=== PATIENT | male | born 1955 | race Caucasian/White ===

== ENCOUNTER 2020-05-22 11:15 | Outpatient (REF) | payer BC, SELFPAY ==
[2020-05-22 11:57] VITALS: BP 159/86; PULSE 80; RESP 16; TEMP 37.3; O2SAT 96
[2020-05-22 11:59] VITALS: BMI 20.3
--- NOTE | 2020-05-22 12:43 | MHC.SHP ---
Pre-Procedural Eval Section A The patient is an INPATIENT: No Changes since office visit: No Cold of Flu in the past 2 weeks, No New Medical Problems, No Changes in Medication and No Patient answered all questions The History & Physical has been completed within 30 days and I have reviewed it.: Yes Section B Chief Complaint: ELEVATED PSA Allergies: Allergies Allergy/AdvReac Type Severity Reaction Status Date / Time penicillin V Allergy Unknown Unverified 02/29/20 00:00 Penicillins [PCN] AdvReac Mild UNKNOWN Unverified 04/12/20 16:18 Plan Patient has been examined and remains a candidate for the planned procedure
--- NOTE | 2020-05-22 12:44 | PM.OP ---
Brief Operative Note Date of procedure: 05/22/20 Pre-op diagnosis: Elevated PSA Post-op diagnosis: same Procedure: 1) TRUS - measure of prostate TRUS - local anesthetic to prostate block TRUS - 12 core biopsy Implants: none Surgeon: Alberto Bernal MD Anesthesia: local Estimated blood loss (mL): 0 Pathology: other (12 core biopsy) Condition: stable Disposition: same day
--- NOTE | 2020-05-22 12:45 | W.PM.OPN ---
Operative Note Operative Note Narrative: Preoperative diagnosis: Elevated PSA Postoperative diagnosis: Elevated PSA Procedure: 1. transrectal ultrasound measurement of prostate 2. transrectal ultrasound-guided pudendal nerve block 3. transrectal ultrasound-guided prostate biopsy 12 core Surgeon: Dr. Alberto Bernal Anesthetic: Local Indications for procedure: Elevated PSA Prostate Cancer Procedure: After informed consent was verified, the patient was brought into the procedure area and lay left-hand side down on the table. Patient identity confirmed. Perioperative antibiotics confirmed. Gel was placed per rectum Ultrasound probe was placed per rectum The prostate was measured in 3 dimensions Total volume equals 40 gm There were no cystic structures, there were minor calcifications noted and the prostate was homogeneous in nature A ultrasound-guided pudendal nerve block was performed using 10 cc of 1% lidocaine. 8 cc was placed at the base and 2 cc of the apex. A 12 core biopsy was performed with 6 cores each side. Two cores were taken at the apex, mid and base. Cores were spaced between lateral and medial. He tolerated the procedure well. Was able to ambulate to bathroom after 5 minutes. Printed instructions regarding antibiotic use and common side effects such as low-grade temperature and bleeding were given.
[2020-05-22 12:58] VITALS: BP 163/82; PULSE 80; RESP 16; O2SAT 96
== END 2020-05-22 11:16 | disposition home or self-care (01) ==
LOC: HO.MS 11:15
PROVIDERS: PCP Internal Medicine; Visit Provider Urology
PROC: (CPT 55700; principal; 2020-05-22 12:00)
DX: C61 Malignant neoplasm of prostate (principal); R97.20 Elevated prostate specific antigen [PSA]; Z88.0 Allergy status to penicillin
CPT/HCPCS: 55700; 76942; 88305; 88344

== ENCOUNTER → 2020-06-06 15:58 | Outpatient (BNVA) | payer BC, SELFPAY | PROVIDERS: PCP Internal Medicine; Visit Provider Urology | DX: Z76.89 Persons encountering health services in other specified circumstances (principal) ==

== ENCOUNTER 2020-09-29 06:49 | Outpatient (REF) | payer BC, SELFPAY ==
[2020-09-29 08:19] LABS: PSA,Total (Free>4and<10) 2.84 ng/mL (0.00-4.00)
== END 2020-09-29 06:50 | disposition home or self-care (01) ==
LOC: HO.LAB 06:49
PROVIDERS: PCP Internal Medicine; Visit Provider Urology
DX: N40.1 Benign prostatic hyperplasia with lower urinary tract symptoms (principal); N13.8 Other obstructive and reflux uropathy; C61 Malignant neoplasm of prostate
CPT/HCPCS: 36415; 84153

== ENCOUNTER 2021-02-12 06:32 | Outpatient (REF) | payer BC, SELFPAY ==
[2021-02-12 07:05] LABS: MANUAL DIFF FLAG NO
[2021-02-12 07:13] LABS: Basophils Absolute Auto 0.1 X10*3/uL (0.0-0.2); Basophils Percent Auto 0.7 % (0-2); Eosinophils Absolute Auto 0.3 X10*3/uL (0.0-0.4); Eosinophils Percent Auto 4.2 % (0-4); Hematocrit 50.5 % (42-52); Hemoglobin 17.6 g/dl (14.0-18.0); Imm Gran Abs Auto 0.02 X10*3/uL (0.00-0.03); Imm Gran Pct Auto 0.3 % (0.0-0.4); Lymphocytes Absolute Auto 1.8 X10*3/uL (1.2-4.9); Mean Corpuscular HGB Conc 34.9 g/dl (31.0-36.0); Mean Corpuscular Hemoglobin 32.2 pg (27.0-33.0); Mean Corpuscular Volume 92.5 fL (80-98); Mean Platelet Volume 9.7 fL (9.4-12.4); Monocytes Absolute Auto 0.8 X10*3/uL (0.1-1.2); Monocytes Percent Auto 10.6 % (2-11); Neutrophils Absolute Auto 4.4 X10*3/uL (2.0-8.3); Neutrophils Percent Auto 59.2 % (45-73); Platelet Count 281 X10*3/uL (160-400); Red Blood Count 5.46 X10*6/uL (4.60-5.80); Red Cell Distribution Width 13.2 % (11.0-16.0); White Blood Count 7.4 X10*3/uL (4.8-10.8)
[2021-02-12 07:45] LABS: Alanine Aminotransferase 22 U/L (0-40); Albumin Level 4.5 g/dL (3.5-5.0); Alkaline Phosphatase 142 U/L (39-117); Anion Gap 14 (12-20); Aspartate Amino Transferase 24 U/L (5-37); Bilirubin Total 0.7 mg/dL (0.0-1.0); Blood Urea Nitrogen 10 mg/dL (9-16); Calcium 9.8 mg/dL (8.4-10.2); Carbon Dioxide 30 mmol/L (22-29); Chloride 97 mmol/L (96-108); Cholesterol 142 mg/dL; Estimated Glomerular Filt Rate > 60; Glucose Random 94 mg/dL (60-115); HDL Cholesterol 46 mg/dL; LDL Cholesterol Calculated 83 mg/dl; Potassium 4.1 mmol/L (3.3-5.1); Sodium 137 mmol/L (135-145); Total Protein 7.6 g/dL (6.5-8.0); Triglycerides 69 mg/dL
[2021-02-12 08:07] LABS: Free T4 (Free Thyroxine) 1.06 ng/dL (0.71-1.85); Thyroid Stimulating Hormone 2.27 uIU/mL (0.32-4.0)
[2021-02-12 08:20] LABS: Folate 7.1 ng/mL (> or = 4.0); Vitamin B12 965 pg/mL (200-900)
[2021-02-12 08:33] LABS: Prostate Specific Antigen Scr 3.31 ng/mL (<0.05-4.0)
== END 2021-02-12 06:33 | disposition home or self-care (01) ==
LOC: HO.LAB 06:32
PROVIDERS: PCP Internal Medicine; Visit Provider Internal Medicine
DX: R97.20 Elevated prostate specific antigen [PSA] (principal); I10 Essential (primary) hypertension; E78.00 Pure hypercholesterolemia, unspecified
CPT/HCPCS: 36415; 80053; 80061; 82607; 82746; 84153; 84439; 84443; 85025

== ENCOUNTER 2021-06-18 06:36 | Outpatient (REF) | payer MEDICARE, SELFPAY ==
[2021-06-18 07:45] LABS: Gamma Glutamyl Transpeptidase 22 U/L (11-51)
[2021-06-18 08:07] LABS: PSA,Total (Free>4and<10) 3.34 ng/mL (0.00-4.00)
[2021-06-23 01:01] LABS: 5' Nucleotidase 3 U/L (0-10)
== END 2021-06-18 06:37 | disposition home or self-care (01) ==
LOC: HO.LAB 06:36
PROVIDERS: Absent Provider Internal Medicine; PCP Internal Medicine; Visit Provider Urology
DX: Z12.5 Encounter for screening for malignant neoplasm of prostate (principal); C61 Malignant neoplasm of prostate; R74.8 Abnormal levels of other serum enzymes
CPT/HCPCS: 36415; 82977; 83915; 84153

== ENCOUNTER → 2021-08-30 08:18 | Outpatient (BNVA) | payer MEDICARE, SELFPAY | PROVIDERS: PCP Internal Medicine; Referring Provider Internal Medicine; Visit Provider Nurse Practitioner Family | DX: R19.5 Other fecal abnormalities (principal) | CPT/HCPCS: 99202 ==

== ENCOUNTER → 2021-11-29 12:15 | Outpatient (BNVA) | payer MEDICARE, SELFPAY | PROVIDERS: PCP Internal Medicine; Visit Provider Urology | DX: C61 Malignant neoplasm of prostate (principal) | CPT/HCPCS: Q3014 ==

== ENCOUNTER 2021-12-19 07:21 | Day surgery (SDC) | payer MEDICARE, SELFPAY ==
[2021-12-13 10:57] VITALS: BMI 19.3
--- NOTE | 2021-12-18 10:41 | HO.ANESPROP2 ---
Documented by User: Ryann Fregoso NP 12/18/21 10:43 HPI - Anesthesia Eval Consult details Narrative: 66yo M for Colonoscopy PMFSH Active Problems Active Problems: All Active Problems (Updated 12/13/21 @ 10:55 by Giovanna Contreras RN) Prostate cancer (Acute) Epistaxis (Acute) Annual physical exam (Acute) Alkaline phosphatase elevation (Acute) Colon cancer screening (Acute) Peripheral vascular disease (Acute) Positive colorectal cancer screening using Cologuard test (Acute) Hypercholesterolemia (Acute) Coronary artery disease (Acute) Tobacco abuse (Acute) COPD (chronic obstructive pulmonary disease) (Acute) Hypertension (Acute) Past Medical History Medical History COPD (chronic obstructive pulmonary disease) Coronary artery disease COVID-19 vaccination refused History of testicular cancer Hypercholesterolemia Hypertension Peripheral arterial disease Tobacco abuse Family History Family History Father No problems noted. Mother No problems noted. Maternal Grandmother Myocardial infarction Brother In good health Sister In good health Son In good health Son In good health Daughter In good health Sister Diabetes Surgical History Surgical History History of testicular surgery History of tonsillectomy Hx of prostate biopsy Social History Social History Housing: House Are you a primary manager progressive care to a significant other at home: No Do you presently have visiting nurse or other home services: No Patient Tobacco Use Status: Current everyday Tobacco user Tobacco use type: Cigarette Cigarette Packs Per Day: 0.5 Cigarettes Per Day: 10 e-Cigarette/Vaping Use: Never Used Second Hand Smoke Exposure: Yes Use of substances other than those prescribed or required for medical reasons: No Have you been hit, kicked, punched, or otherwise hurt by someone within the past year? If so, by whom?: No Are you DNR?: No Advance Directives: No Advance Directives Information Provided: Yes (brochure mailed) Advance Directives on File: No Recently lost weight without trying: No Eating poorly because of decreased appetite: No service: No Current occupational status: employed Current occupational exposures/hazards: No Meds Allergies Allergy/AdvReac Type Severity Reaction Status Date / Time Penicillins [PCN] AdvReac Unknown reaction Verified 12/13/21 10:59 unknown Home Medications Medication Instructions Recorded Confirmed Last Taken Type aspirin 81 mg tablet,delayed 81 mg PO DAILY 03/04/21 12/19/21 12/11/21 History release (Adult Aspirin Regimen) cyanocobalamin (vitamin B-12) 500 500 mcg PO DAILY 03/04/21 12/13/21 Unknown History mcg tablet Exam Exam Date and Time: December 18, 2021 1041 Height,Weight and Vital Signs: Height 6 ft Weight 64.864 kg Assessment and Plan Assessment Anesthesia Assessment: Chart Reviewed Documented by User: Hailey Anderson MD 12/19/21 08:34 [facility] Active Problems Active Problems: All Active Problems (Updated 12/13/21 @ 10:55 by Giovanna Contreras RN) Prostate cancer (Acute) Epistaxis (Acute) Annual physical exam (Acute) Alkaline phosphatase elevation (Acute) Colon cancer screening (Acute) Peripheral vascular disease (Acute) Positive colorectal cancer screening using Cologuard test (Acute) Hypercholesterolemia (Acute) Coronary artery disease (Acute) Tobacco abuse (Acute). Last cigarette this am COPD (chronic obstructive pulmonary disease) (Acute) Hypertension (Acute) Past Medical History Medical History COPD (chronic obstructive pulmonary disease) Coronary artery disease COVID-19 vaccination refused History of testicular cancer Hypercholesterolemia Hypertension Peripheral arterial disease Tobacco abuse Family History Family History Father No problems noted. Mother No problems noted. Maternal Grandmother Myocardial infarction Brother In good health Sister In good health Son In good health Son In good health Daughter In good health Sister Diabetes Family history of problems with anesthesia: No Surgical History Surgical History History of testicular surgery History of tonsillectomy Hx of prostate biopsy History of Problems with Anesthesia: No Social History Social History Housing: House Are you a primary manager progressive care to a significant other at home: No Do you presently have visiting nurse or other home services: No Patient Tobacco Use Status: Current everyday Tobacco user Tobacco use type: Cigarette Cigarette Packs Per Day: 0.5 Cigarettes Per Day: 10 e-Cigarette/Vaping Use: Never Used Second Hand Smoke Exposure: Yes Use of substances other than those prescribed or required for medical reasons: No Have you been hit, kicked, punched, or otherwise hurt by someone within the past year? If so, by whom?: No Are you DNR?: No Advance Directives: No Advance Directives Information Provided: Yes (brochure mailed) Advance Directives on File: No Recently lost weight without trying: No Eating poorly because of decreased appetite: No service: No Current occupational status: employed Current occupational exposures/hazards: No Meds Allergies Allergy/AdvReac Type Severity Reaction Status Date / Time Penicillins [PCN] AdvReac Unknown reaction Verified 12/13/21 10:59 unknown Home Medications Medication Instructions Recorded Confirmed Last Taken Type aspirin 81 mg tablet,delayed 81 mg PO DAILY 03/04/21 12/19/21 12/11/21 History release (Adult Aspirin Regimen) cyanocobalamin (vitamin B-12) 500 500 mcg PO DAILY 03/04/21 12/13/21 Unknown History mcg tablet Exam Height,Weight and Vital Signs: Height 6 ft Weight 64.864 kg Vital Signs Temp Pulse Resp BP Pulse Ox 12/19/21 07:53 73 16 12/19/21 07:47 97.7 F 78 18 166/94 H 96 Airway Mallampati Class: II TM Dist: >3cm Neck ROM: Full Loose/Missing/Broken Teeth: Yes (2 broken teeth. Gingival hyperplasia) Heart: RRR Lungs: CTAB. S/p albuterol treatment Assessment and Plan Assessment Anesthesia Assessment: Anesthesia Plan Discussed Final Anesthetic Review Family History of Problems with Anesthesia: No History of Problems with Anesthesia: No NPO: Yes ASA Class: III Final Preanesthetic Review: No Changes in Pt Med Stat, Meds/Allgs Chart Reviewed, Consent Obtained/Reviewed and Anes Risks/Benef Reviewed Patient Risk: Intermediate Procedure Risk: Low Assessment/Block/Sedation in SS: Assess/Block/Sedation-SS Anesthetic Plan Anesthetic Plan: MAC: Disposition: Standard PACU
--- NOTE | 2021-12-19 07:02 | MHC.SHP ---
Pre-Procedural Eval Section A Date of Service: 12/19/21 Section B Chief Complaint: pos cologuard test Relevant Family History (Specify if Yes): No Relevant Social History: Tobacco Use Present Medications: see Short Stay Collaborative assessment Medical History: Significant History (COPD (chronic obstructive pulmonary disease) Coronary artery disease COVID-19 vaccination refused History of testicular cancer Hypercholesterolemia Hypertension Peripheral arterial disease Tobacco abuse) History of Previous Operations: Relevant previous surgery/procedure and date(s) (History of testicular surgery History of tonsillectomy Hx of prostate biopsy) Allergies: Allergies Allergy/AdvReac Type Severity Reaction Status Date / Time Penicillins [PCN] AdvReac Unknown reaction Verified 12/13/21 10:59 unknown Review of Systems Sugical H&P ROS: Negative: Constitution, Cardiovascular, Respiratory, Neurological, Psychiatric, Hem-Onc, Allergic/Immunologic, Gastrointestinal, Genitourinary, Musculoskeletal, Integumentary, Endocrine and Eyes/Ears/Nose/Throat Exam Surgical H&P Exam: Normal: HEENT, Normal: Heart, Normal: Lungs, Normal: Extremities, Normal: Abdomen, Normal: Skin and Normal: Neurological Plan Diagnosis/Plan: Unchanged I have reviewed the history and physical and performed a pertinent physical examination on my patient. No changes have occurred unless specified.
[2021-12-19 07:47] VITALS: BP 166/94; PULSE 78; RESP 18; TEMP 36.5; O2SAT 96
[2021-12-19 07:53] VITALS: PULSE 73; RESP 16; O2SAT 98
[2021-12-19] MEDS: Albuterol Sulfate (0.083%) 2.5 MG/3 ML VIAL.NEB INHALE (07:53)
[2021-12-19] MEDS: Lactated Ringers 1,000 ML 100 ML IVCONT (07:55)
--- NOTE | 2021-12-19 08:34 | PM.OP ---
Brief Operative Note Date of Service: 12/19/21 Pre-op diagnosis: pos cologuard Post-op diagnosis: same Procedure: see op note Surgeon: Aaron Byers MD Anesthesia: MAC Was an Electrician Technician used for this Procedure?: No Estimated blood loss (mL): 0 Condition: stable Disposition: PACU
--- NOTE | 2021-12-19 08:34 | W.PM.OPN ---
Operative Note Operative Note Date of Service: 12/19/21 Narrative: Operative Information Procedure Description: Colonoscopy Indication: pos cologuard test Anesthesia: MAC COLONOSCOPY Instrument: Olympus variable stiffness pediatric scope 190L Colonoscopy Monitoring: Vital signs and clinical assessment, continuous EKG monitoring, Pulse oximetry, Carbon Dioxide monitoring and blood pressure monitoring were done throughout the procedure. Colon withdrawal time was 34 minutes. Procedure: The patient was placed in the left lateral decubitis position and pre-procedure medications were administered. After a digital rectal examination of the ano-rectum, the video colonoscope was inserted into the rectum and advanced through the colon to the cecum/TI. The colonoscope was slowly withdrawn in a retrograde panoramic fashion and the colon mucosa was carefully examined including a retroflexed view of the rectum. Findings and interventions are described below. Procedure Difficulty: moderate Findings: Terminal Ileum-normal right sided retroflexion normal Cecum:normal Ascending Colon: normal Transverse Colon -normal Descending Colon: x 1 laterally spreading granular polyp lesion, measuring 13-16 mm --injected and lifted with orise then removed piece meal with stiff snare, with edges and base ablated using soft tip coag. x 1 sessile polyp 10 mm removed with cold snare. There was aslo a seesile polyp with a umbilicated center, this was removed with forceps and put in a separate jar measured about 8-10 mm. Sigmoid Colon: normal Rectum: Retroflexion with small internal hemorrhoids, grade I, x 4 sessile polyps 10-12 mm removed with combination of cold snare and forceps Anorectum - normal Colon preparation: [place]ant Bowel Preparation Scale Right colon; 2 Transverse colon: 3 Left colon; 3 (0 = Unprepared colon segment with mucosa not seen due to solid stool that cannot be cleared. 1 = Portion of mucosa of the colon segment seen, but other areas of the colon segment not well seen due to staining, residual stool and/or opaque liquid. 2 = Minor amount of residual staining, small fragments of stool and/or opaque liquid, but mucosa of colon segment seen well. 3 = Entire mucosa of colon segment seen well with no residual staining, small fragments of stool or opaque liquid) Impression and Post Procedure Diagnosis: polyps internal hemorrhoids Plan: High fiber diet leaflet Avoid straining at stool, epsom salts and sitz bath, anusol supps or cream Repeat Colonoscopy in 1 year or earlier if clinically indicated avoid nsaids for 3-5 days apart from baby aspirin Above findings were reviewed with the patient and relevant handouts were provided if indicated.
[2021-12-19 09:25] VITALS: BP 99/62; PULSE 69; RESP 16; TEMP 36.3; O2SAT 98
[2021-12-19 09:40] VITALS: BP 123/75; PULSE 69; RESP 16; O2SAT 97
== END 2021-12-19 10:52 | disposition home or self-care (01) ==
PROVIDERS: PCP Internal Medicine; Visit Provider Internal Medicine Gastroenterology
PROC: 0DBE8ZZ Excision of Large Intestine, Via Natural or Artificial Opening Endoscopic (ICD-10-PCS; CPT 45385; principal; 2021-12-19 08:30)
DX: R19.5 Other fecal abnormalities (principal); D12.4 Benign neoplasm of descending colon; K62.1 Rectal polyp; K64.0 First degree hemorrhoids; J44.9 Chronic obstructive pulmonary disease, unspecified; I25.10 Atherosclerotic heart disease of native coronary artery without angina pectoris; I10 Essential (primary) hypertension; E78.00 Pure hypercholesterolemia, unspecified; I73.9 Peripheral vascular disease, unspecified; Z79.82 Long term (current) use of aspirin; Z79.899 Other long term (current) drug therapy; Z88.0 Allergy status to penicillin; Z85.47 Personal history of malignant neoplasm of testis; F17.210 Nicotine dependence, cigarettes, uncomplicated
CPT/HCPCS: 45385; 45380; 45381; 88305; 94640

== ENCOUNTER → 2022-01-21 08:21 | Outpatient (BNVA) | payer MEDICARE, SELFPAY | PROVIDERS: PCP Internal Medicine; Visit Provider Nurse Practitioner Family | DX: D36.9 Benign neoplasm, unspecified site (principal); Z98.890 Other specified postprocedural states | CPT/HCPCS: 99212 ==

== ENCOUNTER 2022-03-18 07:49 | Outpatient (REF) | payer MEDICARE, SELFPAY ==
--- NOTE | ~2022-03-18 | US_ITS ---
EXAMINATION: US RETROPERITONEAL LIMITED (AORTA) CLINICAL INFORMATION: Peripheral vascular disease. COMPARISON: None TECHNIQUE: Gann-scale, color Doppler and spectral Doppler evaluation of the abdominal aorta. FINDINGS: There is evidence of atherosclerotic disease. The lower abdominal aorta is slightly dilated. The measurements of the aorta in maximum AP and transverse dimensions respectively are as follows: Proximal: 2.1 x 2.2 cm. Mid: cm. Distal: 2.2 x 2.1 2.4 x 3.4 cm. PSV: 63 cm/s cm/s. The measurements of the common iliac arteries in maximum AP and TRV dimensions are as follows: Right Common Iliac Artery: 1.3 x 1.5 cm. No flow is seen in the right common iliac artery. Left Common Iliac Artery: 1.1 x 1.7 cm. Peak systolic velocity measures 137 cm/s with abnormal waveform with loss of diastolic flow. US/US abdominal aortic aneurysm IMPRESSION: Atherosclerotic disease. Mild dilatation of the distal abdominal aorta measuring 2.4 x 3.4 cm. The right common iliac artery appears occluded.
--- NOTE | ~2022-03-18 | US_ITS ---
EXAMINATION: Noninvasive assessment of the arteries of both lower extremities to include a PVR exam limited (1-2 levels) and LAUREANO, bilateral. ? Interventional Radiologist: Mert Adkins M.D., F.S.I.R., F.A.C.R. TECHNIQUE: The ankle/brachial indices of the distal posterior tibial and the dorsalis pedis arteries were obtained of the lower extremity arterial system bilaterally; along with pressures and pulse volume recordings at the ankle and duplex Doppler techniques of the common femoral, proximal femoral and proximal profunda arteries. The study was performed at rest. CLINICAL INFORMATION: This is a 66-year-old male with peripheral arterial disease. Atherosclerosis. Possible abdominal aortic aneurysm. COMPARISON: Comparison is made to previous study dated 03/23/2020. FINDINGS: RIGHT SIDE: The right ankle-brachial index is 0.52 rest. Previously, 0.51. The segmental pressures demonstrate decreased pressures of 80 mmHg in the posterior tibial and 64 mmHg the dorsalis pedis. The PVR waveforms demonstrate decreased waveforms suggesting peripheral arterial disease. RIGHT FEMORAL RUNOFF VELOCITIES: The right common femoral artery measures 119 cm/s and monophasic. Previously, 33 cm/s and monophasic. Right proximal superficial femoral artery measures 28 cm/s and monophasic. Previously, 27 cm/s and monophasic. Mid superficial femoral artery is 31 cm/s and monophasic. Previously, 26 cm/s and monophasic. Distal right superficial femoral artery measures 29 cm/s and monophasic. Previously, 24 cm/s and monophasic. Right popliteal velocity measures 20 cm/s and monophasic. Previously, 18 cm/s and monophasic. The posterior tibial artery velocity measures 7 cm/s and monophasic. Previously, 13 cm/s and monophasic. The right ankle-brachial index is 0.51. Previously, 0.47. The right iliac and proximal right common femoral artery appear to be occluded by duplex ultrasound. LEFT SIDE: The left ankle-brachial index is 0.95 at rest. Previously, 0.98. The segmental pressures demonstrate decreased pressures of 100 mmHg in the dorsalis pedis but relatively normal pressure in the posterior tibial artery measuring 147 mmHg. The PVR waveforms demonstrate decreased waveforms suggesting peripheral arterial disease. LEFT FEMORAL RUNOFF VELOCITIES: The left common femoral artery measures 99 cm/s and biphasic. Previously, 223 cm/s and biphasic. Left proximal superficial femoral artery measures 101 cm/s and biphasic. Previously, 79 cm/s and biphasic. Mid superficial femoral artery is 72 cm/s and biphasic. Previously, 84 cm/s and biphasic. Distal left superficial femoral artery measures 51 cm/s and biphasic. Previously, 57 cm/s and biphasic. Left popliteal velocity measures 54 cm/s and biphasic. Previously, 59 cm/s and biphasic.. The posterior tibial artery velocity measures 51 cm/s and biphasic. Previously, 46 cm/s and biphasic. The left ankle-brachial index is 0.98. Previously, 0.92. US/US arterial duplex LE BI IMPRESSION: 1. RIGHT SIDE: There is severe peripheral arterial disease throughout the right lower extremity with monophasic flow. This is consistent with the known absence of inflow in the right lower extremity. This appears unchanged when compared to the previous exam. The right iliac artery and proximal right common femoral artery appear to be occluded by duplex ultrasound. 2. LEFT SIDE: There now appears to be hemodynamically significant stenosis with elevated velocity in the distal left common femoral artery and extending into the proximal left superficial femoral artery. However, there appears to be compensation with a normal ankle-brachial index. INTERPRETATION CRITERIA FOR PERIPHERAL ARTERIAL DISEASE: > 0.97-1.25 = normal - no significant peripheral arterial disease. (0.95 - 0.91 may be abnormal-consider PVRs and Doppler waveforms). 0.75 - 0.96 = MILD peripheral arterial disease. 0.50 -0.74 = MODERATE peripheral arterial disease. < 0.50 = SEVERE peripheral arterial disease. < 0.30 = CRITICAL peripheral arterial disease. EXAMINATION: US RETROPERITONEAL LIMITED (AORTA) CLINICAL INFORMATION: Peripheral vascular disease. COMPARISON: None TECHNIQUE: Gann-scale, color Doppler and spectral Doppler evaluation of the abdominal aorta. FINDINGS: There is evidence of atherosclerotic disease. The lower abdominal aorta is slightly dilated. The measurements of the aorta in maximum AP and transverse dimensions respectively are as follows: Proximal: 2.1 x 2.2 cm. Mid: cm. Distal: 2.2 x 2.1 2.4 x 3.4 cm. PSV: 63 cm/s cm/s. The measurements of the common iliac arteries in maximum AP and TRV dimensions are as follows: Right Common Iliac Artery: 1.3 x 1.5 cm. No flow is seen in the right common iliac artery. Left Common Iliac Artery: 1.1 x 1.7 cm. Peak systolic velocity measures 137 cm/s with abnormal waveform with loss of diastolic flow. IMPRESSION: Atherosclerotic disease. Mild dilatation of the distal abdominal aorta measuring 2.4 x 3.4 cm. The right common iliac artery appears occluded.
== END 2022-03-18 07:50 | disposition home or self-care (01) ==
LOC: HO.US 07:49
PROVIDERS: Visit Provider Surgery Vascular Surgery
DX: I70.213 Atherosclerosis of native arteries of extremities with intermittent claudication, bilateral legs (principal)
CPT/HCPCS: 76706; 76775; 93923; 93925

== ENCOUNTER → 2022-03-25 09:45 | Outpatient (BNVA) | payer MEDICARE, SELFPAY | PROVIDERS: PCP Internal Medicine; Visit Provider Surgery Vascular Surgery | DX: I73.9 Peripheral vascular disease, unspecified (principal); F17.210 Nicotine dependence, cigarettes, uncomplicated | CPT/HCPCS: 99212 ==

== ENCOUNTER 2022-04-02 15:58 | Outpatient (REF) | payer MEDICARE, SELFPAY ==
[2022-04-02 17:13] LABS: Blood Urea Nitrogen 16 mg/dL (9-16); Estimated Glomerular Filt Rate > 60
== END 2022-04-02 15:59 | disposition home or self-care (01) ==
LOC: HO.LAB 15:58
PROVIDERS: PCP Internal Medicine; Visit Provider Surgery Vascular Surgery
DX: I73.9 Peripheral vascular disease, unspecified (principal)
CPT/HCPCS: 36415; 82565; 84520

== ENCOUNTER 2022-04-04 07:44 | Outpatient (REF) | payer MEDICARE, SELFPAY ==
--- NOTE | ~2022-04-04 | CT_ITS ---
STUDY PERFORMED: CT ANGIOGRAPHY OF THE ABDOMEN, PELVIS AND LOWER EXTREMITY RUNOFF WITH CONTRAST HISTORY: Peripheral vascular disease. DESCRIPTION: Routine abdominal aorta and lower extremity runoff CTA protocol with contrast was performed. 100 mL of Omnipaque 350 intravenous contrast was administered. 3D POSTPROCESSING: Multiple 3-D angiographic images were processed from the initial data set by the [facility] under concurrent physician supervision. This CT examination was performed using dose optimization techniques as appropriate, variously including the following: *Automated exposure control *Adjustment of mA and/or kV according to patient size (this includes techniques or standardized protocols for targeted exams where dose is matched to indication/reason for exam; i.e. extremities or head) *Use of iterative reconstruction technique DLP: 630 mGy-cm COMPARISON: None FINDINGS: VASCULAR: ABDOMINAL AORTA: Severe atherosclerotic changes are present in the abdominal aorta with a large amount of noncalcified irregular plaque. There is also calcified plaque present peripherally There is minimal aneurysmal dilatation seen distally at 2 cm. RIGHT LOWER EXTREMITY: - Common Iliac Artery: Occluded. - Internal Iliac Artery: Occluded. - External Iliac Artery: Occluded. - Common Femoral Artery: Reconstituted but very diseased. - Profunda Femoral Artery: Diseased but patent. - Superficial Femoral Artery: Patent but with moderate disease proximally as well as at the adductor canal. - Popliteal Artery: Patent with stenosis at the level of the knee. - Tibioperoneal Trunk: Patent. - Posterior Tibial Artery: Patent with poor filling of the deep arch. - Peroneal Artery: Small but widely patent. - Anterior Tibial Artery: Calcified plaque but patent to the foot extending into the dorsalis pedis. LEFT LOWER EXTREMITY: - Common Iliac Artery: Calcific plaque, widely patent. - Internal Iliac Artery: Tight origin stenosis with poststenotic dilatation. - External Iliac Artery: Calcific plaque but widely patent. - Common Femoral Artery: Calcific plaque but patent. - Profunda Femoral Artery: Widely patent. - Superficial Femoral Artery: Moderate disease at adductor canal with at least one area of significant stenosis (6:879). - Popliteal Artery: Patent. - Tibioperoneal Trunk: Calcific plaque but patent without significant stenosis - Posterior Tibial Artery: Widely patent filling the deep arch. - Peroneal Artery: Widely patent. - Anterior Tibial Artery: Mild disease but patent and continuous into the dorsalis pedis. CELIOMESENTERIC ARTERIES: The celiac and SMA are patent. The origin of the JACINTO is occluded but branches fill distally. RENAL ARTERIES: Severe atherosclerotic changes are present in both renal arteries proximally with at least moderate stenoses. NONVASCULAR: Lung Bases: Emphysematous changes are present at the lung bases. Some tiny pulmonary micronodules are present. Basilar scarring is seen. Liver, Gallbladder and Biliary Tree: The liver is normal in size, shape, and attenuation. No focal hepatic lesion or biliary ductal dilatation is present. The gallbladder is unremarkable with no evidence of radiopaque gallstones, gallbladder wall thickening, or obvious pericholecystic inflammatory changes. Pancreas: Unremarkable. Spleen: Unremarkable. Adrenal Glands: Unremarkable. Kidneys and Ureters: The kidneys are normal in size, shape, and attenuation. Bilateral small Bosniak class I cysts are seen which need no further imaging or followup. No solid renal masses. No hydronephrosis, hydroureter, or calculi seen. No perinephric stranding. Bladder: Unremarkable. Gastrointestinal Tract: The small and large bowel are unremarkable. The appendix is unremarkable. Abdominal Wall: No significant hernia is appreciated. Lymph Nodes: No retroperitoneal lymphadenopathy. Pelvic Viscera: The prostate and seminal vesicles are unremarkable. Osseous Structures: Degenerative changes are present in the visualized lumbar spine predominantly from L3 through L5. CT/CT angio abd aorta runoff IMPRESSION: 1. Large amount of eccentric irregular noncalcified plaque in the abdominal aorta but no stenosis is seen. 2. On the right, occluded common and external iliac arteries with reconstituted diseased common femoral artery with SFA containing moderate disease proximally and at the adductor canal with popliteal stenosis at the level of the knee and three-vessel runoff. 3. On the left, no significant iliac inflow disease aside from internal iliac stenosis. Moderate disease at the adductor canal with three-vessel runoff described above. 4. Bilateral renal artery stenoses. JACINTO is occluded. 5. Nonvascular findings significant for emphysema and degenerative changes in the spine.
[2022-04-04] MEDS: iohexoL 350 MG/ML 100 ML INFUS..BTL IV (09:00)
== END 2022-04-04 07:45 | disposition home or self-care (01) ==
LOC: HO.CT 07:44
PROVIDERS: Visit Provider Surgery Vascular Surgery
DX: I73.9 Peripheral vascular disease, unspecified (principal)
CPT/HCPCS: 75635; Q9967

== ENCOUNTER → 2022-04-10 11:06 | Outpatient (BNVA) | payer MEDICARE, SELFPAY | PROVIDERS: PCP Internal Medicine; Visit Provider Surgery Vascular Surgery | DX: I73.9 Peripheral vascular disease, unspecified (principal) | CPT/HCPCS: 99212 ==

== ENCOUNTER 2022-07-12 07:00 | Outpatient (REF) | payer MEDICARE, SELFPAY ==
[2022-07-12 07:13] LABS: MANUAL DIFF FLAG NO
[2022-07-12 07:34] LABS: Basophils Absolute Auto 0.1 X10*3/uL (0.0-0.2); Basophils Percent Auto 0.9 % (0-2); Eosinophils Absolute Auto 0.3 X10*3/uL (0.0-0.4); Eosinophils Percent Auto 3.5 % (0-4); Hematocrit 47.7 % (42.0-52.0); Hemoglobin 16.6 g/dl (14.0-18.0); Imm Gran Abs Auto 0.03 X10*3/uL (0.00-0.03); Imm Gran Pct Auto 0.3 % (0.0-0.4); Lymphocytes Absolute Auto 1.9 X10*3/uL (1.2-4.9); Lymphocytes Percent Auto 22.5 % (20-40); Mean Corpuscular HGB Conc 34.8 g/dl (31.0-36.0); Mean Corpuscular Hemoglobin 31.5 pg (27.0-33.0); Mean Corpuscular Volume 90.5 fL (80.0-98.0); Mean Platelet Volume 9.9 fL (9.4-12.4); Monocytes Absolute Auto 1.1 X10*3/uL (0.1-1.2); Monocytes Percent Auto 12.3 % (2-11); Neutrophils Absolute Auto 5.2 x10*3/uL (2.0-8.3); Neutrophils Percent Auto 60.5 % (45-73); Platelet Count 298 X10*3/uL (160-400); Red Blood Count 5.27 X10*6/uL (4.60-5.80); Red Cell Distribution Width 12.5 % (11.0-16.0); White Blood Count 8.6 X10*3/uL (4.8-10.8)
[2022-07-12 08:19] LABS: Alanine Aminotransferase 18 U/L (0-40); Albumin Level 4.1 g/dL (3.5-5.0); Alkaline Phosphatase 126 U/L (39-117); Anion Gap 14 (12-20); Aspartate Amino Transferase 19 U/L (5-37); Bilirubin Total 0.9 mg/dL (0.0-1.0); Blood Urea Nitrogen 15 mg/dL (9-16); Calcium 9.4 mg/dL (8.4-10.2); Carbon Dioxide 30 mmol/L (22-29); Chloride 96 mmol/L (96-108); Cholesterol 136 mg/dL; Estimated Glomerular Filt Rate > 60; Glucose Random 103 mg/dL (60-115); HDL Cholesterol 37 mg/dL; LDL Cholesterol Calculated 87 mg/dl; PSA,Total (Free>4and<10) 1.89 ng/mL (0.00-4.00); Potassium 3.4 mmol/L (3.3-5.1); Sodium 137 mmol/L (135-145); Thyroid Stimulating Hormone 3.42 uIU/mL (0.32-4.0); Total Protein 6.8 g/dL (6.5-8.0); Triglycerides 62 mg/dL
[2022-07-12 08:33] LABS: Folate 7.2 ng/mL (> or = 4.0); Vitamin B12 1574 pg/mL (200-900)
== END 2022-07-12 07:01 | disposition home or self-care (01) ==
LOC: HO.LAB 07:00
PROVIDERS: PCP Internal Medicine; Visit Provider Internal Medicine
DX: Z12.5 Encounter for screening for malignant neoplasm of prostate (principal); I74.5 Embolism and thrombosis of iliac artery; E78.00 Pure hypercholesterolemia, unspecified
CPT/HCPCS: 36415; 80053; 80061; 82607; 82746; 84153; 84439; 84443; 85025

== ENCOUNTER → 2022-09-25 09:52 | Outpatient (BNVA) | payer MEDICARE, SELFPAY | PROVIDERS: PCP Internal Medicine; Visit Provider Surgery Vascular Surgery | DX: I73.9 Peripheral vascular disease, unspecified (principal) | CPT/HCPCS: 99212 ==

== ENCOUNTER 2022-11-03 10:52 | Inpatient (IN) | payer MEDICARE, SELFPAY ==
[2022-10-23 12:01] VITALS: BP 155/85; PULSE 82; RESP 16; O2SAT 97; BMI 21.4
--- NOTE | 2022-10-23 12:50 | P.CONAN_ITS ---
Documented by User: Ryann Fregoso NP 10/23/22 13:12 HPI - Anesthesia Eval Consult details Narrative: 67yo M for Fem-Fem Bypass Graft Cardiac clearance pending - Stress and ECHO [facility] Active Problems Active Problems: All Active Problems (Updated 10/21/22 @ 13:56 by Michael Chery MD) Renal artery stenosis (Acute) Iliac artery occlusion, right (Acute) Prostate cancer (Acute) Epistaxis (Acute) Annual physical exam (Acute) Alkaline phosphatase elevation (Acute) Colon cancer screening (Acute) Peripheral vascular disease (Acute) Positive colorectal cancer screening using Cologuard test (Acute) Hypercholesterolemia (Acute) Coronary artery disease (Acute) Tobacco abuse (Acute) COPD (chronic obstructive pulmonary disease) (Acute) Hypertension (Acute) Past Medical History Medical History COPD (chronic obstructive pulmonary disease) Coronary artery disease COVID-19 vaccination refused History of testicular cancer Hypercholesterolemia Hypertension Peripheral arterial disease Tobacco abuse Tubular adenoma Family History Family History Father No problems noted. Mother No problems noted. Maternal Grandmother Myocardial infarction Brother In good health Sister In good health Son In good health Son In good health Daughter In good health Sister Diabetes Family history of problems with anesthesia: No Surgical History Surgical History History of testicular surgery History of tonsillectomy Hx of colonoscopy Hx of prostate biopsy History of Problems with Anesthesia: No Social History Social History (Updated 10/23/22 @ 12:56 by Ryann Fregoso NP) Housing: House Are you a primary memory care director to a significant other at home: No Do you presently have visiting nurse or other home services: No Alcohol intake: former Patient Tobacco Use Status: Current everyday Tobacco user Tobacco use type: Cigarette Cigarette Packs Per Day: 0.5 Cigarettes Per Day: 10 Years Smoked: 50+ e-Cigarette/Vaping Use: Never Used Second Hand Smoke Exposure: No service: No Current occupational status: employed Current occupational exposures/hazards: No Cognitive needs: No Hearing needs: No Vision needs: Yes Narrative Narrative: No recent illness No CP/SOB within very limited activity d/t LE pain Meds Allergies Allergy/AdvReac Type Severity Reaction Status Date / Time Penicillins [PCN] Allergy Intermediate Hives Verified 10/23/22 12:37 Home Medications Medication Instructions Recorded Confirmed Last Taken Type aspirin 81 mg tablet,delayed 81 mg PO .@0603/04/21 10/23/22 12/11/21 History release (Adult Aspirin Regimen) cyanocobalamin (vitamin B-12) 500 mcg PO .@1800 09/25/22 10/23/22 Unknown History 1,000 mcg capsule amlodipine 10 mg tablet 10 mg PO .@59910/23/22 10/23/22 11/03/22 05:00 History atorvastatin 80 mg tablet 80 mg PO .@59910/23/22 10/23/22 Unknown History clonidine HCl 0.1 mg tablet 0.1 mg PO .@06+179910/23/22 10/23/22 11/03/22 05:00 History finasteride 5 mg tablet 5 mg PO .@179910/23/22 10/23/22 Unknown History hydrochlorothiazide 50 mg tablet 50 mg PO .@59910/23/22 10/23/22 Unknown History metoprolol succinate 25 mg 25 mg PO .@179910/23/22 Unknown History tablet,extended release 24 hr Exam Exam Date and Time: October 23, 2022 1250 Height,Weight and Vital Signs: Height 5 ft 10 in Weight 67.7 kg Last Vital Signs Pulse 82 10/23/22 12:01 Resp 16 10/23/22 12:01 BP 155/85 H 10/23/22 12:01 Pulse Ox 97 10/23/22 12:01 O2 Del Method Room Air 10/23/22 12:01 Airway Mallampati Class: I TM Dist: >3cm Neck ROM: Full Loose/Missing/Broken Teeth: Yes (Front upper capped, Right upper front broken, Right lower molar broken) Heart: RRR, ? faint murmur Lungs: CTAB Assessment and Plan Assessment Anesthesia Assessment: Anesthesia Plan Discussed, Smoking Cess. Discussed and PAT Visit Final Anesthetic Review Family History of Problems with Anesthesia: No History of Problems with Anesthesia: No Documented by User: Fabiano Mcwilliams MD 11/03/22 07:31 [facility] Past Medical History Medical History COPD (chronic obstructive pulmonary disease) Coronary artery disease COVID-19 vaccination refused History of testicular cancer Hypercholesterolemia Hypertension Peripheral arterial disease Tobacco abuse Tubular adenoma Family History Family History Father No problems noted. Mother No problems noted. Maternal Grandmother Myocardial infarction Brother In good health Sister In good health Son In good health Son In good health Daughter In good health Sister Diabetes Surgical History Surgical History History of testicular surgery History of tonsillectomy Hx of colonoscopy Hx of prostate biopsy Social History Social History (Updated 10/23/22 @ 12:56 by Ryann Fregoso NP) Housing: House Are you a primary memory care director to a significant other at home: No Do you presently have visiting nurse or other home services: No Alcohol intake: former Patient Tobacco Use Status: Current everyday Tobacco user Tobacco use type: Cigarette Cigarette Packs Per Day: 0.5 Cigarettes Per Day: 10 Years Smoked: 50+ e-Cigarette/Vaping Use: Never Used Second Hand Smoke Exposure: No service: No Current occupational status: employed Current occupational exposures/hazards: No Cognitive needs: No Hearing needs: No Vision needs: Yes Meds Allergies Allergy/AdvReac Type Severity Reaction Status Date / Time Penicillins [PCN] Allergy Intermediate Hives Verified 10/23/22 12:37 Home Medications Medication Instructions Recorded Confirmed Last Taken Type aspirin 81 mg tablet,delayed 81 mg PO .@0600 03/04/21 10/23/22 12/11/21 History release (Adult Aspirin Regimen) cyanocobalamin (vitamin B-12) 500 mcg PO .@1800 09/25/22 10/23/22 Unknown History 1,000 mcg capsule amlodipine 10 mg tablet 10 mg PO .@0610/23/22 10/23/22 11/03/22 05:00 History atorvastatin 80 mg tablet 80 mg PO .@0610/23/22 10/23/22 Unknown History clonidine HCl 0.1 mg tablet 0.1 mg PO .@0600+1800 10/23/22 10/23/22 11/03/22 05:00 History finasteride 5 mg tablet 5 mg PO .@1800 10/23/22 10/23/22 Unknown History hydrochlorothiazide 50 mg tablet 50 mg PO .@0600 10/23/22 10/23/22 Unknown History metoprolol succinate 25 mg 25 mg PO .@1800 10/23/22 Unknown History tablet,extended release 24 hr Assessment and Plan Final Anesthetic Review ASA Class: III Final Preanesthetic Review: No Changes in Pt Med Stat, Meds/Allgs Chart Reviewed, Consent Obtained/Reviewed and Anes Risks/Benef Reviewed Patient Risk: Intermediate Procedure Risk: High Anesthetic Plan Anesthetic Plan: GA (Nl ef, no ischemia on ETT) Disposition: Standard PACU
[2022-10-23 14:05] LABS: Hematocrit 47.5 % (42.0-52.0); Hemoglobin 16.1 g/dl (14.0-18.0); Mean Corpuscular HGB Conc 33.9 g/dl (31.0-36.0); Mean Corpuscular Volume 88.6 fL (80.0-98.0); Mean Platelet Volume 10.1 fL (9.4-12.4); Platelet Count 289 X10*3/uL (160-400); Red Blood Count 5.36 X10*6/uL (4.60-5.80); Red Cell Distribution Width 13.5 % (11.0-16.0); White Blood Count 8.3 X10*3/uL (4.8-10.8)
[2022-10-23 14:07] LABS: INTERNATIONAL NORM RATIO 1.1 (0.9-1.1); Prothrombin Time 13.2 SEC (10.0-13.1)
[2022-10-23 14:10] LABS: Partial Thromboplastin Time 35.6 SEC (26.0-36.4)
[2022-10-23 15:01] LABS: Anion Gap 17 (12-20); Blood Urea Nitrogen 20 mg/dL (9-16); Calcium 10.1 mg/dL (8.4-10.2); Carbon Dioxide 28 mmol/L (22-29); Chloride 97 mmol/L (96-108); Creatinine Clr Calc Pharmacy 56.5; Estimated Glomerular Filt Rate 59; Glucose Random 91 mg/dL (60-115); Potassium 4.1 mmol/L (3.3-5.1); Sodium 138 mmol/L (135-145)
[2022-11-03] VITALS (20 sets, daily range): BP systolic 116–175; BP diastolic 67–88; PULSE 61–92; RESP 9–20; TEMP 36.3–37.6; O2SAT 95–100
[2022-11-03] MEDS: Lactated Ringers 1,000 ML 50 ML IVCONT (06:41)
[2022-11-03 06:46] LABS: COVID-19 Test Negative (Negative); IDNOW Serial# BCCEAD1C
[2022-11-03 07:01] LABS: Hemoglobin 15.6 g/dl (14.0-18.0); Mean Corpuscular HGB Conc 34.7 g/dl (31.0-36.0); Mean Corpuscular Hemoglobin 30.4 pg (27.0-33.0); Mean Corpuscular Volume 87.7 fL (80.0-98.0); Mean Platelet Volume 9.6 fL (9.4-12.4); Platelet Count 275 X10*3/uL (160-400); Red Blood Count 5.13 X10*6/uL (4.60-5.80); Red Cell Distribution Width 13.2 % (11.0-16.0); White Blood Count 9.1 X10*3/uL (4.8-10.8)
[2022-11-03 07:05] LABS: INTERNATIONAL NORM RATIO 1.2 (0.9-1.1); Prothrombin Time 13.3 SEC (10.0-13.1)
[2022-11-03 07:08] LABS: Partial Thromboplastin Time 33.2 SEC (26.0-36.4)
[2022-11-03 07:18] LABS: Anion Gap 14 (12-20); Blood Urea Nitrogen 22 mg/dL (9-16); Calcium 9.4 mg/dL (8.4-10.2); Carbon Dioxide 33 mmol/L (22-29); Chloride 96 mmol/L (96-108); Creatinine Clr Calc Pharmacy 55.2; Estimated Glomerular Filt Rate 57; Glucose Random 107 mg/dL (60-115); Potassium 3.5 mmol/L (3.3-5.1); Sodium 139 mmol/L (135-145)
[2022-11-03] MEDS: ceFAZolin Sodium/Dextrose,Iso 2 GM/50 ML PIGGYBACK IV ×2 (07:43→11:58)
--- NOTE | 2022-11-03 10:55 | P.OP_ITS ---
Operative Note Operative Note Date of Service: 11/03/22 Narrative: Operative note by [facility] Preoperative diagnosis: Atherosclerosis with activity limiting claudication Postoperative diagnosis: Same Procedure:1. Right common femoral endarterectomy with remote endarterectomy of SFA and profundus 2. Femoral to femoral bypass 3. Left femoral endarterectomy with her remote endarterectomy of the SFA and profundus Surgeon:Regulo Veras M.D. Stonework Tracer: Dr. Moore Anesthesia: General Specimens: 2 Drains: None Estimated blood loss: 300 mL Indications: 67-year-old gentleman who has difficulty ambulating distances presents for operative intervention. Reports that he can barely walk half a block prior to any difficulty. Unable to golf. He now presents for operative intervention. The patient has signed the informed consent after reviewing risks, complications, benefits, and alternatives previously discussed with the patient. The patient was given the opportunity to ask any additional questions or voice any concerns. All questions were answered to the patient's satisfaction. Procedure in detail: Patient was brought to the operating room prior to which a time-out was called for patient identification site verification abdomen and groins were prepped and draped in standard surgical fashion. We made a longitudinal incision over the right SFA 1st. We dissected down to the common femoral. We identified the inguinal ligament and encircled the common femoral at that location. We were also able down dissect down to the SFA and profundus femorals and these were also isolated with silastic loops in a similar fashion left groin cutdown was created as well. We then created a tunnel using a aortic clamp from femoral to femoral. Once this was accomplished we administered 5000 units of systemic heparin. After 5 minutes of circulation time we 1st turned our attention to the left side. Using a [place] Propaten 6 x 50 we trimmed this to the appropriate side. We then isolated the left vessel by clamping on the common femoral SFA and profundus. Arteriotomy was created and endarterectomy was performed. We had to do a remote SFA and profundus femorals endarterectomy as well. We circumferentially anastomosed the [place] Propaten we using a CV 6 [place] suture. Once this was completed we flushed through the graft. We then had to put several interrupted 6 0 Prolene sutures to obtain hemostasis. Once this was accomplished this was brought from the left over to the right. In a similar fashion we clamped off the right common femoral SFA and profundus. Arteriotomy was created. We then did endarterectomy and trimmed the graft down and circumferentially anastomosed prior to closure we flushed this clear. The graft was flushed clean as well. We completed the anastomosis adequate hemostasis was achieved. Tisseel sealant was placed. We closed the groins in layers using 2 0 poly Sorb 3-0 poly Sorb and finally skin with skin clips. Sterile dressings were applied. At the end the case sponge instrument counts were correct. Patient tolerated the procedure well and returned to recovery with palpable bilateral dorsalis pedis pulses. This note is constructed using voice recognition software. While every effort has been made to ensure accuracy, pharmacy benefit manager errors may have been included. Thank you for allowing me to participate in the care of your patient. Yours sincerely, Regulo Veras MD, FACS, R.P.V.I.
--- NOTE | 2022-11-03 11:00 | MHC.SHP ---
Pre-Procedural Eval Section A Date of Service: 11/03/22 The patient is an INPATIENT: No Changes since office visit: Yes Patient answered all questions The History & Physical has been completed within 30 days and I have reviewed it.: Yes Section B Chief Complaint: Peripheral vascular disease, unspecified Allergies: Allergies Allergy/AdvReac Type Severity Reaction Status Date / Time Penicillins [PCN] Allergy Intermediate Hives Verified 10/23/22 12:37 Plan I have reviewed the history and physical and performed a pertinent physical examination on my patient. No changes have occurred unless specified. Time Spent With Patient Time: Total time managing care of this patient today ____ minutes.
--- OUTSIDE RECORDS SUMMARY | 2022-11-03 11:21 | XMS_ITS | Continuity of Care Document ---
Author Name Unknown Organization [facility] Address [address] [address]- Care Team Providers Care Milling Supervisor Name Role Phone Po Michael RIBEIRO Primary Care Physician [phone] [place] [facility] [place] - 10/29/22 [facility] [address] [address]- Attending Physician: Derek Romo MD Admitting Physician: Derek Romo MD Referring Physician: Derek Romo MD Allergies, Adverse Reactions, Alerts Substance Reaction Severity Status penicillins Active Immunizations Not Given Vaccine Date Status Refusal Reason influenza virus vaccine, inactivated 10/22/15 Not Given Patient Refuses Medications Amlodipine = 10 mg, By Mouth, Daily, 0 Refills, Maintenance, 10/21/15 13:16:51 Start Date: 10/21/15 Status: Ordered Aspirin Tablet 81 mg, By Mouth, Daily, Refills 0, Maintenance, 10/21/15 13:17:33 Start Date: 10/21/15 Status: Ordered Combivent Respimat 1 puffs, Inhalation, 4 times a day, 0 Refills, Maintenance, 10/22/15 14:59:09 Start Date: 10/22/15 Status: Ordered Hydrochlorothiazide = 25 mg, By Mouth, Daily, 0 Refills, Maintenance, 10/21/15 13:17:00 Start Date: 10/21/15 Status: Ordered Imdur 30 mg oral tablet, extended release 30 mg, 1, tablet, By Mouth, Daily in AM, # 30 tablet, Refills 3, Tot. Refills 3, Maintenance, 11/12/15 11:42:36, Route to Pharmacy Electronically, [id number], [facility] Start Date: 11/12/15 Stop Date: 03/11/16 Status: Ordered metoprolol 25 mg oral tablet, extended release 25 mg, 1, tablet, By Mouth, Daily, # 30 tablet, Refills 0, Tot. Refills 0, Maintenance, 10/22/15 14:59:45, Route to Pharmacy Electronically, [id number], [facility] Start Date: 10/22/15 Status: Ordered nitroglycerin 0.4 mg sublingual tablet = 0.4 mg, Sublingual, Every 5 minutes, PRN Chest Pain, 0 Refills, Maintenance, 11/12/15 11:47:55, Tablet Start Date: 11/12/15 Status: Ordered Prilosec OTC = 20 mg, By Mouth, Daily, 0 Refills, Maintenance, 10/21/15 13:16:44 Start Date: 10/21/15 Status: Ordered Symbicort 160mcg/4.5mcg Inhaler 2, puffs, Inhalation, 2 times a day, Refills 0, Maintenance, 10/22/15 14:58:59 Start Date: 10/22/15 Status: Ordered Social History Social History Type Response Smoking Status Current every day ion frausto entered on: 10/21/15 Sex Note * Event Display: Stress Nuc with Regadenoson Please click on pdf link to open report * Event Display: NM Myocard Perf SPECT Multi Authored Date: * Event Display: NM Myocard Perf SPECT Multi Authored Date: Myocardial Perfusion Imaging Demographics Patient Name TEENA VIRAMONTES Gender Male [employer] Room Number Height 72 inches Date of 1955 Weight 145.5 pounds Age 67 year(s) BSA 1.86 m2 Accession Number [id number] BMI 19.71 kg/m2 Date of study 10/22/2022 Resident Referring Physician Derek Romo MD Interpreting Physician Yolanda Bruno MD NM Technologist Raeann Woods Procedure Procedure Type: Myocardial Perfusion Imaging:NM Myocardial Perfusion Spect Multi Indications: Pre-op Cardiovascular exam. Risk Factors The patient risk factors include:Current - Every day tobacco use, hypercholesterolemia and hypertension. Stress Protocols Resting ECG Sinus rhythm. Premature Ventricular Contractions. Resting HR:73 bpm Resting BP:165/95 mmHg Pre-stress physical exam: The patient's medications include CLONIDINE, AMLODIPINE, METOPTOLOL, HCTZ, ATORVASTATIN, ASA, FINASTERIDE, INHALER. Stress Protocol:Pharmacologic - IV Regadenoson Dose: 0.4 mg Peak HR:109 bpm HR response: Not assessed Peak BP:182/84 mmHg (pharmacologic study) Predicted HR: 154 bpm HR recovery: Not Assessed % of predicted HR: 71 (Pharmacologic Study) Test duration: 1 min BP response: Resting hypertension Reason for termination:Protocol complete with appropriate response Functional capacity:Not assessed HR/BP product: Time of RP Injection:00:44 min Chest pain:No chest pain ST Changes:No ST segment changes Arrhythmias Ventricular Premature Beats, Isolated. Stress Interpretation Pharmacologic study only. Physiologic response not assessed - pharm stress. No EKG evidence of ischemia. Imaging Protocols - One Day Rest Stress Isotope:Tc99m Sestamibi Isotope: Tc99m Sestamibi Isotope dose:9.3 mCi IV Isotope dose:36.4 mCi IV Date:10/22/2022 Date:10/22/2022 Time to Rest Imagin minutes Time to Stress Imagin minutes Technique: Gated Technique: Gated Supine Supine Imaging Findings Study quality is good. Post stress imaging reveal very small mild decrease in isotope uptake in the anteroapical and inferoapical domingo. Rest imaging shows no change in defects and there is decreased inferior isotope uptake. Gated SPECT LVEF is normal and there are no regional wall motion abnormalities. Imaging Results Summed scores - Summed stress score: 0 - Summed rest score: 0 - Summed difference score: 0 Rest ejection Stress ejection Ejection fraction:90 % Ejection fraction:77 % EDV :68 ml EDV :87 ml ESV :7 ml ESV :20 ml Stroke volume :61 ml Stroke volume :67 ml LV mass :98 gr LV mass :122 gr Conclusions Summary 1. Myocardial perfusion imaging is probably normal without reversible perfusion defect after Regadenoson infusion. Very small mild fixed inferoapical and anteroapical defects likely secondary to artifact. 2. LV function is normal with an E.F. of 90% at rest and 77% after IV administration of Regadenoson with normal wall motion and thickening. 3. EKG portion of the stress test is reported separately. Signatures Patient Care team information Care Team Personnel Name: Michael Chery MD Position: Reference Physician Member Role: PCP Address: Address: [address] [place] [id number]- Care Team Related Persons Name: LILIYA DICKINSON Address: [address] [address]
--- NOTE | 2022-11-03 11:26 | PHA.MEDREC ---
Pharmacy Consult ? Medication Reconciliation Pharmacy has completed the medication reconciliation. Pharmacy has reviewed med rec done by short stay
[2022-11-03] MEDS: 0.9 % Sodium Chloride 1,000 ML 80 ML IVCONT (11:57)
[2022-11-03] MEDS: Atorvastatin Calcium 80 MG TABLET PO (12:00)
[2022-11-03] MEDS: Aspirin Enteric Coated 81 MG TABLET.DR PO (12:00)
[2022-11-03] MEDS: oxyCODONE HCl Immed Release 5 MG TABLET PO ×2 (12:18→19:57)
[2022-11-03] MEDS: hydroCHLOROthiazide 50 MG TABLET PO (12:40)
--- NOTE | 2022-11-03 16:00 | W.PM.CCCN ---
History of Present Illness Data of Consult Service Date: 11/03/22 Requesting physician: Regulo Veras Primary Care Provider: Michael Chery MD [facility] Reason for consult: 67-year-old continued smoker with hypercholesterolemia and and hypertensio 67-year-old with known peripheral vascular disease continued smoker and hypertensive with underlying COPD and hypercholesterolemia and because of a progressive claudication and then eventually resting pain with dependent rubor and and blue discoloration of his right lower extremity/foot representing a limb threatening ischemic issue and and also having known for 9 months peripheral disease involving occlusion of his common iliac and external iliac on the right side he underwent successful femoral to femoral bypass without complication no no bleeding and foot color and warmth immediately had improved preoperative noninvasive workup showed no evidence of ischemia on adenosine nuclear stress testing and 65% ejection fraction without primary valve or pericardial disease by echo Review of Systems Review of Systems: Yes all other systems are reviewed and are negative [facility] Past Medical History Medical History COPD (chronic obstructive pulmonary disease) Coronary artery disease COVID-19 vaccination refused History of testicular cancer Hypercholesterolemia Hypertension Peripheral arterial disease Tobacco abuse Tubular adenoma Family History Family History Father No problems noted. Mother No problems noted. Maternal Grandmother Myocardial infarction Brother In good health Sister In good health Son In good health Son In good health Daughter In good health Sister Diabetes Surgical History Surgical History History of testicular surgery History of tonsillectomy Hx of colonoscopy Hx of prostate biopsy Social History Social History (Updated 10/23/22 @ 12:56 by Ryann Fregoso NP) Household Members: Spouse Housing: House Are you a primary daycare assistant to a significant other at home: No Do you presently have visiting nurse or other home services: No Alcohol intake: former Patient Tobacco Use Status: Current everyday Tobacco user Tobacco use type: Cigarette Cigarette Packs Per Day: 0.5 Cigarettes Per Day: 8 Years Smoked: 53 years Smoked in Last 30 Days: Yes e-Cigarette/Vaping Use: Currently Using Patient Interested in Nicotine Replacement: Yes Patient Given Instructions on How to Stop Smoking: Yes Date Education Initiated: 11/03/22 Second Hand Smoke Exposure: Yes Use of substances other than those prescribed or required for medical reasons: No Currently Displaying Signs/Symptoms of Drug Intoxication Withdrawal: No Have you been hit, kicked, punched, or otherwise hurt by someone within the past year? If so, by whom?: No Do you feel safe in your current relationship?: Yes Is there a partner from a previous relationship who is making you feel unsafe now?: No Are you made to feel afraid or neglected: No Spiritual Healthcare Practices: none per patient Worship Healthcare Practices: Christian Cultural Healthcare Practices: none per patient Are you DNR?: No Advance Directives: No Advance Directives Information Provided: Yes Advance Directives on File: No Do you have thoughts of harming others: None Do you have a plan to hurt others: No Plan Recently lost weight without trying: No Eating poorly because of decreased appetite: Yes Nutrition Risks: No Nutritional Risk Poor oral hygiene: Yes service: No Current occupational status: employed Current occupational exposures/hazards: No Cognitive needs: No Hearing needs: No Vision needs: Yes Meds Allergies Allergy/AdvReac Type Severity Reaction Status Date / Time Penicillins [PCN] Allergy Intermediate Hives Verified 10/23/22 12:37 Active Medications: Current Medications Acetaminophen (Acetaminophen 325 Mg Tablet) 650 mg PO Q6H PRN PRN Reason: Pain, Mild (Pain Scale 1-3) Amlodipine Besylate (Amlodipine Besylate 10 Mg Tablet) 10 mg PO DAILY@0600 [facility]; Protocol Last Admin: 11/03/22 12:36 Dose: Not Given Aspirin (Aspirin Enteric Coated 81 Mg Tablet.) 81 mg PO DAILY@0600 [facility] Last Admin: 11/03/22 12:00 Dose: 81 mg Atorvastatin Calcium (Atorvastatin Calcium 80 Mg Tablet) 80 mg PO DAILY@0600 [facility] Last Admin: 11/03/22 12:00 Dose: 80 mg Clonidine HCl (Clonidine Hcl 0.1 Mg Tablet) 0.1 mg PO BID@0600,1800 [facility]; Protocol Last Admin: 11/03/22 12:37 Dose: Not Given Cyanocobalamin (Cyanocobalamin (Vitamin B-12) 500 Mcg Tablet) 500 mcg PO DAILY@1800 [facility] Finasteride (Finasteride 5 Mg Tablet) 5 mg PO DAILY@1800 [facility] Hydrochlorothiazide (Hydrochlorothiazide 50 Mg Tablet) 50 mg PO DAILY@0600 [facility]; Protocol Last Admin: 11/03/22 12:40 Dose: 50 mg Sodium Chloride (Ns) 1,000 mls @ 80 mls/hr IVCONT .[id number] [facility] Last Admin: 11/03/22 11:57 Dose: 80 mls/hr Morphine Sulfate (Morphine Sulfate 2 Mg/Ml Cartridge) 2 mg IVPUSH Q4H PRN; Protocol PRN Reason: Pain, Severe (Pain Scale 7-10) Oxycodone HCl (Oxycodone Hcl Immed Release 5 Mg Tablet) 5 mg PO Q4H PRN PRN Reason: Pain, Moderate (Pain Scale 4-6 Last Admin: 11/03/22 12:18 Dose: 5 mg Sodium Chloride (0.9 % Sodium Chloride Flush 3 Ml Syringe) 3 ml IVFLUSH QSHIFT [facility] Home Medications Medication Instructions Recorded Confirmed Last Taken Type aspirin 81 mg tablet,delayed 81 mg PO .@0603/04/21 10/23/22 12/11/21 History release (Adult Aspirin Regimen) cyanocobalamin (vitamin B-12) 500 mcg PO .@1800 09/25/22 10/23/22 Unknown History 1,000 mcg capsule amlodipine 10 mg tablet 10 mg PO .@0610/23/22 10/23/22 11/03/22 05:00 History atorvastatin 80 mg tablet 80 mg PO .@59910/23/22 10/23/22 Unknown History clonidine HCl 0.1 mg tablet 0.1 mg PO .@0600+1800 10/23/22 10/23/22 11/03/22 05:00 History finasteride 5 mg tablet 5 mg PO .@179910/23/22 10/23/22 Unknown History hydrochlorothiazide 50 mg tablet 50 mg PO .@0610/23/22 10/23/22 Unknown History metoprolol succinate 25 mg 25 mg PO .@1800 10/23/22 11/03/22 Unknown History tablet,extended release 24 hr Physical Exam Vital Signs: Vital Signs: Last Vital Signs Temp 97.9 F 11/03/22 12:00 Pulse 70 11/03/22 15:00 Resp 13 11/03/22 15:00 BP 127/73 11/03/22 15:00 Pulse Ox 97 11/03/22 15:00 O2 Del Method Room Air 11/03/22 15:00 O2 Flow Rate 6 11/03/22 10:51 BMI result Body Mass Index 21.4 Awake alert neurologically nonfocal good bilateral carotid upstrokes no bruits no gallops lungs without adventitious sounds just diminished breath sounds bilaterally abdomen is soft no organomegaly operative site without significant hematoma and no active bleeding right lower extremity color and warmth is good Results Labs 11/03/22 06:51 11/03/22 06:50 Labs: Short CBC 11/03/22 Range/Units 06:51 WBC 9.1 (4.8-10.8) X10*3/uL Hgb 15.6 (14.0-18.0) g/dl Hct 45.0 (42.0-52.0) % Plt Count 275 (160-400) X10*3/uL BMP 11/03/22 06:50 Sodium 139 Potassium 3.5 Chloride 96 Carbon Dioxide 33 H BUN 22 H Creatinine 1.26 Calcium 9.4 D Assessment and Plan (1) Renal artery stenosis: Status: Acute (2) Iliac artery occlusion, right: Status: Acute (3) Prostate cancer: Status: Acute (4) Alkaline phosphatase elevation: Status: Acute (5) Peripheral vascular disease: Status: Acute (6) Hypercholesterolemia: Status: Acute (7) Coronary artery disease: Qualifiers: Coronary Disease-Associated Artery/Lesion type: [place] artery [place] vs. transplanted heart: [place] heart Associated angina: without angina Qualified Code(s): I25.10 - Atherosclerotic heart disease of [place] coronary artery without angina pectoris Status: Acute (8) Tobacco abuse: Status: Acute (9) COPD (chronic obstructive pulmonary disease): Qualifiers: COPD type: emphysema Emphysema type: panlobular Qualified Code(s): J43.1 - Panlobular emphysema Status: Acute (10) Hypertension: Qualifiers: Hypertension type: essential hypertension Qualified Code(s): I10 - Essential (primary) hypertension Status: Acute Plan simple observation as exam and lab work oral negative and if no apparent complication such as redevelopment of ischemia of the foot or a bleed etc. should take place then should be okay to transfer to the floor for the balance of his convalescence Time Spent With Patient Time: Total time managing care of this patient today _30___ minutes.
[2022-11-03] MEDS: Finasteride 5 MG TABLET PO (16:40)
[2022-11-03] MEDS: cloNIDine HCL 0.1 MG TABLET PO (16:41)
[2022-11-03] MEDS: Cyanocobalamin (Vitamin B-12) 500 MCG TABLET PO (16:41)
[2022-11-04] VITALS (13 sets, daily range): BP systolic 107–152; BP diastolic 63–81; PULSE 61–84; RESP 12–18; TEMP 36.2–36.6; O2SAT 94–97; BMI 22.1
[2022-11-04] MEDS: Melatonin 3 MG TABLET 6 MG PO (00:21)
[2022-11-04] MEDS: 0.9 % Sodium Chloride 1,000 ML 80 ML IVCONT (00:22)
[2022-11-04] MEDS: oxyCODONE HCl Immed Release 5 MG TABLET PO ×3 (03:32→21:22)
[2022-11-04 04:46] LABS: MANUAL DIFF FLAG NO
[2022-11-04 04:49] LABS: Basophils Percent Auto 0.1 % (0-2); Eosinophils Percent Auto 0.1 % (0-4); Hematocrit 30.3 % (42.0-52.0); Imm Gran Abs Auto 0.06 X10*3/uL (0.00-0.03); Imm Gran Pct Auto 0.4 % (0.0-0.4); Lymphocytes Absolute Auto 1.5 X10*3/uL (1.2-4.9); Lymphocytes Percent Auto 9.3 % (20-40); Mean Corpuscular Hemoglobin 30.7 pg (27.0-33.0); Mean Corpuscular Volume 87.8 fL (80.0-98.0); Mean Platelet Volume 10.1 fL (9.4-12.4); Monocytes Absolute Auto 1.1 X10*3/uL (0.1-1.2); Monocytes Percent Auto 7.2 % (2-11); Neutrophils Absolute Auto 13.1 x10*3/uL (2.0-8.3); Neutrophils Percent Auto 82.9 % (45-73); Platelet Count 212 X10*3/uL (160-400); Red Blood Count 3.45 X10*6/uL (4.60-5.80); Red Cell Distribution Width 13.3 % (11.0-16.0); White Blood Count 15.8 X10*3/uL (4.8-10.8)
[2022-11-04 05:09] LABS: Anion Gap 13 (12-20); Blood Urea Nitrogen 18 mg/dL (9-16); Calcium 8.3 mg/dL (8.4-10.2); Carbon Dioxide 28 mmol/L (22-29); Chloride 99 mmol/L (96-108); Creatinine Clr Calc Pharmacy 69.5; Estimated Glomerular Filt Rate > 60; Glucose Random 116 mg/dL (60-115); Potassium 3.5 mmol/L (3.3-5.1); Sodium 136 mmol/L (135-145)
[2022-11-04 05:14] LABS: Hemoglobin 10.6 g/dl (14.0-18.0)
[2022-11-04] MEDS: amLODIPine Besylate 10 MG TABLET PO (05:51)
[2022-11-04] MEDS: Aspirin Enteric Coated 81 MG TABLET.DR PO (05:51)
[2022-11-04] MEDS: cloNIDine HCL 0.1 MG TABLET PO ×2 (05:51→17:02)
[2022-11-04] MEDS: hydroCHLOROthiazide 50 MG TABLET PO (05:51)
[2022-11-04] MEDS: Atorvastatin Calcium 80 MG TABLET PO (05:52)
--- NOTE | 2022-11-04 09:37 | P.PNVS_ITS ---
Subjective Subjective Date of Service: 11/04/22 Patient reports: no new complaints and feels better Interval history: Patient is postop day 1 status post fem-fem bypass. No interval issues overnight. Reports that he is feeling fairly well. Pain well controlled. Now for routine follow-up. Physical Exam Vital Signs: Vital Signs: Last Vital Signs Temp 97.5 F 11/04/22 08:00 Pulse 63 11/04/22 09:00 Resp 12 11/04/22 09:00 BP 133/71 11/04/22 09:00 Pulse Ox 97 11/04/22 09:00 O2 Del Method Room Air 11/04/22 09:00 O2 Flow Rate 6 11/03/22 10:51 BMI result Body Mass Index 22.1 Const: General: cooperative, healthy appearing and no acute distress Orientation/consciousness: oriented to person, oriented to place and oriented to time HEENT: Head: Yes normal to inspection Neck: Carotids: no bruits Chest: Chest palpation & inspection: normal inspection of the chest Resp: Effort & Inspection: normal respiratory effort and able to speak in complete sentences Auscultation: clear to auscultation bilaterally Cardio: Rate: regular rate Heart sounds: S1 normal heart sound present and S2 normal heart sound present GI: Inspection: Yes normal to inspection Skin: Other: Bilateral groin small hematoma a left-sided some staining on dressing overall stable. General skin exam: no rashes or lesions noted Wounds: no wounds Neuro: General: oriented to person, oriented to place, oriented to time and CN's II-XI intact bilaterally Extrem: General: Yes normal to inspection, Yes full ROM and Yes no clubbing, cyanosis or edema Psych: Appearance: grossly normal and well kempt Speech and movement: Normal speech and movement present Affect: normal affect Progress Note: A&P Assessment and plan (1) Peripheral vascular disease: Status: Acute Assessment and Plan: Patient is status post femoral to femoral bypass. Appears to be doing extremely well. For transfer up to floor. EMMA Lara in out of bed to chair. Stable for transfer to [facility] floor. Thank you to the shear scrapman for their assistance in his care. Time Spent With Patient Time: Total time managing care of this patient today ____ minutes. Procedures Date of Service Date of Service: 11/04/22 Quality Stroke Does the patient have a stroke diagnosis?: No VTE Prior VTE?: No VTE Risk Level:: Surgical - moderate VTE Device Contraindication: N/A - Device Ordered VTE Drug Contraindication: N/A - Med Ordered
[2022-11-04] MEDS: Heparin Sodium,Porcine 5,000 UNIT/ML VIAL 5000 UNIT SUBCUT ×2 (10:24→17:01)
--- NOTE | 2022-11-04 13:03 | HO.POSTANES ---
Post Anesthesia Evaluation Post Anesthesia Evaluation Vital Signs: Vital Signs Temp Pulse Resp BP Pulse Ox O2 Del Method 11/04/22 10:00 79 12 131/81 96 Room Air 11/04/22 09:00 66 12 133/71 96 Room Air 11/04/22 08:00 97.5 F 62 13 123/69 96 Room Air 11/04/22 07:00 62 14 107/65 97 Room Air 11/04/22 12:00 97.6 F 69 13 127/68 96 Room Air 11/04/22 09:00 63 12 133/71 97 Room Air 11/04/22 01:54 62 15 123/73 96 Room Air 11/04/22 06:00 64 14 132/63 97 Room Air 11/04/22 05:00 61 12 115/65 96 Room Air 11/04/22 04:00 97.6 F 68 12 119/66 96 Room Air 11/04/22 03:00 64 12 134/70 96 Room Air Anesthesia: General Endotracheal-GETA Mental Status: Awake Pain Control: Satisfactory Nausea/Vomiting: None Hydration: Adequate Anesthesia-Related Issues: No Anes. Related Issues
--- NOTE | 2022-11-04 13:22 | HO.PM.IMPN ---
Subjective Subjective Date of Service: 11/04/22 Review of Systems Follow up consultation right common femoral endarterectomy, femoral to femoral bypass, left femoral endarterectomy Denies pain, resting in bed Physical Exam Vital Signs: Vital Signs: Last Vital Signs Temp 97.6 F 11/04/22 12:00 Pulse 69 11/04/22 12:00 Resp 13 11/04/22 12:00 BP 127/68 11/04/22 12:00 Pulse Ox 96 11/04/22 12:00 O2 Del Method Room Air 11/04/22 12:00 O2 Flow Rate 6 11/03/22 10:51 BMI result Body Mass Index 22.1 Appearing in no acute distress lung sounds are clear to auscultation heart regular rate rhythm, clear S1, S2 positive bowel sounds, abdomen is soft, nontender neuro patient is alert x3, no focal deficits Objective Data Active Medications Acetaminophen (Acetaminophen 325 Mg Tablet) 650 mg PO Q6H PRN PRN Reason: Pain, Mild (Pain Scale 1-3) Amlodipine Besylate (Amlodipine Besylate 10 Mg Tablet) 10 mg PO DAILY@0600 [facility]; Protocol Last Admin: 11/04/22 05:51 Dose: 10 mg Documented By: TAMMY Aspirin (Aspirin Enteric Coated 81 Mg Tablet.) 81 mg PO DAILY@0600 [facility] Last Admin: 11/04/22 05:51 Dose: 81 mg Documented By: TAMMY Atorvastatin Calcium (Atorvastatin Calcium 80 Mg Tablet) 80 mg PO DAILY@0600 [facility] Last Admin: 11/04/22 05:52 Dose: 80 mg Documented By: TAMMY Clonidine HCl (Clonidine Hcl 0.1 Mg Tablet) 0.1 mg PO BID@0600,1800 [facility]; Protocol Last Admin: 11/04/22 05:51 Dose: 0.1 mg Documented By: TAMMY Cyanocobalamin (Cyanocobalamin (Vitamin B-12) 500 Mcg Tablet) 500 mcg PO DAILY@1800 [facility] Last Admin: 11/03/22 16:41 Dose: 500 mcg Documented By: STEWART Finasteride (Finasteride 5 Mg Tablet) 5 mg PO DAILY@1800 [facility] Last Admin: 11/03/22 16:40 Dose: 5 mg Documented By: STEWART Heparin Sodium (Porcine) (Heparin Sodium,Porcine 5,000 Unit/Ml Vial) 5,000 unit SUBCUT Q8H [facility] Last Admin: 11/04/22 10:24 Dose: 5,000 unit Documented By: ANAYA Hydrochlorothiazide (Hydrochlorothiazide 50 Mg Tablet) 50 mg PO DAILY@0600 [facility]; Protocol Last Admin: 11/04/22 05:51 Dose: 50 mg Documented By: TAMMY Sodium Chloride (Ns) 1,000 mls @ 40 mls/hr IVCONT .Q24H [facility] Last Infusion: 11/04/22 06:39 Dose: 40 mls/hr Documented By: TAMMY Morphine Sulfate (Morphine Sulfate 2 Mg/Ml Cartridge) 2 mg IVPUSH Q4H PRN; Protocol PRN Reason: Pain, Severe (Pain Scale 7-10) Oxycodone HCl (Oxycodone Hcl Immed Release 5 Mg Tablet) 5 mg PO Q4H PRN PRN Reason: Pain, Moderate (Pain Scale 4-6 Last Admin: 11/04/22 03:32 Dose: 5 mg Documented By: TAMMY Sodium Chloride (0.9 % Sodium Chloride Flush 3 Ml Syringe) 3 ml IVFLUSH QSHIFT [facility] Last Admin: 11/04/22 07:54 Dose: Not Given Documented By: ANAYA Non-Admin Reason: IV Running Labs 11/04/22 04:24 11/04/22 04:24 Labs: Laboratory Results - last 24 hr 11/04/22 11/04/22 04:24 04:24 MCV 87.8 MCH 30.7 MCHC 35.0 RDW 13.3 Plt Count 212 MPV 10.1 Immature Gran % (Auto) 0.4 Neut % (Auto) 82.9 H Lymph % (Auto) 9.3 L [place] % (Auto) 7.2 Eos % (Auto) 0.1 Baso % (Auto) 0.1 Lymph # (Auto) 1.5 [place] # (Auto) 1.1 Eos # (Auto) 0.0 Baso # (Auto) 0.0 Abs Immat Gran (auto) 0.06 H Absolute Neuts (auto) 13.1 H Absolute Nucleated RBC 0.000 Nucleated RBC % (auto) 0.0 Anion Gap 13 Estim Creat Clear Calc 69.5 Estimated GFR > 60 Random Glucose 116 H Calcium 8.3 L D Assessment and Plan (1) Iliac artery occlusion, right: Status: Acute Plan 67 year old man admitted by vascular surgery (postoperatively in the ICU) and is s/p right and left femoral endarterectomy and fem-fem bypass Endarterectomy Management as per Vascular surgery Hypertension continue amlodipine, clonidine, hydrochlorothiazide sign BPH Continue finasteride COPD No exacerbation Continue home medications PVD/PAD Continue aspirin and statin DVT prophylaxis with heparin Attending Dr. Fabian Time Spent With Patient Time: Total time managing care of this patient today ____ minutes. Quality Stroke Does the patient have a stroke diagnosis?: No VTE Prior VTE?: No VTE Risk Level:: Surgical - moderate VTE Device Contraindication: N/A - Device Ordered VTE Drug Contraindication: N/A - Med Ordered
--- NOTE | 2022-11-04 13:32 | MHC.CM.PN ---
Met w/pt to discuss d/c planning needs: pt resides w/spouse: independent w/all care needs: no services or DME used. Spouse to transport: IMM in chart, HCP copy requested.
[2022-11-04] MEDS: 0.9 % Sodium Chloride 1,000 ML 40 ML IVCONT (16:26)
[2022-11-04] MEDS: Cyanocobalamin (Vitamin B-12) 500 MCG TABLET PO (17:02)
[2022-11-04] MEDS: Finasteride 5 MG TABLET PO (17:02)
--- NOTE | 2022-11-04 18:32 | PC.NURSE ---
Patient transfered from ICU s/p surgery. See Surgery Notes. Patient is A&Ox3, initially stated he had no pain. Later on, he stated he wanted Pain medication. Med given per order for incision pain, + effect. Lungs clear, no chest pain, +BS in all 4Q, no c/o N/V. +PP via Dopplar Bilateral. Dressings intact bilateral, small blood noted, traced by previous unit. Oriented to staff and call system. Order for OOB as tolerated to chair at this time. Patient states understanding of plan of care.
[2022-11-04] MEDS: Acetaminophen 325 MG TABLET 650 MG PO (21:23)
[2022-11-05] MEDS: oxyCODONE HCl Immed Release 5 MG TABLET PO ×4 (01:34→21:06)
[2022-11-05 04:00] VITALS: BP 153/73; PULSE 66; RESP 16; TEMP 36.4; O2SAT 95
[2022-11-05 06:08] LABS: MANUAL DIFF FLAG NO
[2022-11-05 06:17] LABS: Basophils Percent Auto 0.3 % (0-2); Eosinophils Absolute Auto 0.2 X10*3/uL (0.0-0.4); Eosinophils Percent Auto 1.7 % (0-4); Hematocrit 30.8 % (42.0-52.0); Hemoglobin 10.3 g/dl (14.0-18.0); Imm Gran Abs Auto 0.04 X10*3/uL (0.00-0.03); Imm Gran Pct Auto 0.4 % (0.0-0.4); Lymphocytes Absolute Auto 2.5 X10*3/uL (1.2-4.9); Mean Corpuscular HGB Conc 33.4 g/dl (31.0-36.0); Mean Corpuscular Hemoglobin 29.9 pg (27.0-33.0); Mean Corpuscular Volume 89.5 fL (80.0-98.0); Mean Platelet Volume 10.5 fL (9.4-12.4); Monocytes Percent Auto 10.7 % (2-11); Neutrophils Absolute Auto 5.5 x10*3/uL (2.0-8.3); Neutrophils Percent Auto 59.9 % (45-73); Platelet Count 217 X10*3/uL (160-400); Red Blood Count 3.44 X10*6/uL (4.60-5.80); Red Cell Distribution Width 13.7 % (11.0-16.0); White Blood Count 9.2 X10*3/uL (4.8-10.8)
[2022-11-05] MEDS: Atorvastatin Calcium 80 MG TABLET PO (06:17)
[2022-11-05] MEDS: hydroCHLOROthiazide 50 MG TABLET PO (06:17)
[2022-11-05] MEDS: Aspirin Enteric Coated 81 MG TABLET.DR PO (06:17)
[2022-11-05] MEDS: cloNIDine HCL 0.1 MG TABLET PO ×2 (06:17→16:57)
[2022-11-05] MEDS: amLODIPine Besylate 10 MG TABLET PO (06:17)
[2022-11-05 07:34] VITALS: BP 129/73; PULSE 69; RESP 18; TEMP 36.7; O2SAT 93
--- NOTE | 2022-11-05 08:05 | HO.PM.IMPN ---
Subjective Subjective Date of Service: 11/05/22 Interval History: pt seen and examined at bedside. no acute complaint at this time no chest pain, abdominal pain, no constipation. no nausea, or vomiting. no urinary symptoms Review of Systems Review of Systems: Yes all other systems are reviewed and are negative Physical Exam Vital Signs: Vital Signs: Last Vital Signs Temp 98.1 F 11/05/22 07:34 Pulse 69 11/05/22 07:34 Resp 18 11/05/22 07:34 BP 129/73 11/05/22 07:34 Pulse Ox 93 11/05/22 07:34 O2 Del Method Room Air 11/05/22 07:34 O2 Flow Rate 6 11/03/22 10:51 BMI result Body Mass Index 22.1 Const: General: cooperative, comfortable and no acute distress Resp: Effort & Inspection: normal respiratory effort Auscultation: clear to auscultation bilaterally GI: Inspection: Yes normal to inspection Palpation (GI): Soft to palpation Auscultation: normal bowel sounds Objective Data Active Medications Acetaminophen (Acetaminophen 325 Mg Tablet) 650 mg PO Q6H PRN PRN Reason: Pain, Mild (Pain Scale 1-3) Last Admin: 11/04/22 21:23 Dose: 650 mg Documented By: CHAO Amlodipine Besylate (Amlodipine Besylate 10 Mg Tablet) 10 mg PO DAILY@0600 [facility]; Protocol Last Admin: 11/05/22 06:17 Dose: 10 mg Documented By: CHAO Aspirin (Aspirin Enteric Coated 81 Mg Tablet.) 81 mg PO DAILY@0600 [facility] Last Admin: 11/05/22 06:17 Dose: 81 mg Documented By: CHAO Atorvastatin Calcium (Atorvastatin Calcium 80 Mg Tablet) 80 mg PO DAILY@0600 [facility] Last Admin: 11/05/22 06:17 Dose: 80 mg Documented By: CHAO Clonidine HCl (Clonidine Hcl 0.1 Mg Tablet) 0.1 mg PO BID@0600,1800 [facility]; Protocol Last Admin: 11/05/22 06:17 Dose: 0.1 mg Documented By: CHAO Cyanocobalamin (Cyanocobalamin (Vitamin B-12) 500 Mcg Tablet) 500 mcg PO DAILY@1800 [facility] Last Admin: 11/04/22 17:02 Dose: 500 mcg Documented By: WOJCIECH Finasteride (Finasteride 5 Mg Tablet) 5 mg PO DAILY@1800 [facility] Last Admin: 11/04/22 17:02 Dose: 5 mg Documented By: WOJCIECH Heparin Sodium (Porcine) (Heparin Sodium,Porcine 5,000 Unit/Ml Vial) 5,000 unit SUBCUT Q8H [facility] Last Admin: 11/05/22 00:46 Dose: Not Given Documented By: CHAO Non-Admin Reason: Patient Refused Hydrochlorothiazide (Hydrochlorothiazide 50 Mg Tablet) 50 mg PO DAILY@0600 [facility]; Protocol Last Admin: 11/05/22 06:17 Dose: 50 mg Documented By: CHAO Sodium Chloride (Ns) 1,000 mls @ 40 mls/hr IVCONT .Q24H [facility] Last Admin: 11/04/22 16:26 Dose: 40 mls/hr Documented By: WOJCIECH Morphine Sulfate (Morphine Sulfate 2 Mg/Ml Cartridge) 2 mg IVPUSH Q4H PRN; Protocol PRN Reason: Pain, Severe (Pain Scale 7-10) Oxycodone HCl (Oxycodone Hcl Immed Release 5 Mg Tablet) 5 mg PO Q4H PRN PRN Reason: Pain, Moderate (Pain Scale 4-6 Last Admin: 11/05/22 07:20 Dose: 5 mg Documented By: WOJCIECH Sodium Chloride (0.9 % Sodium Chloride Flush 3 Ml Syringe) 3 ml IVFLUSH QSHIFT [facility] Last Admin: 11/05/22 06:24 Dose: Not Given Documented By: MARTHA Non-Admin Reason: IV Running Labs 11/05/22 05:14 11/04/22 04:24 Labs: Laboratory Results - last 24 hr 11/05/22 05:14 MCV 89.5 MCH 29.9 MCHC 33.4 RDW 13.7 Plt Count 217 MPV 10.5 Immature Gran % (Auto) 0.4 Neut % (Auto) 59.9 Lymph % (Auto) 27.0 [place] % (Auto) 10.7 Eos % (Auto) 1.7 Baso % (Auto) 0.3 Lymph # (Auto) 2.5 [place] # (Auto) 1.0 Eos # (Auto) 0.2 Baso # (Auto) 0.0 Abs Immat Gran (auto) 0.04 H Absolute Neuts (auto) 5.5 Absolute Nucleated RBC 0.000 Nucleated RBC % (auto) 0.0 Assessment and Plan (1) Status post femorofemoral bypass surgery: Status: Acute (2) Renal artery stenosis: Status: Acute (3) Iliac artery occlusion, right: Status: Acute (4) Peripheral vascular disease: Status: Acute Plan Postop day 3 status post fem-fem bypass 67 year old man admitted by vascular surgery (postoperatively in the ICU) and is s/p right and left femoral endarterectomy and fem-fem bypass # fem-fem bypass/Endarterectomy - Management as per Vascular surgery - post-op day 3 #Hypertension - stable - continue amlodipine, clonidine, hydrochlorothiazide sign # BPH - Continue finasteride # COPD - No exacerbation - Continue home medications # PVD/PAD - Continue aspirin and statin DVT prophylaxis with heparin Dsicharge planing per vascular surgery Time Spent With Patient Time: Total time managing care of this patient today ____ minutes. Quality Stroke Does the patient have a stroke diagnosis?: No VTE Prior VTE?: No VTE Risk Level:: Surgical - moderate VTE Device Contraindication: N/A - Device Ordered VTE Drug Contraindication: N/A - Med Ordered
[2022-11-05] MEDS: Heparin Sodium,Porcine 5,000 UNIT/ML VIAL 5000 UNIT SUBCUT ×2 (10:11→16:58)
--- NOTE | 2022-11-05 10:39 | HO.VASCPN ---
Subjective Subjective Date of Service: 11/05/22 Patient reports: no new complaints and feels better Interval history: Patient seen and examined. Postop day 2 status post fem-fem bypass. Up to regular floor tolerating regular diet. Reports he is passing flatus but no bowel movement. Has been out of bed to a commode reports no difficulty with that. Physical Exam Vital Signs: Vital Signs: Last Vital Signs Temp 98.1 F 11/05/22 07:34 Pulse 69 11/05/22 07:34 Resp 18 11/05/22 07:34 BP 129/73 11/05/22 07:34 Pulse Ox 93 11/05/22 07:34 O2 Del Method Room Air 11/05/22 07:34 O2 Flow Rate 6 11/03/22 10:51 BMI result Body Mass Index 22.1 Const: General: cooperative, healthy appearing and no acute distress Orientation/consciousness: oriented to person, oriented to place and oriented to time HEENT: Head: Yes normal to inspection Neck: Carotids: no bruits Chest: Chest palpation & inspection: normal inspection of the chest Resp: Effort & Inspection: normal respiratory effort and able to speak in complete sentences Auscultation: clear to auscultation bilaterally Cardio: Rate: regular rate Heart sounds: S1 normal heart sound present and S2 normal heart sound present GI: Inspection: Yes normal to inspection Skin: Other: Dressing changes bilateral groins - healing well General skin exam: no rashes or lesions noted Wounds: no wounds Neuro: General: oriented to person, oriented to place, oriented to time and CN's II-XI intact bilaterally Extrem: General: Yes normal to inspection, Yes full ROM and Yes no clubbing, cyanosis or edema Psych: Appearance: grossly normal and well kempt Speech and movement: Normal speech and movement present Affect: normal affect Progress Note: A&P Assessment and plan (1) Peripheral vascular disease: Status: Acute Assessment and Plan: In short patient is doing well status post fem-fem bypass. Continues to have mild postop ileus. Have started him on MiraLax and Colace. In addition ordered physical therapy as he reports he is unsteady on his feet. Will continue to monitor his status. If all goes well would anticipate discharge as early as tomorrow. Time Spent With Patient Time: Total time managing care of this patient today ____ minutes. Procedures Date of Service Date of Service: 11/05/22 Quality Stroke Does the patient have a stroke diagnosis?: No VTE Prior VTE?: No VTE Risk Level:: Surgical - moderate VTE Device Contraindication: N/A - Device Ordered VTE Drug Contraindication: N/A - Med Ordered
[2022-11-05] MEDS: polyethylene glycoL 3350 17 GM POWD.PACK PO (11:33)
[2022-11-05] MEDS: Docusate Sodium 100 MG CAPSULE PO ×2 (11:33→21:06)
[2022-11-05 15:25] VITALS: BP 160/72; PULSE 81; RESP 15; TEMP 37; O2SAT 91
[2022-11-05] MEDS: 0.9 % Sodium Chloride Flush 3 ML SYRINGE IVFLUSH ×2 (15:45→21:07)
[2022-11-05] MEDS: Albuterol Sulfate 90 MCG 8 GM INHALER 2 PUFF INHALE (16:21)
[2022-11-05] MEDS: Cyanocobalamin (Vitamin B-12) 500 MCG TABLET PO (16:57)
[2022-11-05] MEDS: Finasteride 5 MG TABLET PO (16:58)
[2022-11-05] MEDS: Metoprolol Succinate ER 25 MG TAB.ER.24H PO (16:58)
[2022-11-05 19:22] VITALS: BP 146/77; PULSE 81; RESP 16; TEMP 36.6; O2SAT 91
[2022-11-06] MEDS: oxyCODONE HCl Immed Release 5 MG TABLET PO (02:18)
[2022-11-06 04:00] VITALS: BP 149/78; PULSE 79; RESP 16; TEMP 36.6; O2SAT 91
[2022-11-06] MEDS: hydroCHLOROthiazide 50 MG TABLET PO (06:00)
[2022-11-06] MEDS: amLODIPine Besylate 10 MG TABLET PO (06:00)
[2022-11-06] MEDS: Aspirin Enteric Coated 81 MG TABLET.DR PO (06:00)
[2022-11-06] MEDS: cloNIDine HCL 0.1 MG TABLET PO (06:00)
[2022-11-06] MEDS: Atorvastatin Calcium 80 MG TABLET PO (06:00)
[2022-11-06 07:05] VITALS: BP 138/64; PULSE 76; RESP 16; TEMP 36.1; O2SAT 94
[2022-11-06] MEDS: Acetaminophen 325 MG TABLET 650 MG PO (07:13)
[2022-11-06] MEDS: Docusate Sodium 100 MG CAPSULE PO (07:13)
[2022-11-06] MEDS: 0.9 % Sodium Chloride Flush 3 ML SYRINGE IVFLUSH (07:14)
--- NOTE | 2022-11-06 12:55 | PM.DS ---
DS: Providers Provider Date of Service: 11/06/22 Date of admission: 11/03/22 10:52 Primary care physician: Michael Chery MD Consults: 11/05/22 15:43 Consult to Hospitalist Routine Comment: Consulting Provider: Hospitalist Reason For Exam: Shortness of breath DS: Diagnosis Discharge Diagnosis (1) Status post femorofemoral bypass surgery: Status: Acute (2) Renal artery stenosis: Status: Acute (3) Iliac artery occlusion, right: Status: Acute (4) Peripheral vascular disease: Status: Acute DS: Summary Hospital Course Hospital Course: Patient underwent femoral to femoral bypass. Postoperatively was observed in the ICU for a day. Patient was slow to be ambulatory. Postop day 3 he had get an his strength. He was able to ambulate on his own. He is passing flatus but has not had bowel movement as of yet. He was anxious to be discharged. Condition upon discharge stable discharge diet regular Time spent discussing smoking cessation with patient: more than 10 minutes Status at Discharge Functional status at discharge: independent ambulation Time Spent with Patient Time attestation: Total time managing care of this patient today ____ minutes. Discharge coordination time: Greater than 30 minutes Quality: Safe Use of Opioids Does Pt have an Active Cancer Diagnosis on the Problem List?: No Quality: Stroke Does the patient have a stroke diagnosis?: No Physical Exam Vital Signs: Vital Signs: Last Vital Signs Temp 97 F 11/06/22 07:05 Pulse 76 11/06/22 07:05 Resp 16 11/06/22 07:05 BP 138/64 11/06/22 07:05 Pulse Ox 94 11/06/22 07:05 O2 Del Method Room Air 11/06/22 07:05 O2 Flow Rate 6 11/03/22 10:51 BMI result Body Mass Index 22.1 Const: General: cooperative, healthy appearing and no acute distress Orientation/consciousness: oriented to person, oriented to place and oriented to time HEENT: Head: Yes normal to inspection Neck: Carotids: no bruits Chest: Chest palpation & inspection: normal inspection of the chest Resp: Effort & Inspection: normal respiratory effort and able to speak in complete sentences Auscultation: clear to auscultation bilaterally Cardio: Rate: regular rate Heart sounds: S1 normal heart sound present and S2 normal heart sound present GI: Inspection: Yes normal to inspection Skin: Other: Bilateral groins healing well General skin exam: no rashes or lesions noted Wounds: no wounds Neuro: General: oriented to person, oriented to place, oriented to time and CN's II-XI intact bilaterally Extrem: General: Yes normal to inspection, Yes full ROM and Yes no clubbing, cyanosis or edema Psych: Appearance: grossly normal and well kempt Speech and movement: Normal speech and movement present Affect: normal affect DS: Data Data Completed and Pending Completed studies during hospitalization [Text1]: Pending at discharge 11/03/22 09:56 Surgical [PTH] Routine Discharge Plan Discharge Anticipated Discharge Date/Time: 11/06/22 12:49 Patient Disposition: Home, Self-Care Discharge Diagnosis: Status post femoral to femoral bypass Referrals: Po,Michael Garcia MD [Primary Care Provider] - 1 Week Discharge Medications: New oxycodone-acetaminophen [Percocet] 5-325 mg tablet 1 tab PO Q6H PRN (Reason: pain) Qty: 14 0RF Rx Instructions: Partial Fill upon patient request. Continued atorvastatin 80 mg tablet 80 mg PO .@0600 metoprolol succinate 25 mg tablet extended release 24 hr 25 mg PO .@1800 finasteride 5 mg tablet 5 mg PO .@1800 clonidine HCl 0.1 mg tablet 0.1 mg PO .@0600+1800 hydrochlorothiazide 50 mg tablet 50 mg PO .@0600 amlodipine 10 mg tablet 10 mg PO .@0600 aspirin [Adult Aspirin Regimen] 81 mg tablet,delayed release (DR/EC) 81 mg PO .@0600 budesonide-formoterol [Symbicort] 160-4.5 mcg/actuation HFA aerosol inhaler 2 puff inhalation Q12H Qty: 10.2 5RF cyanocobalamin (vitamin B-12) 1,000 mcg capsule 500 mcg PO .@1800 Discharge Orders: Discharge Order (Routine); Ordered 11/06/22 Ordered By: Regulo Veras Diet: Advance to usual diet Activity on Discharge: As tolerated Stand Alone Forms: Patient Portal Discharge page Activity Restrictions/Additional Instructions: Skin aisha were used and you may shower as early as tomorrow. Take it easy today and you may ambulate around the house. You may climb a flight of stairs as tolerated Do not lift anything heavier than a gallon of milk for [address] Veras in follow-up in approximately 2 weeks time. You should already have an appointment if not please call my office at [phone] Please use MiraLax daily until you have normal bowel movement. Please use Tylenol for pain and if needed prescription Percocet If you notice excessive bleeding from the groin please immediately call my office or return to the emergency room. Care Plan Goals: Status post bypass Health Concerns: Peripheral vascular disease Plan of Treatment: Surveillance follow-up Assessment: Status post femoral to femoral bypass
--- NOTE | 2022-11-06 13:26 | MHC.CM.PN ---
IMM 11/04/22 Patient discharged to home self care. He has arranged for transportation home.
== END 2022-11-06 14:01 | disposition home or self-care (01) | DRG 253 ==
LOC: HO.SSSA 11:19 → HO.ICU 11:35 → HO.IMC 11-04 12:45 → HO.S3 11-04 13:08
PROVIDERS: Nurse Practitioner; Admitting Provider Surgery Vascular Surgery; PCP Internal Medicine; Visit Provider Surgery Vascular Surgery
PROC: 04CL0ZZ Extirpation of Matter from Left Femoral Artery, Open Approach (ICD-10-PCS; principal; 2022-11-03 07:30)
DX: I70.213 Atherosclerosis of native arteries of extremities with intermittent claudication, bilateral legs (principal); K56.7 Ileus, unspecified; I10 Essential (primary) hypertension; J44.9 Chronic obstructive pulmonary disease, unspecified; I25.10 Atherosclerotic heart disease of native coronary artery without angina pectoris; E78.00 Pure hypercholesterolemia, unspecified; F17.210 Nicotine dependence, cigarettes, uncomplicated; Z20.822 Contact with and (suspected) exposure to COVID-19; Z85.47 Personal history of malignant neoplasm of testis; Z71.6 Tobacco abuse counseling; Z88.0 Allergy status to penicillin; Z79.82 Long term (current) use of aspirin; Z79.899 Other long term (current) drug therapy
CPT/HCPCS: 36415; 80048; 85025; 85027; 85610; 85730; 86850; 86900; 86901; 87635; 88304; 88311; 97116; 97161; C1758; C1768; J0690; J1100; J1643; J2250; J2370; J2405; J2795; J3010

== ENCOUNTER → 2022-11-20 12:50 | Outpatient (BNVA) | payer MEDICARE, SELFPAY | PROVIDERS: PCP Internal Medicine; Visit Provider Surgery Vascular Surgery | DX: I73.9 Peripheral vascular disease, unspecified (principal) | CPT/HCPCS: 99212 ==

== ENCOUNTER → 2022-11-28 13:25 | Outpatient (BNVA) | payer MEDICARE, SELFPAY | PROVIDERS: PCP Internal Medicine; Visit Provider Urology | DX: C61 Malignant neoplasm of prostate (principal) | CPT/HCPCS: 99212 ==

== ENCOUNTER → 2023-01-21 08:54 | Outpatient (BNVA) | payer MEDICARE, SELFPAY | PROVIDERS: PCP Internal Medicine; Visit Provider Nurse Practitioner Family ==

== ENCOUNTER 2023-01-29 09:46 | Outpatient (REF) | payer MEDICARE, SELFPAY ==
--- NOTE | ~2023-01-29 | US_ITS ---
ULTRASOUND AORTA Clinical indication: Abdominal aortic aneurysm and iliac artery occlusion Technique: Multiple gomez-scale and color Doppler images of the abdominal aorta obtained. Comparison: CTA from 04/04/2022/ FINDINGS: The proximal segment of the abdominal aorta measures 2.6 x 2.3 cm. The mid abdominal aorta measures 2.1 x 2.0 cm. The distal abdominal aorta measures 2.5 x 3.1 cm in axial dimensions. Diffuse atherosclerotic plaque is seen within the abdominal aorta. Patent flow is seen in the color-flow Doppler. Peak systolic velocity measures 102 cm/s with normal arterial waveforms. The right common iliac artery is chronically occluded. The left common iliac artery measures 0.7 cm. Patent flow seen on color flow Doppler. Peak systolic velocity measures 86.7 cm/s US/US abdominal aortic aneurysm IMPRESSION: Fusiform and renal abdominal aortic aneurysm.. Chronic occlusion of the right common iliac artery. Left common iliac artery is patent EXAMINATION: Noninvasive assessment of the bilateral lower extremities with ARTERIAL DUPLEX and ANKLE BRACHIAL INDICES (ABIs). CLINICAL INFORMATION: Peripheral vascular disease TECHNIQUE: Duplex Doppler techniques with waveform analysis and measurement of velocities in the bilateral common femoral, profunda femoris, superficial femoral, popliteal and tibial arteries were performed. Additionally, ankle pulse volume recordings, ankle pressure measurements and ankle brachial indices were obtained of the lower extremity arterial system bilaterally. The study was performed only at rest. COMPARISON: CTA from 03/31/2022 FINDINGS: DIRECT DUPLEX DOPPLER FINDINGS: RIGHT LEG: Common femoral artery: 151 cm/s, phasicity: Monophasic Profunda femoris artery: 81.2 cm/s, phasicity: Monophasic Superficial femoral artery (proximal): 115 cm/s, phasicity: Biphasic, mild calcified plaque Superficial femoral artery (mid): 67.3 cm/s, phasicity: Biphasic, mild calcified plaque Superficial femoral artery (distal): 91.9 cm/s, phasicity: Triphasic. Moderate calcified plaque Popliteal artery: 56.0 cm/s, phasicity: Biphasic Posterior tibial artery: 27.7 cm/s, phasicity: Monophasic Peroneal artery: 34.4 cm/s, phasicity: Biphasic LEFT LEG: Common femoral artery: 74.6 cm/s, phasicity: Biphasic Profunda femoris artery: 93 cm/s, phasicity: Monophasic Superficial femoral artery (proximal): 64.5 cm/s, phasicity: Biphasic, mild calcified plaque Superficial femoral artery (mid): 60.3 cm/s, phasicity: Biphasic, mild calcified plaque Superficial femoral artery (distal): 46.2 cm/s, phasicity: Biphasic, mild calcified plaque Popliteal artery: 65.9 cm/s, phasicity: Biphasic Posterior tibial artery: 24.8 cm/s, phasicity: Biphasic Peroneal artery: 31.0 cm/s, phasicity: Biphasic ANKLE-BRACHIAL INDEX: Right: 0.89? Left: 0.88 ANKLE PRESSURES: Right: PT 127, DP 138 Left: PT?136, DP?118 ANKLE PVR WAVEFORMS: Right: Abnormal Left: Abnormal IMPRESSION: Right leg: Minimally decreased ankle-brachial index. Scattered atherosclerotic plaque with patent arterial flow within the evaluated vessels as described above Left leg: Minimally decreased ankle-brachial index. Scattered atherosclerotic plaque with patent arterial flow within the evaluated vessels as described above LAUREANO Reference: - >1.4 = calcified vessels - 0.9 - 1.4 = normal - no significant arterial disease - 0.7 - 0.89 = mild peripheral arterial disease - 0.51 - 0.69 = moderate peripheral arterial disease - ? 0.50 = severe peripheral arterial disease - < .30 = critical arterial disease
== END 2023-01-29 09:47 | disposition home or self-care (01) ==
LOC: HO.US 09:46
PROVIDERS: PCP Internal Medicine; Visit Provider Surgery Vascular Surgery
DX: I73.9 Peripheral vascular disease, unspecified (principal)
CPT/HCPCS: 76706; 93923; 93925

== ENCOUNTER 2023-02-03 13:52 | Outpatient (AMB) | payer MEDICARE, SELFPAY ==
[2023-02-03 13:53] VITALS: BP 114/68; BMI 21.9
--- NOTE | 2023-02-03 13:53 | MHC.OFFVIS ---
Intake Vital Signs 02/03/23 13:53 Height 5 ft 9 in Weight 148 lb BMI 21.9 BP 114/68 Blood Pressure Location Lt brachial Position Sitting Intake Visit Reasons: 3 months f/u s/p arterial Us 01/29/23 Intake Note: 3 mo follow up s/p Arterial US 01/29/23 w/ hx of fem-fem bypass 11/03/22. Pt states that legs are still sore, states he can do stairs better and is back to same activity amount as before Accompanied by: Self / Same As Patient Allergies Penicillins [PCN] Allergy (Intermediate, Verified 02/03/23 14:00) Hives HPI 3 months f/u s/p arterial Us 01/29/23 HPI Details Pleasant 67-year-old gentleman presents for surveillance follow-up status post fem-fem bypass. Appears to be doing relatively well. Reports he can walk several blocks without any difficulty. In general no complaints. He now presents for follow-up with surveillance ultrasound. He is being maintained on aspirin and high-dose statin PFSH Medical History COPD (chronic obstructive pulmonary disease) Coronary artery disease COVID-19 vaccination refused History of testicular cancer Hypercholesterolemia Hypertension Peripheral arterial disease Tobacco abuse Tubular adenoma Surgical History H/O heart bypass surgery History of testicular surgery History of tonsillectomy Hx of colonoscopy Hx of prostate biopsy Family History Father No problems noted. Mother No problems noted. Maternal Grandmother Myocardial infarction Brother In good health Sister In good health Son In good health Son In good health Daughter In good health Sister Diabetes Social History Household Members: Spouse Housing: House Are you a primary career services assistant to a significant other at home: No Do you presently have visiting nurse or other home services: No Alcohol intake: former Patient Tobacco Use Status: Current everyday Tobacco user Tobacco use type: Cigarette Cigarette Packs Per Day: 0.5 Cigarettes Per Day: 8 Years Smoked: 53 years e-Cigarette/Vaping Use: Currently Using Second Hand Smoke Exposure: Yes service: No Current occupational status: employed Current occupational exposures/hazards: No Cognitive needs: No Hearing needs: No Vision needs: Yes Review of Systems Const All systems reviewed & are unremarkable except as noted in HPI and below Reports no additional complaints ENT Reports Normal hearing present Card Denies chest pain, Denies chest pain at rest, Denies chest pain with activity and Denies pedal edema Resp Denies cough GI Denies abdominal pain Musc Denies abnormal gait, Denies muscle cramps and Denies radiating pain into limb Skin/Breast Denies skin ulcer and Denies wounds Neuro Reports Normal hearing present and Denies abnormal gait Psych Reports no additional complaints Physical Exam Vital Signs: Last Vital Signs BP 114/68 02/03/23 13:53 BMI result Body Mass Index 21.9 Const General: cooperative, healthy appearing and comfortable Orientation/consciousness: oriented to person, oriented to place and oriented to time HEENT Head: Yes normal to inspection Neck Neck: Yes normal visual inspection Carotids: no bruits Chest Chest palpation & inspection: normal inspection of the chest Resp Effort & Inspection: normal respiratory effort and able to speak in complete sentences Auscultation: clear to auscultation bilaterally, no crackles, no rales, no rhonchi and no wheezes Cardio Other: Palpable bilateral DP pulses Rate: regular rate Rhythm: regular rhythm Heart sounds: S1 normal heart sound present and S2 normal heart sound present Bruits: no carotid bruits Peripheral pulses: Peripheral pulses 2+ throughout GI Inspection: Yes normal to inspection Skin Wounds: no wounds Hair: normal Neuro General: oriented to person, oriented to place and oriented to time Cranial nerves: Yes CN's II-XII intact bilaterally and Yes Normal hearing present Cognition (Neuro): normal cognition Motor exam (neuro): 5/5 motor strength present throughout Extrem Other: venous exam: No significant superficial varicosities or spider telangiectasias, minimal edema General: No clubbing, No cyanosis and No edema Psych Appearance: grossly normal Mental Status: mental status grossly normal Speech and movement: Normal speech and movement present Results Reviewed Results Reviewed: Surveillance ultrasound dated 01/29/2023 demonstrates LAUREANO on the right of 0.89 and on the left of 0.88. Written report and images were reviewed. Assessment & Plan Assessment & Plan (1) Peripheral vascular disease: Comment: 03/24/2018 - diagnostic angiogram 11/03/2022 - femoral to femoral bypass Code(s): I73.9 - Peripheral vascular disease, unspecified Plan: In short patient has stable claudication. I did review the pathophysiology of peripheral vascular disease with the patient. In addition we did discuss routine conservative measures including a healthy diet and the importance of exercise and ambulation. We did discuss risk factor modification. The patient will continue to to follow-up with surveillance follow-up in approximately 6 months. Thank you for allowing us to participate in this patient's care. If there are any questions or concerns please do not hesitate to contact us. Orders: Orders US arterial duplex LE BI 6 Months I73.9 - Peripheral vascular disease, unspecified Medications: Discontinued hydrochlorothiazide 50 mg PO QAM 90 days 90 tabs 2RF atorvastatin 80 mg PO DAILY 90 tabs 3RF E78.00 - Pure hypercholesterolemia, unspecified clonidine HCl 0.1 mg PO BID 90 days 180 tabs 1RF metoprolol succinate ER 25 mg PO DAILY 90 tabs 3RF I10 - Essential (primary) hypertension amlodipine 10 mg PO DAILY 90 tabs 1RF I10 - Essential (primary) hypertension finasteride 5 mg PO DAILY 90 days 90 tabs 2RF C61 - Malignant neoplasm of prostate, N40.1 - Benign prostatic hyperplasia with lower urinary tract symptoms, R33.9 - Retention of urine, unspecified Coding Level of Care Code Est Pt Level 4 (20300) Diagnoses Peripheral vascular disease I73.9
== END 2023-02-03 14:33 | disposition home or self-care (01) ==
LOC: HO.HVS 13:52
PROVIDERS: PCP Internal Medicine; Visit Provider Surgery Vascular Surgery
DX: I73.9 Peripheral vascular disease, unspecified (principal)
CPT/HCPCS: 99213

== ENCOUNTER → 2023-02-03 13:52 | Outpatient (BNVA) | payer MEDICARE, SELFPAY | PROVIDERS: PCP Internal Medicine; Visit Provider Surgery Vascular Surgery | DX: I73.9 Peripheral vascular disease, unspecified (principal) | CPT/HCPCS: 99212 ==

== ENCOUNTER 2023-03-21 07:40 | Outpatient (REF) | payer MEDICARE, SELFPAY | END 2023-03-21 07:41 | disposition home or self-care (01) | LOC: HO.LAB 07:40 | PROVIDERS: PCP Internal Medicine; Visit Provider Urology | DX: Z12.5 Encounter for screening for malignant neoplasm of prostate (principal); C61 Malignant neoplasm of prostate | CPT/HCPCS: 36415; 84153 ==

== ENCOUNTER 2023-04-01 13:27 | Outpatient (AMB) | payer MEDICARE, SELFPAY ==
[2023-04-01 13:51] VITALS: BP 132/72; PULSE 85; BMI 21.2
--- NOTE | 2023-04-01 13:51 | A.OFFPC_ITS ---
Vital Signs 04/01/23 13:51 Height 5 ft 9 in Weight 143 lb 4 oz BMI 21.2 BP 132/72 Blood Pressure Location Lt brachial Position Sitting Pulse 85 Pulse Source Pulse Oximeter Oxygen Delivery Method Room Air Intake Visit Reasons: htn Intake Note: Patient is here to follow up on HTN. Ingot Stripper Required: No Planning Assistant: Not Required per policy Accompanied by: Self / Same As Patient Allergies Penicillins [PCN] Allergy (Intermediate, Verified 04/01/23 13:52) Hives Medication List - Last Reconciled 04/01/23 by Michael Chery MD amlodipine 5 mg (1/2 x 10 mg) PO .@0600 aspirin (Adult Aspirin Regimen) 81 mg PO .@0600 atorvastatin 80 mg PO .@0600 bisacodyl (Dulcolax (bisacodyl)) 10 mg (2 x 5 mg) PO ONCE 1 day budesonide-formoterol 160-4.5 mcg/actuation (Symbicort) 2 puffs inhalation Q12H clonidine HCl 0.1 mg PO DAILY cyanocobalamin (vitamin B-12) 500 mcg PO .@1800 finasteride 5 mg PO DAILY 90 days hydrochlorothiazide 50 mg PO .@0600 metoprolol succinate ER 50 mg PO DAILY polyethylene glycol 3350 (Miralax) 238 grams PO ONCE Tobacco use date assessed: 04/01/23 Fall risk assessment: No Falls in past year Last assessed Fall Risk: 04/01/23 Dental Screening Dental Screen Date: 04/01/23 Did you have a dental visit in the last 12 months?: No Did you have a dental problem in the last 6 months where you did not have access to dental care?: No Was dental information given to patient?: No HPI htn HPI Details 67-year-old male smoker with a history of prostate cancer, peripheral arterial disease coronary artery disease COPD hypertension hypercholesterolemia last seen in December 2022. Patient had tubular adenoma and was advised by the information assurance specialist to another colonoscopy this year. Patient is here for follow-up. Patient is being followed up by vascular surgeon for the status post femoral femoral bypass surgery. Patient had an ultrasound of the abdomen as well as blood vessels of the lower extremity. Patient is stressed at work. work will be a little better [facility] Medical History COPD (chronic obstructive pulmonary disease) Coronary artery disease COVID-19 vaccination refused History of testicular cancer Hypercholesterolemia Hypertension Peripheral arterial disease Tobacco abuse Tubular adenoma Surgical History H/O heart bypass surgery History of testicular surgery History of tonsillectomy Hx of colonoscopy Hx of prostate biopsy Family History (Updated 04/01/23 @ 14:01 by Kerri Hernandez Carlos) Father No problems noted. Mother No problems noted. Maternal Grandmother Myocardial infarction Brother In good health Sister In good health Son In good health Son In good health Daughter In good health Sister Diabetes Social History Household Members: Spouse Housing: House Are you a primary skin care specialist to a significant other at home: No Do you presently have visiting nurse or other home services: No Alcohol intake: former Patient Tobacco Use Status: Current everyday Tobacco user Tobacco use type: Cigarette Cigarette Packs Per Day: 0.5 Cigarettes Per Day: 8 Years Smoked: 53 years e-Cigarette/Vaping Use: Never Used Second Hand Smoke Exposure: Yes service: No Current occupational status: employed Current occupational exposures/hazards: No Cognitive needs: No Hearing needs: No Vision needs: Yes Questionnaire PHQ-9 Over the last 2 weeks, how often have you been bothered by any of the following problems? 1. Little interest or pleasure in doing things: not at all 2. Feeling down, depressed, or hopeless: several days 3. Trouble falling or staying asleep, or sleeping too much: several days 4. Feeling tired or having little energy: several days 5. Poor appetite or overeating: not at all 6. Feeling bad about yourself - or that you are a failure or have let yourself or your family down: not at all 7. Trouble concentrating on things, such as reading the newspaper or watching television: not at all 8. Moving or speaking so slowly that other people could have noticed. Or the opposite - being so fidgety or restless that you have been moving around a lot more than usual: not at all 9. Thoughts that you would be better off or of hurting yourself in some way: not at all Total score: 3 Depression Screening Interpretation: Positive Source: Developed by Drs. Tad Angel, Jennie Nicole, Tello Mendoza and colleagues, with an educational noemi from [employer]. Thrive Questionnaire Date Thrive assessed: 04/01/23 I am a: Patient What is your living situation today?: I have a steady place to live Within the past 12 months, did the food you bought not last and you didn't have the money to get more?: Never true Within the past 12 months, did you worry whether your food would run out before you got money to buy more?: Never true Do you have trouble paying for medicines?: No Do you have trouble getting transportation to medical appointments?: No Do you have trouble paying your heating and electricity bill?: No Do you have trouble taking care of your child, family member or friend?: No Do you have trouble with day-to-day activities such as bathing, preparing meals, shopping, managing finances, etc.?: No Are you currently unemployed and looking for a job?: No Are you interested in more education?: No Please select the resources that you would like help with: None Currently or been in a relationship where the following occur: no concerns reported AUDIT C Alcohol Use Questionnaire (AUDIT-C) 1. How often do you have a drink containing alcohol?: Never 2. How many drinks containing alcohol do you have on a typical day when you are drinking?: 1 or 2 3. How often do you have six or more drinks on one occasion?: Never Total Score: 0 BIANCA-7 AMB Questionnaire BIANCA-7 Date BIANCA - 7 assessed: 04/01/23 Feeling nervous, anxious, or on edge: 0 = Not at all Not being able to stop or control worryin = Not at all Worrying too much about different things: 0 = Not at all Trouble relaxin = Not at all Being so restless that it is hard to sit still: 0 = Not at all Becoming easily annoyed or irritable: 0 = Not at all Feeling afraid as if something awful might happen: 0 = Not at all Total BIANCA-7 score (0-4 normal; 5-9 mild; 10-14 moderate; 15-21 severe): 0 Source: Developed by Jennie Wood, Tello Mendoza and colleagues, with an educational noemi from [employer]. Physical exam (Primary Care) Vital Signs: Last Vital Signs Pulse 85 04/01/23 13:51 BP 132/72 04/01/23 13:51 Oxygen Delivery Method Room Air 04/01/23 13:51 BMI result Body Mass Index 21.2 Tobacco/Smoking Status: Tobacco use Status Tobacco use date assessed 04/01/23 04/01/23 13:54 Patient Tobacco Use Status Current everyday Tobacco 04/01/23 13:54 Tobacco use type Cigarette 04/01/23 13:54 e-Cigarette/Vaping Use Never Used 04/01/23 14:02 PHQ-9: PHQ-9 Score PHQ-9: Total score 3 04/01/23 13:54 Depression Screening Interpretation: Positive Thrive Assessment: Date of Thrive Assessment Date Thrive assessed 04/01/23 04/01/23 13:54 Currently or been in a relationship where the following occur: no concerns reported Const General: alert; No acute distress HENMT Other: impacted cerumen bilateral Eyes Conjunctivae: conjunctivae normal Resp Auscultation: clear to auscultation bilaterally Cardio Rate: regular rate Rhythm: regular rhythm GI Inspection: Yes normal to inspection Extrem General: Yes normal to inspection and No edema Office Procedures Cerumen Removal From which ear canal was the cerumen removed: bilateral Removal: irrigation, otoscope w/curette and cerumen loop/spoon Notes: patient tolerated procedure well, no complications and ear canal clear [id number] Irrigation/Lavage Assessment and Plan Assessment & Plan (1) Status post femorofemoral bypass surgery: Code(s): Z95.828 - Presence of other vascular implants and grafts Plan: Patient continues to follow-up with the vascular surgeon (2) Prostate cancer: Code(s): C61 - Malignant neoplasm of prostate Plan: Continue to be monitored by urology (3) Peripheral vascular disease: Comment: 03/24/2018 - diagnostic angiogram 11/03/2022 - femoral to femoral bypass Code(s): I73.9 - Peripheral vascular disease, unspecified Plan: Control the cholesterol, weight, blood pressure, diabetes (4) Hypercholesterolemia: Code(s): E78.00 - Pure hypercholesterolemia, unspecified Plan: Avoid fried foods, chicken skin, eggs, butter margarine, pastries and meat. Be it pork or beef they have a lot of cholesterol LDL goal of less than 70 and triglyceride of less than 150 patient is taking atorvastatin 80 mg once a day (5) Coronary artery disease: Comment: does not have a supervisor belt and link assembly-sees PCP Dr. Chery & Dr. Veras-vascular(last appt >1yr ago per patient) Code(s): I25.10 - Atherosclerotic heart disease of [place] coronary artery without angina pectoris Qualifiers: Coronary Disease-Associated Artery/Lesion type: [place] artery [place] vs. transplanted heart: [place] heart Associated angina: without angina Qualified Code(s): I25.10 - Atherosclerotic heart disease of [place] coronary artery without angina pectoris Plan: Control the cholesterol, weight, blood pressure, diabetes (6) Tobacco abuse: Code(s): Z72.0 - Tobacco use Plan: Stop smoking! (7) COPD (chronic obstructive pulmonary disease): Code(s): J44.9 - Chronic obstructive pulmonary disease, unspecified Qualifiers: COPD type: emphysema Emphysema type: panlobular Qualified Code(s): J43.1 - Panlobular emphysema Plan: Stop smoking, continue with inhalers as needed (8) Hypertension: Code(s): I10 - Essential (primary) hypertension Qualifiers: Hypertension type: essential hypertension Qualified Code(s): I10 - Essential (primary) hypertension Plan: Continue with blood pressure medication. Decrease salt intake and exercise patient is taking amlodipine 5 mg once a day hydrochlorothiazide 50 mg once a day metoprolol 50 mg once a day continue with med - monitor the BP and record (9) Impacted cerumen of both ears: Code(s): H61.23 - Impacted cerumen, bilateral Plan: irrigation done TM intact bilateral Orders: Orders Comprehensive Met. Panel 3 Months E78.00 - Pure hypercholesterolemia, unspecified Michael Chery MD Lipid Panel 3 Months E78.00 - Pure hypercholesterolemia, unspecified Michael Chery MD Vitamin B12 and Folate 3 Months I25.10 - Atherosclerotic heart disease of [place] coronary artery without angina pectoris Michael Chery MD Prostate Specific Antigen Scr 3 Months I25.10 - Atherosclerotic heart disease of [place] coronary artery without angina pectoris Michael Chery MD Free T4 (Free Thyroxine) 3 Months I25.10 - Atherosclerotic heart disease of [place] coronary artery without angina pectoris Michael Chery MD Thyroid Stimulating Hormone 3 Months I25.10 - Atherosclerotic heart disease of [place] coronary artery without angina pectoris Michael Chery MD Complete Blood Count Auto Diff 3 Months I25.10 - Atherosclerotic heart disease of [place] coronary artery without angina pectoris Michael Chery MD Medications: New rosuvastatin 40 mg PO DAILY 30 tabs 5RF E78.00 - Pure hypercholesterolemia, unspecified Michael O MD Vik Changed From amlodipine 5 mg (1/2 x 10 mg) PO .@0600 90 tabs 1RF I25.10 - Atherosclerotic heart disease of [place] coronary artery without angina pectoris To amlodipine 5 mg PO .@0600 90 days 90 tabs 1RF I25.10 - Atherosclerotic heart disease of [place] coronary artery without angina pectoris Michael Chery MD Discontinued hydrochlorothiazide 50 mg PO QAM 90 days 90 tabs 2RF atorvastatin 80 mg PO DAILY 90 tabs 3RF E78.00 - Pure hypercholesterolemia, unspecified Lilia Conklin RN clonidine HCl 0.1 mg PO BID 90 days 180 tabs 1RF metoprolol succinate ER 25 mg PO DAILY 90 tabs 3RF I10 - Essential (primary) hypertension amlodipine 10 mg PO DAILY 90 tabs 1RF I10 - Essential (primary) hypertension Lilia Conklin RN finasteride 5 mg PO DAILY 90 days 90 tabs 2RF C61 - Malignant neoplasm of prostate, N40.1 - Benign prostatic hyperplasia with lower urinary tract symptoms, R33.9 - Retention of urine, unspecified Coding Level of Care Code Est Pt Level 4 (72444) Diagnoses Status post femorofemoral bypass surgery Z95.828 Prostate cancer C61 Peripheral vascular disease I73.9 Hypercholesterolemia E78.00 Coronary artery disease I25.10 Coronary Disease-Associated Artery/Lesion type: [place] artery [place] vs. transplanted heart: [place] heart Associated angina: without angina Tobacco abuse Z72.0 COPD (chronic obstructive pulmonary disease) J43.1 COPD type: emphysema Emphysema type: panlobular Hypertension I10 Hypertension type: essential hypertension Impacted cerumen of both ears H61.23 CPT Codes Office Procedure - CPT: [id number] Irrigation/Lavage ([id number])
== END 2023-04-01 14:53 | disposition home or self-care (01) ==
PROVIDERS: PCP Internal Medicine; Visit Provider Internal Medicine
DX: I10 Essential (primary) hypertension (principal); C61 Malignant neoplasm of prostate; J43.1 Panlobular emphysema; I73.9 Peripheral vascular disease, unspecified; H61.23 Impacted cerumen, bilateral; Z95.828 Presence of other vascular implants and grafts; E78.00 Pure hypercholesterolemia, unspecified; I25.10 Atherosclerotic heart disease of native coronary artery without angina pectoris; Z72.0 Tobacco use
CPT/HCPCS: 69209; 99214

== ENCOUNTER 2023-06-02 08:28 | Outpatient (AMB) | payer MEDICARE, SELFPAY ==
--- NOTE | 2023-06-02 08:34 | MHC.OFFVIS ---
Intake Intake Visit Reasons: 6M PSA(set) Intake Note: Patient is Present for Follow Up PSA Urology Medication: Finasteride Antibiotic Allergies: Penicillins Blood Thinners: Aspirin Allergies Penicillins [PCN] Allergy (Intermediate, Verified 06/02/23 08:38) Hives Medication List - Last Reconciled 06/02/23 by Alberto Bernal MD amlodipine 5 mg PO .@0600 90 days aspirin (Adult Aspirin Regimen) 81 mg PO .@0600 cyanocobalamin (vitamin B-12) 500 mcg PO .@1800 finasteride 5 mg PO DAILY 90 days hydrochlorothiazide 50 mg PO .@0600 metoprolol succinate ER 50 mg PO DAILY rosuvastatin 40 mg PO DAILY HPI HPI Comments History of Present Illness Details Zi is a pleasant male. He is a patient of Dr. Chery. He is seen for the following urologic conditions - prostate cancer - testicular cancer 1993 - XRT PSA slight rise on finasteride every other day Continue surveillance Four month follow-up PSA with MRI Progressive prostate symptoms Discussed laser procedure Will continue with finasteride current Prostate cancer - low-grade, low volume diagnosis May 2020 PSA 06/16 3.3, 07/17 1.9, 01/16 3.8 Prostate cancer diagnosed by Dr. Bernal PSA at diagnosis 5.7 free 8% Volume 40 gm Histologic type: Adenocarcinoma, acinar Histologic grade: Mylene score: 3 + 3 = 6 Tumor quantitation: Number cores positive: 2 Total number of cores: 12 % of tissue involved: 1-2% of all tissue examined Low-grade, low volume disease Recommendation active surveillance with finasteride [facility] Medical History Tubular adenoma COVID-19 vaccination refused History of testicular cancer Peripheral arterial disease Hypercholesterolemia Coronary artery disease Tobacco abuse COPD (chronic obstructive pulmonary disease) Hypertension Surgical History H/O heart bypass surgery Hx of colonoscopy Hx of prostate biopsy History of tonsillectomy History of testicular surgery Family History Father No problems noted. Mother No problems noted. Maternal Grandmother Myocardial infarction Brother In good health Sister In good health Son In good health Son In good health Daughter In good health Sister Diabetes Social History Household Members: Spouse Housing: House Are you a primary physician assistant primary care to a significant other at home: No Do you presently have visiting nurse or other home services: No Alcohol intake: former Patient Tobacco Use Status: Current everyday Tobacco user Tobacco use type: Cigarette Cigarette Packs Per Day: 0.5 Cigarettes Per Day: 8 Years Smoked: 53 years e-Cigarette/Vaping Use: Never Used Second Hand Smoke Exposure: Yes service: No Current occupational status: employed Current occupational exposures/hazards: No Cognitive needs: No Hearing needs: No Vision needs: Yes Review of Systems Const Denies chills and Denies fever(s) Card Reports no additional complaints and Denies syncope Resp Denies cough GI Denies abdominal pain and Denies heartburn Reports as per HPI and Denies change in libido Neuro Denies syncope Psych Denies change in libido Endo Denies change in libido Physical Exam Const General: cooperative, healthy appearing, comfortable and no acute distress Orientation/consciousness: patient oriented x3 HEENT Face and sinus: Yes normal facial exam Mouth: moist mucous membranes Neck Neck: Yes normal visual inspection, Yes full ROM and Yes trachea midline Chest Chest palpation & inspection: normal inspection of the chest Resp Effort & Inspection: normal respiratory effort, able to speak in complete sentences and no respiratory distress GI Inspection: Yes normal to inspection Back/Spine/Pelvis Cervical Spine: normal cervical lordosis Thoracic/Lumbar Spine: thoracic and lumbar spine normal to inspection Skin General skin exam: no rashes or lesions noted Neuro General: patient oriented x3, gait normal, tone normal and moves all extremities Extrem General: Yes normal to inspection and Yes capillary refill normal Assessment & Plan Assessment & Plan (1) Prostate cancer: Code(s): C61 - Malignant neoplasm of prostate (2) Weak urinary stream: Code(s): R39.12 - Poor urinary stream (3) Nocturia more than twice per night: Code(s): R35.1 - Nocturia Plan Four month follow-up imaging Orders: Orders Blood Urea Nitrogen 4 Months C61 - Malignant neoplasm of prostate Prostate Specific Antigen 4 Months C61 - Malignant neoplasm of prostate Creatinine 4 Months C61 - Malignant neoplasm of prostate MR pelvis wo/w con 4 Months C61 - Malignant neoplasm of prostate Patient Instructions: Imaging studies, laboratory and physical exam results were discussed and reviewed in detail. No major barriers to patient understanding were identified. An opportunity to ask questions regarding the treatment plan was provided. All questions were answered. The patient expressed understanding and agreement with the above treatment plan. The patient is aware they should contact our office by phone for worsening of their current condition or the appearance of new urologic symptoms. Compliance is encouraged with any medications and followup testing that is ordered. It is a privilege to participate in the urologic care of your patient. If you have any questions or concerns regarding treatment for the above conditions, or other urologic issues, please do not hesitate to contact me. The office telephone contact is [phone]. This note is constructed using voice recognition software. While every effort has been made to ensure accuracy puff iron operator errors may have been included. Yours sincerely, Dr Alberto Bernal MD, [facility] - Urology Providers of Expert, Compassionate Care for the Genitourinary System Coding Level of Care Code Est Pt Level 4 (56804) Diagnoses Prostate cancer C61 Weak urinary stream R39.12 Nocturia more than twice per night R35.1
== END 2023-06-02 09:07 | disposition home or self-care (01) ==
PROVIDERS: Visit Provider Urology
DX: C61 Malignant neoplasm of prostate (principal); R39.12 Poor urinary stream; R35.1 Nocturia
CPT/HCPCS: 99214

== ENCOUNTER → 2023-06-02 08:28 | Outpatient (BNVA) | payer MEDICARE, SELFPAY | PROVIDERS: Visit Provider Urology | DX: R39.12 Poor urinary stream (principal); R35.1 Nocturia; C61 Malignant neoplasm of prostate | CPT/HCPCS: 99212 ==

== ENCOUNTER 2023-07-12 16:46 | Emergency (ER) | payer MEDICARE, SELFPAY ==
--- NOTE | ~2023-07-12 | XR_ITS ---
EXAMINATION: XR CHEST CLINICAL INFORMATION: Cough. COMPARISON: None available. TECHNIQUE: Frontal view of the chest was obtained. FINDINGS: Hyperinflated lung field is present bilaterally with prominent bronchovascular markings likely represent chronic changes. No definite evidence of any focal airspace disease to suspect pneumonia. Cardiac mediastinal silhouette is within normal limits. No evidence of any pleural effusion or pneumothorax. XR/XR chest 1V IMPRESSION: Hyperinflated lung field and no radiographic evidence of pneumonia.
[2023-07-12 16:51] VITALS: BP 179/87; PULSE 115; RESP 18; TEMP 37.9; O2SAT 94; BMI 19.8
[2023-07-12] MEDS: Acetaminophen 325 MG TABLET 650 MG PO (16:59)
[2023-07-12 18:21] LABS: Influenza A PCR NEGATIVE (Negative); Influenza B PCR NEGATIVE (Negative); Resp Syncy Virus RNA Qual PCR NEGATIVE (Negative); SARS COV2 PCR INHOUSE POSITIVE (Negative)
[2023-07-12 19:35] VITALS: TEMP 37.1
[2023-07-12 19:36] VITALS: BP 154/82; PULSE 84; RESP 18; TEMP 37.1; O2SAT 95
--- NOTE | 2023-07-12 20:11 | ED_ITS ---
HPI - URI/Sore Throat General Chief Complaint: Upper Respiratory Symptoms Stated Complaint: 1-2 day headache,temp/blood pressure Time Seen by Provider: 07/12/23 20:11 Source: patient, RN notes reviewed and old records reviewed Mode of arrival: ambulatory History of Present Illness HPI Narrative: 68-year-old male with a past medical history of PAD, HLD, COPD, HTN, in of dry cough, chills, headache, myalgias, and fever T-max 101 degrees since yesterday. Also reports hypertension. S denies chest pain, shortness of breath, pedal edema, abdominal pain, nausea/vomiting. + sick contacts MD elicited complaint: fever, cough, rhinorrhea and nasal congestion Related Data Home Medications Medication Instructions Recorded Confirmed aspirin 81 mg tablet,delayed 81 mg PO .@0600 03/04/21 06/02/23 release (Adult Aspirin Regimen) cyanocobalamin (vitamin B-12) 500 mcg PO .@1800 09/25/22 06/02/23 1,000 mcg capsule Previous Rx's Medication Instructions Recorded metoprolol succinate 50 mg 50 mg PO DAILY #90 tabs 01/22/23 tablet,extended release 24 hr amlodipine 5 mg tablet 5 mg PO .@0600 90 days #90 tabs 04/01/23 rosuvastatin 40 mg tablet 40 mg PO DAILY #30 tabs 04/01/23 finasteride 5 mg tablet 5 mg PO DAILY #90 tabs 06/24/23 hydrochlorothiazide 50 mg tablet 50 mg PO .@0600 #90 tabs 07/08/23 Allergies Allergy/AdvReac Type Severity Reaction Status Date / Time Penicillins [PCN] Allergy Intermediate Hives Verified 07/12/23 16:51 Review of Systems Review of Systems: Constitutional: +Fever, No Chills ENT/Mouth: No Ear Pain, + Nasal Congestion, No Sinus Pain, No Hoarseness, No sore throat, + Rhinorrhea, No Swallowing Difficulty Cardiovascular: No Chest Pain, No SOB Respiratory: + Cough, No Sputum, No Wheezing Gastrointestinal: No Nausea, No Vomiting, No Diarrhea, No Constipation, No Abdominal pain Genitourinary: No Dysuria, No Hematuria,No Flank Pain Musculoskeletal: No joint pain, + Myalgias, No Joint Swelling Skin: No Skin Lesions, No rash Neuro: No Weakness, +BUCK Yes all other systems are reviewed and are negative Constitutional: Constitutional: Reports as per [facility] Past Medical History Attestation statement: The following information was validated with the patient. Source: old records reviewed Medical History Tubular adenoma COVID-19 vaccination refused History of testicular cancer Peripheral arterial disease Hypercholesterolemia Coronary artery disease Tobacco abuse COPD (chronic obstructive pulmonary disease) Hypertension Surgical History H/O heart bypass surgery Hx of colonoscopy Hx of prostate biopsy History of tonsillectomy History of testicular surgery Family History Family History Father No problems noted. Mother No problems noted. Maternal Grandmother Myocardial infarction Brother In good health Sister In good health Son In good health Son In good health Daughter In good health Sister Diabetes Social History Social History Household Members: Spouse Housing: House Are you a primary rn home care to a significant other at home: No Do you presently have visiting nurse or other home services: No Alcohol intake: former Comment: aware of trip hazard Patient Tobacco Use Status: Current everyday Tobacco user Tobacco use type: Cigarette Cigarette Packs Per Day: 0.5 Cigarettes Per Day: 8 Years Smoked: 53 years e-Cigarette/Vaping Use: Never Used Second Hand Smoke Exposure: Yes Advance Directives: No Advance Directives Information Provided: Yes service: No Current occupational status: employed Current occupational exposures/hazards: No Cognitive needs: No Hearing needs: No Vision needs: Yes Physical Exam Vital Signs: Vital Signs: Last Vital Signs Temp 98.8 F 07/12/23 19:36 Pulse 84 07/12/23 19:36 Resp 18 07/12/23 19:36 BP 154/82 H 07/12/23 19:36 Pulse Ox 95 07/12/23 19:36 O2 Del Method Room Air 07/12/23 19:36 BMI result Body Mass Index 19.8 Const: General: cooperative, healthy appearing and no acute distress Orientation/consciousness: patient oriented x3 Limitations: no limitations HEENT: Head: Yes normal to inspection and Yes atraumatic Ears: hearing grossly normal bilaterally General nose exam: Normal external nose present Face and sinus: Yes normal facial exam Eyes: General: appearance normal, both eyes and all related structures EOM: EOMs intact bilaterally Neck: Neck: Yes normal visual inspection and Yes no meningeal signs Resp: Effort & Inspection: normal respiratory effort and no respiratory distress Auscultation: clear to auscultation bilaterally Cardio: Rate: regular rate Heart sounds: S1 normal heart sound present and S2 normal heart sound present Skin: Rashes: no rashes Wounds: no wounds Neuro: General: patient oriented x3, tone normal and no meningeal signs Cranial nerves: Yes CN's II-XII intact bilaterally Gait exam (Neuro): Normal gait present Extrem: General: Yes normal to inspection Course Course Course Narrative: -2011--COVID-19 positive XR chest 1V IMPRESSION: Hyperinflated lung field and no radiographic evidence of pneumonia. Results discussed with patient including worrisome signs and symptoms and strict return precautions, and when to return to the emergency department. They verbalized understanding and feel safe for discharge at this time. Medications Administered Discontinued Medications Generic Name Dose Route Start Last Admin Trade Name Freq PRN Reason Stop Dose Admin Acetaminophen 650 mg 07/12/23 16:57 07/12/23 16:59 Acetaminophen 325 Mg Tablet PO 07/12/23 16:58 650 mg ONCE ONE Administration Medical Decision Making Medical Decision Making [facility] Narrative: 68-year-old male with a past medical history of PAD, HLD, COPD, HTN, in of dry cough, chills, headache, myalgias, and fever T-max 101 degrees since yesterday. On exam initially febrile to 100.3, tachycardic likely from fever., NAD, nontoxic appearing, lungs CTA. Concern for viral illness. Rule out pneumonia/bronchitis. Lower suspicion for ACS/PE or pneumonia Plan: Antipyretic, CXR, viral testing Please refer to course for remaining clinical decision making, interpretation of labs/imaging results, and discussions with consultants and/or family members. Differential Diagnosis Differential Diagnoses: The differential diagnosis associated with the presentation includes As above Admission/Observation Consideration of admission/observation: Escalation of care including admission/observation considered Lab Data [facility] Lab Attestation statement: I reviewed the patient's lab results. Labs: Lab Results 07/12/23 Range/Units 17:11 Influenza Type A (PCR) NEGATIVE (Negative) Influenza Type B (PCR) NEGATIVE (Negative) RSV RNA Qual (PCR) NEGATIVE (Negative) SARS-CoV-2 RNA (RT-PCR) POSITIVE A (Negative) Independent Interpretation I performed an independent interpretation of an: Plain X-Ray Radiology Impression Discussion of test interpretation with radiology: I have reviewed the radiologist's reading. Independent Historian Clinical information obtained from an independent historian. History obtained from or confirmed by: Other (Family) External Record Review External record reviewed: Inpatient record, Office record, Outpatient record, Prior outpatient labs, Prior outpatient radiology, Primary care record and Outside ED record Tests considered The following testing was considered but not selected: As above Prescription Management I considered prescription management with: Pain Medication Chronic Conditions Patient?s care impacted by: Other Discharge Plan Discharge Clinical Impression: COVID-19 Patient Disposition: Home, Self-Care Instructions: COVID-19 (Coronavirus Disease 2019) (ED) Additional Instructions: YOU HAVE COVID-19 At this time you will be okay for discharge. Please self isolate for 5 days. Do not expose yourself to others. You may not go to work or school. Please continue to follow cold instructions and wash your hands frequently. You may take Tylenol / Motrin as directed on the bottle for pain or fever. If you have constant or persistent shortness of breath, fever unresolved with medications, chest pain, or your unable to eat or drink please return to the ED CDC Guidelines for home isolation: - Stay away from others - WEAR A MASK if you are sick AND STAY HOME - Cover your mouth and nose with a tissue when you cough or sneeze. Dispose of tissues in a lined trash can and wash your hands immediately with soap and water for at least 20 seconds. If soap and water are not available, clean hands with alcohol-based hand professional architect that contains at least 60% alcohol. - Clean your hands often with soap and water for at least 20 seconds - Avoid touching your eyes, nose and mouth with unwashed hands - Do not share dishes, drinking glasses, cups, eating utensils, towels, or bedding with other people in your home. After using these items, wash them thoroughly with soap and water or put in the claim clerk. - Clean high-touch surfaces in your isolation area ( sick room and bathroom) every day; let a caregiver clean and disinfect high-touch surfaces in other areas of the home. Clean the area or item with soap and water or another detergent if it is dirty. Then, use a household disinfectant. - Limit contact with pets and animals: If you must care for a pet, wash your hands before and after interacting with them) Prescriptions: No Action finasteride 5 mg tablet 5 mg PO DAILY Qty: 90 1RF Rx Instructions: to be taken every other day hydrochlorothiazide 50 mg tablet 50 mg PO .@0600 Qty: 90 0RF aspirin [Adult Aspirin Regimen] 81 mg tablet,delayed release (DR/EC) 81 mg PO .@0600 metoprolol succinate 50 mg tablet extended release 24 hr 50 mg PO DAILY Qty: 90 1RF rosuvastatin 40 mg tablet 40 mg PO DAILY Qty: 30 5RF amlodipine 5 mg tablet 5 mg PO .@0600 90 Days Qty: 90 1RF cyanocobalamin (vitamin B-12) 1,000 mcg capsule 500 mcg PO .@1800 Referrals: Po,Michael Garcia MD [Primary Care Provider] - 1 week Stand Alone Forms: Work/School Release Interventions: ED Discharge Assessment Last Done: 07/12/23 20:36 Discharge Date/Time: 07/12/23 20:36
== END 2023-07-12 20:36 | disposition home or self-care (01) ==
PROVIDERS: Emergency Provider Emergency Medicine; PCP Internal Medicine
DX: U07.1 COVID-19 (principal); R05.9 Cough, unspecified; I10 Essential (primary) hypertension; R51.9 Headache, unspecified; J44.9 Chronic obstructive pulmonary disease, unspecified; R50.9 Fever, unspecified
CPT/HCPCS: 0241U; 71045; 99284

== ENCOUNTER 2023-07-14 14:00 | Outpatient (AMB) | payer MEDICARE, SELFPAY ==
--- NOTE | 2023-07-14 14:00 | A.OFFPC_ITS ---
<Statement entered by Mellissa Roman RN - 07/14/23 15:53> pt called looking for his new meds, pharmacy called, just got order, will varify with office renal status, as there are 2 doses of med for covid. Intake Visit Reasons: COVID positive, has symptoms, Allergies Penicillins [PCN] Allergy (Intermediate, Verified 07/14/23 14:01) Hives Tobacco use date assessed: 07/14/23 Fall risk assessment: No Falls in past year Last assessed Fall Risk: 07/14/23 HPI COVID positive, has symptoms, HPI Details 68-year-old male smoker with a history o f prostate cancer hypercholesterolemia coronary artery disease hypertension COPD coming in through Telehealth for recent COVID-19 infection. Patient was last seen in March 2023 complains of having sore throat, not much cough, has fevers,. complains of having also rash on the ear and asking for triamcinolone cream. Patient also follows up with urology and had frequency and was placed on finasteride has been advised to cut into half and take it once a day but was confused because the nurse practitioner was seeing not to cut into half. Patient does feel better with the half tablet. Discussed that to do half tablet. [facility] Medical History Tubular adenoma COVID-19 vaccination refused History of testicular cancer Peripheral arterial disease Hypercholesterolemia Coronary artery disease Tobacco abuse COPD (chronic obstructive pulmonary disease) Hypertension Surgical History H/O heart bypass surgery Hx of colonoscopy Hx of prostate biopsy History of tonsillectomy History of testicular surgery Family History Father No problems noted. Mother No problems noted. Maternal Grandmother Myocardial infarction Brother In good health Sister In good health Son In good health Son In good health Daughter In good health Sister Diabetes Social History Household Members: Spouse Housing: House Are you a primary career development counselor to a significant other at home: No Do you presently have visiting nurse or other home services: No Alcohol intake: former Comment: aware of trip hazard Patient Tobacco Use Status: Current everyday Tobacco user Tobacco use type: Cigarette Cigarette Packs Per Day: 0.5 Cigarettes Per Day: 8 Years Smoked: 53 years e-Cigarette/Vaping Use: Never Used Second Hand Smoke Exposure: Yes service: No Current occupational status: employed Current occupational exposures/hazards: No Cognitive needs: No Hearing needs: No Vision needs: Yes Questionnaire Thrive Questionnaire Date Thrive assessed: 04/01/23 AUDIT C Alcohol Use Questionnaire (AUDIT-C) 1. How often do you have a drink containing alcohol?: Never 2. How many drinks containing alcohol do you have on a typical day when you are drinking?: 1 or 2 3. How often do you have six or more drinks on one occasion?: Never Total Score: 0 BIANCA-7 AMB Questionnaire BIANCA-7 Date BIANCA - 7 assessed: 04/01/23 Source: Developed by Drs. Tad Angel, Jennie Nicole, Tello Mendoza and colleagues, with an educational noemi from [employer]. Physical exam (Primary Care) Tobacco/Smoking Status: Tobacco use Status Tobacco use date assessed 07/14/23 07/14/23 14:04 Patient Tobacco Use Status Current everyday Tobacco 07/14/23 14:01 Tobacco use type Cigarette 07/14/23 14:01 e-Cigarette/Vaping Use Never Used 07/14/23 14:01 Thrive Assessment: Date of Thrive Assessment Date Thrive assessed 04/01/23 07/14/23 14:01 Telehealth Telehealth Location of provider rendering services: practice address Location of patient: address on file Patient Identification confirmed using: Name, : Yes Telehealth method: voice only ([phone]) Patient verbally consented to treatment: Yes Patient verbally consented to billing insurance company: Yes Patient informed of any privacy concerns related to visit: Yes Minutes spent on Phone/Video with Pt.: 25 Assessment and Plan Assessment & Plan (1) COVID-19: Comment: July 12, 2023 Code(s): U07.1 - COVID-19 Plan: increase oral fluids, antiviral sent, (2) Eczema: Comment: ear rash Code(s): L30.9 - Dermatitis, unspecified Plan: Steroid cream sent in (3) Nocturia more than twice per night: Code(s): R35.1 - Nocturia Plan: patient was advised by Urology to cut finasteride into half which produces better results for the patient. Medications: New benzocaine-menthol 15-2.6 mg (Cepacol Sore Throat (benzocaine-menthol)) 1 taniya mucous membrane Q4H PRN 16 ea 1RF pain U07.1 - COVID-19 triamcinolone acetonide 0.5% 1 appl topical BID 15 grams 0RF L30.9 - Dermatitis, unspecified nirmatrelvir-ritonavir 300 mg (150 mg x 2)-100 mg (Paxlovid) take TWO 150 mg tablets of nirmatrelvir with ONE 100 mg tablet of ritonavir twice daily for 5 days PO 30 ea 0RF U07.1 - COVID-19 Refilled finasteride to be taken every other day 5 mg PO DAILY 90 tabs 1RF C61 - Malignant neoplasm of prostate, N40.1 - Benign prostatic hyperplasia with lower urinary tract symptoms, R33.9 - Retention of urine, unspecified Coding Level of Care Code Tele Est Pt Level 4 (75937) Diagnoses COVID-19 U07.1 Eczema L30.9 Nocturia more than twice per night R35.1
== END 2023-07-14 15:09 | disposition home or self-care (01) ==
LOC: HO.HMGH 14:00
PROVIDERS: PCP Internal Medicine; Visit Provider Internal Medicine
DX: U07.1 COVID-19 (principal); L30.9 Dermatitis, unspecified; R35.1 Nocturia
CPT/HCPCS: 99443

== ENCOUNTER 2023-07-15 09:00 | Emergency (ER) | payer MEDICARE, SELFPAY ==
--- NOTE | ~2023-07-15 | XR_ITS ---
EXAMINATION: XR SHOULDER, LEFT CLINICAL INFORMATION: Left shoulder pain after a fall COMPARISON: None available. TECHNIQUE: AP external rotation, Grashey, scapular Y, and axillary views of the left shoulder. FINDINGS: The bones and soft tissues are normal. No fracture. Glenohumeral and acromioclavicular alignment is anatomic with normal joint space. No abnormal soft tissue calcifications. XR/XR shoulder LT min 2V IMPRESSION: Normal left shoulder.
--- NOTE | ~2023-07-15 | CT_ITS ---
CT HEAD WITHOUT IV CONTRAST CT CERVICAL SPINE WITHOUT IV CONTRAST INDICATION: Fall with head strike COMPARISON: None available. TECHNIQUE: Multidetector CT acquisitions of the head and cervical spine were obtained without IV contrast. Multiplanar reformats were acquired and utilized for image interpretation. This CT examination was performed using dose optimization techniques as appropriate, variously including the following: *Automated exposure control *Adjustment of mA and/or kV according to patient size (this includes techniques or standardized protocols for targeted exams where dose is matched to indication/reason for exam; i.e. extremities or head) *Use of iterative reconstruction technique FINDINGS: HEAD: Mild chronic microangiopathy. There is acute subarachnoid hemorrhage within inferior frontal sulci bilaterally along the floor the anterior cranial fossa and there are a few probable small hemorrhagic contusions within the inferior frontal lobes anteriorly. Trace subdural hematoma along the anterior inferior right frontal convexity. A small 5 mm focus of nodular increased density along the anteromedial aspect of the left middle cranial fossa on image 20 of series 9 may reflect a small focus of extra-axial hemorrhage or a small meningioma. There is no mass effect. There is no hydrocephalus, midline shift, or other herniation pattern. Gann to white matter differentiation is diffusely maintained without evidence of an evolved acute territorial infarct. The basilar cisterns are preserved. No significant soft tissue abnormality. No acute osseous abnormality. The paranasal sinuses and the mastoid air cells are well aerated. CERVICAL SPINE: Cervical alignment is normal. The vertebral body heights are maintained. There is multilevel degenerative disc disease and hypertrophic facet arthropathy. There are no acute fractures and there are no acute subluxations. Craniocervical junction is intact. There is no prevertebral soft tissue swelling. There are blebs at the lung apices. There is extensive atherosclerotic calcification involving the carotid bifurcations bilaterally. CT/CT cervical spine wo IV con IMPRESSION: - There is acute subarachnoid hemorrhage within inferior frontal sulci bilaterally along the floor the anterior cranial fossa and there are a few probable small hemorrhagic contusions within the inferior frontal lobes anteriorly. Trace subdural hematoma along the anterior inferior right frontal convexity. A small 5 mm focus of nodular increased density along the anteromedial aspect of the left middle cranial fossa on image 20 of series 9 may reflect a small focus of extra-axial hemorrhage or a small meningioma. There is no mass effect. - No acute osseous abnormality within the cervical spine. Cervical spondylosis. Findings discussed with Dr. Reddy at 2:00 PM on 07/15/2023.
--- NOTE | ~2023-07-15 | XR_ITS ---
EXAMINATION: XR CHEST CLINICAL INFORMATION: Chest pain syncope COMPARISON: Chest radiograph from 08/12/2022 TECHNIQUE: 2 views of the chest were obtained. FINDINGS: Hyperinflation bilateral lung morrissey. Redemonstration of bilateral perihilar bronchovascular markings. Biapical pleural parenchymal scarring. No pneumothorax. Trachea is midline. Cardiomediastinal silhouette is not enlarged. No large pleural effusion. Degenerative changes of the thoracolumbar spine. Soft tissues are unremarkable. XR/XR chest 2V IMPRESSION: 1. Hyperinflation bilateral lung morrissey. 2. Redemonstration of bilateral perihilar bronchovascular markings. 3. Biapical pleural parenchymal scarring.
--- NOTE | 2023-07-15 09:05 | ECG_ITS ---
Test Reason : CHEST PAIN Blood Pressure : / mmHG Vent. Rate : 079 BPM Atrial Rate : 079 BPM P-R Int : 178 ms QRS Dur : 102 ms QT Int : 396 ms P-R-T Axes : 080 092 082 degrees QTc Int : 454 ms Normal sinus rhythm Biatrial enlargement Rightward axis Pulmonary disease pattern Incomplete right bundle branch block Abnormal ECG No previous ECGs available Referred By: Generic ED Physician Electronically Signed By:ELLIOT FLORES MD
[2023-07-15 09:14] VITALS: BP 126/77; PULSE 64; RESP 19; TEMP 36.6; O2SAT 97; BMI 20.2
[2023-07-15 10:25] LABS: MANUAL DIFF FLAG NO
[2023-07-15 10:26] LABS: Basophils Percent Auto 0.3 % (0-2); Eosinophils Percent Auto 0.5 % (0-4); Hematocrit 48.2 % (42.0-52.0); Hemoglobin 16.5 g/dl (14.0-18.0); Imm Gran Abs Auto 0.02 X10*3/uL (0.00-0.03); Imm Gran Pct Auto 0.5 % (0.0-0.4); Lymphocytes Absolute Auto 0.7 X10*3/uL (1.2-4.9); Lymphocytes Percent Auto 17.3 % (20-40); Mean Corpuscular HGB Conc 34.2 g/dl (31.0-36.0); Mean Corpuscular Hemoglobin 29.7 pg (27.0-33.0); Mean Corpuscular Volume 86.8 fL (80.0-98.0); Mean Platelet Volume 9.9 fL (9.4-12.4); Monocytes Absolute Auto 0.5 X10*3/uL (0.1-1.2); Monocytes Percent Auto 12.3 % (2-11); Neutrophils Absolute Auto 2.8 x10*3/uL (2.0-8.3); Neutrophils Percent Auto 69.1 % (45-73); Platelet Count 155 X10*3/uL (160-400); Red Blood Count 5.55 X10*6/uL (4.60-5.80); Red Cell Distribution Width 13.8 % (11.0-16.0)
[2023-07-15 10:40] LABS: Anion Gap 13 (12-20); Blood Urea Nitrogen 21 mg/dL (9-16); Calcium 9.5 mg/dL (8.4-10.2); Carbon Dioxide 29 mmol/L (22-29); Chloride 97 mmol/L (96-108); Creatinine Clr Calc Pharmacy 39.2; Estimated Glomerular Filt Rate 40; Glucose Random 153 mg/dL (60-115); Potassium 3.6 mmol/L (3.3-5.1); Sodium 135 mmol/L (135-145)
[2023-07-15 10:48] LABS: Troponin-I High Sensitivity 5.6 ng/L (<3.5-35.0)
[2023-07-15 14:06] LABS: B Type Natriuretic Peptide 13 pg/mL (<100)
--- NOTE | 2023-07-15 14:07 | ED.SYNCOPE ---
HPI - Syncope General Chief Complaint: Syncope Stated Complaint: Chest Pain Time Seen by Provider: 07/15/23 14:03 Source: patient and family (Son, Venu) Mode of arrival: ambulatory Limitations: no limitations History of Present Illness HPI narrative: 68-year-old male with a past medical history of PAD, HLD, COPD, HTN, testicular cancer, hx of fem-fem bypass 11/03/22 who was seen on 07/12/2023 was diagnosed with COVID infection. Patient was complaining of frequent diarrhea every time he ate or drink, he had fever as high as 101.9. States he was also having headaches. Prior to coming to the emergency department he states that he bent over and put a log and wood stove. He then drink a glass of water and developed severe pain in his sternal area and then had a syncopal episode. He woke up on the floor and does not know how long he was unconscious. Patient states he has had similar chest pain in the past from drinking water but has never had a syncopal episode. He states that the chest pain that he is experiencing was greater than 10/10. He complained of left shoulder pain and headache. The patient does take aspirin 81 mg daily but is on no other blood thinners. Related Data Home Medications Medication Instructions Recorded Confirmed aspirin 81 mg tablet,delayed 81 mg PO .@0600 03/04/21 06/02/23 release (Adult Aspirin Regimen) cyanocobalamin (vitamin B-12) 500 mcg PO .@1800 09/25/22 06/02/23 1,000 mcg capsule Previous Rx's Medication Instructions Recorded metoprolol succinate 50 mg 50 mg PO DAILY #90 tabs 01/22/23 tablet,extended release 24 hr amlodipine 5 mg tablet 5 mg PO .@0600 90 days #90 tabs 04/01/23 rosuvastatin 40 mg tablet 40 mg PO DAILY #30 tabs 04/01/23 hydrochlorothiazide 50 mg tablet 50 mg PO .@0600 #90 tabs 07/08/23 benzocaine 15 mg-menthol 2.6 mg 1 taniya mucous membrane Q4H PRN pain 07/14/23 lozenges (Cepacol Sore Throat #16 ea (benzocaine-menthol)) finasteride 5 mg tablet 5 mg PO DAILY #90 tabs 07/14/23 nirmatrelvir 300 mg (150 mg See Rx Instructions PO .COMPLEX 07/14/23 x2)-ritonavir 100 mg tablet,dose #30 ea pack (Paxlovid) triamcinolone acetonide 0.5 % 1 appl topical BID #15 grams 07/14/23 topical cream Allergies Allergy/AdvReac Type Severity Reaction Status Date / Time Penicillins [PCN] Allergy Intermediate Hives Verified 07/15/23 09:14 Review of Systems Review of Systems: Yes all other systems are reviewed and are negative [facility] Past Medical History [facility] Narrative: Social history: Patient smokes 1 pack of cigarettes per day times 54 years. He states he occasionally drinks alcohol. He denies drug use. Medical History Tubular adenoma COVID-19 vaccination refused History of testicular cancer Peripheral arterial disease Hypercholesterolemia Coronary artery disease Tobacco abuse COPD (chronic obstructive pulmonary disease) Hypertension Surgical History H/O heart bypass surgery Hx of colonoscopy Hx of prostate biopsy History of tonsillectomy History of testicular surgery Family History Family History Father No problems noted. Mother No problems noted. Maternal Grandmother Myocardial infarction Brother In good health Sister In good health Son In good health Son In good health Daughter In good health Sister Diabetes Social History Social History Household Members: Spouse Housing: House Are you a primary ambulatory care nurse to a significant other at home: No Do you presently have visiting nurse or other home services: No Alcohol intake: former Comment: aware of trip hazard Patient Tobacco Use Status: Current everyday Tobacco user Tobacco use type: Cigarette Cigarette Packs Per Day: 0.5 Cigarettes Per Day: 8 Years Smoked: 53 years e-Cigarette/Vaping Use: Never Used Second Hand Smoke Exposure: Yes Advance Directives: No Advance Directives Information Provided: No service: No Current occupational status: employed Current occupational exposures/hazards: No Cognitive needs: No Hearing needs: No Vision needs: Yes Physical Exam Vital Signs: Vital Signs: Last Vital Signs Temp 98.1 F 07/15/23 14:29 Pulse 84 07/15/23 15:02 Resp 20 07/15/23 15:02 BP 150/84 H 07/15/23 15:02 Pulse Ox 96 07/15/23 15:02 O2 Del Method Room Air 07/15/23 15:02 BMI result Body Mass Index 20.2 Vital signs revealed an elevated respiratory rate of 22 and elevated blood pressure of 150/84 Exam: General: Awake, alert in no distress Head: Normocephalic, atraumatic, no obvious hematomas with palpation of his scalp EENT: PERRL, Lids normal, sclera normal, conjunctiva normal, nose normal , ears normal, throat without erythema or exudates Neck: Supple, no adenopathy, no trachea midline or C-spine tenderness Lung: breath sounds symmetric, no wheezing, rales or rhonchi Chest: symmetric movement, nontender Heart: regular rate and rhythm, normal S1, S2 no murmurs or rubs Abdomen: soft, non-tender, nondistended, normal bowel sounds Back: no vertebral tenderness, no CVAT Extremities: Patient has tenderness palpation over his left shoulder but I am able to move the shoulder joint with only minimal discomfort, he has increased pain when he tries to actively lift his left hand over his head. Neuro: Awake, alert, oriented, normal speech, cranial nerves intact, moves all extremities symmetrically Psych: Pleasant, cooperative Medications Administered Generic Name Dose Route Start Last Admin Trade Name Freq PRN Reason Stop Dose Admin Sodium Chloride 1,000 mls @ 999 mls/hr 07/15/23 14:33 07/15/23 15:04 Ns IV 07/15/23 15:33 999 mls/hr .Q1H1M STA Administration Discontinued Medications Generic Name Dose Route Start Last Admin Trade Name Freq PRN Reason Stop Dose Admin Morphine Sulfate 4 mg 07/15/23 14:33 07/15/23 15:04 Morphine Sulfate 4 Mg/Ml Cartridge IVPUSH 07/15/23 14:34 4 mg ONCE STA Administration Protocol Ondansetron HCl 4 mg 07/15/23 14:33 07/15/23 15:04 Ondansetron Hcl 4 Mg/2 Ml Vial IVPUSH 07/15/23 14:34 4 mg ONCE ONE Administration Medical Decision Making Medical Decision Making MDM Narrative: 68-year-old male with a past medical history of PAD, HLD, COPD, HTN, testicular cancer, hx of fem-fem bypass 11/03/22 who was seen on 07/12/2023 was diagnosed with COVID infection. Patient developed severe pain in his chest after drinking water and then had a syncopal episode, waking up on the floor after an unknown period of time. Presented emergency department complaining of left shoulder plain and headache. Vital signs did reveal an elevated respiratory rate and elevated blood pressure. Exam did reveal tenderness palpation of his left shoulder. Following evaluation was ordered: CBC, BMP BNP, troponin, chest x-ray two view, left shoulder x-ray two view, CT scan of the head and cervical spine Patient was treated with morphine 4 mg IV, Zofran 4 mg IV and normal saline 1 L IV My interpretation patient's laboratory evaluation is as follows: Elevated 21 with an elevated creatinine of 1.7-these are elevated compared to BUN of 18 with a creatinine of 1.0 from 11/04/2022. Patient's 1st high sensitive troponin I was 5.6 (normal less than 3.5 to 35) 4 hour repeat troponin was 4.1 suggesting the patient did not have cardiac injury. Twelve EKG was unremarkable pain. Patient most likely had a vasovagal syncope secondary to esophageal spasm caused by drinking water. X-ray of the left shoulder and chest x-ray revealed no acute fractures CT scan of the cervical spine revealed no acute fractures CT scan of the brain did reveal subarachnoid hemorrhage-see reading below pain I did discuss the need to transfer to [facility] with the patient and the patient's son of the agree to transfer. 15:34 I did discuss the patient with the trauma surgeon at [facility], Dr. Finley who accepted the patient as an ED to ED transfer. Differential Diagnosis Differential Diagnoses: The differential diagnosis associated with the presentation includes Consult Healthcare Provider Management of the patient was discussed with: [employer] Software Developer Lab Data [facility] Lab Attestation statement: I reviewed the patient's lab results. See MDM for my discuss 07/15/23 10:15 07/15/23 10:15 Labs: Lab Results 07/15/23 07/15/23 Range/Units 10:15 14:23 WBC 4.0 L (4.8-10.8) X10*3/uL RBC 5.55 D (4.60-5.80) X10*6/uL Hgb 16.5 D (14.0-18.0) g/dl Hct 48.2 D (42.0-52.0) % MCV 86.8 (80.0-98.0) fL MCH 29.7 (27.0-33.0) pg MCHC 34.2 (31.0-36.0) g/dl RDW 13.8 (11.0-16.0) % Plt Count 155 L D (160-400) X10*3/uL MPV 9.9 (9.4-12.4) fL Immature Gran % (Auto) 0.5 H (0.0-0.4) % Neut % (Auto) 69.1 (45-73) % Lymph % (Auto) 17.3 L (20-40) % Rankin % (Auto) 12.3 H (2-11) % Eos % (Auto) 0.5 (0-4) % Baso % (Auto) 0.3 (0-2) % Lymph # (Auto) 0.7 L (1.2-4.9) X10*3/uL Rankin # (Auto) 0.5 (0.1-1.2) X10*3/uL Eos # (Auto) 0.0 (0.0-0.4) X10*3/uL Baso # (Auto) 0.0 (0.0-0.2) X10*3/uL Abs Immat Gran (auto) 0.02 (0.00-0.03) X10*3/uL Absolute Neuts (auto) 2.8 (2.0-8.3) x10*3/uL Absolute Nucleated RBC 0.000 (0.0-0.012) X10*3/uL Nucleated RBC % (auto) 0.0 (0.0-0.2) /100WBC Sodium 135 (135-145) mmol/L Potassium 3.6 (3.3-5.1) mmol/L Chloride 97 (96-108) mmol/L Carbon Dioxide 29 (22-29) mmol/L Anion Gap 13 (12-20) BUN 21 H (9-16) mg/dL Creatinine 1.70 H (0.5-1.4) mg/dL Estim Creat Clear Calc 39.2 Estimated GFR 40 Random Glucose 153 H (60-115) mg/dL Calcium 9.5 D (8.4-10.2) mg/dL Troponin I High Sens 5.6 6.1 (<3.5-35.0) ng/L B-Natriuretic Peptide 13 (<100) pg/mL Independent Interpretation I performed an independent interpretation of an: EKG and Plain X-Ray Interpretation: My interpretation of the patient's right shoulder x-ray is as follows: No acute fracture My interpretation patient's two view chest x-ray is as follows: No acute infiltrates seen My independent interpretation patient's 12 EKG done at 099 hours is as follows: Normal sinus rhythm with a rate of 79, normal [place] interval, prolonged QRS duration of 102 milliseconds, normal QTC interval of 454 milliseconds, no ST segment elevation, no ST segment depression, no significant T-wave abnormalities, R/R prime V1 consistent with incomplete right bundle-branch block. Radiology Impression Discussion of test interpretation with radiology: I have reviewed the radiologist's reading. Radiologist Impression: XR chest 2V IMPRESSION: 1. Hyperinflation bilateral lung morrissey. 2. Redemonstration of bilateral perihilar bronchovascular markings. 3. Biapical pleural parenchymal scarring. Dictated By: Malathi Tan MD CT cervical spine wo IV con IMPRESSION: - There is acute subarachnoid hemorrhage within inferior frontal sulci bilaterally along the floor the anterior cranial fossa and there are a few probable small hemorrhagic contusions within the inferior frontal lobes anteriorly. Trace subdural hematoma along the anterior inferior right frontal convexity. A small 5 mm focus of nodular increased density along the anteromedial aspect of the left middle cranial fossa on image 20 of series 9 may reflect a small focus of extra-axial hemorrhage or a small meningioma. There is no mass effect. - No acute osseous abnormality within the cervical spine. Cervical spondylosis. Findings discussed with Dr. Reddy at 2:00 PM on 07/15/2023. Dictated By: Brayden Nazario MD Independent Historian Clinical information obtained from an independent historian. History obtained from or confirmed by: Other (Son) Critical Care Time Critical Care Time Critical Care Time: Yes Total Critical Care Time: 45 Attestation: Critical Care: The patient was critically ill with a high probability of imminent or life threatening deterioration. I spent greater than 30 minutes of discontinuous time evaluating the patient,delivering critical care at the bedside, discussing and evaluating pertinent data with consultants. Critical care time does not include time spent performing separately billable procedures or teaching. Total time spent performing critical care was 45 minutes. Discharge Plan Discharge Clinical Impression: Subarachnoid hemorrhage, Esophageal spasm, COVID-19 virus infection, Acute dehydration Syncope Qualifiers: Syncope type: vasovagal syncope Qualified Code(s): R55 - Syncope and collapse Patient Disposition: [facility] Transfer Details: ED to ED transfer [facility] as a trauma consult Prescriptions: No Action hydrochlorothiazide 50 mg tablet 50 mg PO .@0600 Qty: 90 0RF aspirin [Adult Aspirin Regimen] 81 mg tablet,delayed release (DR/EC) 81 mg PO .@0600 metoprolol succinate 50 mg tablet extended release 24 hr 50 mg PO DAILY Qty: 90 1RF rosuvastatin 40 mg tablet 40 mg PO DAILY Qty: 30 5RF amlodipine 5 mg tablet 5 mg PO .@0600 90 Days Qty: 90 1RF Paxlovid 300 mg (150 mg x 2)-100 mg tablets,dose pack See Rx Instructions PO .COMPLEX Qty: 30 0RF Rx Instructions: take TWO 150 mg tablets of nirmatrelvir with ONE 100 mg tablet of ritonavir twice daily for 5 days PO Cepacol Sore Throat (lala-men) 15-2.6 mg lozenge 1 taniya mucous membrane Q4H PRN (Reason: pain) Qty: 16 1RF triamcinolone acetonide 0.5 % cream 1 appl topical BID Qty: 15 0RF finasteride 5 mg tablet 5 mg PO DAILY Qty: 90 1RF Rx Instructions: to be taken every other day cyanocobalamin (vitamin B-12) 1,000 mcg capsule 500 mcg PO .@1800
--- NOTE | 2023-07-15 14:25 | PC.NURSE ---
BROUGHT IN FROM [facility], #20 PIV PLACED IN RAC, 2ND TROPONIN DRAWN. PT ENDORSES DIZZINESS WHILE AMBULATING, HYPERTENSIVE. PLACED ON PHARMACY ORDER ENTRY TECHNICIAN, AT BEDSIDE.
[2023-07-15 14:29] VITALS: BP 167/91; PULSE 77; RESP 20; TEMP 36.7; O2SAT 96
[2023-07-15 14:52] LABS: Troponin-I High Sensitivity 6.1 ng/L (<3.5-35.0)
[2023-07-15 15:02] VITALS: BP 150/84; PULSE 84; RESP 20; O2SAT 96
[2023-07-15] MEDS: Morphine Sulfate 4 MG/ML CARTRIDGE IVPUSH (15:04)
[2023-07-15] MEDS: ondansetron HCL 4 MG/2 ML VIAL IVPUSH (15:04)
[2023-07-15] MEDS: 0.9 % Sodium Chloride 1,000 ML 999 ML IV (15:04)
--- NOTE | 2023-07-15 15:15 | MHC.EDTECH ---
Called [facility] at [phone] Dr[address] Saldana took call.
== END 2023-07-15 16:47 | disposition short-term general hospital (02) ==
PROVIDERS: Physician Assistant; Emergency Provider Emergency Medicine Emergency Medical Services; PCP Internal Medicine
DX: S06.6XAA Traumatic subarachnoid hemorrhage with loss of consciousness status unknown, initial encounter (principal); W18.30XA Fall on same level, unspecified, initial encounter; Y93.89 Activity, other specified; Y92.009 Unspecified place in unspecified non-institutional (private) residence as the place of occurrence of the external cause; Y99.8 Other external cause status; U07.1 COVID-19; R55 Syncope and collapse; R07.89 Other chest pain; K22.4 Dyskinesia of esophagus; E86.0 Dehydration; R51.9 Headache, unspecified; M25.512 Pain in left shoulder; M54.2 Cervicalgia; R06.02 Shortness of breath; Z79.899 Other long term (current) drug therapy
CPT/HCPCS: 36415; 70450; 71046; 72125; 73030; 80048; 83880; 84484; 85025; 93005; 96374; 96375; 99284; 99285; J2270; J2405

== ENCOUNTER → 2023-07-15 09:05 | Outpatient (BNV) | payer MEDICARE, SELFPAY | PROVIDERS: Emergency Provider Emergency Medicine Emergency Medical Services; PCP Internal Medicine; Visit Provider Internal Medicine Cardiovascular Disease | DX: R94.31 Abnormal electrocardiogram [ECG] [EKG] (principal); R07.9 Chest pain, unspecified | CPT/HCPCS: 93010 ==

== ENCOUNTER 2023-07-30 08:05 | Outpatient (REF) | payer MEDICARE, SELFPAY ==
--- NOTE | ~2023-07-30 | US_ITS ---
EXAMINATION: Noninvasive assessment of the bilateral lower extremities with ARTERIAL DUPLEX and ANKLE BRACHIAL INDICES (ABIs). Arterial duplex evaluation of the abdominal aorta CLINICAL INFORMATION: Peripheral vascular disease. History of femorofemoral bypass graft TECHNIQUE: Duplex Doppler techniques with waveform analysis and measurement of velocities in the abdominal aorta and bilateral iliac arteries. Bilateral common femoral, profunda femoris, superficial femoral, popliteal and tibial arteries were performed. Additionally, ankle pulse volume recordings, ankle pressure measurements and ankle brachial indices were obtained of the lower extremity arterial system bilaterally. The study was performed only at rest. COMPARISON: 01/29/2023 and 03/18/2022 FINDINGS: DIRECT DUPLEX DOPPLER FINDINGS: There is a [id number] femorofemoral bypass graft which is patent on color flow Doppler. Velocity measurements are as follows: Inflow artery (left common femoral artery): 276 cm/s, monophasic Proximal anastomosis: 164 cm/s, triphasic Proximal bypass graft: 127 cm/s, triphasic Mid bypass graft: 105 cm/s, triphasic Distal bypass graft: 112 cm/s, triphasic Distal anastomosis: 122 cm/s, triphasic Outflow artery (right common femoral artery): 146 cm/s, triphasic RIGHT LEG: Common femoral artery: 136 cm/s, phasicity: Biphasic Profunda femoris artery: 101 cm/s, phasicity: Triphasic Superficial femoral artery (proximal): 100 cm/s, phasicity: Biphasic Superficial femoral artery (mid): 82.6 cm/s, phasicity: Biphasic. Stable calcified plaque Superficial femoral artery (distal): 92.9 cm/s, phasicity: Biphasic. Stable calcified plaque Popliteal artery: 55.9 cm/s, phasicity: Biphasic Posterior tibial artery: 45.3 cm/s, phasicity: Biphasic Peroneal artery: 33.5 cm/s, phasicity: Biphasic Anterior tibial artery: 61 cm/s, phasicity: Biphasic Dorsalis pedis artery: 30.1 cm/s, phasicity:Biphasic LEFT LEG: Common femoral artery: 276 cm/s, phasicity: Biphasic Profunda femoris artery: 53.4 cm/s, phasicity: Biphasic Superficial femoral artery (proximal): 55.2 cm/s, phasicity: Biphasic Superficial femoral artery (mid): 71.3 cm/s, phasicity: Biphasic. Stable calcified plaque Superficial femoral artery (distal): 86.8 cm/s, phasicity: Biphasic. Stable calcified plaque Popliteal artery: 46.1 cm/s, phasicity: Biphasic stable calcified plaque Posterior tibial artery: 49.4 cm/s, phasicity: Biphasic Peroneal artery: 36 cm/s, phasicity: Biphasic ANKLE-BRACHIAL INDEX: Right: 0.82, previously 0.89? Left: 0.89, previously 0.88 ANKLE PRESSURES: Right: PT 120, DP 127 Left: PT?138, DP?128 ANKLE PVR WAVEFORMS: Right: Mildly dampened, unchanged Left: Mildly dampened, unchanged US/US arterial duplex LE BI IMPRESSION: Right leg: Stable, mildly decreased ankle brachial index. Patent arterial flow within the left or right bypass graft. Patent arterial flow throughout the right lower extremity with scattered calcified plaque without significant stenosis Left leg: Stable, mildly decreased ankle brachial index. Patent arterial flow throughout the left lower extremity with scattered calcified plaque without significant stenosis LAUREANO Reference: - >1.4 = calcified vessels - 0.9 - 1.4 = normal - no significant arterial disease - 0.7 - 0.89 = mild peripheral arterial disease - 0.51 - 0.69 = moderate peripheral arterial disease - ? 0.50 = severe peripheral arterial disease - < .30 = critical arterial disease
--- NOTE | ~2023-07-30 | US_ITS ---
EXAMINATION: Noninvasive assessment of the bilateral lower extremities with ARTERIAL DUPLEX and ANKLE BRACHIAL INDICES (ABIs). Arterial duplex evaluation of the abdominal aorta CLINICAL INFORMATION: Peripheral vascular disease. History of femorofemoral bypass graft TECHNIQUE: Duplex Doppler techniques with waveform analysis and measurement of velocities in the abdominal aorta and bilateral iliac arteries. Bilateral common femoral, profunda femoris, superficial femoral, popliteal and tibial arteries were performed. Additionally, ankle pulse volume recordings, ankle pressure measurements and ankle brachial indices were obtained of the lower extremity arterial system bilaterally. The study was performed only at rest. COMPARISON: 01/29/2023 and 03/18/2022 FINDINGS: DIRECT DUPLEX DOPPLER FINDINGS: There is a [id number] femorofemoral bypass graft which is patent on color flow Doppler. Velocity measurements are as follows: Inflow artery (left common femoral artery): 276 cm/s, monophasic Proximal anastomosis: 164 cm/s, triphasic Proximal bypass graft: 127 cm/s, triphasic Mid bypass graft: 105 cm/s, triphasic Distal bypass graft: 112 cm/s, triphasic Distal anastomosis: 122 cm/s, triphasic Outflow artery (right common femoral artery): 146 cm/s, triphasic RIGHT LEG: Common femoral artery: 136 cm/s, phasicity: Biphasic Profunda femoris artery: 101 cm/s, phasicity: Triphasic Superficial femoral artery (proximal): 100 cm/s, phasicity: Biphasic Superficial femoral artery (mid): 82.6 cm/s, phasicity: Biphasic. Stable calcified plaque Superficial femoral artery (distal): 92.9 cm/s, phasicity: Biphasic. Stable calcified plaque Popliteal artery: 55.9 cm/s, phasicity: Biphasic Posterior tibial artery: 45.3 cm/s, phasicity: Biphasic Peroneal artery: 33.5 cm/s, phasicity: Biphasic Anterior tibial artery: 61 cm/s, phasicity: Biphasic Dorsalis pedis artery: 30.1 cm/s, phasicity:Biphasic LEFT LEG: Common femoral artery: 276 cm/s, phasicity: Biphasic Profunda femoris artery: 53.4 cm/s, phasicity: Biphasic Superficial femoral artery (proximal): 55.2 cm/s, phasicity: Biphasic Superficial femoral artery (mid): 71.3 cm/s, phasicity: Biphasic. Stable calcified plaque Superficial femoral artery (distal): 86.8 cm/s, phasicity: Biphasic. Stable calcified plaque Popliteal artery: 46.1 cm/s, phasicity: Biphasic stable calcified plaque Posterior tibial artery: 49.4 cm/s, phasicity: Biphasic Peroneal artery: 36 cm/s, phasicity: Biphasic ANKLE-BRACHIAL INDEX: Right: 0.82, previously 0.89? Left: 0.89, previously 0.88 ANKLE PRESSURES: Right: PT 120, DP 127 Left: PT?138, DP?128 ANKLE PVR WAVEFORMS: Right: Mildly dampened, unchanged Left: Mildly dampened, unchanged US/US LAUREANO complete IMPRESSION: Right leg: Stable, mildly decreased ankle brachial index. Patent arterial flow within the left or right bypass graft. Patent arterial flow throughout the right lower extremity with scattered calcified plaque without significant stenosis Left leg: Stable, mildly decreased ankle brachial index. Patent arterial flow throughout the left lower extremity with scattered calcified plaque without significant stenosis LA[place]ANO Reference: - >1.4 = calcified vessels - 0.9 - 1.4 = normal - no significant arterial disease - 0.7 - 0.89 = mild peripheral arterial disease - 0.51 - 0.69 = moderate peripheral arterial disease - ? 0.50 = severe peripheral arterial disease - < .30 = critical arterial disease
== END 2023-07-30 08:06 | disposition home or self-care (01) ==
LOC: HO.US 08:05
PROVIDERS: PCP Internal Medicine; Visit Provider Surgery Vascular Surgery
DX: I73.9 Peripheral vascular disease, unspecified (principal)
CPT/HCPCS: 93923; 93925

== ENCOUNTER 2023-08-05 15:26 | Outpatient (AMB) | payer MEDICARE, SELFPAY ==
--- NOTE | 2023-08-05 15:32 | A.OFFPC_ITS ---
Vital Signs 08/05/23 15:34 Height 5 ft 11 in Weight 141 lb BMI 19.7 BP 130/70 Blood Pressure Location Lt brachial Position Sitting Pulse 77 Pulse Source Pulse Oximeter Pulse Oximetry (%) 98 Oxygen Delivery Method Room Air Intake Visit Reasons: Chest Pain Administrative Nursing Supervisor Required: No Veterinary Assistant: Not Required per policy Accompanied by: Self / Same As Patient Allergies Penicillins [PCN] Allergy (Intermediate, Verified 08/05/23 15:35) Hives Medication List - Last Reconciled 08/05/23 by Michael Chery MD amlodipine 5 mg PO .@0600 90 days aspirin (Adult Aspirin Regimen) 81 mg PO .@0600 azithromycin (Zithromax) For 250 mg dose pack: take 500 mg today (day 1), then 250 mg for 4 days (days 2-5) PO benzocaine-menthol 15-2.6 mg (Cepacol Sore Throat (benzocaine-menthol)) 1 taniya mucous membrane Q4H PRN cyanocobalamin (vitamin B-12) 500 mcg PO .@1800 finasteride 5 mg PO DAILY hydrochlorothiazide 50 mg PO .@0600 metoprolol succinate ER 50 mg PO DAILY rosuvastatin 40 mg PO DAILY triamcinolone acetonide 0.5% 1 appl topical BID Tobacco use date assessed: 08/05/23 Fall risk assessment: No Falls in past year Last assessed Fall Risk: 08/05/23 Dental Screening Dental Screen Date: 08/05/23 Did you have a dental visit in the last 12 months?: Yes Did you have a dental problem in the last 6 months where you did not have access to dental care?: No Was dental information given to patient?: Patient has dentist HPI Chest Pain HPI Details 68-year-old male smoker with COPD hernandez ry artery disease hyperch olesterolemia peripheral vascular disease coming in for an acute problem. Last seen in June 2023 had COVID-19 infection review of the notes follows up with vascular surgeon had ultrasound of the blood vessels of the leg impression of right leg mildly decreased ankle-brachial index patent arterial flow without significant stenosis, left leg with not significant stenosis. Also received ER note July 15 diagnosis of COVID-19 infection with syncope . Transfer note subarachnoid hemorrhage with chest discomfort. [facility] CT done no Subarachnoid hemorrhage. admitted for syncope but went home against medical advised.07/11 sore throat, thursday covid- antiviral started thursday had chest pain- then passed out- Er visit here and Due to SA - [facility]-- cough still productive. cough - now [facility] Medical History (Updated 08/05/23 @ 16:08 by Michael Chery MD) Subarachnoid hemorrhage Tubular adenoma COVID-19 vaccination refused History of testicular cancer Peripheral arterial disease Hypercholesterolemia Coronary artery disease Tobacco abuse COPD (chronic obstructive pulmonary disease) Hypertension Surgical History H/O heart bypass surgery Hx of colonoscopy Hx of prostate biopsy History of tonsillectomy History of testicular surgery Family History Father No problems noted. Mother No problems noted. Maternal Grandmother Myocardial infarction Brother In good health Sister In good health Son In good health Son In good health Daughter In good health Sister Diabetes Social History Household Members: Spouse Housing: House Are you a primary direct support professional caregiver to a significant other at home: No Do you presently have visiting nurse or other home services: No Alcohol intake: former Comment: aware of trip hazard Patient Tobacco Use Status: Current everyday Tobacco user Tobacco use type: Cigarette Cigarette Packs Per Day: 0.5 Cigarettes Per Day: 8 Years Smoked: 53 years e-Cigarette/Vaping Use: Never Used Second Hand Smoke Exposure: Yes service: No Current occupational status: employed Current occupational exposures/hazards: No Cognitive needs: No Hearing needs: No Vision needs: Yes Questionnaire PHQ-9 Over the last 2 weeks, how often have you been bothered by any of the following problems? 1. Little interest or pleasure in doing things: not at all 2. Feeling down, depressed, or hopeless: several days 3. Trouble falling or staying asleep, or sleeping too much: several days 4. Feeling tired or having little energy: several days 5. Poor appetite or overeating: not at all 6. Feeling bad about yourself - or that you are a failure or have let yourself or your family down: not at all 7. Trouble concentrating on things, such as reading the newspaper or watching television: not at all 8. Moving or speaking so slowly that other people could have noticed. Or the opposite - being so fidgety or restless that you have been moving around a lot more than usual: not at all 9. Thoughts that you would be better off or of hurting yourself in some way: not at all Total score: 3 Depression Screening Interpretation: Positive Depression Screening Done: Yes Source: Developed by Drs. Tad Angel, Jennie Nicole, Tello Mendoza and colleagues, with an educational noemi from [employer]. Thrive Questionnaire Date Thrive assessed: 08/05/23 I am a: Patient What is your living situation today?: I have a steady place to live Within the past 12 months, did the food you bought not last and you didn't have the money to get more?: Never true Within the past 12 months, did you worry whether your food would run out before you got money to buy more?: Never true Do you have trouble paying for medicines?: No Do you have trouble getting transportation to medical appointments?: No Do you have trouble paying your heating and electricity bill?: No Do you have trouble taking care of your child, family member or friend?: No Do you have trouble with day-to-day activities such as bathing, preparing meals, shopping, managing finances, etc.?: No Are you currently unemployed and looking for a job?: No Are you interested in more education?: No Please select the resources that you would like help with: None AUDIT C Alcohol Use Questionnaire (AUDIT-C) 1. How often do you have a drink containing alcohol?: Never 2. How many drinks containing alcohol do you have on a typical day when you are drinking?: 1 or 2 3. How often do you have six or more drinks on one occasion?: Never Total Score: 0 BIANCA-7 AMB Questionnaire BIANCA-7 Date BIANCA - 7 assessed: 08/05/23 Feeling nervous, anxious, or on edge: 0 = Not at all Not being able to stop or control worryin = Not at all Worrying too much about different things: 0 = Not at all Trouble relaxin = Not at all Being so restless that it is hard to sit still: 0 = Not at all Becoming easily annoyed or irritable: 0 = Not at all Feeling afraid as if something awful might happen: 0 = Not at all Total BIANCA-7 score (0-4 normal; 5-9 mild; 10-14 moderate; 15-21 severe): 0 Source: Developed by Drs. Tad Angel, Jennie Nicole, Tello Mendoza and colleagues, with an educational noemi from [employer]. Physical exam (Primary Care) Vital Signs: Last Vital Signs Pulse 77 08/05/23 15:34 BP 130/70 08/05/23 15:34 Pulse Ox 98 08/05/23 15:34 Oxygen Delivery Method Room Air 08/05/23 15:34 BMI result Body Mass Index 19.7 Tobacco/Smoking Status: Tobacco use Status Tobacco use date assessed 08/05/23 08/05/23 15:36 Patient Tobacco Use Status Current everyday Tobacco 08/05/23 15:33 Tobacco use type Cigarette 08/05/23 15:33 e-Cigarette/Vaping Use Never Used 08/05/23 15:33 PHQ-9: PHQ-9 Score PHQ-9: Total score 3 08/05/23 15:36 Depression Screening Interpretation: Positive Thrive Assessment: Date of Thrive Assessment Date Thrive assessed 08/05/23 08/05/23 15:36 Const General: alert; No acute distress Eyes Conjunctivae: conjunctivae normal Resp Other: Decreased breath sounds with wheezing as well as rhonchi bilateral Cardio Rate: regular rate Rhythm: regular rhythm GI Inspection: Yes normal to inspection Extrem General: Yes normal to inspection and No edema Assessment and Plan Assessment & Plan (1) Subarachnoid hemorrhage: Code(s): I60.9 - Nontraumatic subarachnoid hemorrhage, unspecified Plan: A CT scan done in [place] showing subarachnoid hemorrhage but a CT scan repeated in [facility] revealed negative results. Patient is doing fine otherwise (2) COVID-19 virus infection: Code(s): U07.1 - COVID-19 Plan: Resolved (3) Coronary artery disease: Comment: does not have a boat cleaner-sees PCP Dr. Chery & Dr. Veras-vascular(last appt >1yr ago per patient) Code(s): I25.10 - Atherosclerotic heart disease of [place] coronary artery without angina pectoris Qualifiers: Coronary Disease-Associated Artery/Lesion type: [place] artery [place] vs. transplanted heart: [place] heart Associated angina: without angina Qualified Code(s): I25.10 - Atherosclerotic heart disease of [place] coronary artery without angina pectoris Plan: Control the cholesterol, weight, blood pressure, on aspirin (4) Tobacco abuse: Code(s): Z72.0 - Tobacco use Plan: Patient is strongly advised to stop smoking (5) COPD (chronic obstructive pulmonary disease): Code(s): J44.9 - Chronic obstructive pulmonary disease, unspecified Qualifiers: COPD type: emphysema Emphysema type: panlobular Qualified Code(s): J43.1 - Panlobular emphysema Plan: Stop smoking! (6) Hypertension: Code(s): I10 - Essential (primary) hypertension Qualifiers: Hypertension type: essential hypertension Qualified Code(s): I10 - Essential (primary) hypertension Plan: Continue with blood pressure medication. Decrease salt intake and exercise (7) COPD exacerbation: Code(s): J44.1 - Chronic obstructive pulmonary disease with (acute) exacerbation Plan: antibiotic sent , and discussed about using the Symbicort and to rinse mouth after using it Medications: New azithromycin (Zithromax) For 250 mg dose pack: take 500 mg today (day 1), then 250 mg for 4 days (days 2-5) PO 6 tabs 0RF J44.1 - Chronic obstructive pulmonary disease with (acute) exacerbation Refilled metoprolol succinate ER 50 mg PO DAILY 90 tabs 1RF I10 - Essential (primary) hypertension Coding Level of Care Code Est Pt Level 4 (56907) Diagnoses Subarachnoid hemorrhage I60.9 COVID-19 virus infection U07.1 Coronary artery disease involving [place] coronary artery of [place] heart without angina pectoris I25.10 Coronary Disease-Associated Artery/Lesion type: [place] artery [place] vs. transplanted heart: [place] heart Associated angina: without angina Tobacco abuse Z72.0 Panlobular emphysema J43.1 COPD type: emphysema Emphysema type: panlobular Essential hypertension I10 Hypertension type: essential hypertension COPD exacerbation J44.1
[2023-08-05 15:34] VITALS: BP 130/70; PULSE 77; O2SAT 98; BMI 19.7
== END 2023-08-05 16:59 | disposition home or self-care (01) ==
PROVIDERS: PCP Internal Medicine; Visit Provider Internal Medicine
DX: I60.9 Nontraumatic subarachnoid hemorrhage, unspecified (principal); J43.1 Panlobular emphysema; I73.9 Peripheral vascular disease, unspecified; U07.1 COVID-19; I25.10 Atherosclerotic heart disease of native coronary artery without angina pectoris; Z72.0 Tobacco use; I10 Essential (primary) hypertension
CPT/HCPCS: 99214

== ENCOUNTER 2023-08-21 07:31 | Outpatient (REF) | payer MEDICARE, SELFPAY ==
[2023-08-21 07:48] LABS: MANUAL DIFF FLAG NO
[2023-08-21 08:16] LABS: Basophils Absolute Auto 0.1 X10*3/uL (0.0-0.2); Basophils Percent Auto 0.6 % (0-2); Eosinophils Absolute Auto 0.6 X10*3/uL (0.0-0.4); Eosinophils Percent Auto 5.8 % (0-4); Hematocrit 46.2 % (42.0-52.0); Hemoglobin 15.7 g/dl (14.0-18.0); Imm Gran Abs Auto 0.03 X10*3/uL (0.00-0.03); Imm Gran Pct Auto 0.3 % (0.0-0.4); Lymphocytes Percent Auto 20.3 % (20-40); Mean Corpuscular Hemoglobin 29.4 pg (27.0-33.0); Mean Corpuscular Volume 86.5 fL (80.0-98.0); Monocytes Percent Auto 10.1 % (2-11); Neutrophils Absolute Auto 6.1 x10*3/uL (2.0-8.3); Neutrophils Percent Auto 62.9 % (45-73); Platelet Count 242 X10*3/uL (160-400); Red Blood Count 5.34 X10*6/uL (4.60-5.80); Red Cell Distribution Width 13.5 % (11.0-16.0); White Blood Count 9.7 X10*3/uL (4.8-10.8)
[2023-08-21 09:00] LABS: Alanine Aminotransferase 17 U/L (0-40); Albumin Level 4.1 g/dL (3.5-5.0); Alkaline Phosphatase 95 U/L (39-117); Anion Gap 15 (12-20); Aspartate Amino Transferase 20 U/L (5-37); Bilirubin Total 0.5 mg/dL (0.0-1.0); Blood Urea Nitrogen 33 mg/dL (9-16); Calcium 9.7 mg/dL (8.4-10.2); Carbon Dioxide 31 mmol/L (22-29); Chloride 96 mmol/L (96-108); Cholesterol 145 mg/dL (<200); Estimated Glomerular Filt Rate 35; Glucose Random 105 mg/dL (60-115); HDL Cholesterol 41 mg/dL (>40); LDL Cholesterol Calculated 84 mg/dL (<100); Potassium 3.1 mmol/L (3.3-5.1); Sodium 139 mmol/L (135-145); Total Protein 7.6 g/dL (6.5-8.0); Triglycerides 101 mg/dL (<150)
[2023-08-21 09:09] LABS: Prostate Specific Antigen 3.53 ng/mL (<0.05-4.0)
[2023-08-21 09:10] LABS: Free T4 (Free Thyroxine) 1.06 ng/dL (0.71-1.85)
[2023-08-21 09:14] LABS: Thyroid Stimulating Hormone 3.66 uIU/mL (0.32-4.0)
[2023-08-21 09:22] LABS: Folate 6.2 ng/mL (> or = 4.0); Prostate Specific Antigen Scr 3.77 ng/mL (<0.05-4.0); Vitamin B12 1044 pg/mL (200-900)
[2023-08-21 11:49] LABS: COVID-19 Test Negative (Negative); IDNOW Serial# 6674DD1D
== END 2023-08-21 07:32 | disposition home or self-care (01) ==
LOC: HO.LAB 07:31
PROVIDERS: Absent Provider Urology; PCP Internal Medicine; Visit Provider Internal Medicine
DX: Z12.5 Encounter for screening for malignant neoplasm of prostate (principal); C61 Malignant neoplasm of prostate; I25.10 Atherosclerotic heart disease of native coronary artery without angina pectoris; E78.00 Pure hypercholesterolemia, unspecified; U07.1 COVID-19
CPT/HCPCS: 36415; 80053; 80061; 82607; 82746; 84153; 84439; 84443; 85025; 87635

== ENCOUNTER 2023-08-27 07:30 | Day surgery (SDC) | payer MEDICARE, SELFPAY ==
[2023-08-25 15:15] VITALS: BMI 19.7
[2023-08-27 07:58] VITALS: BP 191/111; RESP 18; TEMP 36.4; O2SAT 95
[2023-08-27 08:15] VITALS: BP 179/95
--- NOTE | 2023-08-27 08:22 | MHC.SHP ---
Pre-Procedural Eval Section A - 24 Hr Update-Section A only Date of Service: 08/27/23 Section B - Complete if H&P > 30 days Chief Complaint: Benign neoplasm, unspecified site Relevant Family History (Specify if Yes): No Relevant Social History: Tobacco Use Present Medications: see Short Stay Collaborative assessment Medical History: Significant History (COPD (chronic obstructive pulmonary disease) Coronary artery disease COVID-19 vaccination refused History of testicular cancer Hypercholesterolemia Hypertension Peripheral arterial disease Tobacco abuse Tubular adenoma) History of Previous Operations: Relevant previous surgery/procedure and date(s) (History of testicular surgery History of tonsillectomy Hx of colonoscopy Hx of prostate biopsy) Allergies: Allergies Allergy/AdvReac Type Severity Reaction Status Date / Time Penicillins [PCN] Allergy Intermediate Hives Verified 08/05/23 15:35 Review of Systems Sugical H&P ROS: Negative: Constitution, Cardiovascular, Respiratory, Neurological, Psychiatric, Hem-Onc, Allergic/Immunologic, Gastrointestinal, Genitourinary, Musculoskeletal, Integumentary, Endocrine and Eyes/Ears/Nose/Throat Exam Surgical H&P Exam: Normal: HEENT, Normal: Heart, Normal: Lungs, Normal: Extremities, Normal: Abdomen, Normal: Skin and Normal: Neurological Plan Diagnosis/Plan: Unchanged I have reviewed the history and physical and performed a pertinent physical examination on my patient. No changes have occurred unless specified. Time Spent With Patient Time: Total time managing care of this patient today ____ minutes.
[2023-08-27] MEDS: Lactated Ringers 1,000 ML 50 ML IVCONT (08:39)
[2023-08-27] MEDS: Albuterol Sulfate (0.083%) 2.5 MG/3 ML VIAL.NEB INHALE (08:40)
--- NOTE | 2023-08-27 09:13 | HO.ANESPROP2 ---
HPI - Anesthesia Eval Consult details Narrative: 68 yo male patient for Colonoscopy [facility] Active Problems Active Problems: All Active Problems (Updated 08/25/23 @ 15:14 by Giovanna Contreras RN) COPD exacerbation (Acute)- does not use inhaler COVID-19 virus infection (Acute)- 06/2023 Eczema (Acute) Nocturia more than twice per night (Acute) Weak urinary stream (Acute) Impacted cerumen of both ears (Acute) Tubular adenoma of colon (Acute) Status post femorofemoral bypass surgery (Acute) History of arterial bypass of lower extremity (Acute) Positive colorectal cancer screening using Cologuard test (Acute) Peripheral vascular disease (Acute) Colon cancer screening (Acute) Alkaline phosphatase elevation (Acute) Annual physical exam (Acute) Epistaxis (Acute) in Springtime Prostate cancer (Acute) Hypercholesterolemia (Acute) Coronary artery disease (Acute)- denies recent chest pain. Tobacco abuse (Acute)- last cigarette this morning COPD (chronic obstructive pulmonary disease) (Acute) Hypertension (Acute)- BP high this morning- took amlodipine. No HCTZ Past Medical History Medical History Subarachnoid hemorrhage Tubular adenoma COVID-19 vaccination refused History of testicular cancer Peripheral arterial disease Hypercholesterolemia Coronary artery disease Tobacco abuse COPD (chronic obstructive pulmonary disease) Hypertension Family History Family History Father No problems noted. Mother No problems noted. Maternal Grandmother Myocardial infarction Brother In good health Sister In good health Son In good health Son In good health Daughter In good health Sister Diabetes Family history of problems with anesthesia: No Surgical History Surgical History History of surgery Hx of colonoscopy Hx of prostate biopsy History of tonsillectomy History of testicular surgery History of Problems with Anesthesia: No Social History Social History Household Members: Spouse Housing: House Are you a primary field care manager to a significant other at home: No Do you presently have visiting nurse or other home services: No Alcohol intake: former Comment: aware of trip hazard Patient Tobacco Use Status: Current everyday Tobacco user Tobacco use type: Cigarette Cigarette Packs Per Day: 0.5 Cigarettes Per Day: 8 Years Smoked: 53 years e-Cigarette/Vaping Use: Never Used Second Hand Smoke Exposure: Yes Are you DNR?: No Advance Directives: No Advance Directives Information Provided: Yes Recently lost weight without trying: No Nutrition Risks: No Nutritional Risk service: No Current occupational status: employed Current occupational exposures/hazards: No Cognitive needs: No Hearing needs: No Vision needs: Yes Meds Allergies Allergy/AdvReac Type Severity Reaction Status Date / Time Penicillins [PCN] Allergy Intermediate Hives Verified 08/05/23 15:35 Active Medications: Current Medications Albuterol Sulfate (Albuterol Sulfate (0.083%) 2.5 Mg/3 Ml Vial.Neb) 2.5 mg INHALE ONCE PRN PRN Reason: Shortness of Breath/Wheezing Last Admin: 08/27/23 08:40 Dose: 2.5 mg Lactated Ringer's (Lr) 1,000 mls @ 50 mls/hr IVCONT .Q20H ROMAN Last Admin: 08/27/23 08:39 Dose: 50 mls/hr Home Medications Medication Instructions Recorded Confirmed Last Taken Type aspirin 81 mg tablet,delayed 81 mg PO .@0600 03/04/21 08/05/23 08/26/23 History release (Adult Aspirin Regimen) cyanocobalamin (vitamin B-12) 500 mcg PO .@1800 09/25/22 08/05/23 Unknown History 1,000 mcg capsule Exam Height,Weight and Vital Signs: Height 5 ft 11 in Weight 63.957 kg Last Vital Signs Temp 97.5 F 08/27/23 07:58 Resp 18 08/27/23 07:58 BP 179/95 H 08/27/23 08:15 Pulse Ox 95 08/27/23 07:58 O2 Del Method Transtracheal Catheter 08/27/23 08:15 Airway Mallampati Class: II TM Dist: >3cm Neck ROM: Full Loose/Missing/Broken Teeth: Yes (Poor dentition. Some broken teeth. Hypertrophic gums. Some missing teeth. Denies loose teeth) Heart: RRR Lungs: CTAB Assessment and Plan Assessment Anesthesia Assessment: Anesthesia Plan Discussed and Chart Reviewed Final Anesthetic Review Family History of Problems with Anesthesia: No History of Problems with Anesthesia: No NPO: Yes ASA Class: III Final Preanesthetic Review: No Changes in Pt Med Stat, Meds/Allgs Chart Reviewed, Consent Obtained/Reviewed and Anes Risks/Benef Reviewed Patient Risk: Intermediate Procedure Risk: Low Assessment/Block/Sedation in SS: Assess/Block/Sedation-SS Anesthetic Plan Anesthetic Plan: MAC: and TIVA Disposition: Standard PACU
--- NOTE | 2023-08-27 09:26 | P.OP_ITS ---
Operative Note Operative Note Date of Service: 08/27/23 Narrative: Operative Information Procedure Description: Colonoscopy Indication: screening Anesthesia: MAC COLONOSCOPY Instrument: Olympus variable stiffness pediatric scope 190L Colonoscopy Monitoring: Vital signs and clinical assessment, continuous EKG monitoring, Pulse oximetry, Carbon Dioxide monitoring and blood pressure monitoring were done throughout the procedure. Colon withdrawal time was 13 minutes. Procedure: The patient was placed in the left lateral decubitis position and pre-procedure medications were administered. After a digital rectal examination of the ano-rectum, the video colonoscope was inserted into the rectum and advanced through the colon to the cecum/TI. The colonoscope was slowly withdrawn in a retrograde panoramic fashion and the colon mucosa was carefully examined including a retroflexed view of the rectum. Findings and interventions are described below. Procedure Difficulty: easy Findings: Terminal Ileum-normal Cecum:normal Ascending Colon: 5-7 mm sessile polyp removed with cold forceps Transverse Colon - x 2 sessile polyps 10 mm noted. One removed with cold snare and the other was lifted with eleview and removed with cold snare Descending Colon:normal Sigmoid Colon: 10 mm sessile polyp removed with cold snare Rectum: Retroflexion with small internal hemorrhoids, grade I Anorectum - normal Colon preparation: [place] Bowel Preparation Scale Right colon; 2 Transverse colon: 2 Left colon; 2 (0 = Unprepared colon segment with mucosa not seen due to solid stool that cannot be cleared. 1 = Portion of mucosa of the colon segment seen, but other areas of the colon segment not well seen due to staining, residual stool and/or opaque liquid. 2 = Minor amount of residual staining, small fragments of stool and/or opaque liquid, but mucosa of colon segment seen well. 3 = Entire mucosa of colon segment seen well with no residual staining, small fragments of stool or opaque liquid) Impression and Post Procedure Diagnosis: polyps internal hemorrhoids Plan: High fiber diet leaflet Avoid straining at stool, epsom salts and sitz bath, anusol supps or cream Repeat Colonoscopy in 3-4 years or earlier if clinically indicated Above findings were reviewed with the patient and relevant handouts were provided if indicated.
[2023-08-27 10:05] VITALS: BP 134/74; PULSE 63; RESP 16; TEMP 36.5; O2SAT 98
[2023-08-27 10:20] VITALS: BP 155/86; PULSE 66; RESP 16; O2SAT 97
[2023-08-27 10:35] VITALS: BP 164/92; PULSE 65; RESP 18; TEMP 36.8; O2SAT 98
== END 2023-08-27 11:01 | disposition home or self-care (01) ==
PROVIDERS: PCP Internal Medicine; Visit Provider Internal Medicine Gastroenterology
PROC: 0DJD8ZZ Inspection of Lower Intestinal Tract, Via Natural or Artificial Opening Endoscopic (ICD-10-PCS; CPT 45378; principal; 2023-08-27 10:20)
DX: Z12.11 Encounter for screening for malignant neoplasm of colon (principal); D12.2 Benign neoplasm of ascending colon; K64.8 Other hemorrhoids; Z86.010 Personal history of colon polyps; I10 Essential (primary) hypertension; E78.00 Pure hypercholesterolemia, unspecified; J44.9 Chronic obstructive pulmonary disease, unspecified; Z85.47 Personal history of malignant neoplasm of testis; Z85.46 Personal history of malignant neoplasm of prostate; F17.210 Nicotine dependence, cigarettes, uncomplicated; Z79.82 Long term (current) use of aspirin; Z79.02 Long term (current) use of antithrombotics/antiplatelets; Z79.899 Other long term (current) drug therapy
CPT/HCPCS: 45385; 45380; 45381; 88305; J2704

== ENCOUNTER → 2023-08-27 07:30 | Outpatient (BNV) | payer MEDICARE, SELFPAY | PROVIDERS: PCP Internal Medicine; Visit Provider Internal Medicine Gastroenterology | DX: Z12.11 Encounter for screening for malignant neoplasm of colon (principal); D12.2 Benign neoplasm of ascending colon; D12.3 Benign neoplasm of transverse colon; D12.5 Benign neoplasm of sigmoid colon; K64.0 First degree hemorrhoids | CPT/HCPCS: 45380; 45381; 45385 ==

== ENCOUNTER 2023-09-03 11:21 | Outpatient (AMB) | payer MEDICARE, SELFPAY ==
[2023-09-03 11:24] VITALS: BP 144/82; PULSE 66; BMI 19.5
--- NOTE | 2023-09-03 11:24 | MHC.OFFVIS ---
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 Reports he can walk several blocks with no difficulties. He does have some generalized hip and body pain. He has lost significant amount of weight since he had COVID this past June. He is being maintained on aspirin and high-dose statin. [facility] Medical History Subarachnoid hemorrhage Tubular adenoma COVID-19 vaccination refused History of testicular cancer Peripheral arterial disease Hypercholesterolemia Coronary artery disease Tobacco abuse COPD (chronic obstructive pulmonary disease) Hypertension Surgical History History of surgery Hx of colonoscopy Hx of prostate biopsy History of tonsillectomy History of testicular surgery Family History Father No problems noted. Mother No problems noted. Maternal Grandmother Myocardial infarction Brother In good health Sister In good health Son In good health Son In good health Daughter In good health Sister Diabetes Social History Household Members: Spouse Housing: House Are you a primary critical care physician to a significant other at home: No Do you presently have visiting nurse or other home services: No Alcohol intake: former Comment: aware of trip hazard Patient Tobacco Use Status: Current everyday Tobacco user Tobacco use type: Cigarette Cigarette Packs Per Day: 0.5 Cigarettes Per Day: 8 Years Smoked: 53 years e-Cigarette/Vaping Use: Never Used Second Hand Smoke Exposure: Yes service: No Current occupational status: employed Current occupational exposures/hazards: No Cognitive needs: No Hearing needs: No Vision needs: Yes Review of Systems Const All systems reviewed & are unremarkable except as noted in HPI and below Reports no additional complaints ENT Reports Normal hearing present Card Denies chest pain, Denies chest pain at rest, Denies chest pain with activity and Denies pedal edema Resp Denies cough GI Denies abdominal pain Musc Denies abnormal gait, Denies muscle cramps and Denies radiating pain into limb Skin/Breast Denies skin ulcer and Denies wounds Neuro Reports Normal hearing present and Denies abnormal gait Psych Reports no additional complaints Physical Exam Vital Signs: Last Vital Signs Pulse 66 09/03/23 11:24 BP 144/82 H 09/03/23 11:24 BMI result Body Mass Index 19.5 Const General: cooperative, healthy appearing and comfortable Orientation/consciousness: oriented to person, oriented to place and oriented to time HEENT Head: Yes normal to inspection Neck Neck: Yes normal visual inspection Carotids: no bruits Chest Chest palpation & inspection: normal inspection of the chest Resp Effort & Inspection: normal respiratory effort and able to speak in complete sentences Auscultation: clear to auscultation bilaterally, no crackles, no rales, no rhonchi and no wheezes Cardio Rate: regular rate Rhythm: regular rhythm Heart sounds: S1 normal heart sound present and S2 normal heart sound present Bruits: no carotid bruits Peripheral pulses: Peripheral pulses 2+ throughout GI Inspection: Yes normal to inspection Skin Wounds: no wounds Hair: normal Neuro General: oriented to person, oriented to place and oriented to time Cranial nerves: Yes CN's II-XII intact bilaterally and Yes Normal hearing present Cognition (Neuro): normal cognition Motor exam (neuro): 5/5 motor strength present throughout Extrem Other: venous exam: No significant superficial varicosities or spider telangiectasias, minimal edema General: No clubbing, No cyanosis and No edema Psych Appearance: grossly normal Mental Status: mental status grossly normal Speech and movement: Normal speech and movement present Results Reviewed Results Reviewed: Noninvasive arterial testing dated 07 30 2023 demonstrates right and left with biphasic flow LAUREANO on the right is 0.82 and on the left of 0.89 with fem-fem bypass patent. Written report and images were reviewed. Assessment & Plan Assessment & Plan (1) Peripheral vascular disease: Comment: 03/24/2018 - diagnostic angiogram 11/03/2022 - femoral to femoral bypass Code(s): I73.9 - Peripheral vascular disease, unspecified Plan: In short patient appears to be doing extremely well status post fem-fem bypass. Appears to be stable from our perspective. We did discuss risk factor modification Will plan for follow-up in approximately 1 year's time. Thank you for allowing us to assist in his care. Orders: Orders US arterial duplex LE BI 364 Days I73.9 - Peripheral vascular disease, unspecified Coding Level of Care Code Est Pt Level 4 (77537) Diagnoses Peripheral vascular disease I73.9
== END 2023-09-04 07:46 | disposition home or self-care (01) ==
PROVIDERS: PCP Internal Medicine; Visit Provider Surgery Vascular Surgery
DX: I73.9 Peripheral vascular disease, unspecified (principal)
CPT/HCPCS: 99213

== ENCOUNTER → 2023-09-03 11:21 | Outpatient (BNVA) | payer MEDICARE, SELFPAY | PROVIDERS: PCP Internal Medicine; Visit Provider Surgery Vascular Surgery | DX: I73.9 Peripheral vascular disease, unspecified (principal) | CPT/HCPCS: 99212 ==

== ENCOUNTER 2023-10-02 08:39 | Outpatient (AMB) | payer MEDICARE, SELFPAY ==
--- NOTE | 2023-10-02 08:51 | MHC.OFFVIS ---
Intake Intake Visit Reasons: 4m/MRI/PSA(set) Intake Note: Patient is Present for Follow Up MRI/PSA Urology Medication: Finasteride Antibiotic Allergies: Penicillins Blood Thinners: Aspirin Allergies Penicillins [PCN] Allergy (Intermediate, Verified 08/05/23 15:35) Hives HPI HPI Comments History of Present Illness Details Zi is a pleasant male. He is a patient of Dr. Chery. He is seen for the following urologic conditions - prostate cancer - testicular cancer 1993 - XRT - lower urinary tract symptoms Four month follow-up PSA remains stable MRI shows 20 g prostate, right posterolateral peripheral zone 1.1 cm PI-RADS 4, adjacent 6 mm PI-RADS 4 lesion Recommend MRI ultrasound fusion biopsy Prostate cancer - low-grade, low volume diagnosis May 2020 PSA 06/16 3.3, 07/17 1.9, 01/16 3.8, 08/19 3.7 Prostate cancer diagnosed by Dr. Bernal PSA at diagnosis 5.7 free 8% Volume 40 gm Histologic type: Adenocarcinoma, acinar Histologic grade: Red[place] score: 3 + 3 = 6 Tumor quantitation: Number cores positive: 2 Right lateral - Total number of cores: 12 % of tissue involved: 1-2% of all tissue examined Low-grade, low volume disease Recommendation active surveillance with finasteride PFSH Medical History Subarachnoid hemorrhage Tubular adenoma COVID-19 vaccination refused History of testicular cancer Peripheral arterial disease Hypercholesterolemia Coronary artery disease Tobacco abuse COPD (chronic obstructive pulmonary disease) Hypertension Surgical History History of surgery Hx of colonoscopy Hx of prostate biopsy History of tonsillectomy History of testicular surgery Family History Father No problems noted. Mother No problems noted. Maternal Grandmother Myocardial infarction Brother In good health Sister In good health Son In good health Son In good health Daughter In good health Sister Diabetes Social History Household Members: Spouse Housing: House Are you a primary family day care provider to a significant other at home: No Do you presently have visiting nurse or other home services: No Alcohol intake: former Comment: aware of trip hazard Patient Tobacco Use Status: Current everyday Tobacco user Tobacco use type: Cigarette Cigarette Packs Per Day: 0.5 Cigarettes Per Day: 8 Years Smoked: 53 years e-Cigarette/Vaping Use: Never Used Second Hand Smoke Exposure: Yes service: No Current occupational status: employed Current occupational exposures/hazards: No Cognitive needs: No Hearing needs: No Vision needs: Yes Review of Systems Const Denies chills and Denies fever(s) Card Reports no additional complaints and Denies syncope Resp Denies cough GI Denies abdominal pain and Denies heartburn Reports as per HPI and Denies change in libido Neuro Denies syncope Psych Denies change in libido Endo Denies change in libido Physical Exam Const General: cooperative, healthy appearing, comfortable and no acute distress Orientation/consciousness: patient oriented x3 HEENT Face and sinus: Yes normal facial exam Mouth: moist mucous membranes Neck Neck: Yes normal visual inspection, Yes full ROM and Yes trachea midline Chest Chest palpation & inspection: normal inspection of the chest Resp Effort & Inspection: normal respiratory effort, able to speak in complete sentences and no respiratory distress GI Inspection: Yes normal to inspection Back/Spine/Pelvis Cervical Spine: normal cervical lordosis Thoracic/Lumbar Spine: thoracic and lumbar spine normal to inspection Skin General skin exam: no rashes or lesions noted Neuro General: patient oriented x3, gait normal, tone normal and moves all extremities Extrem General: Yes normal to inspection and Yes capillary refill normal Assessment & Plan Assessment & Plan (1) Weak urinary stream: Code(s): R39.12 - Poor urinary stream (2) Nocturia more than twice per night: Code(s): R35.1 - Nocturia Plan Risks, benefits and alternatives to therapy were discussed. These include but are not limited to infection, bleeding, damage to local organs and tissues, need for further interventions. Anesthetic risks regarding cardiac arrhythmia, blood clots, and potential mortality were discussed. The patient understands the typical recovery time and the outpatient nature of the procedure. After consideration of these risks the patient gives full informed consent and they wish to move ahead with the procedure. Ultrasound MRI guided prostate biopsy Patient Instructions: Imaging studies, laboratory and physical exam results were discussed and reviewed in detail. No major barriers to patient understanding were identified. An opportunity to ask questions regarding the treatment plan was provided. All questions were answered. The patient expressed understanding and agreement with the above treatment plan. The patient is aware they should contact our office by phone for worsening of their current condition or the appearance of new urologic symptoms. Compliance is encouraged with any medications and followup testing that is ordered. It is a privilege to participate in the urologic care of your patient. If you have any questions or concerns regarding treatment for the above conditions, or other urologic issues, please do not hesitate to contact me. The office telephone contact is [phone]. This note is constructed using voice recognition software. While every effort has been made to ensure accuracy tabulating clerk errors may have been included. Yours sincerely, Dr Alberto Bernal MD, [facility] - Urology Providers of Expert, Compassionate Care for the Genitourinary System Coding Level of Care Code Est Pt Level 4 (10407) Diagnoses Weak urinary stream R39.12 Nocturia more than twice per night R35.1
== END 2023-10-02 09:32 | disposition home or self-care (01) ==
PROVIDERS: PCP Internal Medicine; Visit Provider Urology
DX: R39.12 Poor urinary stream (principal); R35.1 Nocturia
CPT/HCPCS: 99213

== ENCOUNTER → 2023-10-02 08:39 | Outpatient (BNVA) | payer MEDICARE, SELFPAY | PROVIDERS: PCP Internal Medicine; Visit Provider Urology | DX: R39.12 Poor urinary stream (principal); R35.1 Nocturia | CPT/HCPCS: 99212 ==

== ENCOUNTER 2023-11-16 13:36 | Outpatient (AMB) | payer MEDICARE, SELFPAY ==
[2023-11-16 13:44] VITALS: BP 162/98; PULSE 74; O2SAT 98; BMI 19.4
--- NOTE | 2023-11-16 13:44 | AM.OFFVISMDC ---
Intake Vital Signs 11/16/23 13:44 Height 5 ft 11 in Weight 139 lb BMI 19.4 BP 162/98 H Blood Pressure Location Lt brachial Position Sitting Pulse 74 Pulse Source Pulse Oximeter Pulse Oximetry (%) 98 Oxygen Delivery Method Room Air Intake Visit Reasons: AWV G0438 Allergies Penicillins [PCN] Allergy (Intermediate, Verified 11/16/23 13:45) Hives Medication List - Last Reconciled 11/16/23 by Michael Garcia Po, amlodipine 5 mg PO .@0600 90 days aspirin (Adult Aspirin Regimen) 81 mg PO .@0600 benzocaine-menthol 15-2.6 mg (Cepacol Sore Throat (benzocaine-menthol)) 1 taniya mucous membrane Q4H PRN cyanocobalamin (vitamin B-12) 500 mcg PO .@1800 finasteride 5 mg PO DAILY hydrochlorothiazide 25 mg PO .@0600 metoprolol succinate ER 50 mg PO DAILY potassium chloride ER (Klor-Con M) 20 mEq PO BID 4 days rosuvastatin 40 mg PO DAILY triamcinolone acetonide 0.5% 1 appl topical BID HPI AWV G0438 HPI Details 68-year-old male smoker with coronary artery disease COPD, hypertension coming in for an annual well visit. Last seen in July 2023. Patient is up-to-date with colonoscopy August 2023. Patient has seen Urology September 2023 prostate cancer and testicular cancer 1994 status post radiation therapy patient also follows up with vascular surgeon for the peripheral vascular disease and continuing surveillance. Patient did have the colonoscopy done in August 2023 with tubular adenoma. [facility] Medical History Subarachnoid hemorrhage Tubular adenoma COVID-19 vaccination refused History of testicular cancer Peripheral arterial disease Hypercholesterolemia Coronary artery disease Tobacco abuse COPD (chronic obstructive pulmonary disease) Hypertension Surgical History History of surgery Hx of colonoscopy Hx of prostate biopsy History of tonsillectomy History of testicular surgery Family History Father No problems noted. Mother No problems noted. Maternal Grandmother Myocardial infarction Brother In good health Sister In good health Son In good health Son In good health Daughter In good health Sister Diabetes Social History (Updated 11/16/23 @ 14:11 by Michael Chery MD) Household Members: Spouse Housing: House Are you a primary care management specialist to a significant other at home: No Do you presently have visiting nurse or other home services: No Alcohol intake: current Alcohol intake frequency: does not drink Comment: aware of trip hazard 2X A MONTHS 1 BEER Patient Tobacco Use Status: Current everyday Tobacco user Tobacco use type: Cigarette Cigarette Packs Per Day: 0.5 Cigarettes Per Day: 8 Years Smoked: 53 years- 10/PER DAY e-Cigarette/Vaping Use: Never Used Second Hand Smoke Exposure: Yes service: No Current occupational status: employed Current occupational exposures/hazards: No Cognitive needs: No Hearing needs: No Vision needs: Yes Questionnaire Medicare Wellness Checkup [age] What gender do you identify with?: male During the past 4 weeks, how much have you been bothered by emotional problems such as feeling anxious, depressed, irritable, sad or downhearted, and blue?: slightly During the past 4 weeks, has your physical & emotional health limited your social activities with family, friends, neighbors, or groups?: slightly During the past 4 weeks, how much bodily pain have you generally had?: mild pain During the past 4 weeks, was someone available to help you if you needed & wanted help?: yes, quite a bit During the past 4 weeks, what was the hardest physical activity you could do for at least 2 minutes?: heavy Can you get to places out of walking distance without help? (For eg., can you travel alone on buses, taxis or drive your car?): Yes Can you go shopping for groceries or clothes without someone's help?: Yes Can you prepare your own meals?: Yes Can you do your housework without help?: Yes Because of any health problems, do you need the help of another person with your personal care needs such as eating, bathing, dressing or getting around the house?: No Can you handle your own money without help?: Yes During the past 4 weeks, how would you rate your health in general?: fair During the past 4 weeks how have things been going for you?: pretty well Are you having difficulties driving your car?: no Do you always fasten your seat belt when you are in a car?: yes, sometimes During past 4 weeks, have you been bothered by the following: never: Problems using the telephone?, seldom: Falling or dizzy when standing up, sometimes: Trouble eating well? and often: Sexual problems?, Teeth or denture problems? and Tiredness or fatigue? Have you fallen 2 or more times in the past year?: No Are you afraid of falling?: No Are you a smoker?: yes, but I'm not ready to quit During the past 4 weeks, how many drinks of wine, beer, or other alcoholic beverages did you have?: no alcohol at all Do you exercise for about 20 minutes 3 or more times a week?: no, I usually do not exercise this much Have you been given information to help with the following?: no: Hazards in your house that might hurt you? and no: Keeping track of your medications? How often do you have trouble taking medicines the way you have been told to take them?: I always take medicine as prescribed How confident are you that you can control & manage most of your health problems?: somewhat confident What is your race?: White PHQ-9 Over the last 2 weeks, how often have you been bothered by any of the following problems? 1. Little interest or pleasure in doing things: several days 2. Feeling down, depressed, or hopeless: several days 3. Trouble falling or staying asleep, or sleeping too much: nearly every day 4. Feeling tired or having little energy: more than half the days 5. Poor appetite or overeating: several days 6. Feeling bad about yourself - or that you are a failure or have let yourself or your family down: several days 7. Trouble concentrating on things, such as reading the newspaper or watching television: not at all 8. Moving or speaking so slowly that other people could have noticed. Or the opposite - being so fidgety or restless that you have been moving around a lot more than usual: not at all 9. Thoughts that you would be better off or of hurting yourself in some way: not at all Total score: 9 Depression Screening Interpretation: Negative Depression Screening Done: Yes 58145 - PHQ-9 Billing: Yes Source: Developed by Drs. Tad Angel, Jennie Nicole, Tello Mendoza and colleagues, with an educational noemi from [employer]. Review of Systems Const Denies poor appetite and Denies weakness Eyes Denies no additional complaints ENT Reports Normal hearing present, Denies dizziness, Denies nasal congestion, Denies tinnitus and Denies sore throat Card Denies chest pain, Denies syncope, Denies rapid heart rate and Denies dyspnea Resp Denies cough and Denies dyspnea GI Denies change in stool character, Reports constipation, Denies diarrhea, Denies nausea and Denies vomiting Denies dysuria and Denies urinary frequency Neuro Reports Normal hearing present, Denies confusion, Denies dizziness, Denies syncope and Denies weakness Psych Denies confusion Physical Exam Vital Signs: Last Vital Signs Pulse 74 11/16/23 13:44 BP 162/98 H 11/16/23 13:44 Pulse Ox 98 11/16/23 13:44 Oxygen Delivery Method Room Air 11/16/23 13:44 BMI result Body Mass Index 19.4 Const General: No confusion Orientation/consciousness: No confusion HEENT Head: Yes normocephalic Ears: external ears normal and TM's normal bilaterally Face and sinus: Yes normal facial exam Mouth: moist mucous membranes Throat: Yes tonsils normal Eyes Conjunctivae: conjunctivae normal Pupils: Equal, round and reactive pupils present and Pupil accommodation reflex normal Direct Ophthalmoscopy: normal light reflex Neck Neck: No lymphadenopathy Thyroid: Thyroid normal Chest Chest palpation & inspection: normal inspection of the chest Resp Effort & Inspection: normal respiratory effort and no audible wheezes Auscultation: clear to auscultation bilaterally, no crackles, no wheezes and lung sounds not diminished Cardio Rate: regular rate Rhythm: regular rhythm Peripheral pulses: radial pulses present and dorsalis pedis present GI Palpation (GI): no masses Auscultation: normal bowel sounds and normoactive bowel sounds Rectal Exam - Male: Yes deferred Skin General skin exam: no rashes or lesions noted Rashes: no rashes Neuro General: No confusion Cranial nerves: Yes Equal, round and reactive pupils present and Yes Normal hearing present Cognition (Neuro): normal cognition Gait exam (Neuro): Normal gait present Motor exam (neuro): 5/5 motor strength present throughout Deep tendon reflexes (DTR's): Right brachioradialis reflex intensity grade: 2+, Left brachioradialis reflex intensity grade: 2+, Right patellar reflex intensity grade: 2+ and Left patellar reflex intensity grade: 2+ Extrem General: No edema Assessment & Plan Assessment & Plan (1) Medicare annual wellness visit, subsequent: Code(s): Z00.00 - Encounter for general adult medical examination without abnormal findings Plan: Keep well hydrated, eat healthy, keep active and have adequate sleep. (2) Tobacco abuse: Code(s): Z72.0 - Tobacco use Plan: Patient is strongly advised to stop smoking! (3) COPD (chronic obstructive pulmonary disease): Code(s): J44.9 - Chronic obstructive pulmonary disease, unspecified Qualifiers: COPD type: emphysema Emphysema type: panlobular Qualified Code(s): J43.1 - Panlobular emphysema Plan: Stable, stop smoking! (4) Hypertension: Code(s): I10 - Essential (primary) hypertension Qualifiers: Hypertension type: essential hypertension Qualified Code(s): I10 - Essential (primary) hypertension Plan: Continue with blood pressure medication. Decrease salt intake and exercise presently taking metoprolol 50 mg once a day hydrochlorothiazide 25 mg once a day and amlodipine 5 mg once a day (5) Coronary artery disease: Comment: saw [facility] pre-femoral/femoral bypass surgery 2022-sees PCP Dr. Chery & Dr. Veras-vascular Code(s): I25.10 - Atherosclerotic heart disease of [place] coronary artery without angina pectoris Qualifiers: Associated angina: without angina Coronary Disease-Associated Artery/Lesion type: [place] artery [place] vs. transplanted heart: pic[place]une heart Qualified Code(s): I25.10 - Atherosclerotic heart disease of [place] coronary artery without angina pectoris Plan: Control the cholesterol, weight, blood pressure, patient on aspirin 81 mg once a day (6) Hypercholesterolemia: Code(s): E78.00 - Pure hypercholesterolemia, unspecified Plan: Avoid fried foods, chicken skin, eggs, butter margarine, pastries and meat. Be it pork or beef they have a lot of cholesterol LDL goal of less than 70 and triglyceride of less than 150. (7) Prostate cancer: Code(s): C61 - Malignant neoplasm of prostate Plan: Patient follows up with urology and on surveillance (8) Peripheral vascular disease: Comment: 03/24/2018 - diagnostic angiogram 11/03/2022 - femoral to femoral bypass Code(s): I73.9 - Peripheral vascular disease, unspecified Plan: Patient follows up with vascular surgeon, (9) Hypokalemia: Code(s): E87.6 - Hypokalemia Plan: On potassium will need retesting (10) Renal insufficiency: Code(s): N28.9 - Disorder of kidney and ureter, unspecified Plan: Keep well hydrated avoid NSAIDs will need retesting (11) Impacted cerumen of both ears: Code(s): H61.23 - Impacted cerumen, bilateral Plan: will need to irrigate Orders: Orders Comprehensive Met. Panel Today N28.9 - Disorder of kidney and ureter, unspecified Complete Blood Count Auto Diff Today N28.9 - Disorder of kidney and ureter, unspecified Thyroid Stimulating Hormone Today N28.9 - Disorder of kidney and ureter, unspecified Free T4 (Free Thyroxine) Today N28.9 - Disorder of kidney and ureter, unspecified Referrals Speech and Hearing Referral H91.90 - Unspecified hearing loss, unspecified ear Medications: Changed From metoprolol succinate ER 50 mg PO DAILY 90 tabs 1RF I10 - Essential (primary) hypertension To metoprolol succinate ER 100 mg PO DAILY 30 tabs 3RF I10 - Essential (primary) hypertension Quality Reporting (2019) Depression/Bipolar (159/160/161/177) PHQ-9: Total score: 9 Coding Level of Care Code Medicare Subsequent (G0439) Diagnoses Medicare annual wellness visit, subsequent Z00.00 Tobacco abuse Z72.0 Panlobular emphysema J43.1 COPD type: emphysema Emphysema type: panlobular Essential hypertension I10 Hypertension type: essential hypertension Coronary artery disease involving [place] coronary artery of [place] heart without angina pectoris I25.10 Associated angina: without angina Coronary Disease-Associated Artery/Lesion type: [place] artery [place] vs. transplanted heart: [place] heart Hypercholesterolemia E78.00 Prostate cancer C61 Peripheral vascular disease I73.9 Hypokalemia E87.6 Renal insufficiency N28.9 Impacted cerumen of both ears H61.23
== END 2023-11-16 14:35 | disposition home or self-care (01) ==
LOC: HO.HMGH 13:41
PROVIDERS: PCP Internal Medicine; Visit Provider Internal Medicine
DX: Z00.00 Encounter for general adult medical examination without abnormal findings (principal); J43.1 Panlobular emphysema; C61 Malignant neoplasm of prostate; I73.9 Peripheral vascular disease, unspecified; Z72.0 Tobacco use; I10 Essential (primary) hypertension; I25.10 Atherosclerotic heart disease of native coronary artery without angina pectoris; E78.00 Pure hypercholesterolemia, unspecified; E87.6 Hypokalemia; N28.9 Disorder of kidney and ureter, unspecified; H61.23 Impacted cerumen, bilateral
CPT/HCPCS: G0439

== ENCOUNTER 2023-12-11 07:05 | Outpatient (REF) | payer MEDICARE, SELFPAY ==
[2023-12-11 07:14] LABS: MANUAL DIFF FLAG NO
[2023-12-11 08:03] LABS: Basophils Absolute Auto 0.1 X10*3/uL (0.0-0.2); Basophils Percent Auto 0.7 % (0-2); Eosinophils Absolute Auto 0.6 X10*3/uL (0.0-0.4); Eosinophils Percent Auto 7.3 % (0-4); Hematocrit 44.4 % (42.0-52.0); Hemoglobin 15.2 g/dl (14.0-18.0); Imm Gran Abs Auto 0.02 X10*3/uL (0.00-0.03); Imm Gran Pct Auto 0.3 % (0.0-0.4); Lymphocytes Absolute Auto 2.2 X10*3/uL (1.2-4.9); Lymphocytes Percent Auto 28.3 % (20-40); Mean Corpuscular HGB Conc 34.2 g/dl (31.0-36.0); Mean Corpuscular Hemoglobin 30.3 pg (27.0-33.0); Mean Corpuscular Volume 88.4 fL (80.0-98.0); Mean Platelet Volume 10.5 fL (9.4-12.4); Monocytes Absolute Auto 0.8 X10*3/uL (0.1-1.2); Monocytes Percent Auto 10.2 % (2-11); Neutrophils Absolute Auto 4.1 x10*3/uL (2.0-8.3); Neutrophils Percent Auto 53.2 % (45-73); Platelet Count 229 X10*3/uL (160-400); Red Blood Count 5.02 X10*6/uL (4.60-5.80); Red Cell Distribution Width 13.7 % (11.0-16.0); White Blood Count 7.6 X10*3/uL (4.8-10.8)
[2023-12-11 09:00] LABS: Alanine Aminotransferase 16 U/L (0-40); Albumin Level 4.3 g/dL (3.5-5.0); Alkaline Phosphatase 83 U/L (39-117); Anion Gap 16 (12-20); Aspartate Amino Transferase 22 U/L (5-37); Bilirubin Total 0.5 mg/dL (0.0-1.0); Blood Urea Nitrogen 39 mg/dL (9-16); Calcium 9.9 mg/dL (8.4-10.2); Carbon Dioxide 28 mmol/L (22-29); Chloride 100 mmol/L (96-108); Estimated Glomerular Filt Rate 24; Glucose Random 105 mg/dL (60-115); Potassium 3.7 mmol/L (3.3-5.1); Sodium 140 mmol/L (135-145); Total Protein 7.7 g/dL (6.5-8.0)
[2023-12-11 09:03] LABS: Free T4 (Free Thyroxine) 0.97 ng/dL (0.71-1.85); Thyroid Stimulating Hormone 4.78 uIU/mL (0.32-4.0)
== END 2023-12-11 07:06 | disposition home or self-care (01) ==
LOC: HO.LAB 07:05
PROVIDERS: PCP Internal Medicine; Visit Provider Internal Medicine
DX: N28.9 Disorder of kidney and ureter, unspecified (principal)
CPT/HCPCS: 36415; 80053; 84439; 84443; 85025

== ENCOUNTER 2023-12-15 15:07 | Outpatient (AMB) | payer MEDICARE, SELFPAY ==
[2023-12-15 15:08] VITALS: BP 160/90; PULSE 68; O2SAT 97; BMI 19.2
--- NOTE | 2023-12-15 15:08 | HO.NEPHOV ---
Vital Signs 12/15/23 15:08 Height 5 ft 11 in Weight 138 lb BMI 19.2 BP 160/90 H Blood Pressure Location Lt brachial Position Sitting Pulse 68 Pulse Source Pulse Oximeter Pulse Oximetry (%) 97 Oxygen Delivery Method Room Air Intake Visit Reasons: Disorder of kidney and ureter Clammer Required: No Accompanied by: Spouse Allergies Penicillins [PCN] Allergy (Intermediate, Verified 12/15/23 15:10) Hives Medication List - Last Reconciled 12/16/23 by Shelton Simmons MD amlodipine 5 mg PO .@0600 90 days aspirin (Adult Aspirin Regimen) 81 mg PO .@0600 benzocaine-menthol 15-2.6 mg (Cepacol Sore Throat (benzocaine-menthol)) 1 taniya mucous membrane Q4H PRN cyanocobalamin (vitamin B-12) 500 mcg PO .@1800 finasteride 5 mg PO DAILY metoprolol succinate ER 100 mg PO DAILY HPI Comments Details: Zi is a 68-year-old man with a history of hypertension and significant vascular disease. He has been referred for the evaluation of chronic kidney disease. Baseline creatinine was about 1.0 1.2 mg/dL back in October of 2022 In June of 2023 creatinine bumped up to 1.6. In July creatinine was 1.9 and as of November 2023 serum creatinine was 2.63 and hence this evaluation. He has been on hydrochlorothiazide 50 mg which was reduced to 25 mg due to hypokalemia. About 3 months ago he was prescribed rosuvastatin. He is stopped taking it about 3 weeks ago because he believes that the renal insufficiency is related to the use of rosuvastatin. However based on the available lab data the renal insufficiency started we before rosuvastatin was started. He has a history of testicular cancer and underwent radiation several years ago. History of prostate cancer and being evaluated by Urology. Waiting for repeat biopsy. History of significant peripheral vascular disease. Status post fem- fem bypass surgery by Dr. Veras. Apparently he had a coronary angiogram in [facility] which was reportedly normal. He has a history of smoking for several years. He continues to smoke cigarettes despite peripheral vascular disease and dyslipidemia. Today he has no shortness of breath no chest pain nausea or vomiting. No diarrhea constipation. No edema. No rash. He does have increased urinary frequency. [facility] [place] Medical History Subarachnoid hemorrhage Tubular adenoma COVID-19 vaccination refused History of testicular cancer Peripheral arterial disease Hypercholesterolemia Coronary artery disease Tobacco abuse COPD (chronic obstructive pulmonary disease) Hypertension Surgical History History of surgery Hx of colonoscopy Hx of prostate biopsy History of tonsillectomy History of testicular surgery Family History Father No problems noted. Mother No problems noted. Maternal Grandmother Myocardial infarction Brother In good health Sister In good health Son In good health Son In good health Daughter In good health Sister Diabetes Social History Household Members: Spouse Housing: House Are you a primary care management coordinator to a significant other at home: No Do you presently have visiting nurse or other home services: No Alcohol intake: current Alcohol intake frequency: does not drink Comment: aware of trip hazard 2X A MONTHS 1 BEER Patient Tobacco Use Status: Current everyday Tobacco user Tobacco use type: Cigarette Cigarette Packs Per Day: 0.5 Cigarettes Per Day: 8 Years Smoked: 53 years- 10/PER DAY e-Cigarette/Vaping Use: Never Used Second Hand Smoke Exposure: Yes service: No Current occupational status: employed Current occupational exposures/hazards: No Cognitive needs: No Hearing needs: No Vision needs: Yes Physical Exam Vital Signs: Last Vital Signs Pulse 68 12/15/23 15:08 BP 160/90 H 12/15/23 15:08 Pulse Ox 97 12/15/23 15:08 Oxygen Delivery Method Room Air 12/15/23 15:08 BMI result Body Mass Index 19.2 Const General: comfortable Nutritional Appearance: well nourished Orientation/consciousness: patient oriented x3 HEENT Head: No normal to inspection Mouth: moist mucous membranes Neck Neck: Yes supple and Yes no JVD Resp Auscultation: clear to auscultation bilaterally, no rales and rub present Cardio Jugular venous distension: no JVD Palpation: no palpable S3 and no palpable S4 Heart sounds: no rubs GI Palpation (GI): Soft to palpation and nontender Percussion: No Fluid wave present General: Yes no CVA tenderness Back/Spine/Pelvis Back: no CVA tenderness Skin General skin exam: no rashes or lesions noted Neuro General: patient oriented x3 Extrem General: Yes no pedal edema and No clubbing Results Reviewed Nephrology Results: Hgb 15.2 g/dl (14.0-18.0) 12/11/23 WBC 7.6 X10*3/uL (4.8-10.8) 12/11/23 Plt Count 229 X10*3/uL (160-400) 12/11/23 Sodium 140 mmol/L (135-145) 12/11/23 Potassium 3.7 mmol/L (3.3-5.1) 12/11/23 Chloride 100 mmol/L (96-108) 12/11/23 Carbon Dioxide 28 mmol/L (22-29) 12/11/23 BUN 39 mg/dL (9-16) H 12/11/23 Creatinine 2.63 mg/dL (0.5-1.4) H 12/11/23 Calcium 9.9 mg/dL (8.4-10.2) 12/11/23 Assessment & Plan Assessment & Plan (1) CKD (chronic kidney disease): Code(s): N18.9 - Chronic kidney disease, unspecified Category: Medical Plan 68-year-old man with a history of longstanding hypertension dyslipidemia and peripheral vascular disease in the setting of chronic smoking has chronic kidney disease. He has a history of prostate cancer. There has been a recent serum creatinine over the last 1 year. Differential diagnosis would include obstructive uropathy. Other possibilities including hypoperfusion from diuretics should be considered. Other less likely possibilities would include glomerular nephritis /interstitial disease. However based on recent lab data this seems unlikely Given the history of present as disease underlying renal artery stenosis should be considered. Workup initiated for CKD. Ordered renal ultrasonogram to assess echogenicity and to rule out hydronephrosis. Based on the kidney sizes I will obtain renal artery Doppler if needed. Discontinue hydrochlorothiazide. Stay on low-sodium diet. Increase p.o. fluid intake. Recheck renal panel in next 2-3 weeks after discontinuing hydrochlorothiazide to see if there is any improvement in renal function. Further urine studies including urine protein creatinine ratio was ordered Encouraged to avoid nephrotoxic agents including NSAIDs. He will benefit from smoking cessation. Again I reassured the dose was statin is not the likely cause for the ROSAURA since the creatinine has been gradually increasing well before starting rosuvastatin. He returned to the office in the next few weeks after the above workup is completed Orders: Orders Creatinine Urine 2 Weeks N05.9 - Unspecified nephritic syndrome with unspecified morphologic changes, N18.9 - Chronic kidney disease, unspecified Basic Metabolic Panel 2 Weeks N18.9 - Chronic kidney disease, unspecified US renal BI 12/15/23 N18.9 - Chronic kidney disease, unspecified Total Protein Urine Random 2 Weeks N18.9 - Chronic kidney disease, unspecified UA and rflx microscopic 2 Weeks N18.9 - Chronic kidney disease, unspecified Parathyroid Hormone Intact 2 Weeks N18.9 - Chronic kidney disease, unspecified Medications: Discontinued hydrochlorothiazide Discontinued Reason: Doctor's Order 25 mg PO .@0600 30 tabs 0RF Coding Level of Care Code New Pt Level 4 (69717) Diagnoses CKD (chronic kidney disease) N18.9
== END 2023-12-15 15:44 | disposition home or self-care (01) ==
PROVIDERS: PCP Internal Medicine; Referring Provider Internal Medicine; Visit Provider Internal Medicine Hypertension Specialist
DX: N18.9 Chronic kidney disease, unspecified (principal)
CPT/HCPCS: 99204

== ENCOUNTER → 2023-12-15 15:07 | Outpatient (BNVA) | payer MEDICARE, SELFPAY | PROVIDERS: PCP Internal Medicine; Referring Provider Internal Medicine; Visit Provider Internal Medicine Hypertension Specialist | DX: I12.9 Hypertensive chronic kidney disease with stage 1 through stage 4 chronic kidney disease, or unspecified chronic kidney disease (principal); N18.9 Chronic kidney disease, unspecified | CPT/HCPCS: 99202 ==

== ENCOUNTER 2023-12-18 14:16 | Outpatient (AMB) | payer MEDICARE, SELFPAY ==
--- NOTE | 2023-12-18 14:16 | A.OFFVIS_ITS ---
Intake Visit Reasons: H&P Targeted Prostate bx Intake Note: Patient is Present for Follow Up on H&P Targeted Prostate: Urology Medication: Finasteride Antibiotic Allergies: Penicillins Blood Thinners: Aspirin Skip Hoist Engineer Required: No Accompanied by: Self / Same As Patient Allergies Penicillins [PCN] Allergy (Intermediate, Verified 12/15/23 15:10) Hives HPI Comments Details: Zi is a pleasant male. He is a patient of Dr. Chery. He is seen for the following urologic conditions - prostate cancer - testicular cancer 1993 - XRT - lower urinary tract symptoms Telemedicine Evaluation 15 min Consultation [email or web address] Jonas Video attempted Planned for targeted biopsy MRI shows 20 g prostate, right posterolateral peripheral zone 1.1 cm PI-RADS 4, adjacent 6 mm PI-RADS 4 lesion Recommend MRI ultrasound fusion biopsy Prostate cancer - low-grade, low volume diagnosis May 2020 PSA 06/16 3.3, 07/17 1.9, 01/16 3.8, 08/19 3.7 Prostate cancer diagnosed by Dr. Bernal PSA at diagnosis 5.7 free 8% Volume 40 gm Histologic type: Adenocarcinoma, acinar Histologic grade: Linden score: 3 + 3 = 6 Tumor quantitation: Number cores positive: 2 Right lateral - Total number of cores: 12 % of tissue involved: 1-2% of all tissue examined Low-grade, low volume disease Recommendation active surveillance with finasteride [facility] Medical History Subarachnoid hemorrhage Tubular adenoma COVID-19 vaccination refused History of testicular cancer Peripheral arterial disease Hypercholesterolemia Coronary artery disease Tobacco abuse COPD (chronic obstructive pulmonary disease) Hypertension Surgical History History of surgery Hx of colonoscopy Hx of prostate biopsy History of tonsillectomy History of testicular surgery Family History Father No problems noted. Mother No problems noted. Maternal Grandmother Myocardial infarction Brother In good health Sister In good health Son In good health Son In good health Daughter In good health Sister Diabetes Social History Household Members: Spouse Housing: House Are you a primary group care worker to a significant other at home: No Do you presently have visiting nurse or other home services: No Alcohol intake: current Alcohol intake frequency: does not drink Comment: aware of trip hazard 2X A MONTHS 1 BEER Patient Tobacco Use Status: Current everyday Tobacco user Tobacco use type: Cigarette Cigarette Packs Per Day: 0.5 Cigarettes Per Day: 8 Years Smoked: 53 years- 10/PER DAY e-Cigarette/Vaping Use: Never Used Second Hand Smoke Exposure: Yes service: No Current occupational status: employed Current occupational exposures/hazards: No Cognitive needs: No Hearing needs: No Vision needs: Yes Review of Systems Const All systems reviewed & are unremarkable except as noted in HPI and below Reports no additional complaints Resp Reports no additional complaints GI Reports no additional complaints Reports as per HPI Musc Reports no additional complaints Physical Exam Telemedicine evaluation Appropriate responses Regular breathing rate and rhythm HEENT Head: Yes normal to inspection Ears: hearing grossly normal bilaterally Eyes General: appearance normal, both eyes and all related structures Neck Neck: Yes normal visual inspection Chest Chest palpation & inspection: normal inspection of the chest Resp Effort & Inspection: normal respiratory effort and able to speak in complete sentences Telehealth Telehealth Telehealth Platform: [employer] Location of provider rendering services: practice address Location of patient: address on file Patient Identification confirmed using: Name, : Yes Telehealth method: video Patient verbally consented to treatment: Yes Patient verbally consented to billing insurance company: Yes Patient informed of any privacy concerns related to visit: Yes Minutes spent on Phone/Video with Pt.: 15 Assessment & Plan Assessment & Plan (1) Prostate cancer: Code(s): C61 - Malignant neoplasm of prostate Category: Medical (2) Nocturia more than twice per night: Code(s): R35.1 - Nocturia Category: Medical Plan Risks, benefits and alternatives to therapy were discussed. These include but are not limited to infection, bleeding, damage to local organs and tissues, need for further interventions. Anesthetic risks regarding cardiac arrhythmia, blood clots, and potential mortality were discussed. The patient understands the typical recovery time and the outpatient nature of the procedure. After consideration of these risks the patient gives full informed consent and they wish to move ahead with the procedure. Targeted prostate biopsy Patient Instructions: Imaging studies, laboratory and physical exam results were discussed and reviewed in detail. No major barriers to patient understanding were identified. An opportunity to ask questions regarding the treatment plan was provided. All questions were answered. The patient expressed understanding and agreement with the above treatment plan. The patient is aware they should contact our office by phone for worsening of their current condition or the appearance of new urologic symptoms. Compliance is encouraged with any medications and followup testing that is ordered. It is a privilege to participate in the urologic care of your patient. If you have any questions or concerns regarding treatment for the above conditions, or other urologic issues, please do not hesitate to contact me. The office telephone contact is [phone]. This note is constructed using voice recognition software. While every effort has been made to ensure accuracy gastroenterology nurse errors may have been included. Yours sincerely, Dr Alberto Bernal MD, [facility] - Urology Providers of Expert, Compassionate Care for the Genitourinary System Coding Level of Care Code Tele Est Pt Level 3 (05233) Diagnoses Prostate cancer C61 Nocturia more than twice per night R35.1
== END 2023-12-18 14:55 | disposition home or self-care (01) ==
LOC: HO.HUSH 14:16
PROVIDERS: PCP Internal Medicine; Visit Provider Urology
DX: C61 Malignant neoplasm of prostate (principal); R35.1 Nocturia
CPT/HCPCS: 99213

== ENCOUNTER → 2023-12-18 14:16 | Outpatient (BNVA) | payer MEDICARE, SELFPAY | PROVIDERS: PCP Internal Medicine; Visit Provider Urology ==

== ENCOUNTER 2023-12-22 14:20 | Outpatient (REF) | payer MEDICARE, SELFPAY ==
--- NOTE | ~2023-12-22 | US_ITS ---
EXAMINATION: US RETROPERITONEAL LIMITED (RENAL ONLY) CLINICAL INFORMATION: Chronic kidney disease, unspecified. COMPARISON: CT angiography of the abdomen, pelvis and lower extremity runoff with contrast 04/04/2022. TECHNIQUE: Real-time imaging of the kidneys. Limited visualization due to bowel gas. FINDINGS: RIGHT KIDNEY: 10.7 x 5.0 x 4.5 cm (SAG x AP x TRV). No hydronephrosis. No renal calculi. Renal cortical thickness is normal. Limited visualization. LEFT KIDNEY: 8.7 x 4.9 x 5.4 cm (SAG x AP x TRV). No hydronephrosis. No renal calculi. Renal cortical thickness is normal. Limited visualization. 0.8 cm lower pole cyst. 1.1 cm medial midpole cyst. 2.5 cm posterior mid pole cyst with benign features. There is no indication for follow up imaging. US/US renal BI IMPRESSION: No hydronephrosis. No renal calculi.
[2023-12-22 15:32] LABS: Appearance Urine Clear; Color Urine Yellow; Glucose Urine UA Negative (Negative); Leukocyte Esterase Urine Negative (Negative); Nitrite Urine Negative (Negative); PH 6.5 (5.0-9.0); Specific Gravity - Urine 1.015 (1.005-1.025); UMIC TRIGGER UA YES; Urine Blood Negative (Negative); Urine Ketones Negative (Negative); Urine Protein 30 (1+) mg/dL (Neg-Trace)
[2023-12-22 15:42] LABS: Creatinine Urine 100.85 mg/dL; Total Protein Urine Random 31 mg/dL (<12)
[2023-12-22 15:49] LABS: Influenza A PCR NEGATIVE (Negative); Influenza B PCR NEGATIVE (Negative); Resp Syncy Virus RNA Qual PCR NEGATIVE (Negative); SARS COV2 PCR INHOUSE NEGATIVE (Negative)
[2023-12-22 15:49] LABS: Parathyroid Hormone Intact 226.4 pg/mL (8.7-77.1)
[2023-12-22 15:53] LABS: Anion Gap 15 (12-20); Blood Urea Nitrogen 39 mg/dL (9-16); Calcium 9.3 mg/dL (8.4-10.2); Carbon Dioxide 24 mmol/L (22-29); Chloride 100 mmol/L (96-108); Estimated Glomerular Filt Rate 25; Glucose Random 102 mg/dL (60-115); Potassium 4.1 mmol/L (3.3-5.1); Sodium 135 mmol/L (135-145)
[2023-12-22 15:56] LABS: Bacteria Urine None Seen (None Seen); Hyaline Casts Urine 0-2 /LPF (0-2); RBC Urine 0-2 /HPF (0-2); Squamous Epithelial Cell Urine 0-2 /HPF (0-2); WBC Urine 0-5 /HPF (0-5)
== END 2023-12-22 14:21 | disposition home or self-care (01) ==
LOC: HO.US 14:20
PROVIDERS: Absent Provider Internal Medicine; PCP Internal Medicine; Visit Provider Internal Medicine Hypertension Specialist
DX: U07.1 COVID-19 (principal); N18.9 Chronic kidney disease, unspecified; N05.9 Unspecified nephritic syndrome with unspecified morphologic changes; J43.1 Panlobular emphysema; C61 Malignant neoplasm of prostate
CPT/HCPCS: 0241U; 36415; 76775; 80048; 81001; 82570; 83970; 84156

== ENCOUNTER 2023-12-26 08:12 | Emergency (ER) | payer MEDICARE, SELFPAY ==
[2023-12-26 08:14] VITALS: BP 152/93; PULSE 57; RESP 19; TEMP 36.6; O2SAT 98; BMI 18.3
[2023-12-26 08:30] VITALS: RESP 16; O2SAT 98
--- NOTE | 2023-12-26 08:34 | PC.NURSE ---
Bleeding from right nare since 0600, ASA use. Report sore throat x 2 weeks. Denies other sx. Nose clamp applied. Bleeding mostly controlled with occasional dribbling
[2023-12-26] MEDS: Tranexamic Acid 1,000 MG/10 ML VIAL 500 MG INTRANASAL (08:52)
--- NOTE | 2023-12-26 09:02 | ED_ITS ---
HPI - General Adult General Chief complaint: General Medical Stated complaint: nose bleed Time Seen by Provider: 12/26/23 08:24 Source: patient, family (), RN notes reviewed and old records reviewed Mode of arrival: ambulatory Limitations: no limitations History of Present Illness ED Provider: ZHANNA ESCOBEDO PA-C HPI narrative: 68-year-old male with pmhx significant for CKD not requiring dialysis, hypertension, HDL, PVD, COPD, CAD status post fem-fem bypass surgery in 2022, current prostate cancer presents to the ED today for evaluation of nosebleed that began abruptly at 6:00 a.m. this morning while he was sleeping. Reports constant bleeding from the right nare he has been unable to control at home. Admits to recurrent nosebleeds over the years. He takes aspirin 81mg daily. Not on AC. Additionally endorses sore throat for the past week. Denies dysphagia or odynophagia. Recently tested negative for COVID, flu, RSV. Denies fevers, chills, nausea or vomiting, cough. Denies decreased p.o. intake. Admits to concern for strep throat. Related Data Home Medications ?Medication ?Instructions ?Recorded ?Confirmed aspirin 81 mg tablet,delayed 81 mg PO .@0600 03/04/21 12/16/23 release (Adult Aspirin Regimen) cyanocobalamin (vitamin B-12) 500 mcg PO .@1800 09/25/22 12/16/23 1,000 mcg capsule Previous Rx's ?Medication ?Instructions ?Recorded benzocaine 15 mg-menthol 2.6 mg 1 taniya mucous membrane Q4H PRN pain 07/14/23 lozenges (Cepacol Sore Throat #16 ea (benzocaine-menthol)) finasteride 5 mg tablet 5 mg PO DAILY Every other day #90 07/14/23 tabs amlodipine 5 mg tablet 5 mg PO .@0600 90 days #90 tabs 10/16/23 metoprolol succinate 100 mg 100 mg PO DAILY #30 tabs 11/16/23 tablet,extended release 24 hr oxymetazoline 0.05 % nasal spray 2 spray intranasal BID PRN nose 12/26/23 (Afrin (oxymetazoline)) bleed 3 days #15 mL Allergies Allergy/AdvReac Type Severity Reaction Status Date / Time Penicillins [PCN] Allergy Intermediate Hives Verified 12/26/23 08:16 Review of Systems 2 Review of Systems: Constitutional: No fever, chills, fatigue, night sweats, weight changes ENT/Mouth: No ear pain, hearing loss, nasal congestion, sinus pain, rhinorrhea, sore throat, +epistaxis Eyes: No eye pain, swelling, redness, vision changes, discharge Cardio: No chest pain, palpitations, ZARATE, orthopnea, peripheral edema Pulm: No SOB, cough, sputum, wheezing, dyspnea, hemoptysis GI: No nausea, vomiting, hematemesis, abdominal pain, diarrhea, constipation, hematochezia, melena : No irregular bleeding, dysuria, frequency, urgency, hesitancy, hematuria, flank pain, urinary flow changes, urinary incontinence or retention MSK: No back pain, neck pain, joint pain, myalgias Skin: No lesions, rashes Neuro: No weakness, numbness, paresthesias, LOC, dizziness, headache Psych: No anxiety/panic, depression, SI/HI, AH/VH All other systems reviewed and are negative. [facility] Past Medical History Attestation statement: The following information was validated with the patient. Source: old records reviewed and nursing notes reviewed Medical History Subarachnoid hemorrhage Tubular adenoma COVID-19 vaccination refused History of testicular cancer Peripheral arterial disease Hypercholesterolemia Coronary artery disease Tobacco abuse COPD (chronic obstructive pulmonary disease) Hypertension Surgical History History of surgery Hx of colonoscopy Hx of prostate biopsy History of tonsillectomy History of testicular surgery Family History Family History Father No problems noted. Mother No problems noted. Maternal Grandmother Myocardial infarction Brother In good health Sister In good health Son In good health Son In good health Daughter In good health Sister Diabetes Social History Social History Household Members: Spouse Housing: House Are you a primary nanny caregiver to a significant other at home: No Do you presently have visiting nurse or other home services: No Alcohol intake: current Alcohol intake frequency: does not drink Comment: aware of trip hazard 2X A MONTHS 1 BEER Patient Tobacco Use Status: Current everyday Tobacco user Tobacco use type: Cigarette Cigarette Packs Per Day: 0.5 Cigarettes Per Day: 8 Years Smoked: 53 years- 10/PER DAY Smoked in Last 30 Days: Yes e-Cigarette/Vaping Use: Never Used Second Hand Smoke Exposure: Yes Use of substances other than those prescribed or required for medical reasons: No Advance Directives: No Advance Directives Information Provided: Yes Do you have a plan to hurt others: No Plan service: No Current occupational status: employed Current occupational exposures/hazards: No Cognitive needs: No Hearing needs: No Vision needs: Yes Physical Exam ED Vital Signs: Vital Signs - 24 hr 12/26/23 08:14 12/26/23 08:30 12/26/23 10:00 Temperature 98 F 98 F Pulse Rate 57 55 Respiratory Rate 19 16 17 Blood Pressure 152/93 H 168/85 H Pulse Oximetry 98 98 97 Oxygen Delivery Method Room Air Room Air Room Air 12/26/23 12:19 12/26/23 13:01 12/26/23 13:20 Temperature 98 F Pulse Rate 54 54 54 Respiratory Rate 17 16 16 Blood Pressure 180/95 H 191/96 H 189/96 H Pulse Oximetry 96 97 98 Oxygen Delivery Method Room Air Room Air Room Air BMI result Body Mass Index 18.3 hypertensive, vitals otherwise wnl Const General: cooperative, healthy appearing, comfortable and no acute distress Orientation/consciousness: patient oriented x3 Limitations: no limitations [facility] Head: Yes normal to inspection, Yes No palpable skull fracture present, Yes normocephalic and Yes atraumatic General nose exam: Normal septum present and Epistaxis present on the right Mouth: Normal oral and palatal mucosa present Throat: Yes posterior oropharynx normal Eyes General: appearance normal, both eyes and all related structures Pupils: Equal, round and reactive pupils present Neck Neck: Yes normal visual inspection, Yes full ROM and Yes no lymphadenopathy Resp Effort & Inspection: normal respiratory effort and able to speak in complete sentences Auscultation: clear to auscultation bilaterally Cardio Rate: regular rate Rhythm: regular rhythm Skin General skin exam: no rashes or lesions noted Neuro General: patient oriented x3 and gait normal Cranial nerves: Yes Equal, round and reactive pupils present Course Course Course Narrative: 0853-- Patient with noted epistaxis from right nare. unable to completely visualize bleed. TXA soaked gauze applied and clampl placed. will re-eval in 20 minutes. 0940-- On re-evaluation, able to visualize anterior bleed in right nare along the septum. Silver nitrate was applied directly to the area of bleeding and cocaine soaked gauze placed. will re-evaluate. CBC and BMP ordered. 1035-- CBC without leukocytosis or left shift. Patient is slightly anemic with H&H 13.6/40.1. No concern for acute blood loss. Chemistry without acute electrolyte abnormality requiring intervention. Elevated BUN to 32. Elevated creatinine to 2.27. This is consistent with his chronic kidney disease and appears around his baseline. > on re-evaluation, cocaine soaked gauze removed from right naris. There is no evidence of rebleeding. Hemostasis achieved. Will monitor patient for 2 hours to assess for rebleeding and re-evaluate. Patient aware and agreeable to this. 1235-- On re-evaluation, patient is well appearing. He has had no further episodes of epistaxis. Bleeding from right nare is well controlled. No blood noted to posterior oropharynx. He has not had any rebleeding since presentation and repeat CBC is not indicated at this time. Afrin sent to pharmacy. Advised patient to use this if he begins to rebleed and then apply pressure for at least 20 minutes. Patient has remained stable throughout ED visit today. Discussed worrisome signs and symptoms and when to return to the ED. All questions answered at this time. Patient is agreeable with disposition and stable for discharge. Medications Administered Discontinued Medications Generic Name Dose Route Start Last Admin Trade Name Jesseq PRN Reason Stop Dose Admin Cocaine HCl 2 ml 12/26/23 09:29 12/26/23 09:38 Cocaine Hcl 4 % 4 Ml Solution TOPICAL 12/26/23 09:30 2 ml ONCE ONE Administration Protocol Silver Nitrate 1 appl 12/26/23 09:31 12/26/23 09:39 Silver Nitrate Applicator Stick..Ea. TOPICAL 12/26/23 09:32 1 appl ONCE ONE Administration Silver Nitrate 1 appl 12/26/23 09:31 12/26/23 09:39 Silver Nitrate Applicator Stick..Ea. TOPICAL 12/26/23 09:32 1 appl ONCE ONE Administration Tranexamic Acid 500 mg 12/26/23 08:48 12/26/23 08:52 Tranexamic Acid 1,000 Mg/10 Ml Vial INTRANASAL 12/26/23 08:49 500 mg ONCE ONE Administration Procedures Epistaxis Control Time Out Performed: Yes Nostril: Yes right Nose prepped with: Yes cocaine 4% Direct inspection: Yes anterior source identified Direct inspection method: Yes nasal speculum and Yes otoscope Clots removed by: Yes manually Epistaxis treatment: Yes TXA soaked gauze and Yes silver nitrate cautery Results of treatment: Yes bleeding controlled Complications: Yes none Medical Decision Making Medical Decision Making [facility] Narrative: 68-year-old male with pmhx significant for CKD not requiring dialysis, hypertension, HDL, PVD, COPD, CAD status post fem-fem bypass surgery in 2022, current prostate cancer presents to the ED today for evaluation of nosebleed that began abruptly at 6:00 a.m. this morning while he was sleeping. Patient slightly hypertensive likely situational. reports taking his amlodipine this morning. does endorse headache that began once the silver nitrate was applied to his nare. no vision changes, chest pain or dizziness. vitals otherwise wnl. On exam, steady bleeding noted from right nare. not clots. no septal hematoma. no obvious deformity. no blood noted to posterior oropharynx. airway patent. Differential diagnosis includes epistaxis, anemia. Unlikely acute blood loss, hypertensive urgency/emergency. Plan for basic labs, hemostasis, and re-evaluation. Differential Diagnosis Differential Diagnoses: The differential diagnosis associated with the presentation includes as above. Admission/Observation Consideration of admission/observation: Escalation of care including admission/observation considered Admission considered on presentation Lab Data [facility] Lab Attestation statement: I reviewed the patient's lab results. as above. 12/26/23 09:18 12/26/23 09:18 Labs: Lab Results 12/26/23 12/26/23 Range/Units 08:59 09:18 WBC 5.4 (4.8-10.8) X10*3/uL RBC 4.50 L (4.60-5.80) X10*6/uL Hgb 13.6 L (14.0-18.0) g/dl Hct 40.1 L (42.0-52.0) % MCV 89.1 (80.0-98.0) fL MCH 30.2 (27.0-33.0) pg MCHC 33.9 (31.0-36.0) g/dl RDW 13.8 (11.0-16.0) % Plt Count 222 (160-400) X10*3/uL MPV 10.1 (9.4-12.4) fL Immature Gran % (Auto) 0.2 (0.0-0.4) % Neut % (Auto) 61.0 (45-73) % Lymph % (Auto) 19.7 L (20-40) % [place] % (Auto) 10.8 (2-11) % Eos % (Auto) 7.2 H (0-4) % Baso % (Auto) 1.1 (0-2) % Lymph # (Auto) 1.1 L (1.2-4.9) X10*3/uL [place] # (Auto) 0.6 (0.1-1.2) X10*3/uL Eos # (Auto) 0.4 (0.0-0.4) X10*3/uL Baso # (Auto) 0.1 (0.0-0.2) X10*3/uL Abs Immat Gran (auto) 0.01 (0.00-0.03) X10*3/uL Absolute Neuts (auto) 3.3 (2.0-8.3) x10*3/uL Absolute Nucleated RBC 0.000 (0.0-0.012) X10*3/uL Nucleated RBC % (auto) 0.0 (0.0-0.2) /100WBC PT 13.9 H (11.1-13.3) SEC INR 1.1 (0.9-1.1) Sodium 139 (135-145) mmol/L Potassium 3.3 (3.3-5.1) mmol/L Chloride 104 (96-108) mmol/L Carbon Dioxide 26 (22-29) mmol/L Anion Gap 12 (12-20) BUN 32 H (9-16) mg/dL Creatinine 2.27 H (0.5-1.4) mg/dL Estim Creat Clear Calc 27.3 Estimated GFR 29 Random Glucose 80 (60-115) mg/dL Calcium 9.4 (8.4-10.2) mg/dL S. pyogenes GrpA JEFFREY Negative (Negative) Independent Historian Clinical information obtained from an independent historian. History obtained from or confirmed by: Spouse () External Record Review External record reviewed: Inpatient record Prescription Management I considered prescription management with: Other (afrin) Chronic Conditions Patient?s care impacted by: Hypertension Social Determinants Patient?s care significantly limited by Social Determinants of Health including: Other Social Determinant of Health Critical Care Time Critical Care Time Critical Care Time: No Discharge Plan Discharge Clinical Impression: Epistaxis Patient Disposition: Home, Self-Care Instructions: Nosebleed (ED) Additional Instructions: You were evaluated in the ED today for nosebleed. Avoid hot beverages for the next 2-3 days as this can increase chance of re- bleeding. Make sure your blood pressure is controlled at home as increased BP can lead to increased/ recurrence of bleeding. If there is recurrence of significant bleeding at home: I recommend blowing your nose to remove the clots before giving yourself several sprays of the oxymetazoline (afrin) spray that I have sent to your pharmacy. After this, apply nasal clamp on your nose again for at least 20 minutes. If after 20 minutes you are no longer bleeding, you do not need to come to the ED. Follow up with ENT (ear, nose, throat) in 2-3 days. You have been provided with a referral. Call them to make an appointment. They will not call you. Return with new or worsening symptoms. In the case of an emergency call 911. Prescriptions: New oxymetazoline [Afrin (oxymetazoline)] 0.05 % spray,non-aerosol 2 spray intranasal BID PRN (Reason: nose bleed) 3 Days Qty: 15 0RF No Action amlodipine 5 mg tablet 5 mg PO .@0600 90 Days Qty: 90 1RF aspirin [Adult Aspirin Regimen] 81 mg tablet,delayed release (DR/EC) 81 mg PO .@0600 Cepacol Sore Throat (lala-men) 15-2.6 mg lozenge 1 taniya mucous membrane Q4H PRN (Reason: pain) Qty: 16 1RF finasteride 5 mg tablet 5 mg PO DAILY Qty: 90 1RF Rx Instructions: to be taken every other day metoprolol succinate 100 mg tablet extended release 24 hr 100 mg PO DAILY Qty: 30 3RF cyanocobalamin (vitamin B-12) 1,000 mcg capsule 500 mcg PO .@1800 Referrals: Delta Byers [Physician] - Michael Chery MD [Primary Care Provider] - Interventions: ED Discharge Assessment Last Done: 12/26/23 13:20 Discharge Date/Time: 12/26/23 13:22 Print Language: Danish
--- NOTE | 2023-12-26 09:05 | PC.NURSE ---
This RN and Zofia WHITE to bedside. TXA applied to cotton in nares at this time in attempt to better control bleeding for better visualization.
--- NOTE | 2023-12-26 09:05 | PC.NURSE ---
Strep Swab obtained/sent
[2023-12-26 09:25] LABS: MANUAL DIFF FLAG NO
[2023-12-26 09:29] LABS: IDNOW Serial# 08D9AD1C; Strep A Nucleic Acid Negative (Negative)
[2023-12-26] MEDS: Cocaine HCl 4 % 4 ML SOLUTION 2 ML TOPICAL (09:38)
[2023-12-26] MEDS: Silver Nitrate Applicator STICK..EA. 1 APPL TOPICAL ×2 (09:39)
--- NOTE | 2023-12-26 09:45 | PC.NURSE ---
Cocaine soaked cotton to right nare applied by Zofia WHITE. Pt NAD, awaiting lab results
[2023-12-26 09:51] LABS: Anion Gap 12 (12-20); Blood Urea Nitrogen 32 mg/dL (9-16); Calcium 9.4 mg/dL (8.4-10.2); Carbon Dioxide 26 mmol/L (22-29); Chloride 104 mmol/L (96-108); Creatinine Clr Calc Pharmacy 27.3; Estimated Glomerular Filt Rate 29; Glucose Random 80 mg/dL (60-115); Potassium 3.3 mmol/L (3.3-5.1); Sodium 139 mmol/L (135-145)
[2023-12-26 09:53] LABS: Basophils Absolute Auto 0.1 X10*3/uL (0.0-0.2); Basophils Percent Auto 1.1 % (0-2); Eosinophils Absolute Auto 0.4 X10*3/uL (0.0-0.4); Eosinophils Percent Auto 7.2 % (0-4); Hematocrit 40.1 % (42.0-52.0); Hemoglobin 13.6 g/dl (14.0-18.0); Imm Gran Abs Auto 0.01 X10*3/uL (0.00-0.03); Imm Gran Pct Auto 0.2 % (0.0-0.4); Lymphocytes Absolute Auto 1.1 X10*3/uL (1.2-4.9); Lymphocytes Percent Auto 19.7 % (20-40); Mean Corpuscular HGB Conc 33.9 g/dl (31.0-36.0); Mean Corpuscular Hemoglobin 30.2 pg (27.0-33.0); Mean Corpuscular Volume 89.1 fL (80.0-98.0); Mean Platelet Volume 10.1 fL (9.4-12.4); Monocytes Absolute Auto 0.6 X10*3/uL (0.1-1.2); Monocytes Percent Auto 10.8 % (2-11); Neutrophils Absolute Auto 3.3 x10*3/uL (2.0-8.3); Platelet Count 222 X10*3/uL (160-400); Red Cell Distribution Width 13.8 % (11.0-16.0); White Blood Count 5.4 X10*3/uL (4.8-10.8)
[2023-12-26 09:59] LABS: INTERNATIONAL NORM RATIO 1.1 (0.9-1.1); Prothrombin Time 13.9 SEC (11.1-13.3)
[2023-12-26 10:00] VITALS: BP 168/85; PULSE 55; RESP 17; TEMP 36.6; O2SAT 97
[2023-12-26 12:19] VITALS: BP 180/95; PULSE 54; RESP 17; O2SAT 96
[2023-12-26 13:01] VITALS: BP 191/96; PULSE 54; RESP 16; O2SAT 97
[2023-12-26 13:20] VITALS: BP 189/96; PULSE 54; RESP 16; TEMP 36.6; O2SAT 98
== END 2023-12-26 13:22 | disposition home or self-care (01) ==
PROVIDERS: Physician Assistant Medical; Emergency Provider Emergency Medicine; PCP Internal Medicine
DX: R04.0 Epistaxis (principal); J02.9 Acute pharyngitis, unspecified; I10 Essential (primary) hypertension; E78.00 Pure hypercholesterolemia, unspecified; F17.210 Nicotine dependence, cigarettes, uncomplicated; Z79.82 Long term (current) use of aspirin
CPT/HCPCS: 30901; 36415; 80048; 85025; 85610; 87651; 99284; C9143

== ENCOUNTER 2023-12-28 07:05 | Day surgery (SDC) | payer MEDICARE, SELFPAY ==
[2023-12-28 07:46] VITALS: BMI 18.0
[2023-12-28 08:01] VITALS: BP 194/98; PULSE 66; RESP 16; TEMP 36.3; O2SAT 97
[2023-12-28] MEDS: Lactated Ringers 1,000 ML 100 ML IVCONT (08:18)
[2023-12-28] MEDS: levoFLOXacin 500 MG TABLET PO (08:19)
--- NOTE | 2023-12-28 08:22 | PC.NURSE ---
anesthesia made aware of right sided nosebleed on Thursday tx'd with cocaine solution, bp 194/98. ok'd to proceed.
--- NOTE | 2023-12-28 08:30 | HO.ANESPROP2 ---
Documented by User: Ryann Fregoso NP 12/25/23 12:13 HPI - Anesthesia Eval Consult details Narrative: 68yo M for Targeted Prostate Needle Biopsy s/p colo 08/2023 with TIVA [facility]. Last office visit 09/2022 for preop clearance prior to vascular surgery. CAD: stable, treated medically. Cath done 2015 CKD: Recent new patient visit with [facility] renal. w/u in progress for etiology. ? FUENTES - ultrasound report pending PAD: s/p fem-fem bypass 2022 PMFSH Active Problems Active Problems: All Active Problems CKD (chronic kidney disease) (Acute) Hearing deficit (Acute) Renal insufficiency (Acute) Hypokalemia (Acute) Medicare annual wellness visit, subsequent (Acute) COPD exacerbation (Acute) Subarachnoid hemorrhage (Acute) COVID-19 virus infection (Acute) Eczema (Acute) COVID-19 (Acute) Nocturia more than twice per night (Acute) Weak urinary stream (Acute) Impacted cerumen of both ears (Acute) Tubular adenoma of colon (Acute) Status post femorofemoral bypass surgery (Acute) History of arterial bypass of lower extremity (Acute) Positive colorectal cancer screening using Cologuard test (Acute) Peripheral vascular disease (Acute) Colon cancer screening (Acute) Alkaline phosphatase elevation (Acute) Annual physical exam (Acute) Epistaxis (Acute) Prostate cancer (Acute) Hypercholesterolemia (Acute) Coronary artery disease (Acute) Tobacco abuse (Acute) COPD (chronic obstructive pulmonary disease) (Acute) Hypertension (Acute) Past Medical History Medical History (Updated 12/28/23 @ 08:08 by Екатерина Tamayo RN) CKD (chronic kidney disease) Subarachnoid hemorrhage Tubular adenoma COVID-19 vaccination refused History of testicular cancer Peripheral arterial disease Hypercholesterolemia Coronary artery disease Tobacco abuse COPD (chronic obstructive pulmonary disease) Hypertension Family History Family History Father No problems noted. Mother No problems noted. Maternal Grandmother Myocardial infarction Brother In good health Sister In good health Son In good health Son In good health Daughter In good health Sister Diabetes Family history of problems with anesthesia: No Surgical History Surgical History History of surgery Hx of colonoscopy Hx of prostate biopsy History of tonsillectomy History of testicular surgery History of Problems with Anesthesia: No Social History Social History Household Members: Spouse Housing: House Are you a primary healthcare or medical to a significant other at home: No Do you presently have visiting nurse or other home services: No Alcohol intake: current Alcohol intake frequency: does not drink Comment: aware of trip hazard 2X A MONTHS 1 BEER Patient Tobacco Use Status: Current everyday Tobacco user Tobacco use type: Cigarette Cigarette Packs Per Day: 0.5 Cigarettes Per Day: 10 Years Smoked: 53 years- 10/PER DAY e-Cigarette/Vaping Use: Never Used Second Hand Smoke Exposure: Yes Use of substances other than those prescribed or required for medical reasons: Yes Substance Use Frequency: Occasionally Are you DNR?: No Advance Directives: No Advance Directives Information Provided: Yes service: No Current occupational status: employed Current occupational exposures/hazards: No Cognitive needs: No Hearing needs: No Vision needs: Yes Meds Allergies Allergy/AdvReac Type Severity Reaction Status Date / Time Penicillins [PCN] Allergy Intermediate Hives Verified 12/28/23 07:46 Home Medications ?Medication ?Instructions ?Recorded ?Confirmed ?Last Taken ?Type aspirin 81 mg tablet,delayed 81 mg PO .@0600 03/04/21 12/28/23 12/28/23 06:00 History release (Adult Aspirin Regimen) cyanocobalamin (vitamin B-12) 500 mcg PO .@1800 09/25/22 12/28/23 12/28/23 06:00 History 1,000 mcg capsule Exam Pertinent Lab Results Pertinent Lab Results: Laboratory Tests 12/11/23 12/22/23 07:13 14:37 WBC 7.6 Hgb 15.2 Hct 44.4 Plt Count 229 Sodium 135 Potassium 4.1 Chloride 100 Carbon Dioxide 24 BUN 39 H Creatinine 2.62 H Assessment and Plan Assessment Anesthesia Assessment: Chart Reviewed Final Anesthetic Review Family History of Problems with Anesthesia: No History of Problems with Anesthesia: No Documented by User: Екатерина Oh DO 12/28/23 08:32 HPI - Anesthesia Eval Consult details Narrative: 68yo M for Targeted Prostate Needle Biopsy s/p colo 08/2023 with TIVA [facility]. Last office visit 09/2022 for preop clearance prior to vascular surgery. CAD: stable, treated medically. Cath done 2015 CKD: Recent new patient visit with [facility] renal. w/u in progress for etiology. ? FUENTES - ultrasound report pending PAD: s/p fem-fem bypass 2022 Recently in ED with epistaxis on 12/26/23. BP 196/98 this morning. Patient has been off his anti-hypertensive medications for a few days. PENDING SALE TO [facility] Past Medical History Medical History (Updated 12/28/23 @ 08:08 by Екатерина Tamayo RN) CKD (chronic kidney disease) Subarachnoid hemorrhage Tubular adenoma COVID-19 vaccination refused History of testicular cancer Peripheral arterial disease Hypercholesterolemia Coronary artery disease Tobacco abuse COPD (chronic obstructive pulmonary disease) Hypertension Family History Family History Father No problems noted. Mother No problems noted. Maternal Grandmother Myocardial infarction Brother In good health Sister In good health Son In good health Son In good health Daughter In good health Sister Diabetes Family history of problems with anesthesia: No Surgical History Surgical History History of surgery Hx of colonoscopy Hx of prostate biopsy History of tonsillectomy History of testicular surgery History of Problems with Anesthesia: No Social History Social History Household Members: Spouse Housing: House Are you a primary healthcare or medical to a significant other at home: No Do you presently have visiting nurse or other home services: No Alcohol intake: current Alcohol intake frequency: does not drink Comment: aware of trip hazard 2X A MONTHS 1 BEER Patient Tobacco Use Status: Current everyday Tobacco user Tobacco use type: Cigarette Cigarette Packs Per Day: 0.5 Cigarettes Per Day: 10 Years Smoked: 53 years- 10/PER DAY e-Cigarette/Vaping Use: Never Used Second Hand Smoke Exposure: Yes Use of substances other than those prescribed or required for medical reasons: Yes Substance Use Frequency: Occasionally Are you DNR?: No Advance Directives: No Advance Directives Information Provided: Yes service: No Current occupational status: employed Current occupational exposures/hazards: No Cognitive needs: No Hearing needs: No Vision needs: Yes Meds Allergies Allergy/AdvReac Type Severity Reaction Status Date / Time Penicillins [PCN] Allergy Intermediate Hives Verified 12/28/23 07:46 Home Medications ?Medication ?Instructions ?Recorded ?Confirmed ?Last Taken ?Type aspirin 81 mg tablet,delayed 81 mg PO .@0600 03/04/21 12/28/23 12/28/23 06:00 History release (Adult Aspirin Regimen) cyanocobalamin (vitamin B-12) 500 mcg PO .@1800 09/25/22 12/28/23 12/28/23 06:00 History 1,000 mcg capsule Exam Exam Date and Time: December 28, 2023 0829 Height,Weight and Vital Signs: Height 6 ft Weight 60.328 kg Vital Signs Temperature 97.3 F 12/28/23 08:01 Pulse Rate 66 12/28/23 08:01 Respiratory Rate 16 12/28/23 08:01 Blood Pressure 194/98 H 12/28/23 08:01 Pulse Oximetry 97 12/28/23 08:01 Oxygen Delivery Method Room Air 12/28/23 08:01 Temperature 97.3 F 12/28/23 08:01 Pulse Rate 66 12/28/23 08:01 Respiratory Rate 16 12/28/23 08:01 Blood Pressure 194/98 H 12/28/23 08:01 Pulse Oximetry 97 12/28/23 08:01 Oxygen Delivery Method Room Air 12/28/23 08:01 Airway Mallampati Class: III TM Dist: >3cm Neck ROM: Full Loose/Missing/Broken Teeth: Yes (poor dentition - many broken and missing teeth) Heart: S1S2 Lungs: CTAB Assessment and Plan Assessment Anesthesia Assessment: Anesthesia Plan Discussed and Chart Reviewed Final Anesthetic Review Family History of Problems with Anesthesia: No History of Problems with Anesthesia: No NPO: Yes ASA Class: III Final Preanesthetic Review: No Changes in Pt Med Stat, Meds/Allgs Chart Reviewed, Consent Obtained/Reviewed and Anes Risks/Benef Reviewed Patient Risk: Intermediate Procedure Risk: Low Anesthetic Plan Anesthetic Plan: MAC: and Agree w/ Assess. and Plan Disposition: Standard PACU
--- NOTE | 2023-12-28 08:37 | MHC.SHP ---
Pre-Procedural Eval Section A - 24 Hr Update-Section A only Date of Service: 12/28/23 The patient is an INPATIENT: No Changes since office visit: No Cold of Flu in the past 2 weeks, No New Medical Problems, No Changes in Medication and No Patient answered all questions The patient has been examined within 24 hours of the surgical procedure. The History & Physical has been completed within 30 days and I have reviewed it.: Yes Section B - Complete if H&P > 30 days Chief Complaint: Malignant neoplasm of prostate Details of Present Illness: US/MRI prostate fusion Allergies: Allergies Allergy/AdvReac Type Severity Reaction Status Date / Time Penicillins [PCN] Allergy Intermediate Hives Verified 12/28/23 07:46 Plan I have reviewed the history and physical and performed a pertinent physical examination on my patient. No changes have occurred unless specified. Time Spent With Patient Time: Total time managing care of this patient today ____ minutes.
--- NOTE | 2023-12-28 09:25 | W.PM.OPN ---
Operative Note Operative Note Date of Service: 12/28/23 Narrative: Preoperative diagnosis: Prostate Cancer Postoperative diagnosis: Prostate Cancer Procedure: 1. transrectal ultrasound-guided pudendal nerve block 2. MRI-US fusion image registration performed 3. transperineal ultrasound-guided prostate biopsy 13 core including targets Surgeon: Dr. Alberto Bernal Anesthetic: Sedation plus local Indications for procedure: Prostate Cancer Gl 3+3 2/12 cores Procedure: After informed consent was verified, the patient was brought into the procedure area. Patient identity confirmed. Perioperative antibiotics confirmed. Safety pause time out performed. Anesthesia performed per protocol. Scrotum taped out of operative area. Iodine prep used. Perineal injection of local anesthetic. Digital guided prostate pudendal nerve block performed with 10 cc of 1% lidocaine. 5cc each side. Combination 10cc iodine with 50cc gel was mixed and placed in the rectum. Ultrasound probe was placed per rectum. Ultrasound probe stabilized on a prostate stepper with attached grid. [employer] software and hardware platform used for US image acquisition, US 3D model creation and MRI-US fusion image overlay. Ultrasound placement was made with external grid calibration for height and prostate diameter in both the transverse and longitudinal planes. Grid A-C covering right prostate and c-F covering left prostate. Numbers 1.0-2.5 covering posterior prostate and 2.5-4.0 covering anterior prostate. Once grid calibration was confirmed prostate ultrasound data acquisition was performed in the transverse fashion. The US images were registered to create model boundaries. A three dimensional ultrasound model was created using [employer] software. The model was reviewed against acquired US images. The planned needle targeting, based on prior acquisition of MRI imaging, was overlaid on the ultrasound images and targets confirmed through ultrasound review. Adjustments were then made between real time and projected model targeting locations. Based on pre-planning evaluation 13 targets had been identified. These included 4 targets PiRADS 4 right apex 1.1cm identified lesion/s. He tolerated the procedure well. Was transferred to stable condition in the PACU. Printed instructions regarding antibiotic use and common side effects such as low-grade temperature, potential infection and bleeding were given Pathology: 13 core prostate biopsy CPT 63540 Modifier 22 for complexity of procedure execution (Perineal prostate biopsy) CPT 59868 US/MRI target fusion and manipulation in realtime
[2023-12-28 09:34] VITALS: BP 136/82; PULSE 67; RESP 16; TEMP 36.5; O2SAT 99
[2023-12-28 09:39] VITALS: BP 124/70; PULSE 62; RESP 18; O2SAT 99
[2023-12-28 09:44] VITALS: BP 150/83; PULSE 62; RESP 18; O2SAT 100
[2023-12-28 09:49] VITALS: BP 149/80; PULSE 58; RESP 18; TEMP 36.5; O2SAT 100
== END 2023-12-28 10:48 | disposition home or self-care (01) ==
PROVIDERS: PCP Internal Medicine; Visit Provider Urology
PROC: (CPT 55700; principal; 2023-12-28 08:30)
DX: C61 Malignant neoplasm of prostate (principal); I10 Essential (primary) hypertension; J44.9 Chronic obstructive pulmonary disease, unspecified; Z88.0 Allergy status to penicillin
CPT/HCPCS: 55700; 88305; J2704; J3010

== ENCOUNTER → 2023-12-28 07:05 | Outpatient (BNV) | payer MEDICARE, SELFPAY | PROVIDERS: PCP Internal Medicine; Visit Provider Urology | DX: C61 Malignant neoplasm of prostate (principal) | CPT/HCPCS: 55700; 76942 ==

== ENCOUNTER 2024-01-05 13:50 | Outpatient (AMB) | payer MEDICARE, SELFPAY ==
[2024-01-05 14:10] VITALS: BP 148/72; PULSE 64
--- NOTE | 2024-01-05 14:10 | HO.NEPHOV ---
Vital Signs 01/05/24 14:10 01/05/24 14:27 BP 148/72 H 130/70 Blood Pressure Location Lt brachial Lt brachial Position Sitting Sitting Pulse 64 Intake Visit Reasons: Disorder of kidney and ureter/ 3 wks fu/ Conf Allergies Penicillins [PCN] Allergy (Intermediate, Verified 12/28/23 07:46) Hives HPI Comments Details: Zi is a 68-year-old man with a history of hypertension and significant vascular disease. He has been referred for the evaluation of chronic kidney disease. Baseline creatinine was about 1.0 1.2 mg/dL back in October of 2022 In June of 2023 creatinine bumped up to 1.6. In July creatinine was 1.9 and as of November 2023 serum creatinine was 2.63 and hence this evaluation. He has been on hydrochlorothiazide 50 mg which was reduced to 25 mg due to hypokalemia. About 3 months ago he was prescribed rosuvastatin. He is stopped taking it about 3 weeks ago because he believes that the renal insufficiency is related to the use of rosuvastatin. However based on the available lab data the renal insufficiency started we before rosuvastatin was started. He has a history of testicular cancer and underwent radiation several years ago. History of prostate cancer and being evaluated by Urology. Waiting for repeat biopsy. History of significant peripheral vascular disease. Status post fem- fem bypass surgery by Dr. Veras. Apparently he had a coronary angiogram in [facility] which was reportedly normal. He has a history of smoking for several years. He continues to smoke cigarettes despite peripheral vascular disease and dyslipidemia. Today he has no shortness of breath no chest pain nausea or vomiting. No diarrhea constipation. No edema. No rash. He does have increased urinary frequency. 01/05/2024. During his last visit hydrochlorothiazide was discontinued. He has no new complaints today. [facility] Medical History (Updated 12/29/23 @ 18:22 by Michael Chery MD) CKD (chronic kidney disease) Subarachnoid hemorrhage Tubular adenoma COVID-19 vaccination refused History of testicular cancer Peripheral arterial disease Hypercholesterolemia Coronary artery disease Tobacco abuse COPD (chronic obstructive pulmonary disease) Hypertension Surgical History History of surgery Hx of colonoscopy Hx of prostate biopsy History of tonsillectomy History of testicular surgery Family History Father No problems noted. Mother No problems noted. Maternal Grandmother Myocardial infarction Brother In good health Sister In good health Son In good health Son In good health Daughter In good health Sister Diabetes Social History Household Members: Spouse Housing: House Are you a primary urgent care physician assistant to a significant other at home: No Do you presently have visiting nurse or other home services: No Alcohol intake: current Alcohol intake frequency: does not drink Comment: aware of trip hazard 2X A MONTHS 1 BEER Patient Tobacco Use Status: Current everyday Tobacco user Tobacco use type: Cigarette Cigarette Packs Per Day: 0.5 Cigarettes Per Day: 10 Years Smoked: 53 years- 10/PER DAY e-Cigarette/Vaping Use: Never Used Second Hand Smoke Exposure: Yes service: No Current occupational status: employed Current occupational exposures/hazards: No Cognitive needs: No Hearing needs: No Vision needs: Yes Physical Exam Vital Signs: Last Vital Signs Pulse 64 01/05/24 14:10 BP 148/72 H 01/05/24 14:10 Const General: comfortable Nutritional Appearance: well nourished Orientation/consciousness: patient oriented x3 HEENT Head: No normal to inspection Mouth: moist mucous membranes Neck Neck: Yes supple and Yes no JVD Resp Auscultation: clear to auscultation bilaterally and no rales Cardio Jugular venous distension: no JVD Palpation: no palpable S3 and no palpable S4 Heart sounds: no rubs GI Palpation (GI): Soft to palpation and nontender Percussion: No Fluid wave present General: Yes no CVA tenderness Back/Spine/Pelvis Back: no CVA tenderness Skin General skin exam: no rashes or lesions noted Neuro General: patient oriented x3 Extrem General: Yes no pedal edema and No clubbing Results Reviewed Nephrology Results: Hgb 13.6 g/dl (14.0-18.0) L 12/26/23 WBC 5.4 X10*3/uL (4.8-10.8) 12/26/23 Plt Count 222 X10*3/uL (160-400) 12/26/23 Sodium 139 mmol/L (135-145) 12/26/23 Potassium 3.3 mmol/L (3.3-5.1) 12/26/23 Chloride 104 mmol/L (96-108) 12/26/23 Carbon Dioxide 26 mmol/L (22-29) 12/26/23 BUN 32 mg/dL (9-16) H 12/26/23 Creatinine 2.27 mg/dL (0.5-1.4) H 12/26/23 Calcium 9.4 mg/dL (8.4-10.2) 12/26/23 PTH Intact 226.4 pg/mL (8.7-77.1) H 12/22/23 Urine Protein 30 (1+) mg/dL (Neg-Trace) H 12/22/23 Urine Creatinine 100.85 mg/dL 12/22/23 Renal US 12/22/23 Assessment & Plan Assessment & Plan (1) CKD (chronic kidney disease): Code(s): N18.9 - Chronic kidney disease, unspecified Category: Medical Plan 68-year-old man with a history of longstanding hypertension dyslipidemia and peripheral vascular disease in the setting of chronic smoking has chronic kidney disease. He has a history of prostate cancer. He has ROSAURA superimposed on CKD. ROSAURA is most likely due to hypoperfusion from diuretics. No evidence obstructive uropathy based on ultrasound Urinary sediments were bland therefore glomerulonephritis or interstitial disease seem unlikely. Given the history of present as disease underlying renal artery stenosis should be considered. Continue to hold hydrochlorothiazide. Stay on low-sodium diet. Increase p.o. fluid intake. Encouraged to avoid nephrotoxic agents including NSAIDs. He will benefit from smoking cessation. Recheck renal panel in the next 4-8 weeks. Blood pressure seems optimal with the current antihypertensive regimen. Coding Level of Care Code Est Pt Level 4 (51420) Diagnoses CKD (chronic kidney disease) N18.9
[2024-01-05 14:27] VITALS: BP 130/70
== END 2024-01-05 14:22 | disposition home or self-care (01) ==
PROVIDERS: PCP Internal Medicine; Visit Provider Internal Medicine Hypertension Specialist
DX: N18.9 Chronic kidney disease, unspecified (principal)
CPT/HCPCS: 99214

== ENCOUNTER → 2024-01-05 13:50 | Outpatient (BNVA) | payer MEDICARE, SELFPAY | PROVIDERS: PCP Internal Medicine; Visit Provider Internal Medicine Hypertension Specialist | DX: I10 Essential (primary) hypertension (principal); N18.9 Chronic kidney disease, unspecified | CPT/HCPCS: 99212 ==

== ENCOUNTER 2024-01-06 14:05 | Outpatient (AMB) | payer MEDICARE, SELFPAY ==
[2024-01-06 14:14] VITALS: BP 164/98; PULSE 63; O2SAT 98; BMI 19.5
--- NOTE | 2024-01-06 14:14 | A.OFFPC_ITS ---
Vital Signs 01/06/24 14:14 Height 5 ft 11 in Weight 140 lb BMI 19.5 BP 164/98 H Blood Pressure Location Lt brachial Position Sitting Pulse 63 Pulse Source Pulse Oximeter Pulse Oximetry (%) 98 Oxygen Delivery Method Room Air Intake Visit Reasons: Ear Cleaning Allergies Penicillins [PCN] Allergy (Intermediate, Verified 01/06/24 14:15) Hives Tobacco use date assessed: 08/05/23 Fall risk assessment: No Falls in past year Last assessed Fall Risk: 01/06/24 Dental Screening Dental Screen Date: 08/05/23 HPI Ear Cleaning HPI Details 68-year-old male smoker with multiple me dical problems coronary artery disease hypercholesterolemia COPD history of prostate cancer and having renal insufficiency coming in for follow-up. Last seen in 11/14/2023 had impacted cerumen and was here for irrigation. Review of the notes has seen Nephrology due to concerns of chronic kidney disease had acute kidney injury superimposed from chronic kidney disease due to diuretics patient was advised to continue with hydrochlorothiazide. Patient also had some prostate biopsy from Neurology showing the cancer. [facility] Medical History (Updated 12/29/23 @ 18:22 by Michael Chery MD) CKD (chronic kidney disease) Subarachnoid hemorrhage Tubular adenoma COVID-19 vaccination refused History of testicular cancer Peripheral arterial disease Hypercholesterolemia Coronary artery disease Tobacco abuse COPD (chronic obstructive pulmonary disease) Hypertension Surgical History History of surgery Hx of colonoscopy Hx of prostate biopsy History of tonsillectomy History of testicular surgery Family History Father No problems noted. Mother No problems noted. Maternal Grandmother Myocardial infarction Brother In good health Sister In good health Son In good health Son In good health Daughter In good health Sister Diabetes Social History Household Members: Spouse Housing: House Are you a primary child care centre director to a significant other at home: No Do you presently have visiting nurse or other home services: No Alcohol intake: current Alcohol intake frequency: does not drink Comment: aware of trip hazard 2X A MONTHS 1 BEER Patient Tobacco Use Status: Current everyday Tobacco user Tobacco use type: Cigarette Cigarette Packs Per Day: 0.5 Cigarettes Per Day: 10 Years Smoked: 53 years- 10/PER DAY Packs Per Year: 0 Packs per year/per ci.00 e-Cigarette/Vaping Use: Never Used Second Hand Smoke Exposure: Yes service: No Current occupational status: employed Current occupational exposures/hazards: No Cognitive needs: No Hearing needs: No Vision needs: Yes Questionnaire PHQ-9 Over the last 2 weeks, how often have you been bothered by any of the following problems? 1. Little interest or pleasure in doing things: several days 2. Feeling down, depressed, or hopeless: several days 3. Trouble falling or staying asleep, or sleeping too much: nearly every day 4. Feeling tired or having little energy: more than half the days 5. Poor appetite or overeating: several days 6. Feeling bad about yourself - or that you are a failure or have let yourself or your family down: several days 7. Trouble concentrating on things, such as reading the newspaper or watching television: not at all 8. Moving or speaking so slowly that other people could have noticed. Or the opposite - being so fidgety or restless that you have been moving around a lot more than usual: not at all 9. Thoughts that you would be better off or of hurting yourself in some way: not at all Total score: 9 Depression Screening Interpretation: Negative Depression Screening Done: Yes [id number] - PHQ-9 Billing: Yes Source: Developed by Drs. Tad Angel, Jennie Nicole, Tello Mendoza and colleagues, with an educational noemi from [employer]. Thrive Questionnaire Date Thrive assessed: 08/05/23 AUDIT C Alcohol Use Questionnaire (AUDIT-C) 1. How often do you have a drink containing alcohol?: Never 2. How many drinks containing alcohol do you have on a typical day when you are drinking?: 1 or 2 3. How often do you have six or more drinks on one occasion?: Never Total Score: 0 BIANCA-7 AMB Questionnaire BIANCA-7 Date BIANCA - 7 assessed: 08/05/23 Source: Developed by Drs. Tad Angel, Jennie Nicole, Tello Mendoza and colleagues, with an educational noemi from [employer]. Physical exam (Primary Care) Vital Signs: Last Vital Signs Pulse 63 01/06/24 14:14 BP 164/98 H 06/12/24 14:14 Pulse Ox 98 01/06/24 14:14 Oxygen Delivery Method Room Air 01/06/24 14:14 BMI result Body Mass Index 19.5 Tobacco/Smoking Status: Tobacco use Status Tobacco use date assessed 08/05/23 01/06/24 14:26 Patient Tobacco Use Status Current everyday Tobacco 01/06/24 14:26 Tobacco use type Cigarette 01/06/24 14:26 e-Cigarette/Vaping Use Never Used 01/06/24 14:26 PHQ-9: PHQ-9 Score PHQ-9: Total score 9 01/06/24 15:29 Depression Screening Interpretation: Negative Thrive Assessment: Date of Thrive Assessment Date Thrive assessed 08/05/23 01/06/24 14:26 Const Other: Bilateral impacted cerumen General: alert; No acute distress Eyes Conjunctivae: conjunctivae normal Resp Auscultation: clear to auscultation bilaterally Cardio Rate: regular rate Rhythm: regular rhythm GI Inspection: Yes normal to inspection Extrem General: Yes normal to inspection and No edema Office Procedures Cerumen Removal From which ear canal was the cerumen removed: bilateral Removal: irrigation, otoscope w/curette, cerumen loop/spoon and other Notes: patient tolerated procedure well, no complications and ear canal clear [id number] Irrigation/Lavage Assessment and Plan Assessment & Plan (1) CKD (chronic kidney disease): Code(s): N18.9 - Chronic kidney disease, unspecified Plan: keep well hydrated seen Nephrology and has taken the diuretic off and will continue to monitor renal function. (2) Impacted cerumen of both ears: Code(s): H61.23 - Impacted cerumen, bilateral Plan: irrigation and scoop used TM intact (3) Tobacco abuse: Code(s): Z72.0 - Tobacco use Plan: advised to stop smoking! (4) Prostate cancer: Comment: 12/2023 biopsy Code(s): C61 - Malignant neoplasm of prostate Plan: will see Urologynext week - prostate biopsy showing cancer . Orders: Orders Comprehensive Met. Panel 2 Months E78.00 - Pure hypercholesterolemia, unspecified Lipid Panel 2 Months E78.00 - Pure hypercholesterolemia, unspecified Coding Level of Care Code Est Pt Level 4 (03595) Diagnoses CKD (chronic kidney disease) N18.9 Impacted cerumen of both ears H61.23 Tobacco abuse Z72.0 Prostate cancer C61 CPT Codes Office Procedure - CPT: 09218-Ppt Irrigation/Lavage ([id number])
== END 2024-01-06 17:36 | disposition home or self-care (01) ==
PROVIDERS: PCP Internal Medicine; Visit Provider Internal Medicine
DX: N18.9 Chronic kidney disease, unspecified (principal); H61.23 Impacted cerumen, bilateral; Z72.0 Tobacco use; C61 Malignant neoplasm of prostate
CPT/HCPCS: 69210; 99214

== ENCOUNTER 2024-01-08 08:20 | Outpatient (REF) | payer MEDICARE, SELFPAY | END 2024-01-08 08:21 | disposition home or self-care (01) | LOC: HO.SH 08:20 | PROVIDERS: Visit Provider Internal Medicine | DX: Z01.118 Encounter for examination of ears and hearing with other abnormal findings (principal); H90.3 Sensorineural hearing loss, bilateral | CPT/HCPCS: 92557; 92567 ==

== ENCOUNTER 2024-01-15 12:54 | Outpatient (AMB) | payer MEDICARE, SELFPAY ==
--- NOTE | 2024-01-15 13:18 | A.OFFVIS_ITS ---
Intake Visit Reasons: Prostate biopsy results Intake Note: Patient presents to the office today for his prostate biopsy results. Urology Meds: finasteride Blood thinners: Aspirin Allergies Penicillins [PCN] Allergy (Intermediate, Verified 01/15/24 13:18) Hives HPI Comments Details: Zi is a pleasant male. He is a patient of Dr. Chery. He is seen for the following urologic conditions - prostate cancer - testicular cancer 1993 - XRT - lower urinary tract symptoms Discussed results Low volume disease Continue to follow Prolaris Second biopsy 01/1724 grade group 2, low volume disease Histologic type: Acinar adenocarcinoma Pope score: 3+3=6 (H & M), 3+4=7 (J) - 50%, 20%, 65% Grade group: 1 (H &M), 2 (J) Tumor quantitation: Number cores positive: 3 Total number of cores: 13 Periprostatic fat inv.: One focus suspicious for extraprostatic extension (Part J) Seminal vesicle inv.: Not identified Perineural inv.: Present LVI: Not identified MRI shows 20 g prostate, right posterolateral peripheral zone 1.1 cm PI-RADS 4, adjacent 6 mm PI-RADS 4 lesion Prostate cancer - low-grade, low volume diagnosis May 2020 PSA 06/16 3.3, 07/17 1.9, 01/16 3.8, 08/19 3.7 Prostate cancer diagnosed by Dr. Bernal PSA at diagnosis 5.7 free 8% Volume 40 gm Histologic type: Adenocarcinoma, acinar Histologic grade: Pope score: 3 + 3 = 6 Tumor quantitation: Number cores positive: 2 Right lateral - Total number of cores: 12 % of tissue involved: 1-2% of all tissue examined Low-grade, low volume disease Recommendation active surveillance with finasteride [facility] Medical History (Updated 12/29/23 @ 18:22 by Michael Chery MD) CKD (chronic kidney disease) Subarachnoid hemorrhage Tubular adenoma COVID-19 vaccination refused History of testicular cancer Peripheral arterial disease Hypercholesterolemia Coronary artery disease Tobacco abuse COPD (chronic obstructive pulmonary disease) Hypertension Surgical History History of surgery Hx of colonoscopy Hx of prostate biopsy History of tonsillectomy History of testicular surgery Family History Father No problems noted. Mother No problems noted. Maternal Grandmother Myocardial infarction Brother In good health Sister In good health Son In good health Son In good health Daughter In good health Sister Diabetes Social History Household Members: Spouse Housing: House Are you a primary insurance healthcare consultant to a significant other at home: No Do you presently have visiting nurse or other home services: No Alcohol intake: current Alcohol intake frequency: does not drink Comment: aware of trip hazard 2X A MONTHS 1 BEER Patient Tobacco Use Status: Current everyday Tobacco user Tobacco use type: Cigarette Cigarette Packs Per Day: 0.5 Cigarettes Per Day: 10 Years Smoked: 53 years- 10/PER DAY e-Cigarette/Vaping Use: Never Used Second Hand Smoke Exposure: Yes service: No Current occupational status: employed Current occupational exposures/hazards: No Cognitive needs: No Hearing needs: No Vision needs: Yes Review of Systems Const Denies chills and Denies fever(s) Card Reports no additional complaints and Denies syncope Resp Denies cough GI Denies abdominal pain and Denies heartburn Reports as per HPI and Denies change in libido Neuro Denies syncope Psych Denies change in libido Endo Denies change in libido Physical Exam Const General: cooperative, healthy appearing, comfortable and no acute distress Orientation/consciousness: patient oriented x3 HEENT Face and sinus: Yes normal facial exam Mouth: moist mucous membranes Neck Neck: Yes normal visual inspection, Yes full ROM and Yes trachea midline Chest Chest palpation & inspection: normal inspection of the chest Resp Effort & Inspection: normal respiratory effort, able to speak in complete sentences and no respiratory distress GI Inspection: Yes normal to inspection Back/Spine/Pelvis Cervical Spine: normal cervical lordosis Thoracic/Lumbar Spine: thoracic and lumbar spine normal to inspection Skin General skin exam: no rashes or lesions noted Neuro General: patient oriented x3, gait normal, tone normal and moves all extremities Extrem General: Yes normal to inspection and Yes capillary refill normal Assessment & Plan Assessment & Plan (1) Nocturia more than twice per night: Code(s): R35.1 - Nocturia Category: Medical (2) Prostate cancer: Comment: 12/2023 biopsy Code(s): C61 - Malignant neoplasm of prostate Category: Medical Plan Two month follow-up PSA Orders: Orders Prostate Specific Antigen 2 Months C61 - Malignant neoplasm of prostate Patient Instructions: Imaging studies, laboratory and physical exam results were discussed and reviewed in detail. No major barriers to patient understanding were identified. An opportunity to ask questions regarding the treatment plan was provided. All questions were answered. The patient expressed understanding and agreement with the above treatment plan. The patient is aware they should contact our office by phone for worsening of their current condition or the appearance of new urologic symptoms. Compliance is encouraged with any medications and followup testing that is ordered. It is a privilege to participate in the urologic care of your patient. If you have any questions or concerns regarding treatment for the above conditions, or other urologic issues, please do not hesitate to contact me. The office telephone contact is [phone]. This note is constructed using voice recognition software. While every effort has been made to ensure accuracy hair or beauty salon manager errors may have been included. Yours sincerely, Dr Alberto Bernal MD, [facility] - Urology Providers of Expert, Compassionate Care for the Genitourinary System Coding Level of Care Code Est Pt Level 3 (01594) Diagnoses Nocturia more than twice per night R35.1 Prostate cancer C61
== END 2024-01-15 13:57 | disposition home or self-care (01) ==
PROVIDERS: PCP Internal Medicine; Visit Provider Urology
DX: R35.1 Nocturia (principal); C61 Malignant neoplasm of prostate
CPT/HCPCS: 99213

== ENCOUNTER → 2024-01-15 12:54 | Outpatient (BNVA) | payer MEDICARE, SELFPAY | PROVIDERS: PCP Internal Medicine; Visit Provider Urology | DX: C61 Malignant neoplasm of prostate (principal); R35.1 Nocturia | CPT/HCPCS: 99212 ==

== ENCOUNTER 2024-03-01 06:28 | Outpatient (REF) | payer MEDICARE, SELFPAY ==
[2024-03-01 07:47] LABS: Alanine Aminotransferase 14 U/L (0-40); Albumin Level 4.2 g/dL (3.5-5.0); Alkaline Phosphatase 88 U/L (39-117); Anion Gap 15 (12-20); Aspartate Amino Transferase 20 U/L (5-37); Bilirubin Total 0.5 mg/dL (0.0-1.0); Blood Urea Nitrogen 41 mg/dL (9-16); Carbon Dioxide 28 mmol/L (22-29); Chloride 99 mmol/L (96-108); Cholesterol 218 mg/dL (<200); Estimated Glomerular Filt Rate 20; Glucose Random 102 mg/dL (60-115); HDL Cholesterol 42 mg/dL (>40); LDL Cholesterol Calculated 153 mg/dL (<100); Potassium 4.3 mmol/L (3.3-5.1); Sodium 138 mmol/L (135-145); Total Protein 7.8 g/dL (6.5-8.0); Triglycerides 119 mg/dL (<150)
[2024-03-01 08:12] LABS: Prostate Specific Antigen 2.71 ng/mL (<0.05-4.0)
== END 2024-03-01 06:29 | disposition home or self-care (01) ==
LOC: HO.LAB 06:28
PROVIDERS: Absent Provider Urology; PCP Internal Medicine; Referring Provider Internal Medicine; Visit Provider Internal Medicine Hypertension Specialist
DX: C61 Malignant neoplasm of prostate (principal); E78.00 Pure hypercholesterolemia, unspecified; Z12.5 Encounter for screening for malignant neoplasm of prostate
CPT/HCPCS: 36415; 80053; 80061; 84153

== ENCOUNTER 2024-03-04 15:18 | Emergency (ER) | payer MEDICARE, SELFPAY ==
--- NOTE | ~2024-03-04 | CT_ITS ---
EXAMINATION: CT HEAD WITHOUT CONTRAST CLINICAL INFORMATION: Headache COMPARISON: CT head 07/15/2023 TECHNIQUE: Contiguous axial imaging was performed from the skull base to vertex without intravenous administration of contrast. This CT examination was performed using dose optimization techniques as appropriate, variously including the following: *Automated exposure control *Adjustment of mA and/or kV according to patient size (this includes techniques or standardized protocols for targeted exams where dose is matched to indication/reason for exam; i.e. extremities or head) *Use of iterative reconstruction technique DLP: 613 mGy-cm FINDINGS: There is no evidence of acute intracranial hemorrhage or edematous territorial infarction. The intracranial hemorrhage seen on the prior CT of 07/15/2023 is not evident in today's study. No abnormal mass effect or midline shift is seen. Gann to white matter differentiation is well preserved. No extra-axial fluid collections are identified. The previously seen small focus of increased density in the anteromedial aspect of the left middle cranial fossa is not evident in today's study. Periventricular and deep white matter hypodensities suggesting chronic microangiopathic changes. No acute calvarial fracture.. Paranasal sinuses and mastoid air cells are well-aerated. CT/CT head/brain wo IV con IMPRESSION: No CT evidence of acute intracranial hemorrhage or edematous territorial infarction.
[2024-03-04 16:09] VITALS: BP 222/111; PULSE 60; RESP 17; TEMP 36.4; O2SAT 98; BMI 17.5
--- NOTE | 2024-03-04 16:10 | ED.GENADULT ---
HPI - General Adult General Chief complaint: General Medical Stated complaint: sent by pcp for labs and ekg Time Seen by Provider: 03/04/24 20:25 Source: patient and family Limitations: no limitations History of Present Illness HPI narrative: 68-year-old male who has a history of hypertension, CKD, renal insufficiency, history of subarachnoid hemorrhage, peripheral vascular disease status post fem-pop bypass, high cholesterol, prostate cancer, presents for evaluation of headache and elevated blood pressure. Patient states that he has a long history of hypertension and takes amlodipine 5 mg daily as well as metoprolol 100 mg daily. Patient reports compliance with this medication. Of note, he previously was on amlodipine 10 mg for an extended period time however this caused him to have lower extremity edema. Patient denies any edema at this time. Denies any chest pain or shortness of breath. No palpitations. No vision changes. No tinnitus. He denies any trauma. Patient reports that he had gradual onset of headache over the past 5 days. He initially was taking Tylenol which offered some relief and then it stopped working. He checks his blood pressure intermittently and it is typically in the 180s systolic. Patient has otherwise been feeling well. Related Data Home Medications ?Medication ?Instructions ?Recorded ?Confirmed aspirin 81 mg tablet,delayed 81 mg PO .@0600 03/04/21 12/28/23 release (Adult Aspirin Regimen) cyanocobalamin (vitamin B-12) 500 mcg PO .@1800 09/25/22 12/28/23 1,000 mcg capsule Previous Rx's ?Medication ?Instructions ?Recorded finasteride 5 mg tablet 5 mg PO DAILY Every other day #90 07/14/23 tabs amlodipine 5 mg tablet 5 mg PO .@0600 90 days #90 tabs 10/16/23 metoprolol succinate 100 mg 100 mg PO DAILY #30 tabs 11/16/23 tablet,extended release 24 hr amlodipine 10 mg tablet 10 mg PO DAILY #14 tabs 03/04/24 Allergies Allergy/AdvReac Type Severity Reaction Status Date / Time Penicillins [PCN] Allergy Intermediate Hives Verified 03/04/24 16:16 Review of Systems Constitutional: Constitutional: Denies chills, Denies fever(s) and Reports headache(s) Eyes: Eyes: Denies change in vision and Denies other (No redness.) ENT: Reports headache(s), Denies nasal congestion, Denies nasal discharge, Denies neck pain and Denies sore throat Cardiovascular: Cardiovascular: Denies chest pain, Denies palpitations, Denies dyspnea, Denies dyspnea on exertion and Denies orthopnea Respiratory: Respiratory: Denies cough, Denies dyspnea and Denies dyspnea on exertion Gastrointestinal: Gastrointestinal: Denies abdominal pain, Denies melena, Denies hematochezia, Denies diarrhea, Denies nausea and Denies vomiting Musculoskeletal: Musculoskeletal: Denies back pain, Denies muscle weakness, Denies neck pain and Denies numbness Integumentary/Breasts: Skin/Breast: Denies rash Neurologic: Reports headache(s), Denies focal weakness and Denies numbness Psychiatric: Psychiatric: Denies depression Endocrine: Endocrine: Denies palpitations PMFSH Past Medical History Medical History CKD (chronic kidney disease) Subarachnoid hemorrhage Tubular adenoma COVID-19 vaccination refused History of testicular cancer Peripheral arterial disease Hypercholesterolemia Coronary artery disease Tobacco abuse COPD (chronic obstructive pulmonary disease) Hypertension Surgical History History of surgery Hx of colonoscopy Hx of prostate biopsy History of tonsillectomy History of testicular surgery Family History Family History Father No problems noted. Mother No problems noted. Maternal Grandmother Myocardial infarction Brother In good health Sister In good health Son In good health Son In good health Daughter In good health Sister Diabetes Social History Social History Household Members: Spouse Housing: House Are you a primary dialysis patient care technician to a significant other at home: No Do you presently have visiting nurse or other home services: No Alcohol intake: never Comment: aware of trip hazard 2X A MONTHS 1 BEER Patient Tobacco Use Status: Current everyday Tobacco user Tobacco use type: Cigarette Cigarette Packs Per Day: 0.5 Cigarettes Per Day: 10 Years Smoked: 53 years- 10/PER DAY Smoked in Last 30 Days: No e-Cigarette/Vaping Use: Never Used Second Hand Smoke Exposure: Yes Use of substances other than those prescribed or required for medical reasons: No Advance Directives: No Advance Directives Information Provided: No Do you have a plan to hurt others: No Plan service: No Current occupational status: employed Current occupational exposures/hazards: No Cognitive needs: No Hearing needs: No Vision needs: Yes Physical Exam ED Vital Signs: Vital Signs - 24 hr 03/04/24 16:09 03/04/24 16:54 03/04/24 18:50 Temperature 97.5 F 97.6 F Pulse Rate 60 74 60 Respiratory Rate 17 16 18 Blood Pressure 222/111 H 213/154 H 193/107 H Pulse Oximetry 98 100 98 Oxygen Delivery Method Room Air Room Air Room Air 03/04/24 21:20 03/04/24 22:51 Temperature Pulse Rate 64 Respiratory Rate 16 Blood Pressure 209/113 H 183/95 H Pulse Oximetry 98 Oxygen Delivery Method Room Air BMI result Body Mass Index 17.5 Const General: cooperative, alert and awake Orientation/consciousness: patient oriented x3 HENMT Other: Pupils equal round and reactive to light. Resp Other: Lung sounds clear throughout. No wheezes rales or rhonchi. Cardio Other: Regular rate and rhythm. Other: Abdomen is soft and nontender. No peritoneal signs Neuro General: patient oriented x3 and CN's II-XI intact bilaterally Extrem Other: No calf tenderness or pedal edema NIH Stroke Scale Internal: Initial- Upon Arrival Level of Consciousness: Alert Level of Consciousness Questions: Answers both questions correctly Level of Consciousness Commands: Performs both tasks correctly Best Gaze: Normal Visual: No visual loss Facial Palsy: Normal Motor Arm (Right): No drift Motor Arm (Left): No drift Motor Leg (Right): No drift Motor Leg (Left): No drift Limb Ataxia: Absent Sensory: Normal Best Language: No aphasia Dysarthia: Normal Extinction and Inattention: No abnormality Score: 0 Course Course Course Narrative: This is an RME: Additional HPI, ROS, PE not included below will be deferred to primary provider. RME assessment and note performed by: Malika Hightower PA-C This is a 89-eew[age]-yas-male with a hx of COPD, CKD, CAD, who presents to the ER with complaints of headache and elevated BP. Patient reports that he has been taking all his medications, no misses dosages. His dose of amlodipine was cut in half last fall due to peripheral edema. He states that he has a headache at this time. He is neurologically intact. History of subarachnoid hemorrhage last fall Plan: , EKG, CT head Reevaluation(s) Reevaluation #1: 10:10 p.m., March 04, 2024 patient is resting comfortably at this time. He was able to tolerate food. Blood pressure has improved to 192/97. He feels comfortable with discharge plan home and will follow up with his PCP. He agrees to current blood amlodipine adjustment. Medications Administered Discontinued Medications Generic Name Dose Route Start Last Admin Trade Name Jesseq PRN Reason Stop Dose Admin Amlodipine Besylate 5 mg 03/04/24 21:00 03/04/24 21:20 Amlodipine Besylate 5 Mg Tablet PO 03/04/24 21:01 5 mg ONCE ONE Administration Protocol Medical Decision Making Medical Decision Making MDM Narrative: 68-year-old male who has a history of hypertension currently on amlodipine and metoprolol, CKD, peripheral vascular disease, high cholesterol and prostate cancer, presents with elevated blood pressure and headache. Currently the patient's headache is rated a 2/10. He has not had any medication except for Tylenol or this morning. He is not lightheaded, denies any chest pain or palpitations. Blood pressure continues to be in the 190s and low 200s systolic. Reviewed all patient's labs, BUN and creatinine is slightly elevated but is at baseline. Head CT is negative. COVID tests are negative. EKG is first-degree block with occasional bigeminy. Rhythm strips have been monitored, he has not had any episodes of V-tach. Review of the patient's blood pressure history confirms that he has persistent elevated blood pressure in the 180s and 190s. Given this, caution will be exercised with his blood pressure. He has tolerated amlodipine 10 mg previously. Will add an additional 5 mg dose of amlodipine now. Patient will be discharged home with amlodipine 10 mg in the interim until he follows up with his PCP. The patient acknowledges this change. I have had extensive discussion with the patient and his , offering additional medication for any pain or discomfort which he has refused at this time. He appears to be of sound mind in neurologically intact. Patient feels comfortable with this plan. No additional electrolyte abnormalities at this time. I have had extensive discussion with Dr. Saldana regarding the patient's blood pressure management and agrees with this plan. Patient will be discharged home and follow up with his PCP. Differential Diagnosis Differential Diagnoses: The differential diagnosis associated with the presentation includes Hypertensive urgency Hypertensive crisis Chronic hypertension Metabolic abnormality Admission/Observation Consideration of admission/observation: Escalation of care including admission/observation considered Consideration for admission if medically warranted. Unlikely at this time. Consult Healthcare Provider Attending physician Lab Data MDM Lab Attestation statement: I reviewed the patient's lab results. 03/04/24 17:15 03/04/24 17:15 Labs: Lab Results 03/04/24 03/04/24 Range/Units 17:15 18:54 WBC 7.8 (4.8-10.8) X10*3/uL RBC 5.25 (4.60-5.80) X10*6/uL Hgb 15.9 (14.0-18.0) g/dl Hct 46.5 (42.0-52.0) % MCV 88.6 (80.0-98.0) fL MCH 30.3 (27.0-33.0) pg MCHC 34.2 (31.0-36.0) g/dl RDW 13.4 (11.0-16.0) % Plt Count 235 (160-400) X10*3/uL MPV 10.1 (9.4-12.4) fL Immature Gran % (Auto) 0.4 (0.0-0.4) % Neut % (Auto) 53.4 (45-73) % Lymph % (Auto) 27.0 (20-40) % Hendricks % (Auto) 10.7 (2-11) % Eos % (Auto) 7.7 H (0-4) % Baso % (Auto) 0.8 (0-2) % Lymph # (Auto) 2.1 (1.2-4.9) X10*3/uL Hendricks # (Auto) 0.8 (0.1-1.2) X10*3/uL Eos # (Auto) 0.6 H (0.0-0.4) X10*3/uL Baso # (Auto) 0.1 (0.0-0.2) X10*3/uL Abs Immat Gran (auto) 0.03 (0.00-0.03) X10*3/uL Absolute Neuts (auto) 4.2 (2.0-8.3) x10*3/uL Absolute Nucleated RBC 0.000 (0.0-0.012) X10*3/uL Nucleated RBC % (auto) 0.0 (0.0-0.2) /100WBC Sodium 138 (135-145) mmol/L Potassium 3.8 (3.3-5.1) mmol/L Chloride 98 (96-108) mmol/L Carbon Dioxide 29 (22-29) mmol/L Anion Gap 15 (12-20) BUN 38 H (9-16) mg/dL Creatinine 2.92 H (0.5-1.4) mg/dL Estim Creat Clear Calc 20.3 Estimated GFR 22 Random Glucose 92 (60-115) mg/dL Calcium 10.2 (8.4-10.2) mg/dL Magnesium 2.3 (1.6-2.6) mg/dL Total Bilirubin 0.5 (0.0-1.0) mg/dL Direct Bilirubin 0.1 (0.0-0.5) mg/dL AST 20 (5-37) U/L ALT 15 (0-40) U/L Alkaline Phosphatase 100 (39-117) U/L Troponin I High Sens 4.3 (<3.5-35.0) ng/L Total Protein 8.2 H (6.5-8.0) g/dL Albumin 4.5 (3.5-5.0) g/dL Influenza Type A (PCR) NEGATIVE (Negative) Influenza Type B (PCR) NEGATIVE (Negative) RSV RNA Qual (PCR) NEGATIVE (Negative) SARS-CoV-2 RNA (RT-PCR) NEGATIVE (Negative) Independent Interpretation I performed an independent interpretation of an: EKG Interpretation: 75 beats per minute, first-degree AV block with PVCs in bigeminy. Reviewed with Dr. Saldana. Radiology Impression Discussion of test interpretation with radiology: I have reviewed the radiologist's reading. Radiologist Impression: [address] [address] [address] Scan Report Signed Patient: Zi Hogan MR#: [id number] : 1955 Acct:[id number] Age/Sex: 68 / M ADM Date: 03/04/24 Loc: .ED Attending Dr: Ordering Physician: Malika Hightower Date of Service: 03/04/24 Procedure(s): CT head/brain wo IV con Accession Number(s): [id number] cc: Malika Hightower; Michael Chery MD~ EXAMINATION: CT HEAD WITHOUT CONTRAST CLINICAL INFORMATION: Headache COMPARISON: CT head 07/15/2023 TECHNIQUE: Contiguous axial imaging was performed from the skull base to vertex without intravenous administration of contrast. This CT examination was performed using dose optimization techniques as appropriate, variously including the following: *Automated exposure control *Adjustment of mA and/or kV according to patient size (this includes techniques or standardized protocols for targeted exams where dose is matched to indication/reason for exam; i.e. extremities or head) *Use of iterative reconstruction technique DLP: 613 mGy-cm FINDINGS: There is no evidence of acute intracranial hemorrhage or edematous territorial infarction. The intracranial hemorrhage seen on the prior CT of 07/15/2023 is not evident in today's study. No abnormal mass effect or midline shift is seen. Gann to white matter differentiation is well preserved. No extra-axial fluid collections are identified. The previously seen small focus of increased density in the anteromedial aspect of the left middle cranial fossa is not evident in today's study. Periventricular and deep white matter hypodensities suggesting chronic microangiopathic changes. No acute calvarial fracture.. Paranasal sinuses and mastoid air cells are well-aerated. CT/CT head/brain wo IV con IMPRESSION: No CT evidence of acute intracranial hemorrhage or edematous territorial infarction. Dictated By: Carmine Hassan MD Signed By: <Electronically signed by Carmine Hassan MD in OV> 03/04/24 1726 DD/ 1646 TD/TT: Ethnoarchaeology Professor: KERRY Independent Historian Clinical information obtained from an independent historian. History obtained from or confirmed by: Spouse External Record Review External record reviewed: Inpatient record and Prior outpatient labs Prescription Management I considered prescription management with: Pain Medication (Patient refused) Chronic Conditions Patient?s care impacted by: Hypertension and Cancer Discharge Plan Discharge Clinical Impression: Hypertension Qualifiers: Hypertension type: essential hypertension Qualified Code(s): I10 - Essential (primary) hypertension Patient Disposition: Home, Self-Care Instructions: Chronic Hypertension (ED) Additional Instructions: Increase your amlodipine to 10 mg daily for the next week. Continue your metoprolol and other medications as directed. Check your blood pressure in the morning, every other day. Keep a log of the readings. Follow-up with your primary care provider. Call this week to schedule a follow-up appointment to be seen this week. Return to the emergency department if you have any worsening of symptoms, or any concerns. Get well soon! Prescriptions: New amlodipine 10 mg tablet 10 mg PO DAILY Qty: 14 0RF No Action amlodipine 5 mg tablet 5 mg PO .@0600 90 Days Qty: 90 1RF aspirin [Adult Aspirin Regimen] 81 mg tablet,delayed release (DR/EC) 81 mg PO .@0600 finasteride 5 mg tablet 5 mg PO DAILY Qty: 90 1RF Rx Instructions: to be taken every other day metoprolol succinate 100 mg tablet extended release 24 hr 100 mg PO DAILY Qty: 30 3RF cyanocobalamin (vitamin B-12) 1,000 mcg capsule 500 mcg PO .@1800 Referrals: Po,Michael Garcia MD [Primary Care Provider] - 1 week (Hypertension, med management) Print Language: Lithuanian
--- NOTE | 2024-03-04 16:17 | ECG_ITS ---
Test Reason : HYPERTENSION Blood Pressure : / mmHG Vent. Rate : 075 BPM Atrial Rate : 075 BPM P-R Int : 220 ms QRS Dur : 098 ms QT Int : 414 ms P-R-T Axes : 074 083 070 degrees QTc Int : 462 ms Sinus rhythm with 1st degree A-V block with frequent Premature ventricular complexes in a pattern of bigeminy Biatrial enlargement Incomplete right bundle branch block Nonspecific ST abnormality Abnormal ECG When compared with ECG of 15-JUL-2023 09:09, Premature ventricular complexes are now Present IN interval has increased Referred By: Malika Hightower Electronically Signed By:ELLIOT FLORES MD
[2024-03-04 16:54] VITALS: BP 213/154; PULSE 74; RESP 16; TEMP 36.4; O2SAT 100
--- NOTE | 2024-03-04 17:04 | PC.NURSE ---
Pt. is on cardiac sonographer at this time.
[2024-03-04 17:21] LABS: MANUAL DIFF FLAG NO
[2024-03-04 17:23] LABS: Basophils Absolute Auto 0.1 X10*3/uL (0.0-0.2); Basophils Percent Auto 0.8 % (0-2); Eosinophils Absolute Auto 0.6 X10*3/uL (0.0-0.4); Eosinophils Percent Auto 7.7 % (0-4); Hematocrit 46.5 % (42.0-52.0); Hemoglobin 15.9 g/dl (14.0-18.0); Imm Gran Abs Auto 0.03 X10*3/uL (0.00-0.03); Imm Gran Pct Auto 0.4 % (0.0-0.4); Lymphocytes Absolute Auto 2.1 X10*3/uL (1.2-4.9); Mean Corpuscular HGB Conc 34.2 g/dl (31.0-36.0); Mean Corpuscular Hemoglobin 30.3 pg (27.0-33.0); Mean Corpuscular Volume 88.6 fL (80.0-98.0); Mean Platelet Volume 10.1 fL (9.4-12.4); Monocytes Absolute Auto 0.8 X10*3/uL (0.1-1.2); Monocytes Percent Auto 10.7 % (2-11); Neutrophils Absolute Auto 4.2 x10*3/uL (2.0-8.3); Neutrophils Percent Auto 53.4 % (45-73); Platelet Count 235 X10*3/uL (160-400); Red Blood Count 5.25 X10*6/uL (4.60-5.80); Red Cell Distribution Width 13.4 % (11.0-16.0); White Blood Count 7.8 X10*3/uL (4.8-10.8)
[2024-03-04 17:48] LABS: Alanine Aminotransferase 15 U/L (0-40); Albumin Level 4.5 g/dL (3.5-5.0); Alkaline Phosphatase 100 U/L (39-117); Anion Gap 15 (12-20); Aspartate Amino Transferase 20 U/L (5-37); Bilirubin Direct 0.1 mg/dL (0.0-0.5); Bilirubin Total 0.5 mg/dL (0.0-1.0); Blood Urea Nitrogen 38 mg/dL (9-16); Calcium 10.2 mg/dL (8.4-10.2); Carbon Dioxide 29 mmol/L (22-29); Chloride 98 mmol/L (96-108); Creatinine Clr Calc Pharmacy 20.3; Estimated Glomerular Filt Rate 22; Glucose Random 92 mg/dL (60-115); Magnesium 2.3 mg/dL (1.6-2.6); Potassium 3.8 mmol/L (3.3-5.1); Sodium 138 mmol/L (135-145); Total Protein 8.2 g/dL (6.5-8.0)
[2024-03-04 17:57] LABS: Troponin-I High Sensitivity 4.3 ng/L (<3.5-35.0)
[2024-03-04 18:50] VITALS: BP 193/107; PULSE 60; RESP 18; O2SAT 98
[2024-03-04 19:38] LABS: Influenza A PCR NEGATIVE (Negative); Influenza B PCR NEGATIVE (Negative); Resp Syncy Virus RNA Qual PCR NEGATIVE (Negative); SARS COV2 PCR INHOUSE NEGATIVE (Negative)
[2024-03-04 21:20] VITALS: BP 209/113
[2024-03-04] MEDS: amLODIPine Besylate 5 MG TABLET PO (21:20)
[2024-03-04 22:51] VITALS: BP 183/95; PULSE 64; RESP 16; O2SAT 98
== END 2024-03-05 06:33 | disposition home or self-care (01) ==
PROVIDERS: Physician Assistant Medical; Emergency Provider Emergency Medicine Emergency Medical Services; PCP Internal Medicine
DX: I12.9 Hypertensive chronic kidney disease with stage 1 through stage 4 chronic kidney disease, or unspecified chronic kidney disease (principal); N18.9 Chronic kidney disease, unspecified; R51.9 Headache, unspecified; C61 Malignant neoplasm of prostate; E78.00 Pure hypercholesterolemia, unspecified; J44.9 Chronic obstructive pulmonary disease, unspecified; F17.210 Nicotine dependence, cigarettes, uncomplicated; Z79.899 Other long term (current) drug therapy; Z03.818 Encounter for observation for suspected exposure to other biological agents ruled out
CPT/HCPCS: 0241U; 70450; 80048; 80076; 83735; 84484; 85025; 93005; 99284

== ENCOUNTER → 2024-03-04 16:17 | Outpatient (BNV) | payer MEDICARE, SELFPAY | PROVIDERS: Emergency Provider Emergency Medicine Emergency Medical Services; PCP Internal Medicine; Visit Provider Internal Medicine Cardiovascular Disease | DX: R94.31 Abnormal electrocardiogram [ECG] [EKG] (principal) | CPT/HCPCS: 93010 ==

== ENCOUNTER 2024-03-14 09:42 | Outpatient (AMB) | payer MEDICARE, SELFPAY ==
[2024-03-14 09:43] VITALS: BP 158/80; PULSE 68; O2SAT 98; BMI 17.9
--- NOTE | 2024-03-14 09:43 | MHC.PC.OV ---
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: No Allergies Penicillins [PCN] Allergy (Intermediate, Verified 03/14/24 09:44) Hives Medication List - Last Reconciled 03/14/24 by Beverly Scott PA-C amlodipine 10 mg PO DAILY amlodipine 5 mg PO .@0600 90 days aspirin (Adult Aspirin Regimen) 81 mg PO .@0600 cyanocobalamin (vitamin B-12) 500 mcg PO .@1800 finasteride 5 mg PO DAILY metoprolol succinate ER 100 mg PO DAILY Tobacco use date assessed: 08/05/23 Fall risk assessment: No Falls in past year Last assessed Fall Risk: 03/14/24 Dental Screening Dental Screen Date: 08/05/23 HPI [facility] 03/05 High BP HPI Details 68-year-old male with past medical history of hypertension, COPD, coronary artery disease, hypercholesterolemia, prostate cancer, and chronic kidney disease last seen by Dr. Chery December 2023 coming in for hospital follow up.? Interview of the notes, patient was seen in [facility] ED 03/04/2024 for evaluation for elevated blood pressures with headache.? Labs and head CT within normal limits.? EKG shows first-degree block with occasional bigeminy.? Amlodipine was adjusted to 10 mg daily and advised to follow up with PCP. Patient states he still has persistent headaches every day and also has been taking his blood pressure at home with most values ranging from 180-200 systolic and normal diastolic. When he takes his blood pressure he is often lying flat in bed and only takes in the morning. He is still smoking cigarettes daily and endorses poor diet. [facility] Medical History CKD (chronic kidney disease) Subarachnoid hemorrhage Tubular adenoma COVID-19 vaccination refused History of testicular cancer Peripheral arterial disease Hypercholesterolemia Coronary artery disease Tobacco abuse COPD (chronic obstructive pulmonary disease) Hypertension Surgical History History of surgery Hx of colonoscopy Hx of prostate biopsy History of tonsillectomy History of testicular surgery Family History Father No problems noted. Mother No problems noted. Maternal Grandmother Myocardial infarction Brother In good health Sister In good health Son In good health Son In good health Daughter In good health Sister Diabetes Social History Household Members: Spouse Housing: House Are you a primary adult caregiver to a significant other at home: No Do you presently have visiting nurse or other home services: No Alcohol intake: never Comment: aware of trip hazard 2X A MONTHS 1 BEER Patient Tobacco Use Status: Current everyday Tobacco user Tobacco use type: Cigarette Cigarette Packs Per Day: 0.5 Cigarettes Per Day: 10 Years Smoked: 53 years- 10/PER DAY e-Cigarette/Vaping Use: Never Used Second Hand Smoke Exposure: Yes service: No Current occupational status: employed Current occupational exposures/hazards: No Cognitive needs: No Hearing needs: No Vision needs: Yes Questionnaire PHQ-9 Over the last 2 weeks, how often have you been bothered by any of the following problems? 1. Little interest or pleasure in doing things: several days 2. Feeling down, depressed, or hopeless: several days 3. Trouble falling or staying asleep, or sleeping too much: nearly every day 4. Feeling tired or having little energy: more than half the days 5. Poor appetite or overeating: several days 6. Feeling bad about yourself - or that you are a failure or have let yourself or your family down: several days 7. Trouble concentrating on things, such as reading the newspaper or watching television: not at all 8. Moving or speaking so slowly that other people could have noticed. Or the opposite - being so fidgety or restless that you have been moving around a lot more than usual: not at all 9. Thoughts that you would be better off or of hurting yourself in some way: not at all Total score: 9 Depression Screening Interpretation: Negative Depression Screening Done: Yes 00579 - PHQ-9 Billing: Yes Source: Developed by Drs. Tad Angel, Jennie Nicole, Tello Mendoza and colleagues, with an educational noemi from [employer]. Thrive Questionnaire Date Thrive assessed: 08/05/23 AUDIT C Alcohol Use Questionnaire (AUDIT-C) 1. How often do you have a drink containing alcohol?: Never 2. How many drinks containing alcohol do you have on a typical day when you are drinking?: 1 or 2 3. How often do you have six or more drinks on one occasion?: Never Total Score: 0 BIANCA-7 AMB Questionnaire BIANCA-7 Date BIANCA - 7 assessed: 08/05/23 Source: Developed by Drs. Tad Angel, Jennie Nicole, Tello Mendoza and colleagues, with an educational noemi from [employer]. Review of Systems Const Denies body aches, Denies chills, Denies fever(s), Reports headache(s) and Denies poor appetite Eyes Reports no additional complaints ENT Denies dysphagia, Denies dizziness, Reports headache(s) and Denies odynophagia Card Denies chest pain, Denies syncope, Denies edema, Denies irregular heart rhythm, Denies lightheadedness and Denies dyspnea Resp Denies cough and Denies dyspnea GI Denies abdominal pain, Denies constipation, Denies dysphagia, Denies diarrhea, Denies nausea, Denies odynophagia and Denies vomiting Reports no additional complaints Musc Reports no additional complaints and Denies abnormal gait Skin/Breast Reports system reviewed and no additional complaints, except as documented Neuro Denies abnormal gait, Denies dizziness, Denies syncope and Reports headache(s) Psych Reports no additional complaints Physical exam (Primary Care) Vital Signs: Last Vital Signs Pulse 68 03/14/24 09:43 BP 158/80 H 03/14/24 09:43 Pulse Ox 98 03/14/24 09:43 Oxygen Delivery Method Room Air 03/14/24 09:43 BMI result Body Mass Index 17.9 Tobacco/Smoking Status: Tobacco use Status Tobacco use date assessed 08/05/23 03/14/24 09:44 Patient Tobacco Use Status Current everyday Tobacco 03/14/24 09:44 Tobacco use type Cigarette 03/14/24 09:44 e-Cigarette/Vaping Use Never Used 03/14/24 09:44 PHQ-9: PHQ-9 Score PHQ-9: Total score 9 03/14/24 09:44 Depression Screening Interpretation: Negative Thrive Assessment: Date of Thrive Assessment Date Thrive assessed 08/05/23 03/14/24 09:44 Const General: cooperative, healthy appearing, comfortable and no acute distress Orientation/consciousness: patient oriented x3 HENMT Head: Yes normocephalic Ears: hearing grossly normal bilaterally General nose exam: Normal external nose present Eyes General: appearance normal, both eyes and all related structures Conjunctivae: conjunctivae normal Neck Neck: Yes full ROM and Yes no lymphadenopathy Resp Effort & Inspection: normal respiratory effort Auscultation: clear to auscultation bilaterally, no crackles, no rales, no rhonchi and no wheezes Cardio Rate: regular rate Rhythm: regular rhythm Skin General skin exam: no rashes or lesions noted Neuro General: patient oriented x3 Gait exam (Neuro): Normal gait present Extrem General: Yes normal to inspection, Yes full ROM and No edema Psych Affect: normal affect Attitude: cooperative Insight: Good insight present (Psych) Judgement: Good judgement present (Psych) Assessment and Plan Assessment & Plan (1) Hypertension: Code(s): I10 - Essential (primary) hypertension Qualifiers: Hypertension type: essential hypertension Qualified Code(s): I10 - Essential (primary) hypertension Plan: Reviewed with patient contributing factors to elevated blood pressure and discussed strategies for regular exercise, diet, smoking cessation, and decrease salt intake. Advised patient to follow up with Nephrology for continued elevated blood pressures. For headaches related to elevated blood pressures patient may take Tylenol. Reviewed with patient red flag symptoms and when to present to the ER. Plan This note was constructed using voice recognition software. While every effort has been made to ensure accuracy and section plotter operator, still areas may have been included sometimes these areas may affect the content or meeting of the given symptoms. Total time spent caring for the patient today was 30 minutes. This includes time spent before the visit reviewing the chart, time spent during the visit, and time spent after the visit and documentation. Coding Level of Care Code Est Pt Level 4 (41791) Diagnoses Essential hypertension I10 Hypertension type: essential hypertension
[2024-03-14 10:26] VITALS: BP 170/80
== END 2024-03-14 10:41 | disposition home or self-care (01) ==
PROVIDERS: PCP Internal Medicine
DX: I10 Essential (primary) hypertension (principal)
CPT/HCPCS: 99214

== ENCOUNTER 2024-03-15 10:43 | Outpatient (AMB) | payer MEDICARE, SELFPAY ==
[2024-03-15 10:47] VITALS: BP 142/70; PULSE 37; O2SAT 97; BMI 18.2
--- NOTE | 2024-03-15 10:47 | HO.NEPHOV_ITS ---
Vital Signs 03/15/24 10:47 Height 6 ft Weight 134 lb BMI 18.2 BP 142/70 H Blood Pressure Location Lt brachial Position Sitting Pulse 37 L Pulse Source Pulse Oximeter Pulse Oximetry (%) 97 Oxygen Delivery Method Room Air Intake Visit Reasons: Pt came to office for appt Per Assessment Nurse Required: No Accompanied by: Self / Same As Patient Allergies Penicillins [PCN] Allergy (Intermediate, Verified 03/15/24 10:48) Hives Medication List - Last Reconciled 03/15/24 by Shelton Simmons MD amlodipine 10 mg PO DAILY aspirin (Adult Aspirin Regimen) 81 mg PO .@0600 cyanocobalamin (vitamin B-12) 500 mcg PO .@1800 finasteride 2.5 mg PO DAILY metoprolol succinate ER 100 mg PO DAILY HPI Comments Details: Zi is a 68-year-old man with a history of hypertension and significant vascular disease. He has been referred for the evaluation of chronic kidney disease. Baseline creatinine was about 1.0 1.2 mg/dL back in October of 2022 In June of 2023 creatinine bumped up to 1.6. In July creatinine was 1.9 and as of November 2023 serum creatinine was 2.63 and hence this evaluation. He has been on hydrochlorothiazide 50 mg which was reduced to 25 mg due to hypokalemia. About 3 months ago he was prescribed rosuvastatin. He is stopped taking it about 3 weeks ago because he believes that the renal insufficiency is related to the use of rosuvastatin. However based on the available lab data the renal insufficiency started we before rosuvastatin was started. He has a history of testicular cancer and underwent radiation several years ago. History of prostate cancer and being evaluated by Urology. Waiting for repeat biopsy. History of significant peripheral vascular disease. Status post fem- fem bypass surgery by Dr. Veras. Apparently he had a coronary angiogram in [facility] which was reportedly normal. He has a history of smoking for several years. He continues to smoke cigarettes despite peripheral vascular disease and dyslipidemia. Today he has no shortness of breath no chest pain nausea or vomiting. No diarrhea constipation. No edema. No rash. He does have increased urinary frequency. 01/05/2024. During his last visit hydrochlorothiazide was discontinued. He has no new complaints today. 03/15/2024. Recently in ER due to accelerated hypertension. Systolic blood pressure was 220 mm Hg. Serum creatinine bumped up to 3.19. Previously CT angiogram of the abdomen in 2021 showed bilateral atherosclerosis disease of renal arteries. [facility] Medical History CKD (chronic kidney disease) Subarachnoid hemorrhage Tubular adenoma COVID-19 vaccination refused History of testicular cancer Peripheral arterial disease Hypercholesterolemia Coronary artery disease Tobacco abuse COPD (chronic obstructive pulmonary disease) Hypertension Surgical History History of surgery Hx of colonoscopy Hx of prostate biopsy History of tonsillectomy History of testicular surgery Family History Father No problems noted. Mother No problems noted. Maternal Grandmother Myocardial infarction Brother In good health Sister In good health Son In good health Son In good health Daughter In good health Sister Diabetes Social History Household Members: Spouse Housing: House Are you a primary critical care unit nurse to a significant other at home: No Do you presently have visiting nurse or other home services: No Alcohol intake: never Comment: aware of trip hazard 2X A MONTHS 1 BEER Patient Tobacco Use Status: Current everyday Tobacco user Tobacco use type: Cigarette Cigarette Packs Per Day: 0.5 Cigarettes Per Day: 10 Years Smoked: 53 years- 10/PER DAY e-Cigarette/Vaping Use: Never Used Second Hand Smoke Exposure: Yes service: No Current occupational status: employed Current occupational exposures/hazards: No Cognitive needs: No Hearing needs: No Vision needs: Yes Physical Exam Vital Signs: Last Vital Signs Pulse 37 L 03/15/24 10:47 BP 142/70 H 03/15/24 10:47 Pulse Ox 97 03/15/24 10:47 Oxygen Delivery Method Room Air 03/15/24 10:47 BMI result Body Mass Index 18.2 Const General: comfortable; No acute distress Orientation/consciousness: patient oriented x3 Eyes General: appearance normal, both eyes and all related structures Visual Khan: normal visual khan by confrontation Neck Neck: Yes supple and Yes no JVD Resp Effort & Inspection: normal respiratory effort and respiratory effort not decreased Auscultation: rhonchi Cardio Palpation: no palpable S3 and no palpable S4 Heart sounds: no rubs GI Inspection: Yes normal to inspection Palpation (GI): Soft to palpation Percussion: Yes normal to percussion Auscultation: normal bowel sounds General: Yes no CVA tenderness Back/Spine/Pelvis Back: no CVA tenderness Skin General skin exam: no petechiae and no purpura Neuro General: patient oriented x3 and no focal motor deficits Extrem General: No clubbing and No edema Results Reviewed Results Reviewed: Mar 2022 RENAL ARTERIES: Severe atherosclerotic changes are present in both renal arteries proximally with at least moderate stenoses. Nephrology Results: Hgb 15.9 g/dl (14.0-18.0) 03/04/24 WBC 7.8 X10*3/uL (4.8-10.8) 03/04/24 Plt Count 235 X10*3/uL (160-400) 03/04/24 Sodium 138 mmol/L (135-145) 03/04/24 Potassium 3.8 mmol/L (3.3-5.1) 03/04/24 Chloride 98 mmol/L (96-108) 03/04/24 Carbon Dioxide 29 mmol/L (22-29) 03/04/24 BUN 38 mg/dL (9-16) H 03/04/24 Creatinine 2.92 mg/dL (0.5-1.4) H 03/04/24 Calcium 10.2 mg/dL (8.4-10.2) 03/04/24 Assessment & Plan Assessment & Plan (1) CKD (chronic kidney disease): Code(s): N18.9 - Chronic kidney disease, unspecified Category: Medical Plan 68-year-old man with a history of longstanding hypertension dyslipidemia and peripheral vascular disease in the setting of chronic smoking has chronic kidney disease. He has a history of prostate cancer. He has ROSAURA superimposed on CKD. ROSAURA is most likely due to hypoperfusion in the setting of accelerated hypertension Probably has ischemic nephropathy No evidence obstructive uropathy based on ultrasound Urinary sediments were bland therefore glomerulonephritis or interstitial disease seem unlikely. FUENTES based on CTA in 2021 Will obtain MRA And refer back to Continue to hold hydrochlorothiazide. Stay on low-sodium diet. Increase p.o. fluid intake. Encouraged to avoid nephrotoxic agents including NSAIDs. He will benefit from smoking cessation. Blood pressure seems optimal with the current antihypertensive regimen. Orders: Orders MR angio abdomen wo/w con Today Shelton Simmons MD I70.1 - Atherosclerosis of renal artery Basic Metabolic Panel 6 Weeks Shelton Simmons MD N18.9 - Chronic kidney disease, unspecified Medications: Changed From finasteride to be taken every other day 5 mg PO DAILY 90 tabs 1RF Every other day C61 - Malignant neoplasm of prostate, N40.1 - Benign prostatic hyperplasia with lower urinary tract symptoms, R33.9 - Retention of urine, unspecified To finasteride to be taken every other day 2.5 mg PO DAILY Every other day C61 - Malignant neoplasm of prostate, N40.1 - Benign prostatic hyperplasia with lower urinary tract symptoms, R33.9 - Retention of urine, unspecified Michael Garcia Po, Refilled amlodipine 10 mg PO DAILY 30 tabs 2RF Shelton Simmons MD metoprolol succinate ER 100 mg PO DAILY 30 tabs 3RF Shelton Simmons MD I10 - Essential (primary) hypertension Coding Level of Care Code Est Pt Level 4 (48901) Diagnoses CKD (chronic kidney disease) N18.9
== END 2024-03-15 11:18 | disposition home or self-care (01) ==
PROVIDERS: PCP Internal Medicine; Visit Provider Internal Medicine Hypertension Specialist
DX: N18.9 Chronic kidney disease, unspecified (principal)
CPT/HCPCS: 99214

== ENCOUNTER → 2024-03-15 10:43 | Outpatient (BNVA) | payer MEDICARE, SELFPAY | PROVIDERS: PCP Internal Medicine; Visit Provider Internal Medicine Hypertension Specialist | DX: I12.9 Hypertensive chronic kidney disease with stage 1 through stage 4 chronic kidney disease, or unspecified chronic kidney disease (principal); E87.6 Hypokalemia; N18.9 Chronic kidney disease, unspecified; F17.210 Nicotine dependence, cigarettes, uncomplicated | CPT/HCPCS: 99212 ==

== ENCOUNTER 2024-04-20 08:39 | Outpatient (REF) | payer MEDICARE, SELFPAY ==
--- NOTE | ~2024-04-20 | MR_ITS ---
EXAMINATION: MR ANGIOGRAPHY ABDOMEN AND PELVIS WITHOUT AND WITH CONTRAST CLINICAL INFORMATION: Atherosclerosis of renal artery COMPARISON: Renal artery ultrasound dated 12/14/2023, CTA abdomen/pelvis and lower extremity runoff dated 04/04/2022 TECHNIQUE: Routine abdominopelvic MRA protocol without and with contrast was performed. 20 mL of Gadavist was administered. The images were reviewed and postprocessed on a dedicated 3-D workstation. FINDINGS: VASCULAR: CARDIAC: Heart normal in size. No pericardial effusion. ARTERIAL: Aorta: Extensive atherosclerotic plaque throughout the infrarenal abdominal aorta resulting in markedly irregular lumen and multifocal penetrating atherosclerotic ulcers. Ectatic distal abdominal aorta above the bifurcation measures 2.9 x 2.8 cm, for reference the mid abdominal aorta measures 2.0 x 2.0 cm. 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 Atherosclerosis of the left common iliac artery results in at least moderate stenosis at the origin and a markedly irregular lumen. Mesenteric Arteries: Celiac artery is patent. Superior mesenteric artery patent. Inferior mesenteric artery is not visualized. Renal Arteries: Single renal arteries bilaterally. Limited evaluation for stenosis given overestimation of the lumen. Within the limitations of the study, there is likely severe stenosis at the origin of the left artery and at least moderate stenosis at the origin of the right artery. VENOUS: Inferior Vena Cava: Patent Iliac Venous System: Patent Portomesenteric Venous System: Patent NONVASCULAR: Bilateral simple renal cysts, the largest of which measures 2.3 x 2.0 cm in the interpolar region of the left kidney, and for which no additional imaging is recommended. The remainder of the visualized abdomen is unremarkable. MR/MR angio abdomen wo/w con IMPRESSION: 1. Extensive atherosclerotic plaque throughout the infrarenal abdominal aorta resulting in markedly irregular lumen and multifocal penetrating atherosclerotic ulcers. Ectatic distal abdominal aorta above the bifurcation measures 2.9 x 2.8 cm. 2. 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 3. Atherosclerosis of the left common iliac artery results in at least moderate stenosis at the origin and a markedly irregular lumen. 4. Limited evaluation for renal artery stenosis given overestimation of the lumen on MRI. Within the limitations of the study, there is likely severe stenosis at the origin of the left artery and at least moderate stenosis at the origin of the right artery. Electronically signed by: Laverne Interiano MD 04/28/2024 09:12 AM EDT RP
[2024-04-20] MEDS: gadobutroL 10 ML VIAL IVPUSH ×2 (09:26)
== END 2024-04-20 08:40 | disposition home or self-care (01) ==
LOC: HO.MRI 08:39
PROVIDERS: PCP Internal Medicine; Visit Provider Internal Medicine Hypertension Specialist
DX: I70.1 Atherosclerosis of renal artery (principal)
CPT/HCPCS: 74185; A9585

== ENCOUNTER 2024-04-21 10:58 | Outpatient (REF) | payer MEDICARE, SELFPAY ==
[2024-04-21 12:59] LABS: Anion Gap 16 (12-20); Blood Urea Nitrogen 42 mg/dL (9-16); Calcium 9.9 mg/dL (8.4-10.2); Carbon Dioxide 24 mmol/L (22-29); Chloride 101 mmol/L (96-108); Estimated Glomerular Filt Rate 20; Glucose Random 97 mg/dL (60-115); Potassium 3.5 mmol/L (3.3-5.1); Sodium 137 mmol/L (135-145)
== END 2024-04-21 10:59 | disposition home or self-care (01) ==
LOC: HO.LAB 10:58
PROVIDERS: Absent Provider Urology; PCP Internal Medicine; Visit Provider Internal Medicine Hypertension Specialist
DX: N18.9 Chronic kidney disease, unspecified (principal)
CPT/HCPCS: 36415; 80048

== ENCOUNTER 2024-04-22 09:44 | Outpatient (REF) | payer MEDICARE, SELFPAY ==
[2024-04-22 09:52] LABS: Appearance Urine Clear; Color Urine Yellow; Glucose Urine UA Negative (Negative); Leukocyte Esterase Urine Negative (Negative); Nitrite Urine Negative (Negative); Specific Gravity - Urine 1.015 (1.005-1.025); UMIC TRIGGER UA YES; Urine Blood Negative (Negative); Urine Ketones Negative (Negative); Urine Protein 30 (1+) mg/dL (Neg-Trace)
[2024-04-22 09:56] LABS: Bacteria Urine None Seen (None Seen); Hyaline Casts Urine 0-2 /LPF (0-2); RBC Urine 0-2 /HPF (0-2); Squamous Epithelial Cell Urine 0-2 /HPF (0-2); WBC Urine 0-5 /HPF (0-5)
== END 2024-04-22 09:45 | disposition home or self-care (01) ==
LOC: HO.LNP 09:44
PROVIDERS: Visit Provider Internal Medicine Hypertension Specialist
DX: N18.9 Chronic kidney disease, unspecified (principal)
CPT/HCPCS: 81001

== ENCOUNTER 2024-04-25 11:05 | Outpatient (AMB) | payer MEDICARE, SELFPAY ==
[2024-04-25 11:22] VITALS: BP 178/90; PULSE 32; O2SAT 99; BMI 18.6
--- NOTE | 2024-04-25 11:22 | HO.NEPHOV_ITS ---
Vital Signs 04/25/24 11:22 Height 6 ft Weight 137 lb BMI 18.6 BP 178/90 H Blood Pressure Location Lt brachial Position Sitting Pulse 32 L Pulse Source Pulse Oximeter Pulse Oximetry (%) 99 Oxygen Delivery Method Room Air Intake Visit Reasons: CKD/ Conf Certified Surgical Technician Required: No Accompanied by: Spouse Allergies Penicillins [PCN] Allergy (Intermediate, Verified 04/25/24 11:23) Hives Medication List - Last Reconciled 04/25/24 by Shelton Simmons MD amlodipine 10 mg PO DAILY aspirin (Adult Aspirin Regimen) 81 mg PO .@0600 cyanocobalamin (vitamin B-12) 500 mcg PO .@1800 finasteride 2.5 mg PO DAILY metoprolol succinate ER 100 mg PO DAILY HPI Comments Details: Zi is a 68-year-old man with a history of hypertension and significant vascular disease. He has been referred for the evaluation of chronic kidney disease. Baseline creatinine was about 1.0 1.2 mg/dL back in October of 2022 In June of 2023 creatinine bumped up to 1.6. In July creatinine was 1.9 and as of November 2023 serum creatinine was 2.63 and hence this evaluation. He has been on hydrochlorothiazide 50 mg which was reduced to 25 mg due to hypokalemia. About 3 months ago he was prescribed rosuvastatin. He is stopped taking it about 3 weeks ago because he believes that the renal insufficiency is related to the use of rosuvastatin. However based on the available lab data the renal insufficiency started we before rosuvastatin was started. He has a history of testicular cancer and underwent radiation several years ago. History of prostate cancer and being evaluated by Urology. Waiting for repeat biopsy. History of significant peripheral vascular disease. Status post fem- fem bypass surgery by Dr. Veras. Apparently he had a coronary angiogram in [place] which was reportedly normal. He has a history of smoking for several years. He continues to smoke cigarettes despite peripheral vascular disease and dyslipidemia. Today he has no shortness of breath no chest pain nausea or vomiting. No diarrhea constipation. No edema. No rash. He does have increased urinary frequency. 01/05/2024. During his last visit hydrochlorothiazide was discontinued. He has no new complaints today. 03/15/2024. Recently in ER due to accelerated hypertension. Systolic blood pressure was 220 mm Hg. Serum creatinine bumped up to 3.19. Previously CT angiogram of the abdomen in 2021 showed bilateral atherosclerosis disease of renal arteries. 04/25/2024. Today he was accompanied by his . He still has some headache. Underwent MRA. Continues have headache on and off Complains of increased urinary frequency. This has not changed. He follows with Urology [facility] Medical History CKD (chronic kidney disease) Subarachnoid hemorrhage Tubular adenoma COVID-19 vaccination refused History of testicular cancer Peripheral arterial disease Hypercholesterolemia Coronary artery disease Tobacco abuse COPD (chronic obstructive pulmonary disease) Hypertension Surgical History History of surgery Hx of colonoscopy Hx of prostate biopsy History of tonsillectomy History of testicular surgery Family History Father No problems noted. Mother No problems noted. Maternal Grandmother Myocardial infarction Brother In good health Sister In good health Son In good health Son In good health Daughter In good health Sister Diabetes Social History Household Members: Spouse Housing: House Are you a primary pet care assistant to a significant other at home: No Do you presently have visiting nurse or other home services: No Alcohol intake: never Comment: aware of trip hazard 2X A MONTHS 1 BEER Patient Tobacco Use Status: Current everyday Tobacco user Tobacco use type: Cigarette Cigarette Packs Per Day: 0.5 Cigarettes Per Day: 10 Years Smoked: 53 years- 10/PER DAY e-Cigarette/Vaping Use: Never Used Second Hand Smoke Exposure: Yes service: No Current occupational status: employed Current occupational exposures/hazards: No Cognitive needs: No Hearing needs: No Vision needs: Yes Physical Exam Vital Signs: Last Vital Signs Pulse 32 L 04/25/24 11:22 BP 178/90 H 04/25/24 11:22 Pulse Ox 99 04/25/24 11:22 Oxygen Delivery Method Room Air 04/25/24 11:22 BMI result Body Mass Index 18.6 Const General: comfortable; No acute distress Orientation/consciousness: patient oriented x3 Eyes General: appearance normal, both eyes and all related structures Visual Khan: normal visual khan by confrontation Neck Neck: Yes supple and Yes no JVD Resp Effort & Inspection: normal respiratory effort and respiratory effort not decreased Auscultation: rhonchi Cardio Palpation: no palpable S3 and no palpable S4 Heart sounds: no rubs GI Inspection: Yes normal to inspection Palpation (GI): Soft to palpation Percussion: Yes normal to percussion Auscultation: normal bowel sounds General: Yes no CVA tenderness Back/Spine/Pelvis Back: no CVA tenderness Skin General skin exam: no petechiae and no purpura Neuro General: patient oriented x3 and no focal motor deficits Extrem General: No clubbing and No edema Results Reviewed Nephrology Results: Hgb 15.9 g/dl (14.0-18.0) 03/04/24 WBC 7.8 X10*3/uL (4.8-10.8) 03/04/24 Plt Count 235 X10*3/uL (160-400) 03/04/24 Sodium 137 mmol/L (135-145) 04/21/24 Potassium 3.5 mmol/L (3.3-5.1) 04/21/24 Chloride 101 mmol/L (96-108) 04/21/24 Carbon Dioxide 24 mmol/L (22-29) 04/21/24 BUN 42 mg/dL (9-16) H 04/21/24 Creatinine 3.18 mg/dL (0.5-1.4) H 04/21/24 Calcium 9.9 mg/dL (8.4-10.2) 04/21/24 Urine Protein 30 (1+) mg/dL (Neg-Trace) H 04/22/24 Assessment & Plan Assessment & Plan (1) CKD (chronic kidney disease): Code(s): N18.9 - Chronic kidney disease, unspecified Category: Medical (2) Renal artery stenosis: Code(s): I70.1 - Atherosclerosis of renal artery Category: Medical Plan 69-year-old man with a history of longstanding hypertension dyslipidemia and peripheral vascular disease in the setting of chronic smoking has chronic kidney disease. He has a history of prostate cancer. He has ROSAURA superimposed on CKD. ROSAURA is most likely due to hypoperfusion in the setting of accelerated hypertension Probably has ischemic nephropathy No evidence obstructive uropathy based on ultrasound Urinary sediments were bland therefore glomerulonephritis or interstitial disease seem unlikely. Currently has stage IV CKD. We discussed importance of tight control of blood pressure to slow the progression of disease. FUENTES based on CTA in 2021 MRI has been done. Official results are pending. Imaging was reviewed. I will refer him to Dr. Veras for further evaluation of renal artery stenosis Continue to hold hydrochlorothiazide. Stay on low-sodium diet. Increase p.o. fluid intake. Encouraged to avoid nephrotoxic agents including NSAIDs. He will benefit from smoking cessation. Blood pressure is suboptimal. Add hydralazine 10 mg PO TID and titrate the dose gradually as tolerated. Orders: Referrals Vascular Surgery Referral I70.1 - Atherosclerosis of renal artery Medications: New hydralazine 10 mg PO TID 90 tabs 1RF Coding Level of Care Code Est Pt Level 4 (58490) Diagnoses CKD (chronic kidney disease) N18.9 Renal artery stenosis I70.1
== END 2024-04-25 11:48 | disposition home or self-care (01) ==
PROVIDERS: PCP Internal Medicine; Visit Provider Internal Medicine Hypertension Specialist
DX: I12.9 Hypertensive chronic kidney disease with stage 1 through stage 4 chronic kidney disease, or unspecified chronic kidney disease (principal); N17.9 Acute kidney failure, unspecified; N18.4 Chronic kidney disease, stage 4 (severe); I70.1 Atherosclerosis of renal artery
CPT/HCPCS: 99214

== ENCOUNTER → 2024-04-25 11:05 | Outpatient (BNVA) | payer MEDICARE, SELFPAY | PROVIDERS: PCP Internal Medicine; Visit Provider Internal Medicine Hypertension Specialist | DX: I12.9 Hypertensive chronic kidney disease with stage 1 through stage 4 chronic kidney disease, or unspecified chronic kidney disease (principal); N18.9 Chronic kidney disease, unspecified; F17.210 Nicotine dependence, cigarettes, uncomplicated; I70.1 Atherosclerosis of renal artery; Z85.46 Personal history of malignant neoplasm of prostate | CPT/HCPCS: 99212 ==

== ENCOUNTER 2024-05-03 10:08 | Outpatient (AMB) | payer MEDICARE, SELFPAY ==
[2024-05-03 10:11] VITALS: BP 162/90; PULSE 64; O2SAT 98; BMI 18.2
--- NOTE | 2024-05-03 10:11 | A.OFFPC_ITS ---
Vital Signs 05/03/24 10:11 Height 6 ft Weight 134 lb BMI 18.2 BP 162/90 H Blood Pressure Location Lt brachial Position Sitting Pulse 64 Pulse Source Pulse Oximeter Pulse Oximetry (%) 98 Oxygen Delivery Method Room Air Intake Visit Reasons: 6 Weeks F/U Textile Conservator Required: No Allergies Penicillins [PCN] Allergy (Intermediate, Verified 05/03/24 10:11) Hives Medication List - Last Reconciled 05/03/24 by Beverly Scott PA-C amlodipine 10 mg PO DAILY aspirin (Adult Aspirin Regimen) 81 mg PO .@0600 cyanocobalamin (vitamin B-12) 500 mcg PO .@1800 finasteride 2.5 mg PO DAILY hydralazine 10 mg PO TID metoprolol succinate ER 100 mg PO DAILY Tobacco use date assessed: 08/05/23 Fall risk assessment: No Falls in past year Last assessed Fall Risk: 05/03/24 Dental Screening Dental Screen Date: 08/05/23 HPI 6 Weeks F/U HPI Details 68-year-old male with past medical histo ry of hypertension, COPD, coronary artery disease, hypercholesterolemia, prostate cancer, and chronic kidney disease last seen February 2024 coming in for follow up on blood pressure.? In review of the notes, patient was seen by Nephrology 04/25/2024 patient was referred to vascular surgery for further evaluation of renal artery stenosis and started on hydralazine 10 mg t.i.d. for blood pressure management.? Patient has follow up scheduled with vascular surgery 05/17/2024. Patient states he is feeling generally well however does continue to have intermittent headaches that resolve with Excedrin and smoking cigarettes. Patient's blood pressure continues to be elevated at home and in the office. At his last nephrology appointment he was advised to discontinue hydrochlorothiazide and start hydralazine however he states he has been taking the hydrochlorothiazide and has not gotten the new medication. [facility] Medical History CKD (chronic kidney disease) Subarachnoid hemorrhage Tubular adenoma COVID-19 vaccination refused History of testicular cancer Peripheral arterial disease Hypercholesterolemia Coronary artery disease Tobacco abuse COPD (chronic obstructive pulmonary disease) Hypertension Surgical History History of surgery Hx of colonoscopy Hx of prostate biopsy History of tonsillectomy History of testicular surgery Family History Father No problems noted. Mother No problems noted. Maternal Grandmother Myocardial infarction Brother In good health Sister In good health Son In good health Son In good health Daughter In good health Sister Diabetes Social History Household Members: Spouse Housing: House Are you a primary primary care coordinator to a significant other at home: No Do you presently have visiting nurse or other home services: No Alcohol intake: never Comment: aware of trip hazard 2X A MONTHS 1 BEER Patient Tobacco Use Status: Current everyday Tobacco user Tobacco use type: Cigarette Cigarette Packs Per Day: 0.5 Cigarettes Per Day: 10 Years Smoked: 53 years- 10/PER DAY e-Cigarette/Vaping Use: Never Used Second Hand Smoke Exposure: Yes service: No Current occupational status: employed Current occupational exposures/hazards: No Cognitive needs: No Hearing needs: No Vision needs: Yes Questionnaire Thrive Questionnaire Date Thrive assessed: 08/05/23 I am a: Patient What is your living situation today?: I have a steady place to live Within the past 12 months, did the food you bought not last and you didn't have the money to get more?: Never true Within the past 12 months, did you worry whether your food would run out before you got money to buy more?: Never true Do you have trouble paying for medicines?: No Do you have trouble getting transportation to medical appointments?: No Do you have trouble paying your heating and electricity bill?: No Do you have trouble taking care of your child, family member or friend?: No Do you have trouble with day-to-day activities such as bathing, preparing meals, shopping, managing finances, etc.?: No Are you currently unemployed and looking for a job?: No Are you interested in more education?: No Please select the resources that you would like help with: None Currently or been in a relationship where the following occur: No concerns reported THRIVE Score: 0 AUDIT C Alcohol Use Questionnaire (AUDIT-C) 1. How often do you have a drink containing alcohol?: Never 2. How many drinks containing alcohol do you have on a typical day when you are drinking?: 1 or 2 3. How often do you have six or more drinks on one occasion?: Never Total Score: 0 BIANCA-7 AMB Questionnaire BIANCA-7 Date BIANCA - 7 assessed: 08/05/23 Source: Developed by Drs. Tad Angel, Jennie Nicole, Tello Mendoza and colleagues, with an educational noemi from [employer]. Review of Systems Const Denies body aches, Denies chills, Denies fever(s) and Reports headache(s) Eyes Reports no additional complaints ENT Denies dizziness and Reports headache(s) Card Denies chest pain, Denies edema, Denies irregular heart rhythm, Denies lightheadedness and Denies dyspnea Resp Denies dyspnea GI Denies nausea and Denies vomiting Reports no additional complaints Musc Reports no additional complaints and Denies abnormal gait Skin/Breast Reports system reviewed and no additional complaints, except as documented Neuro Denies abnormal gait, Denies dizziness and Reports headache(s) Psych Reports no additional complaints Physical exam (Primary Care) Vital Signs: Last Vital Signs Pulse 64 05/03/24 10:11 BP 162/90 H 05/03/24 10:11 Pulse Ox 98 05/03/24 10:11 Oxygen Delivery Method Room Air 05/03/24 10:11 BMI result Body Mass Index 18.2 Tobacco/Smoking Status: Tobacco use Status Tobacco use date assessed 08/05/23 05/03/24 10:12 Patient Tobacco Use Status Current everyday Tobacco 05/03/24 10:12 Tobacco use type Cigarette 05/03/24 10:12 e-Cigarette/Vaping Use Never Used 05/03/24 10:12 Thrive Assessment: Date of Thrive Assessment Date Thrive assessed 08/05/23 05/03/24 10:12 Currently or been in a relationship where the following occur: No concerns reported Const General: cooperative, healthy appearing, comfortable and no acute distress Orientation/consciousness: patient oriented x3 HENMT Head: Yes normocephalic Ears: hearing grossly normal bilaterally General nose exam: Normal external nose present Eyes General: appearance normal, both eyes and all related structures Conjunctivae: conjunctivae normal Neck Neck: Yes full ROM and Yes no lymphadenopathy Resp Effort & Inspection: normal respiratory effort Auscultation: clear to auscultation bilaterally, no crackles, no rales, no rhonc hi and no wheezes Cardio Rate: regular rate Rhythm: regular rhythm Skin General skin exam: no rashes or lesions noted Neuro General: patient oriented x3 Gait exam (Neuro): Normal gait present Extrem General: Yes normal to inspection, Yes full ROM and No edema Psych Affect: normal affect Attitude: cooperative Insight: Good insight present (Psych) Judgement: Good judgement present (Psych) Coding Level of Care Code Est Pt Level 4 (14772) Diagnoses CKD (chronic kidney disease) N18.9 Hypercholesterolemia E78.00 Coronary artery disease involving [place] coronary artery of [place] heart without angina pectoris I25.10 Coronary Disease-Associated Artery/Lesion type: [place] artery [place] vs. transplanted heart: [place] heart Associated angina: without angina Tobacco abuse Z72.0 Essential hypertension I10 Hypertension type: essential hypertension Assessment & Plan Assessment & Plan (1) CKD (chronic kidney disease): Code(s): N18.9 - Chronic kidney disease, unspecified Category: Medical Plan: Continue to follow with Nephrology and avoid irritants such as NSAIDs. Stay well hydrated. (2) Hypercholesterolemia: Code(s): E78.00 - Pure hypercholesterolemia, unspecified Category: Medical Plan: LDL elevated on last labs not currently on medical management and declining medication at this time. Avoid foods that are high in cholesterol such as red meat, fried foods, eggs and baked goods. Triglyceride goal of less than 150 and LDL goal of less than 100. Repeat labs in 3 months and advised patient may need to have medical management to get cholesterol under good control. (3) Coronary artery disease: Comment: saw [facility] pre-femoral/femoral bypass surgery 2022-sees PCP Dr. Chery & Dr. Veras-vascular Code(s): I25.10 - Atherosclerotic heart disease of [place] coronary artery without angina pectoris Category: Medical Qualifiers: Coronary Disease-Associated Artery/Lesion type: [place] artery [place] vs. transplanted heart: [place] heart Associated angina: without angina Qualified Code(s): I25.10 - Atherosclerotic heart disease of [place] coronary artery without angina pectoris Plan: Follow up with Dr. Veras later this month. (4) Tobacco abuse: Code(s): Z72.0 - Tobacco use Category: Medical Plan: Strongly advised to stop smoking. (5) Hypertension: Code(s): I10 - Essential (primary) hypertension Category: Medical Qualifiers: Hypertension type: essential hypertension Qualified Code(s): I10 - Essential (primary) hypertension Plan: Advised patient to discontinue hydrochlorothiazide and start hydralazine t.i.d. as this was recommended by Nephrology. Note sent to field secretary for clarification on blood pressure medications. Avoid salt intake and encourage healthy diet and regular exercise. Follow up in 3 months and continue to follow with Nephrology and vascular surgery. Plan This note was constructed using voice recognition software. While every effort has been made to ensure accuracy and appraisal analyst, still areas may have been included sometimes these areas may affect the content or meeting of the given symptoms. Total time spent caring for the patient today was thirty minutes. This includes time spent before the visit reviewing the chart, time spent during the visit, and time spent after the visit and documentation. Orders: Orders Lipid Panel 3 Months Z00.00 - Encounter for general adult medical examination without abnormal findings Medications: Refilled hydralazine 10 mg PO TID 270 tabs 0RF
== END 2024-05-03 10:54 | disposition home or self-care (01) ==
PROVIDERS: PCP Internal Medicine
DX: I12.9 Hypertensive chronic kidney disease with stage 1 through stage 4 chronic kidney disease, or unspecified chronic kidney disease (principal); N18.9 Chronic kidney disease, unspecified; E78.00 Pure hypercholesterolemia, unspecified; I25.10 Atherosclerotic heart disease of native coronary artery without angina pectoris; Z72.0 Tobacco use

== ENCOUNTER → 2024-05-03 10:08 | Outpatient (BNVA) | payer MEDICARE, SELFPAY | PROVIDERS: PCP Internal Medicine | DX: I12.9 Hypertensive chronic kidney disease with stage 1 through stage 4 chronic kidney disease, or unspecified chronic kidney disease (principal); N18.9 Chronic kidney disease, unspecified; E78.00 Pure hypercholesterolemia, unspecified; I25.10 Atherosclerotic heart disease of native coronary artery without angina pectoris; Z72.0 Tobacco use; Z71.6 Tobacco abuse counseling | CPT/HCPCS: 99212 ==

== ENCOUNTER 2024-05-17 08:41 | Outpatient (AMB) | payer MEDICARE, SELFPAY ==
[2024-05-17 08:53] VITALS: BP 170/80; BMI 18.2
--- NOTE | 2024-05-17 08:53 | MHC.OFFVIS ---
Vital Signs 05/17/24 08:53 Height 6 ft Weight 134 lb BMI 18.2 BP 170/80 H Blood Pressure Location Rt brachial Position Sitting Intake Visit Reasons: follow up per s/meri MRA Intake Note: follow up s/p MRA And/pelvis 04/20/24 for renal stenosis. Pt states his BP has been high recently. Accompanied by: Spouse Allergies Penicillins [PCN] Allergy (Intermediate, Verified 05/17/24 08:57) Hives HPI HPI follow up per Dr.Athreya suarez/p MRA: Details: Very pleasant 69-year-old gentleman well known to us for peripheral vascular disease. We had seen him in the past and had actually performed a femoral to femoral bypass on him this was dated back for 05/15/2023. He reports he is doing fairly well from that perspective. He had seen nephrology and there was concerns CKD. In addition he has uncontrolled hypertension. There is concern of ischemic nephropathy. He has undergone MRA and now presents to us for vascular evaluation. [facility] Medical History CKD (chronic kidney disease) Subarachnoid hemorrhage Tubular adenoma COVID-19 vaccination refused History of testicular cancer Peripheral arterial disease Hypercholesterolemia Coronary artery disease Tobacco abuse COPD (chronic obstructive pulmonary disease) Hypertension Surgical History History of surgery Hx of colonoscopy Hx of prostate biopsy History of tonsillectomy History of testicular surgery Family History Father No problems noted. Mother No problems noted. Maternal Grandmother Myocardial infarction Brother In good health Sister In good health Son In good health Son In good health Daughter In good health Sister Diabetes Social History Household Members: Spouse Housing: House Are you a primary care transition manager to a significant other at home: No Do you presently have visiting nurse or other home services: No Alcohol intake: never Comment: aware of trip hazard 2X A MONTHS 1 BEER Patient Tobacco Use Status: Current everyday Tobacco user Tobacco use type: Cigarette Cigarette Packs Per Day: 0.5 Cigarettes Per Day: 10 Years Smoked: 53 years- 10/PER DAY e-Cigarette/Vaping Use: Never Used Second Hand Smoke Exposure: Yes service: No Current occupational status: employed Current occupational exposures/hazards: No Cognitive needs: No Hearing needs: No Vision needs: Yes Review of Systems Const All systems reviewed & are unremarkable except as noted in HPI and below Reports no additional complaints ENT Reports Normal hearing present Card Denies chest pain, Denies chest pain at rest, Denies chest pain with activity and Denies pedal edema Resp Denies cough GI Denies abdominal pain Musc Denies abnormal gait, Denies muscle cramps and Denies radiating pain into limb Skin/Breast Denies skin ulcer and Denies wounds Neuro Reports Normal hearing present and Denies abnormal gait Psych Reports no additional complaints Physical Exam Vital Signs: Last Vital Signs BP 170/80 H 05/17/24 08:53 BMI result Body Mass Index 18.2 Const General: cooperative, healthy appearing and comfortable Orientation/consciousness: oriented to person, oriented to place and oriented to time HEENT Head: Yes normal to inspection Neck Neck: Yes normal visual inspection Carotids: no bruits Chest Chest palpation & inspection: normal inspection of the chest Resp Effort & Inspection: normal respiratory effort and able to speak in complete sentences Auscultation: clear to auscultation bilaterally, no crackles, no rales, no rhonchi and no wheezes Cardio Other: Bilateral DP signals Rate: regular rate Rhythm: regular rhythm Heart sounds: S1 normal heart sound present and S2 normal heart sound present Bruits: no carotid bruits Peripheral pulses: Peripheral pulses 2+ throughout GI Inspection: Yes normal to inspection Skin Wounds: no wounds Hair: normal Neuro General: oriented to person, oriented to place and oriented to time Cranial nerves: Yes CN's II-XII intact bilaterally and Yes Normal hearing present Cognition (Neuro): normal cognition Motor exam (neuro): 5/5 motor strength present throughout Extrem Other: venous exam: No significant superficial varicosities or spider telangiectasias, minimal edema General: No clubbing, No cyanosis and No edema Psych Appearance: grossly normal Mental Status: mental status grossly normal Speech and movement: Normal speech and movement present Results Reviewed Results Reviewed: MRA dated 04/20/2024 demonstrates concern of severe stenosis the origin the left renal artery moderate stenosis at the origin of the right Assessment & Plan Assessment & Plan (1) Renal artery stenosis: Code(s): I70.1 - Atherosclerosis of renal artery Category: Medical Plan: In short patient has concerns of renal artery stenosis. I did review the MRA. There is also concern of stenosis in his CT scan dated back to 04/04/2022. I have taken the liberty of ordering a renal artery ultrasound to try to better elucidate this. Ideally I would like to get a CTA but due to his kidney function at the current time will try to minimize dye load as much as possible. We will try to expedite his ultrasound and he will follow up as soon as possible. Please note a longitudinal relationship has been created with the patient and we have been following and surveillance this chronic condition. (2) Peripheral vascular disease: Comment: 03/24/2018 - diagnostic angiogram 11/03/2022 - femoral to femoral bypass Code(s): I73.9 - Peripheral vascular disease, unspecified Category: Medical Plan: This appears to be doing relatively well. This will be an added level of complexity has the patient does have renal artery stenosis. We will not be able to approach this from a femoral approach and may require more of an upper extremity approach. Orders: Orders US renal doppler Today I70.1 - Atherosclerosis of renal artery Coding Level of Care Code Est Pt Level 4 (81598) Diagnoses Renal artery stenosis I70.1 Peripheral vascular disease I73.9
== END 2024-05-17 09:43 | disposition home or self-care (01) ==
PROVIDERS: PCP Internal Medicine; Visit Provider Surgery Vascular Surgery
DX: I70.1 Atherosclerosis of renal artery (principal); I73.9 Peripheral vascular disease, unspecified
CPT/HCPCS: 99214

== ENCOUNTER → 2024-05-17 08:41 | Outpatient (BNVA) | payer MEDICARE, SELFPAY | PROVIDERS: PCP Internal Medicine; Visit Provider Surgery Vascular Surgery | DX: I70.1 Atherosclerosis of renal artery (principal); I73.9 Peripheral vascular disease, unspecified | CPT/HCPCS: 99212 ==

== ENCOUNTER 2024-05-20 13:22 | Outpatient (REF) | payer MEDICARE, SELFPAY ==
--- NOTE | ~2024-05-20 | US_ITS ---
EXAMINATION: ULTRASOUND OF KIDNEYS WITH RENAL ARTERY DOPPLER CLINICAL INFORMATION: Hypertension. COMPARISON: MR angiogram 04/20/2024: Limited evaluation for renal artery stenosis given overestimation of the lumen on MRI. Within the limitations of the study, there is likely severe stenosis at the origin of the left artery and at least moderate stenosis at the origin of the right artery TECHNIQUE: Ultrasound of the kidneys was performed along with color flow Doppler imaging and velocity measurements in the proximal mid and distal renal arteries. Aortic velocities were measured and renal/aortic ratios were calculated. Segmental resistive indices were measured. FINDINGS: The right kidney was smaller than the left measuring 7.9 x 4.2 x 4.3 cm with the left kidney measuring 9.0 x 5.4 x 4.7 cm. No renal stones or hydronephrosis is seen. Renal cortical thickness appears normal. Bilateral benign Bosniak class I renal cysts are noted which require no additional imaging or follow-up. A lower pole septated small subcentimeter left Bosniak class II renal cyst is present which also requires no follow-up. No solid renal masses are seen. Velocity measurements in the proximal mid and distal renal arteries are normal with the exception of the fact that the proximal right renal artery could not be seen. Velocity in the aorta is normal and, therefore, the renal aortic ratios are normal. Resistive indices were all within normal limits. Both renal veins appear patent. The bladder appears unremarkable. Incidental note made of a 0.9 cm echogenic mass in the left lobe of the liver with appearances consistent with an angiomyolipoma. US/US renal BI IMPRESSION: No ultrasonographic evidence to suggest renal artery stenosis. The right proximal renal artery was not visualized. Electronically signed by: Casimiro Fields MD 06/07/2024 07:51 PM EST
--- NOTE | ~2024-05-20 | US_ITS ---
EXAMINATION: ULTRASOUND OF KIDNEYS WITH RENAL ARTERY DOPPLER CLINICAL INFORMATION: Hypertension. COMPARISON: MR angiogram 04/20/2024: Limited evaluation for renal artery stenosis given overestimation of the lumen on MRI. Within the limitations of the study, there is likely severe stenosis at the origin of the left artery and at least moderate stenosis at the origin of the right artery TECHNIQUE: Ultrasound of the kidneys was performed along with color flow Doppler imaging and velocity measurements in the proximal mid and distal renal arteries. Aortic velocities were measured and renal/aortic ratios were calculated. Segmental resistive indices were measured. FINDINGS: The right kidney was smaller than the left measuring 7.9 x 4.2 x 4.3 cm with the left kidney measuring 9.0 x 5.4 x 4.7 cm. No renal stones or hydronephrosis is seen. Renal cortical thickness appears normal. Bilateral benign Bosniak class I renal cysts are noted which require no additional imaging or follow-up. A lower pole septated small subcentimeter left Bosniak class II renal cyst is present which also requires no follow-up. No solid renal masses are seen. Velocity measurements in the proximal mid and distal renal arteries are normal with the exception of the fact that the proximal right renal artery could not be seen. Velocity in the aorta is normal and, therefore, the renal aortic ratios are normal. Resistive indices were all within normal limits. Both renal veins appear patent. The bladder appears unremarkable. Incidental note made of a 0.9 cm echogenic mass in the left lobe of the liver with appearances consistent with an angiomyolipoma. US/US renal doppler IMPRESSION: No ultrasonographic evidence to suggest renal artery stenosis. The right proximal renal artery was not visualized. Electronically signed by: Casimiro Fields MD 06/07/2024 07:51 PM EST
== END 2024-05-20 13:23 | disposition home or self-care (01) ==
LOC: HO.US 13:22
PROVIDERS: PCP Internal Medicine; Visit Provider Surgery Vascular Surgery
DX: I70.1 Atherosclerosis of renal artery (principal)
CPT/HCPCS: 76775; 93975

== ENCOUNTER 2024-05-24 09:19 | Outpatient (AMB) | payer MEDICARE, SELFPAY ==
--- NOTE | 2024-05-24 09:26 | A.OFFVIS_ITS ---
Intake Visit Reasons: 1 wk follow up Renal US 05/20/2024 Intake Note: Patient presents for follow up renal US performed on 05/20/24 . States he cannot walk as far as he once could. Allergies Penicillins [PCN] Allergy (Intermediate, Verified 05/17/24 08:57) Hives HPI HPI 1 wk follow up Renal US 05/20/2024: Details: Very pleasant 69-year-old gentleman presents for follow-up regarding renal artery stenosis. He had previous MRA which question renal artery stenosis and now has had a renal artery ultrasound. Now presents for follow-up evaluation. He had seen nephrology and had acute kidney injury superimposed on chronic kidney injury. He has accelerated hypertension. They were concerned about his progression of disease. They had obtained an MRA which was uncertain. He now presents for follow-up with ultrasound follow-up [facility] Medical History CKD (chronic kidney disease) Subarachnoid hemorrhage Tubular adenoma COVID-19 vaccination refused History of testicular cancer Peripheral arterial disease Hypercholesterolemia Coronary artery disease Tobacco abuse COPD (chronic obstructive pulmonary disease) Hypertension Surgical History History of surgery Hx of colonoscopy Hx of prostate biopsy History of tonsillectomy History of testicular surgery Family History Father No problems noted. Mother No problems noted. Maternal Grandmother Myocardial infarction Brother In good health Sister In good health Son In good health Son In good health Daughter In good health Sister Diabetes Social History Household Members: Spouse Housing: House Are you a primary day care home provider to a significant other at home: No Do you presently have visiting nurse or other home services: No Alcohol intake: never Comment: aware of trip hazard 2X A MONTHS 1 BEER Patient Tobacco Use Status: Current everyday Tobacco user Tobacco use type: Cigarette Cigarette Packs Per Day: 0.5 Cigarettes Per Day: 10 Years Smoked: 53 years- 10/PER DAY e-Cigarette/Vaping Use: Never Used Second Hand Smoke Exposure: Yes service: No Current occupational status: employed Current occupational exposures/hazards: No Cognitive needs: No Hearing needs: No Vision needs: Yes Review of Systems Const All systems reviewed & are unremarkable except as noted in HPI and below Reports no additional complaints ENT Reports Normal hearing present Card Denies chest pain, Denies chest pain at rest, Denies chest pain with activity and Denies pedal edema Resp Denies cough GI Denies abdominal pain Musc Denies abnormal gait, Denies muscle cramps and Denies radiating pain into limb Skin/Breast Denies skin ulcer and Denies wounds Neuro Reports Normal hearing present and Denies abnormal gait Psych Reports no additional complaints Physical Exam Const General: cooperative, healthy appearing and comfortable Orientation/consciousness: oriented to person, oriented to place and oriented to time HEENT Head: Yes normal to inspection Neck Neck: Yes normal visual inspection Carotids: no bruits Chest Chest palpation & inspection: normal inspection of the chest Resp Effort & Inspection: normal respiratory effort and able to speak in complete sentences Auscultation: clear to auscultation bilaterally, no crackles, no rales, no rhonchi and no wheezes Cardio Rate: regular rate Rhythm: regular rhythm Heart sounds: S1 normal heart sound present and S2 normal heart sound present Bruits: no carotid bruits Peripheral pulses: Peripheral pulses 2+ throughout GI Inspection: Yes normal to inspection Skin Wounds: no wounds Hair: normal Neuro General: oriented to person, oriented to place and oriented to time Cranial nerves: Yes CN's II-XII intact bilaterally and Yes Normal hearing present Cognition (Neuro): normal cognition Motor exam (neuro): 5/5 motor strength present throughout Extrem Other: venous exam: No significant superficial varicosities or spider telangiectasias, minimal edema General: No clubbing, No cyanosis and No edema Psych Appearance: grossly normal Mental Status: mental status grossly normal Speech and movement: Normal speech and movement present Assessment & Plan Assessment & Plan (1) Renal artery stenosis: Code(s): I70.1 - Atherosclerosis of renal artery Category: Medical Plan: In short patient has bilateral renal artery stenosis I have discussed the pathophysiology of peripheral vascular disease with the patient. I have also discussed risk factor modification. I have reviewed the patient's MRA and there is concern for severe stenosis of the left renal artery and moderate stenosis of the right renal artery.. the patient would benefit from a renal artery angiogram with possible angioplasty, or stent. This has been discussed in detail with the patient along with risks, benefits, and complications. This includes but is not limited to bleeding, infection, heart attack, need for emergent surgical repair, limb ischemia, blood vessel damage, bleeding, puncture, kidney injury, bruising, allergic reaction, and skin reaction. The patient demonstrates a clear understanding. We will schedule for the next appropriate time. Thank you for allowing us to assist in this patient's care. (2) Peripheral vascular disease: Comment: 03/24/2018 - diagnostic angiogram 11/03/2022 - femoral to femoral bypass Code(s): I73.9 - Peripheral vascular disease, unspecified Category: Medical Plan: Patient has a functional fem-fem bypass. The concern here is access for the procedure. We will most likely go through a radial approach because of this. This was discussed with the patient as well. Thank you for allowing us to assist in his care. Please note a longitudinal relationship has been created with the patient and we have been following and surveillance this chronic condition. Coding Level of Care Code Est Pt Level 4 (83957) Complex EM visit Add On G2211 Diagnoses Renal artery stenosis I70.1 Peripheral vascular disease I73.9
== END 2024-05-24 09:43 | disposition home or self-care (01) ==
LOC: HO.HVS 09:20
PROVIDERS: PCP Internal Medicine; Visit Provider Surgery Vascular Surgery
DX: I70.1 Atherosclerosis of renal artery (principal); I73.9 Peripheral vascular disease, unspecified
CPT/HCPCS: 99214; G2211

== ENCOUNTER → 2024-05-24 09:19 | Outpatient (BNVA) | payer MEDICARE, SELFPAY | PROVIDERS: PCP Internal Medicine; Visit Provider Surgery Vascular Surgery | DX: I70.1 Atherosclerosis of renal artery (principal); I73.9 Peripheral vascular disease, unspecified; I10 Essential (primary) hypertension | CPT/HCPCS: 99212 ==

== ENCOUNTER 2024-06-01 05:48 | Day surgery (SDC) | payer MEDICARE, SELFPAY ==
[2024-06-01] VITALS (8 sets, daily range): BP systolic 166–205; BP diastolic 89–98; PULSE 64–72; RESP 16–18; TEMP 37.2; O2SAT 94–96; BMI 18.2
[2024-06-01] MEDS: 0.9 % Sodium Chloride 1,000 ML 100 ML IVCONT (07:00)
[2024-06-01 07:07] LABS: Basophils Absolute Auto 0.1 X10*3/uL (0.0-0.2); Basophils Percent Auto 0.9 % (0-2); Eosinophils Absolute Auto 0.4 X10*3/uL (0.0-0.4); Eosinophils Percent Auto 8.1 % (0-4); Hematocrit 38.7 % (42.0-52.0); Hemoglobin 13.2 g/dl (14.0-18.0); Imm Gran Abs Auto 0.01 X10*3/uL (0.00-0.03); Imm Gran Pct Auto 0.2 % (0.0-0.4); Lymphocytes Absolute Auto 1.2 X10*3/uL (1.2-4.9); Lymphocytes Percent Auto 22.1 % (20-40); MANUAL DIFF FLAG SCAN; Mean Corpuscular HGB Conc 34.1 g/dl (31.0-36.0); Mean Corpuscular Hemoglobin 29.4 pg (27.0-33.0); Mean Corpuscular Volume 86.2 fL (80.0-98.0); Mean Platelet Volume 10.1 fL (9.4-12.4); Monocytes Absolute Auto 1.2 X10*3/uL (0.1-1.2); Monocytes Percent Auto 22.7 % (2-11); Neutrophils Absolute Auto 2.5 x10*3/uL (2.0-8.3); Platelet Count 204 X10*3/uL (160-400); Red Blood Count 4.49 X10*6/uL (4.60-5.80); Red Cell Distribution Width 14.1 % (11.0-16.0); SCAN SMEAR FLAG 1; White Blood Count 5.4 X10*3/uL (4.8-10.8)
[2024-06-01 07:09] LABS: Blood Urea Nitrogen 47 mg/dL (9-16); Creatinine Clr Calc Pharmacy 16.4; Estimated Glomerular Filt Rate 16
[2024-06-01 08:09] LABS: SLIDE REVIEW VERIFIED
--- NOTE | 2024-06-01 11:04 | W.PM.OPN ---
Operative Note Operative Note Date of Service: 06/01/24 Narrative: Angiogram report from [facility] Preoperative diagnosis: Bilateral renal artery stenosis Postoperative diagnosis: Same Procedure: 1. Ultrasound-guided right radial artery access 2. Aortogram with selective right and left renal artery angiogram 3. Stent of right renal artery 4. Stent of left renal artery Surgeon:Regulo Veras M.D., FACS, RPVI Deicer Repairer Pneumatic:None Anesthesia: Local with moderate conscious sedation. Total intraservice moderate sedation time was 125 minutes. I monitored the patient's level of consciousness and physiologic status continuously throughout the procedure. Specimens:none Drains:none Estimated blood loss: Less than 10 ml Implant: Medtronic visi Pro 6 x 17 and 6 x 27 Indications: Complex 69-year-old gentleman with uncontrolled hypertension chronic renal insufficiency upon workup was noted to have bilateral renal artery stenosis on ultrasound. He had a prior MRA as well. He now presents for endovascular intervention The patient has signed the informed consent after reviewing risks, complications, benefits, and alternatives previously discussed with the patient. The patient was given the opportunity to ask any additional questions or voice any concerns. All questions were answered to the patient's satisfaction. Procedure in detail: Patient was brought to the angiography suite prior to which a time-out was called for patient identification and site verification. Right upper extremity was prepped and draped in the standard surgical fashion under ultrasound guidance right radial artery was accessed using micropuncture needle wire and subsequently 5 [place] sheath. Once in position 5 mg of verapamil and a 100 mcg of nitroglycerin was instilled wire the 5 [place] sheath. Once in position 5000 units of systemic heparin was administered. Throughout the procedure and additional 2000 units of heparin was administered to achieve therapeutic ACT. Once this was accomplished we advanced a Bentson wire up through the radial artery from the right upper extremity over the aortic arch into the abdominal aorta. We followed this with a Navicross catheter. Once in position we did selective right and left renal artery angiograms. It was identified bilateral high-grade renal artery stenosis. We 1st turned our attention to the right side and advanced our wire right into the right renal artery which was an 035 glidewire Advantage. At this time we exchanged out for a 6 [place] long 105 cm sheath that was brought up to the level of the renals. We then brought in our Navicross catheter we confirmed true lumen and instilled the catheter with contrast. Multiple orthogonal views of this was then undertaken. We then deployed a visi Pro 6 x 27 balloon expandable stent. Once this was accomplished completion angiogram demonstrated good result of this side. Once this was done we withdrew the wire and catheter. We then approached the left side. There was significant difficulty in traversing the ostium of the left side. We had to go down to an 014 wire. We 1st plasty this area with a 2.5 by 20 balloon. We subsequently needed a 3.5 x 40 balloon. We were then able to widen this and advance a advantage catheter 035 through this area. We placed a Glidewire advantage through this area which was an 035 wire. We subsequently stented this with a 6 x 17 balloon expandable visi Pro stent. Completion angiogram demonstrated excellent result. We then with hiram and did an aortogram which demonstrated good flow through bilateral renals and calcified but normal aorta. At this time we placed a TR band on the patient's wrist. We withdrew the catheter and wire. Adequate hemostasis was achieved. The fingers were warm with good capillary refill. Patient tolerated the procedure well and was brought back to recovery with stable vitals. Interpretation of films: 1. Ultrasound demonstrates appropriate radial artery access site. Vessel was patent with minimal stenosis. Needle entry was visualized. Image of ultrasound was saved. 2. Aortogram demonstrates appropriate caliber aorta. Atherosclerotic disease throughout the aorta it was calcified it was minimal disease throughout. 3. Iliac images demonstrate known occlusion of the right 4. Right renal artery demonstrated high-grade stenosis at the origin. Post stenting demonstrated excellent flow left renal artery had similar high-grade stenosis at the origin post stenting demonstrated excellent flow. Conclusion: 1. Successful stenting of bilateral renal arteries. 2. Anticoagulation status: Aspirin and Plavix for 6 months This note is constructed using voice recognition software. While every effort has been made to ensure accuracy, capacity manager errors may have been included. Thank you for allowing me to participate in the care of your patient. Yours sincerely, Regulo Veras MD, FACS, R.P.V.I.
[2024-06-02 14:41] LABS: ACT 302 Celite s (79-173)
[2024-06-02 14:41] LABS: ACT 211 Celite s (79-173)
[2024-06-02 14:41] LABS: ACT 192 Celite s (79-173)
== END 2024-06-01 15:00 | disposition home or self-care (01) ==
PROVIDERS: PCP Internal Medicine; Visit Provider Surgery Vascular Surgery
DX: I70.1 Atherosclerosis of renal artery (principal); I73.9 Peripheral vascular disease, unspecified; I12.9 Hypertensive chronic kidney disease with stage 1 through stage 4 chronic kidney disease, or unspecified chronic kidney disease; N18.9 Chronic kidney disease, unspecified; N17.9 Acute kidney failure, unspecified; Z85.47 Personal history of malignant neoplasm of testis; I25.10 Atherosclerotic heart disease of native coronary artery without angina pectoris; E78.00 Pure hypercholesterolemia, unspecified; J44.9 Chronic obstructive pulmonary disease, unspecified; Z88.0 Allergy status to penicillin; F17.210 Nicotine dependence, cigarettes, uncomplicated
CPT/HCPCS: 36415; 37236; 37237; 37239; 76937; 82565; 84520; 85025; 85347; 99152; 99153; C1725; C1769; C1876; C1887; C1894; J1644; J2250; J2305; J2310; J3010; Q9967

== ENCOUNTER → 2024-06-01 05:48 | Outpatient (BNV) | payer MEDICARE, SELFPAY | PROVIDERS: PCP Internal Medicine; Visit Provider Surgery Vascular Surgery | DX: I70.1 Atherosclerosis of renal artery (principal) | CPT/HCPCS: 37236; 76937; 99152 ==

== ENCOUNTER 2024-06-16 12:54 | Outpatient (AMB) | payer MEDICARE, SELFPAY ==
--- NOTE | 2024-06-16 13:07 | MHC.OFFVIS ---
Intake Visit Reasons: follow up s/p Renal US 05/17/24 Intake Note: Patient presents for follow up s/p renal US. No vascular complaints. Accompanied by: Spouse Allergies Penicillins [PCN] Allergy (Intermediate, Verified 06/16/24 13:12) Hives HPI HPI follow up s/p Renal US 05/17/24: Details: Pleasant 69-year-old gentleman presents for follow-up regarding bilateral renal artery stenting. This was done through a right radial approach. Reports he is doing fairly well. He now presents for routine postprocedure follow-up. Of note right upper extremity swelling and bruising has decreased significantly. He is doing significantly better. [facility] Medical History CKD (chronic kidney disease) Subarachnoid hemorrhage Tubular adenoma COVID-19 vaccination refused History of testicular cancer Peripheral arterial disease Hypercholesterolemia Coronary artery disease Tobacco abuse COPD (chronic obstructive pulmonary disease) Hypertension Surgical History History of surgery Hx of colonoscopy Hx of prostate biopsy History of tonsillectomy History of testicular surgery Family History Father No problems noted. Mother No problems noted. Maternal Grandmother Myocardial infarction Brother In good health Sister In good health Son In good health Son In good health Daughter In good health Sister Diabetes Social History Household Members: Spouse Housing: House Are you a primary progressive care manager to a significant other at home: No Do you presently have visiting nurse or other home services: No Alcohol intake: never Patient Tobacco Use Status: Current everyday Tobacco user Tobacco use type: Cigarette Cigarette Packs Per Day: 0.5 Cigarettes Per Day: 10 Years Smoked: 53 years- 10/PER DAY e-Cigarette/Vaping Use: Never Used Second Hand Smoke Exposure: Yes service: No Current occupational status: employed Current occupational exposures/hazards: No Cognitive needs: No Hearing needs: No Vision needs: Yes Review of Systems Const All systems reviewed & are unremarkable except as noted in HPI and below Reports no additional complaints ENT Reports Normal hearing present Card Denies chest pain, Denies chest pain at rest, Denies chest pain with activity and Denies pedal edema Resp Denies cough GI Denies abdominal pain Musc Denies abnormal gait, Denies muscle cramps and Denies radiating pain into limb Skin/Breast Denies skin ulcer and Denies wounds Neuro Reports Normal hearing present and Denies abnormal gait Psych Reports no additional complaints Physical Exam Const General: cooperative, healthy appearing and comfortable Orientation/consciousness: oriented to person, oriented to place and oriented to time HEENT Head: Yes normal to inspection Neck Neck: Yes normal visual inspection Carotids: no bruits Chest Chest palpation & inspection: normal inspection of the chest Resp Effort & Inspection: normal respiratory effort and able to speak in complete sentences Auscultation: clear to auscultation bilaterally, no crackles, no rales, no rhonchi and no wheezes Cardio Rate: regular rate Rhythm: regular rhythm Heart sounds: S1 normal heart sound present and S2 normal heart sound present Bruits: no carotid bruits Peripheral pulses: Peripheral pulses 2+ throughout GI Inspection: Yes normal to inspection Skin Wounds: no wounds Hair: normal Neuro General: oriented to person, oriented to place and oriented to time Cranial nerves: Yes CN's II-XII intact bilaterally and Yes Normal hearing present Cognition (Neuro): normal cognition Motor exam (neuro): 5/5 motor strength present throughout Extrem Other: venous exam: No significant superficial varicosities or spider telangiectasias, minimal edema General: No clubbing, No cyanosis and No edema Psych Appearance: grossly normal Mental Status: mental status grossly normal Speech and movement: Normal speech and movement present Assessment & Plan Assessment & Plan (1) Renal artery stenosis: Comment: 06/01/2024 bilateral renal artery stenting through right radial approach Code(s): I70.1 - Atherosclerosis of renal artery Category: Medical Plan: in short patient has done extremely well with bilateral renal artery stenting. He is scheduled for follow-up with Nephrology. Hopefully we will be able to wean him off of his antihypertensives and it will be a little better controlled. We will schedule him for 3 month surveillance of his renal arteries. (2) Peripheral vascular disease: Comment: 03/24/2018 - diagnostic angiogram 11/03/2022 - femoral to femoral bypass Code(s): I73.9 - Peripheral vascular disease, unspecified Category: Medical Plan: He is scheduled for surveillance follow-up regarding his peripheral vascular disease in July. He is on aspirin and Plavix. At the current time he is not on a statin. This patient has atherosclerotic cardiovascular disease and may benefit from a high-intensity statin based on the 2019 ACC and aha guidelines. Once on a high-intensity statin would monitor LFTs and renal function. Thank you for allowing us to assist in his care. Orders: Orders US renal doppler 3 Months I70.1 - Atherosclerosis of renal artery Coding Level of Care Code Est Pt Level 4 (18534) Complex EM visit Add On G2211 Diagnoses Renal artery stenosis I70.1 Peripheral vascular disease I73.9
== END 2024-06-16 13:49 | disposition home or self-care (01) ==
PROVIDERS: PCP Internal Medicine; Visit Provider Surgery Vascular Surgery
DX: I70.1 Atherosclerosis of renal artery (principal); I73.9 Peripheral vascular disease, unspecified
CPT/HCPCS: 99214; G2211

== ENCOUNTER → 2024-06-16 12:54 | Outpatient (BNVA) | payer MEDICARE, SELFPAY | PROVIDERS: PCP Internal Medicine; Visit Provider Surgery Vascular Surgery | DX: I70.1 Atherosclerosis of renal artery (principal); I73.9 Peripheral vascular disease, unspecified | CPT/HCPCS: 99212 ==

== ENCOUNTER 2024-07-01 09:14 | Outpatient (AMB) | payer MEDICARE, SELFPAY ==
--- NOTE | 2024-07-01 09:37 | HO.NEPHOV_ITS ---
Vital Signs 07/01/24 09:39 Height 6 ft Weight 142 lb 6 oz BMI 19.3 BP 206/100 H Blood Pressure Location Lt brachial Position Sitting Pulse 77 Pulse Source Pulse Oximeter Pulse Oximetry (%) 97 Oxygen Delivery Method Room Air Intake Visit Reasons: Medication Concerns, requested to see pt. Analyst Competitive Intelligence Required: No Accompanied by: Spouse Allergies Penicillins [PCN] Allergy (Intermediate, Verified 07/01/24 09:39) Hives HPI Comments Details: 68-year-old man with a history of hypertension and significant vascular disease who had a baseline creatinine about 1.0- 1.2 mg/dL in October of 2022. In June of 2023 creatinine went up to 1.6 with it going upto 1.9 in July and 2.63 in November 2023. He also had been on hydrochlorothiazide 50 mg at that time which was reduced to 25 mg due to hypokalemia.He has a history of testicularcancer and underwent radiation several years ago which he attributes to his vascular disease. He has H/O fem- fem bypass surgery by Dr. Veras. Apparently he had a coronary angiogram in [facility] which was reportedly normal.(I larissa browning not seen the results) He has a history of smoking for several years. He continues to smoke cigarettes despite peripheral vascular disease and dyslipidemia.He has no new rash. He was seen in ER as well as by my colleague for accelerated hypertension. At that time his serum creatinine bumped up to 3.19. Previously CT angiogram of the abdomen in 2021 showed bilateral atherosclerosis disease of renal arteries.He underwent angiography and B/L renal artery stenting. He continues have headache on and off. He was prescribed hydralazine at the last visit which he could not tolerate due to side effects. His BP continues to be very high. He has not any renal function repeated for close to a month. He was seen today as an urgent visit and he was accompanied by his Viv. [facility] Medical History CKD (chronic kidney disease) Subarachnoid hemorrhage Tubular adenoma COVID-19 vaccination refused History of testicular cancer Peripheral arterial disease Hypercholesterolemia Coronary artery disease Tobacco abuse COPD (chronic obstructive pulmonary disease) Hypertension Surgical History History of surgery Hx of colonoscopy Hx of prostate biopsy History of tonsillectomy History of testicular surgery Family History Father No problems noted. Mother No problems noted. Maternal Grandmother Myocardial infarction Brother In good health Sister In good health Son In good health Son In good health Daughter In good health Sister Diabetes Social History Household Members: Spouse Housing: House Are you a primary healthcare social worker to a significant other at home: No Do you presently have visiting nurse or other home services: No Alcohol intake: never Patient Tobacco Use Status: Current everyday Tobacco user Tobacco use type: Cigarette Cigarette Packs Per Day: 0.5 Cigarettes Per Day: 10 Years Smoked: 53 years- 10/PER DAY e-Cigarette/Vaping Use: Never Used Second Hand Smoke Exposure: Yes service: No Current occupational status: employed Current occupational exposures/hazards: No Cognitive needs: No Hearing needs: No Vision needs: Yes Review of Systems Const All systems reviewed & are unremarkable except as noted in HPI and below Physical Exam Vital Signs: Last Vital Signs Pulse 77 07/01/24 09:39 BP 206/100 H 07/01/24 09:39 Pulse Ox 97 07/01/24 09:39 Oxygen Delivery Method Room Air 07/01/24 09:39 BMI result Body Mass Index 19.3 Const General: comfortable and no acute distress Orientation/consciousness: patient oriented x3 HEENT Head: Yes normocephalic Mouth: Normal oral and palatal mucosa present Eyes EOM: EOMs intact bilaterally Neck Neck: Yes supple Resp Auscultation: clear to auscultation bilaterally Cardio Jugular venous distension: no JVD Rate: regular rate GI Palpation (GI): Soft to palpation Auscultation: normal bowel sounds General: Yes no CVA tenderness Back/Spine/Pelvis Back: no CVA tenderness Skin General skin exam: no rashes or lesions noted Neuro General: patient oriented x3 and moves all extremities Extrem General: Yes no pedal edema Results Reviewed Nephrology Results: Hgb 13.9 g/dl (14.0-18.0) L 07/02/24 WBC 9.3 X10*3/uL (4.8-10.8) 07/02/24 Plt Count 147 X10*3/uL (160-400) L 07/02/24 Sodium 137 mmol/L (135-145) 07/02/24 Potassium 3.3 mmol/L (3.3-5.1) 07/02/24 Chloride 100 mmol/L (96-108) 07/02/24 Carbon Dioxide 24 mmol/L (22-29) 07/02/24 BUN 76 mg/dL (9-16) H 07/02/24 Creatinine 4.49 mg/dL (0.5-1.4) H* 07/02/24 Calcium 8.7 mg/dL (8.4-10.2) 07/02/24 Renal US 05/20/24 Assessment & Plan Assessment & Plan (1) CKD stage 3b, GFR 30-44 ml/min: Code(s): N18.32 - Chronic kidney disease, stage 3b Category: Medical (2) Hypokalemia: Code(s): E87.6 - Hypokalemia Category: Medical (3) Hypertension: Code(s): I10 - Essential (primary) hypertension Category: Medical Qualifiers: Hypertension type: essential hypertension Qualified Code(s): I10 - Essential (primary) hypertension Plan 69-year-old man with a history of longstanding hypertension dyslipidemia and peripheral vascular disease in the setting of chronic smoking currently has progressive chronic kidney disease, likely from ischemic nephropathy. He is S/P B/L renal artery stenting. Differential diagnosis is embolic disease( cholesterol/athero embolic). He did not tolerate hydralazine. His BP is not at goal. He avoids NSAID's. I started him on Spironolactone and ordered stat blood work, Renal biopsy can be challenging given he is on Plavix. He is going to be seen in a week. Time spent reviewing his records, encounter, documentation 47 minutes. Further management is pending evolving data Orders: Orders Creatinine Today N18.32 - Chronic kidney disease, stage 3b Blood Urea Nitrogen Today N18.32 - Chronic kidney disease, stage 3b Electrolytes Today N18.32 - Chronic kidney disease, stage 3b Medications: New spironolactone 25 mg PO DAILY 30 tabs 2RF Discontinued hydralazine Discontinued Reason: Doctor's Order 10 mg PO TID 270 tabs 0RF Coding Level of Care Code Est Pt Level 5 (57685) Diagnoses CKD stage 3b, GFR 30-44 ml/min N18.32 Hypokalemia E87.6 Essential hypertension I10 Hypertension type: essential hypertension
[2024-07-01 09:39] VITALS: BP 206/100; PULSE 77; O2SAT 97; BMI 19.3
== END 2024-07-01 10:11 | disposition home or self-care (01) ==
PROVIDERS: PCP Internal Medicine; Visit Provider Internal Medicine Nephrology
DX: I12.9 Hypertensive chronic kidney disease with stage 1 through stage 4 chronic kidney disease, or unspecified chronic kidney disease (principal); N18.32 Chronic kidney disease, stage 3b; E87.6 Hypokalemia
CPT/HCPCS: 99215

== ENCOUNTER → 2024-07-01 09:14 | Outpatient (BNVA) | payer MEDICARE, SELFPAY | PROVIDERS: PCP Internal Medicine; Visit Provider Internal Medicine Nephrology | DX: I12.9 Hypertensive chronic kidney disease with stage 1 through stage 4 chronic kidney disease, or unspecified chronic kidney disease (principal); N18.32 Chronic kidney disease, stage 3b; E87.6 Hypokalemia | CPT/HCPCS: 99212 ==

== ENCOUNTER 2024-07-02 08:54 | Outpatient (REF) | payer MEDICARE, SELFPAY ==
[2024-07-02 09:46] LABS: MANUAL DIFF FLAG NO
[2024-07-02 10:20] LABS: Basophils Percent Auto 0.4 % (0-2); Eosinophils Absolute Auto 0.5 X10*3/uL (0.0-0.4); Eosinophils Percent Auto 4.9 % (0-4); Hematocrit 40.1 % (42.0-52.0); Hemoglobin 13.9 g/dl (14.0-18.0); Imm Gran Abs Auto 0.03 X10*3/uL (0.00-0.03); Imm Gran Pct Auto 0.3 % (0.0-0.4); Lymphocytes Absolute Auto 1.2 X10*3/uL (1.2-4.9); Lymphocytes Percent Auto 13.2 % (20-40); Mean Corpuscular HGB Conc 34.7 g/dl (31.0-36.0); Mean Corpuscular Hemoglobin 29.4 pg (27.0-33.0); Mean Corpuscular Volume 84.8 fL (80.0-98.0); Mean Platelet Volume 9.5 fL (9.4-12.4); Monocytes Absolute Auto 0.8 X10*3/uL (0.1-1.2); Monocytes Percent Auto 9.1 % (2-11); Neutrophils Absolute Auto 6.7 x10*3/uL (2.0-8.3); Neutrophils Percent Auto 72.1 % (45-73); Platelet Count 147 X10*3/uL (160-400); Red Blood Count 4.73 X10*6/uL (4.60-5.80); Red Cell Distribution Width 14.4 % (11.0-16.0); White Blood Count 9.3 X10*3/uL (4.8-10.8)
[2024-07-02 11:02] LABS: Prostate Specific Antigen Scr 1.93 ng/mL (<0.05-4.0)
[2024-07-02 11:06] LABS: Free T4 (Free Thyroxine) 0.87 ng/dL (0.71-1.85)
[2024-07-02 11:09] LABS: Anion Gap 16 (12-20); Blood Urea Nitrogen 76 mg/dL (9-16); Carbon Dioxide 24 mmol/L (22-29); Chloride 100 mmol/L (96-108); Cholesterol 187 mg/dL (<200); HDL Cholesterol 36 mg/dL (>40); LDL Cholesterol Calculated 118 mg/dL (<100); Potassium 3.3 mmol/L (3.3-5.1); Sodium 137 mmol/L (135-145); Triglycerides 165 mg/dL (<150)
[2024-07-02 11:10] LABS: Thyroid Stimulating Hormone 6.65 uIU/mL (0.32-4.0)
[2024-07-02 11:38] LABS: Alanine Aminotransferase 8 U/L (0-40); Albumin Level 3.5 g/dL (3.5-5.0); Alkaline Phosphatase 76 U/L (39-117); Aspartate Amino Transferase 22 U/L (5-37); Bilirubin Total 0.6 mg/dL (0.0-1.0); Calcium 8.7 mg/dL (8.4-10.2); Glucose Random 137 mg/dL (60-115); Total Protein 6.4 g/dL (6.5-8.0)
[2024-07-02 12:00] LABS: Estimated Glomerular Filt Rate 13
== END 2024-07-02 08:55 | disposition home or self-care (01) ==
LOC: HO.LAB 08:54
PROVIDERS: Absent Provider Internal Medicine Nephrology; PCP Internal Medicine; Visit Provider Internal Medicine
DX: Z00.00 Encounter for general adult medical examination without abnormal findings (principal); Z12.5 Encounter for screening for malignant neoplasm of prostate; N18.9 Chronic kidney disease, unspecified; C61 Malignant neoplasm of prostate
CPT/HCPCS: 36415; 80051; 80053; 80061; 82565; 84153; 84439; 84443; 84520; 85025

== ENCOUNTER 2024-07-04 12:33 | Outpatient (REF) | payer MEDICARE, SELFPAY ==
[2024-07-04 12:47] LABS: Appearance Urine Clear; Color Urine Yellow; Glucose Urine UA 100 mg/dL (Negative); Leukocyte Esterase Urine Negative (Negative); Nitrite Urine Negative (Negative); PH 5.5 (5.0-9.0); Specific Gravity - Urine 1.015 (1.005-1.025); UMIC TRIGGER UACC YES; Urine Blood Negative (Negative); Urine Ketones Negative (Negative); Urine Protein 300 (3+) mg/dL (Neg-Trace)
[2024-07-04 12:49] LABS: Bacteria Urine None Seen (None Seen); Hyaline Casts Urine 0-2 /LPF (0-2); RBC Urine 0-2 /HPF (0-2); Squamous Epithelial Cell Urine 0-2 /HPF (0-2); WBC Urine 0-5 /HPF (0-5)
== END 2024-07-04 12:34 | disposition home or self-care (01) ==
LOC: HO.LNP 12:33
PROVIDERS: Visit Provider Internal Medicine
DX: R30.0 Dysuria (principal); N18.9 Chronic kidney disease, unspecified
CPT/HCPCS: 81001

== ENCOUNTER 2024-07-13 09:20 | Outpatient (REF) | payer MEDICARE, SELFPAY ==
[2024-07-13 11:29] LABS: Alanine Aminotransferase 24 U/L (0-40); Albumin Level 3.4 g/dL (3.5-5.0); Alkaline Phosphatase 97 U/L (39-117); Anion Gap 10 (12-20); Aspartate Amino Transferase 24 U/L (5-37); Bilirubin Total 0.3 mg/dL (0.0-1.0); Blood Urea Nitrogen 55 mg/dL (9-16); Calcium 8.5 mg/dL (8.4-10.2); Carbon Dioxide 27 mmol/L (22-29); Chloride 103 mmol/L (96-108); Estimated Glomerular Filt Rate 14; Glucose Random 102 mg/dL (60-115); Sodium 136 mmol/L (135-145); Total Protein 6.5 g/dL (6.5-8.0)
== END 2024-07-13 09:21 | disposition home or self-care (01) ==
LOC: HO.10HDL 09:20
PROVIDERS: Visit Provider Internal Medicine Nephrology
DX: N18.9 Chronic kidney disease, unspecified (principal)
CPT/HCPCS: 36415; 80053

== ENCOUNTER 2024-07-15 09:26 | Outpatient (REF) | payer MEDICARE, SELFPAY ==
[2024-07-15 10:59] LABS: Appearance Urine Clear; Color Urine Yellow; Glucose Urine UA Negative (Negative); Leukocyte Esterase Urine Negative (Negative); Nitrite Urine Negative (Negative); PH 6.5 (5.0-9.0); UMIC TRIGGER UACC YES; Urine Blood Negative (Negative); Urine Ketones Negative (Negative); Urine Protein 100 (2+) mg/dL (Neg-Trace)
[2024-07-15 11:01] LABS: Bacteria Urine None Seen (None Seen); Hyaline Casts Urine 0-2 /LPF (0-2); RBC Urine 0-2 /HPF (0-2); Squamous Epithelial Cell Urine 0-2 /HPF (0-2); WBC Urine 0-5 /HPF (0-5)
== END 2024-07-15 09:27 | disposition home or self-care (01) ==
LOC: HO.10HDLNP 09:26
PROVIDERS: Visit Provider Internal Medicine
DX: I12.9 Hypertensive chronic kidney disease with stage 1 through stage 4 chronic kidney disease, or unspecified chronic kidney disease (principal); N18.32 Chronic kidney disease, stage 3b
CPT/HCPCS: 81001

== ENCOUNTER 2024-07-15 09:30 | Outpatient (AMB) | payer MEDICARE, SELFPAY ==
--- NOTE | 2024-07-15 09:40 | HO.NEPHOV ---
Vital Signs 07/15/24 09:42 Height 6 ft Weight 139 lb 4 oz BMI 18.9 BP 200/100 H Blood Pressure Location Lt brachial Position Sitting Pulse 83 Pulse Source Pulse Oximeter Pulse Oximetry (%) 98 Oxygen Delivery Method Room Air Intake Visit Reasons: CKD-Conf Power Checker Required: No Accompanied by: Self / Same As Patient Allergies Penicillins [PCN] Allergy (Intermediate, Verified 07/15/24 09:41) Hives HPI Comments Details: 68-year-old man with a history of hypertension and significant vascular disease who had a baseline creatinine about 1.0- 1.2 mg/dL in October of 2022. In June of 2023 creatinine went up to 1.6 with it going upto 1.9 in July and 2.63 in November 2023. He also had been on hydrochlorothiazide 50 mg at that time which was reduced to 25 mg due to hypokalemia.He has a history of testicular cancer and underwent radiation several years ago which he attributes to his vascular disease. He has H/O fem- fem bypass surgery by Dr. Veras. Apparently he had a coronary angiogram in [facility] which was reportedly normal.(I have not seen the results). He has a history of smoking for several years. He continues to smoke cigarettes despite peripheral vascular disease and dyslipidemia.He has no new rash. He was seen in ER as well as by my colleague for accelerated hypertension. At that time his serum creatinine bumped up to 3.19. Previously CT angiogram of the abdomen in 2021 showed bilateral atherosclerosis disease of renal arteries.He underwent angiography and B/L renal artery stenting. He was prescribed hydralazine at the last visit which he could not tolerate due to side effects. His BP continue to be uncontrolled even after initiation of Spironolactone at the last visit [facility] Medical History CKD (chronic kidney disease) Subarachnoid hemorrhage Tubular adenoma COVID-19 vaccination refused History of testicular cancer Peripheral arterial disease Hypercholesterolemia Coronary artery disease Tobacco abuse COPD (chronic obstructive pulmonary disease) Hypertension Surgical History History of surgery Hx of colonoscopy Hx of prostate biopsy History of tonsillectomy History of testicular surgery Family History Father No problems noted. Mother No problems noted. Maternal Grandmother Myocardial infarction Brother In good health Sister In good health Son In good health Son In good health Daughter In good health Sister Diabetes Social History Household Members: Spouse Housing: House Are you a primary eye care professional to a significant other at home: No Do you presently have visiting nurse or other home services: No Alcohol intake: never Patient Tobacco Use Status: Current everyday Tobacco user Tobacco use type: Cigarette Cigarette Packs Per Day: 0.5 Cigarettes Per Day: 10 Years Smoked: 53 years- 10/PER DAY e-Cigarette/Vaping Use: Never Used Second Hand Smoke Exposure: Yes service: No Current occupational status: employed Current occupational exposures/hazards: No Cognitive needs: No Hearing needs: No Vision needs: Yes Physical Exam Vital Signs: Last Vital Signs Pulse 83 07/15/24 09:42 BP 200/100 H 07/15/24 09:42 Pulse Ox 98 07/15/24 09:42 Oxygen Delivery Method Room Air 07/15/24 09:42 BMI result Body Mass Index 18.9 Const General: comfortable and no acute distress Orientation/consciousness: patient oriented x3 HEENT Head: Yes normocephalic Mouth: Normal oral and palatal mucosa present Eyes EOM: EOMs intact bilaterally Neck Neck: Yes supple Resp Auscultation: clear to auscultation bilaterally Cardio Jugular venous distension: no JVD Rate: regular rate GI Palpation (GI): Soft to palpation Auscultation: normal bowel sounds General: Yes no CVA tenderness Back/Spine/Pelvis Back: no CVA tenderness Skin General skin exam: no rashes or lesions noted Neuro General: patient oriented x3 and moves all extremities Extrem General: Yes no pedal edema Results Reviewed Nephrology Results: Hgb 13.9 g/dl (14.0-18.0) L 07/02/24 WBC 9.3 X10*3/uL (4.8-10.8) 07/02/24 Plt Count 147 X10*3/uL (160-400) L 07/02/24 Sodium 136 mmol/L (135-145) 07/13/24 Potassium 4.0 mmol/L (3.3-5.1) 07/13/24 Chloride 103 mmol/L (96-108) 07/13/24 Carbon Dioxide 27 mmol/L (22-29) 07/13/24 BUN 55 mg/dL (9-16) H 07/13/24 Creatinine 4.19 mg/dL (0.5-1.4) H* 07/13/24 Calcium 8.5 mg/dL (8.4-10.2) 07/13/24 Urine Protein 300 (3+) mg/dL (Neg-Trace) H 07/04/24 Renal US 05/20/24 Assessment & Plan Assessment & Plan (1) CKD stage 3b, GFR 30-44 ml/min: Code(s): N18.32 - Chronic kidney disease, stage 3b Category: Medical (2) Hypertension: Code(s): I10 - Essential (primary) hypertension Category: Medical Qualifiers: Hypertension type: essential hypertension Qualified Code(s): I10 - Essential (primary) hypertension Plan 69-year-old man with a history of longstanding hypertension dyslipidemia and peripheral vascular disease in the setting of chronic smoking currently has progressive chronic kidney disease, likely from ischemic nephropathy. He is S/P B/L renal artery stenting. Differential diagnosis is embolic disease( cholesterol/athero embolic). He did not tolerate hydralazine. His BP is not at goal. He avoids NSAID's. I increased his Spironolactone to 50 mg daily & switched his Amlodipine to Nifedipine 60 mg daily . I ordered follow up blood work. Renal biopsy can be challenging given he is on Plavix. Follow up given Orders: Orders Creatinine 2 Weeks N18.32 - Chronic kidney disease, stage 3b Electrolytes 2 Weeks N18.32 - Chronic kidney disease, stage 3b Blood Urea Nitrogen 2 Weeks N18.32 - Chronic kidney disease, stage 3b Medications: New nifedipine ER 60 mg PO DAILY 30 tabs 3RF Discontinued amlodipine Discontinued Reason: Doctor's Order 10 mg PO DAILY 30 tabs 2RF Coding Level of Care Code Est Pt Level 4 (11266) Diagnoses CKD stage 3b, GFR 30-44 ml/min N18.32 Essential hypertension I10 Hypertension type: essential hypertension
[2024-07-15 09:42] VITALS: BP 200/100; PULSE 83; O2SAT 98; BMI 18.9
== END 2024-07-15 10:11 | disposition home or self-care (01) ==
PROVIDERS: PCP Internal Medicine; Visit Provider Internal Medicine Nephrology
DX: I12.9 Hypertensive chronic kidney disease with stage 1 through stage 4 chronic kidney disease, or unspecified chronic kidney disease (principal); N18.32 Chronic kidney disease, stage 3b
CPT/HCPCS: 99214

== ENCOUNTER 2024-07-25 13:23 | Outpatient (REF) | payer MEDICARE, SELFPAY ==
--- NOTE | ~2024-07-25 | US_ITS ---
EXAMINATION: US NONINVASIVE ASSESSMENT OF THE BOTH LOWER EXTREMITY WITH ARTERIAL DUPLEX AND ANKLE BRACHIAL INDICES (ABIS) CLINICAL INFORMATION: Peripheral vascular disease. Status post femorofemoral bypass. Hypertension. Hyperlipidemia. COMPARISON: None available. TECHNIQUE: Duplex Doppler techniques with waveform analysis and measurement of velocities in the common femoral, profunda femoris, superficial femoral, popliteal and tibial arteries were performed. In addition, ankle pulse volume recordings, ankle pressure measurements and ankle brachial indices were obtained of the both lower extremity arterial system. The study was performed only at rest. FINDINGS: NONINVASIVE ASSESSMENT OF THE ARTERIES OF BILATERAL LOWER EXTREMITIES WITH ABIs: RIGHT LEG: Ankle-brachial index: More than 200 Ankle PVR: More than 200 cm/s LEFT LEG: Ankle-brachial index: More than 200 Left ankle PVR: More than 200 cm/s LAUREANO Reference: 0.9 - 1.4 = normal - no significant arterial disease 0.7 - 0.89 = mild peripheral arterial disease 0.51 - 0.69 = moderate peripheral arterial disease 0.50 = severe peripheral arterial disease RIGHT LOWER EXTREMITY DUPLEX ULTRASOUND: Common femoral artery: 171 cm/s. Triphasic waveforms . Profunda femoris artery: 71 cm/s. Triphasic waveforms. . Superficial femoral artery (proximal): 85 cm/s. Triphasic waveforms. . Superficial femoral artery (mid): 89 cm/s. Triphasic waveforms. . Superficial femoral artery (distal): 91 cm/s. Triphasic waveforms. . Popliteal artery: 68 cm/s. Triphasic waveforms. . Posterior tibial artery: 64 cm/s LEFT LOWER EXTREMITY DUPLEX ULTRASOUND: Common femoral artery: 106 cm/s. Triphasic waveforms. . Profunda femoris artery: 46 cm/s. Triphasic waveforms. . Superficial femoral artery (proximal): 60 cm/s. Triphasic waveforms. . Superficial femoral artery (mid): 79 cm/s. Triphasic waveforms. . Superficial femoral artery (distal): 46 cm/s. Triphasic waveforms. . Popliteal artery: 62 cm/s. Triphasic waveforms. . Posterior tibial artery: 84 cm/s. Triphasic waveforms. . Femorofemoral bypass is patent with triphasic waveforms and peak systolic velocities in the range of 217- 101 cm/s. US/US arterial duplex BI w/ LAUREANO IMPRESSION: Normal patency and triphasic waveforms in the interrogated vessels. Normal patency of the femorofemoral bypass. Abnormal LAUREANO calculated by the extruder operator. Electronically signed by: Amandeep Roe MD 08/08/2024 09:30 AM BRIANA STOKES
[2024-07-25 14:36] LABS: Anion Gap 14 (12-20); Blood Urea Nitrogen 67 mg/dL (9-16); Carbon Dioxide 21 mmol/L (22-29); Chloride 106 mmol/L (96-108); Estimated Glomerular Filt Rate 13; Potassium 3.9 mmol/L (3.3-5.1); Sodium 137 mmol/L (135-145)
[2024-07-25 14:55] LABS: Appearance Urine Clear; Color Urine Yellow; Glucose Urine UA 100 mg/dL (Negative); Leukocyte Esterase Urine Negative (Negative); Nitrite Urine Negative (Negative); PH 5.5 (5.0-9.0); Specific Gravity - Urine 1.015 (1.005-1.025); UMIC TRIGGER UACC YES; Urine Blood Negative (Negative); Urine Ketones Negative (Negative); Urine Protein 300 (3+) mg/dL (Neg-Trace)
[2024-07-25 14:58] LABS: Bacteria Urine None Seen (None Seen); Hyaline Casts Urine 0-2 /LPF (0-2); RBC Urine 0-2 /HPF (0-2); Squamous Epithelial Cell Urine 0-2 /HPF (0-2); WBC Urine 0-5 /HPF (0-5)
== END 2024-07-25 13:24 | disposition home or self-care (01) ==
LOC: HO.US 13:23
PROVIDERS: Urology; Absent Provider Internal Medicine Nephrology; PCP Internal Medicine; Referring Provider Internal Medicine; Visit Provider Surgery Vascular Surgery
DX: C61 Malignant neoplasm of prostate (principal); N18.32 Chronic kidney disease, stage 3b; I73.9 Peripheral vascular disease, unspecified; I10 Essential (primary) hypertension; E78.5 Hyperlipidemia, unspecified; Z98.890 Other specified postprocedural states
CPT/HCPCS: 36415; 80051; 81001; 82565; 84520; 93922; 93925

== ENCOUNTER → 2024-07-25 13:56 | Outpatient (BNV) | payer MEDICARE, SELFPAY | PROVIDERS: Absent Provider Internal Medicine Nephrology; PCP Internal Medicine; Referring Provider Internal Medicine; Visit Provider Radiology Diagnostic Radiology | DX: I73.9 Peripheral vascular disease, unspecified (principal); Z95.820 Peripheral vascular angioplasty status with implants and grafts | CPT/HCPCS: 93922 ==

== ENCOUNTER 2024-07-29 09:26 | Outpatient (AMB) | payer MEDICARE, SELFPAY ==
--- NOTE | 2024-07-29 09:32 | HO.NEPHOV_ITS ---
Vital Signs 07/29/24 09:35 Height 6 ft Weight 135 lb 6 oz BMI 18.4 BP 190/90 H Blood Pressure Location Rt brachial Position Sitting Pulse 82 Pulse Source Pulse Oximeter Pulse Oximetry (%) 98 Oxygen Delivery Method Room Air Intake Visit Reasons: CKD-Conf Facilities Engineer Required: No Accompanied by: Spouse Allergies Penicillins [PCN] Allergy (Intermediate, Verified 07/29/24 09:34) Hives HPI Comments Details: 68-year-old man with a history of hypertension and significant vascular disease who had a baseline creatinine about 1.0- 1.2 mg/dL in October of 2022. In June of 2023 creatinine went up to 1.6 with it going upto 1.9 in July and 2.63 in November 2023. He also had been on hydrochlorothiazide 50 mg at that time which was reduced to 25 mg due to hypokalemia.He has a history of testicular cancer and underwent radiation several years ago which he attributes to his vascular disease. He has H/O fem- fem bypass surgery by Dr. Veras. Apparently he had a coronary angiogram in [facility] which was reportedly normal.(I have not seen the results). He has a history of smoking for several years. He continues to smoke cigarettes despite peripheral vascular disease and dyslipidemia.He has no new rash. He was seen in ER for accelerated hypertension & at that time his serum creatinine bumped up to 3.19. Previously CT angiogram of the abdomen in 2021 showed bilateral atherosclerosis disease of renal arteries.He underwent angiography and B/L renal artery stenting. He had taken hydralazine but could not tolerate due to side effects. His BP continue to be uncontrolled but better [facility] Medical History CKD (chronic kidney disease) Subarachnoid hemorrhage Tubular adenoma COVID-19 vaccination refused History of testicular cancer Peripheral arterial disease Hypercholesterolemia Coronary artery disease Tobacco abuse COPD (chronic obstructive pulmonary disease) Hypertension Surgical History History of surgery Hx of colonoscopy Hx of prostate biopsy History of tonsillectomy History of testicular surgery Family History Father No problems noted. Mother No problems noted. Maternal Grandmother Myocardial infarction Brother In good health Sister In good health Son In good health Son In good health Daughter In good health Sister Diabetes Social History Household Members: Spouse Housing: House Are you a primary district manager primary care sales to a significant other at home: No Do you presently have visiting nurse or other home services: No Alcohol intake: never Patient Tobacco Use Status: Current everyday Tobacco user Tobacco use type: Cigarette Cigarette Packs Per Day: 0.5 Cigarettes Per Day: 10 Years Smoked: 53 years- 10/PER DAY e-Cigarette/Vaping Use: Never Used Second Hand Smoke Exposure: Yes service: No Current occupational status: employed Current occupational exposures/hazards: No Cognitive needs: No Hearing needs: No Vision needs: Yes Review of Systems Const All systems reviewed & are unremarkable except as noted in HPI and below Physical Exam Vital Signs: Last Vital Signs Pulse 82 07/29/24 09:35 BP 190/90 H 07/29/24 09:35 Pulse Ox 98 07/29/24 09:35 Oxygen Delivery Method Room Air 07/29/24 09:35 BMI result Body Mass Index 18.4 Const General: comfortable and no acute distress Orientation/consciousness: patient oriented x3 HEENT Head: Yes normocephalic Mouth: Normal oral and palatal mucosa present Eyes EOM: EOMs intact bilaterally Neck Neck: Yes supple Resp Auscultation: clear to auscultation bilaterally Cardio Jugular venous distension: no JVD Rate: regular rate GI Palpation (GI): Soft to palpation Auscultation: normal bowel sounds General: Yes no CVA tenderness Back/Spine/Pelvis Back: no CVA tenderness Skin General skin exam: no rashes or lesions noted Neuro General: patient oriented x3 and moves all extremities Extrem General: Yes no pedal edema Results Reviewed Nephrology Results: Hgb 13.9 g/dl (14.0-18.0) L 07/02/24 WBC 9.3 X10*3/uL (4.8-10.8) 07/02/24 Plt Count 147 X10*3/uL (160-400) L 07/02/24 Sodium 137 mmol/L (135-145) 07/25/24 Potassium 3.9 mmol/L (3.3-5.1) 07/25/24 Chloride 106 mmol/L (96-108) 12/30/24 Carbon Dioxide 21 mmol/L (22-29) L 07/25/24 BUN 67 mg/dL (9-16) H 07/25/24 Creatinine 4.46 mg/dL (0.5-1.4) H* 07/25/24 Calcium 8.5 mg/dL (8.4-10.2) 07/13/24 Urine Protein 300 (3+) mg/dL (Neg-Trace) H 07/25/24 Assessment & Plan Assessment & Plan (1) CKD stage 3b, GFR 30-44 ml/min: Code(s): N18.32 - Chronic kidney disease, stage 3b Category: Medical (2) Hypertension: Code(s): I10 - Essential (primary) hypertension Category: Medical Qualifiers: Hypertension type: essential hypertension Qualified Code(s): I10 - Essential (primary) hypertension Plan 69-year-old man with a history of longstanding hypertension dyslipidemia and peripheral vascular disease in the setting of chronic smoking currently has progressive chronic kidney disease, likely from ischemic nephropathy. He is S/P B/L renal artery stenting. Differential diagnosis is embolic disease( cholesterol/athero embolic). He did not tolerate hydralazine. His BP is not at goal. He avoids NSAID's. He can continue Spironolactone 50 mg daily . I increased his Nifedipine to 120 mg daily . I ordered follow up blood work. I discussed about declining renal function and need for renal replacement in the future. Renal biopsy can be challenging given he is on Plavix. Follow up given Orders: Orders Creatinine 1 Month N18.32 - Chronic kidney disease, stage 3b Electrolytes 1 Month N18.32 - Chronic kidney disease, stage 3b Blood Urea Nitrogen 1 Month N18.32 - Chronic kidney disease, stage 3b Medications: Changed From nifedipine ER 60 mg PO DAILY 30 tabs 3RF To nifedipine ER 120 mg (2 x 60 mg) PO DAILY 30 days 60 tabs 6RF Coding Level of Care Code Est Pt Level 4 (54794) Diagnoses CKD stage 3b, GFR 30-44 ml/min N18.32 Essential hypertension I10 Hypertension type: essential hypertension
[2024-07-29 09:35] VITALS: BP 190/90; PULSE 82; O2SAT 98; BMI 18.4
== END 2024-07-29 10:18 | disposition home or self-care (01) ==
PROVIDERS: PCP Internal Medicine; Visit Provider Internal Medicine Nephrology
DX: I12.9 Hypertensive chronic kidney disease with stage 1 through stage 4 chronic kidney disease, or unspecified chronic kidney disease (principal); N18.32 Chronic kidney disease, stage 3b
CPT/HCPCS: 99214

== ENCOUNTER → 2024-07-29 09:26 | Outpatient (BNVA) | payer MEDICARE, SELFPAY | PROVIDERS: PCP Internal Medicine; Visit Provider Internal Medicine Nephrology | DX: I12.9 Hypertensive chronic kidney disease with stage 1 through stage 4 chronic kidney disease, or unspecified chronic kidney disease (principal); N18.32 Chronic kidney disease, stage 3b | CPT/HCPCS: 99212 ==

== ENCOUNTER 2024-08-02 14:27 | Outpatient (AMB) | payer MEDICARE, SELFPAY ==
--- NOTE | 2024-08-02 14:39 | MHC.OFFVIS ---
Vital Signs 08/02/24 14:40 Height 6 ft Weight 135 lb BMI 18.3 Intake Visit Reasons: follow up Arterial US 07/25/24& increased pain Intake Note: follow up LE and back pain s/p LE arterial US, 07/25/24 s/p fem-fem bypass and pt states his pain has increased since renal stenting 06/01/24. Pt states Left Great toe pain Allergies Penicillins [PCN] Allergy (Intermediate, Verified 08/03/24 09:05) Hives HPI HPI follow up Arterial US 07/25/24& increased pain: Details: 61-year-old gentleman with known history of peripheral vascular disease presents for follow-up. He had reported some lower extremity discomfort and was sent for urgent noninvasive arterial testing as he did have a prior history of a fem-fem bypass. In addition he is complained about generalized abdominal discomfort and back pain since his renal artery stenting which was done through a radial approach. Upon further discussion with him in general it appears that he has decline in overall health over the last several months. Reports nearly a 30 lb weight loss. He also describes significant agitation in general and sound intolerance. In addition he also notes some generalized abdominal pain and inability to tolerate food which has improved of late. He actually was able to have a lunch including chicken mathis's pie and mashed potatoes today. He has also developed a generalized tremor. He now presents to us for vascular follow-up. [facility] Medical History CKD (chronic kidney disease) Subarachnoid hemorrhage Tubular adenoma COVID-19 vaccination refused History of testicular cancer Peripheral arterial disease Hypercholesterolemia Coronary artery disease Tobacco abuse COPD (chronic obstructive pulmonary disease) Hypertension Surgical History History of surgery Hx of colonoscopy Hx of prostate biopsy History of tonsillectomy History of testicular surgery Family History Father No problems noted. Mother No problems noted. Maternal Grandmother Myocardial infarction Brother In good health Sister In good health Son In good health Son In good health Daughter In good health Sister Diabetes Social History Household Members: Spouse Housing: House Are you a primary home care assistant to a significant other at home: No Do you presently have visiting nurse or other home services: No Alcohol intake: never Patient Tobacco Use Status: Current everyday Tobacco user Tobacco use type: Cigarette Cigarette Packs Per Day: 0.5 Cigarettes Per Day: 2 Years Smoked: 53 years- 10/PER DAY Packs Per Year: 0 Packs per year/per ci.00 e-Cigarette/Vaping Use: Never Used Second Hand Smoke Exposure: Yes service: No Current occupational status: employed Current occupational exposures/hazards: No Cognitive needs: No Hearing needs: No Vision needs: Yes Review of Systems Const All systems reviewed & are unremarkable except as noted in HPI and below Reports no additional complaints ENT Reports Normal hearing present Card Denies chest pain, Denies chest pain at rest, Denies chest pain with activity and Denies pedal edema Resp Denies cough GI Denies abdominal pain Musc Denies abnormal gait, Denies muscle cramps and Denies radiating pain into limb Skin/Breast Denies skin ulcer and Denies wounds Neuro Reports Normal hearing present and Denies abnormal gait Psych Reports no additional complaints Physical Exam Vital Signs: BMI result Body Mass Index 18.3 Const General: cooperative, healthy appearing and comfortable Orientation/consciousness: oriented to person, oriented to place and oriented to time HEENT Head: Yes normal to inspection Neck Neck: Yes normal visual inspection Carotids: no bruits Chest Chest palpation & inspection: normal inspection of the chest Resp Effort & Inspection: normal respiratory effort and able to speak in complete sentences Auscultation: clear to auscultation bilaterally, no crackles, no rales, no rhonchi and no wheezes Cardio Other: Triphasic signals bilateral DP Rate: regular rate Rhythm: regular rhythm Heart sounds: S1 normal heart sound present and S2 normal heart sound present Bruits: no carotid bruits Peripheral pulses: Peripheral pulses 2+ throughout GI Inspection: Yes normal to inspection Skin Wounds: no wounds Hair: normal Neuro General: oriented to person, oriented to place and oriented to time Cranial nerves: Yes CN's II-XII intact bilaterally and Yes Normal hearing present Cognition (Neuro): normal cognition Motor exam (neuro): 5/5 motor strength present throughout Extrem Other: venous exam: No significant superficial varicosities or spider telangiectasias, minimal edema General: No clubbing, No cyanosis and No edema Psych Appearance: grossly normal Mental Status: mental status grossly normal Speech and movement: Normal speech and movement present Results Reviewed Results Reviewed: Noninvasive testing from 07/25/2024 demonstrates appropriate flow down bilateral lower extremities. It does appear to have patent fem-fem bypass. Assessment & Plan Assessment & Plan (1) Peripheral vascular disease: Comment: 03/24/2018 - diagnostic angiogram 11/03/2022 - femoral to femoral bypass Code(s): I73.9 - Peripheral vascular disease, unspecified Category: Medical Plan: At the current time his lower extremities stable from a vascular standpoint. I do have concern about his lower back pain and generalized pain which seems to be radiating on down from his lower back. I have taken the liberty of ordering a pain management consult for that as well. We did discuss routine risk factor modification including the importance of appropriate nutrition and getting his weight back up. He will follow up with us in terms of his mesenteric and renals with noninvasive testing. (2) Chronic mesenteric ischemia: Code(s): K55.1 - Chronic vascular disorders of intestine Category: Medical Plan: There may be an element chronic mesenteric ischemia. Although he does not demonstrate any food fear symptoms I have taken the liberty of ordering mesenteric ultrasound. He is scheduled for renal artery ultrasound as well. We did discuss the importance of frequent small meals. He does have a nephrology follow-up as well. I did discuss this case with the nephrology team. Thank you for allowing us to assist in his care. Orders: Orders US abdomen limited 1 Week K55.1 - Chronic vascular disorders of intestine Coding Level of Care Code Est Pt Level 4 (69198) Complex EM visit Add On G2211 Diagnoses Peripheral vascular disease I73.9 Chronic mesenteric ischemia K55.1
[2024-08-02 14:40] VITALS: BMI 18.3
== END 2024-08-02 15:17 | disposition home or self-care (01) ==
PROVIDERS: PCP Internal Medicine; Visit Provider Surgery Vascular Surgery
DX: I73.9 Peripheral vascular disease, unspecified (principal); K55.1 Chronic vascular disorders of intestine
CPT/HCPCS: 99214; G2211

== ENCOUNTER → 2024-08-02 14:27 | Outpatient (BNVA) | payer MEDICARE, SELFPAY | PROVIDERS: PCP Internal Medicine; Visit Provider Surgery Vascular Surgery | DX: I73.9 Peripheral vascular disease, unspecified (principal); K55.1 Chronic vascular disorders of intestine; F17.210 Nicotine dependence, cigarettes, uncomplicated | CPT/HCPCS: 99212 ==

== ENCOUNTER 2024-08-03 08:56 | Outpatient (AMB) | payer MEDICARE, SELFPAY ==
--- NOTE | 2024-08-03 09:04 | MHC.PC.OV ---
Vital Signs 08/03/24 09:05 Height 6 ft Weight 140 lb BMI 19.0 BP 160/84 H Blood Pressure Location Lt brachial Position Sitting Pulse 79 Pulse Source Pulse Oximeter Pulse Oximetry (%) 97 Oxygen Delivery Method Room Air Intake Visit Reasons: f/u HTN and HLD Door Builder Required: No Accompanied by: Self / Same As Patient Allergies Penicillins [PCN] Allergy (Intermediate, Verified 08/03/24 09:05) Hives Medication List - Last Reconciled 08/03/24 by Beverly Scott PA-C aspirin (Adult Aspirin Regimen) 81 mg PO .@0600 clopidogrel (Plavix) 75 mg PO DAILY cyanocobalamin (vitamin B-12) 500 mcg PO .@1800 finasteride 2.5 mg PO DAILY metoprolol succinate ER 100 mg PO DAILY nifedipine ER 120 mg (2 x 60 mg) PO DAILY 30 days spironolactone 50 mg (2 x 25 mg) PO DAILY Tobacco use date assessed: 08/03/24 Fall risk assessment: No Falls in past year Last assessed Fall Risk: 08/03/24 Dental Screening Dental Screen Date: 08/03/24 Did you have a dental visit in the last 12 months?: No Did you have a dental problem in the last 6 months where you did not have access to dental care?: No Was dental information given to patient?: No HPI f/u HTN and HLD HPI Details 69-year-old male with past medical history of hypertension, COPD, coronary artery disease, hypercholesterolemia, prostate cancer and came chronic kidney disease last seen April 2024 coming in for follow up. In review of the notes patient was seen by vascular surgery 08/02/2023 s/p fem fem bypass. Patient was seen by Nephrology 08/01/2024 advised to increase nifedipine to 120 mg and continue on spironolactone and follow up. Patient presents today with his . He tells us that he has been having decreased appetite due to abdominal pain that has been improving since discontinuing the hydralazine. Since his warper creeler changed his blood pressure medications he has seen improvement in his appetite and abdominal pain. He is extremely limited in his diet due to his comorbidities and is unsure what can eat. He also mentions having decreased vision in the left eye which has been ongoing for several years and has not seen an eye doctor for this concern. He also has having headaches. Also decreased mobility due to leg pain postoperatively. [facility] Medical History CKD (chronic kidney disease) Subarachnoid hemorrhage Tubular adenoma COVID-19 vaccination refused History of testicular cancer Peripheral arterial disease Hypercholesterolemia Coronary artery disease Tobacco abuse COPD (chronic obstructive pulmonary disease) Hypertension Surgical History History of surgery Hx of colonoscopy Hx of prostate biopsy History of tonsillectomy History of testicular surgery Family History Father No problems noted. Mother No problems noted. Maternal Grandmother Myocardial infarction Brother In good health Sister In good health Son In good health Son In good health Daughter In good health Sister Diabetes Social History Household Members: Spouse Housing: House Are you a primary home care physical therapist to a significant other at home: No Do you presently have visiting nurse or other home services: No Alcohol intake: never Patient Tobacco Use Status: Current everyday Tobacco user Tobacco use type: Cigarette Cigarette Packs Per Day: 0.5 Cigarettes Per Day: 2 Years Smoked: 53 years- 10/PER DAY e-Cigarette/Vaping Use: Never Used Second Hand Smoke Exposure: Yes service: No Current occupational status: employed Current occupational exposures/hazards: No Cognitive needs: No Hearing needs: No Vision needs: Yes Questionnaire PHQ-9 Over the last 2 weeks, how often have you been bothered by any of the following problems? 1. Little interest or pleasure in doing things: several days 2. Feeling down, depressed, or hopeless: several days 3. Trouble falling or staying asleep, or sleeping too much: nearly every day 4. Feeling tired or having little energy: more than half the days 5. Poor appetite or overeating: several days 6. Feeling bad about yourself - or that you are a failure or have let yourself or your family down: several days 7. Trouble concentrating on things, such as reading the newspaper or watching television: not at all 8. Moving or speaking so slowly that other people could have noticed. Or the opposite - being so fidgety or restless that you have been moving around a lot more than usual: not at all 9. Thoughts that you would be better off or of hurting yourself in some way: not at all Total score: 9 Depression Screening Interpretation: Negative Depression Screening Done: Yes 87704 - PHQ-9 Billing: Yes Source: Developed by Drs. Tad Angel, Jennie Nicole, Tello Mendoza and colleagues, with an educational noemi from [employer] Thrive Questionnaire Date Thrive assessed: 08/03/24 I am a: Patient What is your living situation today?: I have a steady place to live Within the past 12 months, did the food you bought not last and you didn't have the money to get more?: Never true Within the past 12 months, did you worry whether your food would run out before you got money to buy more?: Never true Do you have trouble paying for medicines?: No Do you have trouble getting transportation to medical appointments?: No Do you have trouble paying your heating and electricity bill?: No Do you have trouble taking care of your child, family member or friend?: No Do you have trouble with day-to-day activities such as bathing, preparing meals, shopping, managing finances, etc.?: No Are you currently unemployed and looking for a job?: No Are you interested in more education?: No Please select the resources that you would like help with: None Currently or been in a relationship where the following occur: No concerns reported THRIVE Score: 0 AUDIT C Alcohol Use Questionnaire (AUDIT-C) 1. How often do you have a drink containing alcohol?: Never 2. How many drinks containing alcohol do you have on a typical day when you are drinking?: 1 or 2 3. How often do you have six or more drinks on one occasion?: Never Total Score: 0 BIANCA-7 AMB Questionnaire BIANCA-7 Date BIANCA - 7 assessed: 08/03/24 Feeling nervous, anxious, or on edge: 0 = Not at all Not being able to stop or control worryin = Not at all Worrying too much about different things: 0 = Not at all Trouble relaxin = Not at all Being so restless that it is hard to sit still: 0 = Not at all Becoming easily annoyed or irritable: 0 = Not at all Feeling afraid as if something awful might happen: 0 = Not at all Total BIANCA-7 score (0-4 normal; 5-9 mild; 10-14 moderate; 15-21 severe): 0 Source: Developed by Drs. Tad Angel, Jennie Nicole, Tello Mendoza and colleagues, with an educational noemi from [employer] Review of Systems Const Denies body aches, Denies chills, Denies fever(s), Reports headache(s), Reports poor appetite and Reports weight loss Eyes Reports as per HPI ENT Denies dizziness and Reports headache(s) Card Denies chest pain, Denies syncope, Denies edema, Denies irregular heart rhythm, Denies lightheadedness and Denies dyspnea Resp Denies cough and Denies dyspnea GI Denies abdominal pain, Denies constipation, Denies diarrhea, Denies nausea and Denies vomiting Reports no additional complaints Musc Details: Lower extremity pain ambulating with cane Reports abnormal gait Skin/Breast Reports system reviewed and no additional complaints, except as documented Neuro Reports abnormal gait, Denies dizziness, Denies syncope and Reports headache(s) Psych Reports no additional complaints Physical exam (Primary Care) Vital Signs: Last Vital Signs Pulse 79 08/03/24 09:05 BP 160/84 H 08/03/24 09:05 Pulse Ox 97 08/03/24 09:05 Oxygen Delivery Method Room Air 08/03/24 09:05 BMI result Body Mass Index 19.0 Tobacco/Smoking Status: Tobacco use Status Tobacco use date assessed 08/03/24 08/03/24 09:08 Patient Tobacco Use Status Current everyday Tobacco 08/03/24 09:08 Tobacco use type Cigarette 08/03/24 09:08 e-Cigarette/Vaping Use Never Used 08/03/24 09:08 PHQ-9: PHQ-9 Score PHQ-9: Total score 9 08/03/24 09:08 Depression Screening Interpretation: Negative Thrive Assessment: Date of Thrive Assessment Date Thrive assessed 08/03/24 08/03/24 09:08 Currently or been in a relationship where the following occur: No concerns reported Const General: cooperative, healthy appearing, comfortable and no acute distress Orientation/consciousness: patient oriented x3 HENMT Head: Yes normocephalic Ears: hearing grossly normal bilaterally General nose exam: Normal external nose present Eyes General: appearance normal, both eyes and all related structures Conjunctivae: conjunctivae normal Neck Neck: Yes full ROM and Yes no lymphadenopathy Resp Effort & Inspection: normal respiratory effort Auscultation: clear to auscultation bilaterally, no crackles, no rales, no rhonchi and no wheezes Cardio Rate: regular rate Rhythm: regular rhythm Skin General skin exam: no rashes or lesions noted Neuro General: patient oriented x3 Gait exam (Neuro): Normal gait present Extrem General: Yes normal to inspection, Yes full ROM and No edema Psych Affect: normal affect Attitude: cooperative Insight: Good insight present (Psych) Judgement: Good judgement present (Psych) Coding Level of Care Code Est Pt Level 4 (18103) Diagnoses Essential hypertension I10 Hypertension type: essential hypertension Tobacco abuse Z72.0 Coronary artery disease involving [place] coronary artery of [place] heart without angina pectoris I25.10 Associated angina: without angina Coronary Disease-Associated Artery/Lesion type: [place] artery [place] vs. transplanted heart: [place] heart Peripheral vascular disease I73.9 CKD stage 3b, GFR 30-44 ml/min N18.32 Recent weight loss R63.4 Headache R51.9 Additional Codes PHQ-9 - 66372 - PHQ-9 Billing: Yes ([id number]) Assessment & Plan Assessment & Plan (1) Hypertension: Code(s): I10 - Essential (primary) hypertension Category: Medical Qualifiers: Hypertension type: essential hypertension Qualified Code(s): I10 - Essential (primary) hypertension Plan: Continue on current blood pressure medication. Avoid salt intake and encourage healthy diet and regular exercise. Has been following with Nephrology improvement in blood pressure today continue on current blood pressure regimen and follow up with warper creeler. (2) Tobacco abuse: Code(s): Z72.0 - Tobacco use Category: Medical Plan: Smoking cigarettes and the use of tobacco can be harmful. We discussed the importance of stopping and options to aid in smoking cessation. (3) Coronary artery disease: Comment: saw [facility] pre-femoral/femoral bypass surgery 2022-sees PCP Dr. Chery & Dr. Veras-vascular Code(s): I25.10 - Atherosclerotic heart disease of [place] coronary artery without angina pectoris Category: Medical Qualifiers: Associated angina: without angina Coronary Disease-Associated Artery/Lesion type: [place] artery [place] vs. transplanted heart: [place] heart Qualified Code(s): I25.10 - Atherosclerotic heart disease of [place] coronary artery without angina pectoris Plan: Advised good control of blood pressure, cholesterol and blood sugars. Currently following with Dr. Veras (4) Peripheral vascular disease: Comment: 03/24/2018 - diagnostic angiogram 11/03/2022 - femoral to femoral bypass Code(s): I73.9 - Peripheral vascular disease, unspecified Category: Medical Plan: Following with Dr. Veras. Having pain postoperatively was told by Dr. Veras physical therapy orders have been placed. Discussed with patient if these orders were not placed by Dr. Veras I can place the myself. (5) CKD stage 3b, GFR 30-44 ml/min: Code(s): N18.32 - Chronic kidney disease, stage 3b Category: Medical Plan: Currently following with Nephrology avoid kidney irritants and stay well hydrated. (6) Recent weight loss: Code(s): R63.4 - Abnormal weight loss Category: Medical Plan: Patient having decreased appetite and subsequent weight loss. Referral placed to medical reinforcing bar setter to help him navigate his new dietary restrictions. (7) Headache: Code(s): R51.9 - Headache, unspecified Category: Medical Plan: Discussed with patient has headache is likely multifactorial due to hypertension, decreased vision and decreased dietary intake. We will work on blood pressure with Nephrology advised to follow up with his renewable energy project manager for visual exam and referral placed to nutrition for dietary modification. Plan This note was constructed using voice recognition software. While every effort has been made to ensure accuracy and gear roller, still areas may have been included sometimes these areas may affect the content or meeting of the given symptoms. Total time spent caring for the patient today was 20 minutes. This includes time spent before the visit reviewing the chart, time spent during the visit, and time spent after the visit and documentation. Orders: Referrals Medical Nutrition Therapy Referral E78.00 - Pure hypercholesterolemia, unspecified, I10 - Essential (primary) hypertension, I25.10 - Atherosclerotic heart disease of [place] coronary artery without angina pectoris, N18.32 - Chronic kidney disease, stage 3b
[2024-08-03 09:05] VITALS: BP 160/84; PULSE 79; O2SAT 97; BMI 19.0
== END 2024-08-03 09:56 | disposition home or self-care (01) ==
PROVIDERS: PCP Internal Medicine
DX: I12.9 Hypertensive chronic kidney disease with stage 1 through stage 4 chronic kidney disease, or unspecified chronic kidney disease (principal); I73.9 Peripheral vascular disease, unspecified; N18.32 Chronic kidney disease, stage 3b; Z72.0 Tobacco use; I25.10 Atherosclerotic heart disease of native coronary artery without angina pectoris; R63.4 Abnormal weight loss; R51.9 Headache, unspecified

== ENCOUNTER → 2024-08-03 08:56 | Outpatient (BNVA) | payer MEDICARE, SELFPAY | PROVIDERS: PCP Internal Medicine | DX: I10 Essential (primary) hypertension (principal); I25.10 Atherosclerotic heart disease of native coronary artery without angina pectoris; I73.9 Peripheral vascular disease, unspecified; R63.4 Abnormal weight loss; R51.9 Headache, unspecified; N18.32 Chronic kidney disease, stage 3b; Z72.0 Tobacco use | CPT/HCPCS: 96127; 99212 ==

== ENCOUNTER 2024-08-05 13:04 | Outpatient (AMB) | payer MEDICARE, SELFPAY ==
--- NOTE | 2024-08-05 13:31 | A.OFFVIS_ITS ---
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 He is a patient of Dr. Chery. He is seen for the following urologic conditions - prostate cancer - testicular cancer 1993 - XRT - lower urinary tract symptoms Six-month follow-up PSA remains well-controlled Main complaint is weakness of stream Prior MRI showed small prostate Plan office cystoscopy Trial terazosin however suspicion for decreased bladder function Prolaris 02/16 recommend active surveillance Second biopsy 01/1724 grade group 2, low volume disease Histologic type: Acinar adenocarcinoma Mylene score: 3+3=6 (H & M), 3+4=7 (J) - 50%, 20%, 65% Grade group: 1 (H &M), 2 (J) Tumor quantitation: Number cores positive: 3 Total number of cores: 13 Periprostatic fat inv.: One focus suspicious for extraprostatic extension (Part J) Seminal vesicle inv.: Not identified Perineural inv.: Present LVI: Not identified MRI shows 20 g prostate, right posterolateral peripheral zone 1.1 cm PI-RADS 4, adjacent 6 mm PI-RADS 4 lesion Prostate cancer - low-grade, low volume diagnosis May 2020 PSA 06/16 3.3, 07/17 1.9, 01/16 3.8, 08/19 3.7, 07/19 1.9 Prostate cancer diagnosed by Dr. Bernal PSA at diagnosis 5.7 free 8% Volume 40 gm Histologic type: Adenocarcinoma, acinar Histologic grade: Mylene score: 3 + 3 = 6 Tumor quantitation: Number cores positive: 2 Right lateral - Total number of cores: 12 % of tissue involved: 1-2% of all tissue examined Low-grade, low volume disease Recommendation active surveillance with finasteride [facility] Medical History CKD (chronic kidney disease) Subarachnoid hemorrhage Tubular adenoma COVID-19 vaccination refused History of testicular cancer Peripheral arterial disease Hypercholesterolemia Coronary artery disease Tobacco abuse COPD (chronic obstructive pulmonary disease) Hypertension Surgical History History of surgery Hx of colonoscopy Hx of prostate biopsy History of tonsillectomy History of testicular surgery Family History Father No problems noted. Mother No problems noted. Maternal Grandmother Myocardial infarction Brother In good health Sister In good health Son In good health Son In good health Daughter In good health Sister Diabetes Social History Household Members: Spouse Housing: House Are you a primary daycare director to a significant other at home: No Do you presently have visiting nurse or other home services: No Alcohol intake: never Patient Tobacco Use Status: Current everyday Tobacco user Tobacco use type: Cigarette Cigarette Packs Per Day: 0.5 Cigarettes Per Day: 2 Years Smoked: 53 years- 10/PER DAY e-Cigarette/Vaping Use: Never Used Second Hand Smoke Exposure: Yes service: No Current occupational status: employed Current occupational exposures/hazards: No Cognitive needs: No Hearing needs: No Vision needs: Yes Review of Systems Const Denies chills and Denies fever(s) Card Reports no additional complaints and Denies syncope Resp Denies cough GI Denies abdominal pain and Denies heartburn Reports as per HPI and Denies change in libido Neuro Denies syncope Psych Denies change in libido Endo Denies change in libido Physical Exam Const General: cooperative, healthy appearing, comfortable and no acute distress Orientation/consciousness: patient oriented x3 HEENT Face and sinus: Yes normal facial exam Mouth: moist mucous membranes Neck Neck: Yes normal visual inspection, Yes full ROM and Yes trachea midline Chest Chest palpation & inspection: normal inspection of the chest Resp Effort & Inspection: normal respiratory effort, able to speak in complete sentences and no respiratory distress GI Inspection: Yes normal to inspection Back/Spine/Pelvis Cervical Spine: normal cervical lordosis Thoracic/Lumbar Spine: thoracic and lumbar spine normal to inspection Skin General skin exam: no rashes or lesions noted Neuro General: patient oriented x3, gait normal, tone normal and moves all extremities Extrem General: Yes normal to inspection and Yes capillary refill normal Assessment & Plan Assessment & Plan (1) Nocturia more than twice per night: Code(s): R35.1 - Nocturia Category: Medical (2) Weak urinary stream: Code(s): R39.12 - Poor urinary stream Category: Medical (3) Prostate cancer: Comment: 12/2023 biopsy Code(s): C61 - Malignant neoplasm of prostate Category: Medical Plan 2 month follow-up office cysto Medications: New terazosin 5 mg PO BEDTIME 30 days 30 caps 1RF N40.1 - Benign prostatic hyperplasia with lower urinary tract symptoms, R35.0 - Frequency of micturition, R35.1 - Nocturia Patient Instructions: Imaging studies, laboratory and physical exam results were discussed and reviewed in detail. No major barriers to patient understanding were identified. An opportunity to ask questions regarding the treatment plan was provided. All questions were answered. The patient expressed understanding and agreement with the above treatment plan. The patient is aware they should contact our office by phone for worsening of their current condition or the appearance of new urologic symptoms. Compliance is encouraged with any medications and followup testing that is ordered. It is a privilege to participate in the urologic care of your patient. If you have any questions or concerns regarding treatment for the above conditions, or other urologic issues, please do not hesitate to contact me. The office telephone contact is [phone]. This note is constructed using voice recognition software. 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 Yours sincerely, Dr Alberto Bernal MD, MARY [facility] - Urology Providers of Expert, Compassionate Care for the Genitourinary System Coding Level of Care Code Est Pt Level 4 (05649) Diagnoses Nocturia more than twice per night R35.1 Weak urinary stream R39.12 Prostate cancer C61
== END 2024-08-05 13:53 | disposition home or self-care (01) ==
PROVIDERS: PCP Internal Medicine; Visit Provider Urology
DX: R35.1 Nocturia (principal); R39.12 Poor urinary stream; C61 Malignant neoplasm of prostate
CPT/HCPCS: 99214

== ENCOUNTER → 2024-08-05 13:04 | Outpatient (BNVA) | payer MEDICARE, SELFPAY | PROVIDERS: PCP Internal Medicine; Visit Provider Urology | DX: R35.1 Nocturia (principal); R39.12 Poor urinary stream; C61 Malignant neoplasm of prostate | CPT/HCPCS: 99212 ==

== ENCOUNTER 2024-08-08 10:38 | Outpatient (AMB) | payer MEDICARE, SELFPAY ==
[2024-08-08 11:00] VITALS: BMI 18.8
--- NOTE | 2024-08-08 11:00 | A.OFFVIS_ITS ---
VS Expanded 08/08/24 11:00 08/08/24 12:31 Height 6 ft 6 ft Weight 138 lb 14.259 oz 139 lb BMI 18.8 18.8 Intake Visit Reasons: Chronic kidney disease, stage 3b/Left vm Allergies Penicillins [PCN] Allergy (Intermediate, Verified 08/05/24 13:32) Kayla Nutrition Presentation Details: Pt presents for MNT for weight loss with dietary restrictions related to CKD stage3, Hypercholesterolemia, CAD, HTN. Pt was referred by PCP Pt reports reduced appetite, Pt denies having nausea, vomiting, diarrhea or constipation presents with Pt during this appointment reports patient declines foods stating he has no appetite, Pt 's weight fluctuating between 135-140 lbs. Pt reports losing weight, almost 30 lbs in 2yrs time food texture: soft d/t lack of dentures food preferences protein foods: seafood ok , beef ok, poultry ok , abstains from eggs due to chol, beans no cottage cheese ok, bologna/hotdogs preferred dairy: ice cream /milk/yogurts/cheese fruits: variety canned in its own juice preferred vegetables:mixed with the meats (mushrooms, green beans, carrots) starches: noodles /crackers , no rice starchy veg: potatoes/squash beverages: coke, césar pantera etoh/smokng------- physical activity: sedentary BS Monitoring Most Recent Diabetes Results: Creatinine 4.46 mg/dL (0.5-1.4) H* 07/25/24 Blood Urea Nitrogen 67 mg/dL (9-16) H 07/25/24 Sodium 137 mmol/L (135-145) 07/25/24 Potassium 3.9 mmol/L (3.3-5.1) 07/25/24 Chloride 106 mmol/L (96-108) 07/25/24 Carbon Dioxide 21 mmol/L (22-29) L 07/25/24 HQN-Gzdnvfn-Kw.Jeor Equation Height: 6 ft Weight: 139 lb Resting Metabolic Rate: 1443.30 Calculated Activity Level: Sedentary Calories Needed to Maintain Weight: 1731.96 Diagnosis Nutrition problem #1: underweight As related to (etiology) #1: renal dysfunction As evidenced by (sign/symptom) #1: poor PO intake (reduced appetite) and low BMI (18.8 (07/2024)) Monitoring/Goals Nutrition problem monitoring: total PRO intake, total CHO intake and weight Nutrition goal/outcome: wt gain 5lbs in 2 months Outcome progress: verbalized understanding PFSH Medical History CKD (chronic kidney disease) Subarachnoid hemorrhage Tubular adenoma COVID-19 vaccination refused History of testicular cancer Peripheral arterial disease Hypercholesterolemia Coronary artery disease Tobacco abuse COPD (chronic obstructive pulmonary disease) Hypertension Surgical History History of surgery Hx of colonoscopy Hx of prostate biopsy History of tonsillectomy History of testicular surgery Family History Father No problems noted. Mother No problems noted. Maternal Grandmother Myocardial infarction Brother In good health Sister In good health Son In good health Son In good health Daughter In good health Sister Diabetes Social History Household Members: Spouse Housing: House Are you a primary career development counselor to a significant other at home: No Do you presently have visiting nurse or other home services: No Alcohol intake: never Patient Tobacco Use Status: Current everyday Tobacco user Tobacco use type: Cigarette Cigarette Packs Per Day: 0.5 Cigarettes Per Day: 2 Years Smoked: 53 years- 10/PER DAY e-Cigarette/Vaping Use: Never Used Second Hand Smoke Exposure: Yes service: No Current occupational status: employed Current occupational exposures/hazards: No Cognitive needs: No Hearing needs: No Vision needs: Yes Assessment & Plan Assessment & Plan (1) CKD stage 3b, GFR 30-44 ml/min: Comment: Pt with low appetite, needs soft foods d/t lack of dentures, hx of CAD, HTN, high Chol Code(s): N18.32 - Chronic kidney disease, stage 3b Category: Medical Plan: Wt: 63 Kg ( 07/2023 ) Est kcal needs as per MSJ: 1700 + 500 + to prevent weight loss (40% carb, 30% protein/fat) Est fluid needs as per 25-30 ml/d: 1600- 1900 Est prot per day as per 1 g/kg bw: 63 Recommend fiber intake : 8-10 g per day and gradually increase to 25-28 g per day for women and 35-38 g for men or as tolerated Recommend sodium intake per day : less than 1500 mg less than 2000 mg Educated patient on: ( R = reviewed V = verbalizes understanding N/R = needs review N/A = not applicable * Food sources of carbohydrate, adequate serving sizes and its role in various health conditions: R * Differences between complex carbohydrates a simple carbohydrates, role of fiber in diet: R V N/R * Lean protein sources of foods: R * Differences between types of fats and role in diet (mono on saturated fat fatty acids, saturated fatty acids, trans fats): R V N/R * Food sources of sodium in salt and healthy modifications for heart health in kidney health: R * Vitamins and minerals: R V N/R * Healthy plate method concept: R V N/R * Physical activity: Benefits a precaution: R V N/R * Patient Instructions: Work on having 4-6 small meals vs skipping meals Add lemon, honey, herbs and spices to add flavor to foods See list of meal /snack ideas B: cream of wheat snack: blueberry muffin and honey lunch: tuna salad sandwich and 1/2 cup of mixed fruits snack: egg salad with lemon and vanilla wafers or grapes dinner: pasta,ground chicken, green beans, 1/2 c juice snack: smoothie (milk, fruit or fruit smoothies ) see meal /snack ideas * Caution with highly processed meats/foods example reduce portion of bologna/salami and add/mix with low sodium poultry or low sodium roast beef Coding Level of Care Code Nutr Indiv Intake (02344) Diagnoses CKD stage 3b, GFR 30-44 ml/min N18.32 Time Spent (min) 30
[2024-08-08 12:31] VITALS: BMI 18.8
== END 2024-08-08 11:53 | disposition home or self-care (01) ==
PROVIDERS: PCP Internal Medicine; Visit Provider Dietitian, Registered
DX: N18.32 Chronic kidney disease, stage 3b (principal)

== ENCOUNTER → 2024-08-08 10:38 | Outpatient (BNVA) | payer MEDICARE, SELFPAY | PROVIDERS: PCP Internal Medicine; Visit Provider Dietitian, Registered | DX: N18.32 Chronic kidney disease, stage 3b (principal) | CPT/HCPCS: 97802 ==

== ENCOUNTER 2024-08-20 01:28 | Inpatient (IN) | payer MEDICARE, SELFPAY ==
[2024-08-20] VITALS (16 sets, daily range): BP systolic 156–209; BP diastolic 83–104; PULSE 68–98; RESP 12–24; TEMP 36.6–37.2; O2SAT 2–97; BMI 16.3; BMI 19.7
--- NOTE | 2024-08-20 | ECG_ITS ---
Test Reason : tachy Blood Pressure : */* mmHG Vent. Rate : 95 BPM Atrial Rate : 95 BPM P-R Int : 190 ms QRS Dur : 96 ms QT Int : 394 ms P-R-T Axes : 54 44 73 degrees QTcB Int : 495 ms Sinus rhythm with frequent Premature ventricular complexes Possible Left atrial enlargement RSR' or QR pattern in V1 suggests right ventricular conduction delay Nonspecific ST abnormality Prolonged QT Abnormal ECG When compared with ECG of 04-Mar-2024 16:52, AL interval has decreased Referred By: Generic ED Physician Electronically Signed By: ELLIOT FLORES MD
--- NOTE | ~2024-08-20 | CT_ITS ---
CLINICAL HISTORY: anemic, hx testicular CA, new pleural effusions CT abdomen and pelvis without contrast Comparison: None Findings: Please see same day CT chest report. Mildly distended gallbladder Scattered pancreatic calcifications may reflect sequela of chronic pancreatitis. Bilateral hypodense renal cysts. No hydronephrosis. No bowel obstruction, pneumoperitoneum, or pneumatosis. Scattered colonic diverticulosis without diverticulitis or colitis. Prominently distended bladder. The bones are intact. Focal spondylosis L4-L5. Extensive atheromatous plaque disease throughout the branch vessels, with bifemoral bypass. Infrarenal abdominal aortic aneurysms measuring 3.3 cm near the iliac bifurcation. Attention on follow-up. IMPRESSION: No acute intra abdominopelvic pathology. Prominently distended bladder. Additional findings as described. This document has been electronically signed by: Elgin Conway MD on 08/20/2024 04:50:50
--- NOTE | ~2024-08-20 | US_ITS ---
PROCEDURE: Ultrasound-guided left thoracentesis History: Left pleural effusion Specimen: A sample of pleural fluid was sent for analysis Access: 5 Khmer Yueh catheter Medications: 10 mL 1% lidocaine TECHNIQUE/FINDINGS Appropriate preprocedural clinical history and imaging studies were reviewed. The patient was brought to the department and placed in the right lateral decubitus position. Ultrasound images of the left thorax were obtained to localize a large pleural effusion. Permanent ultrasound images were saved. Risks and benefits and possible complications were discussed with the patient and consent form was signed. An area of the patient's left back was prepped and draped in usual sterile fashion. 10 mL of 1% lidocaine was used to obtain local anesthesia of the skin and deeper tissues. A standard small bore needle was introduced to sample pleural fluid and demonstrate a safe access route. A 5 Khmer Yueh catheter was then used to access the pleural cavity. 1000 ml of yellow fluid was removed passively. The catheter was then removed. A dressing was applied. A postprocedure chest x-ray will be performed and will be dictated separately. There were no immediate complications. The procedure was performed by Jacobo Amaral PA-C and supervised by Dr. Lombardi US/US thoracentesis Impression: Ultrasound-guided left thoracentesis Electronically signed by: Mert Lombardi MD 08/23/2024 02:37 PM [facility] [place]
--- NOTE | ~2024-08-20 | CT_ITS ---
CLINICAL HISTORY: confusion CT head without contrast Comparison: CT/ID/SR - CT HEAD/BRAIN WO IV CON - 03/04/24 16:36 EDT Findings: There is age-appropriate atrophy. The size and shape of the ventricular system is within normal limits for degree of atrophy. Moderate areas of low attenuation are again seen within the periventricular and deep white matter. Gann-white differentiation is well preserved. No midline shift or mass effect. No intracranial hemorrhage. No calvarial fractures. IMPRESSION: 1. No acute intracranial findings. This document has been electronically signed by: Wali Irwin MD on 08/20/2024 09:27:50
--- NOTE | ~2024-08-20 | XR_ITS ---
EXAMINATION: XR CHEST CLINICAL INFORMATION: worsening hypoxia, ? effusion reaccumulating COMPARISON: 08/22/2024 post thoracentesis exam. . TECHNIQUE: AP portable view of the chest was obtained. FINDINGS: Mild cardiac enlargement. Mediastinal and hilar contours are stable with mild vascular congestion in the hilar regions. Aorta is calcified. Lungs demonstrate similar small residual left effusion with underlying parenchymal opacity left base. Tiny right effusion again noted with similar parenchymal opacity right base. Underlying interstitial pulmonary edema present with Anders B lines in the peripheral lungs and indistinctness of the interstitial markings. No pneumothorax. No focal soft tissue or bone abnormality. XR/XR chest 1V IMPRESSION: 1. Small left greater than right effusions with underlying basilar parenchymal opacities and associated diffuse interstitial edema. Basilar opacities are likely a combination of atelectasis and alveolar edema. Pneumonia cannot be excluded. Allowing for differences in technique, little interval change from 08/22/2024 examination. Electronically signed by: Edwardo Queen MD 08/25/2024 08:50 AM [facility]
--- NOTE | ~2024-08-20 | XR_ITS ---
CLINICAL HISTORY: sob 1 view chest x-ray Comparison: Chest x-ray from 07/15/2023 Findings: New [id number] left and small-minimal right pleural effusions. New underlying atelectasis/consolidation of both lung bases. Mild edema or superimposed edema is considered given interstitial opacities. Cardiac silhouette and mediastinum are no partly obscured. No definite pneumothorax Degenerative changes include imaged shoulders. IMPRESSION: 1. New bilateral pleural effusions, left worse than right. 2. New underlying atelectasis/consolidation. Recommend attention on follow-up to ensure resolution. This document has been electronically signed by: Sixto Tony MD on 08/20/2024 02:44:14
--- NOTE | ~2024-08-20 | US_ITS ---
CLINICAL HISTORY: swelling Venous duplex ultrasound left upper extremity Comparison: None Findings: Accessible deep venous segments are fully compressible with normal Doppler color flow and spectral tracings. IMPRESSION: 1. Negative for left upper extremity deep vein thrombosis. This document has been electronically signed by: Ana Laura Kim MD on 08/21/2024 15:00:14
--- NOTE | ~2024-08-20 | XR_ITS ---
EXAMINATION: XR CHEST CLINICAL INFORMATION: s/p left thoracentesis COMPARISON: X-ray dated August 20, 2024. TECHNIQUE: Frontal view of the chest was obtained. FINDINGS: No gross pneumothorax. Meniscal shaped opacities in both lower hemithoraces. Prominence of the interstitial lung markings. Pulmonary reticular pattern. Calcified plaque thoracic aortic arch. Cardiomediastinal silhouette is normal in size. XR/XR chest 1V IMPRESSION: No pneumothorax. Decreased left-sided pleural effusion. Bilateral pleural effusions, small to moderate volume. Mild interstitial lung edema. Electronically signed by: Amandeep Roe MD 08/22/2024 03:47 PM EST
--- NOTE | ~2024-08-20 | CT_ITS ---
CLINICAL HISTORY: new pleural effusions, hx testicular CA CT chest without contrast Comparison: None Findings: Cardiomegaly without significant pericardial effusion. Coronary artery calcifications. Mildly prominent mediastinal nodes hilar nodes, nonspecific. Gynecomastia. Mildly prominent axillary nodes, left more than right example series 5, image 11 measuring 1.4 cm. Paraseptal and centrilobular emphysema. Moderate left and small right bilateral pleural effusions with partial collapse of the dependent lungs. Dmsn-[id number]-pngm-right dense lower lobe consolidations with air bronchograms, round/masslike on the left. Scattered right-sided pulmonary nodules, in the right middle lobe measuring up to 9 mm. Please see same day CT abdomen pelvis report. Osteopenia. Diffuse anasarca. IMPRESSION: 1. Paraseptal and centrilobular emphysema. 2. Moderate left and small right bilateral pleural effusions. 3. [id number]-right airspace disease as described. Although this may be in part related to atelectasis/collapse, underlying pneumonia aspiration mass lesions are not excluded. Close attention on follow-up advised. 4. Scattered right-sided pulmonary nodules measuring up to 9 mm. Per Fleischner criteria: Low-risk patients: CT at 3-6 months, then consider CT at 18-24 months. High-risk patients: CT at 3-6 months, then CT at 18-24 months. This document has been electronically signed by: Elgin Conway MD on 08/20/2024 05:01:24
--- NOTE | 2024-08-20 01:45 | MHC.EDTECH ---
Patient brought in to triage area,EKG taken per order,signed by provider
--- NOTE | 2024-08-20 01:58 | MHC.EDTECH ---
Labs and sars/flu/rsv obtained and sent to lab.
[2024-08-20 02:03] LABS: MANUAL DIFF FLAG NO
[2024-08-20 02:18] LABS: Basophils Percent Auto 0.4 % (0-2); Eosinophils Absolute Auto 0.3 X10*3/uL (0.0-0.4); Eosinophils Percent Auto 4.1 % (0-4); Hematocrit 30.3 % (42.0-52.0); Hemoglobin 10.3 g/dl (14.0-18.0); Imm Gran Abs Auto 0.02 X10*3/uL (0.00-0.03); Imm Gran Pct Auto 0.3 % (0.0-0.4); Lymphocytes Absolute Auto 1.1 X10*3/uL (1.2-4.9); Lymphocytes Percent Auto 14.5 % (20-40); Mean Corpuscular Hemoglobin 29.4 pg (27.0-33.0); Mean Corpuscular Volume 86.6 fL (80.0-98.0); Mean Platelet Volume 9.4 fL (9.4-12.4); Monocytes Absolute Auto 0.8 X10*3/uL (0.1-1.2); Monocytes Percent Auto 11.4 % (2-11); Neutrophils Absolute Auto 5.1 x10*3/uL (2.0-8.3); Neutrophils Percent Auto 69.3 % (45-73); Platelet Count 221 X10*3/uL (160-400); Red Cell Distribution Width 14.7 % (11.0-16.0); White Blood Count 7.4 X10*3/uL (4.8-10.8)
[2024-08-20 02:30] LABS: Alanine Aminotransferase 17 U/L (0-40); Albumin Level 3.2 g/dL (3.5-5.0); Alkaline Phosphatase 103 U/L (39-117); Anion Gap 18 (12-20); Aspartate Amino Transferase 22 U/L (5-37); Bilirubin Total 0.3 mg/dL (0.0-1.0); Blood Urea Nitrogen 50 mg/dL (9-16); Calcium 8.4 mg/dL (8.4-10.2); Carbon Dioxide 14 mmol/L (22-29); Chloride 109 mmol/L (96-108); Creatinine Clr Calc Pharmacy 11.7; Estimated Glomerular Filt Rate 13; Glucose Random 153 mg/dL (60-115); Lipase 36 U/L (8-78); Potassium 3.7 mmol/L (3.3-5.1); Sodium 137 mmol/L (135-145); Total Protein 6.4 g/dL (6.5-8.0)
[2024-08-20 02:44] LABS: Influenza A PCR NEGATIVE (Negative); Influenza B PCR NEGATIVE (Negative); Resp Syncy Virus RNA Qual PCR NEGATIVE (Negative); SARS COV2 PCR INHOUSE NEGATIVE (Negative)
--- NOTE | 2024-08-20 02:47 | PC.NURSE ---
Pt brought to [facility] 21 for treatment assumed care of pt at this time. Pt A&Ox3 skin pwd respirations even slightly labored. Tremulous, reports not at baseline. Pt denies chest pain, reports SOB. Swelling to left forearm noted, no redness, +pulse. Presents to ED for reports of tachycardia after taking mucinex tonight. Pt son reports pt with productive cough and lots of phlegm x few days. 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 Frequent PVCs noted. 93-94% on RA reports hx COPD current smoker. Denies home O2 use. Provider notified of pt status, requested provider to see pt sooner rather than later.
[2024-08-20 03:41] LABS: B Type Natriuretic Peptide 1183 pg/mL (<100)
--- NOTE | 2024-08-20 03:50 | ED_ITS ---
HPI - General Adult General Chief complaint: General Medical Stated complaint: flu like, tachy? after taking mucinex Time Seen by Provider: 08/20/24 03:10 Source: patient Mode of arrival: ambulatory Limitations: no limitations History of Present Illness ED Provider: Dr. Flori Sen HPI narrative: Patient comes to the emergency room complaining of shortness of breath. Patient states that it is much worse when he walks around. Patient reports that for the last few days he has been having URI symptoms including congestion, cough. Patient denies shortness of breath. Patient denies any abdominal pain. In triage she was noted that patient's blood pressure is in the 200s. Patient states that at baseline he usually runs in the high 190s. Patient states that he recently got renal stents placed. Patient denies headache, visual changes, no chest pain, no headache. Related Data Home Medications ?Medication ?Instructions ?Recorded ?Confirmed aspirin 81 mg tablet,delayed 81 mg PO .@0600 03/04/21 08/03/24 release (Adult Aspirin Regimen) cyanocobalamin (vitamin B-12) 500 mcg PO .@1800 09/25/22 08/03/24 1,000 mcg capsule finasteride 5 mg tablet 2.5 mg PO DAILY Every other day 03/15/24 08/03/24 Previous Rx's ?Medication ?Instructions ?Recorded clopidogrel 75 mg tablet (Plavix) 75 mg PO DAILY #90 tabs 06/01/24 spironolactone 25 mg tablet 50 mg (2 x 25 mg) PO DAILY #30 tabs 07/18/24 nifedipine 60 mg tablet,extended 120 mg (2 x 60 mg) PO DAILY 30 07/29/24 release 24 hr days #60 tabs terazosin 5 mg capsule 5 mg PO BEDTIME 30 days #30 caps 08/05/24 metoprolol succinate 100 mg 100 mg PO DAILY #90 tabs 08/10/24 tablet,extended release 24 hr Allergies Allergy/AdvReac Type Severity Reaction Status Date / Time Penicillins [PCN] Allergy Intermediate Hives Verified 08/20/24 01:54 Review of Systems 2 Review of Systems: Constitutional : No Weight loss, No Fever, No Chills, No Night Sweats, No Fatigue, No Malaise ENT/Mouth : No Hearing loss, No Ear Pain, No Nasal Congestion, No Sinus Pain, No Hoarseness, No sore throat, No Rhinorrhea, No Swallowing Difficulty Eyes: No Eye Pain, No Swelling, No Redness, No Foreign Body, No Discharge, No Vision Changes Cardiovascular : No Chest Pain, complaining of shortness of breath Respiratory complaining of dry cough, shortness of breath with exertion Gastrointestinal : No Nausea, No Vomiting, No Diarrhea, No Constipation, No abdominal Pain, No Hematochezia, No Melena Genitourinary : no irregular bleeding, No Dysuria, No Urinary Frequency, No Hematuria, No Urinary Incontinence, No Urgency, No Flank Pain, No Urinary Flow Changes, No Hesitancy Musculoskeletal : No joint pain, No Myalgias, No Joint Swelling Skin : No Skin Lesions, No rash Neuro : No Weakness, No Numbness, No Paresthesias, No Loss of Consciousness, No Dizziness, No Headache Psych : No Anxiety/Panic, No Depression, No SI/HI/AH/VH, No Social Issues, Heme/Lymph: No Bruising, No Bleeding,No Lymphadenopathy Endocrine : No Polyuria, No Polydipsia, No Temperature Intolerance COUNT INCLUDES THE [facility] Past Medical History Medical History CKD (chronic kidney disease) Subarachnoid hemorrhage Tubular adenoma COVID-19 vaccination refused History of testicular cancer Peripheral arterial disease Hypercholesterolemia Coronary artery disease Tobacco abuse COPD (chronic obstructive pulmonary disease) Hypertension Surgical History History of surgery Hx of colonoscopy Hx of prostate biopsy History of tonsillectomy History of testicular surgery Family History Family History Father No problems noted. Mother No problems noted. Maternal Grandmother Myocardial infarction Brother In good health Sister In good health Son In good health Son In good health Daughter In good health Sister Diabetes Social History Social History Household Members: Spouse Housing: House Are you a primary lpn care manager to a significant other at home: No Do you presently have visiting nurse or other home services: No Alcohol intake: former Patient Tobacco Use Status: Current everyday Tobacco user Tobacco use type: Cigarette Cigarette Packs Per Day: 0.5 Cigarettes Per Day: 2 Years Smoked: 53 years- 10/PER DAY Smoked in Last 30 Days: Yes e-Cigarette/Vaping Use: Never Used Second Hand Smoke Exposure: Yes Use of substances other than those prescribed or required for medical reasons: No Advance Directives: No Advance Directives Information Provided: Yes Do you have a plan to hurt others: No Plan service: No Current occupational status: employed Current occupational exposures/hazards: No Cognitive needs: No Hearing needs: No Vision needs: Yes Physical Exam ED Vital Signs: Vital Signs - 24 hr 08/20/24 01:50 08/20/24 02:43 08/20/24 05:09 Temperature 98.0 F 97.9 F 98.1 F Pulse Rate 94 93 92 Respiratory Rate 16 22 H 22 H Blood Pressure 198/95 H 198/104 H Pulse Oximetry 95 94 92 Oxygen Delivery Method Room Air Room Air Nasal Cannula Oxygen Flow Rate 2 BMI result Body Mass Index 16.3 Const Other: Appearance: Alert. Oriented X3. No acute distress. Eyes: Pupils equal, round and reactive to light. ENT: Pharynx normal. Neck: Normal inspection. Neck supple. No lymph nodes noted. No crepitus CVS: Normal heart rate and rhythm. Pulses normal. Normal S1 and S2 Respiratory: No respiratory distress. Breath sounds normal. No Wheezing. No rales Abdomen: Soft and nontender. No rigidity. No distention. Skin: Skin warm and dry. Normal skin color. Normal skin turgor. Extremities: No lower extremity edema. No Lacerations. No Rash Neuro: Oriented X 3. No motor deficit. No sensory deficit. Moving all extremities. No slurred speech. CN 2 through 12 grossly intact Psych: calm, cooperative, normal affect Medications Administered Discontinued Medications Generic Name Dose Route Start Last Admin Trade Name Freq PRN Reason Stop Dose Admin Metoprolol Succinate 100 mg 08/20/24 03:53 08/20/24 04:37 Metoprolol Succinate Er 100 Mg Tab.Er.24h PO 08/20/24 03:54 100 mg ONCE ONE Administration Protocol Nifedipine 60 mg 08/20/24 03:53 08/20/24 04:54 Nifedipine Er 60 Mg Tab.Er.24 PO 08/20/24 03:54 60 mg ONCE ONE Administration Protocol Spironolactone 25 mg 08/20/24 03:53 08/20/24 04:38 Spironolactone 25 Mg Tablet PO 08/20/24 03:54 25 mg ONCE ONE Administration Protocol Medical Decision Making Medical Decision Making [facility] Narrative: My interpretation of labs: Patient's hemoglobin is 10.3. Six weeks ago, patient's hemoglobin was close to 14. Patient may have anemia secondary to his chronic anemia. Patient states that in May of 2024, he was started on clopidogrel. -patient declining the rectal exam -patient has new pleural effusions. Patient states that many years ago he was told he had infusions but has not been an issue recently in the last few years. -CT scan is concerning for possible CHF, there pleural effusions, no pericardial effusion. There is possibly a consolidation versus round/mass on the left lung. Scattered right pulmonary nodules measuring up to 9 mm Vertically, patient was given IV antibiotics. However, this is more likely CHF versus malignancy rather than an infection. IV fluids being held. Sepsis is not suspected. Patient has new onset CHF On room air, patient's oxygenation dropped to 87%, now on 2 L saturating 92%. I discussed the patient with our hospitalist, patient being admitted. Differential Diagnosis Differential Diagnoses: The differential diagnosis associated with the presentation includes (New onset CHF, lung cancer,) Admission/Observation Consideration of admission/observation: Escalation of care including admission/observation considered Consult Healthcare Provider Management of the patient was discussed with: Hospitalist Lab Data [facility] Lab Attestation statement: I reviewed the patient's lab results. 08/20/24 01:47 08/20/24 01:53 Labs: Lab Results 08/20/24 08/20/24 Range/Units 01:47 01:53 WBC 7.4 (4.8-10.8) X10*3/uL RBC 3.50 L D (4.60-5.80) X10*6/uL Hgb 10.3 L D (14.0-18.0) g/dl Hct 30.3 L D (42.0-52.0) % MCV 86.6 (80.0-98.0) fL MCH 29.4 (27.0-33.0) pg MCHC 34.0 (31.0-36.0) g/dl RDW 14.7 (11.0-16.0) % Plt Count 221 D (160-400) X10*3/uL MPV 9.4 (9.4-12.4) fL Immature Gran % (Auto) 0.3 (0.0-0.4) % Neut % (Auto) 69.3 (45-73) % Lymph % (Auto) 14.5 L (20-40) % [place] % (Auto) 11.4 H (2-11) % Eos % (Auto) 4.1 H (0-4) % Baso % (Auto) 0.4 (0-2) % Lymph # (Auto) 1.1 L (1.2-4.9) X10*3/uL [place] # (Auto) 0.8 (0.1-1.2) X10*3/uL Eos # (Auto) 0.3 (0.0-0.4) X10*3/uL Baso # (Auto) 0.0 (0.0-0.2) X10*3/uL Abs Immat Gran (auto) 0.02 (0.00-0.03) X10*3/uL Absolute Neuts (auto) 5.1 (2.0-8.3) x10*3/uL Absolute Nucleated RBC 0.000 (0.0-0.012) X10*3/uL Nucleated RBC % (auto) 0.0 (0.0-0.2) /100WBC Sodium 137 (135-145) mmol/L Potassium 3.7 (3.3-5.1) mmol/L Chloride 109 H (96-108) mmol/L Carbon Dioxide 14 L (22-29) mmol/L Anion Gap 18 (12-20) BUN 50 H (9-16) mg/dL Creatinine 4.65 H* (0.5-1.4) mg/dL Estim Creat Clear Calc 11.7 Estimated GFR 13 Random Glucose 153 H (60-115) mg/dL Calcium 8.4 (8.4-10.2) mg/dL Total Bilirubin 0.3 (0.0-1.0) mg/dL AST 22 (5-37) U/L ALT 17 (0-40) U/L Alkaline Phosphatase 103 (39-117) U/L Troponin I High Sens 21.0 D (<3.5-35.0) ng/L B-Natriuretic Peptide 1183 H (<100) pg/mL Total Protein 6.4 L (6.5-8.0) g/dL Albumin 3.2 L (3.5-5.0) g/dL Lipase 36 (8-78) U/L Influenza Type A (PCR) NEGATIVE (Negative) Influenza Type B (PCR) NEGATIVE (Negative) RSV RNA Qual (PCR) NEGATIVE (Negative) SARS-CoV-2 RNA (RT-PCR) NEGATIVE (Negative) Independent Interpretation I performed an independent interpretation of an: CT Scan Interpretation: Cardiomegaly without significant pericardial effusion. Coronary artery calcifications. Mildly prominent mediastinal nodes hilar nodes, nonspecific. Gynecomastia. Mildly prominent axillary nodes, left more than right example series 5, image 11 measuring 1.4 cm. Paraseptal and centrilobular emphysema. Moderate left and small right bilateral pleural effusions with partial collapse of the dependent lungs. Ilqx-fcqjbub-ojpe-right dense lower lobe consolidations with air bronchograms, round/masslike on the left. Scattered right-sided pulmonary nodules, in the right middle lobe measuring up to 9 mm. Please see same day CT abdomen pelvis report. Osteopenia. Diffuse anasarca. IMPRESSION: 1. Paraseptal and centrilobular emphysema. 2. Moderate left and small right bilateral pleural effusions. 3. Kyrq-tbulqzs-ukof-right airspace disease as described. Although this may be in part related to atelectasis/collapse, underlying pneumonia aspiration mass lesions are not excluded. Close attention on follow-up advised. 4. Scattered right-sided pulmonary nodules measuring up to 9 mm. Per Fleischner criteria: Low-risk patients: CT at 3-6 months, then consider CT at 18-24 months. High-risk patients: CT at 3-6 months, then CT at 18-24 months. No acute intra abdominopelvic pathology. Prominently distended bladder. Additional findings as described. Radiology Impression Discussion of test interpretation with radiology: I have reviewed the radiologist's reading. Critical Care Time Critical Care Time Critical Care Time: Yes Total Critical Care Time: 75 Attestation: I have personally provided critical care time. Time includes review of lab data, radiology results, discussion with consultants, and monitoring for potential decompensation. Intervention performed as documented. Discharge Plan Discharge Clinical Impression: New onset of congestive heart failure, Pleural effusion, Anemia, Chronic hypertension Patient Disposition: Admitted As Inpatient Prescriptions: No Action spironolactone 25 mg tablet 50 mg PO DAILY Qty: 30 2RF metoprolol succinate 100 mg tablet extended release 24 hr 100 mg PO DAILY Qty: 90 0RF clopidogrel [Plavix] 75 mg tablet 75 mg PO DAILY Qty: 90 1RF aspirin [Adult Aspirin Regimen] 81 mg tablet,delayed release (DR/EC) 81 mg PO .@0600 cyanocobalamin (vitamin B-12) 1,000 mcg capsule 500 mcg PO .@1800 finasteride 5 mg tablet 2.5 mg PO DAILY Rx Instructions: to be taken every other day nifedipine 60 mg tablet extended release 24hr 120 mg PO DAILY 30 Days Qty: 60 6RF terazosin 5 mg capsule 5 mg PO BEDTIME 30 Days Qty: 30 1RF Print Language: Kiswahili
[2024-08-20] MEDS: Metoprolol Succinate ER 100 MG TAB.ER.24H PO ×2 (04:37→17:17)
[2024-08-20] MEDS: Spironolactone 25 MG TABLET PO (04:38)
[2024-08-20] MEDS: NIFEdipine ER 60 MG TAB.ER.24 PO (04:54)
--- NOTE | 2024-08-20 05:45 | PC.NURSE ---
Pt requiring O2 at rest- SpO2 increased to 92% on 2L MD ROBIN notified. Pt refusing rectal exam, plan for admission, pt aware of plan of care.
[2024-08-20] MEDS: Bumetanide 1 MG/4 ML VIAL IVPUSH (06:16)
[2024-08-20] MEDS: cefTRIAXone sodium 1 GM VIAL IVPUSH (06:16)
--- NOTE | 2024-08-20 07:23 | PC.NURSE ---
Pt resting quietly in room; BP 181/89; denies CP at this time; LS coarse throughout with dim bases; awaiting admission order
--- NOTE | 2024-08-20 08:00 | CA_ITS ---
Transthoracic Echocardiogram Patient (Last, First, Middle): Zi Hogan M Gender: Male Date of : 1955 Age: 69 Procedure Date: 08/20/2024 Procedure Type: Transthoracic [place] [facility] [place]: 182.88 cm Weight: 54.43 kg BSA: 1.71 m2 Heart Rate: bpm BP: 199 / 101 mmHg Home School Coordinator: Referring MD: Fernando Rosas DO Curatorial Specialist: Mateusz Hart MD Symptoms: CHF Study Quality: Adequate ECG Rhythm: Sinus with extra beats Conclusions: - 1. Normal LV ejection fraction 55-60% with mild LVH with impaired relaxation filling pattern 2. Moderately dilated right ventricle with low-normal RV systolic function 3. Moderate biatrial enlargement 4. Early mild aortic stenosis 5. Normal RV systolic pressure with mildly elevated right atrial pressure 6. No significant pericardial effusion Findings Left Ventricle Normal left ventricular size and systolic function. There is mildly increased left ventricular wall thickness. The visually estimated ejection fraction is between 55-60%. Spectral Doppler is indicative of an impaired relaxation filling pattern. E/E prime ratio is between 8 and 15 consistent with indeterminate filling pressures. Peak GLs is -18.3%, within normal limits. Right Ventricle Moderately increased right ventricular cavity size. There is low normal right ventricular systolic function. Atria The left atrium is moderately dilated. There is no evidence of interatrial shunt. The right atrium is moderately dilated. Aortic Valve There is mild calcification of the aortic valve. There is moderate thickening of the aortic valve. There is mild aortic valve stenosis. The peak aortic velocity is 1.65 m/s with a calculated peak gradient of 11 mmHg. The mean gradient is 5 mmHg. The aortic valve area is 1.86 cm2. There is no aortic valve regurgitation. Mitral Valve Normal mitral valve structure and function. There is mild mitral valve regurgitation. There is no mitral valve stenosis. Pulmonic Valve The pulmonic valve is likely normal. Tricuspid Valve There is mild tricuspid valve regurgitation. The right ventricular systolic pressure is normal. The right ventricular systolic pressure is 33 mmHg. Mildly elevated right atrial pressure. Great Vessels The aorta was not well visualized. The pulmonary artery was not well visualized. There is no dilatation of the ascending aorta measuring 3.40 cm. Venous The inferior vena cava is mildly dilated and collapses less than 50% with inspiration. Pericardium/Pleural There is no evidence of pericardial effusion. There is a bilateral pleural effusion. Prior Study Comparison No prior study available for comparison. Measurements 2D Linear Measurements IVSd: 1.36 0.6-0.9/0.6-1.0 cm LVIDd: 4.17 3.9-5.3/4.2-5.9 cm LVIDd Index: 2.44 2.4-3.2/2.2-3.1 cm/m2 LVIDs: 2.93 2.0-3.6 cm LVPWd: 1.35 0.7-1.1 cm Ao Root: 3.10 2.1-3.5 cm LA Diam: 3.80 2.7-3.8/3.0-4.0 cm LAIDs Index: 2.22 1.5-2.3 cm/m2 LV Mass: 263.27 67-162/88-224 g LV Mass Index: 153.96 43-95/49-115 g/m2 LVOT Diam: 2.10 3.0+(-)1.3 cm Mitral Valve MV Pk E: 0.93 MV PK A: 0.91 MV Decel Time: 195.00 E/A: 1.00 E'Lateral: 9.90 E'Medial: 6.09 E/E' Med: 15.20 E/E' Lat: 9.30 PHT: 57.00 MVA PHT: 3.86 Decel Bibb: 4.76 Aortic Valve AoV Pk Cordell: 1.65 AoV Mn Cordell: 1.08 AoV VTI: 0.37 AoV Pk Grad: 11.00 Aov Mn Grad: 5.00 BRO Cont.VTI: 1.86 LVOT LVOT Pk Cordell: 0.88 LVOT Mn Cordell: 0.60 LVOT VTI: 0.20 LVOT Pk Grad: 3.00 LVOT Mn Grad: 2.00 LVOT Diam: 2.10 LVOT Area: 3.46 Diastolic Function MV Pk E: 0.93 MV Pk A: 0.91 E/A: 1.00 E'Medial: 6.09 E/E' Med: 15.20 E' Laterial: 9.90 E/E' Lat: 9.30 Tricuspid Valve TR Pk Cordell: 2.51 TR Pk Grad: 25.00 RA Press: 8.00 RVSP: 33.00 Great Vessels Aorta Ao Root-2D: 3.10 2.0-3.7 cm Ao Asc: 3.40 2.1-3.4 cm Pulmonary Valve PV Pk Cordell: 1.04 Peak PV Grad: 4.00 Updated in Other Vendor System with Status of Final Mateusz Hart MD electronically signed on 08/20/2024 12:54:19 PM with status of Final
--- NOTE | 2024-08-20 08:49 | P.HPHOSP_ITS ---
History of Present Illness Date of Service: 08/20/24 Chief Complaint: Shortness of breath 69-year-old male with longstanding COPD/tobacco abuse, hypertension, COPD, CAD, CKD 3B, and peripheral vascular disease presents with worsening shortness of breath that he can not truly qualify. Patient states that he has smoked since he was 14 and over the last several months he has noticed his breathing is worse and he has approximately 30 lb unintentional weight loss. Patient states earlier this evening he developed a cough that would not respond to his usual therapies; son transported to ER. In the emergency room, BNP was elevated; CTA chest demonstrated bilateral pleural effusions left greater than right with multiple pulmonary nodules. Question infiltrate versus obstructive lesion. Review of Systems 2 Review of Systems: Denies chest pain Admits shortness of breath Denies nausea vomiting diarrhea Denies fever chills PMFSH Medical History CKD (chronic kidney disease) Subarachnoid hemorrhage Tubular adenoma COVID-19 vaccination refused History of testicular cancer Peripheral arterial disease Hypercholesterolemia Coronary artery disease Tobacco abuse COPD (chronic obstructive pulmonary disease) Hypertension Family History Father No problems noted. Mother No problems noted. Maternal Grandmother Myocardial infarction Brother In good health Sister In good health Son In good health Son In good health Daughter In good health Sister Diabetes Surgical History History of surgery Hx of colonoscopy Hx of prostate biopsy History of tonsillectomy History of testicular surgery Social History Household Members: Spouse Housing: House Are you a primary child care aide to a significant other at home: No Do you presently have visiting nurse or other home services: No Alcohol intake: former Patient Tobacco Use Status: Current everyday Tobacco user Tobacco use type: Cigarette Cigarette Packs Per Day: 0.5 Cigarettes Per Day: 2 Years Smoked: 53 years- 10/PER DAY Smoked in Last 30 Days: Yes e-Cigarette/Vaping Use: Never Used Second Hand Smoke Exposure: Yes Use of substances other than those prescribed or required for medical reasons: No Advance Directives: No Advance Directives Information Provided: Yes Do you have a plan to hurt others: No Plan service: No Current occupational status: employed Current occupational exposures/hazards: No Cognitive needs: No Hearing needs: No Vision needs: Yes Meds Allergies Allergy/AdvReac Type Severity Reaction Status Date / Time Penicillins [PCN] Allergy Intermediate Hives Verified 08/20/24 01:54 Active Medications: Current Medications Acetaminophen (Acetaminophen 325 Mg Tablet) 650 mg PO Q6H PRN PRN Reason: Pain, Mild 1-3,fever,headache Calcium Carbonate (Calcium Carbonate 750 Mg Tab.Chew) 750 mg PO Q4H PRN PRN Reason: Heartburn Ceftriaxone Sodium (Ceftriaxone Sodium 1 Gm Vial) 1 gm IVPUSH Q24H ROMAN Azithromycin 500 mg/ Sodium (Chloride) 250 mls @ 125 mls/hr IV DAILY ROMAN Magnesium Hydroxide (Milk Of Magnesia 30 Ml Oral.Susp) 30 ml PO DAILY PRN PRN Reason: Constipation Melatonin (Melatonin 3 Mg Tablet) 6 mg PO BEDTIME PRN PRN Reason: Insomnia Ondansetron HCl (Ondansetron Hcl 4 Mg/2 Ml Vial) 4 mg IVPUSH Q8H PRN PRN Reason: Nausea and Vomiting Oxycodone HCl (Oxycodone Hcl Immed Release 5 Mg Tablet) 5 mg PO Q6H PRN PRN Reason: Pain, Moderate(Pain Scale 4-6) Sodium Chloride (0.9 % Sodium Chloride Flush 3 Ml Syringe) 3 ml IVFLUSH QSHIFT [facility] Home Medications ?Medication ?Instructions ?Recorded ?Confirmed ?Last Taken ?Type aspirin 81 mg tablet,delayed 81 mg PO .@0600 03/04/21 08/03/24 06/01/24 History release (Adult Aspirin Regimen) cyanocobalamin (vitamin B-12) 500 mcg PO .@1800 09/25/22 08/03/24 12/28/23 06:00 History 1,000 mcg capsule finasteride 5 mg tablet 5 mg PO Q OTHER DAY 03/15/24 08/03/24 06/01/24 History amlodipine 10 mg tablet 10 mg PO DAILY 08/20/24 Unknown History Physical Exam 2 Vital Signs and Narrative: Vital Signs: Last Vital Signs Temp 97.8 F 08/20/24 06:23 Pulse 89 08/20/24 07:22 Resp 21 H 08/20/24 07:22 BP 181/89 H 08/20/24 07:22 Pulse Ox 95 08/20/24 07:22 O2 Del Method Nasal Cannula 08/20/24 07:22 O2 Flow Rate 2 08/20/24 07:22 BMI result Body Mass Index 16.3 Const: Other: Awake alert; slow to respond. Ill-appearing. HEENT: Other: Membranes dry Resp: Other: Diminished at bases left greater than right with scant expiratory wheezes Cardio: Other: No S4; positive S1-S2; no S3 murmurs rubs or gallops GI: Other: Soft nontender nondistended normoactive bowel sounds Neuro: Other: Cranial nerves 2-12 grossly intact as tested. Motor is 5/5 all extremities. Sensation is intact. Gait not observed Extrem: Other: No edema bilaterally Results Labs 08/20/24 01:47 08/20/24 01:53 Labs: Laboratory Results - last 24 hr 08/20/24 08/20/24 01:47 01:53 MCV 86.6 MCH 29.4 MCHC 34.0 RDW 14.7 Plt Count 221 D MPV 9.4 Immature Gran % (Auto) 0.3 Neut % (Auto) 69.3 Lymph % (Auto) 14.5 L [place] % (Auto) 11.4 H Eos % (Auto) 4.1 H Baso % (Auto) 0.4 Lymph # (Auto) 1.1 L [place] # (Auto) 0.8 Eos # (Auto) 0.3 Baso # (Auto) 0.0 Abs Immat Gran (auto) 0.02 Absolute Neuts (auto) 5.1 Absolute Nucleated RBC 0.000 Nucleated RBC % (auto) 0.0 Anion Gap 18 Estim Creat Clear Calc 11.7 Estimated GFR 13 Random Glucose 153 H Calcium 8.4 Total Bilirubin 0.3 AST 22 ALT 17 Alkaline Phosphatase 103 Troponin I High Sens 21.0 D B-Natriuretic Peptide 1183 H Total Protein 6.4 L Albumin 3.2 L Lipase 36 Influenza Type A (PCR) NEGATIVE Influenza Type B (PCR) NEGATIVE RSV RNA Qual (PCR) NEGATIVE SARS-CoV-2 RNA (RT-PCR) NEGATIVE Assessment and Plan (1) New onset of congestive heart failure: Status: Acute (2) Pleural effusion: Status: Acute (3) CKD stage 3b, GFR 30-44 ml/min: Status: Acute (4) Chronic hypertension: Status: Acute Plan 69-year-old male with known history of peripheral artery disease, CAD, COPD and chronic tobacco abuse presents with worsening shortness of breath over several months for along with unintentional weight loss. Workup in the emergency room consistent for likely pulmonary edema with bilateral pleural effusions. 1.Acute CHF -aggressive diuresis with Bumex -2D echo to check LVEF -cardiology consult -aggressive afterload reduction (add nitro paste) 2. CKD 3B -continue outpatient therapies (appears at baseline) -renal consult -follow renals/divalents 3. Hypertension -continue outpatient therapies -add nitro paste 1 in topically -adjust therapies based on clinical response (got all home meds earlier this a.m.) 4. Bilateral pleural effusion (in backdrop of 30 lb unintentional weight loss) -suspicious for malignancy -diagnostic thoracentesis by Interventional Radiology -further plans based on forthcoming data 5. Peripheral artery disease -continue Plavix/aspirin Full code Heparin Patient will require 2 midnights going forward of inpatient stay to aggressively treat acute CHF and evaluate new pleural effusions in the backdrop of chronic tobacco abuse. This can not be achieved a lesser acute setting Quality Stroke Does the patient have a stroke diagnosis?: No VTE Prior VTE?: No VTE Risk Level:: Medical - moderate - high VTE Device Contraindication: Treatment Not Indicated VTE Drug Contraindication: N/A - Med Ordered
[2024-08-20] MEDS: Azithromycin 500 MG in 0.9 % Sodium Chloride 250 ML 125 MG IV (09:58)
[2024-08-20] MEDS: Heparin Sodium,Porcine 5,000 UNIT/ML VIAL 5000 UNIT SUBCUT (09:58)
[2024-08-20] MEDS: Nitroglycerin 2 % Oint 1 GM Packet 1 INCH TRANSDERMA (09:59)
[2024-08-20] MEDS: Sodium Bicarbonate 650 MG TABLET PO (09:59)
--- NOTE | 2024-08-20 10:11 | PC.NURSE ---
left arm swollen, patient reports it started this morning. No redness or pain in arm , Dr. Rosas notified
--- NOTE | 2024-08-20 10:25 | PHA.MEDREC ---
Pharmacy Consult ? Medication Reconciliation Pharmacy has completed the medication reconciliation. Spoke to pt to confirm meds. Pt had med list on their phone.
[2024-08-20] MEDS: Acetaminophen 325 MG TABLET 650 MG PO ×2 (10:38→20:16)
--- NOTE | 2024-08-20 12:40 | PC.NURSE ---
BP remains elevated , Dr. Rosas notified. Patient reports no longer has a headache, denies pain or discomfort
--- NOTE | 2024-08-20 12:43 | P.CONCA_ITS ---
History of Present Illness History of Present Illness Date of Service: 08/20/24 Requesting physician: Fernando Rosas Consult reason: congestive heart failure and other (Hypertension) Chief complaint: acute chf Narrative: I was consulted to see Zi in cardiology consultation today for management of newly detected elevated BNP in the setting of uncontrolled blood pressure for fci with worsening renal function. Patient present hospital with progressive exertional shortness of breath with no clear orthopnea. He is had about 30 lb unintentional weight loss over the last year or so. He came to the hospital as he continued to have shortness of breath in the emergency room was noted to have elevated BNP with CTA of chest showing bilateral pleural effusion left greater than right and multiple pulmonary nodules. He was also noted to have worsening renal function. He was recently seen Nephrology and was noted to have worsening renal function he thinks that might be contributed by contrast use for his prostate workup. However he says that he has had longstanding hypertension which has been uncontrolled. Currently being monitored by Nephrology as well. He has been taking all his medications. He is currently on nifedipine 120 mg, metoprolol 100 mg and spironolactone 50 mg along with terazosin as outpatient. At rest he says his shortness of breath is not worse. He is also currently using oxygen which does not use at home. No output has been recorded although he has been getting Lasix Review of Systems 2 Constitutional: Constitutional: Reports weakness and Reports weight loss Eyes: Eyes: Reports no additional eye complaints Cardiovascular: Cardiovascular: Denies chest pain, Denies rapid heart rate, Denies leg edema, Denies lightheadedness, Reports dyspnea on exertion and Denies orthopnea Respiratory: Respiratory: Reports cough, Reports dyspnea on exertion and Reports wheezing Neurologic: Reports system reviewed and no additional complaints, except as documented and Reports weakness Allergic/Immunologic: Allergic/Immunologic: Reports no additional allergic/immunologic complaints and Reports wheezing FOR[facility]LY [facility] Past Medical History Medical History CKD (chronic kidney disease) Subarachnoid hemorrhage Tubular adenoma COVID-19 vaccination refused History of testicular cancer Peripheral arterial disease Hypercholesterolemia Coronary artery disease Tobacco abuse COPD (chronic obstructive pulmonary disease) Hypertension Family History Family History Father No problems noted. Mother No problems noted. Maternal Grandmother Myocardial infarction Brother In good health Sister In good health Son In good health Son In good health Daughter In good health Sister Diabetes Surgical History Surgical History History of surgery Hx of colonoscopy Hx of prostate biopsy History of tonsillectomy History of testicular surgery Social History Social History Household Members: Spouse Housing: House Are you a primary pharmacist critical care to a significant other at home: No Do you presently have visiting nurse or other home services: No Alcohol intake: former Patient Tobacco Use Status: Current everyday Tobacco user Tobacco use type: Cigarette Cigarette Packs Per Day: 0.5 Cigarettes Per Day: 2 Years Smoked: 53 years- 10/PER DAY Smoked in Last 30 Days: Yes e-Cigarette/Vaping Use: Never Used Second Hand Smoke Exposure: Yes Use of substances other than those prescribed or required for medical reasons: No Advance Directives: No Advance Directives Information Provided: Yes Do you have a plan to hurt others: No Plan service: No Current occupational status: employed Current occupational exposures/hazards: No Cognitive needs: No Hearing needs: No Vision needs: Yes Meds Allergies Allergy/AdvReac Type Severity Reaction Status Date / Time Penicillins [PCN] Allergy Intermediate Hives Verified 08/20/24 01:54 Active Medications: Current Medications Acetaminophen (Acetaminophen 325 Mg Tablet) 650 mg PO Q6H PRN PRN Reason: Pain, Mild 1-3,fever,headache Last Admin: 08/20/24 10:38 Dose: 650 mg Albuterol/Ipratropium (Albuterol/Iprat 2.5/0.5mg 3 Ml Ampul.Neb) 3 ml INHALE RQ4H WHILE AWAKE PRN PRN Reason: Wheezing Calcium Carbonate (Calcium Carbonate 750 Mg Tab.Chew) 750 mg PO Q4H PRN PRN Reason: Heartburn Ceftriaxone Sodium (Ceftriaxone Sodium 1 Gm Vial) 1 gm IVPUSH Q24H ROMAN Azithromycin 500 mg/ Sodium (Chloride) 250 mls @ 125 mls/hr IV DAILY ROMAN Last Infusion: 08/20/24 12:41 Dose: Infused Magnesium Hydroxide (Milk Of Magnesia 30 Ml Oral.Susp) 30 ml PO DAILY PRN PRN Reason: Constipation Melatonin (Melatonin 3 Mg Tablet) 6 mg PO BEDTIME PRN PRN Reason: Insomnia Ondansetron HCl (Ondansetron Hcl 4 Mg/2 Ml Vial) 4 mg IVPUSH Q8H PRN PRN Reason: Nausea and Vomiting Oxycodone HCl (Oxycodone Hcl Immed Release 5 Mg Tablet) 5 mg PO Q6H PRN PRN Reason: Pain, Moderate(Pain Scale 4-6) Sodium Chloride (0.9 % Sodium Chloride Flush 3 Ml Syringe) [facility]ations ?Medication ?Instructions ?Recorded ?Confirmed ?Last Taken ?Type aspirin 81 mg tablet,delayed 81 mg PO DAILY@0600 03/04/21 08/20/24 08/19/24 History release (Adult Aspirin Regimen) cyanocobalamin (vitamin B-12) 500 mcg PO DAILY@1800 09/25/22 08/20/24 08/19/24 History 1,000 mcg capsule finasteride 5 mg tablet 5 mg PO Q OTHER DAY 03/15/24 08/20/24 08/19/24 History Physical Exam 2 Vital Signs: Vital Signs: Last Vital Signs Temp 98.1 F 08/20/24 12:31 Pulse 68 08/20/24 12:38 Resp 18 08/20/24 12:38 BP 182/98 H 08/20/24 12:38 Pulse Ox 92 08/20/24 12:31 O2 Del Method Nasal Cannula 08/20/24 12:31 O2 Flow Rate 2 08/20/24 12:31 BMI result Body Mass Index 16.3 Const: General: cooperative, comfortable, alert and awake Nutritional Appearance: average body habitus Orientation/consciousness: patient oriented x3 HEENT: Head: Yes normocephalic and Yes atraumatic Neck: Neck: Yes trachea midline, Yes supple and Yes JVD Resp: Effort & Inspection: normal respiratory effort Auscultation: wheezes and diminished lung sounds Cardio: Jugular venous distension: JVD Rate: regular rate Rhythm: r egular rhythm Heart sounds: S1 normal heart sound present, S2 normal heart sound present, no click, no gallops, no murmurs and no rubs GI: Auscultation: normal bowel sounds Skin: General skin exam: no rashes or lesions noted and ecchymosis Neuro: General: patient oriented x3 and no focal motor deficits Extrem: General: Yes no clubbing, cyanosis or edema Objective Labs and Meds 08/20/24 01:47 08/20/24 01:53 Lab results: Laboratory Results - last 24 hr 08/20/24 08/20/24 01:47 01:53 WBC 7.4 RBC 3.50 L D Hgb 10.3 L D Hct 30.3 L D MCV 86.6 MCH 29.4 MCHC 34.0 RDW 14.7 Plt Count 221 D MPV 9.4 Immature Gran % (Auto) 0.3 Neut % (Auto) 69.3 Lymph % (Auto) 14.5 L [place] % (Auto) 11.4 H Eos % (Auto) 4.1 H Baso % (Auto) 0.4 Lymph # (Auto) 1.1 L [place] # (Auto) 0.8 Eos # (Auto) 0.3 Baso # (Auto) 0.0 Abs Immat Gran (auto) 0.02 Absolute Neuts (auto) 5.1 Absolute Nucleated RBC 0.000 Nucleated RBC % (auto) 0.0 Sodium 137 Potassium 3.7 Chloride 109 H Carbon Dioxide 14 L Anion Gap 18 BUN 50 H Creatinine 4.65 H* Estim Creat Clear Calc 11.7 Estimated GFR 13 Random Glucose 153 H Calcium 8.4 Total Bilirubin 0.3 AST 22 ALT 17 Alkaline Phosphatase 103 Troponin I High Sens 21.0 D B-Natriuretic Peptide 1183 H Total Protein 6.4 L Albumin 3.2 L Lipase 36 Influenza Type A (PCR) NEGATIVE Influenza Type B (PCR) NEGATIVE RSV RNA Qual (PCR) NEGATIVE SARS-CoV-2 RNA (RT-PCR) NEGATIVE Assessment and Plan (1) New onset of congestive heart failure: Status: Acute New onset congestive heart failure with echocardiogram showing predominantly preserved LV systolic function with LVH with possible diastolic dysfunction elevated right atrial pressures. Full echo to pursue be followed. Most likely related to hypertensive heart disease related to longstanding uncontrolled blood pressure. Blood pressure is significantly elevated on current medications. Would add hydralazine 50 mg b.i.d. to his regimen to better control blood pressure. Continue other therapy as prescribed. Continue IV diuresis although gently does not appear to be in florid heart failure at this point time. His shortness of breath is most likely also explained by chronic smoking and COPD and this needs to be pursued in workup and management. Also his BNP is much more significantly elevated compared to his overall heart failure syndrome most likely related to reduced clearance due to worsening renal function. Continue monitor renal function closely. Strict intake and output chart needs to be pursued. Continue spironolactone therapy if okay with Nephrology team. Will follow with you Procedures Date of Service Date of Service: 08/20/24
[2024-08-20] MEDS: Clopidogrel Bisulfate 75 MG TABLET PO (17:17)
[2024-08-20] MEDS: NIFEdipine ER 60 MG TAB.ER.24 120 MG PO (17:17)
[2024-08-20] MEDS: Spironolactone 25 MG TABLET 50 MG PO (17:18)
[2024-08-20] MEDS: 0.9 % Sodium Chloride Flush 3 ML SYRINGE IVFLUSH ×2 (17:18→20:22)
[2024-08-20] MEDS: Cyanocobalamin (Vitamin B-12) 500 MCG TABLET PO (17:18)
[2024-08-20] MEDS: Doxazosin Mesylate 2 MG TABLET 4 MG PO (20:16)
[2024-08-21] VITALS (11 sets, daily range): BP systolic 162–193; BP diastolic 74–98; PULSE 80–92; RESP 14–20; TEMP 36.6–37.4; O2SAT 88–92; BMI 19.6
[2024-08-21] MEDS: Aspirin Enteric Coated 81 MG TABLET.DR PO (05:24)
[2024-08-21] MEDS: cefTRIAXone sodium 1 GM VIAL IVPUSH (05:26)
[2024-08-21 07:28] LABS: MANUAL DIFF FLAG NO
[2024-08-21 07:31] LABS: Basophils Percent Auto 0.3 % (0-2); Eosinophils Absolute Auto 0.3 X10*3/uL (0.0-0.4); Eosinophils Percent Auto 4.3 % (0-4); Hematocrit 31.9 % (42.0-52.0); Hemoglobin 10.9 g/dl (14.0-18.0); Imm Gran Abs Auto 0.02 X10*3/uL (0.00-0.03); Imm Gran Pct Auto 0.3 % (0.0-0.4); Lymphocytes Absolute Auto 0.9 X10*3/uL (1.2-4.9); Mean Corpuscular HGB Conc 34.2 g/dl (31.0-36.0); Mean Corpuscular Hemoglobin 29.8 pg (27.0-33.0); Mean Corpuscular Volume 87.2 fL (80.0-98.0); Mean Platelet Volume 10.4 fL (9.4-12.4); Monocytes Absolute Auto 0.6 X10*3/uL (0.1-1.2); Monocytes Percent Auto 10.3 % (2-11); Neutrophils Percent Auto 69.8 % (45-73); Platelet Count 233 X10*3/uL (160-400); Red Blood Count 3.66 X10*6/uL (4.60-5.80); Red Cell Distribution Width 14.8 % (11.0-16.0); White Blood Count 5.8 X10*3/uL (4.8-10.8)
[2024-08-21 08:03] LABS: Alanine Aminotransferase 14 U/L (0-40); Albumin Level 3.3 g/dL (3.5-5.0); Alkaline Phosphatase 95 U/L (39-117); Anion Gap 15 (12-20); Aspartate Amino Transferase 18 U/L (5-37); Bilirubin Total 0.2 mg/dL (0.0-1.0); Blood Urea Nitrogen 57 mg/dL (9-16); Calcium 8.5 mg/dL (8.4-10.2); Carbon Dioxide 18 mmol/L (22-29); Chloride 107 mmol/L (96-108); Creatinine Clr Calc Pharmacy 13.2; Estimated Glomerular Filt Rate 12; Glucose Random 117 mg/dL (60-115); Magnesium 2.1 mg/dL (1.6-2.6); Potassium 4.1 mmol/L (3.3-5.1); Sodium 136 mmol/L (135-145); Total Protein 6.3 g/dL (6.5-8.0)
[2024-08-21] MEDS: Metoprolol Succinate ER 100 MG TAB.ER.24H PO (08:45)
[2024-08-21] MEDS: Acetaminophen 325 MG TABLET 650 MG PO ×2 (08:45→17:52)
[2024-08-21] MEDS: hydrALAZINE HCl 50 MG TABLET PO (08:45)
[2024-08-21] MEDS: Spironolactone 25 MG TABLET 50 MG PO (08:45)
[2024-08-21] MEDS: Clopidogrel Bisulfate 75 MG TABLET PO (08:45)
[2024-08-21] MEDS: NIFEdipine ER 60 MG TAB.ER.24 120 MG PO (08:45)
[2024-08-21] MEDS: Azithromycin 500 MG in 0.9 % Sodium Chloride 250 ML 125 MG IV (08:46)
[2024-08-21] MEDS: 0.9 % Sodium Chloride Flush 3 ML SYRINGE IVFLUSH ×3 (08:46→19:38)
[2024-08-21] MEDS: Finasteride 5 MG TABLET PO (08:53)
--- NOTE | 2024-08-21 10:29 | MHC.CM.PN ---
IMM 08/21. Pt self-care, lives at home with his . Pts or son will transport him home at discharge. Education provided on HCP, pt declined at this time. PCP: Dr. Rodriguez Po
--- NOTE | 2024-08-21 12:04 | PM.PNCARD ---
Subjective Subjective Date of Service: 08/21/24 Principal diagnosis: Elevated BNP, uncontrolled blood pressure. Interval history: Patient says she feels lousy. Not able to further elaborate. He said he was having difficulty walking. He denies any significant shortness of breath although his urine output is only minimal-300 cc. Echocardiogram did not show any significant LV systolic dysfunction showed mild LVH with diastolic dysfunction and mildly elevated right atrial pressures. Renal function is today marginally worse. His blood pressure remains difficult control. Elevated blood pressure findings. Review of Systems Constitutional: Reports lethargy, Reports weakness and Reports weight loss Cardiovascular: Denies chest pain, Denies leg edema, Denies lightheadedness, Denies palpitations and Reports dyspnea on exertion Respiratory: Reports no additional respiratory complaints and Reports dyspnea on exertion Gastrointestinal: Reports no additional gastrointestinal complaints Reports weakness Endocrine: Denies palpitations Physical Exam Vital Signs: Last Vital Signs Temp 98.3 F 08/21/24 10:51 Pulse 80 08/21/24 10:51 Resp 18 08/21/24 10:51 BP 177/93 H 08/21/24 10:51 Pulse Ox 92 08/21/24 10:51 O2 Del Method Nasal Cannula 08/21/24 10:51 O2 Flow Rate 2 08/21/24 10:51 BMI result Body Mass Index 19.6 Const General: cooperative, comfortable, alert and awake Nutritional Appearance: average body habitus Orientation/consciousness: patient oriented x3 HEENT Head: Yes normocephalic and Yes atraumatic Neck Neck: Yes trachea midline, Yes supple and Yes no JVD Resp Effort & Inspection: normal respiratory effort Auscultation: wheezes and diminished lung sounds Cardio Jugular venous distension: no JVD Rate: regular rate Rhythm: regular rhythm Heart sounds: S1 normal heart sound present, S2 normal heart sound present, no click, no gallops, no murmurs and no rubs GI Auscultation: normal bowel sounds Skin General skin exam: no rashes or lesions noted and ecchymosis Neuro General: patient oriented x3 and no focal motor deficits Extrem General: Yes no clubbing, cyanosis or edema Objective Labs and Meds 08/21/24 06:38 08/21/24 06:38 Lab results: Laboratory Results - last 24 hr 08/21/24 06:38 WBC 5.8 RBC 3.66 L Hgb 10.9 L Hct 31.9 L MCV 87.2 MCH 29.8 MCHC 34.2 RDW 14.8 Plt Count 233 MPV 10.4 Immature Gran % (Auto) 0.3 Neut % (Auto) 69.8 Lymph % (Auto) 15.0 L [place] % (Auto) 10.3 Eos % (Auto) 4.3 H Baso % (Auto) 0.3 Lymph # (Auto) 0.9 L [place] # (Auto) 0.6 Eos # (Auto) 0.3 Baso # (Auto) 0.0 Abs Immat Gran (auto) 0.02 Absolute Neuts (auto) 4.0 Absolute Nucleated RBC 0.000 Nucleated RBC % (auto) 0.0 Sodium 136 Potassium 4.1 Chloride 107 Carbon Dioxide 18 L Anion Gap 15 BUN 57 H Creatinine 4.95 H* Estim Creat Clear Calc 13.2 Estimated GFR 12 Random Glucose 117 H Calcium 8.5 Magnesium 2.1 Total Bilirubin 0.2 AST 18 ALT 14 Alkaline Phosphatase 95 Total Protein 6.3 L Albumin 3.3 L Progress Note: A&P Assessment and plan (1) Uncontrolled hypertension: Status: Acute Assessment and Plan: Uncontrolled hypertension in this elderly man with history of peripheral vascular disease. Likelihood of renal artery stenosis is high. consider renal artery duplex again given worsening renal function uncontrolled blood pressure new onset heart failure and/or vascular consult. Meanwhile increase hydralazine to 100 mg b.i.d.. Continue nifedipine, metoprolol as well as spironolactone which may need to be held given his worsening renal function. Consider Nephrology consultation as well. Continue terazosin. Start on high-intensity statin therapy and dual antiplatelet therapy. Currently not on any statin therapy surprisingly given his diffuse vascular disease. (2) New onset of congestive heart failure: Status: Acute Assessment and Plan: New onset congestive heart failure with elevated BNP with elevated right atrial pressures on echocardiogram with only marginal response to diuretic therapy. Nephrology consult needs to be pursued question needs renal replacement therapy. He is feeling generally not well and may be related to uremia. Meanwhile continue diuresis and strict intake and output chart. Continue monitor renal function. Overall prognosis is guarded. Will follow with you Time Spent With Patient Time: Total time managing care of this patient today ____ minutes. Progress Note: Quality Stroke Does the patient have a stroke diagnosis?: No Procedures Date of Service Date of Service: 08/21/24
--- NOTE | 2024-08-21 14:07 | P.PNIM_ITS ---
Subjective Subjective Date of Service: 08/21/24 Interval History: Slow to improve overall; no acute issues overnight Review of Systems Denies chest pain Admits shortness of breath Denies nausea vomiting diarrhea Denies fever chills Physical Exam 2 Vital Signs: Vital Signs: Last Vital Signs Temp 98.3 F 08/21/24 10:51 Pulse 80 08/21/24 10:51 Resp 18 08/21/24 10:51 BP 177/93 H 08/21/24 10:51 Pulse Ox 92 08/21/24 10:51 O2 Del Method Nasal Cannula 08/21/24 10:51 O2 Flow Rate 2 08/21/24 10:51 BMI result Body Mass Index 19.6 Const: Other: Awake alert; slow to respond. Ill-appearing. HEENT: Other: Membranes dry Resp: Other: Diminished at bases left greater than right with scant expiratory wheezes Cardio: Other: No S4; positive S1-S2; no S3 murmurs rubs or gallops GI: Other: Soft nontender nondistended normoactive bowel sounds Neuro: Other: Cranial nerves 2-12 grossly intact as tested. Motor is 5/5 all extremities. Sensation is intact. Gait not observed Extrem: Other: No edema bilaterally Objective Data Active Medications Acetaminophen (Acetaminophen 325 Mg Tablet) 650 mg PO Q6H PRN PRN Reason: Pain, Mild 1-3,fever,headache Last Admin: 08/21/24 08:45 Dose: 650 mg Documented By: YANG Albuterol/Ipratropium (Albuterol/Iprat 2.5/0.5mg 3 Ml Ampul.Neb) 3 ml INHALE RQ4H WHILE AWAKE PRN PRN Reason: Wheezing Aspirin (Aspirin Enteric Coated 81 Mg Tablet.) 81 mg PO DAILY@0600 [facility] Last Admin: 08/21/24 05:24 Dose: 81 mg Documented By: LUCIANO Calcium Carbonate (Calcium Carbonate 750 Mg Tab.Chew) 750 mg PO Q4H PRN PRN Reason: Heartburn Ceftriaxone Sodium (Ceftriaxone Sodium 1 Gm Vial) 1 gm IVPUSH Q24H [facility] Last Admin: 08/21/24 05:26 Dose: 1 gm Documented By: LUCIANO Clopidogrel Bisulfate (Clopidogrel Bisulfate 75 Mg Tablet) 75 mg PO DAILY [facility] Last Admin: 08/21/24 08:45 Dose: 75 mg Documented By: YANG Cyanocobalamin (Cyanocobalamin (Vitamin B-12) 500 Mcg Tablet) 500 mcg PO DAILY@1800 [facility] Last Admin: 08/20/24 17:18 Dose: 500 mcg Documented By: YANG Doxazosin Mesylate (Doxazosin Mesylate 2 Mg Tablet) 4 mg PO BEDTIME [facility] Last Admin: 08/20/24 20:16 Dose: 4 mg Documented By: LUCIANO Finasteride (Finasteride 5 Mg Tablet) 5 mg PO Q2D [facility] Last Admin: 08/21/24 08:53 Dose: 5 mg Documented By: YANG Hydralazine HCl (Hydralazine Hcl 25 Mg Tablet) 75 mg PO TID [facility]; Protocol Azithromycin 500 mg/ Sodium (Chloride) 250 mls @ 125 mls/hr IV DAILY [facility] Last Infusion: 08/21/24 11:02 Dose: Infused Documented By: YANG Magnesium Hydroxide (Milk Of Magnesia 30 Ml Oral.Susp) 30 ml PO DAILY PRN PRN Reason: Constipation Melatonin (Melatonin 3 Mg Tablet) 6 mg PO BEDTIME PRN PRN Reason: Insomnia Metoprolol Succinate (Metoprolol Succinate Er 100 Mg Tab.Er.24h) 100 mg PO DAILY [facility]; Protocol Last Admin: 08/21/24 08:45 Dose: 100 mg Documented By: YANG Nifedipine (Nifedipine Er 60 Mg Tab.Er.24) 120 mg PO DAILY [facility]; Protocol Last Admin: 08/21/24 08:45 Dose: 120 mg Documented By: YANG Ondansetron HCl (Ondansetron Hcl 4 Mg/2 Ml Vial) 4 mg IVPUSH Q8H PRN PRN Reason: Nausea and Vomiting Oxycodone HCl (Oxycodone Hcl Immed Release 5 Mg Tablet) 5 mg PO Q6H PRN PRN Reason: Pain, Moderate(Pain Scale 4-6) Sodium Chloride (0.9 % Sodium Chloride Flush 3 Ml Syringe) 3 ml IVFLUSH QSHIFT [facility] Last Admin: 08/21/24 08:46 Dose: 3 ml Documented By: YANG Spironolactone (Spironolactone 25 Mg Tablet) 50 mg PO DAILY [facility]; Protocol Last Admin: 08/21/24 08:45 Dose: 50 mg Documented By: YANG Labs 08/21/24 06:38 08/21/24 06:38 Labs: Laboratory Results - last 24 hr 08/21/24 06:38 MCV 87.2 MCH 29.8 MCHC 34.2 RDW 14.8 Plt Count 233 MPV 10.4 Immature Gran % (Auto) 0.3 Neut % (Auto) 69.8 Lymph % (Auto) 15.0 L [place] % (Auto) 10.3 Eos % (Auto) 4.3 H Baso % (Auto) 0.3 Lymph # (Auto) 0.9 L [place] # (Auto) 0.6 Eos # (Auto) 0.3 Baso # (Auto) 0.0 Abs Immat Gran (auto) 0.02 Absolute Neuts (auto) 4.0 Absolute Nucleated RBC 0.000 Nucleated RBC % (auto) 0.0 Anion Gap 15 Estim Creat Clear Calc 13.2 Estimated GFR 12 Random Glucose 117 H Calcium 8.5 Magnesium 2.1 Total Bilirubin 0.2 AST 18 ALT 14 Alkaline Phosphatase 95 Total Protein 6.3 L Albumin 3.3 L Assessment and Plan (1) New onset of congestive heart failure: Status: Acute (2) Uncontrolled hypertension: Status: Acute Plan 69-year-old male with known history of peripheral artery disease, CAD, COPD and chronic tobacco abuse presents with worsening shortness of breath over several months for along with unintentional weight loss. Workup in the emergency room consistent for likely pulmonary edema with bilateral pleural effusions. 1.Acute CHF -aggressive diuresis with Bumex -2D echo reviewed by Cardiology -aggressive afterload reduction.. 2. CKD 3B -continue outpatient therapies (appears at baseline) -renal consult -follow renals/divalents 3. Hypertension -continue outpatient therapies -increase hydralazine to 75 t.i.d. -adjust therapies based on clinical response (got all home meds earlier this a.m.) 4. Bilateral pleural effusion (in backdrop of 30 lb unintentional weight loss) -suspicious for malignancy -diagnostic thoracentesis by Interventional Radiology -further plans based on forthcoming data 5. Peripheral artery disease -continue Plavix/aspirin Full code Heparin Patient will require 2 midnights going forward of inpatient stay to aggressively treat acute CHF and evaluate new pleural effusions in the backdrop of chronic tobacco abuse. This can not be achieved a lesser acute setting Quality Stroke Does the patient have a stroke diagnosis?: No VTE Prior VTE?: No VTE Risk Level:: Medical - moderate - high VTE Device Contraindication: Treatment Not Indicated VTE Drug Contraindication: N/A - Med Ordered
[2024-08-21] MEDS: hydrALAZINE HCl 25 MG TABLET 75 MG PO ×2 (14:34→19:37)
[2024-08-21] MEDS: ondansetron HCL 4 MG/2 ML VIAL IVPUSH (17:46)
[2024-08-21] MEDS: hydrALAZINE HCl 20 MG/ML VIAL 10 MG IVPUSH (17:47)
[2024-08-21] MEDS: oxyCODONE HCl Immed Release 5 MG TABLET PO (19:37)
[2024-08-21] MEDS: Doxazosin Mesylate 2 MG TABLET 4 MG PO (19:37)
[2024-08-22] VITALS (22 sets, daily range): BP systolic 135–180; BP diastolic 77–97; PULSE 78–87; RESP 13–21; TEMP 36.3–37.2; O2SAT 87–96; BMI 19.4
[2024-08-22] MEDS: Aspirin Enteric Coated 81 MG TABLET.DR PO (05:37)
[2024-08-22] MEDS: cefTRIAXone sodium 1 GM VIAL IVPUSH (05:37)
[2024-08-22 06:47] LABS: MANUAL DIFF FLAG NO
[2024-08-22 06:58] LABS: Basophils Percent Auto 0.5 % (0-2); Eosinophils Absolute Auto 0.2 X10*3/uL (0.0-0.4); Eosinophils Percent Auto 3.5 % (0-4); Hematocrit 30.5 % (42.0-52.0); Imm Gran Abs Auto 0.03 X10*3/uL (0.00-0.03); Imm Gran Pct Auto 0.5 % (0.0-0.4); Lymphocytes Absolute Auto 0.8 X10*3/uL (1.2-4.9); Lymphocytes Percent Auto 14.4 % (20-40); Mean Corpuscular HGB Conc 32.8 g/dl (31.0-36.0); Mean Corpuscular Hemoglobin 29.4 pg (27.0-33.0); Mean Corpuscular Volume 89.7 fL (80.0-98.0); Mean Platelet Volume 10.3 fL (9.4-12.4); Monocytes Absolute Auto 0.6 X10*3/uL (0.1-1.2); Monocytes Percent Auto 10.4 % (2-11); Neutrophils Percent Auto 70.7 % (45-73); Platelet Count 214 X10*3/uL (160-400); Red Cell Distribution Width 15.1 % (11.0-16.0); White Blood Count 5.7 X10*3/uL (4.8-10.8)
[2024-08-22 07:26] LABS: Alanine Aminotransferase 14 U/L (0-40); Albumin Level 3.2 g/dL (3.5-5.0); Alkaline Phosphatase 94 U/L (39-117); Anion Gap 15 (12-20); Aspartate Amino Transferase 15 U/L (5-37); Bilirubin Total 0.2 mg/dL (0.0-1.0); Blood Urea Nitrogen 61 mg/dL (9-16); Calcium 8.4 mg/dL (8.4-10.2); Carbon Dioxide 18 mmol/L (22-29); Chloride 107 mmol/L (96-108); Glucose Random 110 mg/dL (60-115); Magnesium 2.1 mg/dL (1.6-2.6); Sodium 136 mmol/L (135-145)
[2024-08-22 07:27] LABS: Creatinine Clr Calc Pharmacy 12.3; Estimated Glomerular Filt Rate 11
[2024-08-22] MEDS: hydrALAZINE HCl 25 MG TABLET 75 MG PO ×3 (09:04→22:41)
[2024-08-22] MEDS: Spironolactone 25 MG TABLET 50 MG PO (09:05)
[2024-08-22] MEDS: NIFEdipine ER 60 MG TAB.ER.24 120 MG PO (09:06)
[2024-08-22] MEDS: Metoprolol Succinate ER 100 MG TAB.ER.24H PO (09:06)
[2024-08-22] MEDS: Clopidogrel Bisulfate 75 MG TABLET PO (09:07)
[2024-08-22] MEDS: Milk of Magnesia 30 ML ORAL.SUSP PO (09:07)
[2024-08-22] MEDS: 0.9 % Sodium Chloride Flush 3 ML SYRINGE IVFLUSH ×3 (09:09→22:42)
[2024-08-22] MEDS: Azithromycin 500 MG in 0.9 % Sodium Chloride 250 ML 125 MG IV (09:46)
--- NOTE | 2024-08-22 10:37 | P.PNCA_ITS ---
Subjective Subjective Date of Service: 08/22/24 Principal diagnosis: Elevated BNP, uncontrolled blood pressure. Interval history: Seen in follow-up. Patient states he is overall not feeling well. Generalized uneasiness/not feeling good. With activity, he does get short of breath. Advanced renal dysfunction. Review of Systems Review of Systems Yes all other systems are reviewed and are negative Constitutional: Reports as per HPI, Reports fatigue, Reports lethargy, Reports malaise and Reports poor appetite Eyes: Reports as per HPI and Denies no additional eye complaints Denies system reviewed and no additional complaints, except as documented and Reports as per HPI Cardiovascular: Reports as per HPI, Reports no additional cardiovascular complaints, Denies acrocyanosis, Denies cool extremities, Denies chest pain, Denies leg edema, Denies lightheadedness, Denies palpitations and Reports dyspnea Respiratory: Reports as per HPI, Denies no additional respiratory complaints and Reports dyspnea Gastrointestinal: Reports as per HPI and Denies no additional gastrointestinal complaints Genitourinary: Reports no additional male genitourinary complaints and Reports as per HPI Musculoskeletal: Reports no additional musculoskeletal complaints and Reports as per HPI Skin/Breast: Reports system reviewed and no additional complaints, except as docu Reports system reviewed and no additional complaints, except as documented and Reports as per HPI Psychiatric: Reports no additional psychiatric complaints and Reports as per HPI Endocrine: Reports no additional endocrine complaints, Reports as per HPI, Reports fatigue and Denies palpitations Hematologic/Lymphatic: Reports no additional hematologic/lymphatic complaints and Reports as per HPI Allergic/Immunologic: Reports no additional allergic/immunologic complaints and Reports as per HPI Physical Exam Vital Signs: Last Vital Signs Temp 98.0 F 08/22/24 07:28 Pulse 86 08/22/24 09:06 Resp 20 08/22/24 07:28 BP 161/81 H 08/22/24 09:06 Pulse Ox 89 L 08/22/24 07:28 O2 Del Method Nasal Cannula 08/22/24 07:28 O2 Flow Rate 1.5 08/22/24 07:28 BMI result Body Mass Index 19.4 Const General: comfortable and no acute distress Orientation/consciousness: patient oriented x3 HEENT Other: Unremarkable Head: Yes normal to inspection Neck Neck: Yes normal visual inspection Chest Chest palpation & inspection: normal inspection of the chest Resp Auscultation: clear to auscultation bilaterally Cardio Palpation: normal PMI Heart sounds: S1 normal heart sound present, S2 normal heart sound present, no gallops, no murmurs and no rubs GI Palpation (GI): Soft to palpation Back/Spine/Pelvis Other: unremarkable Skin General skin exam: no rashes or lesions noted Neuro General: patient oriented x3 Extrem General: Yes normal to inspection Psych Mental Status: mental status grossly normal Objective Labs and Meds 08/22/24 06:02 08/22/24 06:02 Lab results: Laboratory Results - last 24 hr 08/22/24 06:02 WBC 5.7 RBC 3.40 L Hgb 10.0 L Hct 30.5 L MCV 89.7 MCH 29.4 MCHC 32.8 RDW 15.1 Plt Count 214 MPV 10.3 Immature Gran % (Auto) 0.5 H Neut % (Auto) 70.7 Lymph % (Auto) 14.4 L [place] % (Auto) 10.4 Eos % (Auto) 3.5 Baso % (Auto) 0.5 Lymph # (Auto) 0.8 L [place] # (Auto) 0.6 Eos # (Auto) 0.2 Baso # (Auto) 0.0 Abs Immat Gran (auto) 0.03 Absolute Neuts (auto) 4.0 Absolute Nucleated RBC 0.000 Nucleated RBC % (auto) 0.0 Sodium 136 Potassium 4.0 Chloride 107 Carbon Dioxide 18 L Anion Gap 15 BUN 61 H Creatinine 5.28 H* Estim Creat Clear Calc 12.3 Estimated GFR 11 Random Glucose 110 Calcium 8.4 Magnesium 2.1 Total Bilirubin 0.2 AST 15 ALT 14 Alkaline Phosphatase 94 Total Protein 6.0 L Albumin 3.2 L Progress Note: A&P Assessment and plan (1) Uncontrolled hypertension: Status: Acute Assessment and Plan: Currently on metoprolol, nifedipine, spironolactone, doxazosin, hydralazine. Blood pressure is still less than ideal. We will need to get Nephrology involved. (2) New onset of congestive heart failure: Status: Acute Assessment and Plan: In the recent echocardiogram, LVEF is 55-60%. Moderately dilated right ventricle with low normal function. Moderate biatrial enlargement. Elevated right heart pressures. Could be all related to advanced renal dysfunction. Creatinine continues to go up. Await Nephrology input regarding timing of dialysis initiation. Time Spent With Patient Time: Total time managing care of this patient today ____ minutes. Progress Note: Quality Stroke Does the patient have a stroke diagnosis?: No Procedures Date of Service Date of Service: 08/22/24
--- NOTE | 2024-08-22 11:10 | MHC.CM.PN ---
Per ROUNDS discussion, Patient is not yet medically cleared for dc (2 IV ABT); home is the goal and CM will continue to follow.
--- NOTE | 2024-08-22 11:42 | MHC.CLN ---
RE: CONSULT PT REPORTED 30# UNINTENTIONAL WT LOSS CURRENT WT 65KG (08/22/24) PREVIOUS WT 63.5KG (01/06/24) ONE YEAR AGO 63.9KG (08/05/23) PT WITH NO S/S SIGNIFICANT WT LOSS X 1 YEAR CONTINUE CURRENT CARE PLAN
--- NOTE | 2024-08-22 11:43 | P.CONNP_ITS ---
History of Present Illness Reason for Consult Consult date: 08/22/24 Reason for consult: Accelerated hypertension advanced renal failure Chief Complaint Chief complaint: acute chf History of Present Illness Narrative: Zi is a 69-year-old man with a history of longstanding smoking admitted with shortness of breath and cough. He has been worked up for the same. He has a history of resistant hypertension in the setting of significant renal artery stenosis. In May he underwent renal angiogram with bilateral stent placement. There has been a gradual worsening of renal function with a creatinine staying above 4 mg/dL. During this admission creatinine is bumped up to 5 mg/dL. Blood pressure is still suboptimal. Hence this consultation. Review of Systems Constitutional: Denies fever(s) and Denies weight loss Cardiovascular: Denies chest pain Respiratory: Denies hemoptysis Gastrointestinal: Denies abdominal pain, Denies diarrhea and Denies nausea Musculoskeletal: Denies back pain Denies focal weakness PMFSH Past Medical History Medical History CKD (chronic kidney disease) Subarachnoid hemorrhage Tubular adenoma COVID-19 vaccination refused History of testicular cancer Peripheral arterial disease Hypercholesterolemia Coronary artery disease Tobacco abuse COPD (chronic obstructive pulmonary disease) Hypertension Family History Family History Father No problems noted. Mother No problems noted. Maternal Grandmother Myocardial infarction Brother In good health Sister In good health Son In good health Son In good health Daughter In good health Sister Diabetes Surgical History Surgical History History of surgery Hx of colonoscopy Hx of prostate biopsy History of tonsillectomy History of testicular surgery Social History Social History Household Members: Spouse, Significant Other and Family Household Members Other:: 6 Housing: House Are you a primary small animal caretaker to a significant other at home: No Do you presently have visiting nurse or other home services: No Alcohol intake: former Patient Tobacco Use Status: Former Tobacco user Tobacco use type: Cigarette Cigarette Packs Per Day: 0.5 Cigarettes Per Day: 2 Years Smoked: 53 years- 10/PER DAY e-Cigarette/Vaping Use: Never Used Second Hand Smoke Exposure: Yes service: No Current occupational status: employed Current occupational exposures/hazards: No Cognitive needs: No Hearing needs: No Vision needs: Yes Meds Allergies Allergy/AdvReac Type Severity Reaction Status Date / Time Penicillins [PCN] Allergy Intermediate Hives Verified 08/20/24 01:54 Active Medications: Current Medications Acetaminophen (Acetaminophen 325 Mg Tablet) 650 mg PO Q6H PRN PRN Reason: Pain, Mild 1-3,fever,headache Last Admin: 08/21/24 17:52 Dose: 650 mg Albuterol/Ipratropium (Albuterol/Iprat 2.5/0.5mg 3 Ml Ampul.Neb) 3 ml INHALE RQ4H WHILE AWAKE PRN PRN Reason: Wheezing Aspirin (Aspirin Enteric Coated 81 Mg Tablet.Dr) 81 mg PO DAILY@0600 [facility] Last Admin: 08/22/24 05:37 Dose: 81 mg Calcium Carbonate (Calcium Carbonate 750 Mg Tab.Chew) 750 mg PO Q4H PRN PRN Reason: Heartburn Ceftriaxone Sodium (Ceftriaxone Sodium 1 Gm Vial) 1 gm IVPUSH Q24H [facility] Last Admin: 08/22/24 05:37 Dose: 1 gm Clopidogrel Bisulfate (Clopidogrel Bisulfate 75 Mg Tablet) 75 mg PO DAILY [facility] Last Admin: 08/22/24 09:07 Dose: 75 mg Cyanocobalamin (Cyanocobalamin (Vitamin B-12) 500 Mcg Tablet) 500 mcg PO DAILY@1800 [facility] Last Admin: 08/21/24 14:35 Dose: Not Given Doxazosin Mesylate (Doxazosin Mesylate 2 Mg Tablet) 4 mg PO BEDTIME [facility] Last Admin: 08/21/24 19:37 Dose: 4 mg Finasteride (Finasteride 5 Mg Tablet) 5 mg PO Q2D [facility] Last Admin: 08/21/24 08:53 Dose: 5 mg Hydralazine HCl (Hydralazine Hcl 25 Mg Tablet) 75 mg PO TID [facility]; Protocol Last Admin: 08/22/24 09:04 Dose: 75 mg Azithromycin 500 mg/ Sodium (Chloride) 250 mls @ 125 mls/hr IV DAILY [facility] Last Admin: 08/22/24 09:46 Dose: 125 mls/hr Magnesium Hydroxide (Milk Of Magnesia 30 Ml Oral.Susp) 30 ml PO DAILY PRN PRN Reason: Constipation Last Admin: 08/22/24 09:07 Dose: 30 ml Melatonin (Melatonin 3 Mg Tablet) 6 mg PO BEDTIME PRN PRN Reason: Insomnia Metoprolol Succinate (Metoprolol Succinate Er 100 Mg Tab.Er.24h) 100 mg PO DAILY [facility]; Protocol Last Admin: 08/22/24 09:06 Dose: 100 mg Nifedipine (Nifedipine Er 60 Mg Tab.Er.24) 120 mg PO DAILY [facility]; Protocol Last Admin: 08/22/24 09:06 Dose: 120 mg Ondansetron HCl (Ondansetron Hcl 4 Mg/2 Ml Vial) 4 mg IVPUSH Q8H PRN PRN Reason: Nausea and Vomiting Last Admin: 08/21/24 17:46 Dose: 4 mg Oxycodone HCl (Oxycodone Hcl Immed Release 5 Mg Tablet) 5 mg PO Q6H PRN PRN Reason: Pain, Moderate(Pain Scale 4-6) Last Admin: 08/21/24 19:37 Dose: 5 mg Sodium Chloride (0.9 % Sodium Chloride Flush 3 Ml Syringe) [facility] Admin: 08/22/24 09:09 Dose: 3 ml Spironolactone (Spironolactone 25 Mg Tablet) 50 mg PO DAILY [facility]; Protocol Last Admin: 08/22/24 09:05 Dose: 50 mg Home Medications ?Medication ?Instructions ?Recorded ?Confirmed ?Last Taken ?Type aspirin 81 mg tablet,delayed 81 mg PO DAILY@0600 03/04/21 08/20/24 08/19/24 History release (Adult Aspirin Regimen) cyanocobalamin (vitamin B-12) 500 mcg PO DAILY@1800 09/25/22 08/20/24 08/19/24 History 1,000 mcg capsule finasteride 5 mg tablet 5 mg PO Q OTHER DAY 03/15/24 08/20/24 08/19/24 History Physical Exam Vital Signs: Last Vital Signs Temp 97.3 F 08/22/24 11:36 Pulse 78 08/22/24 11:36 Resp 20 08/22/24 11:36 BP 144/80 H 08/22/24 11:36 Pulse Ox 90 L 08/22/24 11:36 O2 Del Method Nasal Cannula 08/22/24 11:36 O2 Flow Rate 1 08/22/24 11:36 BMI result Body Mass Index 19.4 Awake. Comfortable. Neck is supple. Mucosa moist. Lungs bilateral scattered rhonchi. Heart S1-S2 heard no gallop. Abdomen soft. Extremities no edema. No involuntary movements. No myoclonus. Results Lab Results 08/22/24 06:02 08/22/24 06:02 Lab results: Chemistry 08/20/24 08/21/24 08/22/24 01:53 06:38 06:02 Sodium 137 136 136 Potassium 3.7 4.1 4.0 Carbon Dioxide 14 L 18 L 18 L BUN 50 H 57 H 61 H Creatinine 4.65 H* 4.95 H* 5.28 H* Calcium 8.4 8.5 8.4 Hematology 08/20/24 08/21/24 08/22/24 01:47 06:38 06:02 WBC 7.4 5.8 5.7 Hgb 10.3 L D 10.9 L 10.0 L Plt Count 221 D 233 214 Assessment and Plan (1) Uncontrolled hypertension: Status: Acute (2) CKD (chronic kidney disease): Status: Acute Plan Zi has resistant hypertension setting of significant renal artery stenosis status post bilateral stent placement. He has progressive loss of renal function due to ischemic nephropathy. At present no signs or symptoms of uremia or fluid overload. No indication for dialysis yet. He is approaching end stage renal disease. Blood pressure initially elevated. However blood pressure is better controlled today. The goal at this point is to maintain systolic blood pressure between 140 and 160 mm Hg. I have reviewed all the medications. If needed we can increase hydralazine to achieve this target. Avoid rapidly active intravenous antihypertensive agents. I will follow along with the team Procedures Date of Service Date of Service: 08/22/24
[2024-08-22] MEDS: oxyCODONE HCl Immed Release 5 MG TABLET PO ×2 (12:15→22:41)
--- NOTE | 2024-08-22 13:33 | HO.PM.IMPN ---
Subjective Subjective Date of Service: 08/22/24 Interval History: Continues to feel poorly. No acute issues overnight Review of Systems Denies chest pain Admits shortness of breath Denies nausea vomiting diarrhea Denies fever chills Physical Exam Vital Signs: Vital Signs: Last Vital Signs Temp 97.3 F 08/22/24 11:36 Pulse 78 08/22/24 11:36 Resp 20 08/22/24 11:36 BP 144/80 H 08/22/24 11:36 Pulse Ox 90 L 08/22/24 11:36 O2 Del Method Nasal Cannula 08/22/24 11:36 O2 Flow Rate 1 08/22/24 11:36 BMI result Body Mass Index 19.4 Const: Other: Awake alert; slow to respond. Ill-appearing. HEENT: Other: Membranes dry Resp: Other: Diminished at bases left greater than right with scant expiratory wheezes Cardio: Other: No S4; positive S1-S2; no S3 murmurs rubs or gallops GI: Other: Soft nontender nondistended normoactive bowel sounds Neuro: Other: Cranial nerves 2-12 grossly intact as tested. Motor is 5/5 all extremities. Sensation is intact. Gait not observed Extrem: Other: No edema bilaterally Objective Data Active Medications Acetaminophen (Acetaminophen 325 Mg Tablet) 650 mg PO Q6H PRN PRN Reason: Pain, Mild 1-3,fever,headache Last Admin: 08/21/24 17:52 Dose: 650 mg Documented By: YANG Albuterol/Ipratropium (Albuterol/Iprat 2.5/0.5mg 3 Ml Ampul.Neb) 3 ml INHALE RQ4H WHILE AWAKE PRN PRN Reason: Wheezing Aspirin (Aspirin Enteric Coated 81 Mg Tablet.) 81 mg PO DAILY@0600 [facility] Last Admin: 08/22/24 05:37 Dose: 81 mg Documented By: SITA Calcium Carbonate (Calcium Carbonate 750 Mg Tab.Chew) 750 mg PO Q4H PRN PRN Reason: Heartburn Ceftriaxone Sodium (Ceftriaxone Sodium 1 Gm Vial) 1 gm IVPUSH Q24H [facility] Last Admin: 08/22/24 05:37 Dose: 1 gm Documented By: SITA Clopidogrel Bisulfate (Clopidogrel Bisulfate 75 Mg Tablet) 75 mg PO DAILY [facility] Last Admin: 08/22/24 09:07 Dose: 75 mg Documented By: NJ Cyanocobalamin (Cyanocobalamin (Vitamin B-12) 500 Mcg Tablet) 500 mcg PO DAILY@1800 [facility] Last Admin: 08/21/24 14:35 Dose: Not Given Documented By: YANG Non-Admin Reason: Patient Refused Doxazosin Mesylate (Doxazosin Mesylate 2 Mg Tablet) 4 mg PO BEDTIME [facility] Last Admin: 08/21/24 19:37 Dose: 4 mg Documented By: SITA Finasteride (Finasteride 5 Mg Tablet) 5 mg PO Q2D [facility] Last Admin: 08/21/24 08:53 Dose: 5 mg Documented By: YANG Hydralazine HCl (Hydralazine Hcl 25 Mg Tablet) 75 mg PO TID [facility]; Protocol Last Admin: 08/22/24 09:04 Dose: 75 mg Documented By: NJ Azithromycin 500 mg/ Sodium (Chloride) 250 mls @ 125 mls/hr IV DAILY [facility] Last Infusion: 08/22/24 11:50 Dose: Infused Documented By: CHARLA Magnesium Hydroxide (Milk Of Magnesia 30 Ml Oral.Susp) 30 ml PO DAILY PRN PRN Reason: Constipation Last Admin: 08/22/24 09:07 Dose: 30 ml Documented By: NJ Melatonin (Melatonin 3 Mg Tablet) 6 mg PO BEDTIME PRN PRN Reason: Insomnia Metoprolol Succinate (Metoprolol Succinate Er 100 Mg Tab.Er.24h) 100 mg PO DAILY [facility]; Protocol Last Admin: 08/22/24 09:06 Dose: 100 mg Documented By: NJ Nifedipine (Nifedipine Er 60 Mg Tab.Er.24) 120 mg PO DAILY [facility]; Protocol Last Admin: 08/22/24 09:06 Dose: 120 mg Documented By: NJ Ondansetron HCl (Ondansetron Hcl 4 Mg/2 Ml Vial) 4 mg IVPUSH Q8H PRN PRN Reason: Nausea and Vomiting Last Admin: 08/21/24 17:46 Dose: 4 mg Documented By: YANG Oxycodone HCl (Oxycodone Hcl Immed Release 5 Mg Tablet) 5 mg PO Q6H PRN PRN Reason: Pain, Moderate(Pain Scale 4-6) Last Admin: 08/22/24 12:15 Dose: 5 mg Documented By: CHARLA Sodium Chloride (0.9 % Sodium Chloride Flush 3 Ml Syringe) 3 ml IVFLUSH QSHIFT [facility] Last Admin: 08/22/24 09:09 Dose: 3 ml Documented By: NJ Spironolactone (Spironolactone 25 Mg Tablet) 50 mg PO DAILY [facility]; Protocol Last Admin: 08/22/24 09:05 Dose: 50 mg Documented By: NJ Labs 08/22/24 06:02 08/22/24 06:02 Labs: Laboratory Results - last 24 hr 08/22/24 06:02 MCV 89.7 MCH 29.4 MCHC 32.8 RDW 15.1 Plt Count 214 MPV 10.3 Immature Gran % (Auto) 0.5 H Neut % (Auto) 70.7 Lymph % (Auto) 14.4 L [place] % (Auto) 10.4 Eos % (Auto) 3.5 Baso % (Auto) 0.5 Lymph # (Auto) 0.8 L [place] # (Auto) 0.6 Eos # (Auto) 0.2 Baso # (Auto) 0.0 Abs Immat Gran (auto) 0.03 Absolute Neuts (auto) 4.0 Absolute Nucleated RBC 0.000 Nucleated RBC % (auto) 0.0 Anion Gap 15 Estim Creat Clear Calc 12.3 Estimated GFR 11 Random Glucose 110 Calcium 8.4 Magnesium 2.1 Total Bilirubin 0.2 AST 15 ALT 14 Alkaline Phosphatase 94 Total Protein 6.0 L Albumin 3.2 L Assessment and Plan (1) Uncontrolled hypertension: Status: Acute (2) New onset of congestive heart failure: Status: Acute Plan 69-year-old male with known history of peripheral artery disease, CAD, COPD and chronic tobacco abuse presents with worsening shortness of breath over several months for along with unintentional weight loss. Workup in the emergency room consistent for likely pulmonary edema with bilateral pleural effusions. 1.Acute CHF -aggressive diuresis with Bumex..good results -2D echo reviewed by Cardiology - 2. CKD 3B -continue outpatient therapies (appears at baseline) -renal consult appreciated -follow renals/divalents 3. Hypertension -continue outpatient therapies -increase hydralazine to 75 t.i.d. -adjust therapies based on clinical response (got all home meds earlier this a.m.) 4. Bilateral pleural effusion (in backdrop of 30 lb unintentional weight loss) -suspicious for malignancy -diagnostic thoracentesis by Interventional Radiology today -further plans based on forthcoming data 5. Peripheral artery disease -continue Plavix/aspirin Full code Heparin Patient will require 2 midnights going forward of inpatient stay to aggressively treat acute CHF and evaluate new pleural effusions in the backdrop of chronic tobacco abuse. This can not be achieved a lesser acute setting Quality Stroke Does the patient have a stroke diagnosis?: No VTE Prior VTE?: No VTE Risk Level:: Medical - moderate - high VTE Device Contraindication: Treatment Not Indicated VTE Drug Contraindication: N/A - Med Ordered
--- NOTE | 2024-08-22 14:40 | HO.WOUND ---
Wound Consult: Attempted Attempted wound consult assessment of Left great toe but arrival to unit patient was off unit at procedure - will attempt assessment at future date and time.
[2024-08-22] MEDS: Lidocaine HCl 1 % MPF 5 ML VIAL SUBCUT (15:01)
--- NOTE | 2024-08-22 15:13 | PM.PROC ---
Brief Operative Note Date of procedure: 08/22/24 Pre-op diagnosis: Left pleural effusion Post-op diagnosis: same Procedure: US Left thoracentesis 1.0L serous fluid removed and sent for requested analysis. No immediate complications.
[2024-08-22 15:29] LABS: MN% 93.3 %; PMN% 6.7 %; WBC Pleural Fluid 0.211 X10*3/uL
[2024-08-22 15:48] LABS: RBC Pleural Fluid < 0.002 X10*6/uL
[2024-08-22 17:08] LABS: BF Shift QC OK YES; Neutrophils Pleural Fluid 8 %
[2024-08-22 17:09] LABS: Lymphocytes Pleural Fluid 51 %; Monocytes Pleural Fluid 12 %; Other Cells Plerual Fl 29 %
[2024-08-22] MEDS: Cyanocobalamin (Vitamin B-12) 500 MCG TABLET PO (18:36)
[2024-08-22] MEDS: Doxazosin Mesylate 2 MG TABLET 4 MG PO (22:42)
[2024-08-23] VITALS (7 sets, daily range): BP systolic 152–185; BP diastolic 70–80; PULSE 74–85; RESP 16–20; TEMP 36.3–37.4; O2SAT 92–94; BMI 21.3
[2024-08-23] MEDS: Aspirin Enteric Coated 81 MG TABLET.DR PO (05:48)
[2024-08-23] MEDS: cefTRIAXone sodium 1 GM VIAL IVPUSH (05:48)
[2024-08-23 08:00] LABS: MANUAL DIFF FLAG NO
[2024-08-23 08:12] LABS: Basophils Percent Auto 0.3 % (0-2); Eosinophils Absolute Auto 0.3 X10*3/uL (0.0-0.4); Eosinophils Percent Auto 4.4 % (0-4); Hemoglobin 10.3 g/dl (14.0-18.0); Imm Gran Abs Auto 0.04 X10*3/uL (0.00-0.03); Imm Gran Pct Auto 0.7 % (0.0-0.4); Lymphocytes Absolute Auto 0.5 X10*3/uL (1.2-4.9); Mean Corpuscular HGB Conc 33.2 g/dl (31.0-36.0); Mean Corpuscular Hemoglobin 29.9 pg (27.0-33.0); Mean Corpuscular Volume 89.9 fL (80.0-98.0); Mean Platelet Volume 9.9 fL (9.4-12.4); Monocytes Absolute Auto 0.6 X10*3/uL (0.1-1.2); Monocytes Percent Auto 9.5 % (2-11); Neutrophils Absolute Auto 4.5 x10*3/uL (2.0-8.3); Neutrophils Percent Auto 76.1 % (45-73); Platelet Count 206 X10*3/uL (160-400); Red Blood Count 3.45 X10*6/uL (4.60-5.80); Red Cell Distribution Width 15.1 % (11.0-16.0); White Blood Count 5.9 X10*3/uL (4.8-10.8)
[2024-08-23 08:46] LABS: Alanine Aminotransferase 9 U/L (0-40); Albumin Level 3.1 g/dL (3.5-5.0); Alkaline Phosphatase 87 U/L (39-117); Anion Gap 15 (12-20); Aspartate Amino Transferase 15 U/L (5-37); Bilirubin Total 0.2 mg/dL (0.0-1.0); Blood Urea Nitrogen 63 mg/dL (9-16); Calcium 8.2 mg/dL (8.4-10.2); Carbon Dioxide 19 mmol/L (22-29); Chloride 104 mmol/L (96-108); Creatinine Clr Calc Pharmacy 13.1; Estimated Glomerular Filt Rate 11; Glucose Random 100 mg/dL (60-115); Magnesium 2.3 mg/dL (1.6-2.6); Sodium 134 mmol/L (135-145); Total Protein 5.8 g/dL (6.5-8.0)
--- NOTE | 2024-08-23 09:23 | HO.WOUND ---
Wound Consult: Initial 69yr old?[place] [facility] [place] - See progress notes and H&P for detailed history.? Wound consult placed for Left Great Toe.? Patient agreeable to assessment and photo documentation.?Patient is known to have PVD and has followed with Dr. Veras. Recommend Vascular follow up TT to / [facility]. Left Great Toe Left Plantar Foot Right Foot Etiology: ??PVD Wound Bed: scattered areas or intact blue purple pigmentation noted - no open wounds noted Edges: ? irregular [place] wound: ?intact +PP, denies neuropathy, No Induration, Fluctuance noted Pain: Pain noted to Left great toe noted Goals of Treatment: ? No topical interventions needed - defer to Vascular team
[2024-08-23] MEDS: hydrALAZINE HCl 25 MG TABLET 75 MG PO ×3 (09:55→20:10)
[2024-08-23] MEDS: Azithromycin 500 MG in 0.9 % Sodium Chloride 250 ML 125 MG IV (09:56)
[2024-08-23] MEDS: Spironolactone 25 MG TABLET 50 MG PO (09:56)
[2024-08-23] MEDS: Metoprolol Succinate ER 100 MG TAB.ER.24H PO (09:56)
[2024-08-23] MEDS: NIFEdipine ER 60 MG TAB.ER.24 120 MG PO (09:56)
[2024-08-23] MEDS: Clopidogrel Bisulfate 75 MG TABLET PO (09:56)
[2024-08-23] MEDS: 0.9 % Sodium Chloride Flush 3 ML SYRINGE IVFLUSH ×3 (10:07→20:11)
--- NOTE | 2024-08-23 11:15 | P.PNIM_ITS ---
Subjective Subjective Date of Service: 08/23/24 Interval History: No acute events overnight. Creatinine continues to decline Review of Systems Denies chest pain Admits shortness of breath Denies nausea vomiting diarrhea Denies fever chills Physical Exam 2 Vital Signs: Vital Signs: Last Vital Signs Temp 99.3 F 08/23/24 07:16 Pulse 85 08/23/24 09:56 Resp 18 08/23/24 07:16 BP 152/78 H 08/23/24 09:56 Pulse Ox 94 08/23/24 07:16 O2 Del Method Oxymask 08/23/24 07:16 O2 Flow Rate 6 08/23/24 07:16 BMI result Body Mass Index 21.3 Const: Other: Awake alert; slow to respond. Ill-appearing. HEENT: Other: Membranes dry Resp: Other: Diminished at bases left greater than right with scant expiratory wheezes Cardio: Other: No S4; positive S1-S2; no S3 murmurs rubs or gallops GI: Other: Soft nontender nondistended normoactive bowel sounds Neuro: Other: Cranial nerves 2-12 grossly intact as tested. Motor is 5/5 all extremities. Sensation is intact. Gait not observed Extrem: Other: No edema bilaterally Objective Data Active Medications Acetaminophen (Acetaminophen 325 Mg Tablet) 650 mg PO Q6H PRN PRN Reason: Pain, Mild 1-3,fever,headache Last Admin: 08/21/24 17:52 Dose: 650 mg Documented By: YANG Albuterol/Ipratropium (Albuterol/Iprat 2.5/0.5mg 3 Ml Ampul.Neb) 3 ml INHALE RQ4H WHILE AWAKE PRN PRN Reason: Wheezing Aspirin (Aspirin Enteric Coated 81 Mg Tablet.) 81 mg PO DAILY@0600 [facility] Last Admin: 08/23/24 05:48 Dose: 81 mg Documented By: ECHO Calcium Carbonate (Calcium Carbonate 750 Mg Tab.Chew) 750 mg PO Q4H PRN PRN Reason: Heartburn Ceftriaxone Sodium (Ceftriaxone Sodium 1 Gm Vial) 1 gm IVPUSH Q24H [facility] Last Admin: 08/23/24 05:48 Dose: 1 gm Documented By: ECHO Clopidogrel Bisulfate (Clopidogrel Bisulfate 75 Mg Tablet) 75 mg PO DAILY [facility] Last Admin: 08/23/24 09:56 Dose: 75 mg Documented By: CATRACHITA Cyanocobalamin (Cyanocobalamin (Vitamin B-12) 500 Mcg Tablet) 500 mcg PO DAILY@1800 [facility] Last Admin: 08/22/24 18:36 Dose: 500 mcg Documented By: CHARLA Doxazosin Mesylate (Doxazosin Mesylate 2 Mg Tablet) 4 mg PO BEDTIME [facility] Last Admin: 08/22/24 22:42 Dose: 4 mg Documented By: ECHO Finasteride (Finasteride 5 Mg Tablet) 5 mg PO Q2D [facility] Last Admin: 08/21/24 08:53 Dose: 5 mg Documented By: YANG Hydralazine HCl (Hydralazine Hcl 25 Mg Tablet) 75 mg PO TID [facility]; Protocol Last Admin: 08/23/24 09:55 Dose: 75 mg Documented By: CATRACHITA Azithromycin 500 mg/ Sodium (Chloride) 250 mls @ 125 mls/hr IV DAILY [facility] Last Admin: 08/23/24 09:56 Dose: 125 mls/hr Documented By: CATRACHITA Magnesium Hydroxide (Milk Of Magnesia 30 Ml Oral.Susp) 30 ml PO DAILY PRN PRN Reason: Constipation Last Admin: 08/22/24 09:07 Dose: 30 ml Documented By: NJ Melatonin (Melatonin 3 Mg Tablet) 6 mg PO BEDTIME PRN PRN Reason: Insomnia Metoprolol Succinate (Metoprolol Succinate Er 100 Mg Tab.Er.24h) 100 mg PO DAILY [facility]; Protocol Last Admin: 08/23/24 09:56 Dose: 100 mg Documented By: CATRACHITA Nifedipine (Nifedipine Er 60 Mg Tab.Er.24) 120 mg PO DAILY [facility]; Protocol Last Admin: 08/23/24 09:56 Dose: 120 mg Documented By: CATRACHITA Ondansetron HCl (Ondansetron Hcl 4 Mg/2 Ml Vial) 4 mg IVPUSH Q8H PRN PRN Reason: Nausea and Vomiting Last Admin: 08/21/24 17:46 Dose: 4 mg Documented By: YANG Oxycodone HCl (Oxycodone Hcl Immed Release 5 Mg Tablet) 5 mg PO Q6H PRN PRN Reason: Pain, Moderate(Pain Scale 4-6) Last Admin: 01/27/25 22:41 Dose: 5 mg Documented By: ECHO Sodium Chloride (0.9 % Sodium Chloride Flush 3 Ml Syringe) 3 ml IVFLUSH QSHIFT [facility] Last Admin: 08/23/24 10:07 Dose: 3 ml Documented By: CATRACHITA Spironolactone (Spironolactone 25 Mg Tablet) 50 mg PO DAILY [facility]; Protocol Last Admin: 08/23/24 09:56 Dose: 50 mg Documented By: CATRACHITA Labs 08/23/24 07:10 08/23/24 07:10 Labs: Laboratory Results - last 24 hr 08/22/24 08/23/24 14:25 07:10 MCV 89.9 MCH 29.9 MCHC 33.2 RDW 15.1 Plt Count 206 MPV 9.9 Immature Gran % (Auto) 0.7 H Neut % (Auto) 76.1 H Lymph % (Auto) 9.0 L [place] % (Auto) 9.5 Eos % (Auto) 4.4 H Baso % (Auto) 0.3 Lymph # (Auto) 0.5 L [place] # (Auto) 0.6 Eos # (Auto) 0.3 Baso # (Auto) 0.0 Abs Immat Gran (auto) 0.04 H Absolute Neuts (auto) 4.5 Absolute Nucleated RBC 0.000 Nucleated RBC % (auto) 0.0 Anion Gap 15 Estim Creat Clear Calc 13.1 Estimated GFR 11 Random Glucose 100 Calcium 8.2 L Magnesium 2.3 Total Bilirubin 0.2 AST 15 ALT 9 Alkaline Phosphatase 87 Total Protein 5.8 L Albumin 3.1 L Pleural WBC 0.211 Pleural RBC < 0.002 Pleural Neutrophils 8 Pleural Lymphocytes 51 Pleural Monocytes 12 Pleural Other Cells 29 Microbiology Microbiology Results: Microbiology 08/22/24 14:25 Gram Stain - Final Thoracentesis Fluid Anaerobic Culture - Preliminary No growth to date. Body Fluid Culture - Preliminary No growth to date. Assessment and Plan (1) New onset of congestive heart failure: Status: Acute (2) Uncontrolled hypertension: Status: Acute Plan 69-year-old male with known history of peripheral artery disease, CAD, COPD and chronic tobacco abuse presents with worsening shortness of breath over several months for along with unintentional weight loss. Workup in the emergency room consistent for likely pulmonary edema with bilateral pleural effusions. 1.Acute CHF -aggressive diuresis with Bumex..good results -2D echo reviewed by Cardiology - 2. CKD 3B -continue outpatient therapies (appears at baseline) -renal consult appreciated -follow renals/divalents 3. Hypertension -continue outpatient therapies -increase hydralazine to 75 t.i.d... Goal blood pressure 140 through 160 -adjust therapies based on clinical response (got all home meds earlier this a.m.) 4. Bilateral pleural effusion (in backdrop of 30 lb unintentional weight loss) -suspicious for malignancy.. Await pathology -diagnostic thoracentesis by Interventional Radiology today -further plans based on forthcoming data 5. Peripheral artery disease -continue Plavix/aspirin Full code Heparin Patient will require inpatient stay to aggressively treat acute CHF and evaluate new pleural effusions in the backdrop of chronic tobacco abuse. This can not be achieved a lesser acute setting Quality Stroke Does the patient have a stroke diagnosis?: No VTE Prior VTE?: No VTE Risk Level:: Medical - moderate - high VTE Device Contraindication: Treatment Not Indicated VTE Drug Contraindication: N/A - Med Ordered
--- NOTE | 2024-08-23 13:57 | PM.PNNEP ---
Subjective Subjective Date of Service: 08/23/24 Principal diagnosis: Elevated BNP, uncontrolled blood pressure. Interval history: Somewhat frustrated. Creatinine continues to increase. No nausea or vomiting He was diuresed to Physical Exam Vital Signs: Vital Signs: Last Vital Signs Temp 98.7 F 08/23/24 11:24 Pulse 76 08/23/24 11:24 Resp 18 08/23/24 11:24 BP 156/80 H 08/23/24 11:24 Pulse Ox 92 08/23/24 11:24 O2 Del Method Oxymask 08/23/24 11:24 O2 Flow Rate 6 08/23/24 11:24 BMI result Body Mass Index 21.3 Const: General: ill appearing Neck: Neck: Yes supple Resp: Auscultation: rhonchi Cardio: Palpation: no palpable S3 Heart sounds: no rubs GI: Palpation (GI): Soft to palpation Auscultation: normal bowel sounds Neuro: Motor exam (neuro): no asterixis Objective Data Labs 08/24/24 05:58 08/24/24 05:58 Labs: Laboratory Results - last 24 hr 08/22/24 08/23/24 14:25 07:10 WBC 5.9 RBC 3.45 L Hgb 10.3 L Hct 31.0 L MCV 89.9 MCH 29.9 MCHC 33.2 RDW 15.1 Plt Count 206 MPV 9.9 Immature Gran % (Auto) 0.7 H Neut % (Auto) 76.1 H Lymph % (Auto) 9.0 L [place] % (Auto) 9.5 Eos % (Auto) 4.4 H Baso % (Auto) 0.3 Lymph # (Auto) 0.5 L [place] # (Auto) 0.6 Eos # (Auto) 0.3 Baso # (Auto) 0.0 Abs Immat Gran (auto) 0.04 H Absolute Neuts (auto) 4.5 Absolute Nucleated RBC 0.000 Nucleated RBC % (auto) 0.0 Sodium 134 L Potassium 4.0 Chloride 104 Carbon Dioxide 19 L Anion Gap 15 BUN 63 H Creatinine 5.42 H* Estim Creat Clear Calc 13.1 Estimated GFR 11 Random Glucose 100 Calcium 8.2 L Magnesium 2.3 Total Bilirubin 0.2 AST 15 ALT 9 Alkaline Phosphatase 87 Total Protein 5.8 L Albumin 3.1 L Pleural WBC 0.211 Pleural RBC < 0.002 Pleural Neutrophils 8 Pleural Lymphocytes 51 Pleural Monocytes 12 Pleural Other Cells 29 Microbiology Microbiology Results: Microbiology 08/22/24 14:25 Thoracentesis Fluid Gram Stain - Final 08/22/24 14:25 Thoracentesis Fluid Anaerobic Culture - Preliminary No growth to date. 08/22/24 14:25 Thoracentesis Fluid Body Fluid Culture - Preliminary No growth to date. Procedures Date of Service Date of Service: 08/24/24 Assessment & Plan Assessment and plan (1) Uncontrolled hypertension: Status: Acute (2) CKD (chronic kidney disease): Status: Acute Plan Zi has resistant hypertension setting of significant renal artery stenosis status post bilateral stent placement. He has progressive loss of renal function due to ischemic nephropathy. At present no signs or symptoms of uremia or fluid overload. No indication for dialysis yet. He is approaching end stage renal disease. Blood pressure initially elevated. However blood pressure is better controlled The goal at this point is to maintain systolic blood pressure between 140 and 160 mm Hg. I have reviewed all the medications. If needed we can increase hydralazine to achieve this target. Avoid rapidly active intravenous antihypertensive agents. Time Spent With Patient Time: Total time managing care of this patient today ____ minutes. Progress Note: Quality Stroke Does the patient have a stroke diagnosis?: No
[2024-08-23 14:45] LABS: pH Pleural Fluid 7.53
[2024-08-23 14:46] LABS: Albumin Pleural Fluid 0.9
[2024-08-23 14:47] LABS: Amylase Pleural Fluid 32; Glucose Pleural Fluid 124; LDH Pleural Fluid 75; Total Protein Pleural Fluid 1.2
[2024-08-23] MEDS: Cyanocobalamin (Vitamin B-12) 500 MCG TABLET PO (16:50)
[2024-08-23] MEDS: oxyCODONE HCl Immed Release 5 MG TABLET PO (20:10)
[2024-08-23] MEDS: Doxazosin Mesylate 2 MG TABLET 4 MG PO (20:11)
[2024-08-24] VITALS (11 sets, daily range): BP systolic 109–174; BP diastolic 7–90; PULSE 61–89; RESP 17–20; TEMP 36.6–37.6; O2SAT 86–93
[2024-08-24] MEDS: cefTRIAXone sodium 1 GM VIAL IVPUSH (05:38)
[2024-08-24] MEDS: Aspirin Enteric Coated 81 MG TABLET.DR PO (05:38)
[2024-08-24 06:38] LABS: MANUAL DIFF FLAG NO
[2024-08-24 06:47] LABS: Basophils Percent Auto 0.4 % (0-2); Eosinophils Absolute Auto 0.3 X10*3/uL (0.0-0.4); Eosinophils Percent Auto 3.6 % (0-4); Hematocrit 31.3 % (42.0-52.0); Hemoglobin 10.1 g/dl (14.0-18.0); Imm Gran Abs Auto 0.05 X10*3/uL (0.00-0.03); Imm Gran Pct Auto 0.7 % (0.0-0.4); Lymphocytes Absolute Auto 0.7 X10*3/uL (1.2-4.9); Lymphocytes Percent Auto 9.7 % (20-40); Mean Corpuscular HGB Conc 32.3 g/dl (31.0-36.0); Mean Corpuscular Hemoglobin 29.2 pg (27.0-33.0); Mean Corpuscular Volume 90.5 fL (80.0-98.0); Mean Platelet Volume 10.1 fL (9.4-12.4); Monocytes Absolute Auto 0.7 X10*3/uL (0.1-1.2); Monocytes Percent Auto 9.5 % (2-11); Neutrophils Absolute Auto 5.3 x10*3/uL (2.0-8.3); Neutrophils Percent Auto 76.1 % (45-73); Platelet Count 206 X10*3/uL (160-400); Red Blood Count 3.46 X10*6/uL (4.60-5.80); Red Cell Distribution Width 14.8 % (11.0-16.0); White Blood Count 6.9 X10*3/uL (4.8-10.8)
[2024-08-24 07:03] LABS: Alanine Aminotransferase 8 U/L (0-40); Albumin Level 3.2 g/dL (3.5-5.0); Alkaline Phosphatase 90 U/L (39-117); Anion Gap 15 (12-20); Aspartate Amino Transferase 16 U/L (5-37); Bilirubin Total 0.2 mg/dL (0.0-1.0); Blood Urea Nitrogen 65 mg/dL (9-16); Calcium 8.2 mg/dL (8.4-10.2); Carbon Dioxide 18 mmol/L (22-29); Chloride 104 mmol/L (96-108); Creatinine Clr Calc Pharmacy 12.7; Estimated Glomerular Filt Rate 10; Glucose Fasting 106 mg/dL (60-99); Potassium 4.2 mmol/L (3.3-5.1); Sodium 133 mmol/L (135-145)
[2024-08-24] MEDS: Azithromycin 500 MG in 0.9 % Sodium Chloride 250 ML 125 MG IV (09:27)
[2024-08-24] MEDS: Spironolactone 25 MG TABLET 50 MG PO (09:33)
[2024-08-24] MEDS: Metoprolol Succinate ER 100 MG TAB.ER.24H PO (09:33)
[2024-08-24] MEDS: hydrALAZINE HCl 25 MG TABLET 75 MG PO (09:33)
[2024-08-24] MEDS: NIFEdipine ER 60 MG TAB.ER.24 120 MG PO (09:34)
[2024-08-24] MEDS: 0.9 % Sodium Chloride Flush 3 ML SYRINGE IVFLUSH ×3 (09:34→23:58)
[2024-08-24] MEDS: Clopidogrel Bisulfate 75 MG TABLET PO (09:34)
[2024-08-24] MEDS: Milk of Magnesia 30 ML ORAL.SUSP PO (09:39)
--- NOTE | 2024-08-24 10:22 | MHC.CM.PN ---
Per ROUNDS discussion, Patient is not yet medically cleared for dc (pending Nephrology/? start new HD); patient may benefit from a PT Eval to assist with disposition and CM will follow.
--- NOTE | 2024-08-24 11:20 | HO.PM.IMPN ---
Subjective Subjective Date of Service: 08/24/24 Interval History: seen and examined this AM feeling frustrated no new complaints Review of Systems Negative except HPI/interval history. Physical Exam Vital Signs: Vital Signs: Last Vital Signs Temp 98.1 F 08/24/24 11:01 Pulse 74 08/24/24 11:01 Resp 18 08/24/24 07:06 BP 170/80 H 08/24/24 11:01 Pulse Ox 93 08/24/24 11:01 O2 Del Method Nasal Cannula 08/24/24 11:01 O2 Flow Rate 2 08/24/24 11:01 BMI result Body Mass Index 21.3 Const: Other: chronically ill appearing s1s2 lungs dim LUE edema noted AAOx3 Objective Data Active Medications Acetaminophen (Acetaminophen 325 Mg Tablet) 650 mg PO Q6H PRN PRN Reason: Pain, Mild 1-3,fever,headache Last Admin: 08/21/24 17:52 Dose: 650 mg Documented By: YANG Albuterol/Ipratropium (Albuterol/Iprat 2.5/0.5mg 3 Ml Ampul.Neb) 3 ml INHALE RQ4H WHILE AWAKE PRN PRN Reason: Wheezing Aspirin (Aspirin Enteric Coated 81 Mg Tablet.) 81 mg PO DAILY@0600 [facility] Last Admin: 08/24/24 05:38 Dose: 81 mg Documented By: SITA Calcium Carbonate (Calcium Carbonate 750 Mg Tab.Chew) 750 mg PO Q4H PRN PRN Reason: Heartburn Ceftriaxone Sodium (Ceftriaxone Sodium 1 Gm Vial) 1 gm IVPUSH Q24H [facility] Last Admin: 08/24/24 05:38 Dose: 1 gm Documented By: SITA Clopidogrel Bisulfate (Clopidogrel Bisulfate 75 Mg Tablet) 75 mg PO DAILY [facility] Last Admin: 08/24/24 09:34 Dose: 75 mg Documented By: TYRA Cyanocobalamin (Cyanocobalamin (Vitamin B-12) 500 Mcg Tablet) 500 mcg PO DAILY@1800 [facility] Last Admin: 08/23/24 16:50 Dose: 500 mcg Documented By: CATRACHITA Doxazosin Mesylate (Doxazosin Mesylate 2 Mg Tablet) 4 mg PO BEDTIME [facility] Last Admin: 08/23/24 20:11 Dose: 4 mg Documented By: SITA Hydralazine HCl (Hydralazine Hcl 25 Mg Tablet) 75 mg PO TID [facility]; Protocol Last Admin: 08/24/24 09:33 Dose: 75 mg Documented By: TYRA Azithromycin 500 mg/ Sodium (Chloride) 250 mls @ 125 mls/hr IV DAILY [facility] Last Admin: 08/24/24 09:27 Dose: 125 mls/hr Documented By: TYRA Magnesium Hydroxide (Milk Of Magnesia 30 Ml Oral.Susp) 30 ml PO DAILY PRN PRN Reason: Constipation Last Admin: 08/24/24 09:39 Dose: 30 ml Documented By: TYRA Melatonin (Melatonin 3 Mg Tablet) 6 mg PO BEDTIME PRN PRN Reason: Insomnia Metoprolol Succinate (Metoprolol Succinate Er 100 Mg Tab.Er.24h) 100 mg PO DAILY [facility]; Protocol Last Admin: 08/24/24 09:33 Dose: 100 mg Documented By: TYRA Nifedipine (Nifedipine Er 60 Mg Tab.Er.24) 120 mg PO DAILY [facility]; Protocol Last Admin: 08/24/24 09:34 Dose: 120 mg Documented By: TYRA Ondansetron HCl (Ondansetron Hcl 4 Mg/2 Ml Vial) 4 mg IVPUSH Q8H PRN PRN Reason: Nausea and Vomiting Last Admin: 08/21/24 17:46 Dose: 4 mg Documented By: ANA-RIVROSETTE Oxycodone HCl (Oxycodone Hcl Immed Release 5 Mg Tablet) 5 mg PO Q6H PRN PRN Reason: Pain, Moderate(Pain Scale 4-6) Last Admin: 08/23/24 20:10 Dose: 5 mg Documented By: SITA Sodium Chloride (0.9 % Sodium Chloride Flush 3 Ml Syringe) 3 ml IVFLUSH QSHIFT [facility] Last Admin: 08/24/24 09:34 Dose: 3 ml Documented By: TYRA Spironolactone (Spironolactone 25 Mg Tablet) 50 mg PO DAILY [facility]; Protocol Last Admin: 08/24/24 09:33 Dose: 50 mg Documented By: TYRA Labs 08/24/24 05:58 08/24/24 05:58 Labs: Laboratory Results - last 24 hr 08/22/24 08/24/24 14:25 05:58 MCV 90.5 MCH 29.2 MCHC 32.3 RDW 14.8 Plt Count 206 MPV 10.1 Immature Gran % (Auto) 0.7 H Neut % (Auto) 76.1 H Lymph % (Auto) 9.7 L [place] % (Auto) 9.5 Eos % (Auto) 3.6 Baso % (Auto) 0.4 Lymph # (Auto) 0.7 L [place] # (Auto) 0.7 Eos # (Auto) 0.3 Baso # (Auto) 0.0 Abs Immat Gran (auto) 0.05 H Absolute Neuts (auto) 5.3 Absolute Nucleated RBC 0.000 Nucleated RBC % (auto) 0.0 Anion Gap 15 Estim Creat Clear Calc 12.7 Estimated GFR 10 Fasting Glucose 106 H Calcium 8.2 L Total Bilirubin 0.2 AST 16 ALT 8 Alkaline Phosphatase 90 Total Protein 6.0 L Albumin 3.2 L Pleural pH 7.53 Pleural Total Protein 1.2 Pleural Albumin 0.9 Pleural LDH 75 Pleural Glucose 124 Pleural Amylase 32 Microbiology Microbiology Results: Microbiology 08/22/24 14:25 Gram Stain - Final Thoracentesis Fluid Anaerobic Culture - Preliminary No growth to date. Body Fluid Culture - Final No growth after 2 days Assessment and Plan (1) Uncontrolled hypertension: Status: Acute Plan 69 yo M with PAD, CAD, COPD who presented with SOB and was admitted on acute CHF and ROSAURA/CKD 1. New onset CHF s/p IV bumex with resultant increase in SCr now diuretics on hold Cardiology input appreciated 2. ROSAURA on CKD progressively worsening nephrology on board -- will follow their recs 3. HTN uncontrolled despite metoprolol xl 100, nifedipine 120, aldactone 50, doxazon 4, hydralazine 75 TID will increase hydralzine to 100mg tid nephrology helping with mgmt 4. LUE swelling question related to blood draw/IV no DVT seen on imaging 5. B/l pleural effusion s/p thora -- sent for path 6. PAD DAPT / statin DVT pptx, subcut heparin Quality Stroke Does the patient have a stroke diagnosis?: No VTE Prior VTE?: No VTE Risk Level:: Medical - moderate - high VTE Device Contraindication: Treatment Not Indicated VTE Drug Contraindication: N/A - Med Ordered
[2024-08-24] MEDS: hydrALAZINE HCl 50 MG TABLET 100 MG PO ×2 (14:40→19:58)
[2024-08-24] MEDS: Heparin Sodium,Porcine 5,000 UNIT/ML VIAL 5000 UNIT SUBCUT ×2 (14:41→23:58)
[2024-08-24] MEDS: Cyanocobalamin (Vitamin B-12) 500 MCG TABLET PO (17:40)
[2024-08-24] MEDS: Doxazosin Mesylate 2 MG TABLET 4 MG PO (19:58)
[2024-08-24] MEDS: oxyCODONE HCl Immed Release 5 MG TABLET PO (19:58)
--- NOTE | 2024-08-24 22:14 | P.PNNP_ITS ---
Subjective Subjective Date of Service: 08/24/24 Principal diagnosis: Elevated BNP, uncontrolled blood pressure. Interval history: seen and examined this AM feeling frustrated no new complaints Physical Exam 2 Vital Signs: Vital Signs: Last Vital Signs Temp 97.9 F 08/24/24 19:35 Pulse 83 08/24/24 19:35 Resp 20 08/24/24 19:35 BP 142/80 H 08/24/24 19:35 Pulse Ox 90 L 08/24/24 19:35 O2 Del Method Oxymask 08/24/24 19:35 O2 Flow Rate 5 08/24/24 19:35 BMI result Body Mass Index 21.3 Objective Data Labs 08/25/24 06:30 08/25/24 06:30 Labs: Laboratory Results - last 24 hr 08/24/24 05:58 WBC 6.9 RBC 3.46 L Hgb 10.1 L Hct 31.3 L MCV 90.5 MCH 29.2 MCHC 32.3 RDW 14.8 Plt Count 206 MPV 10.1 Immature Gran % (Auto) 0.7 H Neut % (Auto) 76.1 H Lymph % (Auto) 9.7 L [place] % (Auto) 9.5 Eos % (Auto) 3.6 Baso % (Auto) 0.4 Lymph # (Auto) 0.7 L [place] # (Auto) 0.7 Eos # (Auto) 0.3 Baso # (Auto) 0.0 Abs Immat Gran (auto) 0.05 H Absolute Neuts (auto) 5.3 Absolute Nucleated RBC 0.000 Nucleated RBC % (auto) 0.0 Sodium 133 L Potassium 4.2 Chloride 104 Carbon Dioxide 18 L Anion Gap 15 BUN 65 H Creatinine 5.58 H* Estim Creat Clear Calc 12.7 Estimated GFR 10 Fasting Glucose 106 H Calcium 8.2 L Total Bilirubin 0.2 AST 16 ALT 8 Alkaline Phosphatase 90 Total Protein 6.0 L Albumin 3.2 L Microbiology Microbiology Results: Microbiology 08/22/24 14:25 Thoracentesis Fluid Gram Stain - Final 08/22/24 14:25 Thoracentesis Fluid Anaerobic Culture - Preliminary No growth to date. 08/22/24 14:25 Thoracentesis Fluid Body Fluid Culture - Final No growth after 2 days Procedures Date of Service Date of Service: 08/25/24 Assessment & Plan Assessment and plan (1) Uncontrolled hypertension: Status: Acute (2) CKD (chronic kidney disease): Status: Acute Plan Zi has resistant hypertension setting of significant renal artery stenosis status post bilateral stent placement. He has progressive loss of renal function due to ischemic nephropathy. At present no signs or symptoms of uremia or fluid overload. No indication for dialysis yet. He is approaching end stage renal disease. Blood pressure initially elevated. However blood pressure is better controlled The goal at this point is to maintain systolic blood pressure between 140 and 160 mm Hg. I have reviewed all the medications. Avoid rapidly active intravenous antihypertensive agents. s/p Thoracenthesis Await results Time Spent With Patient Time: Total time managing care of this patient today ____ minutes. Progress Note: Quality Stroke Does the patient have a stroke diagnosis?: No
[2024-08-25 03:40] VITALS: BP 113/78; PULSE 77; RESP 16; TEMP 37.2; O2SAT 94
[2024-08-25 06:00] VITALS: BMI 21.3
[2024-08-25] MEDS: Aspirin Enteric Coated 81 MG TABLET.DR PO (06:36)
[2024-08-25] MEDS: cefTRIAXone sodium 1 GM VIAL IVPUSH (06:44)
[2024-08-25 07:24] LABS: MANUAL DIFF FLAG NO
[2024-08-25 07:32] VITALS: BP 140/83; PULSE 76; RESP 22; TEMP 36.5; O2SAT 95
[2024-08-25 07:34] LABS: Basophils Percent Auto 0.5 % (0-2); Eosinophils Absolute Auto 0.3 X10*3/uL (0.0-0.4); Eosinophils Percent Auto 4.5 % (0-4); Hematocrit 31.5 % (42.0-52.0); Hemoglobin 10.4 g/dl (14.0-18.0); Imm Gran Abs Auto 0.04 X10*3/uL (0.00-0.03); Imm Gran Pct Auto 0.6 % (0.0-0.4); Lymphocytes Absolute Auto 0.7 X10*3/uL (1.2-4.9); Mean Corpuscular Hemoglobin 29.5 pg (27.0-33.0); Mean Corpuscular Volume 89.2 fL (80.0-98.0); Mean Platelet Volume 10.6 fL (9.4-12.4); Monocytes Absolute Auto 0.8 X10*3/uL (0.1-1.2); Monocytes Percent Auto 11.3 % (2-11); Neutrophils Absolute Auto 4.8 x10*3/uL (2.0-8.3); Neutrophils Percent Auto 72.1 % (45-73); Platelet Count 248 X10*3/uL (160-400); Red Blood Count 3.53 X10*6/uL (4.60-5.80); Red Cell Distribution Width 14.7 % (11.0-16.0); White Blood Count 6.7 X10*3/uL (4.8-10.8)
[2024-08-25] MEDS: Spironolactone 25 MG TABLET 50 MG PO (07:45)
[2024-08-25] MEDS: Azithromycin 500 MG in 0.9 % Sodium Chloride 250 ML 125 MG IV (07:45)
[2024-08-25] MEDS: Acetaminophen 325 MG TABLET 650 MG PO ×2 (07:46→13:14)
[2024-08-25] MEDS: Clopidogrel Bisulfate 75 MG TABLET PO (07:46)
[2024-08-25] MEDS: hydrALAZINE HCl 50 MG TABLET 100 MG PO (07:46)
[2024-08-25] MEDS: NIFEdipine ER 60 MG TAB.ER.24 120 MG PO (07:46)
[2024-08-25] MEDS: Metoprolol Succinate ER 100 MG TAB.ER.24H PO (07:47)
[2024-08-25] MEDS: 0.9 % Sodium Chloride Flush 3 ML SYRINGE IVFLUSH (07:47)
[2024-08-25 07:48] LABS: Alanine Aminotransferase 9 U/L (0-40); Albumin Level 3.3 g/dL (3.5-5.0); Alkaline Phosphatase 87 U/L (39-117); Anion Gap 16 (12-20); Aspartate Amino Transferase 16 U/L (5-37); Bilirubin Total 0.2 mg/dL (0.0-1.0); Blood Urea Nitrogen 65 mg/dL (9-16); Calcium 8.1 mg/dL (8.4-10.2); Carbon Dioxide 18 mmol/L (22-29); Chloride 104 mmol/L (96-108); Creatinine Clr Calc Pharmacy 13.7; Estimated Glomerular Filt Rate 11; Glucose Fasting 125 mg/dL (60-99); Potassium 4.2 mmol/L (3.3-5.1); Sodium 134 mmol/L (135-145); Total Protein 6.4 g/dL (6.5-8.0)
--- NOTE | 2024-08-25 11:10 | HO.PM.IMPN ---
Subjective Subjective Date of Service: 08/25/24 Interval History: seen and examined reports not feeling well still no bm Review of Systems Negative except HPI/interval history. Physical Exam Vital Signs: Vital Signs: Last Vital Signs Temp 97.7 F 08/25/24 07:32 Pulse 76 08/25/24 07:32 Resp 22 H 08/25/24 07:32 BP 140/83 H 08/25/24 07:32 Pulse Ox 95 08/25/24 07:32 O2 Del Method Oxymask 08/25/24 07:32 O2 Flow Rate 5 08/25/24 07:32 BMI result Body Mass Index 21.3 Const: Other: chronically ill appearing s1s2 lungs dim LUE edema noted, about the same as yesterday AAOx3 Objective Data Active Medications Acetaminophen (Acetaminophen 325 Mg Tablet) 650 mg PO Q6H PRN PRN Reason: Pain, Mild 1-3,fever,headache Last Admin: 08/25/24 07:46 Dose: 650 mg Documented By: CATRACHITA Albuterol/Ipratropium (Albuterol/Iprat 2.5/0.5mg 3 Ml Ampul.Neb) 3 ml INHALE RQ4H WHILE AWAKE PRN PRN Reason: Wheezing Aspirin (Aspirin Enteric Coated 81 Mg Tablet.Dr) 81 mg PO DAILY@0600 [facility] Last Admin: 08/25/24 06:36 Dose: 81 mg Documented By: SITA Calcium Carbonate (Calcium Carbonate 750 Mg Tab.Chew) 750 mg PO Q4H PRN PRN Reason: Heartburn Ceftriaxone Sodium (Ceftriaxone Sodium 1 Gm Vial) 1 gm IVPUSH Q24H [facility] Last Admin: 08/25/24 06:44 Dose: 1 gm Documented By: SITA Clopidogrel Bisulfate (Clopidogrel Bisulfate 75 Mg Tablet) 75 mg PO DAILY [facility] Last Admin: 08/25/24 07:46 Dose: 75 mg Documented By: CATRACHITA Cyanocobalamin (Cyanocobalamin (Vitamin B-12) 500 Mcg Tablet) 500 mcg PO DAILY@1800 [facility] Last Admin: 08/24/24 17:40 Dose: 500 mcg Documented By: CATRACHITA Doxazosin Mesylate (Doxazosin Mesylate 2 Mg Tablet) 4 mg PO BEDTIME [facility] Last Admin: 08/24/24 19:58 Dose: 4 mg Documented By: SITA Heparin Sodium (Porcine) (Heparin Sodium,Porcine 5,000 Unit/Ml Vial) 5,000 unit SUBCUT Q12H [facility] Last Admin: 08/24/24 23:58 Dose: 5,000 unit Documented By: SITA Hydralazine HCl (Hydralazine Hcl 50 Mg Tablet) 100 mg PO TID [facility]; Protocol Last Admin: 08/25/24 07:46 Dose: 100 mg Documented By: CATRACHITA Azithromycin 500 mg/ Sodium (Chloride) 250 mls @ 125 mls/hr IV DAILY [facility] Last Admin: 08/25/24 07:45 Dose: 125 mls/hr Documented By: CATRACHITA Magnesium Hydroxide (Milk Of Magnesia 30 Ml Oral.Susp) 30 ml PO DAILY PRN PRN Reason: Constipation Last Admin: 08/24/24 09:39 Dose: 30 ml Documented By: AMERICOORRFerny Melatonin (Melatonin 3 Mg Tablet) 6 mg PO BEDTIME PRN PRN Reason: Insomnia Metoprolol Succinate (Metoprolol Succinate Er 100 Mg Tab.Er.24h) 100 mg PO DAILY [facility]; Protocol Last Admin: 08/25/24 07:47 Dose: 100 mg Documented By: CATRACHITA Nifedipine (Nifedipine Er 60 Mg Tab.Er.24) 120 mg PO DAILY [facility]; Protocol Last Admin: 08/25/24 07:46 Dose: 120 mg Documented By: CATRACHITA Ondansetron HCl (Ondansetron Hcl 4 Mg/2 Ml Vial) 4 mg IVPUSH Q8H PRN PRN Reason: Nausea and Vomiting Last Admin: 08/21/24 17:46 Dose: 4 mg Documented By: YANG Sodium Chloride (0.9 % Sodium Chloride Flush 3 Ml Syringe) 3 ml IVFLUSH QSHIFT [facility] Last Admin: 08/25/24 07:47 Dose: 3 ml Documented By: CATRACHITA Spironolactone (Spironolactone 25 Mg Tablet) 50 mg PO DAILY [facility]; Protocol Last Admin: 08/25/24 07:45 Dose: 50 mg Documented By: CATRACHITA Labs 08/25/24 06:30 08/25/24 06:30 Labs: Laboratory Results - last 24 hr 08/25/24 06:30 MCV 89.2 MCH 29.5 MCHC 33.0 RDW 14.7 Plt Count 248 MPV 10.6 Immature Gran % (Auto) 0.6 H Neut % (Auto) 72.1 Lymph % (Auto) 11.0 L [place] % (Auto) 11.3 H Eos % (Auto) 4.5 H Baso % (Auto) 0.5 Lymph # (Auto) 0.7 L [place] # (Auto) 0.8 Eos # (Auto) 0.3 Baso # (Auto) 0.0 Abs Immat Gran (auto) 0.04 H Absolute Neuts (auto) 4.8 Absolute Nucleated RBC 0.000 Nucleated RBC % (auto) 0.0 Anion Gap 16 Estim Creat Clear Calc 13.7 Estimated GFR 11 Fasting Glucose 125 H Calcium 8.1 L Total Bilirubin 0.2 AST 16 ALT 9 Alkaline Phosphatase 87 Total Protein 6.4 L Albumin 3.3 L Microbiology Microbiology Results: Microbiology 08/22/24 14:25 Gram Stain - Final Thoracentesis Fluid Anaerobic Culture - Preliminary No growth to date. Body Fluid Culture - Final No growth after 2 days Assessment and Plan (1) Uncontrolled hypertension: Status: Acute Plan 69 yo M with PAD, CAD, COPD who presented with SOB and was admitted on acute CHF and ROSAURA/CKD 1. New onset CHF s/p IV bumex with resultant increase in SCr now diuretics on hold Cardiology input appreciated 2. ROSAURA on CKD mild improvement in SCr today nephrology on board -- will follow their recs 3. HTN improving with the following regime: metoprolol xl 100, nifedipine 120, aldactone 50, doxazon 4, hydralzine to 100mg tid nephrology helping with mgmt 4. LUE swelling question related to blood draw/IV no DVT seen on imaging appears stable 5. B/l pleural effusion s/p thora -- sent for path cxr repeated, no reaccumulation but still with findings -- will consult pulm 6. PAD DAPT / statin DVT pptx, subcut heparin Quality Stroke Does the patient have a stroke diagnosis?: No VTE Prior VTE?: No VTE Risk Level:: Medical - moderate - high VTE Device Contraindication: Treatment Not Indicated VTE Drug Contraindication: N/A - Med Ordered
[2024-08-25 11:17] VITALS: BP 132/90; PULSE 73; RESP 20; TEMP 36.9; O2SAT 96
[2024-08-25] MEDS: Lactulose 20 GM/30 ML SOLUTION PO (13:14)
[2024-08-25] MEDS: Heparin Sodium,Porcine 5,000 UNIT/ML VIAL 5000 UNIT SUBCUT (13:14)
[2024-08-25 15:52] VITALS: BP 130/80; PULSE 73; RESP 21; TEMP 37; O2SAT 93
[2024-08-25 19:19] VITALS: BP 131/85; PULSE 77; RESP 17; TEMP 36.7; O2SAT 4
[2024-08-25] MEDS: Doxazosin Mesylate 2 MG TABLET 4 MG PO (20:43)
--- NOTE | 2024-08-25 20:53 | P.PNNP_ITS ---
Subjective Subjective Date of Service: 08/25/24 Principal diagnosis: Elevated BNP, uncontrolled blood pressure. Interval history: Events noted BP better controlled Physical Exam 2 Vital Signs: Vital Signs: Last Vital Signs Temp 98.0 F 08/25/24 19:19 Pulse 77 08/25/24 19:19 Resp 17 08/25/24 19:19 BP 131/85 08/25/24 19:19 Pulse Ox 4 L 08/25/24 19:19 O2 Del Method Nasal Cannula 08/25/24 19:19 O2 Flow Rate 4 08/25/24 11:17 BMI result Body Mass Index 21.3 Const: General: ill appearing Neck: Neck: Yes supple Resp: Auscultation: rhonchi Cardio: Palpation: no palpable S3 Heart sounds: no rubs GI: Palpation (GI): Soft to palpation Auscultation: normal bowel sounds Neuro: Motor exam (neuro): no asterixis Objective Data Labs 08/29/24 05:42 08/29/24 05:42 Labs: Laboratory Results - last 24 hr 08/25/24 06:30 WBC 6.7 RBC 3.53 L Hgb 10.4 L Hct 31.5 L MCV 89.2 MCH 29.5 MCHC 33.0 RDW 14.7 Plt Count 248 MPV 10.6 Immature Gran % (Auto) 0.6 H Neut % (Auto) 72.1 Lymph % (Auto) 11.0 L [place] % (Auto) 11.3 H Eos % (Auto) 4.5 H Baso % (Auto) 0.5 Lymph # (Auto) 0.7 L [place] # (Auto) 0.8 Eos # (Auto) 0.3 Baso # (Auto) 0.0 Abs Immat Gran (auto) 0.04 H Absolute Neuts (auto) 4.8 Absolute Nucleated RBC 0.000 Nucleated RBC % (auto) 0.0 Sodium 134 L Potassium 4.2 Chloride 104 Carbon Dioxide 18 L Anion Gap 16 BUN 65 H Creatinine 5.19 H* Estim Creat Clear Calc 13.7 Estimated GFR 11 Fasting Glucose 125 H Calcium 8.1 L Total Bilirubin 0.2 AST 16 ALT 9 Alkaline Phosphatase 87 Total Protein 6.4 L Albumin 3.3 L Microbiology Microbiology Results: Microbiology 08/22/24 14:25 Thoracentesis Fluid Gram Stain - Final 08/22/24 14:25 Thoracentesis Fluid Anaerobic Culture - Preliminary No growth to date. 08/22/24 14:25 Thoracentesis Fluid Body Fluid Culture - Final No growth after 2 days Procedures Date of Service Date of Service: 08/29/24 Assessment & Plan Assessment and plan (1) Uncontrolled hypertension: Status: Acute (2) CKD (chronic kidney disease): Status: Acute Plan Zi has resistant hypertension setting of significant renal artery stenosis status post bilateral stent placement. He has progressive loss of renal function due to ischemic nephropathy. At present no signs or symptoms of uremia or fluid overload. No indication for dialysis yet. Creatinine is marginally better Still close to end stage renal disease. Blood pressure initially elevated. However blood pressure is better controlled The goal at this point is to maintain systolic blood pressure around 140 Avoid hypotension I have reviewed all the medications. Avoid rapidly active intravenous antihypertensive agents. s/p Thoracenthesis No malignant cells identified Time Spent With Patient Time: Total time managing care of this patient today ____ minutes. Progress Note: Quality Stroke Does the patient have a stroke diagnosis?: No
[2024-08-25 23:51] VITALS: BP 132/82; PULSE 77; RESP 16; TEMP 36.9; O2SAT 90
[2024-08-26] VITALS (7 sets, daily range): BP systolic 140–175; BP diastolic 70–84; PULSE 72–86; RESP 16–22; TEMP 36.6–37.2; O2SAT 90–92; BMI 21.3
--- NOTE | 2024-08-26 | ECG_ITS ---
Test Reason : chest pain Blood Pressure : */* mmHG Vent. Rate : 78 BPM Atrial Rate : 78 BPM P-R Int : 210 ms QRS Dur : 98 ms QT Int : 406 ms P-R-T Axes : 55 57 71 degrees QTcB Int : 462 ms Sinus rhythm with 1st degree A-V block with frequent Premature ventricular complexes Possible Left atrial enlargement RSR' or QR pattern in V1 suggests right ventricular conduction delay Borderline ECG When compared with ECG of 20-Aug-2024 01:39, No significant change was found Referred By: Sander Fabian Electronically Signed By: UNIQUE LAZO
[2024-08-26] MEDS: cefTRIAXone sodium 1 GM VIAL IVPUSH (06:37)
[2024-08-26] MEDS: Aspirin Enteric Coated 81 MG TABLET.DR PO (06:45)
[2024-08-26 06:52] LABS: MANUAL DIFF FLAG NO
[2024-08-26 06:54] LABS: Basophils Percent Auto 0.5 % (0-2); Eosinophils Absolute Auto 0.2 X10*3/uL (0.0-0.4); Eosinophils Percent Auto 3.3 % (0-4); Hematocrit 29.2 % (42.0-52.0); Hemoglobin 9.5 g/dl (14.0-18.0); Imm Gran Abs Auto 0.02 X10*3/uL (0.00-0.03); Imm Gran Pct Auto 0.3 % (0.0-0.4); Lymphocytes Absolute Auto 0.6 X10*3/uL (1.2-4.9); Lymphocytes Percent Auto 8.6 % (20-40); Mean Corpuscular HGB Conc 32.5 g/dl (31.0-36.0); Mean Corpuscular Hemoglobin 28.8 pg (27.0-33.0); Mean Corpuscular Volume 88.5 fL (80.0-98.0); Mean Platelet Volume 10.2 fL (9.4-12.4); Monocytes Absolute Auto 0.7 X10*3/uL (0.1-1.2); Monocytes Percent Auto 10.7 % (2-11); Neutrophils Absolute Auto 5.1 x10*3/uL (2.0-8.3); Neutrophils Percent Auto 76.6 % (45-73); Platelet Count 217 X10*3/uL (160-400); Red Cell Distribution Width 14.6 % (11.0-16.0); White Blood Count 6.6 X10*3/uL (4.8-10.8)
[2024-08-26 07:19] LABS: Alanine Aminotransferase 6 U/L (0-40); Albumin Level 3.1 g/dL (3.5-5.0); Alkaline Phosphatase 83 U/L (39-117); Anion Gap 17 (12-20); Aspartate Amino Transferase 15 U/L (5-37); Bilirubin Total 0.2 mg/dL (0.0-1.0); Blood Urea Nitrogen 69 mg/dL (9-16); Calcium 8.9 mg/dL (8.4-10.2); Carbon Dioxide 19 mmol/L (22-29); Chloride 104 mmol/L (96-108); Creatinine Clr Calc Pharmacy 13.2; Estimated Glomerular Filt Rate 11; Glucose Fasting 93 mg/dL (60-99); Potassium 4.6 mmol/L (3.3-5.1); Sodium 135 mmol/L (135-145); Total Protein 5.9 g/dL (6.5-8.0)
--- NOTE | 2024-08-26 07:45 | P.CDIM_ITS ---
PROVIDER RESPONSE TEXT: To clarify, the appropriate diagnosis supported by the clinical indicators: Diastolic: Acute (newly diagnosed) HFpEF QUERY TEXT: PHYSICIAN'S DOCUMENTATION REQUEST Date of Query: 08/25/2024 09:42 AM EST Patient Name: Zi Hogan Admit Date: 08/20/2024 Dear Sander Fabian MD, A review of the medical record indicates additional documentation may be needed. Please review below and update the documentation accordingly. Clinical Indicators: Cardiology consult note dated 08/22 - New onset of Congestive heart failure. In recent echo, LVEF is 55-60%. Moderately dilated right ventricle with low normal function. Moderate biatrial enlargement. Elevated right heart pressures. BMP 1183 H IV Bumex with resultant increase in SCr. LUE, edema noted. Please provide further specificity regarding the most likely type and acuity of CHF you are evaluatin g, treating, or monitoring. Systolic Please specify if Acute, Chronic, or Acute on chronic, or Unable to determine Diastolic Please specify if Acute, Chronic, or Acute on chronic, or Unable to determine Combined Systolic/Diastolic Please specify if Acute, Chronic, or Acute on chronic, or Unable to determine Other (explain) Clinically unable to determine (explain) Thank you, Barb Oates, CCS, CDIS Use of terms such as suspected, likely, concern for, or probable (associated with a specific diagnosi s that is being evaluated, monitored, or treated as if it exists) are acceptable and can be coded in the inpatient se tting, when documented at the time of discharge. Please use your independent medical judgment in providing your response. THIS QUERY IS PART OF THE PERMANENT MEDICAL RECORD
[2024-08-26] MEDS: 0.9 % Sodium Chloride Flush 3 ML SYRINGE IVFLUSH ×3 (08:53→19:56)
[2024-08-26] MEDS: Clopidogrel Bisulfate 75 MG TABLET PO (08:54)
[2024-08-26] MEDS: Azithromycin 500 MG in 0.9 % Sodium Chloride 250 ML 125 MG IV (08:54)
[2024-08-26] MEDS: hydrALAZINE HCl 50 MG TABLET 100 MG PO ×3 (08:54→19:56)
[2024-08-26] MEDS: Spironolactone 25 MG TABLET 50 MG PO (08:54)
[2024-08-26] MEDS: NIFEdipine ER 60 MG TAB.ER.24 120 MG PO (08:55)
[2024-08-26] MEDS: Metoprolol Succinate ER 100 MG TAB.ER.24H PO (08:55)
--- NOTE | 2024-08-26 09:30 | P.PNIM_ITS ---
Subjective Subjective Date of Service: 08/26/24 Interval History: seen and examined moved bowels after enema yesterday feels tired this AM d/w him re: his renal function and oxygen stats pt off o2 while I was in the room -- sats most stayed above 90, dipped here and there to 88 Physical Exam 2 Vital Signs: Vital Signs: Last Vital Signs Temp 98.8 F 08/26/24 02:42 Pulse 77 08/26/24 08:00 Resp 22 H 08/26/24 08:00 BP 149/77 H 08/26/24 08:00 Pulse Ox 91 L 08/26/24 08:00 O2 Del Method Oxymask 08/26/24 08:00 O2 Flow Rate 4 08/26/24 08:00 BMI result Body Mass Index 21.3 Const: Other: chronically ill appearing s1s2 lungs dim LUE edema noted, about the same as yesterday AAOx3 Objective Data Active Medications Acetaminophen (Acetaminophen 325 Mg Tablet) 650 mg PO Q6H PRN PRN Reason: Pain, Mild 1-3,fever,headache Last Admin: 08/25/24 13:14 Dose: 650 mg Documented By: CATRACHITA Albuterol/Ipratropium (Albuterol/Iprat 2.5/0.5mg 3 Ml Ampul.Neb) 3 ml INHALE RQ4H WHILE AWAKE PRN PRN Reason: Wheezing Aspirin (Aspirin Enteric Coated 81 Mg Tablet.) 81 mg PO DAILY@0600 [facility] Last Admin: 08/26/24 06:45 Dose: 81 mg Documented By: CHERI Calcium Carbonate (Calcium Carbonate 750 Mg Tab.Chew) 750 mg PO Q4H PRN PRN Reason: Heartburn Ceftriaxone Sodium (Ceftriaxone Sodium 1 Gm Vial) 1 gm IVPUSH Q24H [facility] Last Admin: 08/26/24 06:37 Dose: 1 gm Documented By: CHERI Clopidogrel Bisulfate (Clopidogrel Bisulfate 75 Mg Tablet) 75 mg PO DAILY [facility] Last Admin: 08/26/24 08:54 Dose: 75 mg Documented By: FRAN Cyanocobalamin (Cyanocobalamin (Vitamin B-12) 500 Mcg Tablet) 500 mcg PO DAILY@1800 [facility] Last Admin: 08/25/24 18:22 Dose: Not Given Documented By: HO.FOSTEKR Non-Admin Reason: Patient Refused Doxazosin Mesylate (Doxazosin Mesylate 2 Mg Tablet) 4 mg PO BEDTIME [facility] Last Admin: 08/25/24 20:43 Dose: 4 mg Documented By: CHERI Heparin Sodium (Porcine) (Heparin Sodium,Porcine 5,000 Unit/Ml Vial) 5,000 unit SUBCUT Q12H [facility] Last Admin: 08/26/24 00:02 Dose: Not Given Documented By: CHERI Non-Admin Reason: Pt refused, educated reducing blood clots Hydralazine HCl (Hydralazine Hcl 50 Mg Tablet) 100 mg PO TID [facility]; Protocol Last Admin: 08/26/24 08:54 Dose: 100 mg Documented By: FRAN Azithromycin 500 mg/ Sodium (Chloride) 250 mls @ 125 mls/hr IV DAILY [facility] Last Admin: 08/26/24 08:54 Dose: 125 mls/hr Documented By: FRAN Magnesium Hydroxide (Milk Of Magnesia 30 Ml Oral.Susp) 30 ml PO DAILY PRN PRN Reason: Constipation Last Admin: 08/24/24 09:39 Dose: 30 ml Documented By: AMERICOORRFerny Melatonin (Melatonin 3 Mg Tablet) 6 mg PO BEDTIME PRN PRN Reason: Insomnia Metoprolol Succinate (Metoprolol Succinate Er 100 Mg Tab.Er.24h) 100 mg PO DAILY [facility]; Protocol Last Admin: 08/26/24 08:55 Dose: 100 mg Documented By: FRAN Nifedipine (Nifedipine Er 60 Mg Tab.Er.24) 120 mg PO DAILY [facility]; Protocol Last Admin: 08/26/24 08:55 Dose: 120 mg Documented By: FRAN Ondansetron HCl (Ondansetron Hcl 4 Mg/2 Ml Vial) 4 mg IVPUSH Q8H PRN PRN Reason: Nausea and Vomiting Last Admin: 08/21/24 17:46 Dose: 4 mg Documented By: YANG Sodium Chloride (0.9 % Sodium Chloride Flush 3 Ml Syringe) 3 ml IVFLUSH QSHIFT [facility] Last Admin: 08/26/24 08:53 Dose: 3 ml Documented By: FRAN Spironolactone (Spironolactone 25 Mg Tablet) 50 mg PO DAILY [facility]; Protocol Last Admin: 08/26/24 08:54 Dose: 50 mg Documented By: FRAN Labs 08/26/24 05:59 08/26/24 05:59 Labs: Laboratory Results - last 24 hr 08/26/24 05:59 MCV 88.5 MCH 28.8 MCHC 32.5 RDW 14.6 Plt Count 217 MPV 10.2 Immature Gran % (Auto) 0.3 Neut % (Auto) 76.6 H Lymph % (Auto) 8.6 L [place] % (Auto) 10.7 Eos % (Auto) 3.3 Baso % (Auto) 0.5 Lymph # (Auto) 0.6 L [place] # (Auto) 0.7 Eos # (Auto) 0.2 Baso # (Auto) 0.0 Abs Immat Gran (auto) 0.02 Absolute Neuts (auto) 5.1 Absolute Nucleated RBC 0.000 Nucleated RBC % (auto) 0.0 Anion Gap 17 Estim Creat Clear Calc 13.2 Estimated GFR 11 Fasting Glucose 93 Calcium 8.9 D Total Bilirubin 0.2 AST 15 ALT 6 Alkaline Phosphatase 83 Total Protein 5.9 L Albumin 3.1 L Microbiology Microbiology Results: Microbiology 08/22/24 14:25 Gram Stain - Final Thoracentesis Fluid Anaerobic Culture - Preliminary No growth to date. Body Fluid Culture - Final No growth after 2 days Assessment and Plan (1) Uncontrolled hypertension: Status: Acute Plan 69 yo M with PAD, CAD, COPD who presented with SOB and was admitted on acute CHF and ROSAURA/CKD 1. New onset CHF (HFpEF) leading to acute resp failure with hypoxia s/p IV bumex with resultant increase in SCr now diuretics on hold Cardiology input appreciated appears to be stable on 2-3L o2 -- will wean as tolerated 2. ROSAURA on CKD SCr has been stable nephrology on board -- will follow their recs 3. HTN improving with the following regime: metoprolol xl 100, nifedipine 120, aldactone 50, doxazon 4, hydralzine to 100mg tid nephrology helping with mgmt 4. LUE swelling question related to blood draw/IV no DVT seen on imaging appears stable 5. B/l pleural effusion s/p thora -- sent for path cxr repeated, no reaccumulation but still with findings -- will consult pulm 6. PAD DAPT / statin pt eval DVT pptx, subcut heparin Quality Stroke Does the patient have a stroke diagnosis?: No VTE Prior VTE?: No VTE Risk Level:: Medical - moderate - high VTE Device Contraindication: Treatment Not Indicated VTE Drug Contraindication: N/A - Med Ordered
[2024-08-26] MEDS: Acetaminophen 325 MG TABLET 650 MG PO (11:23)
[2024-08-26] MEDS: Heparin Sodium,Porcine 5,000 UNIT/ML VIAL 5000 UNIT SUBCUT (11:36)
--- NOTE | 2024-08-26 12:00 | MHC.CM.PN ---
PT evaluated pt and are recommending STR. This CM met with pt to discuss discharge plan and STR options. Pt stating he is agreeable with going to STR, and has no preference. [facility], [facility] bed [facility].
[2024-08-26 12:22] LABS: Troponin-I High Sensitivity 16.8 ng/L (<3.5-35.0)
--- NOTE | 2024-08-26 13:02 | PM.CNPUL ---
History of Present Illness History of Present Illness Consult date: 08/26/24 Chief complaint: Hypoxia Narrative: 69-year-old male with COPD, CAD, CKD admitted on 2024 with dyspnea and hypoxia. Patient was noted to have large right-sided and small left-sided pleural effusions. He had thoracentesis with drainage of approximately 1 L of transudative fluid from the right side. He also started on empiric diuresis with slow improvement in hypoxia. Review of Systems Constitutional: Constitutional: Denies daytime sleepiness, Denies excessive sweating, Denies fatigue, Denies fever(s), Denies lethargy, Denies malaise, Denies night sweats, Denies snoring and Denies weight loss Eyes: Eyes: Denies blurry vision and Denies itchy eyes ENT: Denies nasal congestion, Denies post nasal drip, Denies sinus pain, Denies sinus pressure and Denies other ( Thrush) Cardiovascular: Cardiovascular: Denies chest pain, Denies pedal edema, Denies dyspnea, Reports dyspnea on exertion, Denies orthopnea and Denies paroxysmal nocturnal dyspnea Respiratory: Respiratory: Denies cough, Denies hemoptysis, Denies excessive phlegm production, Denies dyspnea, Reports dyspnea on exertion, Denies snoring and Denies wheezing Gastrointestinal: Gastrointestinal: Denies abdominal pain and Denies heartburn Musculoskeletal: Musculoskeletal: Denies myalgias, Denies arthralgias and Denies joint swelling Integumentary/Breasts: Skin/Breast: Denies rash Neurologic: Denies memory loss and Denies seizure-like activity Psychiatric: Psychiatric: Denies abnormal sleep pattern, Denies anxiety and Denies memory loss Endocrine: Endocrine: Denies excessive sweating, Denies fatigue and Denies heat intolerance Hematologic/Lymphatic: Hematologic/Lymphatic: Denies easy bruising Allergic/Immunologic: Allergic/Immunologic: Denies itchy eyes, Denies seasonal rhinorrhea and Denies wheezing PMFSH Past Medical History Medical History CKD (chronic kidney disease) Subarachnoid hemorrhage Tubular adenoma COVID-19 vaccination refused History of testicular cancer Peripheral arterial disease Hypercholesterolemia Coronary artery disease Tobacco abuse COPD (chronic obstructive pulmonary disease) Hypertension Family History Family History Father No problems noted. Mother No problems noted. Maternal Grandmother Myocardial infarction Brother In good health Sister In good health Son In good health Son In good health Daughter In good health Sister Diabetes Surgical History Surgical History History of surgery Hx of colonoscopy Hx of prostate biopsy History of tonsillectomy History of testicular surgery Social History Social History Household Members: Spouse, Significant Other and Family Household Members Other:: 6 Housing: House Are you a primary insurance healthcare representative to a significant other at home: No Do you presently have visiting nurse or other home services: No Alcohol intake: former Patient Tobacco Use Status: Former Tobacco user Tobacco use type: Cigarette Cigarette Packs Per Day: 0.5 Cigarettes Per Day: 2 Years Smoked: 53 years- 10/PER DAY e-Cigarette/Vaping Use: Never Used Second Hand Smoke Exposure: Yes service: No Current occupational status: employed Current occupational exposures/hazards: No Cognitive needs: No Hearing needs: No Vision needs: Yes Meds Allergies Allergy/AdvReac Type Severity Reaction Status Date / Time Penicillins [PCN] Allergy Intermediate Hives Verified 08/20/24 01:54 Active Medications: Current Medications Acetaminophen (Acetaminophen 325 Mg Tablet) 650 mg PO Q6H PRN PRN Reason: Pain, Mild 1-3,fever,headache Last Admin: 08/26/24 11:23 Dose: 650 mg Albuterol/Ipratropium (Albuterol/Iprat 2.5/0.5mg 3 Ml Ampul.Neb) 3 ml INHALE RQ4H WHILE AWAKE PRN PRN Reason: Wheezing Aspirin (Aspirin Enteric Coated 81 Mg Tablet.Dr) 81 mg PO DAILY@0600 [facility] Last Admin: 08/26/24 06:45 Dose: 81 mg Calcium Carbonate (Calcium Carbonate 750 Mg Tab.Chew) 750 mg PO Q4H PRN PRN Reason: Heartburn Ceftriaxone Sodium (Ceftriaxone Sodium 1 Gm Vial) 1 gm IVPUSH Q24H [facility] Last Admin: 08/26/24 06:37 Dose: 1 gm Clopidogrel Bisulfate (Clopidogrel Bisulfate 75 Mg Tablet) 75 mg PO DAILY [facility] Last Admin: 08/26/24 08:54 Dose: 75 mg Cyanocobalamin (Cyanocobalamin (Vitamin B-12) 500 Mcg Tablet) 500 mcg PO DAILY@1800 [facility] Last Admin: 08/25/24 18:22 Dose: Not Given Doxazosin Mesylate (Doxazosin Mesylate 2 Mg Tablet) 4 mg PO BEDTIME [facility] Last Admin: 08/25/24 20:43 Dose: 4 mg Heparin Sodium (Porcine) (Heparin Sodium,Porcine 5,000 Unit/Ml Vial) 5,000 unit SUBCUT Q12H [facility] Last Admin: 08/26/24 11:36 Dose: 5,000 unit Hydralazine HCl (Hydralazine Hcl 50 Mg Tablet) 100 mg PO TID [facility]; Protocol Last Admin: 08/26/24 08:54 Dose: 100 mg Azithromycin 500 mg/ Sodium (Chloride) 250 mls @ 125 mls/hr IV DAILY [facility] Last Infusion: 08/26/24 10:55 Dose: Infused Magnesium Hydroxide (Milk Of Magnesia 30 Ml Oral.Susp) 30 ml PO DAILY PRN PRN Reason: Constipation Last Admin: 08/24/24 09:39 Dose: 30 ml Melatonin (Melatonin 3 Mg Tablet) 6 mg PO BEDTIME PRN PRN Reason: Insomnia Metoprolol Succinate (Metoprolol Succinate Er 100 Mg Tab.Er.24h) 100 mg PO DAILY [facility]; Protocol Last Admin: 08/26/24 08:55 Dose: 100 mg Nifedipine (Nifedipine Er 60 Mg Tab.Er.24) 120 mg PO DAILY [facility]; Protocol Last Admin: 08/26/24 08:55 Dose: 120 mg Ondansetron HCl (Ondansetron Hcl 4 Mg/2 Ml Vial) 4 mg IVPUSH Q8H PRN PRN Reason: Nausea and Vomiting Last Admin: 08/21/24 17:46 Dose: 4 mg Sodium Chloride (0.9 % Sodium Chloride Flush 3 Ml Syringe) [facility] Last Admin: 08/26/24 08:53 Dose: 3 ml Spironolactone (Spironolactone 25 Mg Tablet) 50 mg PO DAILY [facility]; Protocol Last Admin: 08/26/24 08:54 Dose: 50 mg Home Medications ?Medication ?Instructions ?Recorded ?Confirmed ?Last Taken ?Type aspirin 81 mg tablet,delayed 81 mg PO DAILY@0600 03/04/21 08/20/24 08/19/24 History release (Adult Aspirin Regimen) cyanocobalamin (vitamin B-12) 500 mcg PO DAILY@1800 09/25/22 08/20/24 08/19/24 History 1,000 mcg capsule finasteride 5 mg tablet 5 mg PO Q OTHER DAY 03/15/24 08/20/24 08/19/24 History Physical Exam Vital Signs: Vital Signs: Last Vital Signs Temp 99 F 08/26/24 11:21 Pulse 72 08/26/24 11:21 Resp 18 08/26/24 11:21 BP 154/84 H 08/26/24 11:21 Pulse Ox 92 08/26/24 11:21 O2 Del Method Nasal Cannula 08/26/24 11:21 O2 Flow Rate 2 08/26/24 11:21 BMI result Body Mass Index 21.3 Const: General: no acute distress and alert Nutritional Appearance: not obese Orientation/consciousness: Other orientation findings ( oriented) HEENT: Head: Yes atraumatic Eyes: General: appearance normal, both eyes and all related structures Sclerae: sclerae normal EOM: EOMs intact bilaterally Neck: Neck: Yes supple Lymphatic: no lymphadenopathy noted Resp: Effort & Inspection: normal respiratory effort and no use of accessory muscles Auscultation: crackles (Mild bilateral) Cardio: Rate: regular rate Rhythm: regular rhythm Heart sounds: no gallops, no murmurs and no rubs Skin: General skin exam: other ( warm) Extrem: General: No clubbing, No cyanosis and Yes edema (Trace bilateral) Results Laboratory Findings 08/26/24 05:59 08/26/24 05:59 Abnormal lab findings: Abnormal Labs 08/20/24 08/20/24 08/21/24 01:47 01:53 06:38 RBC 3.50 L D 3.66 L Hgb 10.3 L D 10.9 L Hct 30.3 L D 31.9 L Immature Gran % (Auto) Neut % (Auto) Lymph % (Auto) 14.5 L 15.0 L Wilkin % (Auto) 11.4 H Eos % (Auto) 4.1 H 4.3 H Lymph # (Auto) 1.1 L 0.9 L Abs Immat Gran (auto) Sodium Chloride 109 H Carbon Dioxide 14 L 18 L BUN 50 H 57 H Creatinine 4.65 H* 4.95 H* Random Glucose 153 H 117 H Fasting Glucose Calcium B-Natriuretic Peptide 1183 H Total Protein 6.4 L 6.3 L Albumin 3.2 L 3.3 L 08/22/24 08/23/24 08/24/24 06:02 07:10 05:58 RBC 3.40 L 3.45 L 3.46 L Hgb 10.0 L 10.3 L 10.1 L Hct 30.5 L 31.0 L 31.3 L Immature Gran % (Auto) 0.5 H 0.7 H 0.7 H Neut % (Auto) 76.1 H 76.1 H Lymph % (Auto) 14.4 L 9.0 L 9.7 L Wilkin % (Auto) Eos % (Auto) 4.4 H Lymph # (Auto) 0.8 L 0.5 L 0.7 L Abs Immat Gran (auto) 0.04 H 0.05 H Sodium 134 L 133 L Chloride Carbon Dioxide 18 L 19 L 18 L BUN 61 H 63 H 65 H Creatinine 5.28 H* 5.42 H* 5.58 H* Random Glucose Fasting Glucose 106 H Calcium 8.2 L 8.2 L B-Natriuretic Peptide Total Protein 6.0 L 5.8 L 6.0 L Albumin 3.2 L 3.1 L 3.2 L 08/25/24 08/26/24 06:30 05:59 RBC 3.53 L 3.30 L Hgb 10.4 L 9.5 L Hct 31.5 L 29.2 L Immature Gran % (Auto) 0.6 H Neut % (Auto) 76.6 H Lymph % (Auto) 11.0 L 8.6 L Wilkin % (Auto) 11.3 H Eos % (Auto) 4.5 H Lymph # (Auto) 0.7 L 0.6 L Abs Immat Gran (auto) 0.04 H Sodium 134 L Chloride Carbon Dioxide 18 L 19 L BUN 65 H 69 H Creatinine 5.19 H* 5.39 H* Random Glucose Fasting Glucose 125 H Calcium 8.1 L B-Natriuretic Peptide Total Protein 6.4 L 5.9 L Albumin 3.3 L 3.1 L Microbiology: Microbiology 08/22/24 14:25 Thoracentesis Fluid Gram Stain - Final 08/22/24 14:25 Thoracentesis Fluid Anaerobic Culture - Preliminary No growth to date. 08/22/24 14:25 Thoracentesis Fluid Body Fluid Culture - Final No growth after 2 days Assessment and Plan (1) COPD (chronic obstructive pulmonary disease): Qualifiers: COPD type: emphysema Emphysema type: panlobular Qualified Code(s): J43.1 - Panlobular emphysema Status: Acute (2) Acute respiratory failure with hypoxia: Status: Acute (3) Pleural effusion: Status: Acute Plan Impression: 69-year-old gentleman with underlying CKD, CHF COPD admitted with acute hypoxic respiratory failure secondary to exacerbation of underlying congestive heart failure, also noted to have bilateral pleural effusions right greater than left, now status post thoracentesis of right-sided effusion with drainage of 1 L of transudative fluid, improving slowly. Recommendations: Agree with current therapeutic regimen. Pleural effusions likely secondary to underlying congestive heart failure. Overall appears to be still with excess fluid volume, however patient does have worsening renal function, so may need volume re-equilibration before resumption of diuresis. Underlying emphysema and likely significant COPD, may require supplemental oxygen at baseline. Procedures Date of Service Date of Service: 08/26/24
[2024-08-26] MEDS: Cyanocobalamin (Vitamin B-12) 500 MCG TABLET PO (16:27)
[2024-08-26] MEDS: oxyCODONE HCl Immed Release 5 MG TABLET PO (18:44)
[2024-08-26] MEDS: Doxazosin Mesylate 2 MG TABLET 4 MG PO (19:55)
[2024-08-26] MEDS: Melatonin 3 MG TABLET 6 MG PO (19:57)
[2024-08-27] MEDS: Zolpidem Tartrate 5 MG TABLET PO (00:36)
[2024-08-27 03:23] VITALS: BP 162/81; PULSE 74; RESP 18; TEMP 36.8; O2SAT 92
[2024-08-27] MEDS: Aspirin Enteric Coated 81 MG TABLET.DR PO (05:31)
[2024-08-27] MEDS: cefTRIAXone sodium 1 GM VIAL IVPUSH (05:31)
[2024-08-27 06:00] VITALS: BMI 21.2
[2024-08-27 07:49] VITALS: BP 156/87; PULSE 76; RESP 18; TEMP 36.8; O2SAT 92
[2024-08-27] MEDS: Azithromycin 500 MG in 0.9 % Sodium Chloride 250 ML 125 MG IV (08:00)
[2024-08-27] MEDS: Metoprolol Succinate ER 100 MG TAB.ER.24H PO (08:01)
[2024-08-27] MEDS: hydrALAZINE HCl 50 MG TABLET 100 MG PO ×3 (08:01→19:54)
[2024-08-27] MEDS: 0.9 % Sodium Chloride Flush 3 ML SYRINGE IVFLUSH ×3 (08:01→19:54)
[2024-08-27] MEDS: Spironolactone 25 MG TABLET 50 MG PO (08:01)
[2024-08-27] MEDS: NIFEdipine ER 60 MG TAB.ER.24 120 MG PO (08:02)
[2024-08-27] MEDS: Clopidogrel Bisulfate 75 MG TABLET PO (08:02)
--- NOTE | 2024-08-27 10:22 | HO.PM.IMPN ---
Subjective Subjective Date of Service: 08/27/24 Interval History: seen and examined this AM had trouble sleeping, got melatonin and slept well after that denies abd pain breathing stable Physical Exam Vital Signs: Vital Signs: Last Vital Signs Temp 98.2 F 08/27/24 07:49 Pulse 76 08/27/24 07:49 Resp 18 08/27/24 07:49 BP 156/87 H 08/27/24 07:49 Pulse Ox 92 08/27/24 07:49 O2 Del Method Nasal Cannula 08/27/24 07:49 O2 Flow Rate 3.5 08/27/24 07:49 BMI result Body Mass Index 21.2 Const: Other: chronically ill appearing s1s2 lungs dim LUE edema noted, unchanged;no pedal edema AAOx3 Objective Data Active Medications Acetaminophen (Acetaminophen 325 Mg Tablet) 650 mg PO Q6H PRN PRN Reason: Pain, Mild 1-3,fever,headache Last Admin: 08/26/24 11:23 Dose: 650 mg Documented By: FRAN Aspirin (Aspirin Enteric Coated 81 Mg Tablet.) 81 mg PO DAILY@0600 [facility] Last Admin: 08/27/24 05:31 Dose: 81 mg Documented By: AMANUEL Calcium Carbonate (Calcium Carbonate 750 Mg Tab.Chew) 750 mg PO Q4H PRN PRN Reason: Heartburn Ceftriaxone Sodium (Ceftriaxone Sodium 1 Gm Vial) 1 gm IVPUSH Q24H [facility] Last Admin: 08/27/24 05:31 Dose: 1 gm Documented By: AMANUEL Clopidogrel Bisulfate (Clopidogrel Bisulfate 75 Mg Tablet) 75 mg PO DAILY [facility] Last Admin: 08/27/24 08:02 Dose: 75 mg Documented By: NELDA Cyanocobalamin (Cyanocobalamin (Vitamin B-12) 500 Mcg Tablet) 500 mcg PO DAILY@1800 [facility] Last Admin: 08/26/24 16:27 Dose: 500 mcg Documented By: SAMEER Doxazosin Mesylate (Doxazosin Mesylate 2 Mg Tablet) 4 mg PO BEDTIME [facility] Last Admin: 08/26/24 19:55 Dose: 4 mg Documented By: AMANUEL Heparin Sodium (Porcine) (Heparin Sodium,Porcine 5,000 Unit/Ml Vial) 5,000 unit SUBCUT Q12H [facility] Last Admin: 08/27/24 00:36 Dose: Not Given Documented By: AMANUEL Non-Admin Reason: Patient Refused Hydralazine HCl (Hydralazine Hcl 50 Mg Tablet) 100 mg PO TID [facility]; Protocol Last Admin: 08/27/24 08:01 Dose: 100 mg Documented By: NELDA Azithromycin 500 mg/ Sodium (Chloride) 250 mls @ 125 mls/hr IV DAILY [facility] Last Infusion: 08/27/24 10:00 Dose: Infused Documented By: NELDA Magnesium Hydroxide (Milk Of Magnesia 30 Ml Oral.Susp) 30 ml PO DAILY PRN PRN Reason: Constipation Last Admin: 08/24/24 09:39 Dose: 30 ml Documented By: AMERICOORRFerny Melatonin (Melatonin 3 Mg Tablet) 6 mg PO BEDTIME PRN PRN Reason: Insomnia Last Admin: 08/26/24 19:57 Dose: 6 mg Documented By: AMANUEL Metoprolol Succinate (Metoprolol Succinate Er 100 Mg Tab.Er.24h) 100 mg PO DAILY [facility]; Protocol Last Admin: 08/27/24 08:01 Dose: 100 mg Documented By: NELDA Nifedipine (Nifedipine Er 60 Mg Tab.Er.24) 120 mg PO DAILY [facility]; Protocol Last Admin: 08/27/24 08:02 Dose: 120 mg Documented By: NELDA Ondansetron HCl (Ondansetron Hcl 4 Mg/2 Ml Vial) 4 mg IVPUSH Q8H PRN PRN Reason: Nausea and Vomiting Last Admin: 08/21/24 17:46 Dose: 4 mg Documented By: YANG Oxycodone HCl (Oxycodone Hcl Immed Release 5 Mg Tablet) 5 mg PO Q6H PRN PRN Reason: Pain, Moderate(Pain Scale 4-6) Last Admin: 08/26/24 18:44 Dose: 5 mg Documented By: SAMEER Sodium Chloride (0.9 % Sodium Chloride Flush 3 Ml Syringe) [address] [facility] Last Admin: 08/27/24 08:01 Dose: 3 ml Documented By: NELDA Spironolactone (Spironolactone 25 Mg Tablet) 50 mg PO DAILY [facility]; Protocol Last Admin: 08/27/24 08:01 Dose: 50 mg Documented By: NELDA Labs 08/26/24 05:59 08/26/24 05:59 Labs: Laboratory Results - last 24 hr 08/26/24 11:24 Troponin I High Sens 16.8 Microbiology Microbiology Results: Microbiology 08/22/24 14:25 Gram Stain - Final Thoracentesis Fluid Anaerobic Culture - Final NO GROWTH AFTER 5 DAYS Body Fluid Culture - Final No growth after 2 days Assessment and Plan (1) Uncontrolled hypertension: Status: Acute Plan 69 yo M with PAD, CAD, COPD who presented with SOB and was admitted on acute CHF and ROSAURA/CKD 1. New onset CHF (HFpEF) leading to acute resp failure with hypoxia s/p IV bumex with resultant increase in SCr now diuretics on hold Cardiology input appreciated appears to be stable on 2-3L o2 -- will wean as tolerated 2. ROSAURA on CKD SCr has been stable nephrology on board -- follow recs ? consider restarting diuretics - will d/w nephro check labs tomorrow 3. HTN improving with the following regime: metoprolol xl 100, nifedipine 120, aldactone 50, doxazon 4, hydralzine to 100mg tid nephrology helping with mgmt 4. LUE swelling question related to blood draw/IV no DVT seen on imaging appears stable 5. B/l pleural effusion s/p thora -- sent for path cxr repeated, no reaccumulation but still with findings -- will consult pulm 6. PAD DAPT / statin pt eval DVT pptx, subcut heparin Quality Stroke Does the patient have a stroke diagnosis?: No VTE Prior VTE?: No VTE Risk Level:: Medical - moderate - high VTE Device Contraindication: Treatment Not Indicated VTE Drug Contraindication: N/A - Med Ordered
[2024-08-27] MEDS: Heparin Sodium,Porcine 5,000 UNIT/ML VIAL 5000 UNIT SUBCUT ×2 (11:15→23:17)
[2024-08-27] MEDS: Bumetanide 1 MG TABLET PO (11:16)
[2024-08-27 11:52] VITALS: BP 131/82; PULSE 79; RESP 20; TEMP 35.8; O2SAT 95
[2024-08-27 15:15] VITALS: BP 137/82; PULSE 72; RESP 14; TEMP 36; O2SAT 94
[2024-08-27] MEDS: Acetaminophen 325 MG TABLET 650 MG PO ×2 (15:35→23:10)
[2024-08-27 15:57] VITALS: PULSE 77; RESP 18; O2SAT 91
[2024-08-27] MEDS: Cyanocobalamin (Vitamin B-12) 500 MCG TABLET PO (17:26)
[2024-08-27 19:15] VITALS: BP 131/64; PULSE 78; RESP 18; TEMP 36.5; O2SAT 92
[2024-08-27] MEDS: Doxazosin Mesylate 2 MG TABLET 4 MG PO (19:52)
[2024-08-27] MEDS: Melatonin 3 MG TABLET 6 MG PO (19:52)
[2024-08-28] VITALS (9 sets, daily range): BP systolic 131–144; BP diastolic 63–80; PULSE 70–80; RESP 14–18; TEMP 36.3–36.6; O2SAT 74–94; BMI 21.8
[2024-08-28] MEDS: oxyCODONE HCl Immed Release 5 MG TABLET PO ×2 (01:55→21:18)
[2024-08-28] MEDS: Aspirin Enteric Coated 81 MG TABLET.DR PO (06:07)
[2024-08-28] MEDS: cefTRIAXone sodium 1 GM VIAL IVPUSH (06:08)
[2024-08-28 06:58] LABS: Anion Gap 16 (12-20); Blood Urea Nitrogen 62 mg/dL (9-16); Calcium 8.5 mg/dL (8.4-10.2); Carbon Dioxide 18 mmol/L (22-29); Chloride 104 mmol/L (96-108); Creatinine Clr Calc Pharmacy 13.6; Estimated Glomerular Filt Rate 11; Glucose Random 94 mg/dL (60-115); Potassium 4.4 mmol/L (3.3-5.1); Sodium 134 mmol/L (135-145)
[2024-08-28] MEDS: NIFEdipine ER 60 MG TAB.ER.24 120 MG PO (08:25)
[2024-08-28] MEDS: Metoprolol Succinate ER 100 MG TAB.ER.24H PO (08:25)
[2024-08-28] MEDS: hydrALAZINE HCl 50 MG TABLET 100 MG PO ×3 (08:25→21:18)
[2024-08-28] MEDS: Spironolactone 25 MG TABLET 50 MG PO (08:25)
[2024-08-28] MEDS: Bumetanide 1 MG TABLET PO (08:26)
[2024-08-28] MEDS: Azithromycin 500 MG in 0.9 % Sodium Chloride 250 ML 125 MG IV (08:26)
[2024-08-28] MEDS: 0.9 % Sodium Chloride Flush 3 ML SYRINGE IVFLUSH ×3 (08:26→21:19)
[2024-08-28] MEDS: Acetaminophen 325 MG TABLET 650 MG PO ×2 (08:26→16:20)
[2024-08-28] MEDS: Clopidogrel Bisulfate 75 MG TABLET PO (08:26)
--- NOTE | 2024-08-28 10:30 | P.PNIM_ITS ---
Subjective Subjective Date of Service: 08/28/24 Interval History: left first toe pain (small area of back at tip) Physical Exam 2 Vital Signs: Vital Signs: Last Vital Signs Temp 97.5 F 08/28/24 07:20 Pulse 72 08/28/24 07:20 Resp 14 08/28/24 07:20 BP 144/74 H 08/28/24 07:20 Pulse Ox 91 L 08/28/24 07:20 O2 Del Method Room Air 08/28/24 07:20 O2 Flow Rate 2 08/28/24 04:00 BMI result Body Mass Index 21.8 Const: Other: chronically ill appearing s1s2 lungs dim LUE edema noted, unchanged;no pedal edema AAOx3 Objective Data Active Medications Acetaminophen (Acetaminophen 325 Mg Tablet) 650 mg PO Q6H PRN PRN Reason: Pain, Mild 1-3,fever,headache Last Admin: 08/28/24 08:26 Dose: 650 mg Documented By: NELDA Aspirin (Aspirin Enteric Coated 81 Mg Tablet.Dr) 81 mg PO DAILY@0600 [facility] Last Admin: 08/28/24 06:07 Dose: 81 mg Documented By: AMANUEL Bumetanide (Bumetanide 1 Mg Tablet) 1 mg PO DAILY [facility]; Protocol Last Admin: 08/28/24 08:26 Dose: 1 mg Documented By: NELDA Calcium Carbonate (Calcium Carbonate 750 Mg Tab.Chew) 750 mg PO Q4H PRN PRN Reason: Heartburn Ceftriaxone Sodium (Ceftriaxone Sodium 1 Gm Vial) 1 gm IVPUSH Q24H [facility] Last Admin: 08/28/24 06:08 Dose: 1 gm Documented By: AMANUEL Clopidogrel Bisulfate (Clopidogrel Bisulfate 75 Mg Tablet) 75 mg PO DAILY [facility] Last Admin: 08/28/24 08:26 Dose: 75 mg Documented By: NELDA Cyanocobalamin (Cyanocobalamin (Vitamin B-12) 500 Mcg Tablet) 500 mcg PO DAILY@1800 [facility] Last Admin: 08/27/24 17:26 Dose: 500 mcg Documented By: NELDA Doxazosin Mesylate (Doxazosin Mesylate 2 Mg Tablet) 4 mg PO BEDTIME [facility] Last Admin: 08/27/24 19:52 Dose: 4 mg Documented By: AMANUEL Heparin Sodium (Porcine) (Heparin Sodium,Porcine 5,000 Unit/Ml Vial) 5,000 unit SUBCUT Q12H [facility] Last Admin: 08/27/24 23:17 Dose: 5,000 unit Documented By: AMANUEL Hydralazine HCl (Hydralazine Hcl 50 Mg Tablet) 100 mg PO TID [facility]; Protocol Last Admin: 08/28/24 08:25 Dose: 100 mg Documented By: NELDA Azithromycin 500 mg/ Sodium (Chloride) 250 mls @ 125 mls/hr IV DAILY [facility] Last Admin: 08/28/24 08:26 Dose: 125 mls/hr Documented By: NELDA Magnesium Hydroxide (Milk Of Magnesia 30 Ml Oral.Susp) 30 ml PO DAILY PRN PRN Reason: Constipation Last Admin: 08/24/24 09:39 Dose: 30 ml Documented By: TYRA Melatonin (Melatonin 3 Mg Tablet) 6 mg PO BEDTIME PRN PRN Reason: Insomnia Last Admin: 08/27/24 19:52 Dose: 6 mg Documented By: AMANUEL Metoprolol Succinate (Metoprolol Succinate Er 100 Mg Tab.Er.24h) 100 mg PO DAILY [facility]; Protocol Last Admin: 08/28/24 08:25 Dose: 100 mg Documented By: NELDA Nifedipine (Nifedipine Er 60 Mg Tab.Er.24) 120 mg PO DAILY [facility]; Protocol Last Admin: 08/28/24 08:25 Dose: 120 mg Documented By: NELDA Ondansetron HCl (Ondansetron Hcl 4 Mg/2 Ml Vial) 4 mg IVPUSH Q8H PRN PRN Reason: Nausea and Vomiting Last Admin: 08/21/24 17:46 Dose: 4 mg Documented By: YANG Oxycodone HCl (Oxycodone Hcl Immed Release 5 Mg Tablet) 5 mg PO Q6H PRN PRN Reason: Pain, Moderate(Pain Scale 4-6) Last Admin: 08/28/24 01:55 Dose: 5 mg Documented By: AMANUEL Sodium Chloride (0.9 % Sodium Chloride Flush 3 Ml Syringe) 3 ml IVFLUSH QSHIFT [facility] Last Admin: 08/28/24 08:26 Dose: 3 ml Documented By: NELDA Spironolactone (Spironolactone 25 Mg Tablet) 50 mg PO DAILY [facility]; Protocol Last Admin: 08/28/24 08:25 Dose: 50 mg Documented By: NELDA Trazodone HCl (Trazodone Hcl 25 Mg Halftab) 25 mg PO BEDTIME PRN PRN Reason: Insomnia Labs 08/26/24 05:59 08/28/24 05:47 Labs: Laboratory Results - last 24 hr 08/28/24 05:47 Anion Gap 16 Estim Creat Clear Calc 13.6 Estimated GFR 11 Random Glucose 94 Calcium 8.5 Microbiology Microbiology Results: Microbiology 08/22/24 14:25 Gram Stain - Final Thoracentesis Fluid Anaerobic Culture - Final NO GROWTH AFTER 5 DAYS Body Fluid Culture - Final No growth after 2 days Assessment and Plan (1) Uncontrolled hypertension: Status: Acute Plan 69 yo M with PAD, CAD, COPD who presented with SOB and was admitted on acute CHF and ROSAURA/CKD 1. New onset CHF (HFpEF) leading to acute resp failure with hypoxia s/p IV bumex with resultant increase in SCr now on 1mg po daily Cardiology input appreciated appears to be stable on 2-3L o2 -- will wean as tolerated 2. ROSAURA on CKD SCr has been stable nephrology on board -- follow recs check labs tomorrow 3. HTN improving with the following regime: metoprolol xl 100, nifedipine 120, aldactone 50, doxazon 4, hydralzine to 100mg tid nephrology helping with mgmt 4. LUE swelling question related to blood draw/IV no DVT seen on imaging appears stable 5. B/l pleural effusion s/p thora -- sent for path cxr repeated, no reaccumulation but still with findings -- will consult pulm 6. PAD DAPT / statin pt recommending STR DVT pptx, subcut heparin reason for continued hospitalization:str availability Quality Stroke Does the patient have a stroke diagnosis?: No VTE Prior VTE?: No VTE Risk Level:: Medical - moderate - high VTE Device Contraindication: Treatment Not Indicated VTE Drug Contraindication: N/A - Med Ordered
[2024-08-28] MEDS: Heparin Sodium,Porcine 5,000 UNIT/ML VIAL 5000 UNIT SUBCUT (10:47)
[2024-08-28] MEDS: Cyanocobalamin (Vitamin B-12) 500 MCG TABLET PO (16:16)
[2024-08-28] MEDS: Doxazosin Mesylate 2 MG TABLET 4 MG PO (21:16)
[2024-08-28] MEDS: Melatonin 3 MG TABLET 6 MG PO (21:19)
[2024-08-29] MEDS: Heparin Sodium,Porcine 5,000 UNIT/ML VIAL 5000 UNIT SUBCUT ×2 (00:19→10:44)
[2024-08-29] MEDS: ondansetron HCL 4 MG/2 ML VIAL IVPUSH (00:19)
[2024-08-29 04:00] VITALS: BP 125/67; PULSE 77; RESP 18; TEMP 36.3; O2SAT 92
[2024-08-29] MEDS: cefTRIAXone sodium 1 GM VIAL IVPUSH (05:48)
[2024-08-29] MEDS: Aspirin Enteric Coated 81 MG TABLET.DR PO (05:48)
[2024-08-29 06:00] VITALS: BMI 21.3
[2024-08-29 06:19] LABS: Hematocrit 30.2 % (42.0-52.0); Mean Corpuscular HGB Conc 33.1 g/dl (31.0-36.0); Mean Corpuscular Volume 87.5 fL (80.0-98.0); Mean Platelet Volume 10.7 fL (9.4-12.4); Platelet Count 217 X10*3/uL (160-400); Red Blood Count 3.45 X10*6/uL (4.60-5.80); Red Cell Distribution Width 14.4 % (11.0-16.0); White Blood Count 5.7 X10*3/uL (4.8-10.8)
[2024-08-29 07:31] VITALS: BP 119/83; PULSE 72; RESP 20; TEMP 36.5; O2SAT 92
[2024-08-29 07:52] LABS: Anion Gap 16 (12-20); Blood Urea Nitrogen 62 mg/dL (9-16); Calcium 8.4 mg/dL (8.4-10.2); Carbon Dioxide 18 mmol/L (22-29); Chloride 104 mmol/L (96-108); Creatinine Clr Calc Pharmacy 13.7; Estimated Glomerular Filt Rate 11; Glucose Random 96 mg/dL (60-115); Potassium 4.5 mmol/L (3.3-5.1); Sodium 133 mmol/L (135-145)
[2024-08-29] MEDS: Bumetanide 1 MG TABLET PO (08:08)
[2024-08-29] MEDS: 0.9 % Sodium Chloride Flush 3 ML SYRINGE IVFLUSH (08:08)
[2024-08-29] MEDS: NIFEdipine ER 60 MG TAB.ER.24 120 MG PO (08:08)
[2024-08-29] MEDS: Azithromycin 500 MG in 0.9 % Sodium Chloride 250 ML 125 MG IV (08:08)
[2024-08-29] MEDS: Spironolactone 25 MG TABLET 50 MG PO (08:09)
[2024-08-29] MEDS: Metoprolol Succinate ER 100 MG TAB.ER.24H PO (08:09)
[2024-08-29] MEDS: hydrALAZINE HCl 50 MG TABLET 100 MG PO (08:09)
[2024-08-29] MEDS: Acetaminophen 325 MG TABLET 650 MG PO (08:09)
[2024-08-29] MEDS: Clopidogrel Bisulfate 75 MG TABLET PO (08:09)
--- NOTE | 2024-08-29 08:52 | P.PNNP_ITS ---
Subjective Subjective Date of Service: 08/29/24 Principal diagnosis: Elevated BNP, uncontrolled blood pressure. Interval history: Events noted Physical Exam 2 Vital Signs: Vital Signs: Last Vital Signs Temp 97.7 F 08/29/24 07:31 Pulse 72 08/29/24 07:31 Resp 20 08/29/24 07:31 BP 119/83 08/29/24 07:31 Pulse Ox 92 08/29/24 07:31 O2 Del Method Nasal Cannula 08/29/24 07:31 O2 Flow Rate 4 08/29/24 07:31 BMI result Body Mass Index 21.3 Objective Data Labs 08/29/24 05:42 08/29/24 05:42 Labs: Laboratory Results - last 24 hr 08/29/24 05:42 WBC 5.7 RBC 3.45 L Hgb 10.0 L Hct 30.2 L MCV 87.5 MCH 29.0 MCHC 33.1 RDW 14.4 Plt Count 217 MPV 10.7 Absolute Nucleated RBC 0.000 Nucleated RBC % (auto) 0.0 Sodium 133 L Potassium 4.5 Chloride 104 Carbon Dioxide 18 L Anion Gap 16 BUN 62 H Creatinine 5.20 H* Estim Creat Clear Calc 13.7 Estimated GFR 11 Random Glucose 96 Calcium 8.4 Microbiology Microbiology Results: Microbiology 08/22/24 14:25 Thoracentesis Fluid Gram Stain - Final 08/22/24 14:25 Thoracentesis Fluid Anaerobic Culture - Final NO GROWTH AFTER 5 DAYS 08/22/24 14:25 Thoracentesis Fluid Body Fluid Culture - Final No growth after 2 days Procedures Date of Service Date of Service: 08/30/24 Assessment & Plan Assessment and plan (1) Uncontrolled hypertension: Status: Acute (2) CKD (chronic kidney disease): Status: Acute Plan Zi has resistant hypertension setting of significant renal artery stenosis status post bilateral stent placement. He has progressive loss of renal function due to ischemic nephropathy. At present no signs or symptoms of uremia or fluid overload. No indication for dialysis yet. Creatinine is marginally better Still close to end stage renal disease. Blood pressure initially elevated. However blood pressure is better controlled The goal at this point is to maintain systolic blood pressure around 140 Avoid hypotension I have reviewed all the medications. Avoid rapidly active intravenous antihypertensive agents. s/p Thoracenthesis No malignant cells identified Time Spent With Patient Time: Total time managing care of this patient today ____ minutes. Progress Note: Quality Stroke Does the patient have a stroke diagnosis?: No
--- NOTE | 2024-08-29 09:42 | P.DS_ITS ---
DS: Providers Provider Date of Service: 08/29/24 Date of admission: 08/20/24 08:36 Date of discharge: 08/29/24 Primary care physician: Michael Chery MD Consults: 08/20/24 08:44 Consult to Nephrology Routine Consulting Provider: [facility] Reason for consultation: CKD 3B Has provider been notified: No 08/20/24 09:07 Consult to Cardiology Routine Consulting Provider: [facility] Reason for consultation: New CHF in backdrop of known CAD Has provider been notified: Yes 08/20/24 17:37 Consult to Wound Care Routine Reason for consultation: Left great toe / BLE 08/25/24 10:53 Consult to Pulmonology Routine Consulting Provider: [facility] Reason for consultation: on going hypoxia, not improving despite treatment DS: Diagnosis Discharge Diagnosis (1) Uncontrolled hypertension: Status: Acute (2) CKD (chronic kidney disease): Status: Acute DS: Summary Hospital Course Hospital Course: from initial hpi: 69-year-old male with longstanding COPD/tobacco abuse, hypertension, COPD, CAD, CKD 3B, and peripheral vascular disease presents with worsening shortness of breath that he can not truly qualify. Patient states that he has smoked since he was 14 and over the last several months he has noticed his breathing is worse and he has approximately 30 lb unintentional weight loss. Patient states earlier this evening he developed a cough that would not respond to his usual therapies; son transported to ER. In the emergency room, BNP was elevated; CTA chest demonstrated bilateral pleural effusions left greater than right with multiple pulmonary nodules. Question infiltrate versus obstructive lesion. hospital course: Patient was admitted for acute on chronic diastolic CHF complicated by acute hypoxic respiratory failure. Was treated with IV Bumex which was then complicated by acute kidney injury on CKD 4. Eventually patient was transitioned to 1 mg p.o. daily of Bumex for maintenance. Creatinine stabilized around 5.5. Oxygen requirement stabilized around 2-3 L. For debility was seen by physical therapy recommended short-term rehab. Patient will be discharged and is expected to require at less than 30 days. For hypertension was continued on Toprol, nifedipine, Aldactone, doxazosin, hydralazine. For left upper extremity swelling this was likely related to previous IV, it significantly improved and there was no DVT seen on imaging. For bilateral pleural effusions which were transudative due to CHF he underwent thoracentesis with improvement. For peripheral vascular disease was continued on dual antiplatelet and statin. Time Attestation Discharge Coordination Time (in mins): 32 Quality: Safe Use of Opioids Does Pt have an Active Cancer Diagnosis on the Problem List?: No Quality: Stroke Does the patient have a stroke diagnosis?: No Physical Exam Vital Signs: Vital Signs: Last Vital Signs Temp 97.7 F 08/29/24 07:31 Pulse 72 08/29/24 07:31 Resp 20 08/29/24 07:31 BP 119/83 08/29/24 07:31 Pulse Ox 92 08/29/24 07:31 O2 Del Method Nasal Cannula 08/29/24 07:31 O2 Flow Rate 4 08/29/24 07:31 BMI result Body Mass Index 21.3 Const: Other: chronically ill appearing s1s2 lungs dim LUE edema noted, improved;no pedal edema AAOx3 DS: Data Data Completed and Pending Completed studies during hospitalization [Text1]: Pending at discharge 08/22/24 13:26 Cytology [PTH] Stat Procedures Bypass Left Femoral Artery to Right Femoral Artery with Synthetic Substitute, Open Approach (11/03/22) Extirpation of Matter from Left Femoral Artery, Open Approach (11/03/22) Extirpation of Matter from Right Femoral Artery, Open Approach (11/03/22) Supplement Left Femoral Artery with Synthetic Substitute, Open Approach (11/03/22) Supplement Right Femoral Artery with Synthetic Substitute, Open Approach (11/03/22) Labs on day of discharge: Laboratory Results - last 24 hr 08/29/24 05:42 WBC 5.7 RBC 3.45 L Hgb 10.0 L Hct 30.2 L MCV 87.5 MCH 29.0 MCHC 33.1 RDW 14.4 Plt Count 217 MPV 10.7 Absolute Nucleated RBC 0.000 Nucleated RBC % (auto) 0.0 Sodium 133 L Potassium 4.5 Chloride 104 Carbon Dioxide 18 L Anion Gap 16 BUN 62 H Creatinine 5.20 H* Estim Creat Clear Calc 13.7 Estimated GFR 11 Random Glucose 96 Calcium 8.4 Discharge Plan Discharge Anticipated Discharge Date/Time: 08/29/24 09:34 Patient Disposition: Xfer SNF Discharge Diagnosis: chf, leslie on ckd 4 Referrals: Po,Michael Garcia MD [Primary Care Provider] - 1 Week Discharge Medications: New bumetanide 1 mg Tablet 1 mg PO DAILY Qty: 0 0RF Protocol: Hold for SBP< HOLD for SBP < : 90 hydralazine 50 mg Tablet 100 mg PO TID Qty: 0 0RF Protocol: Hold for SBP< HOLD for SBP < : 90 cefuroxime axetil 500 mg tablet 500 mg PO BID Qty: 10 0RF azithromycin 500 mg tablet 500 mg PO DAILY 5 Days Qty: 5 0RF Continued spironolactone 25 mg tablet 50 mg PO DAILY Qty: 30 2RF metoprolol succinate 100 mg tablet extended release 24 hr 100 mg PO DAILY Qty: 90 0RF clopidogrel [Plavix] 75 mg tablet 75 mg PO DAILY Qty: 90 1RF aspirin [Adult Aspirin Regimen] 81 mg tablet,delayed release (DR/EC) 81 mg PO DAILY@0600 cyanocobalamin (vitamin B-12) 1,000 mcg capsule 500 mcg PO DAILY@1800 finasteride 5 mg tablet 5 mg PO Q OTHER DAY nifedipine 60 mg tablet extended release 24hr 120 mg PO DAILY 30 Days Qty: 60 6RF terazosin 5 mg capsule 5 mg PO BEDTIME 30 Days Qty: 30 1RF Discharge Orders: Discharge Order (Routine); Ordered 08/29/24 Ordered By: Jin Thomas Diet: Advance to usual diet Activity on Discharge: As tolerated Stand Alone Forms: Patient Portal Discharge page Print Language: German Care Plan Goals: recovery Health Concerns: chf, ckd Plan of Treatment: complete ceftin and azitrho, continue bumex follow closely with nephro Assessment: see above
[2024-08-29 11:15] VITALS: BP 111/74; PULSE 70; RESP 18; TEMP 36.6; O2SAT 92
--- NOTE | 2024-08-29 11:15 | MHC.CM.PN ---
Second IMM given 2/3. Pt is medically cleared for discharge to [facility] at [facility] today, he will transport there via BLS/[facility].
== END 2024-08-29 13:30 | disposition skilled nursing facility (03) | DRG 291 ==
LOC: HO.ED 06:08 → HO.EDOVER 09:38 → HO.IMC 15:34
PROVIDERS: Family Medicine; Physician Assistant Surgical; Admitting Provider Hospitalist; Emergency Provider Emergency Medicine; PCP Internal Medicine; Visit Provider Internal Medicine
DX: I13.0 Hypertensive heart and chronic kidney disease with heart failure and stage 1 through stage 4 chronic kidney disease, or unspecified chronic kidney disease (principal); I50.31 Acute diastolic (congestive) heart failure; J96.01 Acute respiratory failure with hypoxia; J91.8 Pleural effusion in other conditions classified elsewhere; N17.9 Acute kidney failure, unspecified; N18.4 Chronic kidney disease, stage 4 (severe); I1A.0 Resistant hypertension; J43.1 Panlobular emphysema; I25.10 Atherosclerotic heart disease of native coronary artery without angina pectoris; I73.9 Peripheral vascular disease, unspecified; I70.1 Atherosclerosis of renal artery; F17.210 Nicotine dependence, cigarettes, uncomplicated; Z71.6 Tobacco abuse counseling; Z20.822 Contact with and (suspected) exposure to COVID-19; Z95.1 Presence of aortocoronary bypass graft; Z79.02 Long term (current) use of antithrombotics/antiplatelets; Z79.82 Long term (current) use of aspirin; Z79.899 Other long term (current) drug therapy
CPT/HCPCS: 0241U; 32555; 36415; 70450; 71045; 71250; 74176; 80048; 80053; 82042; 82150; 82945; 83615; 83690; 83735; 83880; 83986; 84157; 84484; 85025; 85027; 87070; 87073; 87102; 87116; 87205; 87206; 88112; 88305; 89051; 93005; 93306; 93356; 93971; 97162; 99285; J0360; J0456; J0696; J1644; J1939; J2003; J2405; Q9957

== ENCOUNTER → 2024-08-20 01:39 | Outpatient (BNV) | payer MEDICARE, SELFPAY | PROVIDERS: Admitting Provider Hospitalist; Emergency Provider Emergency Medicine; Visit Provider Internal Medicine Cardiovascular Disease | DX: I35.0 Nonrheumatic aortic (valve) stenosis (principal); I51.7 Cardiomegaly; I34.0 Nonrheumatic mitral (valve) insufficiency; I36.1 Nonrheumatic tricuspid (valve) insufficiency; R94.31 Abnormal electrocardiogram [ECG] [EKG] | CPT/HCPCS: 93010; 93306; 93356 ==

== ENCOUNTER → 2024-08-20 02:05 | Outpatient (BNV) | payer MEDICARE, SELFPAY | PROVIDERS: Visit Provider Radiology Neuroradiology | DX: R41.82 Altered mental status, unspecified (principal); J90 Pleural effusion, not elsewhere classified; J98.11 Atelectasis; J43.2 Centrilobular emphysema; J43.8 Other emphysema; R91.8 Other nonspecific abnormal finding of lung field; N32.89 Other specified disorders of bladder | CPT/HCPCS: 70450; 71045 ==

== ENCOUNTER → 2024-08-20 04:58 | Outpatient (BNV) | payer MEDICARE, SELFPAY | PROVIDERS: Emergency Provider Emergency Medicine; Visit Provider Hospitalist | DX: I10 Essential (primary) hypertension (principal) | CPT/HCPCS: 99232; 99233 ==

== ENCOUNTER 2024-08-20 08:36 | Outpatient (BNV) | payer MEDICARE, SELFPAY | END 2024-08-25 08:32 | PROVIDERS: Admitting Provider Hospitalist; Emergency Provider Emergency Medicine; PCP Internal Medicine; Visit Provider Radiology Diagnostic Radiology | DX: J98.11 Atelectasis (principal); J90 Pleural effusion, not elsewhere classified; J81.0 Acute pulmonary edema | CPT/HCPCS: 71045 ==

== ENCOUNTER 2024-08-20 08:36 | Outpatient (BNV) | payer MEDICARE, SELFPAY | END 2024-08-21 13:51 | PROVIDERS: Admitting Provider Hospitalist; Emergency Provider Emergency Medicine; Visit Provider Radiology Diagnostic Radiology | DX: R22.32 Localized swelling, mass and lump, left upper limb (principal) | CPT/HCPCS: 93971 ==

== ENCOUNTER 2024-08-20 08:36 | Outpatient (BNV) | payer MEDICARE, SELFPAY | END 2024-08-22 14:50 | PROVIDERS: Admitting Provider Hospitalist; Emergency Provider Emergency Medicine; PCP Internal Medicine; Visit Provider Radiology Diagnostic Radiology | DX: J90 Pleural effusion, not elsewhere classified (principal) | CPT/HCPCS: 32555; 71045 ==

== ENCOUNTER 2024-08-20 08:36 | Outpatient (BNV) | payer MEDICARE, SELFPAY | END 2024-08-26 11:11 | PROVIDERS: Admitting Provider Hospitalist; Emergency Provider Emergency Medicine; PCP Internal Medicine; Visit Provider Internal Medicine | DX: R07.9 Chest pain, unspecified (principal) | CPT/HCPCS: 93010 ==

== ENCOUNTER → 2024-08-20 08:36 | Outpatient (BNV) | payer MEDICARE, SELFPAY | PROVIDERS: Admitting Provider Hospitalist; Emergency Provider Emergency Medicine; Visit Provider Internal Medicine Cardiovascular Disease | DX: I10 Essential (primary) hypertension (principal); I50.9 Heart failure, unspecified | CPT/HCPCS: 99222; 99233 ==

== ENCOUNTER → 2024-08-20 08:36 | Outpatient (BNV) | payer MEDICARE, SELFPAY | PROVIDERS: Admitting Provider Hospitalist; Emergency Provider Emergency Medicine; PCP Internal Medicine; Visit Provider Internal Medicine Hypertension Specialist | DX: I12.9 Hypertensive chronic kidney disease with stage 1 through stage 4 chronic kidney disease, or unspecified chronic kidney disease (principal); N18.9 Chronic kidney disease, unspecified | CPT/HCPCS: 99232 ==

== ENCOUNTER → 2024-08-20 08:36 | Outpatient (BNV) | payer MEDICARE, SELFPAY | PROVIDERS: Admitting Provider Hospitalist; Emergency Provider Emergency Medicine; PCP Internal Medicine; Visit Provider Internal Medicine Pulmonary Disease | DX: J43.1 Panlobular emphysema (principal); J96.01 Acute respiratory failure with hypoxia; J90 Pleural effusion, not elsewhere classified | CPT/HCPCS: 99222 ==

== ENCOUNTER → 2024-09-02 11:15 | Outpatient (AMB) | END | disposition home or self-care (01) | CPT/HCPCS: 98016 ==

== ENCOUNTER 2024-09-05 09:04 | Outpatient (REF) | payer MEDICARE, SELFPAY ==
--- NOTE | ~2024-09-05 | US_ITS ---
CLINICAL HISTORY: K55.1 - Chronic vascular disorders of intestine Abdominal Doppler ultrasound. Mesenteric artery Doppler. Comparison: None Findings: Peak systolic velocity within the aorta proximal to the SMA measures 86.9 centimeter/second, distal to SMA measures 80.0 centimeter/second. Elevated celiac artery peak systolic velocities measuring up to 467 centimeter/second on expiration supine position. Elevated proximal SMA peak systolic velocity measures 390 centimeter/second, mid SMA measures 302 centimeter/second, and distal SMA measures 274 centimeter/second. Peak systolic velocity within the inferior mesenteric artery measuring 124 centimeter/second, splenic artery measures 173 centimeter/second, and hepatic artery measures 135 centimeter/second. IMPRESSION: 1. Markedly elevated peak systolic velocities within the celiac artery and SMA concerning for hemodynamically significant stenosis. This document has been electronically signed by: Juan Carlos Yip MD on 09/05/2024 23:08:42
--- NOTE | ~2024-09-05 | US_ITS ---
CLINICAL HISTORY: I70.1 - Atherosclerosis of renal artery US Renal with Doppler Comparison: US - IR STENT RENAL INITIAL - 06/01/24 07:29 EST US/SR - US RENAL DOPPLER - 05/20/24 13:49 EDT Findings: Right kidney normal size and echotexture, 8.2 cm length. No hydronephrosis. Normal color Doppler. Resistive index range between 0.67 and 0.79. No velocities greater than 180 centimeters/second. Left kidney normal size and echotexture, 8.0 cm length. No hydronephrosis. Normal color Doppler. Resistive index range between 0.63 and 0.79. No velocities greater than 180 centimeters/second. Bilateral renal artery stents are suggested. Benign bilateral renal cysts are again noted. Incidental bilateral pleural effusions, [id number]. IMPRESSION: There are no velocities greater than 180 cm/s to suggest hemodynamically significant stenosis. Small bilateral pleural effusions. Benign renal cysts. This document has been electronically signed by: Star Buck MD on 09/05/2024 10:48:35
--- NOTE | ~2024-09-05 | US_ITS ---
CLINICAL HISTORY: I70.1 - Atherosclerosis of renal artery US Renal with Doppler Comparison: US - IR STENT RENAL INITIAL - 06/01/24 07:29 EST US/SR - US RENAL DOPPLER - 05/20/24 13:49 EDT Findings: Right kidney normal size and echotexture, 8.2 cm length. No hydronephrosis. Normal color Doppler. Resistive index range between 0.67 and 0.79. No velocities greater than 180 centimeters/second. Left kidney normal size and echotexture, 8.0 cm length. No hydronephrosis. Normal color Doppler. Resistive index range between 0.63 and 0.79. No velocities greater than 180 centimeters/second. Bilateral renal artery stents are suggested. Benign bilateral renal cysts are again noted. Incidental bilateral pleural effusions, [id number]. IMPRESSION: There are no velocities greater than 180 cm/s to suggest hemodynamically significant stenosis. Small bilateral pleural effusions. Benign renal cysts. This document has been electronically signed by: Star Buck MD on 09/05/2024 10:48:35
== END 2024-09-05 09:05 | disposition home or self-care (01) ==
LOC: HO.US 09:04
PROVIDERS: PCP Internal Medicine; Visit Provider Surgery Vascular Surgery
DX: I70.1 Atherosclerosis of renal artery (principal); K55.1 Chronic vascular disorders of intestine
CPT/HCPCS: 76775; 93975; 93976

== ENCOUNTER → 2024-09-05 09:07 | Outpatient (BNV) | payer MEDICARE, SELFPAY | PROVIDERS: PCP Internal Medicine; Visit Provider Radiology Vascular & Interventional Radiology | DX: I70.1 Atherosclerosis of renal artery (principal) | CPT/HCPCS: 93975 ==

== ENCOUNTER 2024-09-13 10:16 | Outpatient (REF) | payer MEDICARE, SELFPAY ==
--- NOTE | ~2024-09-13 | XR_ITS ---
CLINICAL HISTORY: R06.02 - Shortness of breath Chest Radiographs, 2 views Comparison: CR/SR - XR CHEST 1V - 08/25/24 08:27 EST CR/SR - XR CHEST 1V - 08/22/24 14:[address]/SR - CT CHEST WO IV CON - 08/20/24 04:02 EST Findings: No cardiomegaly. Normal mediastinal contours. No pneumothorax. Interval decrease in interstitial prominence. Small right and moderate-sized left pleural effusions with adjacent opacity which is likely compressive atelectasis. Normal upper abdomen. No acute fracture. Impression: Small right and moderate-sized left pleural effusions. This document has been electronically signed by: Verito De Anda MD on 09/13/2024 13:08:05
[2024-09-13 12:17] LABS: MANUAL DIFF FLAG NO
--- OUTSIDE RECORDS SUMMARY | 2024-09-13 12:47 | XMS_ITS | Clinical Summary ---
Author Organization Unknown Care Team Providers Care Director Of [employer] Name Role Phone PO IMELDATATE, HARMAN Unavailable Unavailnino BARON RN, FABIANA Unavailable Unavailable HILARY PT, ADWOA Unavailable Unavailable DEEDEE RECYCLABLE MATERIALS COLLECTOR, ADWOA Unavailable Unavailable GABIIAMarlon OT, ALFREDO Unavailable Unavailabl e Payers Payer Name Policy Type Policy Number Effective Date Expira tion Date MEDICARE.NGS.PDGM [id number] Problems Condition Name Condition Details Condition Category Status Onset Date Resolution Date Last Treatment Date Treating Clinician Comments PLEURAL EFFUSION, NOT ELSEWHERE CLASSIFIED Active 09-10 00:00: 00 PERIPHERAL VASCULAR DISEASE, UNSPECIFIED Active 09-10 00:00: 00 HYP HRT AND CHR KDNY DIS W HRT FAIL AND STG 1-4/UNSP CHR KDNY Active 09-10 00:00: 00 CHRONIC DIASTOLIC (CONGESTIVE) HEART FAILURE Active 09-10 00:00: 00 CHRONIC KIDNEY DISEASE, STAGE 3B Active 09-10 00:00: 00 ATHSCL HEART DISEASE OF [place] CORONARY ARTERY W/O ANG PCTRS Active 09-10 00:00: 00 CHRONIC OBSTRUCTIVE PULMONARY DISEASE, UNSPECIFIED Active 09-10 00:00: 00 ACUTE KIDNEY FAILURE, UNSPECIFIED Active 09-10 00:00: 00 MUSCLE WASTING AND ATROPHY, NEC, MULTIPLE SITES Active 09-10 00:00: 00 UNSPECIFIED PROTEIN-NATHALY JOCELINE MALNUTRITION Active 09-10 00:00: 00 HYPERLIPIDEM IA, UNSPECIFIED Active 09-10 00:00: 00 NICOTINE DEPENDENCE, UNSPECIFIED, UNCOMPLICATE D Active 09-10 00:00: 00 Allergies, Adverse Reactions, Alerts Allergy Name Allergy Type Status Severity Reaction(s) Onset Date Inactive Date Treating Clinician Comments PENICILLIN G Propensity to adverse reactions Active 09-10 14:59: 02 Vital Signs Vital Name Observation Time Observation Value Commen ts Temperature 2024-09-10 10:43:00.000 99.4 [degF] BMI (%) 2024-09-10 09:48:29.000 19 kg/m2 Height 2024-09-10 09:48:15.000 70 [in_us] Pulse 2024-09-10 10:43:00.000 74 /min O2 Saturation (%) 2024-09-10 10:44:00.000 96 % Respirations 2024-09-10 10:43:00.000 18 /min Weight (lbs) 2024-09-10 09:48:29.000 135 [lb_av] Systolic Blood Pressure 2024-09-10 10:43:00.000 160 mm [Hg] Diastolic Blood Pressure 2024-09-10 10:43:00.000 70 mm [Hg] Plan of Treatment Planned Activity Planned Date Details Comments Future Scheduled Test MEDICATION MANAGEMENT; RN/CRAYON SAWYER/SHIP BOAT OR BARGE MATE TO REVIEW MEDICATIONS FOR INTERACTIONS, EFFECTIVENESS OF DRUG THERAPY, AND SIGNS/SYMPTOMS OF ADVERSE REACTIONS. MAY INSTRUCT AND REINFORCE MEDICATION TEACHING RELATED TO THE USE OF MEDICATIONS, DOSAGE, FREQUENCY, PURPOSE, SIDE EFFECTS, AND TO REPORT COMPLICATIONS. [code = MEDICATION MANAGEMENT; RN/CRAYON SAWYER/SHIP BOAT OR BARGE MATE TO REVIEW MEDICATIONS FOR INTERACTIONS, EFFECTIVENESS OF DRUG THERAPY, AND SIGNS/SYMPTOMS OF ADVERSE REACTIONS. MAY INSTRUCT AND REINFORCE MEDICATION TEACHING RELATED TO THE USE OF MEDICATIONS, DOSAGE, FREQUENCY, PURPOSE, SIDE EFFECTS, AND TO REPORT COMPLICATIONS.] Future Scheduled Test RESPIRATOR Y SYSTEM MANAGEMENT; RN TO ASSESS AND TEACH, CRAYON SAWYER/SHIP BOAT OR BARGE MATE TO OBSERVE AND TEACH RELATED TO ALTERED RESPIRATORY STATUS TO MINIMIZE COMPLICATIONS AND REDUCE HOSPITALIZATION. [code = RESPIRATORY SYSTEM MANAGEMENT; RN TO ASSESS AND TEACH, CRAYON SAWYER/SHIP BOAT OR BARGE MATE TO OBSERVE AND TEACH RELATED TO ALTERED RESPIRATORY STATUS TO MINIMIZE COMPLICATIONS AND REDUCE HOSPITALIZATION.] Future Scheduled Test COPD MANAG EMENT; RN TO ASSESS AND TEACH, CRAYON SAWYER/SHIP BOAT OR BARGE MATE TO OBSERVE AND TEACH SIGNS/SYMPTOMS OF COPD EXACERBATION AND PROVIDE EARLY INTERVENTIONS TO MINIMIZE RISK OF HOSPITALIZATION. RN/CRAYON SAWYER/SHIP BOAT OR BARGE MATE TO INSTRUCT ON SELF-CARE MANAGEMENT INCLUDING BREATHING TECHNIQUES, AIRWAY CLEARANCE, AND PROPER USE OF COPD MEDICATIONS. RN TO ASSESS AND TEACH, CRAYON SAWYER/SHIP BOAT OR BARGE MATE TO OBSERVE AND TEACH PATIENT/CAREGIVER ABILITY TO MONITOR AND RECORD VITAL SIGNS INCLUDING PULSE OXIMETRY AND BLOOD PRESSURE. [code = COPD MANAGEMENT; RN TO ASSESS AND TEACH, CRAYON SAWYER/SHIP BOAT OR BARGE MATE TO OBSERVE AND TEACH SIGNS/SYMPTOMS OF COPD EXACERBATION AND PROVIDE EARLY INTERVENTIONS TO MINIMIZE RISK OF HOSPITALIZATION. RN/CRAYON SAWYER/SHIP BOAT OR BARGE MATE TO INSTRUCT ON SELF-CARE MANAGEMENT INCLUDING BREATHING TECHNIQUES, AIRWAY CLEARANCE, AND PROPER USE OF COPD MEDICATIONS. RN TO ASSESS AND TEACH, CRAYON SAWYER/SHIP BOAT OR BARGE MATE TO OBSERVE AND TEACH PATIENT/CAREGIVER ABILITY TO MONITOR AND RECORD VITAL SIGNS INCLUDING PULSE OXIMETRY AND BLOOD PRESSURE. ] Future Scheduled Test FALL REDUC TION MANAGEMENT; RN TO ASSESS AND OBSERVE, CRAYON SAWYER/SHIP BOAT OR BARGE MATE TO OBSERVE FALL RISK FACTORS AND EDUCATE PATIENT/CAREGIVER ON STRATEGIES TO MINIMIZE THE RISK OF FALLING. [code = FALL REDUCTION MANAGEMENT; RN TO ASSESS AND OBSERVE, CRAYON SAWYER/SHIP BOAT OR BARGE MATE TO OBSERVE FALL RISK FACTORS AND EDUCATE PATIENT/CAREGIVER ON STRATEGIES TO MINIMIZE THE RISK OF FALLING.] Future Scheduled Test GENITOURIN RERE MANAGEMENT; RN TO ASSESS AND TEACH, CRAYON SAWYER/SHIP BOAT OR BARGE MATE TO OBSERVE AND TEACH RELATED TO ALTERED GENITOURINARY STATUS TO MINIMIZE COMPLICATIONS AND REDUCE HOSPITALIZATION. [code = GENITOURINARY MANAGEMENT; RN TO ASSESS AND TEACH, CRAYON SAWYER/SHIP BOAT OR BARGE MATE TO OBSERVE AND TEACH RELATED TO ALTERED GENITOURINARY STATUS TO MINIMIZE COMPLICATIONS AND REDUCE HOSPITALIZATION. ] Future Scheduled Test RN TO OBSE RVE, ASSESS, EVALUATE, AND DEVELOP AN INDIVIDUALIZED PLAN OF CARE. AGENCY MAY ACCEPT ORDERS FROM CONSULTING PHYSICIANS . RN TO OBSERVE AND ASSESS, CRAYON SAWYER/SHIP BOAT OR BARGE MATE TO OBSERVE FOR RISK FOR FALLS AND INSTRUCT IN FALL PREVENTION, HOME SAFETY, MEDICATION MANAGEMENT, INFECTION PREVENTION, AND NUTRITION MANAGEMENT. RN/CRAYON SAWYER/SHIP BOAT OR BARGE MATE NURSE MAY PERFORM O2 SATURATION LEVEL ON ADMISSION AND PRN FOR RN TO ASSESS/CRAYON SAWYER TO OBSERVE PATIENT, WITH NOTIFICATION TO THE PHYSICIAN IF SATURATION IS 90% IN THE ABSENCE OF MORE SPECIFIC PARAMETERS FROM THE PHYSICIAN. AGENCY MAY PERFORM A RESUMPTION OF CARE VISIT FOLLOWING ANY HOSPITAL ADMISSION. RN/CRAYON SAWYER/SHIP BOAT OR BARGE MATE TO MONITOR CO-MORBID CONDITIONS LISTED ON THE PLAN OF CARE AND ANY NEW CONDITIONS THAT PRESENT THEMSELVES DURING THIS EPISODE TO IDENTIFY CHANGES AND INTERVENE TO MINIMIZE COMPLICATIONS. [code = RN TO OBSERVE, ASSESS, EVALUATE, AND DEVELOP AN INDIVIDUALIZED PLAN OF CARE. AGENCY MAY ACCEPT ORDERS FROM CONSULTING PHYSICIANS . RN TO OBSERVE AND ASSESS, CRAYON SAWYER/SHIP BOAT OR BARGE MATE TO OBSERVE FOR RISK FOR FALLS AND INSTRUCT IN FALL PREVENTION, HOME SAFETY, MEDICATION MANAGEMENT, INFECTION PREVENTION, AND NUTRITION MANAGEMENT. RN/CRAYON SAWYER/SHIP BOAT OR BARGE MATE NURSE MAY PERFORM O2 SATURATION LEVEL ON ADMISSION AND PRN FOR RN TO ASSESS/CRAYON SAWYER TO OBSERVE PATIENT, WITH NOTIFICATION TO THE PHYSICIAN IF SATURATION IS 90% IN THE ABSENCE OF MORE SPECIFIC PARAMETERS FROM THE PHYSICIAN. AGENCY MAY PERFORM A RESUMPTION OF CARE VISIT FOLLOWING ANY HOSPITAL ADMISSION. RN/CRAYON SAWYER/SHIP BOAT OR BARGE MATE TO MONITOR CO-MORBID CONDITIONS LISTED ON THE PLAN OF CARE AND ANY NEW CONDITIONS THAT PRESENT THEMSELVES DURING THIS EPISODE TO IDENTIFY CHANGES AND INTERVENE TO MINIMIZE COMPLICATIONS.] Future Scheduled Test PAIN MANAG EMENT; RN TO ASSESS AND TEACH, SHIP BOAT OR BARGE MATE/CRAYON SAWYER TO OBSERVE AND TEACH AND PROVIDE EDUCATION ON PAIN MANAGEMENT TECHNIQUES. [code = PAIN MANAGEMENT; RN TO ASSESS AND TEACH, SHIP BOAT OR BARGE MATE/CRAYON SAWYER TO OBSERVE AND TEACH AND PROVIDE EDUCATION ON PAIN MANAGEMENT TECHNIQUES.] Future Scheduled Test PRN VISITS ; NUMBER OF RN/CRAYON SAWYER/SHIP BOAT OR BARGE MATE VISITS: RN/CRAYON SAWYER/SHIP BOAT OR BARGE MATE TO PERFORM: COMPLETE RESPIRATORY ASSESSMENT FOR THE FOLLOWING REASONS: COPD EXACERBATION [code = PRN VISITS; NUMBER OF RN/CRAYON SAWYER/SHIP BOAT OR BARGE MATE VISITS: RN/CRAYON SAWYER/SHIP BOAT OR BARGE MATE TO PERFORM: COMPLETE RESPIRATORY ASSESSMENT FOR THE FOLLOWING REASONS: COPD EXACERBATION] Future Scheduled Test CARDIOVASC ULAR SYSTEM; RN TO ASSESS/TEACH, CRAYON SAWYER/SHIP BOAT OR BARGE MATE TO OBSERVE/TEACH RELATED TO ALTERED CARDIOVASCULAR STATUS TO MINIMIZE COMPLICATIONS AND REDUCE HOSPITALIZATION. [code = CARDIOVASCULAR SYSTEM; RN TO ASSESS/TEACH, CRAYON SAWYER/SHIP BOAT OR BARGE MATE TO OBSERVE/TEACH RELATED TO ALTERED CARDIOVASCULAR STATUS TO MINIMIZE COMPLICATIONS AND REDUCE HOSPITALIZATION.] Future Scheduled Test HEART FAIL URE; RN TO ASSESS/TEACH, CRAYON SAWYER/SHIP BOAT OR BARGE MATE TO OBSERVE/TEACH CARDIOPULMONARY SYSTEM TO IDENTIFY SIGNS OF DECOMPENSATION AND INTERVENE TO MINIMIZE THE SEVERITY OF FLUID OVERLOAD. OBSERVE PATIENT ABILITY TO MONITOR AND RECORD DAILY WEIGHTS AND VITAL SIGNS, INCLUDING PULSE AND BLOOD PRESSURE; RECORD PATIENT REPORTED WEIGHT, OR WEIGH PATIENT NEEDED. REPORT INCREASED EDEMA OR WEIGHT GAIN OF >2 LBS IN 1 DAY OR >5 LBS IN 1 WEEK OR 5LBS OR MORE OVER TARGET WEIGHT. MAY MEASURE ABDOMINAL GIRTH IF UNABLE TO WEIGH. SCALES AND BP MONITOR TO BE PROVIDED IF NEEDED. [code = HEART FAILURE; RN TO ASSESS/TEACH, CRAYON SAWYER/SHIP BOAT OR BARGE MATE TO OBSERVE/TEACH CARDIOPULMONARY SYSTEM TO IDENTIFY SIGNS OF DECOMPENSATION AND INTERVENE TO MINIMIZE THE SEVERITY OF FLUID OVERLOAD. OBSERVE PATIENT ABILITY TO MONITOR AND RECORD DAILY WEIGHTS AND VITAL SIGNS, INCLUDING PULSE AND BLOOD PRESSURE; RECORD PATIENT REPORTED WEIGHT, OR WEIGH PATIENT NEEDED. REPORT INCREASED EDEMA OR WEIGHT GAIN OF >2 LBS IN 1 DAY OR >5 LBS IN 1 WEEK OR 5LBS OR MORE OVER TARGET WEIGHT. MAY MEASURE ABDOMINAL GIRTH IF UNABLE TO WEIGH. SCALES AND BP MONITOR TO BE PROVIDED IF NEEDED. ] Future Scheduled Test HYPERTENSI ON MANAGEMENT; RN TO ASSESS AND TEACH, CRAYON SAWYER/SHIP BOAT OR BARGE MATE TO OBSERVE AND TEACH WARNING SIGNS AND SYMPTOMS TO AVOID HOSPITALIZATION. [code = HYPERTENSION MANAGEMENT; RN TO ASSESS AND TEACH, CRAYON SAWYER/SHIP BOAT OR BARGE MATE TO OBSERVE AND TEACH WARNING SIGNS AND SYMPTOMS TO AVOID HOSPITALIZATION.] Goal Patient Goal - REDUCED EDEMA . Goal Provider Goal - PATIENT/CAREGIVER TO VERBALIZE, AND CONSISTENTLY DEMONSTRATE EFFECTIVE, SAFE MANAGEMENT OF MEDICATION INCLUDING KNOWLEDGE OF EFFECTIVENESS, POTENTIAL SIDE EFFECTS AND DRUG REACTIONS AND WHEN TO CONTACT THE APPROPRIATE CARE PROVIDER. PATIENT/CAREGIVER WILL BE ABLE TO VERBALIZE UNDERSTANDING OF MEDICATION REGIMEN AND ACCURATELY TAKE MEDICATIONS PRESCRIBED WITHOUT ADVERSE EFFECTS BY END OF EPISODE Goal Provider Goal - PATIENT / CAREGIVER WILL VERBALIZE/DEMONSTRATE UNDERSTANDING OF MEASURES TO MANAGE ALTERED RESPIRATORY STATUS BY END OF EPISODE. Goal Provider Goal - PATIENT / CAREGIVER WILL VERBALIZE/DEMONSTRATE AN ABILITY TO ADHERE TO SELF-MANAGEMENT OF COPD TO MINIMIZE COMPLICATIONS AND AVOID HOSPITALIZATION BY END OF EPISODE. Goal Provider Goal - PATIENT/CAREGIVER WILL VERBALIZE/DEMONSTRATE UNDERSTANDING OF FALL RISK FACTORS AND IMPLEMENT STRATEGIES TO MINIMIZE FALL RISK. PATIENT/CAREGIVER WILL VERBALIZE/DEMONSTRATE AN ABILITY TO ADHERE TO FALL REDUCTION SELF-MANAGEMENT AND LIFE-STYLE CHANGES BY END OF EPISODE Goal Provider Goal - PATIENT / CAREGIVER WILL VERBALIZE/DEMONSTRATE UNDERSTANDING OF MEASURES TO MANAGE ALTERED GENITOURINARY STATUS BY END OF EPISODE. Goal Provider Goal - A PLAN OF CARE WILL BE ESTABLISHED THAT MEETS THE PATIENTS NEEDS. PATIENT WILL DEMONSTRATE OXYGEN SATURATION WITHIN NORMAL LIMITS OR PATIENTS OPTIMAL LEVEL ESTABLISHED BY THE PHYSICIAN THROUGHOUT CARE. CHANGES TO CO-MORBID CONDITIONS AND ANY NEW CONDITIONS WILL BE IDENTIFIED AND REPORTED TO THE PHYSICIAN. Goal Provider Goal - PATIENT / CAREGIVER WILL VERBALIZE / DEMONSTRATE UNDERSTANDING OF PAIN CONTROL MEASURES BY EOE Goal Provider Goal - Goal Provider Goal - PATIENT / CAREGIVER WILL VERBALIZE/DEMONSTRATE UNDERSTANDING OF MEASURES TO MANAGE ALTERED CARDIOVASCULAR STATUS BY END OF EPISODE Goal Provider Goal - PATIENT / CAREGIVER WILL VERBALIZE/DEMONSTRATE AN ABILITY TO ADHERE TO SELF-MANAGEMENT OF HF TO MINIMIZE COMPLICATIONS AND AVOID HOSPITALIZATION BY END OF EPISODE. Goal Provider Goal - PATIENT / CAREGIVER WILL VERBALIZE/DEMONSTRATE AN ABILITY TO ADHERE TO SELF-MANAGEMENT OF HTN TO MINIMIZE COMPLICATIONS AND AVOID HOSPITALIZATION BY END OF EPISODE. Encounters Start Date/Time End Date/Time Encounter Type Admission Type Attending [facility] Facility Care Department Encounter ID Discharge Date Discharge Status Discharge Condition Discharge Reason Percent Goals Met 2024-09-10 00:00:00 2024-11-08 00:00:00 Outpatient NEW ADMISSION FABIANA BARON [facility] [id number] 100.00
--- OUTSIDE RECORDS SUMMARY | 2024-09-13 12:47 | XMS_ITS | Clinical Summary ---
Author Organization Unknown Care Team Providers Care Building Rental Superintendent Name Role Phone PO IMELDATATE, HARMAN Unavailable Unavailnino BARON RN, FABIANA Unavailable Unavailable HILARY PT, ADWOA Unavailable Unavailable DEEDEE CARBON PAPER COATING SUPERVISOR, ADWOA Unavailable Unavailable GABIIAMarlon OT, ALFREDO Unavailable Unavailabl e Payers Payer Name Policy Type Policy Number Effective Date Expira tion Date MEDICARE.NGS.PDGM [id number] Problems Condition Name Condition Details Condition Category [...] 09-10 00:00: 00 ATHSCL HEART DISEASE OF [place] CORONARY ARTERY W/O ANG PCTRS Active 09-10 [...] Details Comments Future Scheduled Test MEDICATION MANAGEMENT; RN/TRANSLATOR DEAF/LOAN ADVISER TO REVIEW MEDICATIONS FOR INTERACTIONS, EFFECTIVENESS OF DRUG THERAPY, AND SIGNS/SYMPTOMS OF ADVERSE REACTIONS. MAY INSTRUCT AND REINFORCE MEDICATION TEACHING RELATED TO THE USE OF MEDICATIONS, DOSAGE, FREQUENCY, PURPOSE, SIDE EFFECTS, AND TO REPORT COMPLICATIONS. [code = MEDICATION MANAGEMENT; RN/TRANSLATOR DEAF/LOAN ADVISER TO REVIEW MEDICATIONS FOR INTERACTIONS, EFFECTIVENESS OF DRUG THERAPY, AND SIGNS/SYMPTOMS OF ADVERSE REACTIONS. MAY INSTRUCT AND REINFORCE MEDICATION TEACHING RELATED TO THE USE OF MEDICATIONS, DOSAGE, FREQUENCY, PURPOSE, SIDE EFFECTS, AND TO REPORT COMPLICATIONS.] Future Scheduled Test RESPIRATOR Y SYSTEM MANAGEMENT; RN TO ASSESS AND TEACH, TRANSLATOR DEAF/LOAN ADVISER TO OBSERVE AND TEACH RELATED TO ALTERED RESPIRATORY STATUS TO MINIMIZE COMPLICATIONS AND REDUCE HOSPITALIZATION. [code = RESPIRATORY SYSTEM MANAGEMENT; RN TO ASSESS AND TEACH, TRANSLATOR DEAF/LOAN ADVISER TO OBSERVE AND TEACH RELATED TO ALTERED RESPIRATORY STATUS TO MINIMIZE COMPLICATIONS AND REDUCE HOSPITALIZATION.] Future Scheduled Test COPD MANAG EMENT; RN TO ASSESS AND TEACH, TRANSLATOR DEAF/LOAN ADVISER TO OBSERVE AND TEACH SIGNS/SYMPTOMS OF COPD EXACERBATION AND PROVIDE EARLY INTERVENTIONS TO MINIMIZE RISK OF HOSPITALIZATION. RN/TRANSLATOR DEAF/LOAN ADVISER TO INSTRUCT ON SELF-CARE MANAGEMENT INCLUDING BREATHING TECHNIQUES, AIRWAY CLEARANCE, AND PROPER USE OF COPD MEDICATIONS. RN TO ASSESS AND TEACH, TRANSLATOR DEAF/LOAN ADVISER TO OBSERVE AND TEACH PATIENT/CAREGIVER ABILITY TO MONITOR AND RECORD VITAL SIGNS INCLUDING PULSE OXIMETRY AND BLOOD PRESSURE. [code = COPD MANAGEMENT; RN TO ASSESS AND TEACH, TRANSLATOR DEAF/LOAN ADVISER TO OBSERVE AND TEACH SIGNS/SYMPTOMS OF COPD EXACERBATION AND PROVIDE EARLY INTERVENTIONS TO MINIMIZE RISK OF HOSPITALIZATION. RN/TRANSLATOR DEAF/LOAN ADVISER TO INSTRUCT ON SELF-CARE MANAGEMENT INCLUDING BREATHING TECHNIQUES, AIRWAY CLEARANCE, AND PROPER USE OF COPD MEDICATIONS. RN TO ASSESS AND TEACH, TRANSLATOR DEAF/LOAN ADVISER TO OBSERVE AND TEACH PATIENT/CAREGIVER ABILITY TO MONITOR AND RECORD VITAL SIGNS INCLUDING PULSE OXIMETRY AND BLOOD PRESSURE. ] Future Scheduled Test FALL REDUC TION MANAGEMENT; RN TO ASSESS AND OBSERVE, TRANSLATOR DEAF/LOAN ADVISER TO OBSERVE FALL RISK FACTORS AND EDUCATE PATIENT/CAREGIVER ON STRATEGIES TO MINIMIZE THE RISK OF FALLING. [code = FALL REDUCTION MANAGEMENT; RN TO ASSESS AND OBSERVE, TRANSLATOR DEAF/LOAN ADVISER TO OBSERVE FALL RISK FACTORS AND EDUCATE PATIENT/CAREGIVER ON STRATEGIES TO MINIMIZE THE RISK OF FALLING.] Future Scheduled Test GENITOURIN RERE MANAGEMENT; RN TO ASSESS AND TEACH, TRANSLATOR DEAF/LOAN ADVISER TO OBSERVE AND TEACH RELATED TO ALTERED GENITOURINARY STATUS TO MINIMIZE COMPLICATIONS AND REDUCE HOSPITALIZATION. [code = GENITOURINARY MANAGEMENT; RN TO ASSESS AND TEACH, TRANSLATOR DEAF/LOAN ADVISER TO OBSERVE AND TEACH RELATED TO ALTERED GENITOURINARY STATUS TO MINIMIZE COMPLICATIONS AND REDUCE HOSPITALIZATION. ] Future Scheduled Test RN TO OBSE RVE, ASSESS, EVALUATE, AND DEVELOP AN INDIVIDUALIZED PLAN OF CARE. AGENCY MAY ACCEPT ORDERS FROM CONSULTING PHYSICIANS . RN TO OBSERVE AND ASSESS, TRANSLATOR DEAF/LOAN ADVISER TO OBSERVE FOR RISK FOR FALLS AND INSTRUCT IN FALL PREVENTION, HOME SAFETY, MEDICATION MANAGEMENT, INFECTION PREVENTION, AND NUTRITION MANAGEMENT. RN/TRANSLATOR DEAF/LOAN ADVISER NURSE MAY PERFORM O2 SATURATION LEVEL ON ADMISSION AND PRN FOR RN TO ASSESS/TRANSLATOR DEAF TO OBSERVE PATIENT, WITH NOTIFICATION TO THE PHYSICIAN IF SATURATION IS 90% IN THE ABSENCE OF MORE SPECIFIC PARAMETERS FROM THE PHYSICIAN. AGENCY MAY PERFORM A RESUMPTION OF CARE VISIT FOLLOWING ANY HOSPITAL ADMISSION. RN/TRANSLATOR DEAF/LOAN ADVISER TO MONITOR CO-MORBID CONDITIONS LISTED ON THE PLAN OF CARE AND ANY NEW CONDITIONS THAT PRESENT THEMSELVES DURING THIS EPISODE TO IDENTIFY CHANGES AND INTERVENE TO MINIMIZE COMPLICATIONS. [code = RN TO OBSERVE, ASSESS, EVALUATE, AND DEVELOP AN INDIVIDUALIZED PLAN OF CARE. AGENCY MAY ACCEPT ORDERS FROM CONSULTING PHYSICIANS . RN TO OBSERVE AND ASSESS, TRANSLATOR DEAF/LOAN ADVISER TO OBSERVE FOR RISK FOR FALLS AND INSTRUCT IN FALL PREVENTION, HOME SAFETY, MEDICATION MANAGEMENT, INFECTION PREVENTION, AND NUTRITION MANAGEMENT. RN/TRANSLATOR DEAF/LOAN ADVISER NURSE MAY PERFORM O2 SATURATION LEVEL ON ADMISSION AND PRN FOR RN TO ASSESS/TRANSLATOR DEAF TO OBSERVE PATIENT, WITH NOTIFICATION TO THE PHYSICIAN IF SATURATION IS 90% IN THE ABSENCE OF MORE SPECIFIC PARAMETERS FROM THE PHYSICIAN. AGENCY MAY PERFORM A RESUMPTION OF CARE VISIT FOLLOWING ANY HOSPITAL ADMISSION. RN/TRANSLATOR DEAF/LOAN ADVISER TO MONITOR CO-MORBID CONDITIONS LISTED ON THE PLAN OF CARE AND ANY NEW CONDITIONS THAT PRESENT THEMSELVES DURING THIS EPISODE TO IDENTIFY CHANGES AND INTERVENE TO MINIMIZE COMPLICATIONS.] Future Scheduled Test PAIN MANAG EMENT; RN TO ASSESS AND TEACH, LOAN ADVISER/TRANSLATOR DEAF TO OBSERVE AND TEACH AND PROVIDE EDUCATION ON PAIN MANAGEMENT TECHNIQUES. [code = PAIN MANAGEMENT; RN TO ASSESS AND TEACH, LOAN ADVISER/TRANSLATOR DEAF TO OBSERVE AND TEACH AND PROVIDE EDUCATION ON PAIN MANAGEMENT TECHNIQUES.] Future Scheduled Test PRN VISITS ; NUMBER OF RN/TRANSLATOR DEAF/LOAN ADVISER VISITS: RN/TRANSLATOR DEAF/LOAN ADVISER TO PERFORM: COMPLETE RESPIRATORY ASSESSMENT FOR THE FOLLOWING REASONS: COPD EXACERBATION [code = PRN VISITS; NUMBER OF RN/TRANSLATOR DEAF/LOAN ADVISER VISITS: RN/TRANSLATOR DEAF/LOAN ADVISER TO PERFORM: COMPLETE RESPIRATORY ASSESSMENT FOR THE FOLLOWING REASONS: COPD EXACERBATION] Future Scheduled Test CARDIOVASC ULAR SYSTEM; RN TO ASSESS/TEACH, TRANSLATOR DEAF/LOAN ADVISER TO OBSERVE/TEACH RELATED TO ALTERED CARDIOVASCULAR STATUS TO MINIMIZE COMPLICATIONS AND REDUCE HOSPITALIZATION. [code = CARDIOVASCULAR SYSTEM; RN TO ASSESS/TEACH, TRANSLATOR DEAF/LOAN ADVISER TO OBSERVE/TEACH RELATED TO ALTERED CARDIOVASCULAR STATUS TO MINIMIZE COMPLICATIONS AND REDUCE HOSPITALIZATION.] Future Scheduled Test HEART FAIL URE; RN TO ASSESS/TEACH, TRANSLATOR DEAF/LOAN ADVISER TO OBSERVE/TEACH CARDIOPULMONARY SYSTEM TO IDENTIFY SIGNS [...] [code = HEART FAILURE; RN TO ASSESS/TEACH, TRANSLATOR DEAF/LOAN ADVISER TO OBSERVE/TEACH CARDIOPULMONARY SYSTEM TO IDENTIFY SIGNS [...] ON MANAGEMENT; RN TO ASSESS AND TEACH, TRANSLATOR DEAF/LOAN ADVISER TO OBSERVE AND TEACH WARNING SIGNS AND SYMPTOMS TO AVOID HOSPITALIZATION. [code = HYPERTENSION MANAGEMENT; RN TO ASSESS AND TEACH, TRANSLATOR DEAF/LOAN ADVISER TO OBSERVE AND TEACH WARNING SIGNS AND [...] End Date/Time Encounter Type Admission Type Attending [facility] Facility Care Department Encounter ID Discharge Date Discharge Status Discharge Condition Discharge Reason Percent Goals Met 2024-09-10 00:00:00 2024-11-08 00:00:00 Outpatient NEW ADMISSION FABIANA BARON [facility] [id number] 100.00
[2024-09-13 13:18] LABS: Basophils Absolute Auto 0.1 X10*3/uL (0.0-0.2); Basophils Percent Auto 0.8 % (0-2); Eosinophils Absolute Auto 0.3 X10*3/uL (0.0-0.4); Eosinophils Percent Auto 4.3 % (0-4); Hematocrit 30.5 % (42.0-52.0); Hemoglobin 9.7 g/dl (14.0-18.0); Imm Gran Abs Auto 0.04 X10*3/uL (0.00-0.03); Imm Gran Pct Auto 0.6 % (0.0-0.4); Lymphocytes Absolute Auto 0.6 X10*3/uL (1.2-4.9); Lymphocytes Percent Auto 9.8 % (20-40); Mean Corpuscular HGB Conc 31.8 g/dl (31.0-36.0); Mean Corpuscular Hemoglobin 28.1 pg (27.0-33.0); Mean Corpuscular Volume 88.4 fL (80.0-98.0); Mean Platelet Volume 9.6 fL (9.4-12.4); Monocytes Absolute Auto 0.7 X10*3/uL (0.1-1.2); Monocytes Percent Auto 10.5 % (2-11); Neutrophils Absolute Auto 4.6 x10*3/uL (2.0-8.3); Platelet Count 316 X10*3/uL (160-400); Red Blood Count 3.45 X10*6/uL (4.60-5.80); Red Cell Distribution Width 14.6 % (11.0-16.0); White Blood Count 6.2 X10*3/uL (4.8-10.8)
[2024-09-13 13:46] LABS: Anion Gap 15 (12-20); Blood Urea Nitrogen 51 mg/dL (9-16); Carbon Dioxide 20 mmol/L (22-29); Chloride 108 mmol/L (96-108); Estimated Glomerular Filt Rate 17; Potassium 3.9 mmol/L (3.3-5.1); Sodium 139 mmol/L (135-145)
== END 2024-09-13 10:17 | disposition home or self-care (01) ==
LOC: HO.XRAY 10:16
PROVIDERS: Internal Medicine Nephrology; PCP Internal Medicine
DX: R06.02 Shortness of breath (principal); I13.0 Hypertensive heart and chronic kidney disease with heart failure and stage 1 through stage 4 chronic kidney disease, or unspecified chronic kidney disease; N18.4 Chronic kidney disease, stage 4 (severe); I50.9 Heart failure, unspecified; D63.1 Anemia in chronic kidney disease; G47.10 Hypersomnia, unspecified; R19.5 Other fecal abnormalities
CPT/HCPCS: 36415; 71046; 80051; 82565; 84520; 85025; 99212

== ENCOUNTER 2024-09-13 10:16 | Outpatient (AMB) | payer SELFPAY ==
--- NOTE | 2024-09-13 10:21 | A.OFFPC_ITS ---
Vital Signs 09/13/24 10:22 Height 6 ft Weight 143 lb 6 oz BMI 19.4 BP 118/78 Blood Pressure Location Rt brachial Position Sitting Pulse 74 Pulse Source Pulse Oximeter Temp 97.1 F Temp Source Temporal Artery Scan Pulse Oximetry (%) 96 Oxygen Delivery Method Room Air Intake Visit Reasons: [facility] 09/09 Intake Note: Patient is here for hospital discharge follow up. Patient was discharged from [facility] on 09/09/24. Reproduction Specialist Required: No Pairer Odds: Present Accompanied by: Son Allergies Penicillins [PCN] Allergy (Intermediate, Verified 09/13/24 10:22) Hives Medication List - Last Reconciled 09/13/24 by Beverly Scott PA-C aspirin (Adult Aspirin Regimen) 81 mg PO DAILY@0600 bumetanide 1 mg See Protocol PO DAILY clopidogrel (Plavix) 75 mg PO DAILY cyanocobalamin (vitamin B-12) 500 mcg PO DAILY@1800 docusate sodium 100 mg PO BID finasteride 5 mg PO Q OTHER DAY hydralazine 100 mg See Protocol PO TID melatonin 3 mg PO BEDTIME PRN metoprolol succinate ER 100 mg PO DAILY nifedipine ER 120 mg (2 x 60 mg) PO DAILY 30 days spironolactone 50 mg (2 x 25 mg) PO DAILY terazosin 5 mg PO BEDTIME 30 days terazosin 1 mg PO DAILY Tobacco use date assessed: 09/13/24 Fall risk assessment: No Falls in past year Last assessed Fall Risk: 09/13/24 Dental Screening Dental Screen Date: 08/03/24 HPI [facility] 09/09 HPI Details 69-year-old male with past medical histo ry of hypertension, COPD, coronary artery disease, hypercholesterolemia, prostate cancer and chronic kidney disease last seen 07/2024 coming in for follow up. In review of the notes, patient was seen in [facility] 08/20/2024 for acute on chronic diastolic CHF complicated by acute hypoxic respiratory failure was treated with IV Bumex which was eventually transitioned to p.o. Patient was evaluated by Physical therapy who recommended short-term rehab. Advised to complete course of Ceftin and azithromycin and continue on Bumex with close follow up with Nephrology. Discharged to [facility] rehab 08/29/2024. Patient was seen by Nephrology 09/02/2024 blood work was ordered as well as renal ultrasound and advised to follow up. Patient presents today with his son. He tells us he continues to have occasional shortness of breath. He ran out of the Bumex and is no longer taking it and was seen by the kidney specialist who did not mentioned whether or not he would like to continue on this medication. He also mentions having dark stools that began last several weeks. [facility] Medical History History of stent insertion of renal artery CKD (chronic kidney disease) Subarachnoid hemorrhage Tubular adenoma COVID-19 vaccination refused History of testicular cancer Peripheral arterial disease Hypercholesterolemia Coronary artery disease Tobacco abuse COPD (chronic obstructive pulmonary disease) Hypertension Surgical History History of surgery Hx of colonoscopy Hx of prostate biopsy History of tonsillectomy History of testicular surgery Family History Father No problems noted. Mother No problems noted. Maternal Grandmother Myocardial infarction Brother In good health Sister In good health Son In good health Son In good health Daughter In good health Sister Diabetes Social History Household Members: Spouse, Significant Other and Family Household Members Other:: 6 Housing: House Are you a primary career services representative to a significant other at home: No Do you presently have visiting nurse or other home services: No Alcohol intake: former Patient Tobacco Use Status: Former Tobacco user Tobacco use type: Cigarette Cigarette Packs Per Day: 0.5 Cigarettes Per Day: 2 Years Smoked: 53 years- 10/PER DAY Packs Per Year: 0 Packs per year/per ci.00 e-Cigarette/Vaping Use: Never Used Second Hand Smoke Exposure: Yes service: No Current occupational status: employed Current occupational exposures/hazards: No Cognitive needs: No Hearing needs: No Vision needs: Yes Questionnaire Thrive Questionnaire Date Thrive assessed: 08/21/24 BIANCA-7 AMB Questionnaire BIANCA-7 Date BIANCA - 7 assessed: 08/03/24 Source: Developed by Drs. Tad Angel, Jennie Nicole, Tello Mendoza and colleagues, with an educational noemi from [employer]. Review of Systems Const Denies body aches, Denies chills, Denies fever(s), Denies headache(s) and Denies poor appetite Eyes Reports no additional complaints ENT Denies dysphagia, Denies dizziness, Denies headache(s) and Denies odynophagia Card Denies chest pain, Denies lightheadedness, Denies dyspnea and Reports dyspnea on exertion Resp Denies cough, Denies dyspnea and Reports dyspnea on exertion GI Denies abdominal pain, Reports melena, Reports constipation, Denies dysphagia, Denies diarrhea, Denies nausea, Denies odynophagia and Denies vomiting Reports no additional complaints Musc Reports no additional complaints and Denies abnormal gait Skin/Breast Reports system reviewed and no additional complaints, except as documented Neuro Denies abnormal gait, Denies dizziness and Denies headache(s) Psych Reports no additional complaints Physical exam (Primary Care) Vital Signs: Last Vital Signs Temp 97.1 F 09/13/24 10:22 Pulse 74 09/13/24 10:22 BP 118/78 09/13/24 10:22 Pulse Ox 96 09/13/24 10:22 Oxygen Delivery Method Room Air 09/13/24 10:22 BMI result Body Mass Index 19.4 Tobacco/Smoking Status: Tobacco use Status Tobacco use date assessed 09/13/24 09/13/24 10:37 Patient Tobacco Use Status Former Tobacco user 09/13/24 10:37 Tobacco use type Cigarette 09/13/24 10:37 e-Cigarette/Vaping Use Never Used 09/13/24 10:37 Thrive Assessment: Date of Thrive Assessment Date Thrive assessed 08/21/24 09/13/24 10:37 Const General: cooperative, healthy appearing, comfortable and no acute distress Orientation/consciousness: patient oriented x3 [facility] Head: Yes normocephalic Ears: hearing grossly normal bilaterally General nose exam: Normal external nose present Eyes General: appearance normal, both eyes and all related structures Conjunctivae: conjunctivae normal Neck Neck: Yes full ROM and Yes no lymphadenopathy Resp Effort & Inspection: normal respiratory effort Auscultation: clear to auscultation bilaterally, no crackles, no rales, no rhonchi and no wheezes Cardio Rate: regular rate Rhythm: regular rhythm Skin General skin exam: no rashes or lesions noted Neuro General: patient oriented x3 Gait exam (Neuro): Normal gait present Extrem General: Yes normal to inspection, Yes full ROM and No edema Psych Affect: normal affect Attitude: cooperative Insight: Good insight present (Psych) Judgement: Good judgement present (Psych) Coding Level of Care Code Est Pt Level 4 (51147) Diagnoses Shortness of breath R06.02 Anemia D64.9 Hypersomnolence G47.10 CKD (chronic kidney disease) stage 4, GFR 15-29 ml/min N18.4 Chronic hypertension I10 Dark stools R19.5 Assessment & Plan Assessment & Plan (1) Shortness of breath: Code(s): R06.02 - Shortness of breath Category: Medical Plan: Patient having continued shortness of breath ordered for chest x-ray for further evaluation. (2) Anemia: Code(s): D64.9 - Anemia, unspecified Category: Medical Plan: Patient found to be anemic on last blood work now complaining of dark stools. Ordered for repeat CBC. Stool guaiac was declined today in the visit. Advised to reach out to GI specialist (3) Hypersomnolence: Code(s): G47.10 - Hypersomnia, unspecified Category: Medical Plan: Patient complaining of for somnolence and inability to sleep soundly. Also complaining of snoring. Ordered for home sleep study for further evaluation. (4) CKD (chronic kidney disease) stage 4, GFR 15-29 ml/min: Code(s): N18.4 - Chronic kidney disease, stage 4 (severe) Category: Medical Plan: Patient having worsening kidney function after IV Bumex. Discussed with Dr. Chery today and given shortness of breath and elevated BNP during hospitalization he is recommending to continue on oral Bumex every other day until follow up with the kidney specialist. (5) Chronic hypertension: Code(s): I10 - Essential (primary) hypertension Category: Medical Plan: Continue on current blood pressure medication. Avoid salt intake and encourage healthy diet and regular exercise. Per last nephrology note patient was not tolerating hydralazine well advised to hold this medication at this time until follow up with the fox raiser. (6) Dark stools: Code(s): R19.5 - Other fecal abnormalities Category: Medical Plan: Patient complaining of dark stools over the last several weeks not on any Pepto- Bismol or iron supplementation. I strongly recommended a stool guaiac in the office today to test for blood in stool which was declined. Ordered for CBC for further evaluation. Likely will need evaluation by GI specialist. Plan This note was constructed using voice recognition software. While every effort has been made to ensure accuracy and middle or intermediate school principal, still areas may have been included sometimes these areas may affect the content or meeting of the given symptoms. Total time spent caring for the patient today was 30 minutes. This includes time spent before the visit reviewing the chart, time spent during the visit, and time spent after the visit and documentation. Orders: Orders Complete Blood Count Auto Diff Today D64.9 - Anemia, unspecified XR chest 2V Today R06.02 - Shortness of breath RT home sleep study Today G47.10 - Hypersomnia, unspecified Referrals Cardiology Referral I50.9 - Heart failure, unspecified Medications: Changed From bumetanide 1 mg See Protocol PO DAILY 0 tabs 0RF To bumetanide by mouth every other day 1 mg See Protocol PO Q OTHER DAY 15 tabs 0RF On Hold hydralazine Hold Comment: Doctor's Order 100 mg See Protocol PO TID 0 tabs 0RF
[2024-09-13 10:22] VITALS: BP 118/78; PULSE 74; TEMP 36.2; O2SAT 96; BMI 19.4
== END 2024-09-13 11:23 | disposition home or self-care (01) ==
PROVIDERS: PCP Internal Medicine
DX: R06.02 Shortness of breath (principal); D64.9 Anemia, unspecified; G47.10 Hypersomnia, unspecified; N18.4 Chronic kidney disease, stage 4 (severe); I12.9 Hypertensive chronic kidney disease with stage 1 through stage 4 chronic kidney disease, or unspecified chronic kidney disease; R19.5 Other fecal abnormalities

== ENCOUNTER → 2024-09-13 11:42 | Outpatient (BNV) | payer MEDICARE, SELFPAY | PROVIDERS: PCP Internal Medicine; Visit Provider Radiology Diagnostic Radiology | DX: J90 Pleural effusion, not elsewhere classified (principal) | CPT/HCPCS: 71046 ==

== ENCOUNTER → 2024-09-19 10:50 | Outpatient (BNVA) | payer MEDICARE, SELFPAY | PROVIDERS: PCP Internal Medicine; Visit Provider Dietitian, Registered | DX: I12.9 Hypertensive chronic kidney disease with stage 1 through stage 4 chronic kidney disease, or unspecified chronic kidney disease (principal); N18.32 Chronic kidney disease, stage 3b; E78.00 Pure hypercholesterolemia, unspecified; Z71.3 Dietary counseling and surveillance | CPT/HCPCS: 97803 ==

== ENCOUNTER → 2024-09-19 10:50 | Outpatient (AMB) | payer MEDICARE, SELFPAY ==
[2024-09-19 11:13] VITALS: BMI 18.9
--- NOTE | 2024-09-19 11:13 | A.OFFVIS_ITS ---
VS Expanded 09/19/24 11:13 Height 6 ft Weight 139 lb 2.1 oz BMI 18.9 Intake Visit Reasons: CKD3 Allergies Penicillins [PCN] Allergy (Intermediate, Verified 09/28/24 11:15) Hives Nutrition Presentation Details: Pt presents for MNT f/u for CKD stage 3 Pt presents with and son during the appt Pt reports his appetite is reducing because the food is not soft enough. and then choosing pastries/sweets which are easier. Wt remains at 139 lbs, Pt reports often feeling cold BS Monitoring Most Recent Diabetes Results: Creatinine 3.63 mg/dL (0.5-1.4) H 09/13/24 Blood Urea Nitrogen 51 mg/dL (9-16) H 09/13/24 Sodium 139 mmol/L (135-145) 09/13/24 Potassium 3.9 mmol/L (3.3-5.1) 09/13/24 Chloride 108 mmol/L (96-108) 09/13/24 Carbon Dioxide 20 mmol/L (22-29) L 09/13/24 Calcium 8.0 mg/dL (8.4-10.2) L 09/05/24 [facility] Medical History History of stent insertion of renal artery CKD (chronic kidney disease) Subarachnoid hemorrhage Tubular adenoma COVID-19 vaccination refused History of testicular cancer Peripheral arterial disease Hypercholesterolemia Coronary artery disease Tobacco abuse COPD (chronic obstructive pulmonary disease) Hypertension Surgical History History of surgery Hx of colonoscopy Hx of prostate biopsy History of tonsillectomy History of testicular surgery Family History Father No problems noted. Mother No problems noted. Maternal Grandmother Myocardial infarction Brother In good health Sister In good health Son In good health Son In good health Daughter In good health Sister Diabetes Social History Household Members: Spouse, Significant Other and Family Household Members Other:: 6 Housing: House Are you a primary direct care supervisor to a significant other at home: No Do you presently have visiting nurse or other home services: No Alcohol intake: former Patient Tobacco Use Status: Former Tobacco user Tobacco use type: Cigarette Cigarette Packs Per Day: 0.5 Cigarettes Per Day: 2 Years Smoked: 53 years- 10/PER DAY e-Cigarette/Vaping Use: Never Used Second Hand Smoke Exposure: Yes service: No Current occupational status: employed Current occupational exposures/hazards: No Cognitive needs: No Hearing needs: No Vision needs: Yes Assessment & Plan Assessment & Plan (1) CKD stage 3b, GFR 30-44 ml/min: Comment: Pt with low appetite, needs soft foods d/t lack of dentures, hx of CAD, HTN, high Chol Code(s): N18.32 - Chronic kidney disease, stage 3b Category: Medical Plan: MAY RECOMMEND NUTRITIONAL SUPPLEMENT: Neprot protein shake related to anemia, prevention f weight gain and CKD stage 3 Wt: 63 Kg ( 07/2023 ),63kg Est kcal needs as per MSJ: 1700 + 500 + to prevent weight loss (40% carb, 30% protein/fat) Est fluid needs as per 25-30 ml/d: 1600- 1900 Est prot per day as per 1 g/kg bw: 63 Recommend fiber intake : 8-10 g per day and gradually increase to 25-28 g per day for women and 35-38 g for men or as tolerated Recommend sodium intake per day : less than 1500 mg less than 2000 mg Educated patient on: ( R = reviewed V = verbalizes understanding N/R = needs review N/A = not applicable * Food sources of carbohydrate, adequate serving sizes and its role in various health conditions: R * Differences between complex carbohydrates a simple carbohydrates, role of fiber in diet: R V N/R * Lean protein sources of foods: R * Differences between types of fats and role in diet (mono on saturated fat fatty acids, saturated fatty acids, trans fats): R V N/R * Food sources of sodium in salt and healthy modifications for heart health in kidney health: R * Vitamins and minerals: R V N/R * Healthy plate method concept: R V N/R * Physical activity: Benefits a precaution: R V N/R * Medications: Resumed hydralazine 100 mg See Protocol PO TID 30 days 180 tabs 0RF Beverly Scott PA-C hydralazine 100 mg See Protocol PO TID 0 tabs 0RF Jin Thomas MD Patient Instructions: Increase on soft foods (rice, cereals, add broth and oil to the protein poultry/lean beef to soften) have applesauce with peanut butter choose cereals (cream of rice/cream of wheat/oatmeal, rice cereals, cheerios with milk Coding Level of Care Code Nutr Indiv Subseq (43734) Diagnoses CKD stage 3b, GFR 30-44 ml/min N18.32 Time Spent (min) 20
== END ==
PROVIDERS: PCP Internal Medicine; Visit Provider Dietitian, Registered
DX: N18.32 Chronic kidney disease, stage 3b (principal)

== ENCOUNTER → 2024-09-26 23:59 | Outpatient (BNV) | payer MEDICARE, SELFPAY | PROVIDERS: PCP Internal Medicine; Visit Provider Internal Medicine | DX: I13.2 Hypertensive heart and chronic kidney disease with heart failure and with stage 5 chronic kidney disease, or end stage renal disease (principal); I50.32 Chronic diastolic (congestive) heart failure; N18.5 Chronic kidney disease, stage 5 | CPT/HCPCS: G0180 ==

== ENCOUNTER 2024-09-27 09:07 | Outpatient (AMB) | payer MEDICARE, SELFPAY ==
--- NOTE | 2024-09-27 09:09 | A.OFFVIS_ITS ---
Intake Visit Reasons: follow up s/p Renal/Mesentaric/Arterial US 08/2024 Intake Note: Patient presents for folllow up renal/arterial us. Having trouble walking. Allergies Penicillins [PCN] Allergy (Intermediate, Verified 09/28/24 11:15) Hives HPI HPI follow up s/p Renal/Mesentaric/Arterial US 08/2024: Details: The patient is a 69-year-old male presenting for a follow-up concerning recent ultrasound findings of the renal and mesenteric arteries. The patient reports a history of weight loss and altered taste and smell, attributed to a prior COVID- 19 infection, affecting his dietary intake. He now presents for follow-up with ultrasound for mesenteric vessels His kidney results remain normal, but he has a history of abdominal discomfort, particularly after meals high in carbohydrates. He has experienced these symptoms since being treated for cancer several years ago. The patient generally eats three meals but in smaller portions and reports ongoing efforts to maintain caloric intake with nutritional shakes. [facility] Medical History History of stent insertion of renal artery CKD (chronic kidney disease) Subarachnoid hemorrhage Tubular adenoma COVID-19 vaccination refused History of testicular cancer Peripheral arterial disease Hypercholesterolemia Coronary artery disease Tobacco abuse COPD (chronic obstructive pulmonary disease) Hypertension Surgical History History of surgery Hx of colonoscopy Hx of prostate biopsy History of tonsillectomy History of testicular surgery Family History Father No problems noted. Mother No problems noted. Maternal Grandmother Myocardial infarction Brother In good health Sister In good health Son In good health Son In good health Daughter In good health Sister Diabetes Social History Household Members: Spouse, Significant Other and Family Household Members Other:: 6 Housing: House Are you a primary career development coordinator/teacher to a significant other at home: No Do you presently have visiting nurse or other home services: No Alcohol intake: former Patient Tobacco Use Status: Former Tobacco user Tobacco use type: Cigarette Cigarette Packs Per Day: 0.5 Cigarettes Per Day: 2 Years Smoked: 53 years- 10/PER DAY e-Cigarette/Vaping Use: Never Used Second Hand Smoke Exposure: Yes service: No Current occupational status: employed Current occupational exposures/hazards: No Cognitive needs: No Hearing needs: No Vision needs: Yes Review of Systems Const All systems reviewed & are unremarkable except as noted in HPI and below Reports no additional complaints ENT Reports Normal hearing present Card Denies chest pain, Denies chest pain at rest, Denies chest pain with activity and Denies pedal edema Resp Denies cough GI Denies abdominal pain Musc Denies abnormal gait, Denies muscle cramps and Denies radiating pain into limb Skin/Breast Denies skin ulcer and Denies wounds Neuro Reports Normal hearing present and Denies abnormal gait Psych Reports no additional complaints Physical Exam Const General: cooperative, healthy appearing and comfortable Orientation/consciousness: oriented to person, oriented to place and oriented to time HEENT Head: Yes normal to inspection Neck Neck: Yes normal visual inspection Carotids: no bruits Chest Chest palpation & inspection: normal inspection of the chest Resp Effort & Inspection: normal respiratory effort and able to speak in complete sentences Auscultation: clear to auscultation bilaterally, no crackles, no rales, no rhonchi and no wheezes Cardio Rate: regular rate Rhythm: regular rhythm Heart sounds: S1 normal heart sound present and S2 normal heart sound present Bruits: no carotid bruits Peripheral pulses: Peripheral pulses 2+ throughout GI Inspection: Yes normal to inspection Skin Wounds: no wounds Hair: normal Neuro General: oriented to person, oriented to place and oriented to time Cranial nerves: Yes CN's II-XII intact bilaterally and Yes Normal hearing present Cognition (Neuro): normal cognition Motor exam (neuro): 5/5 motor strength present throughout Extrem Other: venous exam: No significant superficial varicosities or spider telangiectasias, minimal edema General: No clubbing, No cyanosis and No edema Psych Appearance: grossly normal Mental Status: mental status grossly normal Speech and movement: Normal speech and movement present Results Reviewed Results Reviewed: Noninvasive testing for mesenteric vessels dated 09/05/2024 demonstrates SMA has increased velocities of 390. Celiac has measures of 467. Assessment & Plan Assessment & Plan (1) Chronic mesenteric ischemia: Code(s): K55.1 - Chronic vascular disorders of intestine Category: Medical Plan: I discussed with the patient the findings of the ultrasound tests, explaining that the kidneys appear stable. The significant finding is partial blockage in the mesenteric arteries, particularly the SMA and celiac artery, may be contributing to his abdominal pain. I advised against any immediate procedures like ballooning due to potential risks including progression to renal failure. and emphasized managing symptoms through diet and caloric intake while continuing moderate physical activity. The patient was instructed to return if symptoms worsen, specifically if abdominal pain becomes more severe. A follow-up ultrasound for his lower extremities is planned for nine months' time, at which we will reassess his condition. (2) Peripheral vascular disease: Comment: 03/24/2018 - diagnostic angiogram 11/03/2022 - femoral to femoral bypass Code(s): I73.9 - Peripheral vascular disease, unspecified Category: Medical Plan: Will need surveillance ultrasound in 9 months Plan Patient was informed and verbally consented to the use of an ambient scribe for clinic note documentation during this visit. Orders: Orders US arterial duplex LE BI 9 Months I73.9 - Peripheral vascular disease, unspecified Patient Instructions: - Maintain a balanced diet with high-calorie intake; consider nutritional shakes as supplements. - Monitor and limit high-carbohydrate meals to manage abdominal discomfort. - Aim for gradual increases in physical activity, such as short walks multiple times per day. - Schedule a follow-up ultrasound of the legs in nine months or report sooner if abdominal pain increases. - Continue current medications and report any new symptoms or changes in existing conditions. Coding Level of Care Code Est Pt Level 4 (73518) Complex EM visit Add On G2211 Diagnoses Chronic mesenteric ischemia K55.1 Peripheral vascular disease I73.9
== END 2024-09-27 09:46 | disposition home or self-care (01) ==
PROVIDERS: PCP Internal Medicine; Visit Provider Surgery Vascular Surgery
DX: K55.1 Chronic vascular disorders of intestine (principal); I73.9 Peripheral vascular disease, unspecified
CPT/HCPCS: 99214; G2211

== ENCOUNTER → 2024-09-27 09:07 | Outpatient (BNVA) | payer MEDICARE, SELFPAY | PROVIDERS: PCP Internal Medicine; Visit Provider Surgery Vascular Surgery | DX: K55.1 Chronic vascular disorders of intestine (principal); I73.9 Peripheral vascular disease, unspecified | CPT/HCPCS: 99212 ==

== ENCOUNTER 2024-09-28 11:05 | Outpatient (AMB) | payer MEDICARE, SELFPAY ==
--- NOTE | 2024-09-28 11:11 | HO.NEPHOV ---
Vital Signs 09/28/24 11:15 Height 6 ft Weight 137 lb BMI 18.6 BP 168/70 H Blood Pressure Location Lt brachial Position Sitting Pulse 78 Pulse Source Pulse Oximeter Pulse Oximetry (%) 96 Oxygen Delivery Method Room Air Intake Visit Reasons: CKD-Conf w/son Osvaldo Application Support Lead Required: No Accompanied by: Son Allergies Penicillins [PCN] Allergy (Intermediate, Verified 09/28/24 11:15) Hives HPI Comments Details: 68-year-old man with a history of hypertension and significant vascular disease who had a baseline creatinine about 1.0- 1.2 mg/dL in October of 2022. In June of 2023 creatinine went up to 1.6 with it going upto 1.9 in July and 2.63 in November 2023. He also had been on hydrochlorothiazide 50 mg at that time which was reduced to 25 mg due to hypokalemia.He has a history of testicular cancer and underwent radiation several years ago which he attributes to his vascular disease. He has H/O fem- fem bypass surgery by Dr. Veras. Apparently he had a coronary angiogram in [facility] which was reportedly normal.(I have not seen the results). He has a history of smoking for several years. He continues to smoke cigarettes despite peripheral vascular disease and dyslipidemia.He has no new rash. He was seen in ER for accelerated hypertension & at that time his serum creatinine bumped up to 3.19. Previously CT angiogram of the abdomen in 2021 showed bilateral atherosclerosis disease of renal arteries.He underwent angiography and B/L renal artery stenting. He had taken hydralazine but could not tolerate due to side effects. He recently was admitted for acute on chronic diastolic CHF complicated by acute hypoxic respiratory failure. Was treated with IV Bumex which was then complicated by acute kidney injury on CKD 4. Creatinine stabilized around 5.5 but better now. For peripheral vascular disease was continued on dual antiplatelet and statin. [facility] Medical History History of stent insertion of renal artery CKD (chronic kidney disease) Subarachnoid hemorrhage Tubular adenoma COVID-19 vaccination refused History of testicular cancer Peripheral arterial disease Hypercholesterolemia Coronary artery disease Tobacco abuse COPD (chronic obstructive pulmonary disease) Hypertension Surgical History History of surgery Hx of colonoscopy Hx of prostate biopsy History of tonsillectomy History of testicular surgery Family History Father No problems noted. Mother No problems noted. Maternal Grandmother Myocardial infarction Brother In good health Sister In good health Son In good health Son In good health Daughter In good health Sister Diabetes Social History Household Members: Spouse, Significant Other and Family Household Members Other:: 6 Housing: House Are you a primary youth care specialist to a significant other at home: No Do you presently have visiting nurse or other home services: No Alcohol intake: former Patient Tobacco Use Status: Former Tobacco user Tobacco use type: Cigarette Cigarette Packs Per Day: 0.5 Cigarettes Per Day: 2 Years Smoked: 53 years- 10/PER DAY e-Cigarette/Vaping Use: Never Used Second Hand Smoke Exposure: Yes service: No Current occupational status: employed Current occupational exposures/hazards: No Cognitive needs: No Hearing needs: No Vision needs: Yes Review of Systems Const All systems reviewed & are unremarkable except as noted in HPI and below Physical Exam Vital Signs: Last Vital Signs Pulse 78 09/28/24 11:15 BP 168/70 H 09/28/24 11:15 Pulse Ox 96 09/28/24 11:15 Oxygen Delivery Method Room Air 09/28/24 11:15 BMI result Body Mass Index 18.6 Const General: comfortable and no acute distress Orientation/consciousness: patient oriented x3 HEENT Head: Yes normocephalic Mouth: Normal oral and palatal mucosa present Eyes EOM: EOMs intact bilaterally Neck Neck: Yes supple Resp Auscultation: clear to auscultation bilaterally Cardio Jugular venous distension: no JVD Rate: regular rate GI Palpation (GI): Soft to palpation Auscultation: normal bowel sounds General: Yes no CVA tenderness Back/Spine/Pelvis Back: no CVA tenderness Skin General skin exam: no rashes or lesions noted Neuro General: patient oriented x3 and moves all extremities Extrem General: Yes no pedal edema Results Reviewed Nephrology Results: Hgb 9.7 g/dl (14.0-18.0) L 09/13/24 WBC 6.2 X10*3/uL (4.8-10.8) 09/13/24 Plt Count 316 X10*3/uL (160-400) 09/13/24 Sodium 139 mmol/L (135-145) 09/13/24 Potassium 3.9 mmol/L (3.3-5.1) 09/13/24 Chloride 108 mmol/L (96-108) 09/13/24 Carbon Dioxide 20 mmol/L (22-29) L 09/13/24 BUN 51 mg/dL (9-16) H 09/13/24 Creatinine 3.63 mg/dL (0.5-1.4) H 09/13/24 Calcium 8.0 mg/dL (8.4-10.2) L 09/05/24 Renal US 09/05/24 Assessment & Plan Assessment & Plan (1) CKD (chronic kidney disease) stage 4, GFR 15-29 ml/min: Code(s): N18.4 - Chronic kidney disease, stage 4 (severe) Category: Medical (2) Hypertension: Code(s): I10 - Essential (primary) hypertension Category: Medical Qualifiers: Hypertension type: essential hypertension Qualified Code(s): I10 - Essential (primary) hypertension Plan 69-year-old man with a history of longstanding hypertension dyslipidemia and peripheral vascular disease in the setting of chronic smoking currently has progressive chronic kidney disease, likely from ischemic nephropathy. He is S/P B/L renal artery stenting. His BP has been labile and medications have been adjusted. I started him on Clonidine 0.1 mg bid He avoids NSAID's. I ordered follow up blood work. I discussed about declining renal function and need for renal replacement in the future. Follow up given Medications: New clonidine HCl 0.1 mg PO BID 30 days 60 tabs 3RF Coding Level of Care Code Est Pt Level 4 (79851) Diagnoses CKD (chronic kidney disease) stage 4, GFR 15-29 ml/min N18.4 Essential hypertension I10 Hypertension type: essential hypertension
[2024-09-28 11:15] VITALS: BP 168/70; PULSE 78; O2SAT 96; BMI 18.6
== END 2024-09-28 11:55 | disposition home or self-care (01) ==
PROVIDERS: PCP Internal Medicine; Visit Provider Internal Medicine Nephrology
DX: I12.9 Hypertensive chronic kidney disease with stage 1 through stage 4 chronic kidney disease, or unspecified chronic kidney disease (principal); N18.4 Chronic kidney disease, stage 4 (severe)
CPT/HCPCS: 99214

== ENCOUNTER → 2024-09-28 11:05 | Outpatient (BNVA) | payer MEDICARE, SELFPAY | PROVIDERS: PCP Internal Medicine; Visit Provider Internal Medicine Nephrology | DX: I12.9 Hypertensive chronic kidney disease with stage 1 through stage 4 chronic kidney disease, or unspecified chronic kidney disease (principal); N18.4 Chronic kidney disease, stage 4 (severe) | CPT/HCPCS: 99212 ==

== ENCOUNTER 2024-10-12 10:45 | Outpatient (AMB) | payer MEDICARE, SELFPAY ==
[2024-10-12 11:11] VITALS: BP 154/60; PULSE 60; O2SAT 96; BMI 19.1
--- NOTE | 2024-10-12 11:11 | HO.NEPHOV_ITS ---
Vital Signs 10/12/24 11:11 Height 6 ft Weight 141 lb BMI 19.1 BP 154/60 H Blood Pressure Location Lt brachial Position Sitting Pulse 60 Pulse Source Pulse Oximeter Pulse Oximetry (%) 96 Oxygen Delivery Method Room Air Intake Visit Reasons: 2 weeks fu-[facility] Snap Shearer Required: No Accompanied by: Son Allergies Penicillins [PCN] Allergy (Intermediate, Verified 10/12/24 11:11) Hives HPI Comments Details: 68-year-old man with a history of hypertension and significant vascular disease who had a baseline creatinine about 1.0- 1.2 mg/dL in October of 2022. In June of 2023 creatinine went up to 1.6 with it going upto 1.9 in July and 2.63 in November 2023. He also had been on hydrochlorothiazide 50 mg at that time which was reduced to 25 mg due to hypokalemia.He has a history of testicular cancer and underwent radiation several years ago which he attributes to his vascular disease. He has H/O fem- fem bypass surgery by Dr. Veras. Apparently he had a coronary angiogram in [facility] which was reportedly normal.(I have not seen the results). He has a history of smoking for several years. He continues to smoke cigarettes despite peripheral vascular disease and dyslipidemia.He has no new rash. He was seen in ER for accelerated hypertension & at that time his serum creatinine bumped up to 3.19. Previously CT angiogram of the abdomen in 2021 showed bilateral atherosclerosis disease of renal arteries.He underwent angiography and B/L renal artery stenting. He had taken hydralazine but could not tolerate due to side effects. He recently was admitted for acute on chronic diastolic CHF complicated by acute hypoxic respiratory failure. Was treated with IV Bumex which was then complicated by acute kidney injury on CKD 4. Creatinine stabilized & is better now. For peripheral vascular disease he is continued on dual antiplatelet and statin. [facility] Medical History History of stent insertion of renal artery CKD (chronic kidney disease) Subarachnoid hemorrhage Tubular adenoma COVID-19 vaccination refused History of testicular cancer Peripheral arterial disease Hypercholesterolemia Coronary artery disease Tobacco abuse COPD (chronic obstructive pulmonary disease) Hypertension Surgical History History of surgery Hx of colonoscopy Hx of prostate biopsy History of tonsillectomy History of testicular surgery Family History Father No problems noted. Mother No problems noted. Maternal Grandmother Myocardial infarction Brother In good health Sister In good health Son In good health Son In good health Daughter In good health Sister Diabetes Social History Household Members: Spouse, Significant Other and Family Household Members Other:: 6 Housing: House Are you a primary student career development specialist to a significant other at home: No Do you presently have visiting nurse or other home services: No Alcohol intake: former Patient Tobacco Use Status: Former Tobacco user Tobacco use type: Cigarette Cigarette Packs Per Day: 0.5 Cigarettes Per Day: 2 Years Smoked: 53 years- 10/PER DAY e-Cigarette/Vaping Use: Never Used Second Hand Smoke Exposure: Yes service: No Current occupational status: employed Current occupational exposures/hazards: No Cognitive needs: No Hearing needs: No Vision needs: Yes Review of Systems Const All systems reviewed & are unremarkable except as noted in HPI and below Physical Exam Vital Signs: Last Vital Signs Pulse 60 10/12/24 11:11 BP 154/60 H 10/12/24 11:11 Pulse Ox 96 10/12/24 11:11 Oxygen Delivery Method Room Air 10/12/24 11:11 BMI result Body Mass Index 19.1 Const General: comfortable and no acute distress Orientation/consciousness: patient oriented x3 HEENT Head: Yes normocephalic Mouth: Normal oral and palatal mucosa present Eyes EOM: EOMs intact bilaterally Neck Neck: Yes supple Resp Auscultation: clear to auscultation bilaterally Cardio Jugular venous distension: no JVD Rate: regular rate GI Palpation (GI): Soft to palpation Auscultation: normal bowel sounds General: Yes no CVA tenderness Back/Spine/Pelvis Back: no CVA tenderness Skin General skin exam: no rashes or lesions noted Neuro General: patient oriented x3 and moves all extremities Extrem General: Yes no pedal edema Results Reviewed Nephrology Results: Hgb 9.7 g/dl (14.0-18.0) L 09/13/24 WBC 6.2 X10*3/uL (4.8-10.8) 09/13/24 Plt Count 316 X10*3/uL (160-400) 09/13/24 Sodium 139 mmol/L (135-145) 09/13/24 Potassium 3.9 mmol/L (3.3-5.1) 09/13/24 Chloride 108 mmol/L (96-108) 09/13/24 Carbon Dioxide 20 mmol/L (22-29) L 09/13/24 BUN 51 mg/dL (9-16) H 09/13/24 Creatinine 3.63 mg/dL (0.5-1.4) H 09/13/24 Assessment & Plan Assessment & Plan (1) CKD (chronic kidney disease) stage 4, GFR 15-29 ml/min: Code(s): N18.4 - Chronic kidney disease, stage 4 (severe) Category: Medical (2) Hypertension: Code(s): I10 - Essential (primary) hypertension Category: Medical Qualifiers: Hypertension type: essential hypertension Qualified Code(s): I10 - Essential (primary) hypertension Plan 69-year-old man with a history of longstanding hypertension dyslipidemia and peripheral vascular disease in the setting of chronic smoking currently has progressive chronic kidney disease, likely from ischemic nephropathy. He is S/P B/L renal artery stenting. His BP has been labile and medications have been adjusted with improvement. His Bumex was reduced to every other day. He avoids NSAID's. I ordered follow up blood work. I discussed about declining renal function and need for renal replacement in the future. Follow up given Orders: Orders Creatinine 6 Weeks N18.4 - Chronic kidney disease, stage 4 (severe) Electrolytes 6 Weeks N18.4 - Chronic kidney disease, stage 4 (severe) Ferritin 6 Weeks N18.4 - Chronic kidney disease, stage 4 (severe) IRON PROFILE 6 Weeks N18.4 - Chronic kidney disease, stage 4 (severe) Complete Blood Count Auto Diff 6 Weeks N18.4 - Chronic kidney disease, stage 4 (severe) Blood Urea Nitrogen 6 Weeks N18.4 - Chronic kidney disease, stage 4 (severe) Calcium 6 Weeks N18.4 - Chronic kidney disease, stage 4 (severe) Medications: New bumetanide 1 mg PO DAILY 90 tabs 3RF Coding Level of Care Code Est Pt Level 4 (40868) Diagnoses CKD (chronic kidney disease) stage 4, GFR 15-29 ml/min N18.4 Essential hypertension I10 Hypertension type: essential hypertension
== END 2024-10-12 11:30 | disposition home or self-care (01) ==
LOC: HO.HKA 10:46
PROVIDERS: PCP Internal Medicine; Visit Provider Internal Medicine Nephrology
DX: I12.9 Hypertensive chronic kidney disease with stage 1 through stage 4 chronic kidney disease, or unspecified chronic kidney disease (principal); N18.4 Chronic kidney disease, stage 4 (severe)
CPT/HCPCS: 99214

== ENCOUNTER → 2024-10-12 10:45 | Outpatient (BNVA) | payer MEDICARE, SELFPAY | PROVIDERS: PCP Internal Medicine; Visit Provider Internal Medicine Nephrology | DX: I12.9 Hypertensive chronic kidney disease with stage 1 through stage 4 chronic kidney disease, or unspecified chronic kidney disease (principal); N18.4 Chronic kidney disease, stage 4 (severe) | CPT/HCPCS: 99212 ==

== ENCOUNTER 2024-10-14 10:15 | Outpatient (AMB) | payer MEDICARE, SELFPAY ==
--- NOTE | 2024-10-14 10:22 | A.OFFVIS_ITS ---
Intake Visit Reasons: cysto Intake Note: Pt presents to the office today for a medication follow up. PVR:333mL Allergies Penicillins Adverse Reaction (Intermediate, Verified 11/30/24 10:21) rash HPI Comments Details: Zi is a pleasant male. He is a patient of Dr. Chery. He is seen for the following urologic conditions - prostate cancer - testicular cancer 1993 - XRT - lower urinary tract symptoms Good response from terazosin Open bladder neck Six-month follow-up repeat PSA Prolaris 02/16 recommend active surveillance PSA - 11/18 1.5 Second biopsy 01/1724 grade group 2, low volume disease Histologic type: Acinar adenocarcinoma [place] score: 3+3=6 (H & M), 3+4=7 (J) - 50%, 20%, 65% Grade group: 1 (H &M), 2 (J) Tumor quantitation: Number cores positive: 3 Total number of cores: 13 Periprostatic fat inv.: One focus suspicious for extraprostatic extension (Part J) Seminal vesicle inv.: Not identified Perineural inv.: Present LVI: Not identified MRI shows 20 g prostate, right posterolateral peripheral zone 1.1 cm PI-RADS 4, adjacent 6 mm PI-RADS 4 lesion Prostate cancer - low-grade, low volume diagnosis May 2020 PSA 06/16 3.3, 07/17 1.9, 01/16 3.8, 08/19 3.7, 07/19 1.9 Prostate cancer diagnosed by Dr. Bernal PSA at diagnosis 5.7 free 8% Volume 40 gm Histologic type: Adenocarcinoma, acinar Histologic grade: [place] score: 3 + 3 = 6 Tumor quantitation: Number cores positive: 2 Right lateral - Total number of cores: 12 % of tissue involved: 1-2% of all tissue examined Low-grade, low volume disease Recommendation active surveillance with finasteride PFSH Medical History Renal insufficiency History of stent insertion of renal artery CKD (chronic kidney disease) Subarachnoid hemorrhage Tubular adenoma COVID-19 vaccination refused History of testicular cancer Peripheral arterial disease Hypercholesterolemia Coronary artery disease Tobacco abuse COPD (chronic obstructive pulmonary disease) Hypertension Surgical History History of surgery Hx of colonoscopy Hx of prostate biopsy History of tonsillectomy History of testicular surgery Family History Father No problems noted. Mother No problems noted. Maternal Grandmother Myocardial infarction Brother In good health Sister In good health Son In good health Son In good health Daughter In good health Sister Diabetes Social History Household Members: Spouse, Significant Other and Family Household Members Other:: 6 Housing: House Are you a primary long term care pharmacist to a significant other at home: No Do you presently have visiting nurse or other home services: No Alcohol intake: former Patient Tobacco Use Status: Former Tobacco user Tobacco use type: Cigarette Cigarette Packs Per Day: 0.5 Cigarettes Per Day: 2 Years Smoked: 53 years- 10/PER DAY stopped smoking 07/2024 e-Cigarette/Vaping Use: Never Used Second Hand Smoke Exposure: Yes service: No Current occupational status: employed Current occupational exposures/hazards: No Cognitive needs: No Hearing needs: No Vision needs: Yes Office Procedures Post Void Residual Post Residual Void Post Void Residual (PVR): [id number] Void Residual by ultrasound Assessment & Plan Assessment & Plan (1) Prostate cancer: Comment: 12/2023 biopsy Code(s): C61 - Malignant neoplasm of prostate Category: Medical (2) Weak urinary stream: Code(s): R39.12 - Poor urinary stream Category: Medical (3) Nocturia more than twice per night: Code(s): R35.1 - Nocturia Category: Medical Plan Six-month follow-up PSA Orders: Orders AMB Post Void Residual by ultrasound 10/14/24 R39.12 - Poor urinary stream Patient Instructions: This note is constructed using voice recognition software. While every effort has been made to ensure accuracy assistant teaching professor errors may have been included. Imaging studies, laboratory and physical exam results were discussed and reviewed in detail. No major barriers to patient understanding were identified. An opportunity to ask questions regarding the treatment plan was provided. All questions were answered. The patient expressed understanding and agreement with the above treatment plan. The patient is aware they should contact our office by phone for worsening of their current condition or the appearance of new urologic symptoms. Compliance is encouraged with any medications and followup testing that is ordered. It is a privilege to participate in the urologic care of your patient. If you have any questions or concerns regarding treatment for the above conditions, or other urologic issues, please do not hesitate to contact me. The office telephone contact is [phone]. Sincerely, Dr Alberto Bernal MD, [facility] - Urology Compassionate Specialist Care for the Genitourinary System Coding Level of Care Code Est Pt Level 3 (27325) Complex EM visit Add On G2211 Diagnoses Prostate cancer C61 Weak urinary stream R39.12 Nocturia more than twice per night R35.1 CPT Codes Post Residual Void - PVR CPT Code: 15995-Bueg Void Residual by ultrasound ([id number])
== END 2024-10-14 10:49 | disposition home or self-care (01) ==
PROVIDERS: PCP Internal Medicine; Visit Provider Urology
DX: C61 Malignant neoplasm of prostate (principal); R39.12 Poor urinary stream; R35.1 Nocturia
CPT/HCPCS: 99213; G2211

== ENCOUNTER → 2024-10-14 10:15 | Outpatient (BNVA) | payer MEDICARE, SELFPAY | PROVIDERS: PCP Internal Medicine; Visit Provider Urology | DX: C61 Malignant neoplasm of prostate (principal); R39.12 Poor urinary stream; R35.1 Nocturia | CPT/HCPCS: 51798; 99212 ==

== ENCOUNTER 2024-11-17 09:57 | Outpatient (AMB) | payer MEDICARE, SELFPAY ==
--- NOTE | 2024-11-17 10:25 | A.OFFVIS_ITS ---
Intake Vital Signs 11/17/24 10:30 Height 6 ft Weight 137 lb BMI 18.6 BP 162/80 H Blood Pressure Location Lt brachial Position Sitting Pulse 68 Pulse Source Pulse Oximeter Temp 97.3 F Temp Source Temporal Artery Scan Pulse Oximetry (%) 98 Oxygen Delivery Method Room Air Intake Visit Reasons: [facility] [employer] Attendant Required: No Accompanied by: Son Allergies Penicillins Adverse Reaction (Intermediate, Verified 11/17/24 11:02) rash Medication List - Last Reconciled 11/17/24 by Michael Chery MD aspirin (Adult Aspirin Regimen) 81 mg PO DAILY@0600 bumetanide 1 mg PO DAILY clonidine HCl 0.1 mg PO BID clopidogrel (Plavix) 75 mg PO DAILY cyanocobalamin (vitamin B-12) 500 mcg PO DAILY@1800 hydralazine 100 mg See Protocol PO BID metoprolol succinate ER 100 mg PO DAILY nifedipine ER 120 mg (2 x 60 mg) PO DAILY 30 days spironolactone 50 mg PO DAILY terazosin 5 mg PO BEDTIME 90 days [facility] Medical History (Updated 11/17/24 @ 10:42 by Michael Chery MD) Renal insufficiency History of stent insertion of renal artery CKD (chronic kidney disease) Subarachnoid hemorrhage Tubular adenoma COVID-19 vaccination refused History of testicular cancer Peripheral arterial disease Hypercholesterolemia Coronary artery disease Tobacco abuse COPD (chronic obstructive pulmonary disease) Hypertension Surgical History History of surgery Hx of colonoscopy Hx of prostate biopsy History of tonsillectomy History of testicular surgery Family History Father No problems noted. Mother No problems noted. Maternal Grandmother Myocardial infarction Brother In good health Sister In good health Son In good health Son In good health Daughter In good health Sister Diabetes Social History (Updated 11/17/24 @ 11:05 by Michael Chery MD) Household Members: Spouse, Significant Other and Family Household Members Other:: 6 Housing: House Are you a primary care consultant to a significant other at home: No Do you presently have visiting nurse or other home services: No Alcohol intake: former Patient Tobacco Use Status: Former Tobacco user Tobacco use type: Cigarette Cigarette Packs Per Day: 0.5 Cigarettes Per Day: 2 Years Smoked: 53 years- 10/PER DAY stopped smoking 07/2024 e-Cigarette/Vaping Use: Never Used Second Hand Smoke Exposure: Yes service: No Current occupational status: employed Current occupational exposures/hazards: No Cognitive needs: No Hearing needs: No Vision needs: Yes Questionnaire Medicare Wellness Checkup [age] What gender do you identify with?: male During the past 4 weeks, how much have you been bothered by emotional problems such as feeling anxious, depressed, irritable, sad or downhearted, and blue?: slightly During the past 4 weeks, has your physical & emotional health limited your social activities with family, friends, neighbors, or groups?: slightly During the past 4 weeks, how much bodily pain have you generally had?: mild pain During the past 4 weeks, was someone available to help you if you needed & wanted help?: yes, a little During the past 4 weeks, what was the hardest physical activity you could do for at least 2 minutes?: moderate Can you get to places out of walking distance without help? (For eg., can you travel alone on buses, taxis or drive your car?): Yes Can you go shopping for groceries or clothes without someone's help?: Yes Can you prepare your own meals?: Yes Can you do your housework without help?: Yes Because of any health problems, do you need the help of another person with your personal care needs such as eating, bathing, dressing or getting around the house?: No Can you handle your own money without help?: Yes During the past 4 weeks, how would you rate your health in general?: fair During the past 4 weeks how have things been going for you?: pretty well Are you having difficulties driving your car?: no Do you always fasten your seat belt when you are in a car?: yes, usually During past 4 weeks, have you been bothered by the following: never: Falling or dizzy when standing up and Problems using the telephone? and sometimes: Sexual problems?, Trouble eating well?, Teeth or denture problems? and Tiredness or fatigue? Have you fallen 2 or more times in the past year?: No Are you afraid of falling?: No Are you a smoker?: no During the past 4 weeks, how many drinks of wine, beer, or other alcoholic beverages did you have?: no alcohol at all Do you exercise for about 20 minutes 3 or more times a week?: no, I usually do not exercise this much Have you been given information to help with the following?: yes: Keeping track of your medications? and no: Hazards in your house that might hurt you? How often do you have trouble taking medicines the way you have been told to take them?: I always take medicine as prescribed How confident are you that you can control & manage most of your health problems?: somewhat confident What is your race?: White PHQ-9 Over the last 2 weeks, how often have you been bothered by any of the following problems? 2. Feeling down, depressed, or hopeless: not at all 3. Trouble falling or staying asleep, or sleeping too much: several days 4. Feeling tired or having little energy: several days 5. Poor appetite or overeating: several days 6. Feeling bad about yourself - or that you are a failure or have let yourself or your family down: more than half the days 7. Trouble concentrating on things, such as reading the newspaper or watching television: more than half the days 8. Moving or speaking so slowly that other people could have noticed. Or the opposite - being so fidgety or restless that you have been moving around a lot more than usual: not at all 9. Thoughts that you would be better off or of hurting yourself in some way: not at all Source: Developed by Drs. Tad Angel, Jennie Nicole, Tello Mendoza and colleagues, with an educational noemi from [employer]. Review of Systems Const Denies poor appetite and Denies weakness Eyes Denies no additional complaints ENT Reports Normal hearing present, Denies dizziness, Denies nasal congestion, Denies tinnitus and Denies sore throat Card Denies chest pain, Denies syncope, Denies rapid heart rate and Denies dyspnea Resp Denies cough and Denies dyspnea GI Denies change in stool character, Reports constipation, Denies diarrhea, Denies nausea and Denies vomiting Denies dysuria and Denies urinary frequency Neuro Reports Normal hearing present, Denies confusion, Denies dizziness, Denies syncope and Denies weakness Psych Denies confusion Physical Exam Vital Signs: Last Vital Signs Temp 97.3 F 11/17/24 10:30 Pulse 68 11/17/24 10:30 BP 162/80 H 11/17/24 10:30 Pulse Ox 98 11/17/24 10:30 Oxygen Delivery Method Room Air 11/17/24 10:30 BMI result Body Mass Index 18.6 Const General: No confusion Orientation/consciousness: No confusion HEENT Other: Impacted cerumen bilateral Head: Yes normocephalic Ears: external ears normal Face and sinus: Yes normal facial exam Mouth: moist mucous membranes Throat: Yes tonsils normal Eyes Conjunctivae: conjunctivae normal Pupils: Equal, round and reactive pupils present and Pupil accommodation reflex normal Direct Ophthalmoscopy: normal light reflex Neck Neck: No lymphadenopathy Thyroid: Thyroid normal Chest Chest palpation & inspection: normal inspection of the chest Resp Effort & Inspection: normal respiratory effort and no audible wheezes Auscultation: clear to auscultation bilaterally, no crackles, no wheezes and lung sounds not diminished Cardio Rate: regular rate Rhythm: regular rhythm Peripheral pulses: radial pulses present and dorsalis pedis present GI Palpation (GI): no masses Auscultation: normal bowel sounds and normoactive bowel sounds Rectal Exam - Male: Yes deferred Skin General skin exam: no rashes or lesions noted Rashes: no rashes Neuro General: No confusion Cranial nerves: Yes Equal, round and reactive pupils present and Yes Normal he aring present Cognition (Neuro): normal cognition Gait exam (Neuro): Normal gait present Motor exam (neuro): 5/5 motor strength present throughout Deep tendon reflexes (DTR's): Right brachioradialis reflex intensity grade: 2+, Left brachioradialis reflex intensity grade: 2+, Right patellar reflex intensity grade: 2+ and Left patellar reflex intensity grade: 2+ Extrem General: No edema Office Procedures Cerumen Removal From which ear canal was the cerumen removed: bilateral Removal: irrigation, otoscope w/curette, cerumen loop/spoon and other Notes: patient tolerated procedure well, no complications and ear canal clear [id number] Irrigation/Lavage Assessment & Plan Assessment & Plan (1) Medicare annual wellness visit, subsequent: Code(s): Z00.00 - Encounter for general adult medical examination without abnormal findings Plan: Patient is advised to eat healthy, keep well hydrated, keep active and have adequate sleep. (2) CKD (chronic kidney disease) stage 4, GFR 15-29 ml/min: Code(s): N18.4 - Chronic kidney disease, stage 4 (severe) Plan: Patient has continued follow-up by the Nephrology will need follow-up blood work (3) Chronic hypertension: Code(s): I10 - Essential (primary) hypertension Plan: Patient has been placed on clonidine 0.1 mg twice a day, metoprolol 100 mg once a day nifedipine 120 mg once a day spironolactone. (4) Anemia: Code(s): D64.9 - Anemia, unspecified Plan: Continuing to monitor (5) New onset of congestive heart failure: Code(s): I50.9 - Heart failure, unspecified Plan: Patient on spironolactone Bumex, weigh daily (6) Coronary artery disease: Comment: saw [facility] pre-femoral/femoral bypass surgery 2022-sees PCP Dr. Chery & Dr. Veras-vascular Code(s): I25.10 - Atherosclerotic heart disease of [place] coronary artery without angina pectoris Qualifiers: Coronary Disease-Associated Artery/Lesion type: [place] artery [place] vs. transplanted heart: [place] heart Associated angina: without angina Qualified Code(s): I25.10 - Atherosclerotic heart disease of [place] coronary artery without angina pectoris Plan: Control the cholesterol, weight, blood pressure strongly advised to stop smoking. (7) Tobacco abuse: Code(s): Z72.0 - Tobacco use Plan: Strongly advised to stop smoking (8) COPD (chronic obstructive pulmonary disease): Code(s): J44.9 - Chronic obstructive pulmonary disease, unspecified Qualifiers: COPD type: emphysema Emphysema type: panlobular Qualified Code(s): J43.1 - Panlobular emphysema Plan: Stable (9) Hypertension: Code(s): I10 - Essential (primary) hypertension Qualifiers: Hypertension type: essential hypertension Qualified Code(s): I10 - Essential (primary) hypertension Plan: Continue with blood pressure medication. Decrease salt intake and exercise patient is on clonidine, metoprolol, nifedipine and spironolactone (10) Peripheral arterial disease: Comment: Right leg severe February 2019 status post femoral bypass Code(s): I73.9 - Peripheral vascular disease, unspecified Plan: Continue to follow-up with vascular (11) Impacted cerumen of both ears: Code(s): H61.23 - Impacted cerumen, bilateral Plan: irrigation done and TM intact bilateral Plan History of Present Illness The patient is a 69-year-old male presenting for an annual wellness examination. He has a comprehensive medical history, including essential hypertension, ch ronic obstructive pulmonary disease, coronary artery disease, and hypercholesterolemia. He has a history of prostate cancer diagnosed in December 2023, and peripheral vascular disease with status post femoral bypass. Notably, he experienced bilateral renal artery stenting and had difficulty tolerating hydralazine, though this medication was recently reintroduced. The patient has chronic kidney disease, with recent lab results showing a creatinine level of 3.63 and a BUN of 51. He experienced congestive heart failure with bilateral pleural effusions noted on a prior CT scan. Anemia was identified on recent bloodwork, with a hemoglobin of 9.7 and hematocrit of 30.5. He recounts challenges in blood pressure management, despite a regimen including Bumex, Toprol, nifedipine, aldactone, and newly reintroduced hydralazine. He reports recent hospital admission in July for shortness of breath, where a CTA of the chest revealed bilateral pleural effusions and multiple pulmonary nodules. In addition, he complains of generalized itchiness post-discharge, with no associated rash. Recently, the patient reports being stable with his blood pressure but experiences intermittent chest heaviness and is prompted by recent changes in activity levels and functional status with the use of a walker due to back pain and reduced exercise tolerance. Health Maintenance - Encouraged discontinuation of smoking for cardiovascular risk reduction. - Scheduled follow-up with nephrology for kidney function monitoring and to address hypertension management. - Emphasized dietary modifications focusing on a plant-based diet to optimize cardiovascular health and aid in weight management. - Recommended continuation of current medication regimen with focus on avoiding NSAID use to preserve renal function. - Referral for surveillance arterial duplex imaging of the lower extremities as part of peripheral vascular disease management. - Monitoring prostate-specific antigen (PSA) levels given history of prostate cancer. Social History - Ex-smoker, ceased smoking in July. - Uses a walker for ambulation due to reduced exercise tolerance and back soreness. - Limited functional status, expressing difficulty with standing for prolonged periods. - Consumes a diet consisting largely of plant-based meals. - Resides with his family, with support from a girlfriend who assists with dietary management. Review of Systems - Respiratory: Reports shortness of breath and previously noted pleural effusions, denies current cough. - Cardiovascular: Reports chest heaviness, denies palpitations. - Genitourinary: History of prostate issues, currently stable. - Integumentary: Reports generalized itchiness, denies rash. - Musculoskeletal: Denies falls, reports uses a walker for long distances. - Neurological: Denies dizziness. - General: Reports fatigue. Physical Exam General: Cooperative, underweight male, healthy appearing, comfortable, no acute distress Orientation: Patient oriented x3 Limitations: Limited walking ability, cannot stand for long periods, uses a walker for long distances Head: Normal to inspection Ears: Hearing impaired, feels plugged, attempted flushing with drops Nose: Normal external nose present Face and sinus: Normal facial exam Eyes: Appearance normal, both eyes and all related structures, has cataracts, left worse than right Neck: Normal visual inspection and Yes full ROM Respiratory: Normal respiratory effort, able to speak in complete sentences, bilateral pleural effusions noted, left greater than right, multiple pulmonary nodules Cardiovascular: Regular rate and rhythm, normal S1 and S2, mild left ventricular with impaired relaxation, elevated right atrial pressure GI: Normal to inspection, soft to palpation, nontender, bowel movements vary from tight to loose Skin: No rashes or lesions noted, patient reports itchiness, multiple moles, no emergent black moles Neuro: Patient oriented x3 Extremities: Normal to inspection, limited mobility, uses a walker for long distances Results - Labs: August bloodwork showed anemia (Hb 9.7, Hct 30.5), creatinine 3.63, BUN 51. - Imaging: Previous CTA chest showed bilateral pleural effusions, multiple pulmonary nodules consistent with congestive heart failure. Plan For hypertension management, the patient is on a regimen of Bumex, Toprol, nifedipine, and spironolactone, with hydralazine reintroduced. He will continue follow-up with nephrology for close monitoring of renal function and medication adjustments. Dietary modifications toward plant-based intake are encouraged due to the benefits on cardiovascular and renal health. The patient is to continue avoiding NSAIDs. He has successfully stopped smoking since July, reducing his cardiovascular risk. Surveillance for peripheral vascular disease will be continued, and monitoring for colon adenomas remains per protocol. Ensuring adequate communication among specialists including urology, nephrology, and vascular medicine will support comprehensive care efforts. Patient was informed and verbally consented to the use of an ambient scribe for clinic note documentation during this visit. Discussion Notes We discussed the complexity and importance of effectively managing the patient's hypertension and heart failure status post-renal function consideration. I elucidated the risks of inadequate blood pressure control including implications for cardiovascular and renal health and presented a comprehensive management plan. The patient's medication regimen was reviewed in detail, focusing on adherence and necessary adjustments. We emphasized the impact of lifestyle modifications, specifically smoking cessation and dietary changes. Engagement with his multidisciplinary team, including nephrology, urology, and captain of guards, will persist as a priority for optimal coordination of care. The kidney function and blood pressure targets were set concerning his comorbid conditions, with follow-up strategies to ascertain stabilization. The risks and benefits of ongoing medication were explained, with attention to the trajectory of his health status. Anticipatory guidance included recognizing signs requiring prompt medical attention and the resultant importance of regular monitoring of his chronic conditions. Patient Instructions - Continue taking prescribed medications and follow the dosing schedule precisely. - Monitor blood pressure regularly, and report significant changes or concerns. - Maintain a diet primarily consisting of plant-based foods, decreasing animal proteins and avoiding NSAIDs. - Refrain from smoking to continue benefiting cardiovascular health. - Stay active with exercises permissible within current health limits. - Ensure timely follow-ups with nephrology and other specialists involved in care. - Look for any changes in your condition and seek medical attention if symptoms escalate. - Use lotion regularly to alleviate skin itchiness. - Adhere to scheduled blood work appointments as instructed. Orders: Orders Complete Blood Count Auto Diff Today Michael Chery MD I10 - Essential (primary) hypertension Comprehensive Met. Panel Today Michael Chery MD I10 - Essential (primary) hypertension Vitamin B12 and Folate Today Michael Chery MD I10 - Essential (primary) hypertension Lipid Panel Today Michael Chery MD E78.00 - Pure hypercholesterolemia, unspecified, I10 - Essential (primary) hypertension Vitamin D 25-OH Total Today Micheal Chery MD I10 - Essential (primary) hypertension B Type Natriuretic Peptide Today Michael Chery MD I10 - Essential (primary) hypertension Free T4 (Free Thyroxine) Today MD Deanna Adorno0 - Essential (primary) hypertension Thyroid Stimulating Hormone Today Michael Chery MD I10 - Essential (primary) hypertension Ferritin Today Michael Chery MD I10 - Essential (primary) hypertension IRON PROFILE Today Michael Chery MD I10 - Essential (primary) hypertension Prostate Specific Antigen Scr Today Michael Chery MD I10 - Essential (primary) hypertension Reticulocyte Count Today Michael Chery MD I10 - Essential (primary) hypertension UA CC w/rflx Micro + Cult Today Michael Chery MD I10 - Essential (primary) hypertension, R30.0 - Dysuria Medications: New spironolactone 50 mg PO DAILY 90 tabs 3RF Michael Chery MD I10 - Essential (primary) hypertension [id number] 3.5-10,000-1 mg/mL-unit/mL-% each ear 3 drps otic (ears) Q8H 5 days 10 mL 0RF Michael Chery MD H60.90 - Unspecified otitis externa, unspecified ear, I10 - Essential (primary) hypertension Changed From hydralazine 100 mg See Protocol PO TID 30 days 180 tabs 0RF To hydralazine 100 mg See Protocol PO BID Beverly Scott PA-C Coding Level of Care Code Medicare Subsequent (G0439) Est Pt Level 3 (84569) Diagnoses Medicare annual wellness visit, subsequent Z00.00 CKD (chronic kidney disease) stage 4, GFR 15-29 ml/min N18.4 Chronic hypertension I10 Anemia D64.9 New onset of congestive heart failure I50.9 Coronary artery disease involving [place] coronary artery of [place] heart without angina pectoris I25.10 Coronary Disease-Associated Artery/Lesion type: [place] artery [place] vs. transplanted heart: [place] heart Associated angina: without angina Tobacco abuse Z72.0 Panlobular emphysema J43.1 COPD type: emphysema Emphysema type: panlobular Essential hypertension I10 Hypertension type: essential hypertension Peripheral arterial disease I73.9 Impacted cerumen of both ears H61.23 CPT Codes Office Procedure - CPT: 39004-[facility] Irrigation/Lavage ([id number])
[2024-11-17 10:30] VITALS: BP 162/80; PULSE 68; TEMP 36.3; O2SAT 98; BMI 18.6
== END 2024-11-17 12:00 | disposition home or self-care (01) ==
PROVIDERS: PCP Internal Medicine; Visit Provider Internal Medicine
DX: Z00.00 Encounter for general adult medical examination without abnormal findings (principal); I13.10 Hypertensive heart and chronic kidney disease without heart failure, with stage 1 through stage 4 chronic kidney disease, or unspecified chronic kidney disease; N18.4 Chronic kidney disease, stage 4 (severe); I50.9 Heart failure, unspecified; J43.1 Panlobular emphysema; I73.9 Peripheral vascular disease, unspecified; D64.9 Anemia, unspecified; I25.10 Atherosclerotic heart disease of native coronary artery without angina pectoris; Z72.0 Tobacco use; H61.23 Impacted cerumen, bilateral

== ENCOUNTER → 2024-11-17 09:57 | Outpatient (BNVA) | payer MEDICARE, SELFPAY | PROVIDERS: PCP Internal Medicine; Visit Provider Internal Medicine | DX: Z00.01 Encounter for general adult medical examination with abnormal findings (principal); H61.23 Impacted cerumen, bilateral; I73.9 Peripheral vascular disease, unspecified; J43.1 Panlobular emphysema; Z72.0 Tobacco use; I25.10 Atherosclerotic heart disease of native coronary artery without angina pectoris; I13.0 Hypertensive heart and chronic kidney disease with heart failure and stage 1 through stage 4 chronic kidney disease, or unspecified chronic kidney disease; N18.4 Chronic kidney disease, stage 4 (severe); I50.9 Heart failure, unspecified; I1A.0 Resistant hypertension; D64.9 Anemia, unspecified | CPT/HCPCS: 69210; 99212 ==

== ENCOUNTER 2024-11-19 06:58 | Outpatient (REF) | payer MEDICARE, SELFPAY ==
--- OUTSIDE RECORDS SUMMARY | 2024-11-19 07:02 | XMS_ITS | Clinical Summary ---
Author Organization Unknown Care Team Providers Care Neurology Manager Name Role Phone PO ASIA, HARMAN Unavailable Unavaila jeff BARON RN, FABIANA Unavailable Unavailable CONDINO APPLE SORTER/DENISE, HOLLAND Unavailable Unav ailable GABIIAK OT, ALFREDO Unavailable Unavailabl e DEEDEE MEASUREMENT COORDINATOR, ADWOA Unavailable Unavailable HU PT, JEAN MARIE Unavailable Unavail able Payers Payer Name Policy Type Policy Number Effective Date Expira tion Date MEDICARE.NGS.PDGM [id number] Problems Condition Name Condition Details Condition Category Status Onset Date Resolution Date Last Treatment Date Treating Clinician Comments HYP HRT AND CHR KDNY DIS W HRT FAIL AND W STG 5 CHR KDNY/ESRD Active 308 00:00: 00 CHRONIC DIASTOLIC (CONGESTIVE) HEART FAILURE Active 09-10 00:00: 00 CHRONIC KIDNEY DISEASE, STAGE 5 Active 09-10 00:00: 00 PLEURAL EFFUSION, NOT ELSEWHERE CLASSIFIED Active 09-10 00:00: 00 PERIPHERAL VASCULAR DISEASE, UNSPECIFIED Active 09-10 00:00: 00 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 09-10 00:00: 00 CHRONIC OBSTRUCTIVE PULMONARY DISEASE, UNSPECIFIED Active 09-10 00:00: 00 ACUTE KIDNEY FAILURE, UNSPECIFIED Active 09-10 00:00: 00 MUSCLE WASTING AND ATROPHY, NEC, MULTIPLE SITES Active 09-10 00:00: 00 UNSPECIFIED PROTEIN-NATHALY JOCELINE MALNUTRITION Active 09-10 00:00: 00 HYPERLIPIDEM IA, UNSPECIFIED Active 2 00:00: 00 BENIGN PROSTATIC HYPERPLASIA WITHOUT LOWER URINRY TRACT SYMP Active 1- 00:00: 00 INSOMNIA, UNSPECIFIED Active 1- 00:00: 00 PERSONAL HISTORY OF NICOTINE DEPENDENCE Active 09-10 00:00: 00 ALF (CURRENT) USE OF ANTITHROMBOT ICS/ANTIPLAT ELETS Active 09-10 00:00: 00 Allergies, Adverse Reactions, Alerts Allergy Name Allergy Type Status Severity Reaction(s) Onset Date Inactive Date Treating Clinician Comments PENICILLIN G Propensity to adverse reactions Active 09-10 14:59: 02 Medications Ordered Medication Name Filled Medication Name Start Date Stop Date Current Medication? Ordering Clinician Indication Dosage Frequency Signature (SIG) Comments Components metoprolol succinate ER 100 mg tablet,exte nded release 24 hr 08-10 00:00: 00 Yes [id number] UNHTNAVAILA BLE 100 mg DAILY 100 mg DAILY (route: oral) Med Classific ation: Cardiovas cular Therapy Agents Aspirin Childrens 81 mg chewable tablet 09-10 00:00: 00 Yes [id number] NSAID 81 mg DAILY 81 mg DAILY (route: oral) Med Classific ation: Hematolog ical Agents bumetanide 1 mg tablet 09-10 00:00: 00 Yes [id number] DIURETIC 1 mg DAILY 1 mg BRIDGER Y (route: oral) Med Classific ation: Cardiovas cular Therapy Agents Colace 100 mg capsule 09-10 00:00: 00 Yes [id number] STOOL SOFTNER 100 mg 2 TIMES DAILY 100 mg 2 TIMES DAILY (route: oral) Med Classific ation: Gastroint estinal Therapy Agents finasteride 5 mg tablet 09-10 00:00: 00 Yes [id number] BPH 2.5 mg EVERY PM 2.5 mg EVERY PM (route: oral) Med Classific ation: Genitouri nary Therapy hydralazine 50 mg tablet 09-10 00:00: 00 Yes [id number] HTN 2 tablet 3 TIMES DAILY 2 tablet 3 TIMES DAILY (route: oral) Med Classific ation: Cardiovas cular Therapy Agents melatonin 3 mg capsule 09-10 00:00: 00 Yes [id number] INSOMNIA 3 mg BEDTIME 3 mg BEDTIME (route: oral) Med Classific ation: Central Nervous System Agents nifedipine ER 60 mg tablet,exte nded release - 00:00: 00 Yes [id number] HTN 120 mg DAILY 120 mg DAILY (route: oral) Med Classific ation: Cardiovas cular Therapy Agents Plavix 75 mg tablet 2-15 00:00: 00 Yes [id number] ANTICOAGULA NT. HTN 75 mg DAILY 75 mg DAILY (route: oral) Med Classific ation: Hematolog ical Agents spironolact one 50 mg tablet 2-15 00:00: 00 Yes [id number] HTN 50 mg DAILY 50 mg DAILY (route: oral) Med Classific ation: Cardiovas cular Therapy Agents terazosin 1 mg capsule 2-15 00:00: 00 Yes [id number] HTN 1 mg DAILY 1 mg BRIDGER Y (route: oral) Med Classific ation: Cardiovas cular Therapy Agents terazosin 5 mg capsule 2-15 00:00: 00 Yes [id number] HTN 5 mg BEDTIME 5 mg BEDTIME (route: oral) Med Classific ation: Cardiovas cular Therapy Agents Vitamin B-12 250 mcg tablet -15 00:00: 00 Yes [id number] SUPPLEMENT 250 mcg EVERY PM 250 mcg EVERY PM (route: oral) Med Classific ation: Electroly te Balance-N utritiona l Products acetaminoph en 325 mg tablet 2-18 00:00: 00 Yes [id number] pain 2 tablet EVERY 6 HOURS 2 tablet EVERY 6 HOURS (route: oral) Med Classific ation: Analgesic , Anti-infl ammatory or Antipyret ic clonidine HCl 0.1 mg tablet 3-14 00:00: 00 Yes [id number] HTN 0.1 mg 2 TIMES DAILY 0.1 mg 2 TIMES DAILY (route: oral) Med Classific ation: Cardiovas cular Therapy Agents Vital Signs Vital Name Observation Time Observation Value Commen ts Temperature 2024-11-17 14:59:00.000 97.8 [degF] Pulse 2024-11-17 14:59:00.000 60 /min O2 Saturation (%) 2024-11-17 14:59:00.000 98 % Respirations 2024-11-17 14:59:00.000 18 /min Systolic Blood Pressure 2024-11-17 14:59:00.000 198 mm [Hg] Diastolic Blood Pressure 2024-11-17 14:59:00.000 90 mm [Hg] Plan of Treatment Planned Activity Planned Date Details Comments Future Scheduled Test RN TO OBSE RVE, ASSESS, EVALUATE, AND DEVELOP AN INDIVIDUALIZED PLAN OF CARE. AGENCY MAY ACCEPT ORDERS FROM CONSULTING PHYSICIANS PO RN TO OBSERVE AND ASSESS, MANAGER PIPELINE/ENDORSEMENT CLERK TO OBSERVE FOR RISK FOR FALLS AND INSTRUCT IN FALL PREVENTION, HOME SAFETY, MEDICATION MANAGEMENT, INFECTION PREVENTION, AND NUTRITION MANAGEMENT. RN/MANAGER PIPELINE/ENDORSEMENT CLERK NURSE MAY PERFORM O2 SATURATION LEVEL ON ADMISSION AND PRN FOR FOR RN TO ASSESS/MANAGER PIPELINE TO OBSERVE PATIENT, WITH NOTIFICATION TO THE PHYSICIAN IF SATURATION IS 90% IN THE ABSENCE OF MORE SPECIFIC PARAMETERS FROM THE PHYSICIAN. AGENCY MAY PERFORM A RESUMPTION OF CARE VISIT FOLLOWING ANY HOSPITAL ADMISSION. RN/MANAGER PIPELINE/ENDORSEMENT CLERK TO MONITOR CO-MORBID CONDITIONS LISTED ON THE PLAN OF CARE AND ANY NEW CONDITIONS THAT PRESENT THEMSELVES DURING THIS EPISODE TO IDENTIFY CHANGES AND INTERVENE TO MINIMIZE COMPLICATIONS. [code = RN TO OBSERVE, ASSESS, EVALUATE, AND DEVELOP AN INDIVIDUALIZED PLAN OF CARE. AGENCY MAY ACCEPT ORDERS FROM CONSULTING PHYSICIANS PO RN TO OBSERVE AND ASSESS, MANAGER PIPELINE/ENDORSEMENT CLERK TO OBSERVE FOR RISK FOR FALLS AND INSTRUCT IN FALL PREVENTION, HOME SAFETY, MEDICATION MANAGEMENT, INFECTION PREVENTION, AND NUTRITION MANAGEMENT. RN/MANAGER PIPELINE/ENDORSEMENT CLERK NURSE MAY PERFORM O2 SATURATION LEVEL ON ADMISSION AND PRN FOR FOR RN TO ASSESS/MANAGER PIPELINE TO OBSERVE PATIENT, WITH NOTIFICATION TO THE PHYSICIAN IF SATURATION IS 90% IN THE ABSENCE OF MORE SPECIFIC PARAMETERS FROM THE PHYSICIAN. AGENCY MAY PERFORM A RESUMPTION OF CARE VISIT FOLLOWING ANY HOSPITAL ADMISSION. RN/MANAGER PIPELINE/ENDORSEMENT CLERK TO MONITOR CO-MORBID CONDITIONS LISTED ON THE PLAN OF CARE AND ANY NEW CONDITIONS THAT PRESENT THEMSELVES DURING THIS EPISODE TO IDENTIFY CHANGES AND INTERVENE TO MINIMIZE COMPLICATIONS.] Future Scheduled Test COPD MONIT ORING RN/ENDORSEMENT CLERK/MANAGER PIPELINE TO MONITOR FOR SIGNS AND SYMPTOMS OF COPD EXACERBATION, MONITOR FOR ADHERENCE TO MEDICATION AND COPD MANAGEMENT. [code = COPD MONITORING RN/ENDORSEMENT CLERK/MANAGER PIPELINE TO MONITOR FOR SIGNS AND SYMPTOMS OF COPD EXACERBATION, MONITOR FOR ADHERENCE TO MEDICATION AND COPD MANAGEMENT.] Future Scheduled Test MEDICATION MANAGEMENT; RN/MANAGER PIPELINE/ENDORSEMENT CLERK TO REVIEW MEDICATIONS FOR INTERACTIONS, EFFECTIVENESS OF DRUG THERAPY, AND SIGNS/SYMPTOMS OF ADVERSE REACTIONS. MAY INSTRUCT AND REINFORCE MEDICATION TEACHING RELATED TO THE USE OF MEDICATIONS, DOSAGE, FREQUENCY, PURPOSE, SIDE EFFECTS, AND TO REPORT COMPLICATIONS. [code = MEDICATION MANAGEMENT; RN/MANAGER PIPELINE/ENDORSEMENT CLERK TO REVIEW MEDICATIONS FOR INTERACTIONS, EFFECTIVENESS OF DRUG THERAPY, AND SIGNS/SYMPTOMS OF ADVERSE REACTIONS. MAY INSTRUCT AND REINFORCE MEDICATION TEACHING RELATED TO THE USE OF MEDICATIONS, DOSAGE, FREQUENCY, PURPOSE, SIDE EFFECTS, AND TO REPORT COMPLICATIONS.] Future Scheduled Test RISK FOR H OSPITALIZATION; RN TO ASSESS/TEACH, ENDORSEMENT CLERK/MANAGER PIPELINE TO OBSERVE/TEACH PATIENT/CAREGIVER ON RISK FOR HOSPITALIZATION/EMERGENCY ROOM VISITS, TEACH SIGNS AND SYMPTOMS THAT PUT PATIENT AT RISK, WHEN TO NOTIFY NURSE/PHYSICIAN OF COMPLICATIONS/DECLINE, AND WHEN TO CALL 911. [code = RISK FOR HOSPITALIZATION; RN TO ASSESS/TEACH, ENDORSEMENT CLERK/MANAGER PIPELINE TO OBSERVE/TEACH PATIENT/CAREGIVER ON RISK FOR HOSPITALIZATION/EMERGENCY ROOM VISITS, TEACH SIGNS AND SYMPTOMS THAT PUT PATIENT AT RISK, WHEN TO NOTIFY NURSE/PHYSICIAN OF COMPLICATIONS/DECLINE, AND WHEN TO CALL 911.] Future Scheduled Test SKIN INTEG RITY RN TO ASSESS AND TEACH, MANAGER PIPELINE/ENDORSEMENT CLERK TO OBSERVE AND TEACH INTEGUMENTARY STATUS TO IDENTIFY CHANGES AND INTERVENE TO MINIMIZE COMPLICATIONS. PROVIDE SKILLED TEACHING OF GENERAL WOUND AND SKIN CARE AND PREVENTION RELATED TO POTENTIAL FOR OR ACTUAL ALTERED SKIN INTEGRITY [code = SKIN INTEGRITY RN TO ASSESS AND TEACH, MANAGER PIPELINE/ENDORSEMENT CLERK TO OBSERVE AND TEACH INTEGUMENTARY STATUS TO IDENTIFY CHANGES AND INTERVENE TO MINIMIZE COMPLICATIONS. PROVIDE SKILLED TEACHING OF GENERAL WOUND AND SKIN CARE AND PREVENTION RELATED TO POTENTIAL FOR OR ACTUAL ALTERED SKIN INTEGRITY ] Future Scheduled Test CARDIOVASC ULAR SYSTEM; RN TO ASSESS/TEACH, MANAGER PIPELINE/ENDORSEMENT CLERK TO OBSERVE/TEACH RELATED TO ALTERED CARDIOVASCULAR STATUS TO MINIMIZE COMPLICATIONS AND REDUCE HOSPITALIZATION. [code = CARDIOVASCULAR SYSTEM; RN TO ASSESS/TEACH, MANAGER PIPELINE/ENDORSEMENT CLERK TO OBSERVE/TEACH RELATED TO ALTERED CARDIOVASCULAR STATUS TO MINIMIZE COMPLICATIONS AND REDUCE HOSPITALIZATION.] Future Scheduled Test HYPERTENSI ON MANAGEMENT; RN TO ASSESS AND TEACH, MANAGER PIPELINE/ENDORSEMENT CLERK TO OBSERVE AND TEACH WARNING SIGNS AND SYMPTOMS TO AVOID HOSPITALIZATION. [code = HYPERTENSION MANAGEMENT; RN TO ASSESS AND TEACH, MANAGER PIPELINE/ENDORSEMENT CLERK TO OBSERVE AND TEACH WARNING SIGNS AND SYMPTOMS TO AVOID HOSPITALIZATION.] Future Scheduled Test PAIN MANAG EMENT; RN TO ASSESS AND TEACH, ENDORSEMENT CLERK/MANAGER PIPELINE TO OBSERVE AND TEACH AND PROVIDE EDUCATION ON PAIN MANAGEMENT TECHNIQUES. [code = PAIN MANAGEMENT; RN TO ASSESS AND TEACH, ENDORSEMENT CLERK/MANAGER PIPELINE TO OBSERVE AND TEACH AND PROVIDE EDUCATION ON PAIN MANAGEMENT TECHNIQUES.] Future Scheduled Test FALL REDUC TION MANAGEMENT; RN TO ASSESS AND OBSERVE, MANAGER PIPELINE/ENDORSEMENT CLERK TO OBSERVE FALL RISK FACTORS AND EDUCATE PATIENT/CAREGIVER ON STRATEGIES TO MINIMIZE THE RISK OF FALLING. [code = FALL REDUCTION MANAGEMENT; RN TO ASSESS AND OBSERVE, MANAGER PIPELINE/ENDORSEMENT CLERK TO OBSERVE FALL RISK FACTORS AND EDUCATE PATIENT/CAREGIVER ON STRATEGIES TO MINIMIZE THE RISK OF FALLING.] Future Scheduled Test PRN VISITS ; NUMBER OF RN/MANAGER PIPELINE/ENDORSEMENT CLERK VISITS: 3 FOR CP ASSESSMENT [code = PRN VISITS; NUMBER OF RN/MANAGER PIPELINE/ENDORSEMENT CLERK VISITS: 3 FOR CP ASSESSMENT] Goal 2024-11-08 Patient Goal - REDUCED EDEMA . Goal Patient Goal - REDUCED EDEMA .. Goal Provider Goal - A PLAN OF CARE WILL BE ESTABLISHED THAT MEETS THE PATIENTS NEEDS. PATIENT WILL DEMONSTRATE OXYGEN SATURATION WITHIN NORMAL LIMITS OR PATIENTS OPTIMAL LEVEL ESTABLISHED BY THE PHYSICIAN THROUGHOUT CARE. CHANGES TO CO-MORBID CONDITIONS AND ANY NEW CONDITIONS WILL BE IDENTIFIED AND REPORTED TO THE PHYSICIAN. Goal Provider Goal - COPD WILL BE CONTROLLED THROUGHOUT THE EPISODE. Goal Provider Goal - PATIENT/CAREGIVER TO VERBALIZE, AND CONSISTENTLY DEMONSTRATE EFFECTIVE, SAFE MANAGEMENT OF MEDICATION INCLUDING KNOWLEDGE OF EFFECTIVENESS, POTENTIAL SIDE EFFECTS AND DRUG REACTIONS AND WHEN TO CONTACT THE APPROPRIATE CARE PROVIDER. PATIENT/CAREGIVER WILL BE ABLE TO VERBALIZE UNDERSTANDING OF MEDICATION REGIMEN AND ACCURATELY TAKE MEDICATIONS PRESCRIBED WITHOUT ADVERSE EFFECTS BY 01-07-25 Goal Provider Goal - PATIENT/CAREGIVER WILL VERBALIZE UNDERSTANDING OF SIGNS AND SYMPTOMS THAT PUT THE PATIENT AT RISK FOR HOSPITALIZATION /EMERGENCY ROOM VISITS, WHEN TO NOTIFY NURSE/PHYSICIAN OF COMPLICATIONS/DECLINE AND WHEN TO CALL 911. Goal Provider Goal - CHANGES IN SKIN INTEGRITY STATUS WILL BE IDENTIFIED AND REPORTED TO THE PHYSICIAN FOR PROMPT INTERVENTION. PATIENT / CAREGIVER WILL VERBALIZE/DEMONSTRATE ADEQUATE KNOWLEDGE OF INTEGUMENTARY STATUS AND APPROPRIATE MEASURES TO PROMOTE SKIN INTEGRITY AND PREVENT INJURY BY 01-07-25 Goal Provider Goal - PATIENT / CAREGIVER WILL VERBALIZE/DEMONSTRATE UNDERSTANDING OF MEASURES TO MANAGE ALTERED CARDIOVASCULAR STATUS BY 01-07-25 Goal Provider Goal - PATIENT / CAREGIVER WILL VERBALIZE/DEMONSTRATE AN ABILITY TO ADHERE TO SELF-MANAGEMENT OF HTN TO MINIMIZE COMPLICATIONS AND AVOID HOSPITALIZATION BY END OF EPISODE. Goal Provider Goal - PATIENT / CAREGIVER WILL VERBALIZE / DEMONSTRATE UNDERSTANDING OF PAIN CONTROL MEASURES BY 01-07-25 Goal Provider Goal - PATIENT/CAREGIVER WILL VERBALIZE/DEMONSTRATE UNDERSTANDING OF FALL RISK FACTORS AND IMPLEMENT STRATEGIES TO MINIMIZE FALL RISK. PATIENT/CAREGIVER WILL VERBALIZE/DEMONSTRATE AN ABILITY TO ADHERE TO FALL REDUCTION SELF-MANAGEMENT AND LIFE-STYLE CHANGES BY 6-14-25 Goal Provider Goal - Encounters Start Date/Time End Date/Time Encounter Type Admission Type Attending [facility] Care Department Encounter ID Discharge Date Discharge Status Discharge Condition Discharge Reason Percent Goals Met 2024-09-10 00:00:00 2025-01-07 00:00:00 Outpatient RECERTIFIC ATFABIANA MOTT [facility] [id number] 33.33
[2024-11-19 07:30] LABS: MANUAL DIFF FLAG NO
[2024-11-19 08:12] LABS: Basophils Percent Auto 0.6 % (0-2); Eosinophils Absolute Auto 0.9 X10*3/uL (0.0-0.4); Eosinophils Percent Auto 13.6 % (0-4); Hemoglobin 11.4 g/dl (14.0-18.0); Imm Gran Abs Auto 0.02 X10*3/uL (0.00-0.03); Imm Gran Pct Auto 0.3 % (0.0-0.4); Immature Retic Fraction 7.8 % (2.3-13.4); Lymphocytes Percent Auto 15.3 % (20-40); Mean Corpuscular HGB Conc 32.6 g/dl (31.0-36.0); Mean Corpuscular Hemoglobin 26.5 pg (27.0-33.0); Mean Corpuscular Volume 81.4 fL (80.0-98.0); Mean Platelet Volume 9.7 fL (9.4-12.4); Monocytes Absolute Auto 0.8 X10*3/uL (0.1-1.2); Monocytes Percent Auto 12.6 % (2-11); Neutrophils Absolute Auto 3.6 x10*3/uL (2.0-8.3); Neutrophils Percent Auto 57.6 % (45-73); Platelet Count 268 X10*3/uL (160-400); Red Cell Distribution Width 16.7 % (11.0-16.0); Retic HGB Equivalent 32.7 pg (30.0-35.0); Reticulocyte Percent 1.4 % (0.5-1.8); Reticulocytes Absolute 0.059 X10*6/uL (0.026-0.095); White Blood Count 6.3 X10*3/uL (4.8-10.8)
[2024-11-19 08:47] LABS: B Type Natriuretic Peptide 527 pg/mL (<100)
[2024-11-19 09:07] LABS: Appearance Urine Clear; Color Urine Yellow; Glucose Urine UA Negative (Negative); Leukocyte Esterase Urine Negative (Negative); Nitrite Urine Negative (Negative); PH 5.5 (5.0-9.0); Specific Gravity - Urine 1.015 (1.005-1.025); UMIC TRIGGER UACC YES; Urine Blood Negative (Negative); Urine Ketones Negative (Negative); Urine Protein 100 (2+) mg/dL (Neg-Trace)
[2024-11-19 09:17] LABS: Alanine Aminotransferase 9 U/L (0-40); Albumin Level 4.2 g/dL (3.5-5.0); Alkaline Phosphatase 77 U/L (39-117); Anion Gap 16 (12-20); Aspartate Amino Transferase 18 U/L (5-37); Bilirubin Total 0.5 mg/dL (0.0-1.0); Blood Urea Nitrogen 59 mg/dL (9-16); Calcium 9.2 mg/dL (8.4-10.2); Carbon Dioxide 19 mmol/L (22-29); Chloride 106 mmol/L (96-108); Cholesterol 175 mg/dL (<200); Estimated Glomerular Filt Rate 16; Glucose Random 105 mg/dL (60-115); HDL Cholesterol 41 mg/dL (>40); Iron 79 mcg/dL (45-160); LDL Cholesterol Calculated 114 mg/dL (<100); Percent Iron Saturation 25 % (15-50); Potassium 3.8 mmol/L (3.3-5.1); Sodium 137 mmol/L (135-145); Total Iron Binding Capacity 312 mcg/dL (228-428); Total Protein 7.3 g/dL (6.5-8.0); Triglycerides 100 mg/dL (<150); Unsaturated Iron Binding 233 ug/dL
[2024-11-19 09:25] LABS: Bacteria Urine None Seen (None Seen); Hyaline Casts Urine 0-2 /LPF (0-2); RBC Urine 0-2 /HPF (0-2); Squamous Epithelial Cell Urine 0-2 /HPF (0-2); WBC Urine 0-5 /HPF (0-5)
[2024-11-19 09:26] LABS: Ferritin 30 ng/mL (20-250); Free T4 (Free Thyroxine) 1.08 ng/dL (0.71-1.85); Thyroid Stimulating Hormone 3.83 uIU/mL (0.32-4.0); Vitamin D 25-OH Total 17.5 ng/mL (>30)
[2024-11-19 10:03] LABS: Folate 6.2 ng/mL (> or = 4.0); Prostate Specific Antigen Scr 1.47 ng/mL (<0.05-4.0)
[2024-11-19 10:07] LABS: Vitamin B12 1509 pg/mL (200-900)
== END 2024-11-19 06:59 | disposition home or self-care (01) ==
LOC: HO.LAB 06:58
PROVIDERS: Absent Provider Internal Medicine Nephrology; PCP Internal Medicine; Visit Provider Internal Medicine
DX: I12.9 Hypertensive chronic kidney disease with stage 1 through stage 4 chronic kidney disease, or unspecified chronic kidney disease (principal); E78.00 Pure hypercholesterolemia, unspecified; N18.4 Chronic kidney disease, stage 4 (severe); Z12.5 Encounter for screening for malignant neoplasm of prostate
CPT/HCPCS: 36415; 80053; 80061; 81001; 82306; 82607; 82728; 82746; 83540; 83880; 84153; 84439; 84443; 85025; 85045

== ENCOUNTER → 2024-11-20 23:59 | Outpatient (BNV) | payer MEDICARE, SELFPAY | PROVIDERS: PCP Internal Medicine; Visit Provider Internal Medicine | DX: I13.2 Hypertensive heart and chronic kidney disease with heart failure and with stage 5 chronic kidney disease, or end stage renal disease (principal); I50.32 Chronic diastolic (congestive) heart failure; I73.9 Peripheral vascular disease, unspecified | CPT/HCPCS: G0179 ==

== ENCOUNTER 2024-11-23 10:27 | Outpatient (AMB) | payer MEDICARE, SELFPAY ==
--- NOTE | 2024-11-23 10:59 | HO.NEPHOV ---
Vital Signs 11/23/24 11:00 Height 6 ft Weight 137 lb 8 oz BMI 18.6 BP 150/70 H Blood Pressure Location Lt brachial Position Sitting Pulse 57 Pulse Source Pulse Oximeter Pulse Oximetry (%) 98 Oxygen Delivery Method Room Air Intake Visit Reasons: 6wk follow-up w/labs-LVM Certified Industrial Hygienist Required: No Accompanied by: Son Allergies Penicillins Adverse Reaction (Intermediate, Verified 11/23/24 11:00) rash HPI Comments Details: 68-year-old man with a history of hypertension and significant vascular disease who had a baseline creatinine about 1.0- 1.2 mg/dL in October of 2022. In June of 2023 creatinine went up to 1.6 with it going upto 1.9 in July and 2.63 in November 2023. He also had been on hydrochlorothiazide 50 mg at that time which was reduced to 25 mg due to hypokalemia.He has a history of testicular cancer and underwent radiation several years ago which he attributes to his vascular disease. He has H/O fem- fem bypass surgery by Dr. Veras. Apparently he had a coronary angiogram in [facility] which was reportedly normal.(I have not seen the results). He has a history of smoking for several years. He continues to smoke cigarettes despite peripheral vascular disease and dyslipidemia.He has no new rash. He was seen in ER for accelerated hypertension & at that time his serum creatinine bumped up to 3.19. Previously CT angiogram of the abdomen in 2021 showed bilateral atherosclerosis disease of renal arteries.He underwent angiography and B/L renal artery stenting. He had taken hydralazine but could not tolerate due to side effects. He recently was admitted for acute on chronic diastolic CHF complicated by acute hypoxic respiratory failure. Was treated with IV Bumex which was then complicated by acute kidney injury on CKD 4. Creatinine stabilized & is better now. For peripheral vascular disease he is continued on dual antiplatelet and statin. [facility] Medical History (Updated 11/17/24 @ 10:42 by Michael Chery MD) Renal insufficiency History of stent insertion of renal artery CKD (chronic kidney disease) Subarachnoid hemorrhage Tubular adenoma COVID-19 vaccination refused History of testicular cancer Peripheral arterial disease Hypercholesterolemia Coronary artery disease Tobacco abuse COPD (chronic obstructive pulmonary disease) Hypertension Surgical History History of surgery Hx of colonoscopy Hx of prostate biopsy History of tonsillectomy History of testicular surgery Family History Father No problems noted. Mother No problems noted. Maternal Grandmother Myocardial infarction Brother In good health Sister In good health Son In good health Son In good health Daughter In good health Sister Diabetes Social History (Updated 11/17/24 @ 11:05 by Michael Chery MD) Household Members: Spouse, Significant Other and Family Household Members Other:: 6 Housing: House Are you a primary director of home care hospice to a significant other at home: No Do you presently have visiting nurse or other home services: No Alcohol intake: former Patient Tobacco Use Status: Former Tobacco user Tobacco use type: Cigarette Cigarette Packs Per Day: 0.5 Cigarettes Per Day: 2 Years Smoked: 53 years- 10/PER DAY stopped smoking 07/2024 e-Cigarette/Vaping Use: Never Used Second Hand Smoke Exposure: Yes service: No Current occupational status: employed Current occupational exposures/hazards: No Cognitive needs: No Hearing needs: No Vision needs: Yes Review of Systems Const All systems reviewed & are unremarkable except as noted in HPI and below Physical Exam Vital Signs: Last Vital Signs Pulse 57 11/23/24 11:00 BP 150/70 H 11/23/24 11:00 Pulse Ox 98 11/23/24 11:00 Oxygen Delivery Method Room Air 11/23/24 11:00 BMI result Body Mass Index 18.6 Const General: comfortable and no acute distress Orientation/consciousness: patient oriented x3 HEENT Head: Yes normocephalic Mouth: Normal oral and palatal mucosa present Eyes EOM: EOMs intact bilaterally Neck Neck: Yes supple Resp Auscultation: clear to auscultation bilaterally Cardio Jugular venous distension: no JVD Rate: regular rate GI Palpation (GI): Soft to palpation Auscultation: normal bowel sounds General: Yes no CVA tenderness Back/Spine/Pelvis Back: no CVA tenderness Skin General skin exam: no rashes or lesions noted Neuro General: patient oriented x3 and moves all extremities Extrem General: Yes no pedal edema Results Reviewed Nephrology Results: Hgb 11.4 g/dl (14.0-18.0) L 11/19/24 WBC 6.3 X10*3/uL (4.8-10.8) 11/19/24 Plt Count 268 X10*3/uL (160-400) 11/19/24 Sodium 137 mmol/L (135-145) 11/19/24 Potassium 3.8 mmol/L (3.3-5.1) 11/19/24 Chloride 106 mmol/L (96-108) 11/19/24 Carbon Dioxide 19 mmol/L (22-29) L 11/19/24 BUN 59 mg/dL (9-16) H 11/19/24 Creatinine 3.88 mg/dL (0.5-1.4) H 11/19/24 Calcium 9.2 mg/dL (8.4-10.2) 11/19/24 Urine Protein 100 (2+) mg/dL (Neg-Trace) H 11/19/24 Assessment & Plan Assessment & Plan (1) Hypertension: Code(s): I10 - Essential (primary) hypertension Category: Medical Qualifiers: Hypertension type: essential hypertension Qualified Code(s): I10 - Essential (primary) hypertension (2) CKD (chronic kidney disease) stage 4, GFR 15-29 ml/min: Code(s): N18.4 - Chronic kidney disease, stage 4 (severe) Category: Medical Plan 69-year-old man with a history of longstanding hypertension dyslipidemia and peripheral vascular disease in the setting of chronic smoking currently has progressive chronic kidney disease, likely from ischemic nephropathy. He is S/P B/L renal artery stenting. His BP has been labile and medications have been adjusted with improvement. He avoids NSAID's. I increased his Spironolactone to 75 mg daily. He could continue rest of current medications for now. I ordered follow up blood work. I discussed about declining renal function and need for renal replacement in the future. Follow up given Orders: Orders Creatinine 2 Months I10 - Essential (primary) hypertension, N18.4 - Chronic kidney disease, stage 4 (severe) Electrolytes 2 Months I10 - Essential (primary) hypertension, N18.4 - Chronic kidney disease, stage 4 (severe) Blood Urea Nitrogen 2 Months I10 - Essential (primary) hypertension, N18.4 - Chronic kidney disease, stage 4 (severe) Medications: Changed From clonidine HCl 0.1 mg PO BID I10 - Essential (primary) hypertension To clonidine HCl 0.1 mg PO BID 90 days 180 tabs 4RF I10 - Essential (primary) hypertension From hydralazine 100 mg See Protocol PO BID To hydralazine 100 mg See Protocol PO BID 90 days 180 tabs 4RF From spironolactone 50 mg PO DAILY 90 tabs 3RF I10 - Essential (primary) hypertension To spironolactone 75 mg (1.5 x 50 mg) PO DAILY 90 days 135 tabs 3RF I10 - Essential (primary) hypertension Coding Level of Care Code Est Pt Level 4 (94327) Diagnoses Essential hypertension I10 Hypertension type: essential hypertension CKD (chronic kidney disease) stage 4, GFR 15-29 ml/min N18.4
[2024-11-23 11:00] VITALS: BP 150/70; PULSE 57; O2SAT 98; BMI 18.6
--- OUTSIDE RECORDS SUMMARY | 2024-11-23 11:48 | XMS_ITS | Clinical Summary ---
Author Organization Unknown Care Team Providers Care Senior Administrative Assistant Name Role Phone PO ASIA, HARMAN Unavailable Unavaila jeff BARON RN, FABIANA Unavailable Unavailable CONDINO CALL WORKER/DENISE, HOLLAND Unavailable Unav ailable STARSIAK OT, ALFREDO Unavailable Unavailabl e DEEDEE SEASONAL DELIVERY DRIVER, ADWOA Unavailable Unavailable HU PT, JEAN MARIE Unavailable Unavail able Payers Payer Name Policy Type Policy Number Effective Date Expira tion Date MEDICARE.NGS.PDGM [id number] Problems Condition Name Condition Details Condition Category [...] 09-10 00:00: 00 ATHSCL HEART DISEASE OF [place] CORONARY ARTERY W/O ANG PCTRS Active 09-10 [...] OF NICOTINE DEPENDENCE Active 09-10 00:00: 00 [facility] (CURRENT) USE OF ANTITHROMBOT ICS/ANTIPLAT ELETS Active [...] release 24 hr 08-10 00:00: 00 Yes [id number] UNHTNAVAILA BLE 100 mg DAILY 100 mg DAILY (route: oral) Med Classific ation: Cardiovas cular Therapy Agents Aspirin Childrens 81 mg chewable tablet 09-10 00:00: 00 Yes [id number] NSAID 81 mg DAILY 81 mg DAILY (route: oral) Med Classific ation: Hematolog ical Agents bumetanide 1 mg tablet 09-10 00:00: 00 Yes [id number] DIURETIC 1 mg DAILY 1 mg BRIDGER Y (route: oral) Med Classific ation: Cardiovas cular Therapy Agents Colace 100 mg capsule 09-10 00:00: 00 Yes [id number] STOOL SOFTNER 100 mg 2 TIMES DAILY 100 mg 2 TIMES DAILY (route: oral) Med Classific ation: Gastroint estinal Therapy Agents finasteride 5 mg tablet 09-10 00:00: 00 Yes [id number] BPH 2.5 mg EVERY PM 2.5 mg EVERY PM (route: oral) Med Classific ation: Genitouri nary Therapy hydralazine 50 mg tablet 09-10 00:00: 00 Yes [id number] HTN 2 tablet 3 TIMES DAILY 2 tablet 3 TIMES DAILY (route: oral) Med Classific ation: Cardiovas cular Therapy Agents melatonin 3 mg capsule 09-10 00:00: 00 Yes [id number] INSOMNIA 3 mg BEDTIME 3 mg BEDTIME (route: oral) Med Classific ation: Central Nervous System Agents nifedipine ER 60 mg tablet,exte nded release - 00:00: 00 Yes [id number] HTN 120 mg DAILY 120 mg DAILY (route: oral) Med Classific ation: Cardiovas cular Therapy Agents Plavix 75 mg tablet 2-15 00:00: 00 Yes [id number] ANTICOAGULA NT. HTN 75 mg DAILY 75 mg DAILY (route: oral) Med Classific ation: Hematolog ical Agents spironolact one 50 mg tablet 2-15 00:00: 00 Yes [id number] HTN 50 mg DAILY 50 mg DAILY (route: oral) Med Classific ation: Cardiovas cular Therapy Agents terazosin 1 mg capsule 2-15 00:00: 00 Yes [id number] HTN 1 mg DAILY 1 mg BRIDGER Y (route: oral) Med Classific ation: Cardiovas cular Therapy Agents terazosin 5 mg capsule 2-15 00:00: 00 Yes [id number] HTN 5 mg BEDTIME 5 mg BEDTIME (route: oral) Med Classific ation: Cardiovas cular Therapy Agents Vitamin B-12 250 mcg tablet -15 00:00: 00 Yes [id number] SUPPLEMENT 250 mcg EVERY PM 250 mcg EVERY PM (route: oral) Med Classific ation: Electroly te Balance-N utritiona l Products acetaminoph en 325 mg tablet 2-18 00:00: 00 Yes [id number] pain 2 tablet EVERY 6 HOURS 2 tablet EVERY 6 HOURS (route: oral) Med Classific ation: Analgesic , Anti-infl ammatory or Antipyret ic clonidine HCl 0.1 mg tablet 3-14 00:00: 00 Yes [id number] HTN 0.1 mg 2 TIMES DAILY 0.1 [...] PHYSICIANS PO RN TO OBSERVE AND ASSESS, CRADLE SLIDE MAKER/PAYROLL ACCOUNTING SPECIALIST TO OBSERVE FOR RISK FOR FALLS AND INSTRUCT IN FALL PREVENTION, HOME SAFETY, MEDICATION MANAGEMENT, INFECTION PREVENTION, AND NUTRITION MANAGEMENT. RN/CRADLE SLIDE MAKER/PAYROLL ACCOUNTING SPECIALIST NURSE MAY PERFORM O2 SATURATION LEVEL ON ADMISSION AND PRN FOR FOR RN TO ASSESS/CRADLE SLIDE MAKER TO OBSERVE PATIENT, WITH NOTIFICATION TO THE PHYSICIAN IF SATURATION IS 90% IN THE ABSENCE OF MORE SPECIFIC PARAMETERS FROM THE PHYSICIAN. AGENCY MAY PERFORM A RESUMPTION OF CARE VISIT FOLLOWING ANY HOSPITAL ADMISSION. RN/CRADLE SLIDE MAKER/PAYROLL ACCOUNTING SPECIALIST TO MONITOR CO-MORBID CONDITIONS LISTED ON THE PLAN OF CARE AND ANY NEW CONDITIONS THAT PRESENT THEMSELVES DURING THIS EPISODE TO IDENTIFY CHANGES AND INTERVENE TO MINIMIZE COMPLICATIONS. [code = RN TO OBSERVE, ASSESS, EVALUATE, AND DEVELOP AN INDIVIDUALIZED PLAN OF CARE. AGENCY MAY ACCEPT ORDERS FROM CONSULTING PHYSICIANS PO RN TO OBSERVE AND ASSESS, CRADLE SLIDE MAKER/PAYROLL ACCOUNTING SPECIALIST TO OBSERVE FOR RISK FOR FALLS AND INSTRUCT IN FALL PREVENTION, HOME SAFETY, MEDICATION MANAGEMENT, INFECTION PREVENTION, AND NUTRITION MANAGEMENT. RN/CRADLE SLIDE MAKER/PAYROLL ACCOUNTING SPECIALIST NURSE MAY PERFORM O2 SATURATION LEVEL ON ADMISSION AND PRN FOR FOR RN TO ASSESS/CRADLE SLIDE MAKER TO OBSERVE PATIENT, WITH NOTIFICATION TO THE PHYSICIAN IF SATURATION IS 90% IN THE ABSENCE OF MORE SPECIFIC PARAMETERS FROM THE PHYSICIAN. AGENCY MAY PERFORM A RESUMPTION OF CARE VISIT FOLLOWING ANY HOSPITAL ADMISSION. RN/CRADLE SLIDE MAKER/PAYROLL ACCOUNTING SPECIALIST TO MONITOR CO-MORBID CONDITIONS LISTED ON THE PLAN OF CARE AND ANY NEW CONDITIONS THAT PRESENT THEMSELVES DURING THIS EPISODE TO IDENTIFY CHANGES AND INTERVENE TO MINIMIZE COMPLICATIONS.] Future Scheduled Test COPD MONIT ORING RN/PAYROLL ACCOUNTING SPECIALIST/CRADLE SLIDE MAKER TO MONITOR FOR SIGNS AND SYMPTOMS OF COPD EXACERBATION, MONITOR FOR ADHERENCE TO MEDICATION AND COPD MANAGEMENT. [code = COPD MONITORING RN/PAYROLL ACCOUNTING SPECIALIST/CRADLE SLIDE MAKER TO MONITOR FOR SIGNS AND SYMPTOMS OF COPD EXACERBATION, MONITOR FOR ADHERENCE TO MEDICATION AND COPD MANAGEMENT.] Future Scheduled Test MEDICATION MANAGEMENT; RN/CRADLE SLIDE MAKER/PAYROLL ACCOUNTING SPECIALIST TO REVIEW MEDICATIONS FOR INTERACTIONS, EFFECTIVENESS OF DRUG THERAPY, AND SIGNS/SYMPTOMS OF ADVERSE REACTIONS. MAY INSTRUCT AND REINFORCE MEDICATION TEACHING RELATED TO THE USE OF MEDICATIONS, DOSAGE, FREQUENCY, PURPOSE, SIDE EFFECTS, AND TO REPORT COMPLICATIONS. [code = MEDICATION MANAGEMENT; RN/CRADLE SLIDE MAKER/PAYROLL ACCOUNTING SPECIALIST TO REVIEW MEDICATIONS FOR INTERACTIONS, EFFECTIVENESS OF DRUG THERAPY, AND SIGNS/SYMPTOMS OF ADVERSE REACTIONS. MAY INSTRUCT AND REINFORCE MEDICATION TEACHING RELATED TO THE USE OF MEDICATIONS, DOSAGE, FREQUENCY, PURPOSE, SIDE EFFECTS, AND TO REPORT COMPLICATIONS.] Future Scheduled Test RISK FOR H OSPITALIZATION; RN TO ASSESS/TEACH, PAYROLL ACCOUNTING SPECIALIST/CRADLE SLIDE MAKER TO OBSERVE/TEACH PATIENT/CAREGIVER ON RISK FOR HOSPITALIZATION/EMERGENCY ROOM VISITS, TEACH SIGNS AND SYMPTOMS THAT PUT PATIENT AT RISK, WHEN TO NOTIFY NURSE/PHYSICIAN OF COMPLICATIONS/DECLINE, AND WHEN TO CALL 911. [code = RISK FOR HOSPITALIZATION; RN TO ASSESS/TEACH, PAYROLL ACCOUNTING SPECIALIST/CRADLE SLIDE MAKER TO OBSERVE/TEACH PATIENT/CAREGIVER ON RISK FOR HOSPITALIZATION/EMERGENCY ROOM VISITS, TEACH SIGNS AND SYMPTOMS THAT PUT PATIENT AT RISK, WHEN TO NOTIFY NURSE/PHYSICIAN OF COMPLICATIONS/DECLINE, AND WHEN TO CALL 911.] Future Scheduled Test SKIN INTEG RITY RN TO ASSESS AND TEACH, CRADLE SLIDE MAKER/PAYROLL ACCOUNTING SPECIALIST TO OBSERVE AND TEACH INTEGUMENTARY STATUS TO IDENTIFY CHANGES AND INTERVENE TO MINIMIZE COMPLICATIONS. PROVIDE SKILLED TEACHING OF GENERAL WOUND AND SKIN CARE AND PREVENTION RELATED TO POTENTIAL FOR OR ACTUAL ALTERED SKIN INTEGRITY [code = SKIN INTEGRITY RN TO ASSESS AND TEACH, CRADLE SLIDE MAKER/PAYROLL ACCOUNTING SPECIALIST TO OBSERVE AND TEACH INTEGUMENTARY STATUS TO IDENTIFY CHANGES AND INTERVENE TO MINIMIZE COMPLICATIONS. PROVIDE SKILLED TEACHING OF GENERAL WOUND AND SKIN CARE AND PREVENTION RELATED TO POTENTIAL FOR OR ACTUAL ALTERED SKIN INTEGRITY ] Future Scheduled Test CARDIOVASC ULAR SYSTEM; RN TO ASSESS/TEACH, CRADLE SLIDE MAKER/PAYROLL ACCOUNTING SPECIALIST TO OBSERVE/TEACH RELATED TO ALTERED CARDIOVASCULAR STATUS TO MINIMIZE COMPLICATIONS AND REDUCE HOSPITALIZATION. [code = CARDIOVASCULAR SYSTEM; RN TO ASSESS/TEACH, CRADLE SLIDE MAKER/PAYROLL ACCOUNTING SPECIALIST TO OBSERVE/TEACH RELATED TO ALTERED CARDIOVASCULAR STATUS TO MINIMIZE COMPLICATIONS AND REDUCE HOSPITALIZATION.] Future Scheduled Test HYPERTENSI ON MANAGEMENT; RN TO ASSESS AND TEACH, CRADLE SLIDE MAKER/PAYROLL ACCOUNTING SPECIALIST TO OBSERVE AND TEACH WARNING SIGNS AND SYMPTOMS TO AVOID HOSPITALIZATION. [code = HYPERTENSION MANAGEMENT; RN TO ASSESS AND TEACH, CRADLE SLIDE MAKER/PAYROLL ACCOUNTING SPECIALIST TO OBSERVE AND TEACH WARNING SIGNS AND SYMPTOMS TO AVOID HOSPITALIZATION.] Future Scheduled Test PAIN MANAG EMENT; RN TO ASSESS AND TEACH, PAYROLL ACCOUNTING SPECIALIST/CRADLE SLIDE MAKER TO OBSERVE AND TEACH AND PROVIDE EDUCATION ON PAIN MANAGEMENT TECHNIQUES. [code = PAIN MANAGEMENT; RN TO ASSESS AND TEACH, PAYROLL ACCOUNTING SPECIALIST/CRADLE SLIDE MAKER TO OBSERVE AND TEACH AND PROVIDE EDUCATION ON PAIN MANAGEMENT TECHNIQUES.] Future Scheduled Test FALL REDUC TION MANAGEMENT; RN TO ASSESS AND OBSERVE, CRADLE SLIDE MAKER/PAYROLL ACCOUNTING SPECIALIST TO OBSERVE FALL RISK FACTORS AND EDUCATE PATIENT/CAREGIVER ON STRATEGIES TO MINIMIZE THE RISK OF FALLING. [code = FALL REDUCTION MANAGEMENT; RN TO ASSESS AND OBSERVE, CRADLE SLIDE MAKER/PAYROLL ACCOUNTING SPECIALIST TO OBSERVE FALL RISK FACTORS AND EDUCATE PATIENT/CAREGIVER ON STRATEGIES TO MINIMIZE THE RISK OF FALLING.] Future Scheduled Test PRN VISITS ; NUMBER OF RN/CRADLE SLIDE MAKER/PAYROLL ACCOUNTING SPECIALIST VISITS: 3 FOR CP ASSESSMENT [code = PRN VISITS; NUMBER OF RN/CRADLE SLIDE MAKER/PAYROLL ACCOUNTING SPECIALIST VISITS: 3 FOR CP ASSESSMENT] Goal 2024-11-08 [...] End Date/Time Encounter Type Admission Type Attending [facility] Care Department Encounter ID Discharge Date Discharge Status Discharge Condition Discharge Reason Percent Goals Met 2024-09-10 00:00:00 2025-01-07 00:00:00 Outpatient RECERTIFIC ATFABIANA MOTT [facility] [id number] 33.33
== END 2024-11-23 11:21 | disposition home or self-care (01) ==
LOC: HO.HKA 10:27
PROVIDERS: PCP Internal Medicine; Visit Provider Internal Medicine Nephrology
DX: I12.9 Hypertensive chronic kidney disease with stage 1 through stage 4 chronic kidney disease, or unspecified chronic kidney disease (principal); N18.4 Chronic kidney disease, stage 4 (severe)
CPT/HCPCS: 99214

== ENCOUNTER → 2024-11-23 10:27 | Outpatient (BNVA) | payer MEDICARE, SELFPAY | PROVIDERS: PCP Internal Medicine; Visit Provider Internal Medicine Nephrology | DX: I13.0 Hypertensive heart and chronic kidney disease with heart failure and stage 1 through stage 4 chronic kidney disease, or unspecified chronic kidney disease (principal); I50.9 Heart failure, unspecified; N18.4 Chronic kidney disease, stage 4 (severe); F17.210 Nicotine dependence, cigarettes, uncomplicated; I73.9 Peripheral vascular disease, unspecified; E78.5 Hyperlipidemia, unspecified | CPT/HCPCS: 99212 ==

== ENCOUNTER 2024-11-30 10:12 | Outpatient (REF) | payer MEDICARE, SELFPAY ==
--- NOTE | ~2024-11-30 | XR_ITS ---
EXAMINATION: XR CHEST CLINICAL INFORMATION: R06.02 - Shortness of breath COMPARISON: 09/13/2024, 08/25/2024, 08/22/2024. TECHNIQUE: 2 views of the chest were obtained. FINDINGS: The cardiac, hilar, and mediastinal contours are normal. Lungs are diffusely hyperaerated, with flattened hemidiaphragms, consistent with COPD. There is mild biapical pleural thickening/scarring. There are increased markings in the right lower lung, with a suggestion of associated peribronchial thickening. Bronchopneumonia is suspected. There is no pneumothorax or pleural effusion. There is no focal osseous or soft tissue abnormality. XR/XR chest 2V IMPRESSION: 1. COPD. 2. Increased peribronchovascular markings right lower lobe suggestive of bronchopneumonia. Electronically signed by: Edwardo Queen MD 11/30/2024 12:32 PM EDT
--- NOTE | 2024-11-30 11:27 | ECG_ITS ---
Test Reason : PRE OP Blood Pressure : */* mmHG Vent. Rate : 66 BPM Atrial Rate : 66 BPM P-R Int : 236 ms QRS Dur : 98 ms QT Int : 438 ms P-R-T Axes : 69 70 82 degrees QTcB Int : 459 ms Sinus rhythm with 1st degree A-V block with frequent Premature ventricular complexes Possible Left atrial enlargement Nonspecific ST abnormality Abnormal ECG When compared with ECG of 26-Aug-2024 11:11, No significant change was found Referred By: Beverly Scott Electronically Signed By: UNIQUE LAZO
[2024-11-30 11:50] LABS: Immature Retic Fraction 7.5 % (2.3-13.4); Retic HGB Equivalent 32.5 pg (30.0-35.0); Reticulocyte Percent 1.1 % (0.5-1.8)
[2024-11-30 12:20] LABS: Anion Gap 18 (12-20); Blood Urea Nitrogen 63 mg/dL (9-16); Calcium 9.6 mg/dL (8.4-10.2); Carbon Dioxide 18 mmol/L (22-29); Chloride 106 mmol/L (96-108); Estimated Glomerular Filt Rate 16; Potassium 4.2 mmol/L (3.3-5.1); Sodium 138 mmol/L (135-145)
[2024-11-30 12:24] LABS: B Type Natriuretic Peptide 621 pg/mL (<100)
--- OUTSIDE RECORDS SUMMARY | 2024-11-30 12:48 | XMS_ITS | Clinical Summary ---
Author Organization Unknown Care Team Providers Care Clamshell Operator Name Role Phone PO ASIA, HARMAN Unavailable Unavaila jeff BARON RN, FABIANA Unavailable Unavailable CONDINO DINING ROOM SUPERVISOR/DENISE, HOLLAND Unavailable Unav ailable GABIIAK OT, ALFREDO Unavailable Unavailabl e DEEDEE NUTRITION INSTRUCTOR, ADWOA Unavailable Unavailable HU PT, JEAN MARIE Unavailable Unavail able Payers Payer Name Policy Type Policy Number Effective Date Expira tion Date MEDICARE.NGS.PDGM [id number] Problems Condition Name Condition Details Condition Category [...] 09-10 00:00: 00 ATHSCL HEART DISEASE OF [place] CORONARY ARTERY W/O ANG PCTRS Active 09-10 00:00: 00 CHRONIC OBSTRUCTIVE PULMONARY DISEASE, UNSPECIFIED Active 09-10 00:00: 00 ACUTE KIDNEY FAILURE, UNSPECIFIED Active 09-10 00:00: 00 MUSCLE WASTING AND ATROPHY, NEC, MULTIPLE SITES Active 09-10 00:00: 00 UNSPECIFIED PROTEIN-NATHALY JOCELINE MALNUTRITION Active 09-10 00:00: 00 HYPERLIPIDEM IA, UNSPECIFIED Active 09-10 00:00: 00 BENIGN PROSTATIC HYPERPLASIA WITHOUT LOWER URINRY TRACT SYMP Active 1- 00:00: 00 INSOMNIA, UNSPECIFIED Active 1- 00:00: 00 PERSONAL HISTORY OF NICOTINE DEPENDENCE Active 09-10 00:00: 00 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 OF ANTITHROMBOT ICS/ANTIPLAT ELETS Active [...] release 24 hr 08-10 00:00: 00 Yes [id number] UNHTNAVAILA BLE 100 mg DAILY 100 mg DAILY (route: oral) Med Classific ation: Cardiovas cular Therapy Agents Aspirin Childrens 81 mg chewable tablet 09-10 00:00: 00 Yes [id number] NSAID 81 mg DAILY 81 mg DAILY (route: oral) Med Classific ation: Hematolog ical Agents bumetanide 1 mg tablet 09-10 00:00: 00 Yes [id number] DIURETIC 1 mg DAILY 1 mg BRIDGER Y (route: oral) Med Classific ation: Cardiovas cular Therapy Agents Colace 100 mg capsule 09-10 00:00: 00 Yes [id number] STOOL SOFTNER 100 mg 2 TIMES DAILY 100 mg 2 TIMES DAILY (route: oral) Med Classific ation: Gastroint estinal Therapy Agents finasteride 5 mg tablet 09-10 00:00: 00 Yes [id number] BPH 2.5 mg EVERY PM 2.5 mg EVERY PM (route: oral) Med Classific ation: Genitouri nary Therapy hydralazine 50 mg tablet 09-10 00:00: 00 Yes [id number] HTN 2 tablet 3 TIMES DAILY 2 tablet 3 TIMES DAILY (route: oral) Med Classific ation: Cardiovas cular Therapy Agents melatonin 3 mg capsule 09-10 00:00: 00 Yes [id number] INSOMNIA 3 mg BEDTIME 3 mg BEDTIME (route: oral) Med Classific ation: Central Nervous System Agents nifedipine ER 60 mg tablet,exte nded release - 00:00: 00 Yes [id number] HTN 120 mg DAILY 120 mg DAILY (route: oral) Med Classific ation: Cardiovas cular Therapy Agents Plavix 75 mg tablet 2-15 00:00: 00 Yes [id number] ANTICOAGULA NT. HTN 75 mg DAILY 75 mg DAILY (route: oral) Med Classific ation: Hematolog ical Agents spironolact one 50 mg tablet 2-15 00:00: 00 11-24 00:00 :00 No [id number] HTN 50 mg DAILY 50 mg DAILY (route: oral) Med Classific ation: Cardiovas cular Therapy Agents terazosin 1 mg capsule 2-15 00:00: 00 Yes [id number] HTN 1 mg DAILY 1 mg BRIDGER Y (route: oral) Med Classific ation: Cardiovas cular Therapy Agents terazosin 5 mg capsule 2-15 00:00: 00 Yes [id number] HTN 5 mg BEDTIME 5 mg BEDTIME (route: oral) Med Classific ation: Cardiovas cular Therapy Agents Vitamin B-12 250 mcg tablet 2-15 00:00: 00 Yes [id number] SUPPLEMENT 250 mcg EVERY PM 250 mcg EVERY PM (route: oral) Med Classific ation: Electroly te Balance-N utritiona l Products acetaminoph en 325 mg tablet 2-18 00:00: 00 Yes [id number] pain 2 tablet EVERY 6 HOURS 2 tablet EVERY 6 HOURS (route: oral) Med Classific ation: Analgesic , Anti-infl ammatory or Antipyret ic clonidine HCl 0.1 mg tablet 3-14 00:00: 00 Yes [id number] HTN 0.1 mg 2 TIMES DAILY 0.1 mg 2 TIMES DAILY (route: oral) Med Classific ation: Cardiovas cular Therapy Agents spironolact one 50 mg tablet 11-24 00:00: 00 Yes [id number] HTN 1.5 tablet DAILY 1.5 tablet DAILY (route: oral) Med Classific ation: Cardiovas cular Therapy Agents Vital Signs Vital Name Observation Time Observation Value Commen ts Temperature 2024-11-24 16:03:00.000 98 [degF] Temperature 2024-11-17 14:59:00.000 97.8 [degF] Pulse 2024-11-24 16:03:00.000 64 /min Pulse 2024-11-17 14:59:00.000 60 /min O2 Saturation (%) 2024-11-24 16:03:00.000 98 % O2 Saturation (%) 2024-11-17 14:59:00.000 98 % Respirations 2024-11-24 16:03:00.000 18 /min Respirations 2024-11-17 14:59:00.000 18 /min Systolic Blood Pressure 2024-11-24 16:03:00.000 198 mm [Hg] Systolic Blood Pressure 2024-11-17 14:59:00.000 198 mm [Hg] Diastolic Blood Pressure 2024-11-24 16:03:00.000 98 mm [Hg] Diastolic Blood Pressure 2024-11-17 14:59:00.000 90 mm [Hg] Plan of Treatment Planned Activity Planned Date Details Comments Future Scheduled Test RN TO OBSE RVE, ASSESS, EVALUATE, AND DEVELOP AN INDIVIDUALIZED PLAN OF CARE. AGENCY MAY ACCEPT ORDERS FROM CONSULTING PHYSICIANS PO RN TO OBSERVE AND ASSESS, ORIENTAL RUG REPAIRER/GREY STOCK RECORDER TO OBSERVE FOR RISK FOR FALLS AND INSTRUCT IN FALL PREVENTION, HOME SAFETY, MEDICATION MANAGEMENT, INFECTION PREVENTION, AND NUTRITION MANAGEMENT. RN/ORIENTAL RUG REPAIRER/GREY STOCK RECORDER NURSE MAY PERFORM O2 SATURATION LEVEL ON ADMISSION AND PRN FOR FOR RN TO ASSESS/ORIENTAL RUG REPAIRER TO OBSERVE PATIENT, WITH NOTIFICATION TO THE PHYSICIAN IF SATURATION IS 90% IN THE ABSENCE OF MORE SPECIFIC PARAMETERS FROM THE PHYSICIAN. AGENCY MAY PERFORM A RESUMPTION OF CARE VISIT FOLLOWING ANY HOSPITAL ADMISSION. RN/ORIENTAL RUG REPAIRER/GREY STOCK RECORDER TO MONITOR CO-MORBID CONDITIONS LISTED ON THE PLAN OF CARE AND ANY NEW CONDITIONS THAT PRESENT THEMSELVES DURING THIS EPISODE TO IDENTIFY CHANGES AND INTERVENE TO MINIMIZE COMPLICATIONS. [code = RN TO OBSERVE, ASSESS, EVALUATE, AND DEVELOP AN INDIVIDUALIZED PLAN OF CARE. AGENCY MAY ACCEPT ORDERS FROM CONSULTING PHYSICIANS PO RN TO OBSERVE AND ASSESS, ORIENTAL RUG REPAIRER/GREY STOCK RECORDER TO OBSERVE FOR RISK FOR FALLS AND INSTRUCT IN FALL PREVENTION, HOME SAFETY, MEDICATION MANAGEMENT, INFECTION PREVENTION, AND NUTRITION MANAGEMENT. RN/ORIENTAL RUG REPAIRER/GREY STOCK RECORDER NURSE MAY PERFORM O2 SATURATION LEVEL ON ADMISSION AND PRN FOR FOR RN TO ASSESS/ORIENTAL RUG REPAIRER TO OBSERVE PATIENT, WITH NOTIFICATION TO THE PHYSICIAN IF SATURATION IS 90% IN THE ABSENCE OF MORE SPECIFIC PARAMETERS FROM THE PHYSICIAN. AGENCY MAY PERFORM A RESUMPTION OF CARE VISIT FOLLOWING ANY HOSPITAL ADMISSION. RN/ORIENTAL RUG REPAIRER/GREY STOCK RECORDER TO MONITOR CO-MORBID CONDITIONS LISTED ON THE PLAN OF CARE AND ANY NEW CONDITIONS THAT PRESENT THEMSELVES DURING THIS EPISODE TO IDENTIFY CHANGES AND INTERVENE TO MINIMIZE COMPLICATIONS.] Future Scheduled Test COPD MONIT ORING RN/GREY STOCK RECORDER/ORIENTAL RUG REPAIRER TO MONITOR FOR SIGNS AND SYMPTOMS OF COPD EXACERBATION, MONITOR FOR ADHERENCE TO MEDICATION AND COPD MANAGEMENT. [code = COPD MONITORING RN/GREY STOCK RECORDER/ORIENTAL RUG REPAIRER TO MONITOR FOR SIGNS AND SYMPTOMS OF COPD EXACERBATION, MONITOR FOR ADHERENCE TO MEDICATION AND COPD MANAGEMENT.] Future Scheduled Test MEDICATION MANAGEMENT; RN/ORIENTAL RUG REPAIRER/GREY STOCK RECORDER TO REVIEW MEDICATIONS FOR INTERACTIONS, EFFECTIVENESS OF DRUG THERAPY, AND SIGNS/SYMPTOMS OF ADVERSE REACTIONS. MAY INSTRUCT AND REINFORCE MEDICATION TEACHING RELATED TO THE USE OF MEDICATIONS, DOSAGE, FREQUENCY, PURPOSE, SIDE EFFECTS, AND TO REPORT COMPLICATIONS. [code = MEDICATION MANAGEMENT; RN/ORIENTAL RUG REPAIRER/GREY STOCK RECORDER TO REVIEW MEDICATIONS FOR INTERACTIONS, EFFECTIVENESS OF DRUG THERAPY, AND SIGNS/SYMPTOMS OF ADVERSE REACTIONS. MAY INSTRUCT AND REINFORCE MEDICATION TEACHING RELATED TO THE USE OF MEDICATIONS, DOSAGE, FREQUENCY, PURPOSE, SIDE EFFECTS, AND TO REPORT COMPLICATIONS.] Future Scheduled Test RISK FOR H OSPITALIZATION; RN TO ASSESS/TEACH, GREY STOCK RECORDER/ORIENTAL RUG REPAIRER TO OBSERVE/TEACH PATIENT/CAREGIVER ON RISK FOR HOSPITALIZATION/EMERGENCY ROOM VISITS, TEACH SIGNS AND SYMPTOMS THAT PUT PATIENT AT RISK, WHEN TO NOTIFY NURSE/PHYSICIAN OF COMPLICATIONS/DECLINE, AND WHEN TO CALL 911. [code = RISK FOR HOSPITALIZATION; RN TO ASSESS/TEACH, GREY STOCK RECORDER/ORIENTAL RUG REPAIRER TO OBSERVE/TEACH PATIENT/CAREGIVER ON RISK FOR HOSPITALIZATION/EMERGENCY ROOM VISITS, TEACH SIGNS AND SYMPTOMS THAT PUT PATIENT AT RISK, WHEN TO NOTIFY NURSE/PHYSICIAN OF COMPLICATIONS/DECLINE, AND WHEN TO CALL 911.] Future Scheduled Test SKIN INTEG RITY RN TO ASSESS AND TEACH, ORIENTAL RUG REPAIRER/GREY STOCK RECORDER TO OBSERVE AND TEACH INTEGUMENTARY STATUS TO IDENTIFY CHANGES AND INTERVENE TO MINIMIZE COMPLICATIONS. PROVIDE SKILLED TEACHING OF GENERAL WOUND AND SKIN CARE AND PREVENTION RELATED TO POTENTIAL FOR OR ACTUAL ALTERED SKIN INTEGRITY [code = SKIN INTEGRITY RN TO ASSESS AND TEACH, ORIENTAL RUG REPAIRER/GREY STOCK RECORDER TO OBSERVE AND TEACH INTEGUMENTARY STATUS TO IDENTIFY CHANGES AND INTERVENE TO MINIMIZE COMPLICATIONS. PROVIDE SKILLED TEACHING OF GENERAL WOUND AND SKIN CARE AND PREVENTION RELATED TO POTENTIAL FOR OR ACTUAL ALTERED SKIN INTEGRITY ] Future Scheduled Test CARDIOVASC ULAR SYSTEM; RN TO ASSESS/TEACH, ORIENTAL RUG REPAIRER/GREY STOCK RECORDER TO OBSERVE/TEACH RELATED TO ALTERED CARDIOVASCULAR STATUS TO MINIMIZE COMPLICATIONS AND REDUCE HOSPITALIZATION. [code = CARDIOVASCULAR SYSTEM; RN TO ASSESS/TEACH, ORIENTAL RUG REPAIRER/GREY STOCK RECORDER TO OBSERVE/TEACH RELATED TO ALTERED CARDIOVASCULAR STATUS TO MINIMIZE COMPLICATIONS AND REDUCE HOSPITALIZATION.] Future Scheduled Test HYPERTENSI ON MANAGEMENT; RN TO ASSESS AND TEACH, ORIENTAL RUG REPAIRER/GREY STOCK RECORDER TO OBSERVE AND TEACH WARNING SIGNS AND SYMPTOMS TO AVOID HOSPITALIZATION. [code = HYPERTENSION MANAGEMENT; RN TO ASSESS AND TEACH, ORIENTAL RUG REPAIRER/GREY STOCK RECORDER TO OBSERVE AND TEACH WARNING SIGNS AND SYMPTOMS TO AVOID HOSPITALIZATION.] Future Scheduled Test PAIN MANAG EMENT; RN TO ASSESS AND TEACH, GREY STOCK RECORDER/ORIENTAL RUG REPAIRER TO OBSERVE AND TEACH AND PROVIDE EDUCATION ON PAIN MANAGEMENT TECHNIQUES. [code = PAIN MANAGEMENT; RN TO ASSESS AND TEACH, GREY STOCK RECORDER/ORIENTAL RUG REPAIRER TO OBSERVE AND TEACH AND PROVIDE EDUCATION ON PAIN MANAGEMENT TECHNIQUES.] Future Scheduled Test FALL REDUC TION MANAGEMENT; RN TO ASSESS AND OBSERVE, ORIENTAL RUG REPAIRER/GREY STOCK RECORDER TO OBSERVE FALL RISK FACTORS AND EDUCATE PATIENT/CAREGIVER ON STRATEGIES TO MINIMIZE THE RISK OF FALLING. [code = FALL REDUCTION MANAGEMENT; RN TO ASSESS AND OBSERVE, ORIENTAL RUG REPAIRER/GREY STOCK RECORDER TO OBSERVE FALL RISK FACTORS AND EDUCATE PATIENT/CAREGIVER ON STRATEGIES TO MINIMIZE THE RISK OF FALLING.] Future Scheduled Test PRN VISITS ; NUMBER OF RN/ORIENTAL RUG REPAIRER/GREY STOCK RECORDER VISITS: 3 FOR CP ASSESSMENT [code = PRN VISITS; NUMBER OF RN/ORIENTAL RUG REPAIRER/GREY STOCK RECORDER VISITS: 3 FOR CP ASSESSMENT] Goal 2024-11-08 [...] FALL REDUCTION SELF-MANAGEMENT AND LIFE-STYLE CHANGES BY 01-07-25 Goal Provider Goal - Encounters Start Date/Time End Date/Time Encounter Type Admission Type Attending [facility] Care Department Encounter ID Discharge Date Discharge Status Discharge Condition Discharge Reason Percent Goals Met 2024-11-09 00:00:00 2025-01-07 00:00:00 Outpatient RECERTIFIC ATION FABIANA BARON [facility] [id number] 50.00
== END 2024-11-30 10:13 | disposition home or self-care (01) ==
LOC: HO.XRAY 10:12
PROVIDERS: Internal Medicine Nephrology; PCP Internal Medicine
DX: Z01.818 Encounter for other preprocedural examination (principal); I10 Essential (primary) hypertension; I25.10 Atherosclerotic heart disease of native coronary artery without angina pectoris; R06.02 Shortness of breath; N18.4 Chronic kidney disease, stage 4 (severe)
CPT/HCPCS: 36415; 71046; 80051; 82310; 82565; 83880; 84520; 85045; 93005; 99212

== ENCOUNTER 2024-11-30 10:12 | Outpatient (AMB) | payer MEDICARE, SELFPAY ==
--- NOTE | 2024-11-30 10:20 | MHC.PC.OV ---
Vital Signs 11/30/24 10:21 11/30/24 10:29 11/30/24 11:07 Height 6 ft Weight 135 lb 4 oz BMI 18.3 BP 100/62 120/70 160/78 H Blood Pressure Location Lt brachial Lt brachial Lt brachial Position Sitting Sitting Sitting Pulse 41 L Pulse Source Pulse Oximeter Temp 97.1 F Temp Source Temporal Artery Scan Pulse Oximetry (%) 99 Oxygen Delivery Method Room Air Intake Visit Reasons: Pre-Op Cataract Surgery 12/29 Left eye Intake Note: Patient is here for a Pre-op for Cataract surgery scheduled with [facility] (P: [phone]) on left eye 12/29/24 and right 01/12/25. Devops Solutions Architect Required: No College President: Present Accompanied by: Son Allergies Penicillins Adverse Reaction (Intermediate, Verified 11/30/24 10:21) rash Medication List - Last Reconciled 11/30/24 by Beverly Scott PA-C aspirin (Adult Aspirin Regimen) 81 mg PO DAILY@0600 bumetanide 1 mg PO DAILY clonidine HCl 0.1 mg PO BID 90 days clopidogrel (Plavix) 75 mg PO DAILY cyanocobalamin (vitamin B-12) 500 mcg PO DAILY@1800 hydralazine 100 mg See Protocol PO BID 90 days metoprolol succinate ER 100 mg PO DAILY gvcfsgex-porpezwjw-EU 3.5-10,000-1 mg/mL-unit/mL-% 3 drps otic (ears) Q8H 5 days nifedipine ER 120 mg (2 x 60 mg) PO DAILY 30 days spironolactone 75 mg (1.5 x 50 mg) PO DAILY 90 days terazosin 5 mg PO BEDTIME 90 days Tobacco use date assessed: 11/30/24 Fall risk assessment: No Falls in past year Last assessed Fall Risk: 11/30/24 Dental Screening Dental Screen Date: 08/03/24 HPI Pre-Op Cataract Surgery 12/29 Left eye HPI Details 69-year-old male with past medical history of hypertension, COPD, coronary artery disease, hypercholesterolemia, prostate cancer and chronic kidney disease last seen 10/2024 coming in for cataract pre-op. [facility] 12/29/2024 left eye and right eye 01/12/2025. Chronic kidney disease: Patient is currently following with Nephrology spironolactone recently increased and otherwise advised to continue on all current medications. Coronary artery disease: Currently managing blood pressure and on dual antiplatelet therapy with aspirin and clopidogrel. Hypertension: Patient having labile blood pressures is following with Nephrology for this concern and recently increased spironolactone. Difficulty in breathing when taking deep breaths, present for one to two months, potentially unresolved from past pneumonia, has worsened since leaving the hospital, marked by additional shortness of breath. After ceasing tobacco use post-hospitalization, respiratory issues persist despite non-smoking status. [facility] Medical History Renal insufficiency History of stent insertion of renal artery CKD (chronic kidney disease) Subarachnoid hemorrhage Tubular adenoma COVID-19 vaccination refused History of testicular cancer Peripheral arterial disease Hypercholesterolemia Coronary artery disease Tobacco abuse COPD (chronic obstructive pulmonary disease) Hypertension Surgical History History of surgery Hx of colonoscopy Hx of prostate biopsy History of tonsillectomy History of testicular surgery Family History Father No problems noted. Mother No problems noted. Maternal Grandmother Myocardial infarction Brother In good health Sister In good health Son In good health Son In good health Daughter In good health Sister Diabetes Social History Household Members: Spouse, Significant Other and Family Household Members Other:: 6 Housing: House Are you a primary home care specialist to a significant other at home: No Do you presently have visiting nurse or other home services: No Alcohol intake: former Patient Tobacco Use Status: Former Tobacco user Tobacco use type: Cigarette Cigarette Packs Per Day: 0.5 Cigarettes Per Day: 2 Years Smoked: 53 years- 10/PER DAY stopped smoking 07/2024 e-Cigarette/Vaping Use: Never Used Second Hand Smoke Exposure: Yes service: No Current occupational status: employed Current occupational exposures/hazards: No Cognitive needs: No Hearing needs: No Vision needs: Yes Questionnaire Thrive Questionnaire Date Thrive assessed: 08/21/24 BIANCA-7 AMB Questionnaire BIANCA-7 Date BIANCA - 7 assessed: 08/03/24 Source: Developed by Drs. Tad L. StanleyJennie acuna, Tello Mendoza and colleagues, with an educational noemi from [employer]. Review of Systems Const Denies body aches, Denies chills, Denies fever(s), Denies headache(s) and Denies poor appetite Eyes Reports no additional complaints ENT Denies dysphagia, Denies dizziness, Denies headache(s) and Denies odynophagia Card Denies chest pain, Denies syncope, Denies edema, Denies irregular heart rhythm, Denies lightheadedness and Reports dyspnea Resp Details: clear phlegm with cough Reports cough and Reports dyspnea GI Denies abdominal pain, Denies constipation, Denies dysphagia, Denies diarrhea, Denies nausea, Denies odynophagia and Denies vomiting Reports no additional complaints Musc Reports no additional complaints and Denies abnormal gait Skin/Breast Reports system reviewed and no additional complaints, except as documented Neuro Denies abnormal gait, Denies dizziness, Denies syncope and Denies headache(s) Psych Reports no additional complaints Physical exam (Primary Care) Vital Signs: Last Vital Signs Temp 97.1 F 11/30/24 10:21 Pulse 41 L 11/30/24 10:21 BP 160/78 H 11/30/24 11:07 Pulse Ox 99 11/30/24 10:21 Oxygen Delivery Method Room Air 11/30/24 10:21 BMI result Body Mass Index 18.3 Tobacco/Smoking Status: Tobacco use Status Tobacco use date assessed 11/30/24 11/30/24 10:24 Patient Tobacco Use Status Former Tobacco user 11/30/24 10:24 Tobacco use type Cigarette 11/30/24 10:24 e-Cigarette/Vaping Use Never Used 11/30/24 10:24 Thrive Assessment: Date of Thrive Assessment Date Thrive assessed 08/21/24 11/30/24 10:24 Const General: cooperative, healthy appearing, comfortable and no acute distress Orientation/consciousness: patient oriented x3 HENMT Head: Yes normocephalic Ears: hearing grossly normal bilaterally General nose exam: Normal external nose present Eyes General: appearance normal, both eyes and all related structures Conjunctivae: conjunctivae normal Neck Neck: Yes full ROM and Yes no lymphadenopathy Resp Effort & Inspection: normal respiratory effort Auscultation: no crackles, no rales, no rhonchi, no wheezes and diminished lung sounds on the left in the lower lung morrissey Cardio Rate: regular rate Rhythm: regular rhythm Skin General skin exam: no rashes or lesions noted Neuro General: patient oriented x3 Gait exam (Neuro): Normal gait present Extrem General: Yes normal to inspection, Yes full ROM and No edema Psych Affect: normal affect Attitude: cooperative Insight: Good insight present (Psych) Judgement: Good judgement present (Psych) Coding Level of Care Code Est Pt Level 4 (69860) Diagnoses Pre-op evaluation Z01.818 Shortness of breath R06.02 Depression F32.A Assessment & Plan Assessment & Plan (1) Pre-op evaluation: Code(s): Z01.818 - Encounter for other preprocedural examination Category: Medical Plan: Regarding preop clearance, the patient is at moderate risk for proposed surgery due to age and comorbidities. Reviewed with the patient that no surgery is completely free of risk and that this examination is to assist the surgeon in reviewing informed consent. As modern cataract surgeries rarely cause any bleeding, he is advised that he should continue on his low dose Aspirin 81 mg QD; he should also be able to continue on his Clopidogrel 75 mg QD? but is advised that I will leave it up to the discretion of the dialysis patient care technician performing the procedure if he is comfortable with patient being on Clopidogrel or not for his eye surgery Plan to obtain chest x-ray and EKG as well as blood work for further evaluation prior to surgical clearance. Given patient's worsening shortness of breath and elevated BNP would recommend cardiology clearance prior to surgery. (2) Shortness of breath: Code(s): R06.02 - Shortness of breath Category: Medical Plan: Patient having worsening shortness of breath over the last several months. Plan to obtain BNP and chest x-ray for further evaluation. Diminished lung sounds left lower lung base. BNP elevation in the last two weeks. Chest x-ray showing bronchopneumonia advised patient he will need to hold off on surgery until this infection can be cleared. (3) Depression: Code(s): F32.A - Depression, unspecified Category: Medical Plan: Patient having worsening depression and difficult with motivation plan to start on mirtazapine at bedtime for sleep, appetite stimulant and depression. Reviewed with patient red flag symptoms and also advised that this medication may cause increased risk of falls into use caution when standing at bedtime. Advised patient to reach out if he develops any side effects. Plan I have reviewed the patient?s multiple chronic conditions and addressed concerns about shortness of breath and energy levels. We will pursue a chest x-ray to check for residual lung fluid from the past pneumonia episode, which may be affecting his respiratory function. Past cardiovascular interventions will be considered for cataract surgery clearance, supported by an EKG. The patient may benefit from an antidepressant to address low energy and motivation; risks and plans were discussed. Regular follow-ups will ensure a comprehensive approach to his chronic and acute issues, including the impact of past CABG and cessation of smoking on overall health. This note was constructed using voice recognition software. While every effort has been made to ensure accuracy and patient access manager, still areas may have been included sometimes these areas may affect the content or meeting of the given symptoms. Total time spent caring for the patient today was 20 minutes. This includes time spent before the visit reviewing the chart, time spent during the visit, and time spent after the visit and documentation. Orders: Orders ECG 12 lead EKG Today I25.10 - Atherosclerotic heart disease of [place] coronary artery without angina pectoris, Z01.818 - Encounter for other preprocedural examination B Type Natriuretic Peptide Today R06.02 - Shortness of breath XR chest 2V Today R06.02 - Shortness of breath Medications: New mirtazapine 7.5 mg PO BEDTIME 30 tabs 1RF
[2024-11-30 10:21] VITALS: BP 100/62; PULSE 41; TEMP 36.2; O2SAT 99; BMI 18.3
[2024-11-30 10:29] VITALS: BP 120/70
[2024-11-30 11:07] VITALS: BP 160/78
== END 2024-11-30 11:18 | disposition home or self-care (01) ==
LOC: HO.HMCH 10:13
PROVIDERS: PCP Internal Medicine
DX: Z01.818 Encounter for other preprocedural examination (principal); R06.02 Shortness of breath; F32.A Depression, unspecified

== ENCOUNTER → 2024-11-30 11:27 | Outpatient (BNV) | payer MEDICARE, SELFPAY | PROVIDERS: PCP Internal Medicine; Visit Provider Internal Medicine | DX: I44.0 Atrioventricular block, first degree (principal); I49.3 Ventricular premature depolarization | CPT/HCPCS: 93010 ==

== ENCOUNTER → 2024-11-30 11:41 | Outpatient (BNV) | payer MEDICARE, SELFPAY | PROVIDERS: PCP Internal Medicine; Visit Provider Radiology Diagnostic Radiology | DX: J44.9 Chronic obstructive pulmonary disease, unspecified (principal) | CPT/HCPCS: 71046 ==

== ENCOUNTER 2024-12-13 08:10 | Outpatient (AMB) | payer MEDICARE, SELFPAY ==
--- OUTSIDE RECORDS SUMMARY | 2024-12-13 08:14 | XMS_ITS | Clinical Summary ---
Author Organization Unknown Care Team Providers Care Constitutional Law Professor Name Role Phone PO ASIA, HARMAN Unavailable Unavaila jeff BARON RN, FABIANA Unavailable Unavailable CONDINO PIPE JOINTS SUPERVISOR/DENISE, HOLLAND Unavailable Unav ailable GABIIAK OT, ALFREDO Unavailable Unavailabl e DEEDEE GLUELINE WORKER, ADWOA Unavailable Unavailable HU PT, JEAN MARIE Unavailable Unavail able Payers Payer Name Policy Type Policy Number Effective Date Expira tion Date MEDICARE.NGS.PDGM [id number] Problems Condition Name Condition Details Condition Category [...] 09-10 00:00: 00 ATHSCL HEART DISEASE OF [place] CORONARY ARTERY W/O ANG PCTRS Active 09-10 [...] OF NICOTINE DEPENDENCE Active 09-10 00:00: 00 RETIREMENT (CURRENT) USE OF ANTITHROMBOT ICS/ANTIPLAT ELETS Active [...] release 24 hr 08-10 00:00: 00 Yes [id number] UNHTNAVAILA BLE 100 mg DAILY 100 mg DAILY (route: oral) Med Classific ation: Cardiovas cular Therapy Agents Aspirin Childrens 81 mg chewable tablet 09-10 00:00: 00 Yes [id number] NSAID 81 mg DAILY 81 mg DAILY (route: oral) Med Classific ation: Hematolog ical Agents bumetanide 1 mg tablet 09-10 00:00: 00 Yes [id number] DIURETIC 1 mg DAILY 1 mg BRIDGER Y (route: oral) Med Classific ation: Cardiovas cular Therapy Agents Colace 100 mg capsule 09-10 00:00: 00 Yes [id number] STOOL SOFTNER 100 mg 2 TIMES DAILY 100 mg 2 TIMES DAILY (route: oral) Med Classific ation: Gastroint estinal Therapy Agents finasteride 5 mg tablet 09-10 00:00: 00 Yes [id number] BPH 2.5 mg EVERY PM 2.5 mg EVERY PM (route: oral) Med Classific ation: Genitouri nary Therapy hydralazine 50 mg tablet 09-10 00:00: 00 Yes [id number] HTN 2 tablet 3 TIMES DAILY 2 tablet 3 TIMES DAILY (route: oral) Med Classific ation: Cardiovas cular Therapy Agents melatonin 3 mg capsule 09-10 00:00: 00 Yes [id number] INSOMNIA 3 mg BEDTIME 3 mg BEDTIME (route: oral) Med Classific ation: Central Nervous System Agents nifedipine ER 60 mg tablet,exte nded release - 00:00: 00 Yes [id number] HTN 120 mg DAILY 120 mg DAILY (route: oral) Med Classific ation: Cardiovas cular Therapy Agents Plavix 75 mg tablet 2-15 00:00: 00 Yes [id number] ANTICOAGULA NT. HTN 75 mg DAILY 75 mg DAILY (route: oral) Med Classific ation: Hematolog ical Agents spironolact one 50 mg tablet 2-15 00:00: 00 11-24 00:00 :00 No [id number] HTN 50 mg DAILY 50 mg DAILY (route: oral) Med Classific ation: Cardiovas cular Therapy Agents terazosin 1 mg capsule 2-15 00:00: 00 Yes [id number] HTN 1 mg DAILY 1 mg BRIDGER Y (route: oral) Med Classific ation: Cardiovas cular Therapy Agents terazosin 5 mg capsule 2-15 00:00: 00 Yes [id number] HTN 5 mg BEDTIME 5 mg BEDTIME (route: oral) Med Classific ation: Cardiovas cular Therapy Agents Vitamin B-12 250 mcg tablet 2-15 00:00: 00 Yes [id number] SUPPLEMENT 250 mcg EVERY PM 250 mcg EVERY PM (route: oral) Med Classific ation: Electroly te Balance-N utritiona l Products acetaminoph en 325 mg tablet 2-18 00:00: 00 Yes [id number] pain 2 tablet EVERY 6 HOURS 2 tablet EVERY 6 HOURS (route: oral) Med Classific ation: Analgesic , Anti-infl ammatory or Antipyret ic clonidine HCl 0.1 mg tablet 3-14 00:00: 00 Yes [id number] HTN 0.1 mg 2 TIMES DAILY 0.1 mg 2 TIMES DAILY (route: oral) Med Classific ation: Cardiovas cular Therapy Agents spironolact one 50 mg tablet - 00:00: 00 Yes [id number] HTN 1.5 tablet DAILY 1.5 tablet DAILY (route: oral) Med Classific ation: Cardiovas cular Therapy Agents Vital Signs Vital Name Observation Time Observation Value Commen ts Temperature 2024-12-09 09:16:00.000 98 [degF] Temperature 2024-12-01 16:04:00.000 98.5 [degF] Temperature 2024-11-24 16:03:00.000 98 [degF] Temperature 2024-11-17 14:59:00.000 97.8 [degF] Pulse 2024-12-09 09:16:00.000 68 /min Pulse 2024-12-01 16:04:00.000 84 /min Pulse 2024-11-24 16:03:00.000 64 /min Pulse 2024-11-17 14:59:00.000 60 /min O2 Saturation (%) 2024-12-09 09:16:00.000 96 % O2 Saturation (%) 2024-12-01 16:04:00.000 96 % O2 Saturation (%) 2024-11-24 16:03:00.000 98 % O2 Saturation (%) 2024-11-17 14:59:00.000 98 % Respirations 2024-12-09 09:16:00.000 18 /min Respirations 2024-12-01 16:04:00.000 18 /min Respirations 2024-11-24 16:03:00.000 18 /min Respirations 2024-11-17 14:59:00.000 18 /min Systolic Blood Pressure 2024-12-09 09:16:00.000 158 mm [Hg] Systolic Blood Pressure 2024-12-01 16:04:00.000 110 mm [Hg] Systolic Blood Pressure 2024-11-24 16:03:00.000 198 mm [Hg] Systolic Blood Pressure 2024-11-17 14:59:00.000 198 mm [Hg] Diastolic Blood Pressure 2024-12-09 09:16:00.000 82 mm [Hg] Diastolic Blood Pressure 2024-12-01 16:04:00.000 68 mm [Hg] Diastolic Blood Pressure 2024-11-24 16:03:00.000 98 mm [Hg] Diastolic Blood Pressure 2024-11-17 14:59:00.000 90 mm [Hg] Plan of Treatment Planned Activity Planned Date Details Comments Future Scheduled Test RN TO OBSE RVE, ASSESS, EVALUATE, AND DEVELOP AN INDIVIDUALIZED PLAN OF CARE. AGENCY MAY ACCEPT ORDERS FROM CONSULTING PHYSICIANS PO RN TO OBSERVE AND ASSESS, LAB SYSTEMS ANALYST/FARM DEMONSTRATOR TO OBSERVE FOR RISK FOR FALLS AND INSTRUCT IN FALL PREVENTION, HOME SAFETY, MEDICATION MANAGEMENT, INFECTION PREVENTION, AND NUTRITION MANAGEMENT. RN/LAB SYSTEMS ANALYST/FARM DEMONSTRATOR NURSE MAY PERFORM O2 SATURATION LEVEL ON ADMISSION AND PRN FOR FOR RN TO ASSESS/LAB SYSTEMS ANALYST TO OBSERVE PATIENT, WITH NOTIFICATION TO THE PHYSICIAN IF SATURATION IS 90% IN THE ABSENCE OF MORE SPECIFIC PARAMETERS FROM THE PHYSICIAN. AGENCY MAY PERFORM A RESUMPTION OF CARE VISIT FOLLOWING ANY HOSPITAL ADMISSION. RN/LAB SYSTEMS ANALYST/FARM DEMONSTRATOR TO MONITOR CO-MORBID CONDITIONS LISTED ON THE PLAN OF CARE AND ANY NEW CONDITIONS THAT PRESENT THEMSELVES DURING THIS EPISODE TO IDENTIFY CHANGES AND INTERVENE TO MINIMIZE COMPLICATIONS. [code = RN TO OBSERVE, ASSESS, EVALUATE, AND DEVELOP AN INDIVIDUALIZED PLAN OF CARE. AGENCY MAY ACCEPT ORDERS FROM CONSULTING PHYSICIANS PO RN TO OBSERVE AND ASSESS, LAB SYSTEMS ANALYST/FARM DEMONSTRATOR TO OBSERVE FOR RISK FOR FALLS AND INSTRUCT IN FALL PREVENTION, HOME SAFETY, MEDICATION MANAGEMENT, INFECTION PREVENTION, AND NUTRITION MANAGEMENT. RN/LAB SYSTEMS ANALYST/FARM DEMONSTRATOR NURSE MAY PERFORM O2 SATURATION LEVEL ON ADMISSION AND PRN FOR FOR RN TO ASSESS/LAB SYSTEMS ANALYST TO OBSERVE PATIENT, WITH NOTIFICATION TO THE PHYSICIAN IF SATURATION IS 90% IN THE ABSENCE OF MORE SPECIFIC PARAMETERS FROM THE PHYSICIAN. AGENCY MAY PERFORM A RESUMPTION OF CARE VISIT FOLLOWING ANY HOSPITAL ADMISSION. RN/LAB SYSTEMS ANALYST/FARM DEMONSTRATOR TO MONITOR CO-MORBID CONDITIONS LISTED ON THE PLAN OF CARE AND ANY NEW CONDITIONS THAT PRESENT THEMSELVES DURING THIS EPISODE TO IDENTIFY CHANGES AND INTERVENE TO MINIMIZE COMPLICATIONS.] Future Scheduled Test COPD MONIT ORING RN/FARM DEMONSTRATOR/LAB SYSTEMS ANALYST TO MONITOR FOR SIGNS AND SYMPTOMS OF COPD EXACERBATION, MONITOR FOR ADHERENCE TO MEDICATION AND COPD MANAGEMENT. [code = COPD MONITORING RN/FARM DEMONSTRATOR/LAB SYSTEMS ANALYST TO MONITOR FOR SIGNS AND SYMPTOMS OF COPD EXACERBATION, MONITOR FOR ADHERENCE TO MEDICATION AND COPD MANAGEMENT.] Future Scheduled Test MEDICATION MANAGEMENT; RN/LAB SYSTEMS ANALYST/FARM DEMONSTRATOR TO REVIEW MEDICATIONS FOR INTERACTIONS, EFFECTIVENESS OF DRUG THERAPY, AND SIGNS/SYMPTOMS OF ADVERSE REACTIONS. MAY INSTRUCT AND REINFORCE MEDICATION TEACHING RELATED TO THE USE OF MEDICATIONS, DOSAGE, FREQUENCY, PURPOSE, SIDE EFFECTS, AND TO REPORT COMPLICATIONS. [code = MEDICATION MANAGEMENT; RN/LAB SYSTEMS ANALYST/FARM DEMONSTRATOR TO REVIEW MEDICATIONS FOR INTERACTIONS, EFFECTIVENESS OF DRUG THERAPY, AND SIGNS/SYMPTOMS OF ADVERSE REACTIONS. MAY INSTRUCT AND REINFORCE MEDICATION TEACHING RELATED TO THE USE OF MEDICATIONS, DOSAGE, FREQUENCY, PURPOSE, SIDE EFFECTS, AND TO REPORT COMPLICATIONS.] Future Scheduled Test RISK FOR H OSPITALIZATION; RN TO ASSESS/TEACH, FARM DEMONSTRATOR/LAB SYSTEMS ANALYST TO OBSERVE/TEACH PATIENT/CAREGIVER ON RISK FOR HOSPITALIZATION/EMERGENCY ROOM VISITS, TEACH SIGNS AND SYMPTOMS THAT PUT PATIENT AT RISK, WHEN TO NOTIFY NURSE/PHYSICIAN OF COMPLICATIONS/DECLINE, AND WHEN TO CALL 911. [code = RISK FOR HOSPITALIZATION; RN TO ASSESS/TEACH, FARM DEMONSTRATOR/LAB SYSTEMS ANALYST TO OBSERVE/TEACH PATIENT/CAREGIVER ON RISK FOR HOSPITALIZATION/EMERGENCY ROOM VISITS, TEACH SIGNS AND SYMPTOMS THAT PUT PATIENT AT RISK, WHEN TO NOTIFY NURSE/PHYSICIAN OF COMPLICATIONS/DECLINE, AND WHEN TO CALL 911.] Future Scheduled Test SKIN INTEG RITY RN TO ASSESS AND TEACH, LAB SYSTEMS ANALYST/FARM DEMONSTRATOR TO OBSERVE AND TEACH INTEGUMENTARY STATUS TO IDENTIFY CHANGES AND INTERVENE TO MINIMIZE COMPLICATIONS. PROVIDE SKILLED TEACHING OF GENERAL WOUND AND SKIN CARE AND PREVENTION RELATED TO POTENTIAL FOR OR ACTUAL ALTERED SKIN INTEGRITY [code = SKIN INTEGRITY RN TO ASSESS AND TEACH, LAB SYSTEMS ANALYST/FARM DEMONSTRATOR TO OBSERVE AND TEACH INTEGUMENTARY STATUS TO IDENTIFY CHANGES AND INTERVENE TO MINIMIZE COMPLICATIONS. PROVIDE SKILLED TEACHING OF GENERAL WOUND AND SKIN CARE AND PREVENTION RELATED TO POTENTIAL FOR OR ACTUAL ALTERED SKIN INTEGRITY ] Future Scheduled Test CARDIOVASC ULAR SYSTEM; RN TO ASSESS/TEACH, LAB SYSTEMS ANALYST/FARM DEMONSTRATOR TO OBSERVE/TEACH RELATED TO ALTERED CARDIOVASCULAR STATUS TO MINIMIZE COMPLICATIONS AND REDUCE HOSPITALIZATION. [code = CARDIOVASCULAR SYSTEM; RN TO ASSESS/TEACH, LAB SYSTEMS ANALYST/FARM DEMONSTRATOR TO OBSERVE/TEACH RELATED TO ALTERED CARDIOVASCULAR STATUS TO MINIMIZE COMPLICATIONS AND REDUCE HOSPITALIZATION.] Future Scheduled Test HYPERTENSI ON MANAGEMENT; RN TO ASSESS AND TEACH, LAB SYSTEMS ANALYST/FARM DEMONSTRATOR TO OBSERVE AND TEACH WARNING SIGNS AND SYMPTOMS TO AVOID HOSPITALIZATION. [code = HYPERTENSION MANAGEMENT; RN TO ASSESS AND TEACH, LAB SYSTEMS ANALYST/FARM DEMONSTRATOR TO OBSERVE AND TEACH WARNING SIGNS AND SYMPTOMS TO AVOID HOSPITALIZATION.] Future Scheduled Test PAIN MANAG EMENT; RN TO ASSESS AND TEACH, FARM DEMONSTRATOR/LAB SYSTEMS ANALYST TO OBSERVE AND TEACH AND PROVIDE EDUCATION ON PAIN MANAGEMENT TECHNIQUES. [code = PAIN MANAGEMENT; RN TO ASSESS AND TEACH, FARM DEMONSTRATOR/LAB SYSTEMS ANALYST TO OBSERVE AND TEACH AND PROVIDE EDUCATION ON PAIN MANAGEMENT TECHNIQUES.] Future Scheduled Test FALL REDUC TION MANAGEMENT; RN TO ASSESS AND OBSERVE, LAB SYSTEMS ANALYST/FARM DEMONSTRATOR TO OBSERVE FALL RISK FACTORS AND EDUCATE PATIENT/CAREGIVER ON STRATEGIES TO MINIMIZE THE RISK OF FALLING. [code = FALL REDUCTION MANAGEMENT; RN TO ASSESS AND OBSERVE, LAB SYSTEMS ANALYST/FARM DEMONSTRATOR TO OBSERVE FALL RISK FACTORS AND EDUCATE PATIENT/CAREGIVER ON STRATEGIES TO MINIMIZE THE RISK OF FALLING.] Future Scheduled Test PRN VISITS ; NUMBER OF RN/LAB SYSTEMS ANALYST/FARM DEMONSTRATOR VISITS: 3 FOR CP ASSESSMENT [code = PRN VISITS; NUMBER OF RN/LAB SYSTEMS ANALYST/FARM DEMONSTRATOR VISITS: 3 FOR CP ASSESSMENT] Goal 2024-11-08 [...] End Date/Time Encounter Type Admission Type Attending [facility] Care Department Encounter ID Discharge Date Discharge Status Discharge Condition Discharge Reason Percent Goals Met 2024-11-09 00:00:00 2025-01-07 00:00:00 Outpatient [facility] FABIANA BARON [facility] [id number] 50.00
[2024-12-13 08:15] VITALS: BP 124/62; PULSE 67; BMI 18.8
--- NOTE | 2024-12-13 08:15 | MHC.OFFVIS ---
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 Sciences Instructor: Biological Sciences Instructor Present Allergies Penicillins Adverse Reaction (Intermediate, Verified 12/13/24 08:17) rash Medication List - Last Reconciled 12/13/24 by Anju Colby NP-C aspirin (Adult Aspirin Regimen) 81 mg PO DAILY@0600 azithromycin For 250 mg dose pack: take 500 mg today (day 1), then 250 mg for 4 days (days 2-5) PO bumetanide 1 mg PO DAILY cefpodoxime 200 mg PO BID 7 days clonidine HCl 0.1 mg PO BID 90 days clopidogrel (Plavix) 75 mg PO DAILY cyanocobalamin (vitamin B-12) 500 mcg PO DAILY@1800 hydralazine 100 mg See Protocol PO BID 90 days metoprolol succinate ER 100 mg PO DAILY mirtazapine 7.5 mg PO BEDTIME [id number]-[id number] 3.5-10,000-1 mg/mL-unit/mL-% 3 drps otic (ears) Q8H 5 days nifedipine ER 120 mg (2 x 60 mg) PO DAILY 30 days spironolactone 75 mg (1.5 x 50 mg) PO DAILY 90 days terazosin 5 mg PO BEDTIME 90 days HPI HPI Pre-Op Cataract Surgery 12/29 Left eye(NS): Details: Zi is a 69-year-old male presenting for cardiac surgical clearance for cataract surgery. He has a history of CKD, renal artery stents and hypertension, with management on multiple medications. Left ventricular hypertrophy has developed due to sustained elevated blood pressure. He was was admitted to [facility] in July with uncontrolled hypertension, shortness of breath and elevated BNP and hydralazine was added. The patient experienced pneumonia last week, now resolved. He denies chest pain or palpitations. Activity level has reduced, though not due to cardiac symptoms. ECGs show frequent PVCs which are not new. Past cholesterol medication caused adverse effects; he is not currently on such therapy. He follows closely with nephrology. FORMERLY [facility] Medical History Renal insufficiency History of stent insertion of renal artery CKD (chronic kidney disease) Subarachnoid hemorrhage Tubular adenoma COVID-19 vaccination refused History of testicular cancer Peripheral arterial disease Hypercholesterolemia Coronary artery disease Tobacco abuse COPD (chronic obstructive pulmonary disease) Hypertension Surgical History History of surgery Hx of colonoscopy Hx of prostate biopsy History of tonsillectomy History of testicular surgery Family History Father No problems noted. Mother No problems noted. Maternal Grandmother Myocardial infarction Brother In good health Sister In good health Son In good health Son In good health Daughter In good health Sister Diabetes Social History Household Members: Spouse, Significant Other and Family Household Members Other:: 6 Housing: House Are you a primary post acute care nurse to a significant other at home: No Do you presently have visiting nurse or other home services: No Alcohol intake: former Patient Tobacco Use Status: Former Tobacco user Tobacco use type: Cigarette Cigarette Packs Per Day: 0.5 Cigarettes Per Day: 2 Years Smoked: 53 years- 10/PER DAY stopped smoking 07/2024 e-Cigarette/Vaping Use: Never Used Second Hand Smoke Exposure: Yes service: No Current occupational status: employed Current occupational exposures/hazards: No Cognitive needs: No Hearing needs: No Vision needs: Yes Review of Systems Const Details: thin stature All systems reviewed & are unremarkable except as noted in HPI and below Reports fatigue and Reports weight loss ENT Denies dizziness Card Denies chest pain, Denies chest pain at rest, Denies chest pain with activity, Denies rapid heart rate, Denies pedal edema, Denies edema, Denies leg edema, Denies lightheadedness, Denies palpitations, Denies dyspnea, Reports dyspnea on exertion and Denies orthopnea Resp Denies cough, Denies dyspnea and Reports dyspnea on exertion GI Denies hematochezia and Denies change in stool character Musc Denies abnormal gait, Denies limited range of motion, Denies muscle cramps, Reports muscle weakness, Denies numbness, Denies radiating pain into limb, Denies stiffness and Denies tingling Neuro Denies abnormal gait, Denies dizziness, Denies numbness and Denies tingling Endo Reports fatigue and Denies palpitations Physical Exam Const General: cooperative, comfortable and no acute distress Nutritional Appearance: thin and underweight Orientation/consciousness: patient oriented x3 Neck Neck: Yes normal visual inspection and Yes no JVD Resp Effort & Inspection: normal respiratory effort Auscultation: clear to auscultation bilaterally, no rales, no rhonchi and no wheezes Cardio Rate: regular rate Rhythm: regular rhythm Heart sounds: S1 normal heart sound present, S2 normal heart sound present, no gallops, no murmurs and no rubs Neuro General: patient oriented x3 Extrem General: Yes normal to inspection, No no pedal edema and No calf tenderness Psych Appearance: grossly normal Mental Status: mental status grossly normal Speech and movement: Normal speech and movement present Office Procedures EKG Details: Sinus rhythm with first-degree AV block, frequent PVCs, rate 67, QTC 467ms [id number], Complete Results Reviewed Results Reviewed: Echocardiogram 08/20/24 Conclusions: - 1. Normal LV ejection fraction 55-60% with mild LVH with impaired relaxation filling pattern 2. Moderately dilated right ventricle with low-normal RV systolic function 3. Moderate biatrial enlargement 4. Early mild aortic stenosis 5. Normal RV systolic pressure with mildly elevated right atrial pressure 6. No significant pericardial effusion Labs 11/19/2024 show hemoglobin 11.4, hematocrit 35, LDL 114 Labs 11/30/2024 shows potassium 4.2, creatinine 3.84, BNP 621 CT scan of chest 08/20/2024 does show coronary calcifications renal ultrasound 09/05/2024 shows no velocities to suggest hemodynamically significant stenosis, small bilateral pleural effusions, benign renal cysts EKG 11/30/2024 shows sinus rhythm with first-degree AV block, frequent PVCs, nonspecific ST abnormality, rate 66 Assessment & Plan Assessment & Plan (1) Hypertension: Code(s): I10 - Essential (primary) hypertension Category: Medical Qualifiers: Hypertension type: essential hypertension Qualified Code(s): I10 - Essential (primary) hypertension Plan: History of chronic hypertension, difficult to control with renal artery stenosis status post stents, following with Nephrology and on multiple medications. Dixon blood pressure goal less than 130/80. Blood pressure recorded to be normal range today. No medication changes made. Continuing hydralazine, Bumex, clonidine, metoprolol, nifedipine, Aldactone, terazosin. Continue to follow with Nephrology. (2) Elevated brain natriuretic peptide (BNP) level: Code(s): R79.89 - Other specified abnormal findings of blood chemistry Category: Medical Plan: Recent elevated BNP with bilateral pleural effusions. His echocardiogram shows normal EF, mild LVH and impaired relaxation with moderately dilated RV. He is treated with blood pressure control and on Bumex 1 mg daily. On exam today he does not appear fluid overloaded. Signs and symptoms of heart failure reviewed with him. (3) Coronary artery disease: Comment: saw [facility] pre-femoral/femoral bypass surgery 2022-sees PCP Dr. Chery & Dr. Veras-vascular Code(s): I25.10 - Atherosclerotic heart disease of [place] coronary artery without angina pectoris Category: Medical Qualifiers: Coronary Disease-Associated Artery/Lesion type: [place] artery [place] vs. transplanted heart: [place] heart Associated angina: without angina Qualified Code(s): I25.10 - Atherosclerotic heart disease of [place] coronary artery without angina pectoris Plan: Recent CT scan of the chest does show coronary calcifications. He has known peripheral vascular disease as well. No anginal symptoms at this time. He is on dual antiplatelet therapy for his PAD. He is not on statin at this time and tells me he had elevated blood pressure in the past with statin therapy. Recommend that he restart statin when medically appropriate with ideal LDL goal <therapy. Continue metoprolol. Signs and symptoms of angina reviewed. (4) CKD (chronic kidney disease) stage 4, GFR 15-29 ml/min: Code(s): N18.4 - Chronic kidney disease, stage 4 (severe) Category: Medical Plan: Follows with Nephrology (5) History of stent insertion of renal artery: Code(s): Z98.890 - Other specified postprocedural states Category: Medical Plan: History of renal artery stents, Recent renal artery ultrasound showing no hemodynamically significant stenosis. Continue dual antiplatelet therapy. (6) Peripheral arterial disease: Comment: Right leg severe February 2019 status post femoral bypass Code(s): I73.9 - Peripheral vascular disease, unspecified Category: Medical Plan: No reports of claudication but does admit to being mostly sedentary. (7) Hypercholesterolemia: Code(s): E78.00 - Pure hypercholesterolemia, unspecified Category: Medical Plan: Dixon LDL goal less than 70 in patient with CAD, peripheral vascular disease. Recommend statin therapy with ideal LDL goal less than 70 (8) PVC (premature ventricular contraction): Code(s): I49.3 - Ventricular premature depolarization Category: Medical Plan: Recent EKGs and EKG today each show frequent PVCs. Echocardiogram had shown normal EF. Will check a Holter monitor to assess frequency of PVC. (9) Preop cardiovascular exam: Code(s): Z01.810 - Encounter for preprocedural cardiovascular examination Category: Medical Plan: Preop for cataract surgery. He may proceed with low cardiac risk. Continue current medications. Call/consult Cardiology if needed. Plan Time spent on chart review, documentation, interview, assessment I discussed with the patient the details regarding his PVCs and the need for further assessment with a Holter monitor. We reviewed the rationale for continued antiplatelet therapy given the open renal artery stents and the history of optimal blood pressure control with current medication. Surgical clearance for cataract surgery was addressed, emphasizing the absence of significant cardiac concerns. Options for future cholesterol management were noted, contingent upon stable blood pressure. The patient consented to follow-up cardiovascular evaluations and was informed about the potential need for medication adjustments based on Holter findings. I instructed the patient to keep a record of any new or worrisome symptoms and maintain adherence to his medication regimen as prescribed by Dr. Richter. Patient Instructions: - Continue taking blood pressure medications as prescribed. - Monitor blood pressure weekly with your visiting nurse. - Adhere to Plavix to keep renal artery stents open. - Await further instructions concerning the Holter monitor. - Inform us if you experience any new cardiac symptoms like chest pain or palpitations. - Prepare for cataract surgery clearance and coordinate details with home lighting adviser. - Follow up in three months or earlier if advised. - Keep notes of any questions or concerns for your follow-up appointments. Patient was informed and verbally consented to the use of an ambient scribe for clinic note documentation during this visit. Coding Level of Care Code Est Pt Level 4 (98148) Complex EM visit Add On G2211 Diagnoses Essential hypertension I10 Hypertension type: essential hypertension Elevated brain natriuretic peptide (BNP) level R79.89 Coronary artery disease involving [place] coronary artery of [place] heart without angina pectoris I25.10 Coronary Disease-Associated Artery/Lesion type: [place] artery [place] vs. transplanted heart: [place] heart Associated angina: without angina CKD (chronic kidney disease) stage 4, GFR 15-29 ml/min N18.4 History of stent insertion of renal artery Z98.890 Peripheral arterial disease I73.9 Hypercholesterolemia E78.00 PVC (premature ventricular contraction) I49.3 Preop cardiovascular exam Z01.810 CPT Codes EKG - CPT: [id number], Complete ([id number])
== END 2024-12-13 08:52 | disposition home or self-care (01) ==
LOC: HO.HCS 08:10
PROVIDERS: PCP Internal Medicine; Visit Provider Nurse Practitioner Family
DX: I12.9 Hypertensive chronic kidney disease with stage 1 through stage 4 chronic kidney disease, or unspecified chronic kidney disease (principal); R79.89 Other specified abnormal findings of blood chemistry; I25.10 Atherosclerotic heart disease of native coronary artery without angina pectoris; N18.4 Chronic kidney disease, stage 4 (severe); Z98.890 Other specified postprocedural states; I73.9 Peripheral vascular disease, unspecified; E78.00 Pure hypercholesterolemia, unspecified; I49.3 Ventricular premature depolarization; Z01.810 Encounter for preprocedural cardiovascular examination
CPT/HCPCS: 93010; 99214; G2211

== ENCOUNTER → 2024-12-13 08:10 | Outpatient (BNVA) | payer MEDICARE, SELFPAY | PROVIDERS: PCP Internal Medicine; Visit Provider Nurse Practitioner Family | DX: Z01.810 Encounter for preprocedural cardiovascular examination (principal); I12.9 Hypertensive chronic kidney disease with stage 1 through stage 4 chronic kidney disease, or unspecified chronic kidney disease; N18.4 Chronic kidney disease, stage 4 (severe); R79.89 Other specified abnormal findings of blood chemistry; I73.9 Peripheral vascular disease, unspecified; E78.00 Pure hypercholesterolemia, unspecified; I49.3 Ventricular premature depolarization; I25.10 Atherosclerotic heart disease of native coronary artery without angina pectoris; Z98.890 Other specified postprocedural states | CPT/HCPCS: 93005; 99212 ==

== ENCOUNTER → 2024-12-27 08:12 | Outpatient (REF) | payer MEDICARE, SELFPAY ==
--- NOTE | ~2024-12-27 | XR_ITS ---
EXAMINATION: XR CHEST CLINICAL INFORMATION: J18.9 - Pneumonia, unspecified organism COMPARISON: 11/30/2024, 09/13/2024. TECHNIQUE: 2 views of the chest were obtained. FINDINGS: The cardiac, hilar, and mediastinal contours are normal. Lungs are diffusely hyperaerated, with flattened hemidiaphragms, findings consistent with COPD. There is mild biapical pleural thickening/scarring. Lungs otherwise clear. Previously seen right lower lung linear opacities have resolved. There is no pneumothorax or pleural effusion. There is no focal osseous or soft tissue abnormality. XR/XR chest 2V IMPRESSION: 1. COPD. 2. No active superimposed disease. Electronically signed by: Edwardo Queen MD 12/27/2024 08:45 AM EDT
== END ==
LOC: HO.CARD 08:12
PROVIDERS: PCP Internal Medicine; Visit Provider Nurse Practitioner Family
DX: I49.3 Ventricular premature depolarization (principal); J18.9 Pneumonia, unspecified organism
CPT/HCPCS: 71046; 93242

== ENCOUNTER → 2024-12-27 08:16 | Outpatient (BNV) | payer MEDICARE, SELFPAY | PROVIDERS: PCP Internal Medicine; Visit Provider Internal Medicine Cardiovascular Disease | DX: I49.3 Ventricular premature depolarization (principal) | CPT/HCPCS: 93244 ==

== ENCOUNTER → 2024-12-27 08:17 | Outpatient (BNV) | payer MEDICARE, SELFPAY | PROVIDERS: PCP Internal Medicine; Visit Provider Radiology Diagnostic Radiology | DX: J44.9 Chronic obstructive pulmonary disease, unspecified (principal) | CPT/HCPCS: 71046 ==

== ENCOUNTER 2025-01-03 16:05 | Outpatient (AMB) | payer MEDICARE, SELFPAY ==
[2025-01-03 16:13] VITALS: BP 132/80; PULSE 57; TEMP 36.4; O2SAT 95; BMI 18.9
--- NOTE | 2025-01-03 16:13 | MHC.PC.OV ---
Vital Signs 01/03/25 16:13 Height 6 ft Weight 139 lb 2 oz BMI 18.9 BP 132/80 Blood Pressure Location Lt brachial Position Sitting Pulse 57 Pulse Source Pulse Oximeter Temp 97.5 F Temp Source Temporal Artery Scan Pulse Oximetry (%) 95 Oxygen Delivery Method Room Air Intake Visit Reasons: Stomach Pain Allergies Penicillins Adverse Reaction (Intermediate, Verified 01/03/25 16:17) rash Tobacco use date assessed: 01/03/25 Fall risk assessment: No Falls in past year Last assessed Fall Risk: 01/03/25 Dental Screening Dental Screen Date: 01/03/25 Did you have a dental visit in the last 12 months?: No Did you have a dental problem in the last 6 months where you did not have access to dental care?: No Was dental information given to patient?: Patient declined [facility] Medical History Renal insufficiency History of stent insertion of renal artery CKD (chronic kidney disease) Subarachnoid hemorrhage Tubular adenoma COVID-19 vaccination refused History of testicular cancer Peripheral arterial disease Hypercholesterolemia Coronary artery disease Tobacco abuse COPD (chronic obstructive pulmonary disease) Hypertension Surgical History History of surgery Hx of colonoscopy Hx of prostate biopsy History of tonsillectomy History of testicular surgery Family History Father No problems noted. Mother No problems noted. Maternal Grandmother Myocardial infarction Brother In good health Sister In good health Son In good health Son In good health Daughter In good health Sister Diabetes Social History Household Members: Spouse, Significant Other and Family Household Members Other:: 6 Housing: House Are you a primary body care manager to a significant other at home: No Do you presently have visiting nurse or other home services: No Alcohol intake: former Patient Tobacco Use Status: Former Tobacco user Tobacco use type: Cigarette Cigarette Packs Per Day: 0.5 Cigarettes Per Day: 2 Years Smoked: 53 years- 10/PER DAY stopped smoking 07/2024 e-Cigarette/Vaping Use: Never Used Second Hand Smoke Exposure: Yes service: No Current occupational status: employed Current occupational exposures/hazards: No Cognitive needs: No Hearing needs: No Vision needs: Yes Questionnaire PHQ-9 Over the last 2 weeks, how often have you been bothered by any of the following problems? 1. Little interest or pleasure in doing things: not at all 2. Feeling down, depressed, or hopeless: not at all 3. Trouble falling or staying asleep, or sleeping too much: several days 4. Feeling tired or having little energy: several days 5. Poor appetite or overeating: several days 6. Feeling bad about yourself - or that you are a failure or have let yourself or your family down: more than half the days 7. Trouble concentrating on things, such as reading the newspaper or watching television: more than half the days 8. Moving or speaking so slowly that other people could have noticed. Or the opposite - being so fidgety or restless that you have been moving around a lot more than usual: not at all 9. Thoughts that you would be better off or of hurting yourself in some way: not at all Total score: 7 Source: Developed by Drs. Tad Angel, Jennie Nicole, Tello Mendoza and colleagues, with an educational noemi from [employer]. Thrive Questionnaire Date Thrive assessed: 01/03/25 I am a: Patient What is your living situation today?: I have a steady place to live Within the past 12 months, did the food you bought not last and you didn't have the money to get more?: Never true Within the past 12 months, did you worry whether your food would run out before you got money to buy more?: Never true Do you have trouble getting transportation to medical appointments?: No Do you have trouble paying your heating and electricity bill?: I choose not to answer this question Do you have trouble taking care of your child, family member or friend?: No Do you have trouble with day-to-day activities such as bathing, preparing meals, shopping, managing finances, etc.?: No Are you currently unemployed and looking for a job?: No Are you interested in more education?: No Please select the resources that you would like help with: None Currently or been in a relationship where the following occur: I choose not to answer THRIVE Score: 0 AUDIT C Alcohol Use Questionnaire (AUDIT-C) 1. How often do you have a drink containing alcohol?: Never 3. How often do you have six or more drinks on one occasion?: Never Total Score: 0 BIANCA-7 AMB Questionnaire BIANCA-7 Date BIANCA - 7 assessed: 01/03/25 Feeling nervous, anxious, or on edge: 0 = Not at all Not being able to stop or control worryin = Not at all Worrying too much about different things: 0 = Not at all Trouble relaxin = Not at all Being so restless that it is hard to sit still: 0 = Not at all Becoming easily annoyed or irritable: 0 = Not at all Feeling afraid as if something awful might happen: 0 = Not at all Total BIANCA-7 score (0-4 normal; 5-9 mild; 10-14 moderate; 15-21 severe): 0 Source: Developed by Drs. Tad Angel, Jennie Nicole, Tello Mendoza and colleagues, with an educational noemi from [employer]. Physical exam (Primary Care) Vital Signs: Last Vital Signs Temp 97.5 F 01/03/25 16:13 Pulse 57 01/03/25 16:13 BP 132/80 01/03/25 16:13 Pulse Ox 95 01/03/25 16:13 Oxygen Delivery Method Room Air 01/03/25 16:13 BMI result Body Mass Index 18.9 Tobacco/Smoking Status: Tobacco use Status Tobacco use date assessed 01/03/25 01/03/25 16:19 Patient Tobacco Use Status Former Tobacco user 01/03/25 16:19 Tobacco use type Cigarette 01/03/25 16:19 e-Cigarette/Vaping Use Never Used 01/03/25 16:19 PHQ-9: PHQ-9 Score PHQ-9: Total score 7 01/03/25 16:45 Thrive Assessment: Date of Thrive Assessment Date Thrive assessed 01/03/25 01/03/25 16:19 Currently or been in a relationship where the following occur: I choose not to answer Const General: alert; No acute distress Eyes Conjunctivae: conjunctivae normal Resp Auscultation: clear to auscultation bilaterally Cardio Rate: regular rate Rhythm: regular rhythm GI Other: Tender on her right upper quadrant with some guarding no rebound. Extrem General: Yes normal to inspection and No edema Coding Level of Care Code Est Pt Level 4 (13238) Complex EM visit Add On G2211 Diagnoses Peripheral arterial disease I73.9 CKD (chronic kidney disease) stage 4, GFR 15-29 ml/min N18.4 Prostate cancer C61 Coronary artery disease involving [place] coronary artery of [place] heart without angina pectoris I25.10 Associated angina: without angina Coronary Disease-Associated Artery/Lesion type: [place] artery [place] vs. transplanted heart: [place] heart Hypercholesterolemia E78.00 Tobacco abuse Z72.0 Panlobular emphysema J43.1 COPD type: emphysema Emphysema type: panlobular Essential hypertension I10 Hypertension type: essential hypertension RUQ abdominal pain R10.11 Assessment & Plan Assessment & Plan (1) Peripheral arterial disease: Comment: Right leg severe February 2019 status post femoral bypass Code(s): I73.9 - Peripheral vascular disease, unspecified Category: Medical Plan: Patient on aspirin and clopidogrel continue to follow-up with vascular (2) CKD (chronic kidney disease) stage 4, GFR 15-29 ml/min: Code(s): N18.4 - Chronic kidney disease, stage 4 (severe) Category: Medical Plan: Patient follows up with Nephrology (3) Prostate cancer: Comment: 12/2023 biopsy Code(s): C61 - Malignant neoplasm of prostate Category: Medical Plan: Continue to follow-up urology (4) Coronary artery disease: Comment: saw [facility] pre-femoral/femoral bypass surgery 2022-sees PCP Dr. Chery & Dr. Veras-vascular Code(s): I25.10 - Atherosclerotic heart disease of [place] coronary artery without angina pectoris Category: Medical Qualifiers: Associated angina: without angina Coronary Disease-Associated Artery/Lesion type: [place] artery [place] vs. transplanted heart: [place] heart Qualified Code(s): I25.10 - Atherosclerotic heart disease of [place] coronary artery without angina pectoris Plan: Control the cholesterol, weight, blood pressure, on aspirin (5) Hypercholesterolemia: Code(s): E78.00 - Pure hypercholesterolemia, unspecified Category: Medical Plan: Avoid fried foods, chicken skin, eggs, butter margarine, pastries and meat. Be it pork or beef they have a lot of cholesterol patient presently not on cholesterol medication but is recommended strongly (6) Tobacco abuse: Code(s): Z72.0 - Tobacco use Category: Medical Plan: Patient is strongly advised to stop smoking (7) COPD (chronic obstructive pulmonary disease): Code(s): J44.9 - Chronic obstructive pulmonary disease, unspecified Category: Medical Qualifiers: COPD type: emphysema Emphysema type: panlobular Qualified Code(s): J43.1 - Panlobular emphysema Plan: Advised strongly to stop smoking (8) Hypertension: Code(s): I10 - Essential (primary) hypertension Category: Medical Qualifiers: Hypertension type: essential hypertension Qualified Code(s): I10 - Essential (primary) hypertension Plan: Continue with blood pressure medication. Decrease salt intake and exercise on spironolactone 75 mg once a day nifedipine 120 mg once a day metoprolol 100 mg once a day hydralazine 100 mg twice a day clonidine 0.1 mg twice a day and on Bumex (9) RUQ abdominal pain: Code(s): R10.11 - Right upper quadrant pain Category: Medical Plan History of Present Illness The patient is a 69-year-old male presenting with abdominal pain, originating in August 2023 following blood work. The pain is primarily mid-abdominal just below the ribcage, and it has progressed over time without apparent relief factors. It intensified after discharge from the hospital, around the time of stomach discomfort post-blood testing. Additional symptoms included hiccoughs and dietary inconsistencies, particularly with high-fat foods. The patient's medical background includes chronic kidney disease, congestive heart failure, hypertension, and a history of prostate cancer. A prior CT scan noted a mildly distended gallbladder, prompting consideration for an abdominal ultrasound to assess potential gallbladder-related issues. The patient remains on dual antiplatelet therapy and various antihypertensive medications, alongside a recommendation to augment dietary modifications to mitigate negative effects on current conditions. Health Maintenance - Colonoscopy completed with a tubular adenoma identified (August 2023). - Cardiovascular evaluation conducted and cleared for surgery on November 30, 2024. - Chronic kidney disease monitoring with previous blood work indicating stable anemia and normal platelet count. - Blood pressure management with antihypertensives. - Statin therapy recommended to maintain an LDL level below 70. - Advised to cease smoking to reduce cardiovascular risk. - Regular follow-ups with nephrology, urology, and cardiology are maintained. Social History - Smoking: Currently advised to quit smoking to improve cardiovascular health. - Activity: Reduced physical activity, mostly sedentary with limited mobility. - Diet: Current diet includes high-fat foods like cinnamon buns and inconsistent intake of nutritious meals. - Functional status: Avoids using a seatbelt due to abdominal discomfort, indicating functional impairment. Review of Systems - Respiratory: Denies shortness of breath. - Cardiovascular: Denies chest pain, history of coronary artery disease. - Gastrointestinal: Reports abdominal pain, denies diarrhea or blood in stools. - Genitourinary: Reports increased bladder fullness, denies difficulty voiding. - Musculoskeletal: Denies joint pain. - Neurological: Denies dizziness or lightheadedness. - Dermatological: Denies rash, reports frequent scratching. - General: Reports chronic fatigue. Physical Exam - Abdomen- Tenderness noted beneath the ribcage with no rash or palpable masses. - Overall- Patient appears alert with no acute distress indicated. Results - Labs: BUN 63, Creatinine 3.84, LDL 114, A1c normal. - Imaging: Previous CT scan in July showed mildly distended gallbladder. - Echocardiogram: Normal ejection fraction, moderate RV dilation noted. Plan The plan includes scheduling an urgent abdominal ultrasound to investigate the gallbladder as a possible pain source. Dietary changes towards low-fat intake were advised to minimize gallbladder irritation. Existing management for hypertension, heart failure, and CKD will persist per current regimen with regular follow-up. Any hyperlipidemia management adjustments are deferred until post-procedural clearance. Smoking cessation counseling remains a priority. Further cardiac and renal evaluations will continue to track potential complications. Surgical interventions for cataract or gallbladder are deferred pending evaluation outcomes. Patient was informed and verbally consented to the use of an ambient scribe for clinic note documentation during this visit. Discussion Notes I discussed with the patient the likelihood of the gallbladder contributing to abdominal pain, necessitating an urgent ultrasound for further assessment. We reviewed potential dietary modifications, emphasizing reduced fat intake to ease gallbladder stimulation and manage abdominal discomfort. I reiterated the patient's existing cardiovascular and renal care plans, highlighting statin therapy follow-up post-imaging approval. The risks and benefits of proposed evaluations and lifestyle adjustments were considered comprehensively alongside existing conditions. Follow-up for ultrasound results was arranged, with a clear understanding of potential outcomes, especially concerning gallbladder involvement and surgical necessity. Patient Instructions - Undergo scheduled abdominal ultrasound swiftly. - Follow a low-fat diet to relieve a possible gallbladder condition. - Maintain current medication regimen and consult specialists regularly. - Avoid smoking to protect cardiac health. - Monitor symptoms and increase hydration to manage kidney health. - Report changes in symptoms such as pain elevation or nausea. Orders: Orders Complete Blood Count Auto Diff Today R10.11 - Right upper quadrant pain Comprehensive Met. Panel Today R10.11 - Right upper quadrant pain US abdomen complete Today R10.11 - Right upper quadrant pain, R79.89 - Other specified abnormal findings of blood chemistry UA CC w/rflx Micro + Cult Today R10.11 - Right upper quadrant pain, R30.0 - Dysuria
== END 2025-01-03 17:24 | disposition home or self-care (01) ==
LOC: HO.HMCH 16:05
PROVIDERS: PCP Internal Medicine; Visit Provider Internal Medicine
DX: I12.9 Hypertensive chronic kidney disease with stage 1 through stage 4 chronic kidney disease, or unspecified chronic kidney disease (principal); N18.4 Chronic kidney disease, stage 4 (severe); C61 Malignant neoplasm of prostate; J43.1 Panlobular emphysema; I73.9 Peripheral vascular disease, unspecified; I25.10 Atherosclerotic heart disease of native coronary artery without angina pectoris; E78.00 Pure hypercholesterolemia, unspecified; Z72.0 Tobacco use; R10.11 Right upper quadrant pain

== ENCOUNTER → 2025-01-03 16:05 | Outpatient (BNVA) | payer MEDICARE, SELFPAY | PROVIDERS: PCP Internal Medicine; Visit Provider Internal Medicine | DX: I73.9 Peripheral vascular disease, unspecified (principal); I12.9 Hypertensive chronic kidney disease with stage 1 through stage 4 chronic kidney disease, or unspecified chronic kidney disease; N18.4 Chronic kidney disease, stage 4 (severe); I25.10 Atherosclerotic heart disease of native coronary artery without angina pectoris; E78.00 Pure hypercholesterolemia, unspecified; J43.1 Panlobular emphysema; R10.11 Right upper quadrant pain; Z72.0 Tobacco use | CPT/HCPCS: 99212 ==

== ENCOUNTER 2025-01-16 06:07 | Outpatient (REF) | payer MEDICARE, SELFPAY ==
[2025-01-16 07:33] LABS: Basophils Percent Auto 0.6 % (0-2); Eosinophils Absolute Auto 0.8 X10*3/uL (0.0-0.4); Eosinophils Percent Auto 12.5 % (0-4); Hemoglobin 12.1 g/dl (14.0-18.0); Imm Gran Abs Auto 0.02 X10*3/uL (0.00-0.03); Imm Gran Pct Auto 0.3 % (0.0-0.4); Lymphocytes Absolute Auto 1.5 X10*3/uL (1.2-4.9); Lymphocytes Percent Auto 21.8 % (20-40); MANUAL DIFF FLAG NO; Mean Corpuscular HGB Conc 33.6 g/dl (31.0-36.0); Mean Corpuscular Hemoglobin 27.8 pg (27.0-33.0); Mean Corpuscular Volume 82.6 fL (80.0-98.0); Mean Platelet Volume 10.2 fL (9.4-12.4); Monocytes Percent Auto 15.2 % (2-11); Neutrophils Absolute Auto 3.3 x10*3/uL (2.0-8.3); Neutrophils Percent Auto 49.6 % (45-73); Platelet Count 280 X10*3/uL (160-400); Red Blood Count 4.36 X10*6/uL (4.60-5.80); Red Cell Distribution Width 16.3 % (11.0-16.0); White Blood Count 6.7 X10*3/uL (4.8-10.8)
[2025-01-16 08:43] LABS: Alanine Aminotransferase 10 U/L (0-40); Albumin Level 4.4 g/dL (3.5-5.0); Alkaline Phosphatase 76 U/L (39-117); Anion Gap 17 (12-20); Aspartate Amino Transferase 23 U/L (5-37); Bilirubin Total 0.4 mg/dL (0.0-1.0); Blood Urea Nitrogen 62 mg/dL (9-16); Calcium 9.5 mg/dL (8.4-10.2); Carbon Dioxide 20 mmol/L (22-29); Chloride 104 mmol/L (96-108); Estimated Glomerular Filt Rate 15; Glucose Random 106 mg/dL (60-115); Potassium 3.8 mmol/L (3.3-5.1); Sodium 137 mmol/L (135-145); Total Protein 7.5 g/dL (6.5-8.0)
[2025-01-16 17:13] LABS: Appearance Urine Clear; Color Urine Yellow; Glucose Urine UA Negative (Negative); Leukocyte Esterase Urine Negative (Negative); Nitrite Urine Negative (Negative); PH 5.5 (5.0-9.0); UMIC TRIGGER UACC YES; Urine Blood Negative (Negative); Urine Ketones Negative (Negative); Urine Protein 100 (2+) mg/dL (Neg-Trace)
[2025-01-16 18:41] LABS: Bacteria Urine None Seen (None Seen); Hyaline Casts Urine 0-2 /LPF (0-2); RBC Urine 0-2 /HPF (0-2); Squamous Epithelial Cell Urine 0-2 /HPF (0-2); WBC Urine 0-5 /HPF (0-5)
== END 2025-01-16 06:08 | disposition home or self-care (01) ==
LOC: HO.LAB 06:07
PROVIDERS: Absent Provider Internal Medicine Nephrology; PCP Internal Medicine; Visit Provider Internal Medicine
DX: R10.11 Right upper quadrant pain (principal)
CPT/HCPCS: 36415; 80053; 81001; 85025

== ENCOUNTER 2025-01-18 11:24 | Outpatient (AMB) | payer MEDICARE, SELFPAY ==
--- NOTE | 2025-01-18 11:22 | HO.NEPHOV_ITS ---
Vital Signs 01/18/25 11:25 Height 6 ft Weight 133 lb BMI 18.0 BP 138/70 Blood Pressure Location Rt brachial Position Sitting Intake Visit Reasons: 2 MO FU-Conf Intake Note: Patient has a follow-up, needs a refill on spironolactone 75 mg. End Finder Forming Department Required: No Accompanied by: Self / Same As Patient Allergies Penicillins Adverse Reaction (Intermediate, Verified 01/18/25 11:22) rash Do you need a note to return to daycare/school/sports/work: No HPI Comments Details: 68-year-old man with a history of hypertension and significant vascular disease who had a baseline creatinine about 1.0- 1.2 mg/dL in October of 2022. In June of 2023 creatinine went up to 1.6 with it going upto 1.9 in July and 2.63 in November 2023. He also had been on hydrochlorothiazide 50 mg at that time which was reduced to 25 mg due to hypokalemia.He has a history of testicular cancer and underwent radiation several years ago which he attributes to his vascular disease. He has H/O fem- fem bypass surgery by Dr. Veras. Apparently he had a coronary angiogram in [facility] which was reportedly normal.(I have not seen the results). He has a history of smoking for several years. He continues to smoke cigarettes despite peripheral vascular disease and dyslipidemia.He has no new rash. He was seen in ER for accelerated hypertension & at that time his serum creatinine bumped up to 3.19. Previously CT angiogram of the abdomen in 2021 showed bilateral atherosclerosis disease of renal arteries.He underwent angiography and B/L renal artery stenting. He had taken hydralazine but could not tolerate due to side effects. He recently was admitted for acute on chronic diastolic CHF complicated by acute hypoxic respiratory failure. Was treated with IV Bumex which was then complicated by acute kidney injury on CKD 4. Creatinine stabilized & is fairly stable now. For peripheral vascular disease he is continued on dual antiplatelet and statin. He was seen by [facility] as per his request [facility] Medical History Renal insufficiency History of stent insertion of renal artery CKD (chronic kidney disease) Subarachnoid hemorrhage Tubular adenoma COVID-19 vaccination refused History of testicular cancer Peripheral arterial disease Hypercholesterolemia Coronary artery disease Tobacco abuse COPD (chronic obstructive pulmonary disease) Hypertension Surgical History History of surgery Hx of colonoscopy Hx of prostate biopsy History of tonsillectomy History of testicular surgery Family History Father No problems noted. Mother No problems noted. Maternal Grandmother Myocardial infarction Brother In good health Sister In good health Son In good health Son In good health Daughter In good health Sister Diabetes Social History Household Members: Spouse, Significant Other and Family Household Members Other:: 6 Housing: House Are you a primary health care / medical job titles to a significant other at home: No Do you presently have visiting nurse or other home services: No Alcohol intake: former Patient Tobacco Use Status: Former Tobacco user Tobacco use type: Cigarette Cigarette Packs Per Day: 0.5 Cigarettes Per Day: 2 Years Smoked: 53 years- 10/PER DAY stopped smoking 07/2024 e-Cigarette/Vaping Use: Never Used Second Hand Smoke Exposure: Yes service: No Current occupational status: employed Current occupational exposures/hazards: No Cognitive needs: No Hearing needs: No Vision needs: Yes Review of Systems Const All systems reviewed & are unremarkable except as noted in HPI and below Physical Exam Vital Signs: Last Vital Signs BP 138/70 01/18/25 11:25 BMI result Body Mass Index 18.0 Telehealth Telehealth Telehealth Platform: Telephone Location of provider rendering services: practice address Location of patient: address on file Telehealth method: voice only Patient verbally consented to treatment: Yes Patient verbally consented to billing insurance company: Yes Patient informed of any privacy concerns related to visit: No Minutes spent on Phone/Video with Pt.: 10 Results Reviewed Nephrology Results: Hgb, (14.0-18.0) 12.1 g/dl L 01/16/25 WBC, (4.8-10.8) 6.7 X10*3/uL 01/16/25 Plt Count, (160-400) 280 X10*3/uL 01/16/25 Sodium, (135-145) 137 mmol/L 01/16/25 Potassium, (3.3-5.1) 3.8 mmol/L 01/16/25 Chloride, (96-108) 104 mmol/L 01/16/25 Carbon Dioxide, (22-29) 20 mmol/L L 01/16/25 BUN, (9-16) 62 mg/dL H 01/16/25 Creatinine, (0.5-1.4) 4.12 mg/dL H* 01/16/25 Calcium, (8.4-10.2) 9.5 mg/dL 01/16/25 Urine Protein, (Neg-Trace) 100 (2+) mg/dL H 01/16/25 Renal US 09/05/24 Assessment & Plan Assessment & Plan (1) Hypertension: Code(s): I10 - Essential (primary) hypertension Category: Medical Qualifiers: Hypertension type: essential hypertension Qualified Code(s): I10 - Essential (primary) hypertension (2) CKD (chronic kidney disease) stage 4, GFR 15-29 ml/min: Code(s): N18.4 - Chronic kidney disease, stage 4 (severe) Category: Medical Plan 69-year-old man with a history of longstanding hypertension dyslipidemia and peripheral vascular disease in the setting of chronic smoking currently has progressive chronic kidney disease, likely from ischemic nephropathy. He is S/P B/L renal artery stenting. His BP has been labile and medications have been adjusted with improvement. He avoids NSAID's. He could continue rest of current medications for now. I ordered follow up blood work. During his previous visits, I had discussed about declining renal function and need for renal replacement in the future. Follow up given Orders: Orders Phosphorus 2 Months I10 - Essential (primary) hypertension, N18.4 - Chronic kidney disease, stage 4 (severe) Calcium 2 Months I10 - Essential (primary) hypertension, N18.4 - Chronic kidney disease, stage 4 (severe) Parathyroid Hormone Intact 2 Months I10 - Essential (primary) hypertension, N18.4 - Chronic kidney disease, stage 4 (severe) Vitamin D 25-OH Total 2 Months I10 - Essential (primary) hypertension, N18.4 - Chronic kidney disease, stage 4 (severe) Electrolytes 2 Months I10 - Essential (primary) hypertension, N18.4 - Chronic kidney disease, stage 4 (severe) Blood Urea Nitrogen 2 Months I10 - Essential (primary) hypertension, N18.4 - Chronic kidney disease, stage 4 (severe) Creatinine 2 Months I10 - Essential (primary) hypertension, N18.4 - Chronic kidney disease, stage 4 (severe) Coding Level of Care Code Tele Est Pt Level 4 (39062) Diagnoses Essential hypertension I10 Hypertension type: essential hypertension CKD (chronic kidney disease) stage 4, GFR 15-29 ml/min N18.4
[2025-01-18 11:25] VITALS: BP 138/70; BMI 18.0
== END 2025-01-18 12:23 | disposition home or self-care (01) ==
LOC: HO.HKA 11:24
PROVIDERS: PCP Internal Medicine; Visit Provider Internal Medicine Nephrology
DX: I12.9 Hypertensive chronic kidney disease with stage 1 through stage 4 chronic kidney disease, or unspecified chronic kidney disease (principal); N18.4 Chronic kidney disease, stage 4 (severe)
CPT/HCPCS: 99214

== ENCOUNTER → 2025-01-18 11:24 | Outpatient (BNVA) | payer MEDICARE, SELFPAY | PROVIDERS: PCP Internal Medicine; Visit Provider Internal Medicine Nephrology | DX: Z13.89 Encounter for screening for other disorder (principal) ==

== ENCOUNTER 2025-01-20 07:44 | Outpatient (REF) | payer MEDICARE, SELFPAY ==
--- NOTE | ~2025-01-20 | US_ITS ---
EXAMINATION: US ABDOMEN COMPLETE CLINICAL INFORMATION: Other specified abnormal findings on blood chemistry. Anemia. Testicular cancer Atherosclerosis disease, renal artery.. COMPARISON: September 05, 2024. Correlated to CT abdomen and pelvis dated August 20, 2024. TECHNIQUE: Real-time ultrasound of the abdomen using grayscale technique. FINDINGS: PANCREAS: No peripancreatic fluid collections. ABDOMINAL AORTA: The proximal, mid, and distal segments are normal in caliber. INFERIOR VENA CAVA: Visualized portions are normal. LIVER: Liver measures 15 cm. No nodular surface. Normal echotexture. No solid or cystic lesion detected by the technologist. No intrahepatic biliary ductal dilatation. Main portal vein is patent with normal hepatopedal flow direction. GALLBLADDER: Fluid-filled. No pericholecystic fluid collection or gallbladder wall thickening. COMMON BILE DUCT: 4 mm. RIGHT KIDNEY: 9 cm. Renal cortical thinning. Increased echotexture. No hydronephrosis. There is a 1.2 cm exophytic well-defined anechoic lesion in the posterior upper pole without septations or flow on color Doppler interrogation. There is stent in the main renal artery not fully investigated. . LEFT KIDNEY: 9 cm. Normal echotexture. Renal cortical thinning. No hydronephrosis. There are few's scattered anechoic lesions, the largest measures 2.4 cm in the midportion without septations or nodular components. There is a stent in the renal artery not fully integrated. . SPLEEN: 10 cm. No focal lesion.. FREE FLUID: None. US/US abdomen complete IMPRESSION: No cholelithiasis or gross choledocholithiasis. Liver and spleen are normal. Status post bilateral renal artery stenting. No hydronephrosis. Bilateral renal cysts. No ascites. Electronically signed by: Amandeep Roe MD 01/20/2025 08:38 AM EDT
== END 2025-01-20 07:45 | disposition home or self-care (01) ==
LOC: HO.US 07:44
PROVIDERS: PCP Internal Medicine; Visit Provider Internal Medicine
DX: R79.89 Other specified abnormal findings of blood chemistry (principal); R10.11 Right upper quadrant pain
CPT/HCPCS: 76700

== ENCOUNTER → 2025-01-20 07:48 | Outpatient (BNV) | payer MEDICARE, SELFPAY | PROVIDERS: PCP Internal Medicine; Visit Provider Radiology Diagnostic Radiology | DX: N20.0 Calculus of kidney (principal) | CPT/HCPCS: 76700 ==

== ENCOUNTER 2025-02-15 14:04 | Outpatient (AMB) | payer MEDICARE, SELFPAY ==
[2025-02-15 14:06] VITALS: BP 154/86; PULSE 77; RESP 18; TEMP 36.4; O2SAT 98; BMI 19.4
--- NOTE | 2025-02-15 14:06 | MHC.PC.OV ---
Vital Signs 02/15/25 14:06 Height 6 ft Weight 143 lb 1.28 oz BMI 19.4 BP 154/86 H Blood Pressure Location Lt brachial Position Sitting Respiration 18 Pulse 77 Pulse Source Pulse Oximeter Temp 97.5 F Temp Source Temporal Artery Scan Pulse Oximetry (%) 98 Oxygen Delivery Method Room Air Intake Visit Reasons: RUQ pain Accompanied by: Son Allergies Penicillins Adverse Reaction (Intermediate, Verified 02/15/25 14:11) rash Medication List - Last Reconciled 02/15/25 by Michael Chery MD aspirin (Adult Aspirin Regimen) 81 mg PO DAILY@0600 bumetanide 1 mg PO DAILY clonidine HCl 0.1 mg PO BID 90 days clopidogrel (Plavix) 75 mg PO DAILY cyanocobalamin (vitamin B-12) 500 mcg PO DAILY@1800 hydralazine 100 mg See Protocol PO BID 90 days metoprolol succinate ER 150 mg (1.5 x 100 mg) PO DAILY bxuetezj-[id number]-BN 3.5-10,000-1 mg/mL-unit/mL-% 3 drps otic (ears) Q8H 5 days nifedipine ER 120 mg (2 x 60 mg) PO DAILY 30 days spironolactone 75 mg (1.5 x 50 mg) PO DAILY 90 days terazosin 5 mg PO BEDTIME 90 days Tobacco use date assessed: 02/15/25 Fall risk assessment: No Falls in past year Last assessed Fall Risk: 02/15/25 Dental Screening Dental Screen Date: 02/15/25 Did you have a dental visit in the last 12 months?: No Did you have a dental problem in the last 6 months where you did not have access to dental care?: No Was dental information given to patient?: Patient declined [facility] Medical History (Updated 02/15/25 @ 15:03 by Michael Chery MD) CKD stage 3b, GFR 30-44 ml/min Renal insufficiency History of stent insertion of renal artery CKD (chronic kidney disease) Subarachnoid hemorrhage Tubular adenoma COVID-19 vaccination refused History of testicular cancer Peripheral arterial disease Hypercholesterolemia Coronary artery disease Tobacco abuse COPD (chronic obstructive pulmonary disease) Hypertension Surgical History History of surgery Hx of colonoscopy Hx of prostate biopsy History of tonsillectomy History of testicular surgery Family History Father No problems noted. Mother No problems noted. Maternal Grandmother Myocardial infarction Brother In good health Sister In good health Son In good health Son In good health Daughter In good health Sister Diabetes Social History Household Members: Spouse, Significant Other and Family Household Members Other:: 6 Housing: House Are you a primary healthcare or medical to a significant other at home: No Do you presently have visiting nurse or other home services: No Alcohol intake: former Patient Tobacco Use Status: Former Tobacco user Tobacco use type: Cigarette Cigarette Packs Per Day: 0.5 Cigarettes Per Day: 2 Years Smoked: 53 years- 10/PER DAY stopped smoking 07/2024 e-Cigarette/Vaping Use: Never Used Second Hand Smoke Exposure: Yes service: No Current occupational status: employed Current occupational exposures/hazards: No Cognitive needs: No Hearing needs: No Vision needs: Yes Questionnaire PHQ-9 Over the last 2 weeks, how often have you been bothered by any of the following problems? 1. Little interest or pleasure in doing things: not at all 2. Feeling down, depressed, or hopeless: not at all 3. Trouble falling or staying asleep, or sleeping too much: several days 4. Feeling tired or having little energy: several days 5. Poor appetite or overeating: several days 6. Feeling bad about yourself - or that you are a failure or have let yourself or your family down: more than half the days 7. Trouble concentrating on things, such as reading the newspaper or watching television: more than half the days 8. Moving or speaking so slowly that other people could have noticed. Or the opposite - being so fidgety or restless that you have been moving around a lot more than usual: not at all 9. Thoughts that you would be better off or of hurting yourself in some way: not at all Total score: 7 Source: Developed by Drs. Tad Angel, Jennie Nicole, Tello Mendoza and colleagues, with an educational noemi from [employer]. Thrive Questionnaire Date Thrive assessed: 02/15/25 I am a: Patient What is your living situation today?: I have a steady place to live Within the past 12 months, did the food you bought not last and you didn't have the money to get more?: Never true Within the past 12 months, did you worry whether your food would run out before you got money to buy more?: Sometimes True Do you have trouble paying for medicines?: No Do you have trouble getting transportation to medical appointments?: No Do you have trouble paying your heating and electricity bill?: I choose not to answer this question Do you have trouble taking care of your child, family member or friend?: No Do you have trouble with day-to-day activities such as bathing, preparing meals, shopping, managing finances, etc.?: No Are you currently unemployed and looking for a job?: No Are you interested in more education?: No Please select the resources that you would like help with: None Currently or been in a relationship where the following occur: I choose not to answer THRIVE Score: 1 AUDIT C Alcohol Use Questionnaire (AUDIT-C) 1. How often do you have a drink containing alcohol?: Never 3. How often do you have six or more drinks on one occasion?: Never Total Score: 0 BIANCA-7 AMB Questionnaire BIANCA-7 Date BIANCA - 7 assessed: 01/03/25 Feeling nervous, anxious, or on edge: 0 = Not at all Not being able to stop or control worryin = Not at all Worrying too much about different things: 0 = Not at all Trouble relaxin = Not at all Being so restless that it is hard to sit still: 0 = Not at all Becoming easily annoyed or irritable: 0 = Not at all Feeling afraid as if something awful might happen: 0 = Not at all Total BIANCA-7 score (0-4 normal; 5-9 mild; 10-14 moderate; 15-21 severe): 0 Source: Developed by Drs. Tad Angel, Jennie Nicole, Tello Mendoza and colleagues, with an educational noemi from [employer]. Physical exam (Primary Care) Vital Signs: Last Vital Signs Temp 97.5 F 02/15/25 14:06 Pulse 77 02/15/25 14:06 Resp 18 02/15/25 14:06 BP 154/86 H 02/15/25 14:06 Pulse Ox 98 02/15/25 14:06 Oxygen Delivery Method Room Air 02/15/25 14:06 BMI result Body Mass Index 19.4 Tobacco/Smoking Status: Tobacco use Status Tobacco use date assessed 02/15/25 02/15/25 14:15 Patient Tobacco Use Status Former Tobacco user 02/15/25 14:06 Tobacco use type Cigarette 02/15/25 14:06 e-Cigarette/Vaping Use Never Used 02/15/25 14:06 PHQ-9: PHQ-9 Score PHQ-9: Total score 7 02/15/25 14:15 Thrive Assessment: Date of Thrive Assessment Date Thrive assessed 02/15/25 02/15/25 14:15 Currently or been in a relationship where the following occur: I choose not to answer Const General: alert; No acute distress Eyes Conjunctivae: conjunctivae normal Resp Auscultation: clear to auscultation bilaterally Cardio Rate: regular rate Rhythm: regular rhythm GI Inspection: Yes normal to inspection Extrem General: Yes normal to inspection and No edema Coding Level of Care Code Est Pt Level 4 (07862) Complex EM visit Add On G2211 Diagnoses Essential hypertension I10 Hypertension type: essential hypertension Coronary artery disease involving [place] coronary artery of [place] heart without angina pectoris I25.10 Coronary Disease-Associated Artery/Lesion type: [place] artery Circle vs. transplanted heart: [place] heart Associated angina: without angina Peripheral vascular disease I73.9 History of stent insertion of renal artery Z98.890 Hypercholesterolemia E78.00 CKD (chronic kidney disease) stage 4, GFR 15-29 ml/min N18.4 Anemia D64.9 Prostate cancer C61 Panlobular emphysema J43.1 COPD type: emphysema Emphysema type: panlobular Tobacco abuse Z72.0 Assessment & Plan Assessment & Plan (1) Hypertension: Code(s): I10 - Essential (primary) hypertension Category: Medical Qualifiers: Hypertension type: essential hypertension Qualified Code(s): I10 - Essential (primary) hypertension Plan: Continue with blood pressure medication. Decrease salt intake and exercise patient is on hydralazine 100 mg twice a day metoprolol 150 mg once a day nifedipine 120 mg once a day spironolactone 75 mg once a day patient follows up with Nephrology (2) Coronary artery disease: Comment: saw [facility] pre-femoral/femoral bypass surgery 2022-sees PCP Dr. Chery & Dr. Veras-vascular Code(s): I25.10 - Atherosclerotic heart disease of [place] coronary artery without angina pectoris Category: Medical Qualifiers: Coronary Disease-Associated Artery/Lesion type: [place] artery Circle vs. transplanted heart: [place] heart Associated angina: without angina Qualified Code(s): I25.10 - Atherosclerotic heart disease of [place] coronary artery without angina pectoris Plan: Control the cholesterol, weight, blood pressure, patient on clopidogrel and aspirin (3) Peripheral vascular disease: Comment: 03/24/2018 - diagnostic angiogram 11/03/2022 - femoral to femoral bypass Code(s): I73.9 - Peripheral vascular disease, unspecified Category: Medical Plan: Patient on clopidogrel and follows up with vascular surgeon (4) History of stent insertion of renal artery: Code(s): Z98.890 - Other specified postprocedural states Category: Medical Plan: Continue to follow-up with Nephrology (5) Hypercholesterolemia: Code(s): E78.00 - Pure hypercholesterolemia, unspecified Category: Medical Plan: Avoid fried foods, chicken skin, eggs, butter margarine, pastries and meat. Be it pork or beef they have a lot of cholesterol p patient needs to take cholesterol medication LDL goal of less than 70 and triglyceride of less than 150. (6) CKD (chronic kidney disease) stage 4, GFR 15-29 ml/min: Code(s): N18.4 - Chronic kidney disease, stage 4 (severe) Category: Medical Plan: Patient follows up with Nephrology and discussed about the progression and the need for renal replacement soon (7) Anemia: Code(s): D64.9 - Anemia, unspecified Category: Medical Plan: With the kidney problem continue to monitor blood count (8) Prostate cancer: Comment: 12/2023 biopsy Code(s): C61 - Malignant neoplasm of prostate Category: Medical Plan: Continue to follow-up with urology (9) COPD (chronic obstructive pulmonary disease): Code(s): J44.9 - Chronic obstructive pulmonary disease, unspecified Category: Medical Qualifiers: COPD type: emphysema Emphysema type: panlobular Qualified Code(s): J43.1 - Panlobular emphysema Plan: Patient is strongly advised to stop smoking! (10) Tobacco abuse: Comment: July 2024 Code(s): Z72.0 - Tobacco use Category: Medical Plan: Patient states has stopped start of the year 2024 Plan History of Present Illness The patient is a 69-year-old male presenting for an acute problem. The patient has a history of Chronic Obstructive Pulmonary Disease (COPD) and has experienced exacerbations in the past, often triggered by environmental factors such as open windows during cold weather. He reports frequent pneumonia, which he attributes to environmental exposure, although bacterial and viral infections are also considered potential causes. The patient has a history of hypertension, which has been challenging to manage due to underlying chronic kidney disease and ischemic nephropathy. Blood pressure management is complicated by the need to balance kidney function and fluid status, with current medications including hydralazine, metoprolol, nifedipine, and spironolactone. The patient has coronary artery disease and is on antiplatelet therapy with clopidogrel and aspirin. He follows up with a vascular surgeon for peripheral vascular disease management. The patient has a history of prostate cancer and tubular adenoma of the colon, with regular follow-ups for these conditions. Chronic kidney disease stage 4 is present, likely secondary to ischemic nephropathy, with a history of bilateral renal artery stenting. Renal function has been declining, with recent creatinine levels rising to 4.12 mg/dL, and discussions about potential renal replacement therapy have occurred. The patient has hyperlipidemia, with recent LDL cholesterol levels at 114 mg/dL, which is above the target for patients with peripheral arterial disease. He has not been on statins for some time, and there is a plan to restart atorvastatin 80 mg. Health Maintenance - Discussed the importance of smoking cessation and the patient reported quitting at the beginning of the year. - Advised on the need for regular follow-ups with nephrology and urology. - Emphasized the importance of managing cholesterol levels with statins. Social History - The patient has quit smoking since the beginning of the year. - Reports environmental factors such as open windows during cold weather affecting his respiratory health. Review of Systems - Respiratory: Reports frequent pneumonia and exacerbations of COPD. Denies current cough or wheezing. - Cardiovascular: Denies chest pain or palpitations. - Gastrointestinal: Reports discomfort with tomato-based foods, causing intestinal discomfort. Physical Exam Results - Labs: Creatinine level of 4.12 mg/dL indicating declining renal function. - Labs: LDL cholesterol level of 114 mg/dL, above the target for peripheral arterial disease. - Imaging: Abdominal ultrasound showed no cholelithiasis or choledocholithiasis, normal liver and spleen. - Imaging: Bilateral renal artery stenting noted, no hydronephrosis, presence of bilateral renal cysts. Plan The patient will continue with current antihypertensive medications, including hydralazine, metoprolol, nifedipine, and spironolactone, to manage blood pressure while monitoring kidney function closely. Regular follow-ups with nephrology are essential to assess the progression of chronic kidney disease and discuss potential renal replacement therapy. For coronary artery disease, the patient will remain on clopidogrel and aspirin, with continued follow-up with a vascular surgeon for peripheral vascular disease management. The patient is advised to restart atorvastatin 80 mg to manage hyperlipidemia, aiming for an LDL cholesterol level below 70 mg/dL. Smoking cessation is strongly encouraged, and the patient has reported quitting smoking at the beginning of the year, which is beneficial for COPD management. The patient is advised to avoid environmental triggers that may exacerbate COPD symptoms, such as exposure to cold air. Patient was informed and verbally consented to the use of an ambient scribe for clinic note documentation during this visit. Discussion Notes I discussed with the patient the importance of managing blood pressure to prevent further kidney damage and the need for regular nephrology follow-ups to monitor chronic kidney disease progression. We also reviewed the need to restart atorvastatin to manage hyperlipidemia and reduce cardiovascular risk, aiming for an LDL cholesterol level below 70 mg/dL. The patient was advised on the benefits of smoking cessation for COPD management and the importance of avoiding environmental triggers. Patient Instructions - Continue taking your blood pressure medications as prescribed. - Follow up with nephrology regularly to monitor kidney function. - Restart atorvastatin 80 mg to manage cholesterol levels. - Avoid exposure to cold air to prevent COPD exacerbations. - Maintain smoking cessation to improve respiratory health. Orders: Orders Comprehensive Met. Panel 2 Months E78.00 - Pure hypercholesterolemia, unspecified Complete Blood Count Auto Diff 2 Months E78.00 - Pure hypercholesterolemia, unspecified Thyroid Stimulating Hormone 2 Months E78.00 - Pure hypercholesterolemia, unspecified Lipid Panel 2 Months E78.00 - Pure hypercholesterolemia, unspecified B Type Natriuretic Peptide 2 Months E78.00 - Pure hypercholesterolemia, unspecified Medications: Changed From atorvastatin 80 mg PO .@0600 To atorvastatin 80 mg PO .QD 30 tabs 3RF
--- OUTSIDE RECORDS SUMMARY | 2025-02-15 14:49 | XMS_ITS | Encounter Summary ---
Author Organization [facility] Address [address] [place] [address] Phone Care Team Providers Care Aluminizer Name Role Phone Michael Chery MD Primary Care Provider [phone] Encounter Details Date Type Department Care Team (Latest Contact Info) Description 03/30/2018 Ancillary Orders [facility] [address] [place] [address] Jacqueline Landis MD [phone] [place] [address] [email or web address] Peripheral vascular disease; Other specified symptoms and signs involving the circulatory and respiratory systems; Atherosclerosis of aorta Social History Tobacco Use Types Packs/Day Years Used Date Smoking Tobacco: Every Day Smokeless Tobacco: Never Sex and Gender Information Value Date Recorded Sex Assigned at Not on file Legal Sex Male 9:54 PM EDT Gender Identity Not on file Sexual Orientation Not on file documented as of this encounter Plan of Treatment Not on file documented as of this encounter Visit Diagnoses Diagnosis Peripheral vascular disease Unspecified peripheral vascular disease Other specified symptoms and signs involving the circulatory and respiratory systems Atherosclerosis of aorta documented in this encounter Care Teams Aluminizer Relationship Specialty Start Date End Date Michael Chery MD [address] [place] [id number] PCP - General Internal Medicine 04/09/18 documented as of this encounter Additional Source Comments The information contained in this document represents components of the legal health record. It is not the complete legal health record.[facility]
== END 2025-02-15 15:02 | disposition home or self-care (01) ==
LOC: HO.HMCH 14:04
PROVIDERS: PCP Internal Medicine; Visit Provider Internal Medicine
DX: I12.9 Hypertensive chronic kidney disease with stage 1 through stage 4 chronic kidney disease, or unspecified chronic kidney disease (principal); N18.4 Chronic kidney disease, stage 4 (severe); C61 Malignant neoplasm of prostate; J43.1 Panlobular emphysema; I25.10 Atherosclerotic heart disease of native coronary artery without angina pectoris; I73.9 Peripheral vascular disease, unspecified; Z98.890 Other specified postprocedural states; E78.00 Pure hypercholesterolemia, unspecified; D64.9 Anemia, unspecified; Z72.0 Tobacco use

== ENCOUNTER → 2025-02-15 14:04 | Outpatient (BNVA) | payer MEDICARE, SELFPAY | PROVIDERS: PCP Internal Medicine; Visit Provider Internal Medicine | DX: I25.10 Atherosclerotic heart disease of native coronary artery without angina pectoris (principal); I73.9 Peripheral vascular disease, unspecified; E78.00 Pure hypercholesterolemia, unspecified; I12.9 Hypertensive chronic kidney disease with stage 1 through stage 4 chronic kidney disease, or unspecified chronic kidney disease; N18.4 Chronic kidney disease, stage 4 (severe); D64.9 Anemia, unspecified; C61 Malignant neoplasm of prostate; J43.1 Panlobular emphysema; Z98.890 Other specified postprocedural states; Z87.891 Personal history of nicotine dependence | CPT/HCPCS: 99212 ==

== ENCOUNTER 2025-03-16 07:22 | Outpatient (REF) | payer MEDICARE, SELFPAY ==
--- OUTSIDE RECORDS SUMMARY | 2025-03-16 07:25 | XMS_ITS | Clinical Summary ---
Author Organization [facility] Address [address] [place] [id number] Phone Care Team Providers Care Senior Geologist Name Role Phone Michael Chery MD Primary Care Provider [phone] Allergies Active Allergy Reactions Criticality Noted Date Comments Penicillins 04/09/2018 Medications SYMBICORT 80-4.5 mcg/actuation inhalerIndications :Chronic obstructive pulmonary disease inhale 2 puffs by mouth twice a day 1 Inhaler 3 08/04/19 18 Active triamcinolone acetonide 0.1 % cream APPLY 1 APPLICATION TO AFFECTED AREA TWICE A DAY FOR 10 DAYS 30 g 1 08/20/19 18 Active ipratropium-albute rol (COMBIVENT RESPIMAT) 20-100 mcg/actuation Mist 1 puff 05/20/20 13 Active hydroCHLOROthiazid e (HYDRODIURIL) 25 MG tablet TAKE 1 TABLET BY MOUTH EVERY MORNING 90 tablet 2 01/20/20 18 Active atorvastatin (LIPITOR) 40 MG tabletIndications: Hyperlipidemia, unspecified hyperlipidemia type Take 1 tablet (40 mg total) by mouth daily. 90 tablet 2 12/09/19 19 Active ZONTIVITY 2.08 mg tabletIndications: Medication refill take 1 tablet by mouth once daily 30 tablet 11 08/15/19 20 Active Active Problems Problem Noted Date Diagnosed Date Smoking 04/09/2018 Peripheral vascular disease 08/28/2017 Assessment & Plan (04/09/2018 10:40 AM EDT): His peripheral vascular disease is very stable over the past several years that I have followed him. A year ago his LAUREANO was 0.5 on the right - he canceled his ultrasound because he saw another vascular surgeon who rushed him to do an angiogram which I am not sure he actually needed given his symptoms have been so stable. My recommendation continues to be conservative therapy I would absolutely not have him undergo any surgery for this at this time. I told him if he wants to continue follow-up with other vascular surgeon he can decide that and let me know. Otherwise I am happy to continue following his vascular disease as we have been doing for years. Assessment & Plan (08/28/2017 4:25 PM EST): I did explain to him this is not likely from radiation therapy even if it was management would not be different. He needs to stop smoking 1 over this again. I want to repeat his next scan around March which be a year since his last scan since things are stable and his symptoms are stable. Will cont vorapaxar. Atherosclerosis of [place] co ronary artery of [place] heart without angina pectoris 08/28/2017 Assessment & Plan (04/09/2018 10:39 AM EDT): Single vessel coronary disease on medical therapy no angina. He really needs to stop smoking. Aggressive lipid lowering. Assessment & Plan (08/28/2017 4:26 PM EST): Known coronary artery disease by catheterization with diagonal lesion managed medically. No angina currently. Continue current medical therapy. Social History Tobacco Use Types Packs/Day Years Used Date Smoking Tobacco: Every Day Smokeless Tobacco: Never Education Answer Date Recorded Are you interested in more education? Not on polina e 11/21/2022 Are you concerned about learning? Not on file 11/21/2022 No 11/21/2022 No 11/21/2022 Digital Access Answer Date Recorded No 12/22/2022 No 12/22/2022 Reliable internet access at home? Not on file 12/22/2022 Device with a working camera? Not on file Sex and Gender Information Value Date Recorded Sex Assigned at Not on file Legal Sex Male 9:54 PM EDT Gender Identity Not on file Sexual Orientation Not on file Last Filed Vital Signs Vital Sign Reading Time Taken Comments Blood Pressure 124/82 04/09/2018 10:12 AM EDT Pulse 72 04/09/2018 10:12 AM EDT Temperature 36.3 C (97.3 F) 04/28/2017 4:57 AM EDT Respiratory Rate - - Oxygen Saturation 96% 04/09/2018 10: 12 AM EDT Inhaled Oxygen Concentration - - Weight 68.8 kg (151 lb 11.2 oz) 018 10:12 AM EDT Height 179.1 cm (5' 10.5 ) 04/09/2018 1 0:12 AM EDT Body Mass Index 21.46 04/09/2018 10:12 AM EDT Plan of Treatment Health Maintenance Due Date Last Done Comments POTASSIUM LEVEL 1956 DEPRESSION SCREENING 1968 SMOKING Hx and SMOKELESS TOBACCO SCREENING 1969 HEPATITIS C SCREENING 1974 COLOGUARD 2001 COLONOSCOPY 2001 COLORECTAL CANCER SCREENING 2001 FIT TEST 2001 FOBT 2001 SIGMOIDOSCOPY 2001 VIRTUAL COLONOSCOPY 2001 ZOSTER VACCINES (1 of 2) 2006 PNEUMOCOCCAL VACCINES (50+ years) (2 of 2 - PCV) 01/12/2019 01/12/2018, 05/18/2013 ABDOMINAL AORTIC ANEURYSM (AAA) SCREENING 2021 COVID-19 VACCINE ( - 2023-2 5 season) 2024 Adult Td,Tdap Booster 04/01/2026 04/01/2016 RSV VACCINE (1 - 1-dose 75+ series) 2031 HEPATITIS A VACCINES Aged Out No long er eligible based on patient's age to complete this topic HIB VACCINES Aged Out No longer eligi ble based on patient's age to complete this topic MENINGOCOCCAL VACCINES (ACWY) Aged Out No longer eligible based on patient's age to complete this topic MENINGOCOCCAL VACCINES (B) Aged Out N o longer eligible based on patient's age to complete this topic Medical Devices Not on file Insurance [address] [place], [place] [id number] POS O POS HMO POS HMO POS HMO POS HMO POS O POS [facility] Care Teams Senior Geologist Relationship Specialty Start Date End Date Michael Chery MD [address] [place] [id number] PCP - General Internal Medicine 04/09/18 Additional Source Comments The information contained in this document represents components of the legal health record. It is not the complete legal health record.[facility]
[2025-03-16 08:20] LABS: Anion Gap 16 (12-20); Blood Urea Nitrogen 55 mg/dL (9-16); Calcium 9.2 mg/dL (8.4-10.2); Carbon Dioxide 19 mmol/L (22-29); Chloride 106 mmol/L (96-108); Estimated Glomerular Filt Rate 15; Potassium 3.9 mmol/L (3.3-5.1); Sodium 137 mmol/L (135-145)
[2025-03-16 08:25] LABS: Parathyroid Hormone Intact 155.4 pg/mL (8.7-77.1)
[2025-03-16 15:23] LABS: Appearance Urine Clear; Glucose Urine UA Negative (Negative); PH 5.5 (5.0-9.0); Specific Gravity - Urine 1.015 (1.005-1.025); UMIC TRIGGER UACC YES
== END 2025-03-16 07:23 | disposition home or self-care (01) ==
LOC: HO.LAB 07:22
PROVIDERS: Absent Provider Internal Medicine Nephrology; PCP Internal Medicine; Visit Provider Internal Medicine
DX: I12.9 Hypertensive chronic kidney disease with stage 1 through stage 4 chronic kidney disease, or unspecified chronic kidney disease (principal); N18.4 Chronic kidney disease, stage 4 (severe); I25.10 Atherosclerotic heart disease of native coronary artery without angina pectoris; R79.89 Other specified abnormal findings of blood chemistry; I49.3 Ventricular premature depolarization; I73.9 Peripheral vascular disease, unspecified; E78.00 Pure hypercholesterolemia, unspecified; Z98.890 Other specified postprocedural states; Z79.82 Long term (current) use of aspirin; Z79.899 Other long term (current) drug therapy
CPT/HCPCS: 36415; 80051; 81001; 82306; 82310; 82565; 83970; 84100; 84520; 99212

== ENCOUNTER 2025-03-16 07:45 | Outpatient (AMB) | payer MEDICARE, SELFPAY ==
[2025-03-16 08:25] VITALS: BP 114/62; PULSE 60; BMI 18.7
--- NOTE | 2025-03-16 08:25 | A.OFFVIS_ITS ---
Vital Signs 03/16/25 08:25 Height 6 ft Weight 138 lb 0.15 oz BMI 18.7 BP 114/62 Blood Pressure Location Lt brachial Position Sitting Pulse 60 Pulse Source Pulse Oximeter Intake Visit Reasons: 3 mth f/up holter Stock Cutter Required: No Temporary Receptionist: Temporary Receptionist Present Allergies Penicillins Adverse Reaction (Intermediate, Verified 03/16/25 08:27) rash Medication List - Last Reconciled 03/16/25 by Anju Colby, VICE PRESIDENT CLIENT SERVICES-C aspirin (Adult Aspirin Regimen) 81 mg PO DAILY@0600 atorvastatin 80 mg PO .QD bumetanide 1 mg PO DAILY clonidine HCl 0.1 mg PO BID 90 days clopidogrel (Plavix) 75 mg PO DAILY cyanocobalamin (vitamin B-12) 500 mcg PO DAILY@1800 hydralazine 100 mg See Protocol PO BID 90 days metoprolol succinate ER 150 mg (1.5 x 100 mg) PO DAILY mgejumbv-fcbnkutyn-PR 3.5-10,000-1 mg/mL-unit/mL-% 3 drps otic (ears) Q8H 5 days nifedipine ER 120 mg (2 x 60 mg) PO DAILY 30 days spironolactone 75 mg (1.5 x 50 mg) PO DAILY 90 days terazosin 5 mg PO BEDTIME 90 days HPI HPI 3 mth f/up holter: Details: Details Zi is a 69-year-old male with past medical history of hypertension, CKD, renal artery stents, LVH who recently underwent a Holter monitor showing frequent PVCs and now presents for follow-up. Today reports that his primary complaint is lack of appetite. He has not been eating much but tries to remain hydrated with water. He admits to being mostly sedentary and ambulates with his walker. No chest discomfort at rest or with activity. No shortness of breath, PND, orthopnea or edema. No heart palpitations, lightheadedness, presyncope, syncope. Taking all meds as directed. He believes his medications are what is causing his lack of appetite. He has follow-up next week with Nephrology. is present. [facility] Medical History CKD stage 3b, GFR 30-44 ml/min Renal insufficiency History of stent insertion of renal artery CKD (chronic kidney disease) Subarachnoid hemorrhage Tubular adenoma COVID-19 vaccination refused History of testicular cancer Peripheral arterial disease Hypercholesterolemia Coronary artery disease Tobacco abuse COPD (chronic obstructive pulmonary disease) Hypertension Surgical History History of surgery Hx of colonoscopy Hx of prostate biopsy History of tonsillectomy History of testicular surgery Family History Father No problems noted. Mother No problems noted. Maternal Grandmother Myocardial infarction Brother In good health Sister In good health Son In good health Son In good health Daughter In good health Sister Diabetes Social History Household Members: Spouse, Significant Other and Family Household Members Other:: 6 Housing: House Are you a primary personal care aide to a significant other at home: No Do you presently have visiting nurse or other home services: No Alcohol intake: former Patient Tobacco Use Status: Former Tobacco user Tobacco use type: Cigarette Cigarette Packs Per Day: 0.5 Cigarettes Per Day: 2 Years Smoked: 53 years- 10/PER DAY stopped smoking 07/2024 e-Cigarette/Vaping Use: Never Used Second Hand Smoke Exposure: Yes service: No Current occupational status: employed Current occupational exposures/hazards: No Cognitive needs: No Hearing needs: No Vision needs: Yes Review of Systems Const All systems reviewed & are unremarkable except as noted in HPI and below Reports fatigue and Reports poor appetite ENT Denies dizziness Card Denies chest pain, Denies chest pain at rest, Denies chest pain with activity, Denies rapid heart rate, Denies pedal edema, Denies edema, Denies leg edema, Denies lightheadedness, Denies palpitations, Denies dyspnea, Denies dyspnea on exertion and Denies orthopnea Resp Denies cough, Denies dyspnea and Denies dyspnea on exertion GI Denies hematochezia and Denies change in stool character Musc Reports abnormal gait (Uses walker), Denies limited range of motion, Denies muscle cramps, Denies muscle weakness, Denies numbness, Denies radiating pain into limb, Denies stiffness and Denies tingling Neuro Reports abnormal gait (Uses walker), Denies dizziness, Denies numbness and Denies tingling Endo Reports fatigue and Denies palpitations Physical Exam Vital Signs: BMI result Body Mass Index 18.7 Const General: cooperative, comfortable and no acute distress Nutritional Appearance: thin and underweight Orientation/consciousness: patient oriented x3 Neck Neck: Yes normal visual inspection and Yes no JVD Resp Effort & Inspection: normal respiratory effort Auscultation: clear to auscultation bilaterally, no rales, no rhonchi and no wheezes Cardio Rate: regular rate Rhythm: regular rhythm Heart sounds: S1 normal heart sound present, S2 normal heart sound present, no gallops, no murmurs and no rubs Neuro General: patient oriented x3 Extrem General: Yes normal to inspection, No no pedal edema and No calf tenderness Psych Appearance: grossly normal Mental Status: mental status grossly normal Speech and movement: Normal speech and movement present Assessment & Plan Assessment & Plan (1) Hypertension: Code(s): I10 - Essential (primary) hypertension Category: Medical Qualifiers: Hypertension type: essential hypertension Qualified Code(s): I10 - Essential (primary) hypertension Plan: History of chronic hypertension, difficult to control with renal artery stenosis status post stents, following with Nephrology and on multiple medications. [place] blood pressure goal less than 130/80. Blood pressure recorded to be dipesh l range today. No medication changes made. Continuing hydralazine, Bumex, clonidine, metoprolol, nifedipine, Aldactone, terazosin. Continue to follow with Nephrology. (2) Elevated brain natriuretic peptide (BNP) level: Code(s): R79.89 - Other specified abnormal findings of blood chemistry Category: Medical Plan: In July had elevated BNP, up to 1183 with bilateral pleural effusions. His echocardiogram showed normal EF, mild LVH and impaired relaxation with moderately dilated RV. He is treated with blood pressure control and on Bumex 1 mg daily. On exam today he does not appear fluid overloaded. Signs and symptoms of heart failure reviewed with him. (3) PVC (premature ventricular contraction): Code(s): I49.3 - Ventricular premature depolarization Category: Medical Plan: Recent EKGs and EKG last visit each show frequent PVCs, asymptomatic. Echocardiogram had shown normal EF. Holter monitor done 12/27/2024 for 3 days shows sinus rhythm with average heart rate 70 beats per minute, PVCs 21% of time. His metoprolol dose was increased from 100 mg up to 150 mg daily at that time. Pulse is regular on examination today. Will check pharmacological nuclear stress test. Finding of frequent PVCs reviewed with him. (4) Coronary artery disease: Comment: saw [facility] pre-femoral/femoral bypass surgery 2022-sees PCP Dr. Chery & Dr. Veras-vascular Code(s): I25.10 - Atherosclerotic heart disease of [place] coronary artery without angina pectoris Category: Medical Qualifiers: Coronary Disease-Associated Artery/Lesion type: [place] artery [place] vs. transplanted heart: [place] heart Associated angina: without angina Qualified Code(s): I25.10 - Atherosclerotic heart disease of [place] coronary artery without angina pectoris Plan: CT scan of the chest, July 2024, does show coronary calcifications. He has known peripheral vascular disease as well. No anginal symptoms at this time. He is on dual antiplatelet therapy for his PAD. Continue atorvastatin with ideal LDL goal less than 70. Continue metoprolol. Recent Holter showing frequent PVCs, 20%. Will order pharmacological nuclear stress test to evaluate for ischemia. He ambulates with a walker and is not able to walk on treadmill. Signs and symptoms of angina reviewed. (5) CKD (chronic kidney disease) stage 4, GFR 15-29 ml/min: Code(s): N18.4 - Chronic kidney disease, stage 4 (severe) Category: Medical Plan: Follows with Nephrology (6) History of stent insertion of renal artery: Code(s): Z98.890 - Other specified postprocedural states Category: Medical Plan: History of renal artery stents, Recent renal artery ultrasound showing no hemodynamically significant stenosis. Continue dual antiplatelet therapy. (7) Peripheral arterial disease: Comment: Right leg severe February 2019 status post femoral bypass Code(s): I73.9 - Peripheral vascular disease, unspecified Category: Medical Plan: No reports of claudication but does admit to being mostly sedentary. (8) Hypercholesterolemia: Code(s): E78.00 - Pure hypercholesterolemia, unspecified Category: Medical Plan: [place] LDL goal less than 70 in patient with CAD. Recently started on statin. Recommend recheck of fasting lipids. (9) Frequent PVCs: Code(s): I49.3 - Ventricular premature depolarization Category: Medical Plan: As above Plan I discussed with the patient the plan to conduct a nuclear stress test to evaluate the perfusion of blood flow to the heart muscle. The test will be performed at the hospital, and medication will simulate exercise, eliminating the need for a treadmill. I explained that the patient's current medication regimen will remain unchanged, as his blood pressure is stable. The metoprolol dosage will continue at 150 mg to manage premature ventricular contractions. I advised the patient to maintain adequate hydration to potentially improve his appetite and manage hypotension, and encouraged the consumption of protein-rich foods to address nutritional needs. Orders: Orders CA lexiscan stress w [place] Today I25.10 - Atherosclerotic heart disease of [place] coronary artery without angina pectoris, I49.3 - Ventricular premature depolarization NM cardiolite stress test Today I25.10 - Atherosclerotic heart disease of [place] coronary artery without angina pectoris, I49.3 - Ventricular premature depolarization Patient Instructions: - Maintain adequate hydration to improve appetite and manage blood pressure. - Consume protein-rich foods to meet nutritional needs. - Follow up with the kidney doctor next week for blood pressure management. - Attend the scheduled nuclear stress test at the hospital. Patient was informed and verbally consented to the use of an ambient scribe for clinic note documentation during this visit. Visit time spent on chart review, interview, assessment, orders, documentation. Coding Level of Care Code Est Pt Level 4 (49671) Complex EM visit Add On G2211 Diagnoses Essential hypertension I10 Hypertension type: essential hypertension Elevated brain natriuretic peptide (BNP) level R79.89 PVC (premature ventricular contraction) I49.3 Coronary artery disease involving [place] coronary artery of [place] heart without angina pectoris I25.10 Coronary Disease-Associated Artery/Lesion type: [place] artery [place] vs. transplanted heart: [place] heart Associated angina: without angina CKD (chronic kidney disease) stage 4, GFR 15-29 ml/min N18.4 History of stent insertion of renal artery Z98.890 Peripheral arterial disease I73.9 Hypercholesterolemia E78.00 Frequent PVCs I49.3 Time Spent (min) 28
== END 2025-03-16 08:59 | disposition home or self-care (01) ==
LOC: HO.HCS 07:46
PROVIDERS: PCP Internal Medicine; Visit Provider Nurse Practitioner Family
DX: I12.9 Hypertensive chronic kidney disease with stage 1 through stage 4 chronic kidney disease, or unspecified chronic kidney disease (principal); R79.89 Other specified abnormal findings of blood chemistry; I49.3 Ventricular premature depolarization; I25.10 Atherosclerotic heart disease of native coronary artery without angina pectoris; N18.4 Chronic kidney disease, stage 4 (severe); Z98.890 Other specified postprocedural states; I73.9 Peripheral vascular disease, unspecified; E78.00 Pure hypercholesterolemia, unspecified
CPT/HCPCS: 99214; G2211

== ENCOUNTER 2025-03-22 10:46 | Outpatient (AMB) | payer MEDICARE, SELFPAY ==
--- NOTE | 2025-03-22 10:49 | HO.NEPHOV ---
Vital Signs 03/22/25 10:52 Height 6 ft Weight 139 lb 4 oz BMI 18.9 BP 120/60 Blood Pressure Location Lt brachial Position Sitting Pulse 64 Pulse Source Pulse Oximeter Pulse Oximetry (%) 98 Oxygen Delivery Method Room Air Intake Visit Reasons: 2mon follow-up w/labs-Conf Angular Developer Required: No Accompanied by: Son Allergies Penicillins Adverse Reaction (Intermediate, Verified 03/22/25 10:52) rash HPI Comments Details: 69-year-old man with a history of hypertension and significant vascular disease who had a baseline creatinine about 1.0- 1.2 mg/dL in October of 2022. In June of 2023 creatinine went up to 1.6 with it going upto 1.9 in July and 2.63 in November 2023. He also had been on hydrochlorothiazide 50 mg at that time which was reduced to 25 mg due to hypokalemia.He has a history of testicular cancer and underwent radiation several years ago which he attributes to his vascular disease. He has H/O fem- fem bypass surgery by Dr. Veras. Apparently he had a coronary angiogram in [facility] which was reportedly normal.(I have not seen the results). He has a history of smoking for several years. He continues to smoke cigarettes despite peripheral vascular disease and dyslipidemia.He has no new rash. He was seen in ER for accelerated hypertension & at that time his serum creatinine bumped up to 3.19. Previously CT angiogram of the abdomen in 2021 showed bilateral atherosclerosis disease of renal arteries.He underwent angiography and B/L renal artery stenting. He had taken hydralazine but could not tolerate due to side effects. He recently was admitted for acute on chronic diastolic CHF complicated by acute hypoxic respiratory failure. Was treated with IV Bumex which was then complicated by acute kidney injury on CKD 4. Creatinine stabilized & is fairly stable now. For peripheral vascular disease he is continued on dual antiplatelet and statin. He is feeling very tired ever since his BP has been running low normal for him [facility] Medical History CKD stage 3b, GFR 30-44 ml/min Renal insufficiency History of stent insertion of renal artery CKD (chronic kidney disease) Subarachnoid hemorrhage Tubular adenoma COVID-19 vaccination refused History of testicular cancer Peripheral arterial disease Hypercholesterolemia Coronary artery disease Tobacco abuse COPD (chronic obstructive pulmonary disease) Hypertension Surgical History History of surgery Hx of colonoscopy Hx of prostate biopsy History of tonsillectomy History of testicular surgery Family History Father No problems noted. Mother No problems noted. Maternal Grandmother Myocardial infarction Brother In good health Sister In good health Son In good health Son In good health Daughter In good health Sister Diabetes Social History Household Members: Spouse, Significant Other and Family Household Members Other:: 6 Housing: House Are you a primary district manager primary care sales to a significant other at home: No Do you presently have visiting nurse or other home services: No Alcohol intake: former Patient Tobacco Use Status: Former Tobacco user Tobacco use type: Cigarette Cigarette Packs Per Day: 0.5 Cigarettes Per Day: 2 Years Smoked: 53 years- 10/PER DAY stopped smoking 07/2024 e-Cigarette/Vaping Use: Never Used Second Hand Smoke Exposure: Yes service: No Current occupational status: employed Current occupational exposures/hazards: No Cognitive needs: No Hearing needs: No Vision needs: Yes Review of Systems Const All systems reviewed & are unremarkable except as noted in HPI and below Physical Exam Const General: comfortable and no acute distress Orientation/consciousness: patient oriented x3 HEENT Head: Yes normocephalic Mouth: Normal oral and palatal mucosa present Eyes EOM: EOMs intact bilaterally Neck Neck: Yes supple Resp Auscultation: clear to auscultation bilaterally Cardio Jugular venous distension: no JVD Rate: regular rate GI Palpation (GI): Soft to palpation Auscultation: normal bowel sounds General: Yes no CVA tenderness Back/Spine/Pelvis Back: no CVA tenderness Skin General skin exam: no rashes or lesions noted Neuro General: patient oriented x3 and moves all extremities Extrem General: Yes no pedal edema Results Reviewed Nephrology Results: Hgb, (14.0-18.0) 12.1 g/dl L 01/16/25 WBC, (4.8-10.8) 6.7 X10*3/uL 01/16/25 Plt Count, (160-400) 280 X10*3/uL 01/16/25 Sodium, (135-145) 137 mmol/L 03/16/25 Potassium, (3.3-5.1) 3.9 mmol/L 03/16/25 Chloride, (96-108) 106 mmol/L 03/16/25 Carbon Dioxide, (22-29) 19 mmol/L L 03/16/25 BUN, (9-16) 55 mg/dL H 03/16/25 Creatinine, (0.5-1.4) 3.95 mg/dL H 03/16/25 Calcium, (8.4-10.2) 9.2 mg/dL 03/16/25 Phosphorus, (2.7-4.5) 3.5 mg/dL 03/16/25 PTH Intact, (8.7-77.1) 155.4 pg/mL H 03/16/25 Urine Protein, (Neg-Trace) 30 (1+) mg/dL H 03/16/25 Renal US 09/05/24 Assessment & Plan Assessment & Plan (1) Hypertension: Code(s): I10 - Essential (primary) hypertension Category: Medical Qualifiers: Hypertension type: essential hypertension Qualified Code(s): I10 - Essential (primary) hypertension (2) History of stent insertion of renal artery: Code(s): Z98.890 - Other specified postprocedural states Category: Medical (3) CKD (chronic kidney disease) stage 4, GFR 15-29 ml/min: Code(s): N18.4 - Chronic kidney disease, stage 4 (severe) Category: Medical Plan 69-year-old man with a history of longstanding hypertension dyslipidemia and peripheral vascular disease in the setting of chronic smoking currently has progressive chronic kidney disease, likely from ischemic nephropathy. He is S/P B/L renal artery stenting. His BP has been labile and medications have been adjusted with improvement. Given he is very tired, I backed off on Metoprolol to 100 mg daily. He avoids NSAID's. He could continue rest of current medications for now. During his previous visits, I had discussed about declining renal function and need for renal replacement in the future. Follow up given Coding Level of Care Code Est Pt Level 4 (87709) Diagnoses Essential hypertension I10 Hypertension type: essential hypertension History of stent insertion of renal artery Z98.890 CKD (chronic kidney disease) stage 4, GFR 15-29 ml/min N18.4
[2025-03-22 10:52] VITALS: BP 120/60; PULSE 64; O2SAT 98; BMI 18.9
--- OUTSIDE RECORDS SUMMARY | 2025-03-22 11:40 | XMS_ITS | Clinical Summary ---
Author Organization [facility] Address [address] [place] [id number] Phone Care Team Providers Care Silver Service Waiter Name Role Phone Michael Chery MD Primary Care Provider [phone] Allergies Active Allergy Reactions Criticality Noted Date [...] are stable. Will cont vorapaxar. Atherosclerosis of [place] ronary artery of [place] heart without angina pectoris 08/28/2017 Assessment & [...] topic Medical Devices Not on file Insurance [address] [place], [place] [id number] POS O POS HMO POS HMO POS HMO POS HMO POS O POS HMO POS [facility] Care Teams Silver Service Waiter Relationship Specialty Start Date End Date Michael Chery MD [address] [place] [id number] PCP - General Internal Medicine 04/09/18 Additional Source Comments The information contained in this document represents components of the legal health record. It is not the complete legal health record.[facility]
--- OUTSIDE RECORDS SUMMARY | 2025-03-22 11:40 | XMS_ITS | Encounter Summary ---
Author Organization [facility] Address [address] [place] [address] Phone Care Team Providers Care Microfilm Technician Name Role Phone Michael Chery MD Primary Care Provider [phone] Encounter Details Date Type Department Care Team (Latest Contact Info) Description 03/30/2018 Ancillary Orders [facility] [address] [place] [address] Jacqueline Landis MD [phone] [place] [address] [email or web address] Peripheral vascular disease; Other specified symptoms [...] aorta documented in this encounter Care Teams Microfilm Technician Relationship Specialty Start Date End Date Michael Chery MD [address] [place] [id number] PCP - General Internal Medicine 04/09/18 documented as of this encounter Additional Source Comments The information contained in this document represents components of the legal health record. It is not the complete legal health record.[facility]
== END 2025-03-22 11:13 | disposition home or self-care (01) ==
LOC: HO.HKA 10:47
PROVIDERS: PCP Internal Medicine; Visit Provider Internal Medicine Nephrology
DX: I12.9 Hypertensive chronic kidney disease with stage 1 through stage 4 chronic kidney disease, or unspecified chronic kidney disease (principal); Z98.890 Other specified postprocedural states; N18.4 Chronic kidney disease, stage 4 (severe)
CPT/HCPCS: 99214

== ENCOUNTER → 2025-03-22 10:46 | Outpatient (BNVA) | payer MEDICARE, SELFPAY | PROVIDERS: PCP Internal Medicine; Visit Provider Internal Medicine Nephrology | DX: I12.9 Hypertensive chronic kidney disease with stage 1 through stage 4 chronic kidney disease, or unspecified chronic kidney disease (principal); N18.4 Chronic kidney disease, stage 4 (severe); Z98.890 Other specified postprocedural states | CPT/HCPCS: 99212 ==

== ENCOUNTER 2025-04-10 16:29 | Outpatient (AMB) | payer MEDICARE, SELFPAY ==
[2025-04-10 16:37] VITALS: BP 128/62; PULSE 67; O2SAT 98; BMI 18.6
--- NOTE | 2025-04-10 16:37 | MHC.PC.OV ---
Vital Signs 04/10/25 16:37 Height 6 ft Weight 137 lb BMI 18.6 BP 128/62 Blood Pressure Location Lt brachial Position Sitting Pulse 67 Pulse Source Pulse Oximeter Pulse Oximetry (%) 98 Oxygen Delivery Method Room Air Intake Visit Reasons: Mole on back and leg Allergies Penicillins Adverse Reaction (Intermediate, Verified 04/10/25 16:37) rash Medication List - Last Reconciled 04/10/25 by Michael Chery MD aspirin (Adult Aspirin Regimen) 81 mg PO DAILY@0600 atorvastatin 80 mg PO .QD bumetanide 1 mg PO Q OTHER DAY cholecalciferol (vitamin D3) 50 mcg PO DAILY clonidine HCl 0.1 mg PO BID 90 days clopidogrel (Plavix) 75 mg PO DAILY cyanocobalamin (vitamin B-12) 500 mcg PO DAILY@1800 hydralazine 100 mg See Protocol PO BID 90 days metoprolol succinate ER 150 mg (1.5 x 100 mg) PO DAILY nifedipine ER 120 mg (2 x 60 mg) PO DAILY 30 days spironolactone 75 mg (1.5 x 50 mg) PO DAILY 90 days terazosin 5 mg PO BEDTIME 90 days Tobacco use date assessed: 02/15/25 Fall risk assessment: No Falls in past year Last assessed Fall Risk: 04/10/25 Dental Screening Dental Screen Date: 02/15/25 [facility] Medical History CKD stage 3b, GFR 30-44 ml/min Renal insufficiency History of stent insertion of renal artery CKD (chronic kidney disease) Subarachnoid hemorrhage Tubular adenoma COVID-19 vaccination refused History of testicular cancer Peripheral arterial disease Hypercholesterolemia Coronary artery disease Tobacco abuse COPD (chronic obstructive pulmonary disease) Hypertension Surgical History History of surgery Hx of colonoscopy Hx of prostate biopsy History of tonsillectomy History of testicular surgery Family History Father No problems noted. Mother No problems noted. Maternal Grandmother Myocardial infarction Brother In good health Sister In good health Son In good health Son In good health Daughter In good health Sister Diabetes Social History Household Members: Spouse, Significant Other and Family Household Members Other:: 6 Housing: House Are you a primary primary care physician to a significant other at home: No Do you presently have visiting nurse or other home services: No Alcohol intake: former Patient Tobacco Use Status: Former Tobacco user Tobacco use type: Cigarette Cigarette Packs Per Day: 0.5 Cigarettes Per Day: 2 Years Smoked: 53 years- 10/PER DAY stopped smoking 07/2024 Packs Per Year: 0 Packs per year/per ci.00 e-Cigarette/Vaping Use: Never Used Second Hand Smoke Exposure: Yes service: No Current occupational status: employed Current occupational exposures/hazards: No Cognitive needs: No Hearing needs: No Vision needs: Yes Questionnaire Thrive Questionnaire Date Thrive assessed: 02/15/25 I am a: Patient What is your living situation today?: I have a steady place to live Within the past 12 months, did the food you bought not last and you didn't have the money to get more?: Never true Within the past 12 months, did you worry whether your food would run out before you got money to buy more?: Sometimes True Do you have trouble paying for medicines?: No Do you have trouble getting transportation to medical appointments?: No Do you have trouble paying your heating and electricity bill?: I choose not to answer this question Do you have trouble taking care of your child, family member or friend?: No Do you have trouble with day-to-day activities such as bathing, preparing meals, shopping, managing finances, etc.?: No Are you currently unemployed and looking for a job?: No Are you interested in more education?: No Please select the resources that you would like help with: None Currently or been in a relationship where the following occur: I choose not to answer THRIVE Score: 1 BIANCA-7 AMB Questionnaire BIANCA-7 Date BIANCA - 7 assessed: 01/03/25 Source: Developed by Drs. Tad Angel, Jennie Nicole, Tello Mendoza and colleagues, with an educational noemi from [employer]. Physical exam (Primary Care) Vital Signs: Last Vital Signs Pulse 67 04/10/25 16:37 BP 128/62 04/10/25 16:37 Pulse Ox 98 04/10/25 16:37 Oxygen Delivery Method Room Air 04/10/25 16:37 BMI result Body Mass Index 18.6 Tobacco/Smoking Status: Tobacco use Status Tobacco use date assessed 02/15/25 04/10/25 16:38 Patient Tobacco Use Status Former Tobacco user 04/10/25 16:38 Tobacco use type Cigarette 04/10/25 16:38 e-Cigarette/Vaping Use Never Used 04/10/25 16:38 Thrive Assessment: Date of Thrive Assessment Date Thrive assessed 02/15/25 04/10/25 16:38 Currently or been in a relationship where the following occur: I choose not to answer Const General: alert; No acute distress Eyes Conjunctivae: conjunctivae normal Resp Auscultation: clear to auscultation bilaterally Cardio Rate: regular rate Rhythm: regular rhythm GI Inspection: Yes normal to inspection Extrem General: Yes normal to inspection and No edema Coding Level of Care Code Est Pt Level 4 (96631) Complex EM visit Add On G2211 Diagnoses Essential hypertension I10 Hypertension type: essential hypertension Coronary artery disease involving [place] coronary artery of [place] heart without angina pectoris I25.10 Associated angina: without angina Coronary Disease-Associated Artery/Lesion type: [place] artery [place] vs. transplanted heart: [place] heart Peripheral arterial disease I73.9 Hypercholesterolemia E78.00 CKD (chronic kidney disease) stage 4, GFR 15-29 ml/min N18.4 Actinic keratosis L57.0 Low back pain M54.50 Right shoulder pain M25.511 Assessment & Plan Assessment & Plan (1) Hypertension: Code(s): I10 - Essential (primary) hypertension Category: Medical Qualifiers: Hypertension type: essential hypertension Qualified Code(s): I10 - Essential (primary) hypertension Plan: Continue with blood pressure medication. Decrease salt intake and exercise patient has renal artery stenosis and had stents placed. Patient on clonidine, hydralazine, metoprolol, nifedipine, spironolactone. (2) Coronary artery disease: Comment: saw [facility] pre-femoral/femoral bypass surgery 2022-sees PCP Dr. Chery & Dr. Veras-vascular Code(s): I25.10 - Atherosclerotic heart disease of [place] coronary artery without angina pectoris Category: Medical Qualifiers: Associated angina: without angina Coronary Disease-Associated Artery/Lesion type: [place] artery [place] vs. transplanted heart: [place] heart Qualified Code(s): I25.10 - Atherosclerotic heart disease of [place] coronary artery without angina pectoris Plan: Control the cholesterol, weight, blood pressure, continue with aspirin and on Plavix (3) Peripheral arterial disease: Comment: Right leg severe February 2019 status post femoral bypass Code(s): I73.9 - Peripheral vascular disease, unspecified Category: Medical Plan: Continue with Plavix (4) Hypercholesterolemia: Code(s): E78.00 - Pure hypercholesterolemia, unspecified Category: Medical Plan: Avoid fried foods, chicken skin, eggs, butter margarine, pastries and meat. Be it pork or beef they have a lot of cholesterol LDL goal of less than 70 and triglyceride of less than 150 on atorvastatin 80 mg once a day (5) CKD (chronic kidney disease) stage 4, GFR 15-29 ml/min: Code(s): N18.4 - Chronic kidney disease, stage 4 (severe) Category: Medical Plan: Continue to follow up with Cardiology. (6) Actinic keratosis: Code(s): L57.0 - Actinic keratosis Category: Medical (7) Low back pain: Code(s): M54.50 - Low back pain, unspecified Category: Medical (8) Right shoulder pain: Code(s): M25.511 - Pain in right shoulder Category: Medical Plan History of Present Illness The patient is a 69-year-old male presenting with the management of multiple chronic conditions. Hypertension has been a long-standing issue, with the patient currently on multiple antihypertensive medications including clonidine, hydralazine, metoprolol, nifedipine, and spironolactone. The patient has renal artery stenosis and has undergone stent placement, which has contributed to his hypertension management challenges. The patient has a history of Chronic Obstructive Pulmonary Disease (COPD) and continues to experience symptoms related to this condition. Coronary artery disease is another significant concern, with the patient having undergone a CT chest in July 2024 showing coronary calcifications. The patient is on atorvastatin 80 mg daily to manage hypercholesterolemia, with a goal LDL of less than 70 mg/dL. The patient has a history of prostate cancer diagnosed in 2023, with ongoing monitoring by urology. Peripheral vascular disease and peripheral arterial disease are present, with a history of bypass surgery. The patient experienced a subarachnoid hemorrhage in the past, which is part of his complex medical history. Chronic kidney disease is at stage 4, likely due to ischemic nephropathy, with the patient having a creatinine level of 3.95 mg/dL as of February 2021. The patient reports frequent premature atrial contractions or premature ventricular contractions, which are being monitored by cardiology. The patient has actinic keratosis, with dermatology consultation planned for further evaluation. Health Maintenance - Cholesterol management with atorvastatin 80 mg daily, aiming for LDL less than 70 mg/dL - Dermatology referral for actinic keratosis evaluation - Regular follow-up with cardiology for monitoring of cardiac conditions Social History - Reports difficulty standing for extended periods due to back pain, impacting daily activities such as shaving. - Dietary habits include consuming oatmeal for breakfast and grains for dinner, avoiding animal proteins. - Family history of sugar problems, influencing dietary choices. Review of Systems - Cardiovascular: Reports frequent premature atrial contractions or premature ventricular contractions. Denies chest pain. - Respiratory: Reports symptoms consistent with COPD. Denies acute respiratory distress. - Musculoskeletal: Reports lower back pain exacerbated by standing. Denies leg weakness. - Dermatological: Reports actinic keratosis. Denies severe itching or irritation. Physical Exam - Cardiovascular: Blood pressure measured at 128/62 mmHg. Results - Labs: Last creatinine level was 3.95 mg/dL in February 2021, indicating stage 4 chronic kidney disease. - Imaging: CT chest in July 2024 showed coronary calcifications. - Labs: LDL cholesterol was 114 mg/dL in October 2024. Plan Patient was informed and verbally consented to the use of an ambient scribe for clinic note documentation during this visit. 1. Hypertension The patient is on multiple antihypertensive medications including clonidine, hydralazine, metoprolol, nifedipine, and spironolactone to manage hypertension. Renal artery stenosis with stent placement complicates the management of hypertension. 2. Chronic Obstructive Pulmonary Disease (Copd) The patient continues to manage COPD symptoms, with no acute exacerbations reported during this visit. 3. Coronary Artery Disease The patient is on atorvastatin 80 mg daily to manage hypercholesterolemia, with a goal LDL of less than 70 mg/dL. Regular follow-up with cardiology is advised to monitor cardiac health. 4. Chronic Kidney Disease Stage 4 The patient has stage 4 chronic kidney disease, likely due to ischemic nephropathy, with a creatinine level of 3.95 mg/dL as of February 2021. Regular monitoring of renal function and management of contributing factors such as hypertension is essential. 5. Actinic Keratosis Dermatology consultation is planned for further evaluation and management of actinic keratosis. Discussion Notes During the visit, we discussed the importance of managing hypertension with the current medication regimen and the challenges posed by renal artery stenosis. We also reviewed the patient's cholesterol management plan, emphasizing the goal of maintaining LDL levels below 70 mg/dL. The need for regular follow-up with cardiology and dermatology was highlighted to monitor cardiac health and evaluate actinic keratosis, respectively. The patient was advised on dietary modifications to support cholesterol management and the importance of adhering to prescribed medications. Patient Instructions - Continue taking all prescribed medications as directed, including atorvastatin and antihypertensives. - Schedule and attend follow-up appointments with cardiology and dermatology. - Follow dietary recommendations to help manage cholesterol levels, including reducing intake of high-cholesterol foods. - Monitor blood pressure regularly and report any significant changes. Orders: Orders XR lumbar spine 2-3V Today M54.50 - Low back pain, unspecified XR shoulder RT min 2V Today M25.511 - Pain in right shoulder Referrals Dermatology Referral L57.0 - Actinic keratosis
--- OUTSIDE RECORDS SUMMARY | 2025-04-10 21:30 | XMS_ITS | Encounter Summary ---
Author Organization [facility] Address [address] [place] [address] Phone Care Team Providers Care Autism Motor Specialist Name Role Phone Michael Chery MD Primary Care Provider [phone] Encounter Details Date Type Department Care Team (Latest Contact Info) Description 03/30/2018 Ancillary Orders [facility] [address], [address] [place] [address] Jacqueline Landis MD [address] [place] [address] [email or web address] Peripheral vascular disease; Other specified symptoms and [...] aorta documented in this encounter Care Teams Autism Motor Specialist Relationship Specialty Start Date End Date Michael Chery MD [address] [place] [phone] PCP - General Internal Medicine 04/09/18 documented as of this encounter Additional Source Comments The information contained in this document represents components of the legal health record. It is not the complete legal health record.[facility]
--- OUTSIDE RECORDS SUMMARY | 2025-04-10 21:30 | XMS_ITS | Clinical Summary ---
Author Organization [facility] Address [address] [place] [address] Phone Care Team Providers Care Gang Vibrator Operator Name Role Phone Michael Chery MD Primary Care Provider [phone] Allergies Active Allergy Reactions Criticality Noted Date [...] are stable. Will cont vorapaxar. Atherosclerosis of [place] ronary artery of [place] heart without angina pectoris 08/28/2017 Assessment & [...] 05/18/2013 ABDOMINAL AORTIC ANEURYSM (AAA) SCREENING 2021 INFLUENZA VACCINE (#1) 2025 3, 07/02/2006, 05/20/2005, Additional history exists COVID-19 VACCINE ( - 2023- season) 2025 Adult Td,Tdap Booster 04/01/2026 04/01/2016 RSV VACCINE [...] topic Medical Devices Not on file Insurance HMO POS HMO POS HMO POS HMO POS HMO POS HMO POS O POS HMO [facility] Care Teams Gang Vibrator Operator Relationship Specialty Start Date End Date Michael Chery MD [address] [place] [phone] PCP - General Internal Medicine 04/09/18 Additional Source Comments The information contained in this document represents components of the legal health record. It is not the complete legal health record.[facility]
== END 2025-04-10 17:06 | disposition home or self-care (01) ==
LOC: HO.HMCH 16:30
PROVIDERS: PCP Internal Medicine; Visit Provider Internal Medicine
DX: I12.9 Hypertensive chronic kidney disease with stage 1 through stage 4 chronic kidney disease, or unspecified chronic kidney disease (principal); N18.4 Chronic kidney disease, stage 4 (severe); I25.10 Atherosclerotic heart disease of native coronary artery without angina pectoris; I73.9 Peripheral vascular disease, unspecified; E78.00 Pure hypercholesterolemia, unspecified; L57.0 Actinic keratosis; M54.50 Low back pain, unspecified; M25.511 Pain in right shoulder

== ENCOUNTER → 2025-04-10 16:29 | Outpatient (BNVA) | payer MEDICARE, SELFPAY | PROVIDERS: PCP Internal Medicine; Visit Provider Internal Medicine | DX: I12.9 Hypertensive chronic kidney disease with stage 1 through stage 4 chronic kidney disease, or unspecified chronic kidney disease (principal); I25.10 Atherosclerotic heart disease of native coronary artery without angina pectoris; I73.9 Peripheral vascular disease, unspecified; E78.00 Pure hypercholesterolemia, unspecified; N18.4 Chronic kidney disease, stage 4 (severe); L57.0 Actinic keratosis; M54.50 Low back pain, unspecified; M25.511 Pain in right shoulder | CPT/HCPCS: 99212 ==

== ENCOUNTER 2025-04-11 06:26 | Outpatient (REF) | payer MEDICARE, SELFPAY ==
--- NOTE | ~2025-04-11 | XR_ITS ---
EXAMINATION: Lumbar spine and right shoulder. CLINICAL INDICATION: Right shoulder pain and lumbago. COMPARISON: None. TECHNIQUE: 3 views lumbar spine and 4 views right shoulder. FINDINGS: LUMBAR SPINE: There is mild levoscoliosis. Lumbar lordosis is normal. There is loss of L3-4, L4-5 and L5-S1 disc heights. The vertebral heights and alignment are preserved normal. There is no visible acute fracture, subluxation, lytic or sclerotic process. There are bilateral renal stents present. RIGHT SHOULDER: There is mild loss of glenohumeral and AC joint space with inferior acromial spurring. There is a small calcified density seen inferior to clavicle along the coracoclavicular ligament. No loose bodies visualized. Soft tissue vascular calcifications are present along the right axillary artery. XR/XR lumbar spine 2-3V IMPRESSION: Degenerative disc changes and L3-4, L4-5 and L5-S1 disc levels. No visible acute fracture or dislocation seen. Degenerative arthritis of the right shoulder. Small calcified density along the coracoclavicular ligament likely old injury or calcification. Electronically signed by: Stevan Simons MD 04/11/2025 08:06 AM EDT RP
--- NOTE | ~2025-04-11 | XR_ITS ---
EXAMINATION: Lumbar spine and right shoulder. CLINICAL INDICATION: Right shoulder pain and lumbago. COMPARISON: None. TECHNIQUE: 3 views lumbar spine and 4 views right shoulder. FINDINGS: LUMBAR SPINE: There is mild levoscoliosis. Lumbar lordosis is normal. There is loss of L3-4, L4-5 and L5-S1 disc heights. The vertebral heights and alignment are preserved normal. There is no visible acute fracture, subluxation, lytic or sclerotic process. There are bilateral renal stents present. RIGHT SHOULDER: There is mild loss of glenohumeral and AC joint space with inferior acromial spurring. There is a small calcified density seen inferior to clavicle along the coracoclavicular ligament. No loose bodies visualized. Soft tissue vascular calcifications are present along the right axillary artery. XR/XR shoulder RT min 2V IMPRESSION: Degenerative disc changes and L3-4, L4-5 and L5-S1 disc levels. No visible acute fracture or dislocation seen. Degenerative arthritis of the right shoulder. Small calcified density along the coracoclavicular ligament likely old injury or calcification. Electronically signed by: Stevan Simons MD 04/11/2025 08:06 AM EDT RP
--- OUTSIDE RECORDS SUMMARY | 2025-04-11 06:29 | XMS_ITS | Encounter Summary ---
Author Organization [facility] Address [address] [place] [address] Phone Care Team Providers Care Computer Science Professor Name Role Phone Michael Chery MD Primary Care Provider [phone] Encounter Details Date Type Department Care Team (Latest Contact Info) Description 03/30/2018 Ancillary Orders [facility] [address], [address] [place] [address] Jacqueline Landis MD [address] [place] [address] [email or web address] Peripheral vascular disease; Other specified symptoms and [...] aorta documented in this encounter Care Teams Computer Science Professor Relationship Specialty Start Date End Date Michael Chery MD [address] [place] [phone] PCP - General Internal Medicine 04/09/18 documented as of this encounter Additional Source Comments The information contained in this document represents components of the legal health record. It is not the complete legal health record.[facility]
--- OUTSIDE RECORDS SUMMARY | 2025-04-11 06:29 | XMS_ITS | Clinical Summary ---
Author Organization [facility] Address [address] [place] [address] Phone Care Team Providers Care Shoe Repair Cobbler Name Role Phone Michael Chery MD Primary Care Provider [phone] Allergies Active Allergy Reactions Criticality Noted Date [...] are stable. Will cont vorapaxar. Atherosclerosis of [place] ronary artery of [place] heart without angina pectoris 08/28/2017 Assessment & [...] POS HMO POS O POS [facility] Care Teams Shoe Repair Cobbler Relationship Specialty Start Date End Date Michael Chery MD [address] [place] [phone] PCP - General Internal Medicine 04/09/18 Additional Source Comments The information contained in this document represents components of the legal health record. It is not the complete legal health record.[facility]
[2025-04-11 06:51] LABS: MANUAL DIFF FLAG NO
[2025-04-11 08:08] LABS: Hematocrit 34.6 % (42.0-52.0); Hemoglobin 11.3 g/dl (14.0-18.0); Imm Gran Abs Auto 0.02 X10*3/uL (0.00-0.03); Imm Gran Pct Auto 0.3 % (0.0-0.4); Lymphocytes Absolute Auto 1.2 X10*3/uL (1.2-4.9); Mean Corpuscular HGB Conc 32.7 g/dl (31.0-36.0); Mean Corpuscular Hemoglobin 29.7 pg (27.0-33.0); Mean Corpuscular Volume 90.8 fL (80.0-98.0); NRBC Abs Auto 0.000 X10*3/uL (0.0-0.012); NRBC Pct Auto 0.0 /100WBC (0.0-0.2); Platelet Count 230 X10*3/uL (160-400); Red Blood Count 3.81 X10*6/uL (4.60-5.80); White Blood Count 6.4 X10*3/uL (4.8-10.8)
[2025-04-11 08:30] LABS: B Type Natriuretic Peptide 243 pg/mL (<100)
[2025-04-11 08:51] LABS: Alanine Aminotransferase 15 U/L (0-40); Albumin Level 4.2 g/dL (3.5-5.0); Alkaline Phosphatase 87 U/L (39-117); Anion Gap 15 (12-20); Aspartate Amino Transferase 22 U/L (5-37); Blood Urea Nitrogen 53 mg/dL (9-16); Calcium 9.0 mg/dL (8.4-10.2); Carbon Dioxide 19 mmol/L (22-29); Chloride 107 mmol/L (96-108); Cholesterol 108 mg/dL (<200); Estimated Glomerular Filt Rate 15; HDL Cholesterol 31 mg/dL (>40); Iron 95 mcg/dL (45-160); Percent Iron Saturation 38 % (15-50); Potassium 3.8 mmol/L (3.3-5.1); Sodium 137 mmol/L (135-145); Total Iron Binding Capacity 252 mcg/dL (228-428); Total Protein 6.9 g/dL (6.5-8.0); Triglycerides 115 mg/dL (<150); Unsaturated Iron Binding 157 ug/dL
[2025-04-11 08:52] LABS: Ferritin 39 ng/mL (20-250); Thyroid Stimulating Hormone 5.46 uIU/mL (0.32-4.0)
== END 2025-04-11 06:27 | disposition home or self-care (01) ==
LOC: HO.XRAY 06:26
PROVIDERS: PCP Internal Medicine; Visit Provider Internal Medicine
DX: M25.511 Pain in right shoulder (principal); M54.50 Low back pain, unspecified; I10 Essential (primary) hypertension; E78.00 Pure hypercholesterolemia, unspecified
CPT/HCPCS: 36415; 72100; 73030; 80053; 80061; 82728; 83540; 83880; 84443; 85025

== ENCOUNTER → 2025-04-11 06:52 | Outpatient (BNV) | payer MEDICARE, SELFPAY | PROVIDERS: PCP Internal Medicine; Visit Provider Radiology Diagnostic Radiology | DX: M51.360 Other intervertebral disc degeneration, lumbar region with discogenic back pain only (principal); M51.370 Other intervertebral disc degeneration, lumbosacral region with discogenic back pain only; M19.011 Primary osteoarthritis, right shoulder | CPT/HCPCS: 72100; 73030 ==

== ENCOUNTER 2025-04-14 08:55 | Outpatient (REF) | payer MEDICARE, SELFPAY ==
--- OUTSIDE RECORDS SUMMARY | 2025-04-14 09:39 | XMS_ITS | Encounter Summary ---
Author Organization [facility] Address [address] [place] [address] Phone Care Team Providers Care Drug And Alcohol Counselor Name Role Phone Michael Chery MD Primary Care Provider [phone] Encounter Details Date Type Department Care Team (Latest Contact Info) Description 03/30/2018 Ancillary Orders [facility] [address] [place] [address] Jacqueline Landis MD [address] [place] [address] [email or web address] Peripheral vascular disease; Other specified [...] aorta documented in this encounter Care Teams Drug And Alcohol Counselor Relationship Specialty Start Date End Date Michael Chery MD [address] [place] [phone] PCP - General Internal Medicine 04/09/18 documented as of this encounter Additional Source Comments The information contained in this document represents components of the legal health record. It is not the complete legal health record.[facility]
[2025-04-14 10:13] LABS: Blood Urea Nitrogen 50 mg/dL (9-16); Estimated Glomerular Filt Rate 15
[2025-04-14 10:34] LABS: Appearance Urine Clear; Glucose Urine UA Negative (Negative); PH 5.5 (5.0-9.0); Specific Gravity - Urine 1.010 (1.005-1.025); UMIC TRIGGER UACC YES
[2025-04-14 10:35] LABS: Prostate Specific Antigen 2.86 ng/mL (<0.05-4.0)
== END 2025-04-14 08:56 | disposition home or self-care (01) ==
LOC: HO.LAB 08:55
PROVIDERS: Absent Provider Internal Medicine Nephrology; PCP Internal Medicine; Referring Provider Internal Medicine; Visit Provider Urology
DX: C61 Malignant neoplasm of prostate (principal); I12.9 Hypertensive chronic kidney disease with stage 1 through stage 4 chronic kidney disease, or unspecified chronic kidney disease; N18.4 Chronic kidney disease, stage 4 (severe); Z12.5 Encounter for screening for malignant neoplasm of prostate
CPT/HCPCS: 36415; 81001; 82565; 84153; 84520

== ENCOUNTER 2025-04-19 15:33 | Outpatient (AMB) | payer MEDICARE, SELFPAY ==
--- NOTE | 2025-04-19 15:39 | A.OFFVIS_ITS ---
Intake Visit Reasons: 6m/PVR Intake Note: Pt presents to the office today for a medication 6 mo follow up. Urology meds: Terazosin , Blood Thinner Plavix , Aspirin PVR:656mL Labs done 04/14/25 PSA 2.86 Proposal Manager Writer Required: No Accompanied by: Self / Same As Patient Allergies Penicillins Adverse Reaction (Intermediate, Verified 04/19/25 15:44) rash HPI Comments Details: Zi is a pleasant male. He is a patient of Dr. Chery. He is seen for the following urologic conditions - prostate cancer - testicular cancer 1993 - XRT - lower urinary tract symptoms PSA remains well-controlled Significant incomplete bladder emptying PVR 600 cc today Creatinine high since early 2023 Prolaris 02/16 recommend active surveillance PSA - 11/18 1.5, 04/20 2.8 Discussed clean intermittent catheterization Would like to restart finasteride 4 month follow-up repeat PSA and review bladder emptying Second biopsy 01/1724 grade group 2, low volume disease Histologic type: Acinar adenocarcinoma [place] score: 3+3=6 (H & M), 3+4=7 (J) - 50%, 20%, 65% Grade group: 1 (H &M), 2 (J) Tumor quantitation: Number cores positive: 3 Total number of cores: 13 Periprostatic fat inv.: One focus suspicious for extraprostatic extension (Part J) Seminal vesicle inv.: Not identified Perineural inv.: Present LVI: Not identified MRI shows 20 g prostate, right posterolateral peripheral zone 1.1 cm PI-RADS 4, adjacent 6 mm PI-RADS 4 lesion Prostate cancer - low-grade, low volume diagnosis May 2020 PSA 06/16 3.3, 07/17 1.9, 01/16 3.8, 08/19 3.7, 07/19 1.9 Prostate cancer diagnosed by Dr. Bernal PSA at diagnosis 5.7 free 8% Volume 40 gm Histologic type: Adenocarcinoma, acinar Histologic grade: Mylene score: 3 + 3 = 6 Tumor quantitation: Number cores positive: 2 Right lateral - Total number of cores: 12 % of tissue involved: 1-2% of all tissue examined Low-grade, low volume disease Recommendation active surveillance with finasteride [facility] Medical History CKD stage 3b, GFR 30-44 ml/min Renal insufficiency History of stent insertion of renal artery CKD (chronic kidney disease) Subarachnoid hemorrhage Tubular adenoma COVID-19 vaccination refused History of testicular cancer Peripheral arterial disease Hypercholesterolemia Coronary artery disease Tobacco abuse COPD (chronic obstructive pulmonary disease) Hypertension Surgical History History of surgery Hx of colonoscopy Hx of prostate biopsy History of tonsillectomy History of testicular surgery Family History Father No problems noted. Mother No problems noted. Maternal Grandmother Myocardial infarction Brother In good health Sister In good health Son In good health Son In good health Daughter In good health Sister Diabetes Social History Household Members: Spouse, Significant Other and Family Household Members Other:: 6 Housing: House Are you a primary director of career resources to a significant other at home: No Do you presently have visiting nurse or other home services: No Alcohol intake: former Patient Tobacco Use Status: Former Tobacco user Tobacco use type: Cigarette Cigarette Packs Per Day: 0.5 Cigarettes Per Day: 2 Years Smoked: 53 years- 10/PER DAY stopped smoking 07/2024 e-Cigarette/Vaping Use: Never Used Second Hand Smoke Exposure: Yes service: No Current occupational status: employed Current occupational exposures/hazards: No Cognitive needs: No Hearing needs: No Vision needs: Yes Review of Systems Const Denies chills and Denies fever(s) Card Reports no additional complaints and Denies syncope Resp Denies cough GI Denies abdominal pain and Denies heartburn Reports as per HPI and Denies change in libido Neuro Denies syncope Psych Denies change in libido Endo Denies change in libido Physical Exam Const General: cooperative, healthy appearing, comfortable and no acute distress Orientation/consciousness: patient oriented x3 HEENT Face and sinus: Yes normal facial exam Mouth: moist mucous membranes Neck Neck: Yes normal visual inspection, Yes full ROM and Yes trachea midline Chest Chest palpation & inspection: normal inspection of the chest Resp Effort & Inspection: normal respiratory effort, able to speak in complete sentences and no respiratory distress GI Inspection: Yes normal to inspection Back/Spine/Pelvis Cervical Spine: normal cervical lordosis Thoracic/Lumbar Spine: thoracic and lumbar spine normal to inspection Skin General skin exam: no rashes or lesions noted Neuro General: patient oriented x3, gait normal, tone normal and moves all extremities Extrem General: Yes normal to inspection and Yes capillary refill normal Office Procedures Post Void Residual Post Residual Void Post Void Residual (PVR): [id number] Void Residual by ultrasound Assessment & Plan Assessment & Plan (1) Nocturia more than twice per night: Code(s): R35.1 - Nocturia Category: Medical (2) Prostate cancer: Comment: 12/2023 biopsy Code(s): C61 - Malignant neoplasm of prostate Category: Medical (3) Urinary retention with incomplete bladder emptying: Code(s): R33.9 - Retention of urine, unspecified Category: Medical Plan Four month follow-up repeat PSA Medications: Refilled finasteride 5 mg PO DAILY 90 tabs 1RF 90 days C61 - Malignant neoplasm of prostate, N40.1 - Benign prostatic hyperplasia with lower urinary tract symptoms, R33.9 - Retention of urine, unspecified Patient Instructions: This note is constructed using voice recognition software. While every effort has been made to ensure accuracy equipment application specialist errors may have been included. Imaging studies, laboratory and physical exam results were discussed and reviewed in detail. No major barriers to patient understanding were identified. An opportunity to ask questions regarding the treatment plan was provided. All questions were answered. The patient expressed understanding and agreement with the above treatment plan. The patient is aware they should contact our office by phone for worsening of their current condition or the appearance of new urologic symptoms. Compliance is encouraged with any medications and followup testing that is ordered. It is a privilege to participate in the urologic care of your patient. If you have any questions or concerns regarding treatment for the above conditions, or other urologic issues, please do not hesitate to contact me. The office telephone contact is [phone]. Sincerely, Dr Alberto Bernal MD, [facility] - Urology Compassionate Specialist Care for the Genitourinary System Coding Level of Care Code Est Pt Level 3 (84980) Complex EM visit Add On G2211 Diagnoses Nocturia more than twice per night R35.1 Prostate cancer C61 Urinary retention with incomplete bladder emptying R33.9 CPT Codes Post Residual Void - PVR CPT Code: 36062-Prka Void Residual by ultrasound ([id number])
--- OUTSIDE RECORDS SUMMARY | 2025-04-19 17:51 | XMS_ITS | Encounter Summary ---
Author Organization [facility] Address [address] [place] [address] Phone Care Team Providers Care Finishing Manager Name Role Phone Michael Chery MD Primary Care Provider Encounter Details Date Type Department Care Team (Latest Contact Info) Description 03/30/2018 Ancillary Orders [facility] [address], [address] [place] [address] Jacqueline Landis MD [phone] [place] [address] [email or web address] Peripheral vascular disease; Other specified symptoms and [...] aorta documented in this encounter Care Teams Finishing Manager Relationship Specialty Start Date End Date Michael Chery MD [address] [place] [id number] PCP - General Internal Medicine 04/09/18 documented as of this encounter Additional Source Comments The information contained in this document represents components of the legal health record. It is not the complete legal health record.[facility]
--- OUTSIDE RECORDS SUMMARY | 2025-04-19 17:51 | XMS_ITS | Clinical Summary ---
Author Organization [facility] Address [address] [place] [address] Phone Care Team Providers Care Waiter/Waitress Cabin Class Name Role Phone Michael Chery MD Primary Care Provider Allergies Active Allergy Reactions Criticality Noted Date [...] are stable. Will cont vorapaxar. Atherosclerosis of [place] co ronary artery of [place] heart without angina pectoris 08/28/2017 Assessment & [...] POS HMO POS O [facility] Care Teams Waiter/Waitress Cabin Class Relationship Specialty Start Date End Date Michael Chery MD [address] [place] [phone] PCP - General Internal Medicine 04/09/18 Additional Source Comments The information contained in this document represents components of the legal health record. It is not the complete legal health record.[facility]
== END 2025-04-19 16:37 | disposition home or self-care (01) ==
LOC: HO.HUSH 15:34
PROVIDERS: PCP Internal Medicine; Visit Provider Urology
DX: R35.1 Nocturia (principal); C61 Malignant neoplasm of prostate; R33.9 Retention of urine, unspecified
CPT/HCPCS: 99213; G2211

== ENCOUNTER → 2025-04-19 15:33 | Outpatient (BNVA) | payer MEDICARE, SELFPAY | PROVIDERS: PCP Internal Medicine; Visit Provider Urology | DX: R35.1 Nocturia (principal); C61 Malignant neoplasm of prostate; R33.9 Retention of urine, unspecified; Z79.82 Long term (current) use of aspirin; Z79.01 Long term (current) use of anticoagulants; Z87.891 Personal history of nicotine dependence | CPT/HCPCS: 51798; 99212 ==

== ENCOUNTER 2025-04-21 09:25 | Outpatient (AMB) | payer MEDICARE, SELFPAY ==
--- NOTE | 2025-04-21 09:35 | HO.NEPHOV_ITS ---
Vital Signs 04/21/25 09:36 Height 6 ft Weight 140 lb 2 oz BMI 19.0 BP 110/80 Blood Pressure Location Rt brachial Position Sitting Pulse 60 Pulse Source Pulse Oximeter Pulse Oximetry (%) 99 Oxygen Delivery Method Room Air Intake Visit Reasons: 1mon f/u No labs-LVM Harvester Operator Required: No Accompanied by: Self / Same As Patient Allergies Penicillins Adverse Reaction (Intermediate, Verified 04/21/25 09:36) rash HPI Comments Details: 70-year-old man with a history of hypertension and significant vascular disease who had a baseline creatinine about 1.0- 1.2 mg/dL in October of 2022. In June of 2023 creatinine went up to 1.6 with it going upto 1.9 in July and 2.63 in November 2023. He also had been on hydrochlorothiazide 50 mg at that time which was reduced to 25 mg due to hypokalemia.He has a history of testicular cancer and underwent radiation several years ago which he attributes to his vascular disease. He has H/O fem- fem bypass surgery by Dr. Veras. Apparently he had a coronary angiogram in [facility] which was reportedly normal.(I have not seen the results). He has a history of smoking for several years. He continues to smoke cigarettes despite peripheral vascular disease and dyslipidemia.He has no new rash. He was seen in ER for accelerated hypertension & at that time his serum creatinine bumped up to 3.19. Previously CT angiogram of the abdomen in 2021 showed bilateral atherosclerosis disease of renal arteries.He underwent angiography and B/L renal artery stenting. He had taken hydralazine but could not tolerate due to side effects. He recently was admitted for acute on chronic diastolic CHF complicated by acute hypoxic respiratory failure. Was treated with IV Bumex which was then complicated by acute kidney injury on CKD 4. Creatinine stabilized & is fairly stable now. For peripheral vascular disease he is continued on dual antiplatelet and statin. [facility] Medical History CKD stage 3b, GFR 30-44 ml/min Renal insufficiency History of stent insertion of renal artery CKD (chronic kidney disease) Subarachnoid hemorrhage Tubular adenoma COVID-19 vaccination refused History of testicular cancer Peripheral arterial disease Hypercholesterolemia Coronary artery disease Tobacco abuse COPD (chronic obstructive pulmonary disease) Hypertension Surgical History History of surgery Hx of colonoscopy Hx of prostate biopsy History of tonsillectomy History of testicular surgery Family History Father No problems noted. Mother No problems noted. Maternal Grandmother Myocardial infarction Brother In good health Sister In good health Son In good health Son In good health Daughter In good health Sister Diabetes Social History Household Members: Spouse, Significant Other and Family Household Members Other:: 6 Housing: House Are you a primary customer care consultant to a significant other at home: No Do you presently have visiting nurse or other home services: No Alcohol intake: former Patient Tobacco Use Status: Former Tobacco user Tobacco use type: Cigarette Cigarette Packs Per Day: 0.5 Cigarettes Per Day: 2 Years Smoked: 53 years- 10/PER DAY stopped smoking 07/2024 e-Cigarette/Vaping Use: Never Used Second Hand Smoke Exposure: Yes service: No Current occupational status: employed Current occupational exposures/hazards: No Cognitive needs: No Hearing needs: No Vision needs: Yes Review of Systems Const All systems reviewed & are unremarkable except as noted in HPI and below Physical Exam Vital Signs: Last Vital Signs Pulse 60 04/21/25 09:36 BP 110/80 04/21/25 09:36 Pulse Ox 99 04/21/25 09:36 Oxygen Delivery Method Room Air 04/21/25 09:36 BMI result Body Mass Index 19.0 Const General: comfortable and no acute distress Orientation/consciousness: patient oriented x3 HEENT Head: Yes normocephalic Mouth: Normal oral and palatal mucosa present Eyes EOM: EOMs intact bilaterally Neck Neck: Yes supple Resp Auscultation: clear to auscultation bilaterally Cardio Jugular venous distension: no JVD Rate: regular rate GI Palpation (GI): Soft to palpation Auscultation: normal bowel sounds General: Yes no CVA tenderness Back/Spine/Pelvis Back: no CVA tenderness Skin General skin exam: no rashes or lesions noted Neuro General: patient oriented x3 and moves all extremities Extrem General: Yes no pedal edema Results Reviewed Nephrology Results: Hgb, (14.0-18.0) 11.3 g/dl L 04/11/25 WBC, (4.8-10.8) 6.4 X10*3/uL 04/11/25 Plt Count, (160-400) 230 X10*3/uL 04/11/25 Sodium, (135-145) 137 mmol/L 04/11/25 Potassium, (3.3-5.1) 3.8 mmol/L 04/11/25 Chloride, (96-108) 107 mmol/L 04/11/25 Carbon Dioxide, (22-29) 19 mmol/L L 04/11/25 BUN, (9-16) 50 mg/dL H 04/14/25 Creatinine, (0.5-1.4) 3.90 mg/dL H 04/14/25 Calcium, (8.4-10.2) 9.0 mg/dL 04/11/25 Phosphorus, (2.7-4.5) 3.5 mg/dL 03/16/25 PTH Intact, (8.7-77.1) 155.4 pg/mL H 03/16/25 Urine Protein, (Neg-Trace) 30 (1+) mg/dL H 04/14/25 Renal US 09/05/24 Assessment & Plan Assessment & Plan (1) Hypertension: Code(s): I10 - Essential (primary) hypertension Category: Medical Qualifiers: Hypertension type: essential hypertension Qualified Code(s): I10 - Essential (primary) hypertension (2) History of stent insertion of renal artery: Code(s): Z98.890 - Other specified postprocedural states Category: Medical (3) CKD (chronic kidney disease) stage 4, GFR 15-29 ml/min: Code(s): N18.4 - Chronic kidney disease, stage 4 (severe) Category: Medical Plan 70-year-old man with a history of longstanding hypertension dyslipidemia and peripheral vascular disease in the setting of chronic smoking currently has progressive chronic kidney disease, likely from ischemic nephropathy. He is S/P B/L renal artery stenting. His BP has been labile and medications have been adjusted with improvement. . He avoids NSAID's. He could continue rest of current medications for now. During his previous visits, I had discussed about declining renal function and need for renal replacement in the future. Follow up given Orders: Orders Creatinine 2 Months I10 - Essential (primary) hypertension, N18.4 - Chronic kidney disease, stage 4 (severe), Z98.890 - Other specified postprocedural states Blood Urea Nitrogen 2 Months I10 - Essential (primary) hypertension, N18.4 - Chronic kidney disease, stage 4 (severe), Z98.890 - Other specified postprocedural states Electrolytes 2 Months I10 - Essential (primary) hypertension, N18.4 - Chronic kidney disease, stage 4 (severe), Z98.890 - Other specified postprocedural states Medications: Refilled terazosin 5 mg PO BEDTIME 90 caps 1RF 90 days N40.1 - Benign prostatic hyperplasia with lower urinary tract symptoms, R35.0 - Frequency of micturition, R35.1 - Nocturia spironolactone 75 mg (1.5 x 50 mg) PO DAILY 135 tabs 3RF 90 days I10 - Essential (primary) hypertension Coding Level of Care Code Est Pt Level 4 (20249) Diagnoses Essential hypertension I10 Hypertension type: essential hypertension History of stent insertion of renal artery Z98.890 CKD (chronic kidney disease) stage 4, GFR 15-29 ml/min N18.4
[2025-04-21 09:36] VITALS: BP 110/80; PULSE 60; O2SAT 99; BMI 19.0
--- OUTSIDE RECORDS SUMMARY | 2025-04-21 10:16 | XMS_ITS | Clinical Summary ---
Author Organization [facility] Address [address] [place] [address] Phone Care Team Providers Care Mobile Electronics Installer Name Role Phone Michael Chery MD Primary Care Provider [phone] Allergies Active Allergy Reactions Criticality Noted Date [...] have followed him. A year ago his LAURAENO was 0.5 on the right - he [...] are stable. Will cont vorapaxar. Atherosclerosis of [place] co ronary artery of [place] heart without angina pectoris 08/28/2017 Assessment & [...] POS HMO POS O [facility] Care Teams Mobile Electronics Installer Relationship Specialty Start Date End Date Michael Chery MD [address] [place] [phone] PCP - General Internal Medicine 04/09/18 Additional Source Comments The information contained in this document represents components of the legal health record. It is not the complete legal health record.[facility]
--- OUTSIDE RECORDS SUMMARY | 2025-04-21 10:16 | XMS_ITS | Encounter Summary ---
Author Organization [facility] Address [address] [place] [address] Phone Care Team Providers Care Secondary Spanish Teacher Name Role Phone Michael Chery MD Primary Care Provider [phone] Encounter Details Date Type Department Care Team (Latest Contact Info) Description 03/30/2018 Ancillary Orders [facility] [address] [place] [address] Jacqueline Landis MD [phone] [place] [address] [email or web address] Peripheral vascular disease; Other specified [...] aorta documented in this encounter Care Teams Secondary Spanish Teacher Relationship Specialty Start Date End Date Michael Chery MD [address] [place] [phone] PCP - General Internal Medicine 04/09/18 documented as of this encounter Additional Source Comments The information contained in this document represents components of the legal health record. It is not the complete legal health record.[facility]
== END 2025-04-21 10:06 | disposition home or self-care (01) ==
LOC: HO.HKA 09:25
PROVIDERS: PCP Internal Medicine; Visit Provider Internal Medicine Nephrology
DX: I12.9 Hypertensive chronic kidney disease with stage 1 through stage 4 chronic kidney disease, or unspecified chronic kidney disease (principal); Z98.890 Other specified postprocedural states; N18.4 Chronic kidney disease, stage 4 (severe)
CPT/HCPCS: 99214

== ENCOUNTER → 2025-04-21 09:25 | Outpatient (BNVA) | payer MEDICARE, SELFPAY | PROVIDERS: PCP Internal Medicine; Visit Provider Internal Medicine Nephrology | DX: I10 Essential (primary) hypertension (principal); N18.4 Chronic kidney disease, stage 4 (severe); N40.1 Benign prostatic hyperplasia with lower urinary tract symptoms; R35.0 Frequency of micturition; R35.1 Nocturia | CPT/HCPCS: 99212 ==

== ENCOUNTER → 2025-04-27 08:06 | Outpatient (REF) | payer MEDICARE, SELFPAY ==
--- NOTE | ~2025-04-27 | NM_ITS ---
Lexiscan Myocardial perfusion study Indication: PVC Technique: The patient was brought in for a Lexiscan perfusion study on 04/27/2025 and was injected 0.4 mg of Lexiscan intravenously. Within a minute of this injection 25 mCi of sestamibi was given intravenously. Images were obtained using the SPECT gamma camera interlaced with the gating device. Images were obtained in supine position. Resting perfusion study was performed on 04/28/2025. Patient was administered 25 mCi of sestamibi intravenously at rest. Images were then obtained in supine position. Total DLP 74 mGy-cm. Images were processed with the software and compared side to side in short axis, horizontal long axis and vertical long axis views. Findings: Raw aquisition reviewed. The stress perfusion study showed no significant perfusion abnormality. Both uncorrected as well as CT attenuation corrected images were reviewed. The gated study shows normal LV systolic function with calculated LVEF of 64%. LV cavity is normal in size. The gated study shows normal wall thickening and contraction of segments. Resting study shows no significant perfusion abnormality. Gating at rest reveals normal wall motion with ejection fraction at 64%. The findings are consistent with no clear reversible or fixed perfusion abnormality. NM/NM cardiolite stress test Impression: 1. Myocardial perfusion imaging study shows normal myocardial perfusion. 2. Gated LVEF is 64% during stress and rest. 3. Transient ischemic dilatation not present. EKG component of the test reported separately. Electronically signed by: Gregorio Lovelace MD 04/30/2025 01:12 PM EDT
--- NOTE | 2025-04-27 08:09 | CA_ITS ---
Acquisition Time: 2025-04-27 08:37:34 Total Exercise Time: 00:02:00 Test Indications: PVC'S Medications: SEE H&P Protocol: LEXISCAN Max HR: 115 BPM 76% of Pred: 151 BPM Max BP: 154/76 mmHG Max Work Load: 1.0 METS Pharmacological stress test with Lexiscan injection while sitting and moving his legs, without anginal symptoms, with isolated PVC, with normotensive response to injection, with borderline EKG changes inferolateral leads in recovery, nondiagnostic for ischemia. Nuclear iamges pending., Test reviewed with Dr Lovelace. Referred By: Anju Colby Electronically Signed By: ANJU COLBY
== END ==
LOC: HO.CARD 08:06
PROVIDERS: PCP Internal Medicine; Visit Provider Nurse Practitioner Family
DX: I49.3 Ventricular premature depolarization (principal); I25.10 Atherosclerotic heart disease of native coronary artery without angina pectoris
CPT/HCPCS: 78452; 93017; A9500; J0280; J2785

== ENCOUNTER → 2025-04-27 08:09 | Outpatient (BNV) | payer MEDICARE, SELFPAY | PROVIDERS: PCP Internal Medicine; Visit Provider Nurse Practitioner Family | DX: I49.3 Ventricular premature depolarization (principal) | CPT/HCPCS: 93016; 93018 ==

== ENCOUNTER 2025-05-19 09:38 | Outpatient (AMB) | payer MEDICARE, SELFPAY ==
[2025-05-19 09:41] VITALS: BP 130/88; PULSE 83; TEMP 36.1; O2SAT 95; BMI 19.2
--- NOTE | 2025-05-19 09:41 | A.OFFPC_ITS ---
Vital Signs 05/19/25 09:41 Height 6 ft Weight 141 lb 8 oz BMI 19.2 BP 130/88 Blood Pressure Location Lt brachial Position Sitting Pulse 83 Pulse Source Pulse Oximeter Temp 97.0 F Temp Source Temporal Artery Scan Pulse Oximetry (%) 95 Oxygen Delivery Method Room Air Intake Visit Reasons: Hypertension Accompanied by: Spouse Allergies Penicillins Adverse Reaction (Intermediate, Verified 05/19/25 09:41) rash Tobacco use date assessed: 05/19/25 Fall risk assessment: No Falls in past year Last assessed Fall Risk: 05/19/25 Dental Screening Dental Screen Date: 05/19/25 Did you have a dental visit in the last 12 months?: Yes Did you have a dental problem in the last 6 months where you did not have access to dental care?: No Was dental information given to patient?: Patient has dentist [facility] Medical History CKD stage 3b, GFR 30-44 ml/min Renal insufficiency History of stent insertion of renal artery CKD (chronic kidney disease) Subarachnoid hemorrhage Tubular adenoma COVID-19 vaccination refused History of testicular cancer Peripheral arterial disease Hypercholesterolemia Coronary artery disease Tobacco abuse COPD (chronic obstructive pulmonary disease) Hypertension Surgical History History of surgery Hx of colonoscopy Hx of prostate biopsy History of tonsillectomy History of testicular surgery Family History (Updated 05/19/25 @ 09:56 by Anna Peace CMA) Father No problems noted. Mother No problems noted. Maternal Grandmother Myocardial infarction Brother Bone cancer Sister No problems noted. Son In good health Son In good health Daughter In good health Sister Diabetes Social History Household Members: Spouse, Significant Other and Family Household Members Other:: 6 Housing: House Are you a primary care advocate to a significant other at home: No Do you presently have visiting nurse or other home services: No Alcohol intake: former Patient Tobacco Use Status: Former Tobacco user Tobacco use type: Cigarette Cigarette Packs Per Day: 0.5 Cigarettes Per Day: 2 Years Smoked: 53 years- 10/PER DAY stopped smoking 07/2024 e-Cigarette/Vaping Use: Never Used Second Hand Smoke Exposure: Yes service: No Current occupational status: employed Current occupational exposures/hazards: No Cognitive needs: No Hearing needs: No Vision needs: Yes Questionnaire PHQ-9 Over the last 2 weeks, how often have you been bothered by any of the following problems? 1. Little interest or pleasure in doing things: not at all 2. Feeling down, depressed, or hopeless: not at all 3. Trouble falling or staying asleep, or sleeping too much: several days 4. Feeling tired or having little energy: several days 5. Poor appetite or overeating: several days 6. Feeling bad about yourself - or that you are a failure or have let yourself or your family down: more than half the days 7. Trouble concentrating on things, such as reading the newspaper or watching television: more than half the days 8. Moving or speaking so slowly that other people could have noticed. Or the opposite - being so fidgety or restless that you have been moving around a lot more than usual: not at all 9. Thoughts that you would be better off or of hurting yourself in some way: not at all Total score: 7 Source: Developed by Drs. Tad Angel, Jennie Nicole, Tello Mendoza and colleagues, with an educational noemi from [employer]. Thrive Questionnaire Date Thrive assessed: 01/03/25 I am a: Patient What is your living situation today?: I have a steady place to live Within the past 12 months, did the food you bought not last and you didn't have the money to get more?: Never true Within the past 12 months, did you worry whether your food would run out before you got money to buy more?: Sometimes True Do you have trouble paying for medicines?: No Do you have trouble getting transportation to medical appointments?: No Do you have trouble paying your heating and electricity bill?: I choose not to answer this question Do you have trouble taking care of your child, family member or friend?: No Do you have trouble with day-to-day activities such as bathing, preparing meals, shopping, managing finances, etc.?: No Are you currently unemployed and looking for a job?: No Are you interested in more education?: No Please select the resources that you would like help with: None Currently or been in a relationship where the following occur: I choose not to answer THRIVE Score: 1 AUDIT C Alcohol Use Questionnaire (AUDIT-C) 1. How often do you have a drink containing alcohol?: Never 3. How often do you have six or more drinks on one occasion?: Never Total Score: 0 BIANCA-7 AMB Questionnaire BIANCA-7 Date BIANCA - 7 assessed: 01/03/25 Feeling nervous, anxious, or on edge: 0 = Not at all Not being able to stop or control worryin = Not at all Worrying too much about different things: 0 = Not at all Trouble relaxin = Not at all Being so restless that it is hard to sit still: 0 = Not at all Becoming easily annoyed or irritable: 0 = Not at all Feeling afraid as if something awful might happen: 0 = Not at all Total BIANCA-7 score (0-4 normal; 5-9 mild; 10-14 moderate; 15-21 severe): 0 Source: Developed by Drs. Tad Angel, Jennie Nicole, Tello Mendoza and colleagues, with an educational noemi from [employer]. Physical exam (Primary Care) Vital Signs: Last Vital Signs Temp 97.0 F 05/19/25 09:41 Pulse 83 05/19/25 09:41 BP 130/88 05/19/25 09:41 Pulse Ox 95 05/19/25 09:41 Oxygen Delivery Method Room Air 05/19/25 09:41 BMI result Body Mass Index 19.2 Tobacco/Smoking Status: Tobacco use Status Tobacco use date assessed 05/19/25 05/19/25 09:42 Patient Tobacco Use Status Former Tobacco user 05/19/25 09:42 Tobacco use type Cigarette 05/19/25 09:42 e-Cigarette/Vaping Use Never Used 05/19/25 09:42 PHQ-9: PHQ-9 Score PHQ-9: Total score 7 05/19/25 10:38 Thrive Assessment: Date of Thrive Assessment Date Thrive assessed 01/03/25 05/19/25 09:42 Currently or been in a relationship where the following occur: I choose not to answer Const General: alert; No acute distress Eyes Conjunctivae: conjunctivae normal Resp Auscultation: clear to auscultation bilaterally Cardio Rate: regular rate Rhythm: regular rhythm GI Inspection: Yes normal to inspection Extrem General: Yes normal to inspection and No edema Office Procedures Flu Questionnaire Does the patient have a severe egg allergy?: No Does the patient have severe life threatening allergies?: No Does the patient have a fever or illness today?: No Has the patient ever had Guillain-[place] Syndrome?: No Has the patient ever had any past reaction to a flu shot?: No Immunizations Fluarix [id number] (PF) 45 mcg (15 mcg x 3)/0.5 mL IM syringe Performing Provider: Michael Chery MD Performing Location: [facility] Administered by: Anna Peace CMA on 05/19/25 10:39 Dose Route Admin Location Dispensed Lot Number Expiration Date [employer] Television Technician 0.5 mL IM Left Deltoid 0.5 mL [id number] 01/23/26 [id number] [employer] VIS Given Date VIS Provided VIS Publication Date 05/19/25 Single Vaccine 24 Eligibility Eligibility Date Funding Source Not VFC Eligible 05/19/25 Private pneumoc 20-lala conj-dip cr(PF) 0.5 mL IM syringe Performing Provider: Michael Chery MD Performing Location: [facility] Administered by: Anna Peace CMA on 05/19/25 10:39 Dose Route Admin Location Dispensed Lot Number Expiration Date [place] Television Technician 0.5 mL IM Left Deltoid 0.5 mL [id number] 04/26/26 [employer] Total Dispensed Waste 0.5 mL 0 % VIS Given Date VIS Provided VIS Publication Date 05/19/25 Single Vaccine 24 Eligibility Eligibility Date Funding Source Not VFC Eligible 05/19/25 Private Coding Level of Care Code Est Pt Level 4 (63598) Complex EM visit Add On G2211 Diagnoses Essential hypertension I10 Hypertension type: essential hypertension Coronary artery disease involving [place] coronary artery of [place] heart without angina pectoris I25.10 Associated angina: without angina Coronary Disease-Associated Artery/Lesion type: [place] artery [place] vs. transplanted heart: kiana heart Peripheral arterial disease I73.9 Hypercholesterolemia E78.00 CKD (chronic kidney disease) stage 4, GFR 15-29 ml/min N18.4 Anemia D64.9 Prostate cancer C61 Lumbar degenerative disc disease M51.36 Primary osteoarthritis, right shoulder M19.011 Panlobular emphysema J43.1 COPD type: emphysema Emphysema type: panlobular Tobacco abuse Z72.0 Assessment & Plan Assessment & Plan (1) Hypertension: Code(s): I10 - Essential (primary) hypertension Category: Medical Qualifiers: Hypertension type: essential hypertension Qualified Code(s): I10 - Essential (primary) hypertension Plan: Continue with blood pressure medication. Decrease salt intake and exercise patient taking diuretic bumetanide with clonidine 0.1 twice a day hydralazine 100 mg twice a day metoprolol 150 mg once a day spironolactone 75 mg once a day (2) Coronary artery disease: Comment: saw [facility] pre-femoral/femoral bypass surgery 2022-sees PCP Dr. Chery & Dr. Veras-vascular Code(s): I25.10 - Atherosclerotic heart disease of [place] coronary artery without angina pectoris Category: Medical Qualifiers: Associated angina: without angina Coronary Disease-Associated Artery/Lesion type: [place] artery [place] vs. transplanted heart: k[place] heart Qualified Code(s): I25.10 - Atherosclerotic heart disease of [place] coronary artery without angina pectoris Plan: Control the cholesterol, weight, blood pressure, continue with aspirin 81 mg once a day (3) Peripheral arterial disease: Comment: Right leg severe February 2019 status post femoral bypass Code(s): I73.9 - Peripheral vascular disease, unspecified Category: Medical Plan: Control the cholesterol, weight, blood pressure, on aspirin (4) Hypercholesterolemia: Code(s): E78.00 - Pure hypercholesterolemia, unspecified Category: Medical Plan: Avoid fried foods, chicken skin, eggs, butter margarine, pastries and meat. Be it pork or beef they have a lot of cholesterol LDL goal of less than 70 and triglyceride of less than 150 on atorvastatin 80 mg once a day (5) CKD (chronic kidney disease) stage 4, GFR 15-29 ml/min: Code(s): N18.4 - Chronic kidney disease, stage 4 (severe) Category: Medical Plan: Patient is being followed up by Nephrology and did discuss about renal replacement (6) Anemia: Code(s): D64.9 - Anemia, unspecified Category: Medical Plan: Continuing to monitor (7) Prostate cancer: Comment: 12/2023 biopsy Code(s): C61 - Malignant neoplasm of prostate Category: Medical Plan: Patient follows up with urology placed on finasteride (8) Lumbar degenerative disc disease: Code(s): M51.36 - Other intervertebral disc degeneration, lumbar region Category: Medical Plan: Continue to be active avoid lifting heavy (9) Primary osteoarthritis, right shoulder: Code(s): M19.011 - Primary osteoarthritis, right shoulder Category: Medical Plan: Continue to be active (10) COPD (chronic obstructive pulmonary disease): Code(s): J44.9 - Chronic obstructive pulmonary disease, unspecified Category: Medical Qualifiers: COPD type: emphysema Emphysema type: panlobular Qualified Code(s): J43.1 - Panlobular emphysema Plan: Patient is strongly advised to stop smoking! (11) Tobacco abuse: Comment: July 2024 stopped Code(s): Z72.0 - Tobacco use Category: Medical Plan: Patient is strongly advised to stop smoking! Plan History of Present Illness The patient is a 70-year-old male presenting for a follow-up visit. The patient has a history of hypertension, managed with clonidine, hydralazine, metoprolol, and spironolactone. He also has coronary artery disease and is on aspirin therapy. The patient has chronic obstructive pulmonary disease (COPD) and continues to smoke, which worsens his condition. He has been advised to stop smoking to improve his respiratory health. The patient has a history of prostate cancer treated with radiation in 1993, currently experiencing incomplete bladder emptying with a post-void residual of 600 cc. He is on terazosin and finasteride and performs intermittent catheterization. He has chronic kidney disease stage 4 due to ischemic nephropathy, with a history of renal artery stenting. The patient is followed by nephrology and has discussed renal replacement therapy. The patient has lumbar degenerative disc disease and right shoulder degenerative arthritis, confirmed by imaging. He is advised to remain active but avoid heavy lifting. Recent blood work in March 2025 showed anemia with hemoglobin of 11.3 g/dL and hematocrit of 34.6%. Electrolytes were normal, but BUN was elevated at 53 mg/dL and creatinine at 3.90 mg/dL. Health Maintenance - Advised to stop smoking to improve respiratory health - Advised to remain active but avoid heavy lifting for musculoskeletal health Social History - Smoking: Patient is a smoker and has been advised to quit. Review of Systems Physical Exam Results - Cardiovascular: Cardiolite stress test showing normal myocardial perfusion, EF 64% - Renal: BUN 53 mg/dL, creatinine 3.90 mg/dL - Hematology: Anemia with hemoglobin 11.3 g/dL, hematocrit 34.6% - Lipid Profile: LDL 54 mg/dL - Thyroid: Mildly elevated thyroid levels Plan Patient was informed and verbally consented to the use of an ambient scribe for clinic note documentation during this visit. 1. Hypertension The patient is on a regimen of clonidine, hydralazine, metoprolol, and spironolactone to manage hypertension. 2. Chronic Obstructive Pulmonary Disease (Copd) The patient is advised to stop smoking to improve COPD management. 3. Coronary Artery Disease The patient is on aspirin therapy for coronary artery disease management. 4. Prostate Cancer The patient is on terazosin and finasteride for prostate cancer management and performs intermittent catheterization. 5. Chronic Kidney Disease Stage 4 The patient is followed by nephrology and discussions about renal replacement therapy have occurred. 6. Lumbar Degenerative Disc Disease The patient is advised to remain active but avoid heavy lifting to manage lumbar degenerative disc disease. 7. Anemia Recent blood work showed anemia with hemoglobin of 11.3 g/dL and hematocrit of 34.6%. Discussion Notes Patient Instructions - Continue taking prescribed medications as directed. - Stop smoking to improve lung health. - Remain active but avoid heavy lifting. Orders: Orders Influenza [id number] Immunization Today Z23 - Encounter for immunization Complete Blood Count Auto Diff 3 Months I10 - Essential (primary) hypertension Comprehensive Met. Panel 3 Months I10 - Essential (primary) hypertension Reticulocyte Count 3 Months I10 - Essential (primary) hypertension Pneumococcal 20 Immunization Today Z23 - Encounter for immunization Ferritin 3 Months I10 - Essential (primary) hypertension IRON PROFILE 3 Months I10 - Essential (primary) hypertension Vitamin B12 and Folate 3 Months I10 - Essential (primary) hypertension Free T4 (Free Thyroxine) 3 Months I10 - Essential (primary) hypertension Thyroid Stimulating Hormone 3 Months I10 - Essential (primary) hypertension
--- OUTSIDE RECORDS SUMMARY | 2025-05-19 10:40 | XMS_ITS | Encounter Summary ---
Author Organization [facility] Address [address] [place] [address] Phone Care Team Providers Care Restaurant Maintenance Technician Name Role Phone Michael Chery MD Primary Care Provider [phone] Encounter Details Date Type Department Care Team (Latest Contact Info) Description 03/30/2018 Ancillary Orders [facility] [address] [place] [address] Jacqueline Landis MD [id number] [place] [address] [email or web address] Peripheral vascular disease; Other specified symptoms [...] aorta documented in this encounter Care Teams Restaurant Maintenance Technician Relationship Specialty Start Date End Date Michael Chery MD [address] [place] [phone] PCP - General Internal Medicine 04/09/18 documented as of this encounter Additional Source Comments The information contained in this document represents components of the legal health record. It is not the complete legal health record.[facility]
--- OUTSIDE RECORDS SUMMARY | 2025-05-19 10:40 | XMS_ITS | Clinical Summary ---
Author Organization [facility] Address [address] [place] [phone] Phone Care Team Providers Care Civil Engineer Land Development Name Role Phone Michael Chery MD Primary [...] are stable. Will cont vorapaxar. Atherosclerosis of [place] co ronary artery of [place] heart without angina pectoris 08/28/2017 Assessment & [...] Additional history exists COVID-19 VACCINE ( - 2024- season) 2025 Adult Td,Tdap Booster 04/01/2026 04/01/2016 [...] POS HMO POS O POS HMO POS RUSTO POS Care Teams Civil Engineer Land Development Relationship Specialty Start Date End Date Michael Chery MD [address] [place] [phone] PCP - General Internal Medicine 04/09/18 Additional Source Comments The information contained in this document represents components of the legal health record. It is not the complete legal health record.[facility]
== END 2025-05-19 10:41 | disposition home or self-care (01) ==
LOC: HO.HMCH 09:39
PROVIDERS: PCP Internal Medicine; Visit Provider Internal Medicine
DX: I12.9 Hypertensive chronic kidney disease with stage 1 through stage 4 chronic kidney disease, or unspecified chronic kidney disease (principal); N18.4 Chronic kidney disease, stage 4 (severe); C61 Malignant neoplasm of prostate; J43.1 Panlobular emphysema; I25.10 Atherosclerotic heart disease of native coronary artery without angina pectoris; I73.9 Peripheral vascular disease, unspecified; E78.00 Pure hypercholesterolemia, unspecified; D64.9 Anemia, unspecified; M51.369 Other intervertebral disc degeneration, lumbar region without mention of lumbar back pain or lower extremity pain; M19.011 Primary osteoarthritis, right shoulder; Z72.0 Tobacco use; Z23 Encounter for immunization

== ENCOUNTER → 2025-05-19 09:38 | Outpatient (BNVA) | payer MEDICARE, SELFPAY | PROVIDERS: PCP Internal Medicine; Visit Provider Internal Medicine | DX: I10 Essential (primary) hypertension (principal); I25.10 Atherosclerotic heart disease of native coronary artery without angina pectoris; I73.9 Peripheral vascular disease, unspecified; E78.00 Pure hypercholesterolemia, unspecified; D64.9 Anemia, unspecified; C61 Malignant neoplasm of prostate; M51.360 Other intervertebral disc degeneration, lumbar region with discogenic back pain only; M19.011 Primary osteoarthritis, right shoulder; J43.1 Panlobular emphysema; Z72.0 Tobacco use; Z13.31 Encounter for screening for depression; Z23 Encounter for immunization | CPT/HCPCS: 90471; 90656; 90677; 96127; 99212 ==

== ENCOUNTER 2025-05-30 07:05 | Outpatient (REF) | payer MEDICARE, SELFPAY ==
--- OUTSIDE RECORDS SUMMARY | 2025-05-30 07:09 | XMS_ITS | Encounter Summary ---
Author Organization [facility] Address [address] [place] [address] Phone Care Team Providers Care Escalator Operator Name Role Phone Michael Chery MD Primary Care Provider [phone] Encounter Details Date Type Department Care Team (Latest Contact Info) Description 03/30/2018 Ancillary Orders [facility] [address] [place] [address] Jacqueline Landis MD [id number] [place] [address] [email or web address] Peripheral vascular disease; Other specified [...] aorta documented in this encounter Care Teams Escalator Operator Relationship Specialty Start Date End Date Michael Chery MD [address] [place] [phone] PCP - General Internal Medicine 04/09/18 documented as of this encounter Additional Source Comments The information contained in this document represents components of the legal health record. It is not the complete legal health record.[facility]
--- OUTSIDE RECORDS SUMMARY | 2025-05-30 07:09 | XMS_ITS | Clinical Summary ---
Author Organization [facility] Address [address] [place] [phone] Phone Care Team Providers Care Director Of Pharmacy Name Role Phone Michael Chery MD Primary Care Provider [phone] Allergies Active Allergy Reactions Criticality Noted Date [...] are stable. Will cont vorapaxar. Atherosclerosis of [place] ronary artery of [place] heart without angina pectoris 08/28/2017 Assessment & [...] POS HMO POS O [facility] Care Teams Director Of Pharmacy Relationship Specialty Start Date End Date Michael Chery MD [address] [place] [phone] PCP - General Internal Medicine 04/09/18 Additional Source Comments The information contained in this document represents components of the legal health record. It is not the complete legal health record.[facility]
[2025-05-30 08:24] LABS: Anion Gap 12 (12-20); Blood Urea Nitrogen 54 mg/dL (9-16); Carbon Dioxide 19 mmol/L (22-29); Chloride 112 mmol/L (96-108); Estimated Glomerular Filt Rate 16; Potassium 4.5 mmol/L (3.3-5.1); Sodium 138 mmol/L (135-145)
== END 2025-05-30 07:06 | disposition home or self-care (01) ==
LOC: HO.LAB 07:05
PROVIDERS: PCP Internal Medicine; Visit Provider Internal Medicine Nephrology
DX: I12.9 Hypertensive chronic kidney disease with stage 1 through stage 4 chronic kidney disease, or unspecified chronic kidney disease (principal); N18.4 Chronic kidney disease, stage 4 (severe); Z98.890 Other specified postprocedural states
CPT/HCPCS: 36415; 80051; 82565; 84520

== ENCOUNTER 2025-06-02 14:15 | Outpatient (AMB) | payer MEDICARE, SELFPAY ==
[2025-06-02 14:23] VITALS: BP 150/70; PULSE 56; TEMP 36.3; O2SAT 99; BMI 19.5
--- NOTE | 2025-06-02 14:23 | MHC.PC.OV ---
Vital Signs 06/02/25 14:23 Height 6 ft Weight 144 lb BMI 19.5 BP 150/70 H Blood Pressure Location Lt brachial Position Sitting Pulse 56 Pulse Source Pulse Oximeter Temp 97.3 F Temp Source Temporal Artery Scan Pulse Oximetry (%) 99 Oxygen Delivery Method Room Air Intake Visit Reasons: CAD, CKD Accompanied by: Spouse Allergies Penicillins Adverse Reaction (Intermediate, Verified 06/02/25 14:24) rash Tobacco use date assessed: 05/19/25 Fall risk assessment: No Falls in past year Last assessed Fall Risk: 05/19/25 Dental Screening Dental Screen Date: 05/19/25 Did you have a dental visit in the last 12 months?: Yes Did you have a dental problem in the last 6 months where you did not have access to dental care?: No Was dental information given to patient?: Patient has dentist [facility] Medical History CKD stage 3b, GFR 30-44 ml/min Renal insufficiency History of stent insertion of renal artery CKD (chronic kidney disease) Subarachnoid hemorrhage Tubular adenoma COVID-19 vaccination refused History of testicular cancer Peripheral arterial disease Hypercholesterolemia Coronary artery disease Tobacco abuse COPD (chronic obstructive pulmonary disease) Hypertension Surgical History History of surgery Hx of colonoscopy Hx of prostate biopsy History of tonsillectomy History of testicular surgery Family History Father No problems noted. Mother No problems noted. Maternal Grandmother Myocardial infarction Brother Bone cancer Sister No problems noted. Son In good health Son In good health Daughter In good health Sister Diabetes Social History Household Members: Spouse, Significant Other and Family Household Members Other:: 6 Housing: House Are you a primary urgent care to a significant other at home: No Do you presently have visiting nurse or other home services: No Alcohol intake: former Patient Tobacco Use Status: Former Tobacco user Tobacco use type: Cigarette Cigarette Packs Per Day: 0.5 Cigarettes Per Day: 2 Years Smoked: 53 years- 10/PER DAY stopped smoking 07/2024 e-Cigarette/Vaping Use: Never Used Second Hand Smoke Exposure: Yes service: No Current occupational status: employed Current occupational exposures/hazards: No Cognitive needs: No Hearing needs: No Vision needs: Yes Questionnaire PHQ-9 Over the last 2 weeks, how often have you been bothered by any of the following problems? 1. Little interest or pleasure in doing things: not at all 2. Feeling down, depressed, or hopeless: not at all 3. Trouble falling or staying asleep, or sleeping too much: several days 4. Feeling tired or having little energy: several days 5. Poor appetite or overeating: several days 6. Feeling bad about yourself - or that you are a failure or have let yourself or your family down: more than half the days 7. Trouble concentrating on things, such as reading the newspaper or watching television: more than half the days 8. Moving or speaking so slowly that other people could have noticed. Or the opposite - being so fidgety or restless that you have been moving around a lot more than usual: not at all 9. Thoughts that you would be better off or of hurting yourself in some way: not at all Total score: 7 Source: Developed by Drs. Tad Angel, Jennie Nicole, Tello Mendoza and colleagues, with an educational noemi from [employer]. Thrive Questionnaire Date Thrive assessed: 01/03/25 I am a: Patient What is your living situation today?: I have a steady place to live Within the past 12 months, did the food you bought not last and you didn't have the money to get more?: Never true Within the past 12 months, did you worry whether your food would run out before you got money to buy more?: Sometimes True Do you have trouble paying for medicines?: No Do you have trouble getting transportation to medical appointments?: No Do you have trouble paying your heating and electricity bill?: I choose not to answer this question Do you have trouble taking care of your child, family member or friend?: No Do you have trouble with day-to-day activities such as bathing, preparing meals, shopping, managing finances, etc.?: No Are you currently unemployed and looking for a job?: No Are you interested in more education?: No Please select the resources that you would like help with: None Currently or been in a relationship where the following occur: I choose not to answer THRIVE Score: 1 AUDIT C Alcohol Use Questionnaire (AUDIT-C) 1. How often do you have a drink containing alcohol?: Never 3. How often do you have six or more drinks on one occasion?: Never Total Score: 0 BIANCA-7 AMB Questionnaire BIANCA-7 Date BIANCA - 7 assessed: 01/03/25 Feeling nervous, anxious, or on edge: 0 = Not at all Not being able to stop or control worryin = Not at all Worrying too much about different things: 0 = Not at all Trouble relaxin = Several days Becoming easily annoyed or irritable: 1 = Several days Feeling afraid as if something awful might happen: 1 = Several days Source: Developed by Drs. Tad Angel, Jennie Nicole, Tello Mendoza and colleagues, with an educational noemi from [employer]. Physical exam (Primary Care) Vital Signs: Last Vital Signs Temp 97.3 F 06/02/25 14:23 Pulse 56 06/02/25 14:23 BP 150/70 H 06/02/25 14:23 Pulse Ox 99 06/02/25 14:23 Oxygen Delivery Method Room Air 06/02/25 14:23 BMI result Body Mass Index 19.5 Tobacco/Smoking Status: Tobacco use Status Tobacco use date assessed 05/19/25 06/02/25 14:26 Patient Tobacco Use Status Former Tobacco user 06/02/25 14:26 Tobacco use type Cigarette 06/02/25 14:26 e-Cigarette/Vaping Use Never Used 06/02/25 14:26 PHQ-9: PHQ-9 Score PHQ-9: Total score 7 06/02/25 15:15 Thrive Assessment: Date of Thrive Assessment Date Thrive assessed 01/03/25 06/02/25 14:26 Currently or been in a relationship where the following occur: I choose not to answer Const General: alert; No acute distress Eyes Conjunctivae: conjunctivae normal Resp Auscultation: clear to auscultation bilaterally Cardio Rate: regular rate Rhythm: regular rhythm GI Inspection: Yes normal to inspection Extrem General: Yes normal to inspection and No edema Coding Level of Care Code Est Pt Level 4 (07993) Complex EM visit Add On G2211 Diagnoses Essential hypertension I10 Hypertension type: essential hypertension Coronary artery disease involving [place] coronary artery of [place] heart without angina pectoris I25.10 Associated angina: without angina Coronary Disease-Associated Artery/Lesion type: [place] artery [place] vs. 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 Decrease salt intake and exercise patient's blood pressure is labile has the diuretic but together with finasteride hydralazine I am sorry on hydralazine 100 mg twice a day metoprolol 150 mg once a day spironolactone 75 mg once a day (2) Coronary artery disease: Comment: saw [facility] pre-femoral/femoral bypass surgery 2022-sees PCP Dr. Chery & Dr. Veras-vascular Code(s): I25.10 - Atherosclerotic heart disease of [place] coronary artery without angina pectoris Category: Medical Qualifiers: Associated angina: without angina Coronary Disease-Associated Artery/Lesion type: [place] artery [place] vs. transplanted heart: [place] heart Qualified Code(s): I25.10 - Atherosclerotic heart disease of [place] coronary artery without angina pectoris Plan: Control the cholesterol, weight, blood pressure, patient on aspirin (3) Peripheral vascular disease: Comment: 03/24/2018 - diagnostic angiogram 11/03/2022 - femoral to femoral bypass Code(s): I73.9 - Peripheral vascular disease, unspecified Category: Medical Plan: Patient is on aspirin continue with monitoring (4) Hypercholesterolemia: Code(s): E78.00 - Pure hypercholesterolemia, unspecified Category: Medical Plan: Avoid fried foods, chicken skin, eggs, butter margarine, pastries and meat. Be it pork or beef they have a lot of cholesterol LDL goal of less than 70 and triglyceride of less than 150 on atorvastatin 80 mg once a day (5) CKD (chronic kidney disease) stage 4, GFR 15-29 ml/min: Code(s): N18.4 - Chronic kidney disease, stage 4 (severe) Category: Medical Plan: Patient is being followed up by Nephrology and discussion on renal replacement (6) Prostate cancer: Comment: 12/2023 biopsy Code(s): C61 - Malignant neoplasm of prostate Category: Medical Plan: Continue to follow-up with urology surveillance (7) COPD (chronic obstructive pulmonary disease): Code(s): J44.9 - Chronic obstructive pulmonary disease, unspecified Category: Medical Qualifiers: COPD type: emphysema Emphysema type: panlobular Qualified Code(s): J43.1 - Panlobular emphysema Plan: Patient is not using any inhalers. (8) Tobacco abuse: Comment: July 2024 stopped Code(s): Z72.0 - Tobacco use Category: Medical Plan: Congratulations on stoppage Plan History of Present Illness The patient is a 70-year-old male presenting for follow-up and management of multiple chronic conditions. His medical history is significant for COPD, a history of smoking, hypertension, coronary artery disease, hypercholesterolemia, peripheral arterial disease status post femoro-femoral and lower extremity arterial bypass, chronic mesenteric ischemia, congestive heart failure, and urinary retention. He has a history of testicular cancer in 1993 and is under surveillance with urology; there is no history of prostate cancer. For his urologic issues, he takes finasteride and terazosin. The patient follows with nephrology for stage 4 chronic kidney disease, which is thought to be secondary to ischemic nephropathy from hypertension, hypercholesterolemia, peripheral vascular disease, and chronic smoking. He has a history of renal artery stent insertion. Blood work from April 11 showed anemia with a hemoglobin of 11.3 and hematocrit of 34.6, along with a BUN of 54 and creatinine of 3.82, while electrolytes were normal. A colonoscopy was performed in August 2023 with a recommendation for follow-up in 3 to 4 years. A cardiac stress test on April 27 showed normal myocardial perfusion and an ejection fraction of 64%. Health Maintenance - Colonoscopy performed in August 2023, with follow-up recommended in 3 to 4 years. - Follows with nephrology for chronic kidney disease, last seen in March. - Follows with urology and is under surveillance for a history of testicular cancer. - Cardiac stress test on April 27 showed normal myocardial perfusion and an EF of 64%. - The patient has stopped smoking. Social History - Substance Use: Patient has a history of chronic smoking but has recently quit. Review of Systems Physical Exam Results - Labs (April 11): Hemoglobin 11.3, Hematocrit 34.6, BUN 54, Creatinine 3.82. Sodium and potassium were good. - Procedures (August 2023): Colonoscopy was completed with a recommendation for follow-up in 3-4 years. - Cardiology (April 27): Cardiac stress test showed normal myocardial perfusion with an ejection fraction of 64%. Plan Patient was informed and verbally consented to the use of an ambient scribe for clinic note documentation during this visit. 1. Hypertension The patient's blood pressure is noted to be labile. The current management includes hydralazine 100 mg twice a day, metoprolol 150 mg once a day, and spironolactone 75 mg once a day. 2. Coronary Artery Disease The plan is to continue the patient on aspirin and continue monitoring. 3. Hypercholesterolemia The goals are an LDL of less than 70 and triglycerides of less than 150. The patient will continue atorvastatin 80 mg once a day. 4. Chronic Kidney Disease, Stage 4 The patient is being followed by nephrology, and discussions regarding renal replacement therapy are ongoing. 5. History Of Testicular Cancer Continue follow-up with urology under surveillance. 6. Chronic Obstructive Pulmonary Disease The patient is not currently using any inhalers. He was congratulated on smoking cessation. Discussion Notes I have reviewed the patient's complex medical history and multi-specialty care. His blood pressure is labile, and we will continue the current regimen of hydralazine, metoprolol, and spironolactone. We will continue aspirin for his coronary artery disease. For hypercholesterolemia, he will continue high-dose atorvastatin with a goal LDL less than 70. He is being followed by nephrology for his stage 4 CKD, and discussions about future renal replacement therapy are in progress. He will continue surveillance with urology for his history of testicular cancer. I noted he has stopped smoking and is not currently on any inhalers for his COPD, and I provided positive reinforcement for his smoking cessation. Patient Instructions - Continue to take your medications for blood pressure as prescribed, which include hydralazine, metoprolol, and spironolactone. - Continue taking your daily aspirin for your heart condition. - Continue taking atorvastatin 80 mg once a day for your cholesterol. - Make sure to keep your follow-up appointments with your kidney specialist (nephrology) to discuss your kidney health and treatment options. - Continue to see your urologist for regular check-ups as part of your cancer surveillance. - Congratulations on quitting smoking. It is very important for your health to continue to avoid tobacco. Orders: Orders US bladder Today R33.9 - Retention of urine, unspecified UA CC w/rflx Micro + Cult Today R30.0 - Dysuria, R33.9 - Retention of urine, unspecified PT Evaluation and Treatment Today M51.36 - Other intervertebral disc degeneration, lumbar region
--- OUTSIDE RECORDS SUMMARY | 2025-06-02 16:00 | XMS_ITS | Encounter Summary ---
Author Organization [facility] Address [address] [place] [address] Phone Care Team Providers Care Lead Pressman Name Role Phone Michael Chery MD Primary Care Provider [phone] Encounter Details Date Type Department Care Team (Latest Contact Info) Description 03/30/2018 Ancillary Orders [facility] [address] [place] [address] Jacqueline Landis MD [phone] [place] [address] [email or web address] Peripheral vascular disease; Other specified symptoms and [...] aorta documented in this encounter Care Teams Lead Pressman Relationship Specialty Start Date End Date Michael Chery MD [address] [place] [id number] PCP - General Internal Medicine 04/09/18 documented as of this encounter Additional Source Comments The information contained in this document represents components of the legal health record. It is not the complete legal health record.[facility]
--- OUTSIDE RECORDS SUMMARY | 2025-06-02 16:00 | XMS_ITS | Clinical Summary ---
Author Organization [facility] Address [address] [place] [phone] Phone Care Team Providers Care Donor Services Coordinator Name Role Phone Michael Chery MD Primary Care Provider [phone] Allergies Active Allergy Reactions Criticality Noted Date [...] are stable. Will cont vorapaxar. Atherosclerosis of [place] co ronary artery of [place] heart without angina pectoris 08/28/2017 Assessment & [...] POS HMO POS O POS [facility] Care Teams Donor Services Coordinator Relationship Specialty Start Date End Date Michael Chery MD [address] [place] [id number] PCP - General Internal Medicine 04/09/18 Additional Source Comments The information contained in this document represents components of the legal health record. It is not the complete legal health record.[facility]
== END 2025-06-02 15:18 | disposition home or self-care (01) ==
LOC: HO.HMCH 14:16
PROVIDERS: PCP Internal Medicine; Visit Provider Internal Medicine
DX: I12.9 Hypertensive chronic kidney disease with stage 1 through stage 4 chronic kidney disease, or unspecified chronic kidney disease (principal); N18.4 Chronic kidney disease, stage 4 (severe); C61 Malignant neoplasm of prostate; J43.1 Panlobular emphysema; I25.10 Atherosclerotic heart disease of native coronary artery without angina pectoris; I73.9 Peripheral vascular disease, unspecified; E78.00 Pure hypercholesterolemia, unspecified; Z72.0 Tobacco use

== ENCOUNTER → 2025-06-02 14:15 | Outpatient (BNVA) | payer MEDICARE, SELFPAY | PROVIDERS: PCP Internal Medicine; Visit Provider Internal Medicine | DX: I12.9 Hypertensive chronic kidney disease with stage 1 through stage 4 chronic kidney disease, or unspecified chronic kidney disease (principal); N18.4 Chronic kidney disease, stage 4 (severe); I25.10 Atherosclerotic heart disease of native coronary artery without angina pectoris; I73.9 Peripheral vascular disease, unspecified; E78.00 Pure hypercholesterolemia, unspecified; C61 Malignant neoplasm of prostate; J43.1 Panlobular emphysema; Z72.0 Tobacco use | CPT/HCPCS: 99212 ==

== ENCOUNTER 2025-06-15 08:15 | Outpatient (AMB) | payer MEDICARE, SELFPAY ==
[2025-06-15 08:29] VITALS: BP 130/68; PULSE 57; BMI 19.1
--- NOTE | 2025-06-15 08:29 | A.OFFVIS_ITS ---
Vital Signs 06/15/25 08:29 Height 6 ft Weight 141 lb 1.533 oz BMI 19.1 BP 130/68 Blood Pressure Location Lt brachial Position Sitting Pulse 57 Pulse Source Pulse Oximeter Intake Visit Reasons: 3m follow up Allergies Penicillins Adverse Reaction (Intermediate, Verified 06/02/25 14:24) rash HPI HPI 3m follow up: Details: Zi is a 69-year-old male with past medical history of hypertension, CKD, renal artery stents, LVH who recently underwent a Holter monitor showing frequent PVCs . A nuclear stress test was then completed and he now presents for follow-up. Today reports that he has been doing generally well since his last visit in February. He admits to being mostly sedentary. He does use a stationary bike for 10 minutes most days. He is not taking 1 of his afternoon medications as it made him feel nauseous. He is not sure which 1 it is. He tells me his metoprolol dose was cut back by Dr. Centeno. No chest discomfort at rest or with activity. No shortness of breath, PND, orthopnea or edema. No heart palpitations, lightheadedness, presyncope, syncope. Taking all meds as directed. He has follow-up next week with Nephrology. is present. [facility] Medical History CKD stage 3b, GFR 30-44 ml/min Renal insufficiency History of stent insertion of renal artery CKD (chronic kidney disease) Subarachnoid hemorrhage Tubular adenoma COVID-19 vaccination refused History of testicular cancer Peripheral arterial disease Hypercholesterolemia Coronary artery disease Tobacco abuse COPD (chronic obstructive pulmonary disease) Hypertension Surgical History History of surgery Hx of colonoscopy Hx of prostate biopsy History of tonsillectomy History of testicular surgery Family History Father No problems noted. Mother No problems noted. Maternal Grandmother Myocardial infarction Brother Bone cancer Sister No problems noted. Son In good health Son In good health Daughter In good health Sister Diabetes Social History Household Members: Spouse, Significant Other and Family Household Members Other:: 6 Housing: House Are you a primary child care supervisor to a significant other at home: No Do you presently have visiting nurse or other home services: No Alcohol intake: former Patient Tobacco Use Status: Former Tobacco user Tobacco use type: Cigarette Cigarette Packs Per Day: 0.5 Cigarettes Per Day: 2 Years Smoked: 53 years- 10/PER DAY stopped smoking 07/2024 e-Cigarette/Vaping Use: Never Used Second Hand Smoke Exposure: Yes service: No Current occupational status: employed Current occupational exposures/hazards: No Cognitive needs: No Hearing needs: No Vision needs: Yes Review of Systems Const All systems reviewed & are unremarkable except as noted in HPI and below Denies weakness ENT Denies dizziness Card Denies chest pain, Denies chest pain with activity, Denies syncope, Denies rapid heart rate, Denies pedal edema, Denies edema, Denies leg edema, Denies lightheadedness, Denies palpitations, Denies dyspnea, Reports dyspnea on exertion (With exertion) and Denies orthopnea Resp Denies cough, Denies dyspnea and Reports dyspnea on exertion (With exertion) GI Denies hematochezia and Denies change in stool character Musc Denies abnormal gait, Denies muscle cramps, Denies muscle weakness, Denies numbness, Denies radiating pain into limb and Denies tingling Neuro Denies abnormal gait, Denies dizziness, Denies syncope, Denies numbness, Denies tingling and Denies weakness Endo Denies palpitations Physical Exam Vital Signs: Last Vital Signs Pulse 57 06/15/25 08:29 BP 130/68 06/15/25 08:29 BMI result Body Mass Index 19.1 Const General: cooperative, healthy appearing, comfortable and no acute distress Orientation/consciousness: patient oriented x3 Neck Neck: Yes normal visual inspection Resp Effort & Inspection: normal respiratory effort Auscultation: clear to auscultation bilaterally, no crackles, no rales, no rhonchi and no wheezes Cardio Rate: regular rate Rhythm: regular rhythm Heart sounds: S1 normal heart sound present, S2 normal heart sound present, no gallops, no murmurs and no rubs Skin General skin exam: no rashes or lesions noted Neuro General: patient oriented x3 Extrem General: Yes normal to inspection, No no pedal edema and No calf tenderness Psych Appearance: grossly normal Mental Status: mental status grossly normal Speech and movement: Normal speech and movement present Office Procedures EKG Details: Today, read by me, normal sinus rhythm, left axis deviation, LVH with QRS widening, unchanged from prior, rate 65, QTC 432 milliseconds [id number], Complete Assessment & Plan Assessment & Plan (1) Frequent PVCs: Code(s): I49.3 - Ventricular premature depolarization Category: Medical Plan: Recent EKGs show frequent PVCs, asymptomatic. Echocardiogram 07/2024 had shown normal EF. Holter monitor done 12/27/2024 for 3 days shows sinus rhythm with average heart rate 70 beats per minute, PVCs 21% of time. His metoprolol dose was increased from 100 mg up to 150 mg daily at that time. He then had fatigue and Dr. Richter reduce his metoprolol back to 100 mg daily. Nuclear stress test done 04/27/2025 showed normal myocardial perfusion imaging. Pulse is regular on examination today. Will review with his primary manager med surg. (2) Hypertension: Code(s): I10 - Essential (primary) hypertension Category: Medical Qualifiers: Hypertension type: essential hypertension Qualified Code(s): I10 - Essential (primary) hypertension Plan: History of chronic hypertension, difficult to control with renal artery stenosis status post stents, following with Nephrology and on multiple medications. [place] blood pressure goal less than 130/80. Blood pressure recorded to be normal range today. He is not taking 1 of his meds but not sure which. We will call him after this visit to clarify. No medication changes made. Continue to follow with Nephrology. (3) Elevated brain natriuretic peptide (BNP) level: Code(s): R79.89 - Other specified abnormal findings of blood chemistry Category: Medical Plan: In 07/2024 had elevated BNP, up to 1183 with bilateral pleural effusions. His echocardiogram showed normal EF, mild LVH and impaired relaxation with moderately dilated RV. He is treated with blood pressure control and on Bumex 1 mg every other daily. On exam today he does not appear fluid overloaded. Signs and symptoms of heart failure reviewed with him. (4) Coronary artery disease: Comment: saw [facility] pre-femoral/femoral bypass surgery 2022-sees PCP Dr. Chery & Dr. Veras-vascular Code(s): I25.10 - Atherosclerotic heart disease of [place] coronary artery without angina pectoris Category: Medical Qualifiers: Associated angina: without angina Coronary Disease-Associated Artery/Lesion type: [place] artery [place] vs. transplanted heart: [place] heart Qualified Code(s): I25.10 - Atherosclerotic heart disease of [place] coronary artery without angina pectoris Plan: CT scan of the chest 07/2024, does show coronary calcifications. He has known peripheral vascular disease as well. No anginal symptoms at this time. Nuclear stress test recently completed was normal. He is on dual antiplatelet therapy for his PAD. Continue atorvastatin with ideal LDL goal less than 70. Continue metoprolol. Signs and symptoms of angina reviewed. (5) CKD (chronic kidney disease) stage 4, GFR 15-29 ml/min: Code(s): N18.4 - Chronic kidney disease, stage 4 (severe) Category: Medical Plan: Follows with Nephrology (6) History of stent insertion of renal artery: Code(s): Z98.890 - Other specified postprocedural states Category: Medical Plan: History of renal artery stents, Recent renal artery ultrasound showing no h emodynamically significant stenosis. Continue dual antiplatelet therapy. (7) Peripheral arterial disease: Comment: Right leg severe February 2019 status post femoral bypass Code(s): I73.9 - Peripheral vascular disease, unspecified Category: Medical Plan: No reports of claudication but does admit to being mostly sedentary. (8) Hypercholesterolemia: Code(s): E78.00 - Pure hypercholesterolemia, unspecified Category: Medical Plan: [place] LDL goal less than 70 in patient with CAD. Labs done 04/11/2025 showed LDL 54. Continue high-dose atorvastatin. Plan I informed the patient that the nuclear stress test was normal, indicating good blood flow through the cardiac arteries without significant blockages. We discussed the patient's history of frequent premature ventricular contractions (PVCs), which had a burden of 21% on a prior Holter monitor. I explained that these are early beats from the bottom of the heart and the reason for previously increasing the metoprolol dose. We will not make any medication changes today. I will have my medical coding instructor call the patient to determine which medication was stopped due to nausea. I advised the patient to avoid caffeine as it can exacerbate PVCs. I recommended a follow-up in 3-4 months, preceded by a Holter monitor to re-evaluate the PVC burden. Orders: Orders ECG 3 day holter monitor 3 Months I49.3 - Ventricular premature depolarization Patient Instructions: - Your recent heart stress test was normal, which is very good news. - Do not make any changes to your medications at this time. - Please expect a call from our medical coding instructor, Rosalba, who will ask you to identify which medication you stopped taking because it caused nausea. - Avoid drinks with caffeine, such as regular coffee and some sodas, as this can make your heart feel 'jumpy'. - We will arrange for you to wear a heart monitor (Holter monitor) again before your next appointment. - Please schedule a follow-up appointment in 3 to 4 months. Patient was informed and verbally consented to the use of an ambient scribe for clinic note documentation during this visit. Visit time spent on chart review, interview, assessment, orders, documentation. Coding Level of Care Code Est Pt Level 4 (16058) Diagnoses Frequent PVCs I49.3 Essential hypertension I10 Hypertension type: essential hypertension Elevated brain natriuretic peptide (BNP) level R79.89 Coronary artery disease involving [place] coronary artery of [place] heart without angina pectoris I25.10 Associated angina: without angina Coronary Disease-Associated Artery/Lesion type: [place] artery [place] vs. transplanted heart: [place] heart CKD (chronic kidney disease) stage 4, GFR 15-29 ml/min N18.4 History of stent insertion of renal artery Z98.890 Peripheral arterial disease I73.9 Hypercholesterolemia E78.00 CPT Codes EKG - CPT: [id number], Complete ([id number]) Time Spent (min) 28
== END 2025-06-15 09:01 | disposition home or self-care (01) ==
LOC: HO.HCS 08:16
PROVIDERS: PCP Internal Medicine; Visit Provider Nurse Practitioner Family
DX: I49.3 Ventricular premature depolarization (principal); I12.9 Hypertensive chronic kidney disease with stage 1 through stage 4 chronic kidney disease, or unspecified chronic kidney disease; R79.89 Other specified abnormal findings of blood chemistry; I25.10 Atherosclerotic heart disease of native coronary artery without angina pectoris; N18.4 Chronic kidney disease, stage 4 (severe); Z98.890 Other specified postprocedural states; I73.9 Peripheral vascular disease, unspecified; E78.00 Pure hypercholesterolemia, unspecified
CPT/HCPCS: 93010; 99214

== ENCOUNTER → 2025-06-15 08:15 | Outpatient (BNVA) | payer MEDICARE, SELFPAY | PROVIDERS: PCP Internal Medicine; Visit Provider Nurse Practitioner Family | DX: I49.3 Ventricular premature depolarization (principal); Z87.891 Personal history of nicotine dependence; R79.89 Other specified abnormal findings of blood chemistry; I25.10 Atherosclerotic heart disease of native coronary artery without angina pectoris; I25.83 Coronary atherosclerosis due to lipid rich plaque; I13.10 Hypertensive heart and chronic kidney disease without heart failure, with stage 1 through stage 4 chronic kidney disease, or unspecified chronic kidney disease; N18.4 Chronic kidney disease, stage 4 (severe); Z98.890 Other specified postprocedural states; E78.00 Pure hypercholesterolemia, unspecified | CPT/HCPCS: 93005; 99212 ==

== ENCOUNTER 2025-06-30 13:39 | Outpatient (AMB) | payer MEDICARE, SELFPAY ==
--- NOTE | 2025-06-30 13:56 | HO.NEPHOV ---
Vital Signs 06/30/25 13:58 Height 6 ft Weight 152 lb BMI 20.6 BP 170/80 H Blood Pressure Location Rt brachial Position Sitting Intake Visit Reasons: 2 mon f/u w/labs-Conf Pyrometer Temperature Regulator Required: No Accompanied by: Spouse Allergies Penicillins Adverse Reaction (Intermediate, Verified 06/30/25 13:58) rash hydralazine Adverse Reaction (Mild, Verified 06/30/25 13:58) Diarrhea nifedipine Adverse Reaction (Mild, Verified 06/30/25 13:58) Nausea HPI Comments Details: 70-year-old man with a history of hypertension and significant vascular disease who had a baseline creatinine about 1.0- 1.2 mg/dL in October of 2022. In June of 2023 creatinine went up to 1.6 with it going upto 1.9 in July and 2.63 in November 2023. He also had been on hydrochlorothiazide 50 mg at that time which was reduced to 25 mg due to hypokalemia.He has a history of testicular cancer and underwent radiation several years ago which he attributes to his vascular disease. He has H/O fem- fem bypass surgery by Dr. Veras. Apparently he had a coronary angiogram in [facility] which was reportedly normal. He has a history of smoking for several years. He continues to smoke cigarettes despite peripheral vascular disease and dyslipidemia.He has no new rash. He was seen in ER for accelerated hypertension & at that time his serum creatinine bumped up to 3.19. Previously CT angiogram of the abdomen in 2021 showed bilateral atherosclerosis disease of renal arteries.He underwent angiography and B/L renal artery stenting. He had taken hydralazine but could not tolerate due to side effects. He recently was admitted for acute on chronic diastolic CHF complicated by acute hypoxic respiratory failure. Was treated with IV Bumex which was then complicated by acute kidney injury on CKD 4. Creatinine stabilized & is fairly stable now. For peripheral vascular disease he is continued on dual antiplatelet and statin. He has been having generalized itching and wants to try to cut back on BP medications to see whether his itching goes away [facility] Medical History CKD stage 3b, GFR 30-44 ml/min Renal insufficiency History of stent insertion of renal artery CKD (chronic kidney disease) Subarachnoid hemorrhage Tubular adenoma COVID-19 vaccination refused History of testicular cancer Peripheral arterial disease Hypercholesterolemia Coronary artery disease Tobacco abuse COPD (chronic obstructive pulmonary disease) Hypertension Surgical History History of surgery Hx of colonoscopy Hx of prostate biopsy History of tonsillectomy History of testicular surgery Family History Father No problems noted. Mother No problems noted. Maternal Grandmother Myocardial infarction Brother Bone cancer Sister No problems noted. Son In good health Son In good health Daughter In good health Sister Diabetes Social History Household Members: Spouse, Significant Other and Family Household Members Other:: 6 Housing: House Are you a primary vocational childcare teacher to a significant other at home: No Do you presently have visiting nurse or other home services: No Alcohol intake: former Patient Tobacco Use Status: Former Tobacco user Tobacco use type: Cigarette Cigarette Packs Per Day: 0.5 Cigarettes Per Day: 2 Years Smoked: 53 years- 10/PER DAY stopped smoking 07/2024 e-Cigarette/Vaping Use: Never Used Second Hand Smoke Exposure: Yes service: No Current occupational status: employed Current occupational exposures/hazards: No Cognitive needs: No Hearing needs: No Vision needs: Yes Review of Systems Const All systems reviewed & are unremarkable except as noted in HPI and below Physical Exam Vital Signs: Last Vital Signs BP 170/80 H 06/30/25 13:58 BMI result Body Mass Index 20.6 Const General: comfortable and no acute distress Orientation/consciousness: patient oriented x3 HEENT Head: Yes normocephalic Mouth: Normal oral and palatal mucosa present Eyes EOM: EOMs intact bilaterally Neck Neck: Yes supple Resp Auscultation: clear to auscultation bilaterally Cardio Jugular venous distension: no JVD Rate: regular rate GI Palpation (GI): Soft to palpation Auscultation: normal bowel sounds General: Yes no CVA tenderness Back/Spine/Pelvis Back: no CVA tenderness Skin General skin exam: no rashes or lesions noted Neuro General: patient oriented x3 and moves all extremities Extrem General: Yes no pedal edema Results Reviewed Nephrology Results: Sodium, (135-145) 138 mmol/L 05/30/25 Potassium, (3.3-5.1) 4.5 mmol/L 05/30/25 Chloride, (96-108) 112 mmol/L H 05/30/25 Carbon Dioxide, (22-29) 19 mmol/L L 05/30/25 BUN, (9-16) 54 mg/dL H 05/30/25 Creatinine, (0.5-1.4) 3.82 mg/dL H 05/30/25 Renal US 09/05/24 Assessment & Plan Assessment & Plan (1) Hypertension: Code(s): I10 - Essential (primary) hypertension Category: Medical Qualifiers: Hypertension type: essential hypertension Qualified Code(s): I10 - Essential (primary) hypertension (2) CKD (chronic kidney disease) stage 4, GFR 15-29 ml/min: Code(s): N18.4 - Chronic kidney disease, stage 4 (severe) Category: Medical Plan 70-year-old man with a history of longstanding hypertension dyslipidemia and peripheral vascular disease in the setting of chronic smoking currently has progressive chronic kidney disease, likely from ischemic nephropathy. He is S/P B/L renal artery stenting. His BP has been labile and medications have been adjusted with improvement. . He avoids NSAID's. He could continue rest of current medications for now. During his previous visits, I had discussed about declining renal function and need for renal replacement in the future. Follow up given Orders: Orders Creatinine 3 Months I10 - Essential (primary) hypertension, N18.4 - Chronic kidney disease, stage 4 (severe) Blood Urea Nitrogen 3 Months I10 - Essential (primary) hypertension, N18.4 - Chronic kidney disease, stage 4 (severe) Electrolytes 3 Months I10 - Essential (primary) hypertension, N18.4 - Chronic kidney disease, stage 4 (severe) Complete Blood Count Auto Diff 3 Months I10 - Essential (primary) hypertension, N18.4 - Chronic kidney disease, stage 4 (severe) Coding Level of Care Code Est Pt Level 4 (30691) Diagnoses Essential hypertension I10 Hypertension type: essential hypertension CKD (chronic kidney disease) stage 4, GFR 15-29 ml/min N18.4
[2025-06-30 13:58] VITALS: BP 170/80; BMI 20.6
--- OUTSIDE RECORDS SUMMARY | 2025-06-30 17:53 | XMS_ITS | Clinical Summary ---
Author Organization [facility] Address [address] [place] [id number] Phone Care Team Providers Care Jd Edwards Consultant Name Role Phone Michael Chery MD Primary Care Provider [phone] Allergies Active Allergy Reactions Criticality Noted Date [...] are stable. Will cont vorapaxar. Atherosclerosis of [place] ronary artery of [place] heart without angina pectoris 08/28/2017 Assessment & [...] POS HMO POS O POS HMO POS [facility] Care Teams Jd Edwards Consultant Relationship Specialty Start Date End Date Michael Chery MD [address] [place] [id number] PCP - General Internal Medicine 04/09/18 Additional Source Comments The information contained in this document represents components of the legal health record. It is not the complete legal health record.[facility]
--- OUTSIDE RECORDS SUMMARY | 2025-06-30 17:53 | XMS_ITS | Encounter Summary ---
Author Organization [facility] Address [address] [place] [address] Phone Care Team Providers Care Fine Arts Instructor Name Role Phone Michael Chery MD Primary Care Provider [phone] Encounter Details Date Type Department Care Team (Latest Contact Info) Description 03/30/2018 Ancillary Orders [facility] [address] [place] [address] Jacqueline Landis MD [id number] [place] [address] [email or web address] Peripheral vascular disease; Other specified [...] aorta documented in this encounter Care Teams Fine Arts Instructor Relationship Specialty Start Date End Date Michael Chery MD [address] [place] [id number] PCP - General Internal Medicine 04/09/18 documented as of this encounter Additional Source Comments The information contained in this document represents components of the legal health record. It is not the complete legal health record.[facility]
== END 2025-06-30 14:39 | disposition home or self-care (01) ==
LOC: HO.HKA 13:40
PROVIDERS: PCP Internal Medicine; Visit Provider Internal Medicine Nephrology
DX: I12.9 Hypertensive chronic kidney disease with stage 1 through stage 4 chronic kidney disease, or unspecified chronic kidney disease (principal); N18.4 Chronic kidney disease, stage 4 (severe)
CPT/HCPCS: 99214

== ENCOUNTER → 2025-06-30 13:39 | Outpatient (BNVA) | payer MEDICARE, SELFPAY | PROVIDERS: PCP Internal Medicine; Visit Provider Internal Medicine Nephrology | DX: I10 Essential (primary) hypertension (principal); N18.4 Chronic kidney disease, stage 4 (severe) | CPT/HCPCS: 99212 ==

== ENCOUNTER 2025-07-04 10:07 | Outpatient (AMB) | payer MEDICARE, SELFPAY ==
[2025-07-04 10:16] VITALS: BP 158/70; PULSE 72; RESP 18; O2SAT 100; BMI 20.6
--- NOTE | 2025-07-04 10:16 | A.OFFPC_ITS ---
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 Accompanied by: Self / Same As Patient Allergies Penicillins Adverse Reaction (Intermediate, Verified 07/04/25 10:17) rash hydralazine Adverse Reaction (Mild, Verified 07/04/25 10:17) Diarrhea nifedipine Adverse Reaction (Mild, Verified 07/04/25 10:17) Nausea Medication List - Last Reconciled 07/04/25 by Yoselin Blanco MD aspirin (Adult Aspirin Regimen) 81 mg PO DAILY@0600 atorvastatin 80 mg PO .QD bumetanide 1 mg PO Q OTHER DAY cholecalciferol (vitamin D3) 50 mcg PO DAILY clonidine HCl 0.1 mg PO BID 90 days cyanocobalamin (vitamin B-12) 500 mcg PO DAILY@1800 finasteride 5 mg PO DAILY 90 days hydralazine 100 mg See Protocol PO BID 90 days hydroxyzine HCl 25 mg PO BID PRN metoprolol succinate ER 150 mg (1.5 x 100 mg) PO DAILY spironolactone 75 mg (1.5 x 50 mg) PO DAILY 90 days terazosin 5 mg PO BEDTIME 90 days Tobacco use date assessed: 07/04/25 Fall risk assessment: No Falls in past year Last assessed Fall Risk: 07/04/25 Dental Screening Dental Screen Date: 07/04/25 Did you have a dental visit in the last 12 months?: Yes Did you have a dental problem in the last 6 months where you did not have access to dental care?: No Was dental information given to patient?: Patient has dentist HPI HPI Comments History of Present Illness Details The patient is a 70 year old male with PMH of COPD, HTN, CAD, CKD 3B, and PVD, presenting with pruritus and a rash. He has been experiencing itching for quite some time, with symptoms starting last September during a hospitalization for pneumonia. The rash appeared as hives or welts, located on his lower belly, under the armpits, and arms. He suspects the itching may be a side effect of his medications, as multiple new blood pressure drugs were started around the time the symptoms began. Previously, he was on amlodipine and atorvastatin, but was switched to metoprolol, spironolactone, hydralazine, and clonidine. He has tried calamine lotion, hydroxyzine, and Claritin, with some improvement. The patient has a history of poorly controlled hypertension despite being on multiple medications, with a recent reading of 158/70 mmHg. He has chronic kidney disease and underwent a procedure for two kidney stents. He sees a kidney specialist, who is managing his medications and has advised against changes due to his proximity to needing dialysis. [facility] Medical History CKD stage 3b, GFR 30-44 ml/min Renal insufficiency History of stent insertion of renal artery CKD (chronic kidney disease) Subarachnoid hemorrhage Tubular adenoma COVID-19 vaccination refused History of testicular cancer Peripheral arterial disease Hypercholesterolemia Coronary artery disease Tobacco abuse COPD (chronic obstructive pulmonary disease) Hypertension Surgical History History of surgery Hx of colonoscopy Hx of prostate biopsy History of tonsillectomy History of testicular surgery Family History Father No problems noted. Mother No problems noted. Maternal Grandmother Myocardial infarction Brother Bone cancer Sister No problems noted. Son In good health Son In good health Daughter In good health Sister Diabetes Social History Household Members: Spouse, Significant Other and Family Household Members Other:: 6 Housing: House Are you a primary senior care manager to a significant other at home: No Do you presently have visiting nurse or other home services: No Alcohol intake: former Patient Tobacco Use Status: Former Tobacco user Tobacco use type: Cigarette Cigarette Packs Per Day: 0.5 Cigarettes Per Day: 2 Years Smoked: 53 years- 10/PER DAY stopped smoking 07/2024 Packs Per Year: 0 Packs per year/per ci.00 e-Cigarette/Vaping Use: Never Used Second Hand Smoke Exposure: Yes service: No Current occupational status: employed Current occupational exposures/hazards: No Cognitive needs: No Hearing needs: No Vision needs: Yes Questionnaire PHQ-9 Over the last 2 weeks, how often have you been bothered by any of the following problems? 1. Little interest or pleasure in doing things: not at all 2. Feeling down, depressed, or hopeless: not at all 3. Trouble falling or staying asleep, or sleeping too much: not at all Source: Developed by Drs. Tad Angel, Jennie Nicole, Tello Mendoza and colleagues, with an educational noemi from [employer]. Thrive Questionnaire Date Thrive assessed: 07/04/25 I am a: Patient What is your living situation today?: I have a steady place to live Within the past 12 months, did the food you bought not last and you didn't have the money to get more?: Never true Within the past 12 months, did you worry whether your food would run out before you got money to buy more?: Sometimes True Do you have trouble paying for medicines?: No Do you have trouble getting transportation to medical appointments?: No Do you have trouble paying your heating and electricity bill?: I choose not to answer this question Do you have trouble taking care of your child, family member or friend?: No Do you have trouble with day-to-day activities such as bathing, preparing meals, shopping, managing finances, etc.?: No Are you currently unemployed and looking for a job?: No Are you interested in more education?: No Please select the resources that you would like help with: None Currently or been in a relationship where the following occur: I choose not to answer THRIVE Score: 1 BIANCA-7 AMB Questionnaire BIANCA-7 Date BIANCA - 7 assessed: 01/03/25 Source: Developed by Drs. Tad Angel, Jennie Nicole, Tello Mendoza and colleagues, with an educational noemi from [employer]. Review of Systems Const Details: As per HPI. Physical exam (Primary Care) Vital Signs: Last Vital Signs Pulse 72 07/04/25 10:16 Resp 18 07/04/25 10:16 BP 158/70 H 07/04/25 10:16 Pulse Ox 100 07/04/25 10:16 Oxygen Delivery Method Room Air 07/04/25 10:16 BMI result Body Mass Index 20.6 Tobacco/Smoking Status: Tobacco use Status Tobacco use date assessed 07/04/25 07/04/25 10:24 Patient Tobacco Use Status Former Tobacco user 07/04/25 10:24 Tobacco use type Cigarette 07/04/25 10:24 e-Cigarette/Vaping Use Never Used 07/04/25 10:24 Thrive Assessment: Date of Thrive Assessment Date Thrive assessed 07/04/25 07/04/25 10:24 Currently or been in a relationship where the following occur: I choose not to answer Const Other: Pertinent findings are in BOLD GENERAL APPEARANCE NAD, activity normal for age, well developed/ well nourished, no cyanosis, pallor, or diaphoresis. EYES lids/conjunctiva normal. EARS/NOSE/THROAT Mucous membranes moist, nares normal, lips/teeth normal uvula midline without oral pharyngeal erythema, exudate or swelling TMs normal bilaterally. No lymphangitis/lymphedema. HEAD/NECK normocephalic atraumatic, no facial trauma, neck is supple. RESPIRATORY respiratory effort normal, speaks in full sentences, no tripod position, no accessory muscle use. Lungs clear to auscultation without rhonchi, wheezes, rales CARDIAC Regular rate and rhythm, no edema. ABDOMINAL Soft, ND/NT. No evidence of fluid wave. No pulsatile masses on exam, rebound tenderness, Julian sign or pain over Mcburney's point. MUSCLES/EXTREMITIES No abnormal range of motion, no swelling. SKIN Warm, pink and dry. No rashes, dermatoses, petechiae or lesions. Diffuse eczema on the patient's abdomen, chest, and uper arms. NEUROLOGICAL Speech is clear and appropriate. Normal level of consciousness. Gait and coordination are normal. 5/5 strength in all extremities. PSYCH Normal mood and affect. Judgement/competence is appropriate Coding Level of Care Code Est Pt Level 3 (45856) Diagnoses Eczema, unspecified type L30.9 Eczema type: unspecified Time Spent (min) 20 Assessment & Plan Assessment & Plan (1) Eczema: Comment: Diffuse on abdomen and chest. Code(s): L30.9 - Dermatitis, unspecified Category: Medical Qualifiers: Eczema type: unspecified Qualified Code(s): L30.9 - Dermatitis, unspecified Plan: - The etiology of the pruritus is unclear but is suspected to be multifactorial, possibly related to eczema, medication side effects, or his underlying kidney disease. - The patient will continue taking hydroxyzine up to twice a day and one tablet of Claritin or Zyrtec daily for symptomatic control. - Benadryl is not recommended due to its sedative effects. - Frequent application of moisturizing lotion is encouraged. - The patient has an appointment with a generator worker in September and has been placed on a waiting list for an earlier appointment. - He is advised to bring a list of medications that were started around the time the itching began to his dermatology appointment. Plan I explained to the patient that his case is complex, with the itching likely being a byproduct of his multiple medical issues, particularly his kidney disease vs side effect from BP medications. I advised that determining the exact medication causing the rash is difficult, as any of his current medications could be responsible, and stopping any of them could lead to a dangerous increase in his blood pressure. I recommended continuing his current treatment with hydroxyzine and Claritin/Zyrtec to manage the itching until he can be seen by the generator worker. I refilled his hydroxyzine prescription and advised him to prepare a list of his medications for the dermatology consult. I also cautioned him about potential drowsiness from these medications and advised against driving long distances while taking them. We discussed that while the generator worker may help, they may not be able to definitively identify the offending medication, and the primary goal for now is symptom control. Medications: Refilled hydroxyzine HCl 25 mg PO BID PRN 30 tabs 0RF itching
== END 2025-07-04 10:53 | disposition home or self-care (01) ==
LOC: HO.HMCH 10:07
PROVIDERS: PCP Internal Medicine; Visit Provider Internal Medicine
DX: L30.9 Dermatitis, unspecified (principal)

== ENCOUNTER → 2025-07-04 10:07 | Outpatient (BNVA) | payer MEDICARE, SELFPAY | PROVIDERS: PCP Internal Medicine; Visit Provider Internal Medicine | DX: L30.9 Dermatitis, unspecified (principal) | CPT/HCPCS: 99212 ==

== ENCOUNTER 2025-07-17 13:05 | Outpatient (REF) | payer MEDICARE, SELFPAY ==
--- OUTSIDE RECORDS SUMMARY | 2025-07-17 16:26 | XMS_ITS | Clinical Summary ---
Author Organization [facility] Address [address] [place] [id number] Phone Care Team Providers Care [employer] Name Role Phone Michael Chery MD Primary Care Provider [phone] Allergies Active Allergy Reactions Criticality Noted Date [...] are stable. Will cont vorapaxar. Atherosclerosis of squaxin co ronary artery of squaxin heart without angina pectoris 08/28/2017 Assessment & [...] POS HMO POS O POS [facility] Care Teams [employer] Teacher Relationship Specialty Start Date End Date Michael Chery MD [address] [place] [phone] PCP - General Internal Medicine 04/09/18 Additional Source Comments The information contained in this document represents components of the legal health record. It is not the complete legal health record.[facility]
--- OUTSIDE RECORDS SUMMARY | 2025-07-17 16:26 | XMS_ITS | Encounter Summary ---
Author Organization [facility] Address [address] [place] [address] Phone Care Team Providers Care Line Department Supervisor Name Role Phone Michael Chery MD Primary Care Provider [phone] Encounter Details Date Type Department Care Team (Latest Contact Info) Description 03/30/2018 Ancillary Orders [facility] [address] [place] [address] [address], [address] [place] [address] Jacqueline Landis MD [phone] [place] [address] [email or web address] Peripheral vascular disease; Other specified [...] aorta documented in this encounter Care Teams Line Department Supervisor Relationship Specialty Start Date End Date Michael Chery MD [address] [place] [phone] PCP - General Internal Medicine 04/09/18 documented as of this encounter Additional Source Comments The information contained in this document represents components of the legal health record. It is not the complete legal health record.[facility]
== END 2025-07-17 13:06 | disposition home or self-care (01) ==
LOC: HO.US 13:05
PROVIDERS: PCP Internal Medicine; Visit Provider Surgery Vascular Surgery
DX: I73.9 Peripheral vascular disease, unspecified (principal)
CPT/HCPCS: 93925

== ENCOUNTER → 2025-07-17 13:10 | Outpatient (BNV) | payer MEDICARE, SELFPAY | PROVIDERS: PCP Internal Medicine; Visit Provider Radiology Diagnostic Radiology | DX: I73.9 Peripheral vascular disease, unspecified (principal) | CPT/HCPCS: 93925 ==